=== PATIENT | male | born 1970 | race African-American/Black ===

== ENCOUNTER 2016-05-23 16:50 | Inpatient (IN) | payer MEDICARE, OTHER ==
[~2016-05-23] VITALS: Ht 172.7 cm; Wt 84.0 kg
[~2016-05-23 16:50] MED LIST: BACT800T5 PO; CALC667C; CARV12.52 PO; CEPH-460 PO; DOXE100C4 PO; FINA5TAB2 PO; HYDR-3533 PO; HYDR50TA15 PO; LOSA100T PO; NEPHRO PO; NOVO7030P2 SQ
[2016-05-23 16:54] VITALS: BP 188/86; PULSE 99; RESP 18; TEMP 99; O2SAT 94
[2016-05-23] MEDS ORDERED: ONDANSETRON HCL 4 MG/2 ML VIAL IV PUSH ONE (17:30)
[2016-05-23] MEDS ORDERED: MORPHINE SULFATE 4 MG/ML INJ IV PUSH ONE (17:30)
--- NOTE | 2016-05-23 17:31 | PD ---
HPI Chief Complaint: Cold / Flu Symptoms Time Seen by Provider: 17:27 Travel History International Travel<30 days: No Contact w/Intl Traveler<30days: No Traveled to known affect area: No History of Present Illness HPI 45-year-old male that presents to the ED for evaluation of shortness of breath with cough and runny nose as well as body aches. Per patient he has a history of diabetes with dialysis every Tuesday, , Tuesday. Per patient he missed his dose yesterday secondary to being out of town. The patient since Tuesday his been having the symptoms including a cough and some shortness of breath. Per patient is hard for him to lay down because of the shortness of breath. Per patient his been having a lot of cough that is productive with green mucus. He denies any actual chest pain but states that he does have some right upper chest pain as well as abdominal pain secondary to the coughing. He states having some diarrhea as well. No urinary issues but able to urinate. Patient denies any fevers but states having some chills and sweats. Patient denies any sick contacts. Patient does have allergies to contrast media, Reglan , seafood. Denies any headache. No blurry vision. No ear pain or throat pain. PFSH Past Medical History Anemia: Yes Arthritis: No Asthma: No (DENIES ASTHMA) Autoimmune Disease: No Blood Disorders: No Anxiety: Yes Depression: No Heart Rhythm Problems: Yes (TACHYCARDIA) Cancer: No Cardiac Catheterization: No Cardiovascular Problems: Yes (HTN) High Cholesterol: No Chemotherapy: No Chest Pain: Yes Congestive Heart Failure: No COPD: No Cerebrovascular Accident: No Diabetes: Yes Dialysis: Yes (M ) Diminished Hearing: No Endocrine: Yes Gastrointestinal Disorders: Yes (GASTROPORESIS; LBM SAT 8/1) GERD: No Glaucoma: No Genitourinary: Yes (RENAL FAILURE) Headaches: Yes Hepatitis: No Hiatal Hernia: No Hypertension: Yes Immune Disorder: No (SICKLE CELL TRAIT) Implanted Vascular Access Dvce: Yes (PORT) Kidney Stones: No Musculoskeletal: Yes (vertrabrae fx lower back) Neurologic: Yes (NEUROPATHY IN LEGS) Psychiatric: Yes (anxiety and depression) Reproductive: No Respiratory: No Immunizations Current: Yes Myocardial Infarction: No Radiation Therapy: No Renal Failure: Yes Seizures: Yes Sleep Apnea: No Thyroid Disease: No Ulcer: No PNEUMOCCOCAL Vaccine (Year): 1 Past Surgical History Abdominal Surgery: Yes (multiple surgeries due to poor sweat glands) AICD: No Arteriovenous Shunt: No Body Medical Devices: left arm fistula; right chest port TENCHKOFF Cardiac Surgery: No Coronary Artery Bypass Graft: No Ear Surgery: No Endocrine Surgery: No Eye Surgery: No Genitourinary Surgery: Yes (TENKCHOFF TUBE FOR PD ) Gynecologic Surgery: No Insulin Pump: No Joint Replacement: No Oral Surgery: No Pacemaker: No Thoracic Surgery: No Other Surgery: Yes (FISTULA UPPER LEFT ARM, ABCESS ) Social History Alcohol Use: No Tobacco Use: No Substance Use: No Allergies-Medications (Allergen,Severity, Reaction): Coded Allergies: Contrast Media (Unverified Allergy, Severe, nausea/vomiting, 04/20/16) causes n/v HAD TEST TODAY 11/15/11 TOOK BENADRYL AND DID OK. Reglan (Verified Allergy, Severe, ANXIETY, 04/20/16) Seafood (Verified Allergy, Severe, SWELLING-CANT BREATH-HIVES, 04/20/16) Reported Meds & Prescriptions Reported Meds & Active Scripts Active Lortab (Hydrocodone-Acetaminophen) 5-325 Mg Tab 1-2 Tab PO Q6H PRN Keflex (Cephalexin) 500 Mg Cap 500 Mg PO Q6H Bactrim DS (Sulfamethoxazole-Trimethoprim) 800-160 Mg Tab 1 Tab PO BID Reported Nephro-Adan Rx (Vitamin B Cmplx/Vit C/Folic AC) 1 Tab 1 Tab PO Novolin 70-30 Inj (Insulin Human Isoph/Insulin Regular) 1,000 Unit/10 Ml Vial 1 Units SQ Losartan (Losartan Potassium) 100 Mg Tab 100 Mg PO HS Hydralazine (Hydralazine HCl) 50 Mg Tab 50 Mg PO TID Take with a meal Finasteride 5 Mg Tab 5 Mg PO DAILY Do not crush. Doxepin (Doxepin HCl) 100 Mg Cap 100 Mg PO HS Carvedilol 12.5 Mg Tab 12.5 Mg PO BID Calcium Acetate (Calcium Acetate (Phosphate Bin) 667 Mg Cap Review of Systems Except as stated in HPI: all other systems reviewed are Neg Physical Exam Narrative GENERAL: SKIN: Warm and dry. HEAD: Atraumatic. Normocephalic. EYES: Pupils equal and round. No scleral icterus. No injection or drainage. ENT: No nasal bleeding or discharge. Mucous membranes pink and moist. Tongue is midline. No uvula deviation. TMs are clear with a sign of infection or perforation. No lymphadenopathy. No meningeal signs noted. No sinus tenderness. No mastoid tenderness. NECK: Trachea midline. No JVD. CARDIOVASCULAR: Regular rate and rhythm. No obvious murmurs, S3, S4. RESPIRATORY: No accessory muscle use. Mild rales in the lower lung cha.. Breath sounds equal bilaterally. GASTROINTESTINAL: Abdomen soft, non-tender, nondistended. Hepatic and splenic margins not palpable. MUSCULOSKELETAL: Extremities without clubbing, cyanosis, or edema. No obvious deformities. Full range of motion of the upper and lower extremities bilaterally. 2+ pulses bilaterally. NEUROLOGICAL: Awake and alert. No obvious cranial nerve deficits. Motor grossly within normal limits. Five out of 5 muscle strength in the arms and legs. Normal speech. PSYCHIATRIC: Appropriate mood and affect; insight and judgment normal. Data Data Last Documented VS Vital Signs Date Time Temp Pulse Resp B/P Pulse Ox O2 Delivery O2 Flow Rate FiO2 05/23/16 19:07 97 Room Air 05/23/16 19:07 97 22 172/82 2 05/23/16 16:54 99.0 Orders Electrocardiogram (05/23/16 17:08) Complete Blood Count With Diff (05/23/16 17:08) Comprehensive Metabolic Panel (05/23/16 17:08) Troponin I (05/23/16 17:08) B-Type Natriuretic Peptide (05/23/16 17:08) Prothrombin Time / Inr (Pt) (05/23/16 17:08) Act Partial Throm Time (Ptt) (05/23/16 17:08) Lipase (05/23/16 17:08) Urinalysis - C+S If Indicated (05/23/16 17:08) Chest, Pa & Lat (05/23/16 17:08) Iv Access Insert/Monitor (05/23/16 17:08) Ecg Monitoring (05/23/16 17:08) Oximetry (05/23/16 17:08) Ondansetron Inj (Zofran Inj) (05/23/16 17:30) Morphine Inj (Morphine Inj) (05/23/16 17:30) Lactic Acid (05/23/16 17:29) Influenzae A/B Antigen (05/23/16 17:33) Oxygen Administration (05/23/16 19:00) Sodium Polysty Sulfate Liq (Kayexalate L (05/23/16 19:00) Admit Order (Ed Use Only) (05/23/16 19:26) Labs Laboratory Tests Test 05/23/16 05/23/16 05/23/16 17:25 17:35 18:05 White Blood Count 7.7 TH/MM3 Red Blood Count 3.05 MIL/MM3 Hemoglobin 8.2 GM/DL Hematocrit 25.6 % Mean Corpuscular Volume 84.0 FL Mean Corpuscular Hemoglobin 26.8 PG Mean Corpuscular Hemoglobin 31.9 % Concent Red Cell Distribution Width 20.4 % Platelet Count 278 TH/MM3 Mean Platelet Volume 7.0 FL Neutrophils (%) (Auto) 71.0 % Lymphocytes (%) (Auto) 10.5 % Monocytes (%) (Auto) 13.0 % Eosinophils (%) (Auto) 4.9 % Basophils (%) (Auto) 0.6 % Neutrophils # (Auto) 5.5 TH/MM3 Lymphocytes # (Auto) 0.8 TH/MM3 Monocytes # (Auto) 1.0 TH/MM3 Eosinophils # (Auto) 0.4 TH/MM3 Basophils # (Auto) 0.0 TH/MM3 CBC Comment DIFF FINAL Differential Comment Prothrombin Time 11.9 SEC Prothromb Time International 1.1 RATIO Ratio Activated Partial 36.2 SEC Thromboplast Time Sodium Level 133 MEQ/L Potassium Level 5.7 MEQ/L Chloride Level 100 MEQ/L Carbon Dioxide Level 20.9 MEQ/L Anion Gap 12 MEQ/L Blood Urea Nitrogen 58 MG/DL Creatinine 11.58 MG/DL Estimat Glomerular Filtration 6 ML/MIN Rate Random Glucose 63 MG/DL Calcium Level 8.8 MG/DL Total Bilirubin 0.3 MG/DL Aspartate Amino Transf 17 U/L (AST/SGOT) Alanine Aminotransferase 14 U/L (ALT/SGPT) Alkaline Phosphatase 109 U/L Troponin I 0.10 NG/ML B-Type Natriuretic Peptide 226 PG/ML Total Protein 8.4 GM/DL Albumin 3.0 GM/DL Lipase 125 U/L Lactic Acid Level 0.8 mmol/L Urine Color LIGHT-YELLOW Urine Turbidity CLEAR Urine pH 7.5 Urine Specific [place] 1.008 Urine Protein 100 mg/dL Urine Glucose (UA) NEG mg/dL Urine Ketones NEG mg/dL Urine Occult Blood SMALL Urine Nitrite NEG Urine Bilirubin NEG Urine Urobilinogen LESS THAN 2.0 MG/DL Urine Leukocyte Esterase NEG Urine RBC 8 /hpf Urine WBC LESS THAN 1 /hpf Urine Squamous Epithelial <1 /hpf Cells Urine Mucus FEW /lpf Microscopic Urinalysis Comment CULT NOT INDICATED MDM Medical Decision Making Medical Screen Exam Complete: Yes Emergency Medical Condition: Yes Medical Record Reviewed: Yes Interpretation(s) Last Impressions Chest X-Ray 05/23/16 1708 Signed Impressions: Service Date/Time: Monday, May 23, 2016 17:44 - CONCLUSION: Probable mild pulmonary edema. Morgan Cameron MD CBC & BMP Diagram 05/23/16 17:25 troponin in 0.10 EKG showed sinus rhythm with no sign of acute ischemia or arrhythmia read by me and attending. Differential Diagnosis Pneumonia versus viral illness versus sinusitis versus fluid overload versus CHF versus electrolyte abnormality secondary to missed dialysis Narrative Course 45-year-old male that presents to the ED for evaluation of cough and shortness of breath. Patient was properly examined and was found to have signs and symptoms of surgery at this time. Patient does have risk factors for severe illness including full overload secondary to not having his dialysis. Labs and imaging were ordered. Patient was given pain medication and Zofran as he was throwing up. Labs and imaging showed signs and symptoms consistent with appears to be fluid overload secondary from missing dialysis. Patient is hyperkalemic. Patient does have fluid on the lungs. Likely the cause of some of his symptoms. Recommendation is to admit him. Case was discussed with Dr. Carroll who agrees to do dialysis tomorrow. He wants me to do Kayexalate for now PO to fix hyperkalemia. Residents were paged and they agreed to admission Procedures EKG Prior to Arrival: No Diagnosis Primary Impression: Pulmonary edema Qualified Code: J81.0 - Acute pulmonary edema Additional Impressions: SOB (shortness of breath) ESRD (end stage renal disease) on dialysis Elevated troponin Admitting Information Admitting Physician Requests: Admit Heriberto Herron May 23, 2016 17:31
[2016-05-23 17:45] VITALS: RESP 21; O2SAT 96
[2016-05-23 18:09] LABS: AUTOMATED NEUTROPHIL # 5.5 TH/MM3 (1.8-7.7); BASOPHIL % 0.6 % (0.0-2.0); EOSINOPHIL # 0.4 TH/MM3 (0-0.4); EOSINOPHIL % 4.9 % (0.0-4.0); HEMATOCRIT 25.6 % (39.0-51.0); HEMO FLAGS DIFF FINAL; LYMPH % 10.5 % (9.0-44.0); LYMPHOCYTE # 0.8 TH/MM3 (1.0-4.8); MEAN CORPUSCULAR HEMOGLOBIN 26.8 PG (27.0-34.0); MEAN CORPUSCULAR HGB CONC 31.9 % (32.0-36.0); PLATELET COUNT 278 TH/MM3 (150-450); RED BLOOD COUNT 3.05 MIL/MM3 (4.50-5.90); RED CELL DISTRIBUTION WIDTH 20.4 % (11.6-17.2); WHITE BLOOD COUNT 7.7 TH/MM3 (4.0-11.0)
[2016-05-23 18:14] LABS: APTT (PATIENT) 36.2 SEC (24.3-30.1); INTERNATIONAL NORMALIZED RATIO 1.1 RATIO; PROTHROMBIN TIME - PATIENT 11.9 SEC (9.8-11.6)
[2016-05-23 18:19] LABS: ANION GAP 12 MEQ/L (5-15)
[2016-05-23 18:24] LABS: ALKALINE PHOSPHATASE 109 U/L (45-117); ALT (GPT) 14 U/L (12-78); AST (GOT) 17 U/L (15-37); BICARBONATE 20.9 MEQ/L (21.0-32.0); BLOOD UREA NITROGEN 58 MG/DL (7-18); CHLORIDE 100 MEQ/L (98-107); GLOMERULAR FILTRATION RATE 6 ML/MIN (>89); POTASSIUM 5.7 MEQ/L (3.5-5.1); SODIUM (NA) 133 MEQ/L (136-145); TOTAL BILIRUBIN ADULT 0.3 MG/DL (0.2-1.0)
--- NOTE | 2016-05-23 18:26 | RADRPT ---
EXAM DATE/TIME: 05/23/2016 17:44 [facility] COMPARISON: CHEST SINGLE AP, December 29, 2014, 15:44. INDICATIONS : Shortness of breath and congestion. MEDICAL HISTORY : Diabetes mellitus type II. Hypertension. SURGICAL HISTORY : Infusaport. ENCOUNTER: Initial ACUITY: 3 days PAIN SCORE: 3/10 LOCATION: Bilateral chest FINDINGS: Right subclavian [id number] is present with tip overlapping the expected region of the SVC. Slight interstitial process is seen in the lungs bilaterally may represent pulmonary edema. Focal consolida tion is not seen. CONCLUSION: Probable mild pulmonary edema. Morgan Cameron MD on May 23, 2016 at 18:23 Board Certified Radiologist. This report was verified electronically.
[2016-05-23 18:36] LABS: BLOOD, URINE SMALL (NEG); COMMENT (UR) CULT NOT INDICATED; CULTURE IF INDICATED CULT NOT INDICATED; GLUCOSE,URINE NEG (NEG); KETONE, URINE NEG (NEG); MUCUS URINE FEW /lpf (OCC); NITRITE,URINE NEG (NEG); PH, URINE 7.5 (5.0-8.5); SQUAMOUS EPITHELIAL CELL URINE <1 /hpf (0-5); URINE COLOR LIGHT-YELLOW (YELLW/STRAW)
[2016-05-23] MEDS ORDERED: SODIUM POLYSTYRENE SULFONATE SUSP 15 GM/60 ML CUP PO ONE (19:00)
[2016-05-23 19:07] VITALS: BP 172/82; PULSE 97; RESP 22; O2SAT 100
--- NOTE | 2016-05-23 19:12 | HHI.HP ---
[facility] Service Family Medicine Primary Care Physician Blair Richardson MD Admission Diagnosis Diagnoses: International Travel<30 Days: No Contact w/Intl Traveler<30days: No Known Affected Area: No History of Present Illness Tuesday started getting a nasty cough, sneezing, diarrhea, abdominal pain with cough, pain that shoots from his right shoulder to his back, decreased appetite , couldn't lie down because of shortness of breath that felt like drowning. Because he was in [place], helping with some family affairs, he missed HD on Tuesday. Hat Blocker and PCP Dr. Richardson. Coughing up clear thick sputum. Diarrhea all liquid. Vomiting not bloody or black. 15 episodes of vomiting since Tuesday. 10 episodes of diarrhea since Tuesday. He feels weak, tired. He reports that he almost passed out walking from car to registration desk. When going from sitting to standing, he feels very dizzy. He denies chills, but endorses fever to 101F this morning. He does not make much but still makes urine. He denied any dysuria. He reports having a headache off and on since Tuesday. His headache has been constant since this morning. His headache resolved with morphine. He denies any sick contacts. He endorses sore throat from vomiting. He denies any syncope, seizures, chest pain Hasn't slept since Tuesday. All this symptoms have become progressively worse since Tuesday. Rash for over a month. He endorses body aches. Per patient he has a history of diabetes and hypertension with dialysis every Tuesday, , Tuesday. Review of Systems Constitutional: COMPLAINS OF: Fatigue, Fever, Dizziness (with standing), Change in appetite (decrease), Night Sweats, DENIES: Chills Endocrine: DENIES: Polyuria Eyes: DENIES: Blurred vision, Vision loss Ears, nose, mouth, throat: COMPLAINS OF: Throat pain, Running Nose, DENIES: Sinus Pain Respiratory: COMPLAINS OF: Cough, Wheezing, Sputum production, Shortness of breath Cardiovascular: COMPLAINS OF: Dyspnea on Exertion, Lower Extremity Edema ( right foot swollen), DENIES: Chest pain, Palpitations, Syncope Gastrointestinal: COMPLAINS OF: Abdominal pain, Diarrhea, Nausea, Vomiting, Anorexia, DENIES: Black stools, Bloody stools, Constipation Genitourinary: DENIES: Dysuria Musculoskeletal: COMPLAINS OF: Muscle aches (right shoulder to back, whole body aches) Integumentary: COMPLAINS OF: Rash (diffuse rash, worst on left arm; clearing with abx) Hematologic/lymphatic: DENIES: Bruising Neurologic: COMPLAINS OF: Headache, Localized weakness, DENIES: Paresthesias, Seizures Psychiatric: DENIES: Anxiety, Confusion, Depression Past Family Social History Past Medical History hydradenitis TIA as teenager seizures from to 11-12 yo 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 left arm fistula; right chest port for IV blood draws because he is a tough stick. Tenckhoff tube in abdomen for PD is closed. His fistula occasionally needs ballooning. Reported Medications Reported Nephro-Adan Rx (Vitamin B Cmplx/Vit C/Folic AC) 1 Tab PO qd Patient reports that he has not had to use any insulin for over a year Losartan 100 Mg PO HS Hydralazine 50 Mg PO TID Finasteride 5 Mg PO DAILY Doxepin 100 Mg PO HS Carvedilol 12.5 Mg PO BID vs. 25mg Calcium Acetate 667 Mg Cap amlodipine calcitriol Cephalexin for rash and hydradenitis Clinda for same Metronidazole 500mg Renvela 800mg Rifampin 300mg spironolactone 50mg Allergies: Coded Allergies: Contrast Media (Unverified Allergy, Severe, nausea/vomiting, 04/20/16) causes n/v HAD TEST TODAY 11/15/11 TOOK BENADRYL AND DID OK. Reglan (Verified Allergy, Severe, ANXIETY, 04/20/16) Seafood (Verified Allergy, Severe, SWELLING-CANT BREATH-HIVES, 04/20/16) Social History Alcohol Use: No Tobacco Use: No Substance Use: No Physical Exam Vital Signs Vital Signs Date Time Temp Pulse Resp B/P Pulse Ox O2 Delivery O2 Flow Rate FiO2 05/23/16 19:07 97 Room Air 05/23/16 19:07 97 22 172/82 100 Nasal Cannula 2 05/23/16 17:45 21 96 Room Air 05/23/16 17:15 21 96 Room Air 05/23/16 16:54 99.0 99 18 188/86 94 Physical Exam GENERAL: sitting up in bed, appear uncomfortable but in NAD. SKIN: Warm and dry. Surgical scars at the back of the neck. Dry scaly confluent circular lesions form of diffuse rash all over the body but most notably on the left arm HEAD: Atraumatic. Normocephalic. EYES: Pupils equal and round. No scleral icterus. No injection or drainage. ENT: No nasal bleeding or discharge. Mucous membranes pink and moist. Tongue is midline. No uvula deviation. No lymphadenopathy. No meningeal signs noted. No sinus tenderness. NECK: Trachea midline. No JVD. CARDIOVASCULAR: Regular rate and rhythm with 2 to 3/6 systolic murmur RESPIRATORY: No accessory muscle use. Mild rales in the lower lung cha. Coarse Breath sounds equal bilaterally. GASTROINTESTINAL: Positive bowel sounds. Abdomen soft, non-tender, nondistended. MUSCULOSKELETAL: Extremities without clubbing, cyanosis, or edema. No obvious deformities. Full range of motion of the upper and lower extremities bilaterally. 2+ distal pulses bilaterally. NEUROLOGICAL: Awake and alert. No obvious cranial nerve deficits. Motor grossly within normal limits. Normal speech. PSYCHIATRIC: Appropriate mood and affect; insight and judgment normal. Laboratory Laboratory Tests Test 05/23/16 05/23/16 05/23/16 17:25 17:35 18:05 White Blood Count 7.7 Red Blood Count 3.05 Hemoglobin 8.2 Hematocrit 25.6 Mean Corpuscular Volume 84.0 Mean Corpuscular Hemoglobin 26.8 Mean Corpuscular Hemoglobin 31.9 Concent Red Cell Distribution Width 20.4 Platelet Count 278 Mean Platelet Volume 7.0 Neutrophils (%) (Auto) 71.0 Lymphocytes (%) (Auto) 10.5 Monocytes (%) (Auto) 13.0 Eosinophils (%) (Auto) 4.9 Basophils (%) (Auto) 0.6 Neutrophils # (Auto) 5.5 Lymphocytes # (Auto) 0.8 Monocytes # (Auto) 1.0 Eosinophils # (Auto) 0.4 Basophils # (Auto) 0.0 CBC Comment DIFF FINAL Differential Comment Prothrombin Time 11.9 Prothromb Time International 1.1 Ratio Activated Partial 36.2 Thromboplast Time Sodium Level 133 Potassium Level 5.7 Chloride Level 100 Carbon Dioxide Level 20.9 Anion Gap 12 Blood Urea Nitrogen 58 Creatinine 11.58 Estimat Glomerular Filtration 6 Rate Random Glucose 63 Calcium Level 8.8 Total Bilirubin 0.3 Aspartate Amino Transf 17 (AST/SGOT) Alanine Aminotransferase 14 (ALT/SGPT) Alkaline Phosphatase 109 Troponin I 0.10 Total Protein 8.4 Albumin 3.0 Lipase 125 Lactic Acid Level 0.8 Urine Color LIGHT-YELLOW Urine Turbidity CLEAR Urine pH 7.5 Urine Specific [place] 1.008 Urine Protein 100 Urine Glucose (UA) NEG Urine Ketones NEG Urine Occult Blood SMALL Urine Nitrite NEG Urine Bilirubin NEG Urine Urobilinogen LESS THAN 2.0 Urine Leukocyte Esterase NEG Urine RBC 8 Urine WBC LESS THAN 1 Urine Squamous Epithelial <1 Cells Urine Mucus FEW Microscopic Urinalysis Comment CULT NOT INDICATED Date/Time Procedure Status Source Growth 05/23/16 18:10 Influenza Types A,B Antigen (HAYDE) - Final Complete Nasal Washing NEGATIVE FOR FLU A AND B ANTIGEN.... Result Diagram: 05/23/16 1725 05/23/16 1725 Imaging Last Impressions Chest X-Ray 05/23/16 1708 Signed Impressions: Service Date/Time: Monday, May 23, 2016 17:44 - CONCLUSION: Probable mild pulmonary edema. Morgan Cameron MD Course In the emergency department, patient had EKG, chest x-ray, UA, lipase, a PTT, PT /INR, BNP, troponin, CMP, CBC, lactic acid, morphine 4 mg IV push 1, Zofran 4 mg IV push 1, influenza A and B antigen, oxygen as needed, sodium polystyrene sulfate, nephrology consult in which ED physician Dr. Ammon Herron spoke with heel brusher Dr. Carroll who recommended Kayexalate for his hyperkalemia. Assessment and Plan Assessment and Plan Patient is a 45-year-old man with a history of diabetes, hypertension, hidradenitis, ESRD on HD Tuesdays, , Saturdays who missed his last hemodialysis appointment on Tuesday and is now presenting to the emergency department with progressively worsening dyspnea, vomiting, diarrhea since Tuesday , and hyperkalemia and hypertensive urgency. Code Status Full code Discussed Condition With Discussed with Dr. Zac Mejía. Problem List: (1) SOB (shortness of breath) Status: Acute Plan: See assessment and plan below (2) ESRD (end stage renal disease) on dialysis Status: Acute Plan: Patient presents with shortness of breath after missing his HD appointment on Tuesday. Consult nephrology Likely HD tomorrow Continue home medications: * Calcitriol 0.25 g by mouth daily * Renvela 800 mg (3) Abdominal pain Status: Acute Plan: Patient presents with abdominal pain. Tylenol 650 mg by mouth every 4 hours when necessary for pain, fever, headache [place] 325-5 mg 1 tab by mouth every 6 hours when necessary for pain 78, 2 tab by mouth every 6 hours when necessary for pain 9-10 Morphine 4 mg IV push every 3 hours when necessary for breakthrough pain (4) Nausea Status: Acute Plan: Patient presents with nausea and vomiting. Zofran 4 mg IV push every 6 hours when necessary for nausea or vomiting (5) Hyperkalemia Status: Acute Plan: ED physician called heel brusher pss delivery professional Dr. Carroll whose recommendations are appreciated below: Kayexalate Furthermore, plan to: Monitor potassium Give more Kayexalate if needed EKG without peaked T waves or arrhythmia. Continue to monitor on telemetry (6) Hypertensive urgency Status: Acute Plan: Patient presented with blood pressure of 188/86, and had blood pressure as high as 190/97. Patient already had headache and renal damage, with creatinine of 11.58 and troponin of 0.10. Hydralazine 10 mg IV every 6 hours when necessary for blood pressure over 170/ 100 Clonidine 0.1 mg by mouth every 6 hours when necessary for blood pressure over 170/100 Labetalol 10 mg IV every 6 hours when necessary for blood pressure over 170/100 Vasotec 1.25 mg IV every 6 hours when necessary for blood pressure over 170/100 Home blood pressure medications as below (7) Pulmonary edema Status: Acute Plan: Patient presented with BNP of 226 and probable mild pulmonary edema on chest x-ray. Likely HD tomorrow Home diuretics as below (8) Hypertension Status: Chronic Plan: Patient reportedly stable on home medications. Continue home medications: Amlodipine Carvedilol Hydralazine Spironolactone Losartan (9) Diabetes Status: Chronic Plan: Patient reports not taking any insulin for over a year. Low-dose sliding scale insulin protocol. (10) Hydradenitis Status: Acute Plan: Patient reports taking antibiotics for hidradenitis and rash. Continue reported antibiotics. Metronidazole Cephalexin Clindamycin Rifampin Bactrim (11) BPH (benign prostatic hyperplasia) Status: Acute Plan: Continue home medication: Finasteride 5 mg by mouth daily (12) Insomnia Status: Acute Plan: Stable on home medication. Continue home medications: Doxepin 100 mg by mouth daily at bedtime (13) Nutrition, metabolism, and development symptoms Status: Acute Plan: Fluids: Fluid restrict given likely volume overload Electrolytes: Kayexalate per nephrology's recommendation. Continue to monitor and correct as necessary Nutrition: Renal diet GI prophylaxis: Not indicated at this time (14) No contraindication to deep vein thrombosis (DVT) prophylaxis Status: Acute Plan: Heparin 5000 units subcutaneous every 8 hours Physician Certification 2 Midnight Certification Type: Admission for Inpatient Services Order for Inpatient Services The services are ordered in accordance with Medicare regulations or non- Medicare payer requirements, as applicable. In the case of services not specified as inpatient-only, they are appropriately provided as inpatient services in accordance with the 2-midnight benchmark. Estimated LOS (days): 2 2 days is the estimated time the patient will need to remain in the hospital, assuming treatment plan goals are met and no additional complications. Post-Hospital Plan: Not yet determined Problem Qualifiers (1) Pulmonary edema: Qualified Code: J81.0 - Acute pulmonary edema Benja Rodriguez MD R1 May 23, 2016 19:12
[2016-05-23 20:45] VITALS: BP 190/97
[2016-05-23] MEDS ORDERED: NALOXONE HCL 0.4 MG/ML AMP IV PRN (20:45)
[2016-05-23] MEDS ORDERED: ACETAMINOPHEN 325 MG TAB PO PRN (20:45)
[2016-05-23] MEDS ORDERED: ACETAMINOPHEN/HYDROcodone 325 MG/5 MG TAB PO PRN (20:45)
[2016-05-23] MEDS: MORPHINE SULFATE 4 MG/ML INJ IV PUSH PRN (20:47)
[2016-05-23] MEDS ORDERED: hydrALAZINE HCL 20 MG/ML VIAL IV PRN (21:00)
[2016-05-23] MEDS ORDERED: ENALAPRILAT 1.25 MG/ML VIAL IV PRN (21:00)
[2016-05-23] MEDS ORDERED: LABETALOL HCL 100 MG/20 ML VIAL IV PRN (21:00)
[2016-05-23] MEDS ORDERED: cloNIDine HCL 0.1 MG TAB PO PRN (21:00)
[2016-05-23] MEDS ORDERED: DEXTROSE 50% IN WATER 50 ML VIAL(D50) IV PUSH PRN (21:15)
[2016-05-23] MEDS ORDERED: GLUCAGON 1 MG/ML VIAL OTHER PRN (21:15)
[2016-05-23] MEDS: CEPHALEXIN MONOHYDRATE 500 MG CAP PO SCH (21:21)
[2016-05-23] MEDS: RIFAMPIN 150 MG CAP PO SCH (21:22)
[2016-05-23] MEDS: FINASTERIDE 5 MG TAB PO SCH (21:22)
[2016-05-23] MEDS: SULFAMETHOXAZOLE-TRIMETHOPRIM DS 800-160 MG TAB PO SCH (21:22)
[2016-05-23] MEDS: metroNIDAZOLE 500 MG TAB PO SCH (21:22)
[2016-05-23] MEDS: SPIRONOLACTONE 50 MG TAB PO SCH (21:22)
[2016-05-23] MEDS: CARVEDILOL 12.5 MG TAB PO SCH (21:22)
[2016-05-23] MEDS: CLINDAMYCIN 150 MG CAP PO SCH (21:22)
[2016-05-23] MEDS: amLODIPine BESYLATE 5 MG TAB PO SCH (21:22)
[2016-05-23] MEDS: DOXEPIN HCL 50 MG CAP PO SCH (21:23)
[2016-05-23] MEDS: LOSARTAN 50 MG TAB PO SCH (21:23)
[2016-05-23] MEDS: SODIUM CHLORIDE 0.9% FLUSH 5 ML FLUSH FLUSH SCH (21:23)
[2016-05-23] MEDS: CALCITRIOL 0.25 MCG CAP PO SCH (21:23)
[2016-05-23 21:30] VITALS: BP 158/74; PULSE 81; RESP 20; O2SAT 99
[2016-05-23] MEDS: HEPARIN SODIUM - SQ 10,000 UNITS/ML VIAL SQ SCH (22:04)
[2016-05-23 22:20] VITALS: BP 186/88; PULSE 93; RESP 17; TEMP 98.4; O2SAT 96
[2016-05-24] VITALS (10 sets, daily range): BP systolic 136–173; BP diastolic 60–74; PULSE 72–95; RESP 14–20; TEMP 97.6–98.5; O2SAT 91–100
[2016-05-24] MEDS: CLINDAMYCIN 150 MG CAP PO SCH ×5 (00:10→23:34)
[2016-05-24] MEDS: ACETAMINOPHEN/HYDROcodone 325 MG/5 MG TAB PO PRN ×3 (00:11→17:19)
[2016-05-24] MEDS: CEPHALEXIN MONOHYDRATE 500 MG CAP PO SCH ×4 (03:51→20:19)
[2016-05-24] MEDS: MORPHINE SULFATE 4 MG/ML INJ IV PUSH PRN ×3 (03:51→20:19)
[2016-05-24] MEDS: SODIUM CHLORIDE 0.9% FLUSH 5 ML FLUSH FLUSH PRN (03:51)
[2016-05-24] MEDS: HEPARIN SODIUM - SQ 10,000 UNITS/ML VIAL SQ SCH ×3 (06:00→22:07)
[2016-05-24] MEDS: metroNIDAZOLE 500 MG TAB PO SCH ×3 (06:39→22:07)
[2016-05-24] MEDS: INSULIN ASPART SUPPLEMENTAL SCALE SQ SCH ×4 (07:00→20:22)
--- NOTE | 2016-05-24 07:56 | EKG ---
Date Performed: 05/23/2016 Time Performed: 17:56:54 PTAGE: 45 years EKG: Sinus rhythm NORMAL ECG PREVIOUS TRACING : 04/28/2015 00.27 No significant change from previous tracing noted. DOCTOR: Hebert Ricks Interpretating Date/Time 05/24/2016 07:54:49
[2016-05-24] MEDS: SEVELAMER CARBONATE 800 MG TAB PO SCH ×3 (08:00→17:18)
[2016-05-24] MEDS: SODIUM CHLORIDE 0.9% FLUSH 5 ML FLUSH FLUSH SCH ×2 (09:00→20:20)
[2016-05-24] MEDS: CARVEDILOL 12.5 MG TAB PO SCH ×2 (09:02→20:19)
[2016-05-24] MEDS: hydrALAZINE HCL 50 MG TAB PO SCH ×3 (09:02→17:18)
[2016-05-24] MEDS: amLODIPine BESYLATE 5 MG TAB PO SCH (09:02)
[2016-05-24] MEDS: FINASTERIDE 5 MG TAB PO SCH (09:03)
[2016-05-24] MEDS: SULFAMETHOXAZOLE-TRIMETHOPRIM DS 800-160 MG TAB PO SCH ×2 (09:03→20:19)
[2016-05-24] MEDS: SPIRONOLACTONE 50 MG TAB PO SCH (09:03)
[2016-05-24] MEDS: CALCITRIOL 0.25 MCG CAP PO SCH (09:03)
[2016-05-24] MEDS: RIFAMPIN 150 MG CAP PO SCH ×2 (09:28→20:19)
[2016-05-24] MEDS: ONDANSETRON HCL 4 MG/2 ML VIAL IVP PRN ×2 (11:15→17:05)
[2016-05-24] MEDS: diphenhydrAMINE HCL 25 MG CAP PO PRN ×2 (11:45→22:49)
[2016-05-24] MEDS ORDERED: SODIUM CHLOR 0.9% 1000 ML INJ 1,000 ML IV PRN ×2 (12:37)
--- NOTE | 2016-05-24 12:44 | HHI.FPPN ---
Subjective Remarks Patient seen, examined and discussed with the medicine team. History and physical examination from this admission was reviewed. This is a 45-year-old male with known end-stage renal disease on hemodialysis Tuesdays, and Saturdays. He also has hypertension and had retinitis suppurativa. He missed his dialysis on Tuesday due to a family emergency. He has been coughing, short of breath, had diarrhea, decreased appetite. He currently is on antibiotics for his hidradenitis and also for his skin condition. His shortness of breath has worsened to the point where prior to admission, he could hardly lay back. This morning, he is lying down and while still somewhat short of breath seems improved. He understands that he is scheduled for hemodialysis this afternoon. Objective Vitals Vital Signs Date Time Temp Pulse Resp B/P Pulse Ox O2 Delivery O2 Flow Rate FiO2 05/24/16 09:50 96 Nasal Cannula 2.00 05/24/16 08:28 82 05/24/16 08:04 98.0 83 20 159/72 100 05/24/16 04:00 97.6 86 14 153/69 95 05/24/16 00:20 88 05/24/16 00:00 98.4 95 19 173/74 96 05/23/16 22:20 98.4 93 17 186/88 96 05/23/16 21:30 81 20 158/74 99 Nasal Cannula 2 05/23/16 20:45 190/97 05/23/16 19:07 97 Room Air 05/23/16 19:07 97 22 172/82 100 Nasal Cannula 2 05/23/16 17:45 21 96 Room Air 05/23/16 17:15 21 96 Room Air 05/23/16 16:54 99.0 99 18 188/86 94 I/O 05/23/16 05/23/16 05/23/16 05/24/16 05/24/16 05/24/16 07:00 15:00 23:00 07:00 15:00 23:00 Intake Total 60 ml 120 ml Output Total 20 ml 100 ml Balance 40 ml 20 ml Intake Oral 60 ml 120 ml Output Urine Total 20 ml 100 ml # Voids 1 Result Diagram: 05/23/16 1725 05/24/16 0158 Other Results Laboratory Tests Test 05/23/16 05/23/16 05/23/1616 17:25 17:35 18:05 00:47 White Blood Count 7.7 TH/MM3 Red Blood Count 3.05 MIL/MM3 Hemoglobin 8.2 GM/DL Hematocrit 25.6 % Mean Corpuscular Volume 84.0 FL Mean Corpuscular Hemoglobin 26.8 PG Mean Corpuscular Hemoglobin 31.9 % Concent Red Cell Distribution Width 20.4 % Platelet Count 278 TH/MM3 Mean Platelet Volume 7.0 FL Neutrophils (%) (Auto) 71.0 % Lymphocytes (%) (Auto) 10.5 % Monocytes (%) (Auto) 13.0 % Eosinophils (%) (Auto) 4.9 % Basophils (%) (Auto) 0.6 % Neutrophils # (Auto) 5.5 TH/MM3 Lymphocytes # (Auto) 0.8 TH/MM3 Monocytes # (Auto) 1.0 TH/MM3 Eosinophils # (Auto) 0.4 TH/MM3 Basophils # (Auto) 0.0 TH/MM3 CBC Comment DIFF FINAL Differential Comment Prothrombin Time 11.9 SEC Prothromb Time International 1.1 RATIO Ratio Activated Partial 36.2 SEC Thromboplast Time Sodium Level 133 MEQ/L Potassium Level 5.7 MEQ/L 5.5 MEQ/L Chloride Level 100 MEQ/L Carbon Dioxide Level 20.9 MEQ/L Anion Gap 12 MEQ/L Blood Urea Nitrogen 58 MG/DL Creatinine 11.58 MG/DL Estimat Glomerular Filtration 6 ML/MIN Rate Random Glucose 63 MG/DL Calcium Level 8.8 MG/DL Total Bilirubin 0.3 MG/DL Aspartate Amino Transf 17 U/L (AST/SGOT) Alanine Aminotransferase 14 U/L (ALT/SGPT) Alkaline Phosphatase 109 U/L Troponin I 0.10 NG/ML B-Type Natriuretic Peptide 226 PG/ML Total Protein 8.4 GM/DL Albumin 3.0 GM/DL Lipase 125 U/L Lactic Acid Level 0.8 mmol/L Urine Color LIGHT-YELLOW Urine Turbidity CLEAR Urine pH 7.5 Urine Specific [place] 1.008 Urine Protein 100 mg/dL Urine Glucose (UA) NEG mg/dL Urine Ketones NEG mg/dL Urine Occult Blood SMALL Urine Nitrite NEG Urine Bilirubin NEG Urine Urobilinogen LESS THAN 2.0 MG/DL Urine Leukocyte Esterase NEG Urine RBC 8 /hpf Urine WBC LESS THAN 1 /hpf Urine Squamous Epithelial <1 /hpf Cells Urine Mucus FEW /lpf Microscopic Urinalysis Comment CULT NOT INDICATED Test 05/24/16 01:58 Random Glucose 49 MG/DL Imaging Last Impressions Chest X-Ray 05/23/16 1708 Signed Impressions: Service Date/Time: Monday, May 23, 2016 17:44 - CONCLUSION: Probable mild pulmonary edema. Morgan Cameron MD Objective Remarks O. CONSTITUTIONAL/GEN: normally nourished, in some respiratory distress with shortness of breath EYES: conjunctiva normal, PERRLA, EOMI. sclerae are muddy ENT: Mouth and pharynx normal. Moist mucous membranes NECK: thyroid midline, carotids symmetrical. Posterior neck reveals acne knee keloidalis nuchae. LUNGS: clear A-P, respiratory effort is normal. Moving adequate air, coarse sounds bilaterally without wheezes. CARDIOVASCULAR: RR without murmur or gallop. No significant edema. GI/ABD: soft without masses, without organomegaly. Bowel sounds present : no CVA tenderness NEURO: No focal deficits. SKIN: Chronic skin changes from his retinitis suppurativa and a lichen-like rash on all his extremities. Scarring in the axilla from surgeries on his history of hidradenitis suppurativa HEME/LYMPH: no bruising, petechia or significant adenopathy MUSC: back is normal in appearance. Extremities are normal in appearance. PSYCH/MENTAL STATUS: Alert and oriented x 3. A/P Assessment and Plan Patient is a 45-year-old man with a history of diabetes, hypertension, hidradenitis, ESRD on HD Tuesdays, , Saturdays who missed his last hemodialysis appointment on Tuesday and is now presenting to the emergency department with progressively worsening dyspnea, vomiting, diarrhea since Tuesday , and hyperkalemia and hypertensive urgency. Discharge Planning Anticipate discharge today after hemodialysis Attending Attestation Patient seen and examined. Case reviewed and discussed with the resident team. Agree with plan of care as discussed with me and documented in the orders. Problem List: (1) SOB (shortness of breath) Status: Acute Plan: See assessment and plan below; somewhat improved overnight. Anticipate much improvement with dialysis. (2) ESRD (end stage renal disease) on dialysis Status: Acute Plan: Patient presents with shortness of breath after missing his HD appointment on Tuesday. Consult nephrology Dialysis this afternoon, then likely resume his regular schedule Continue home medications: * Calcitriol 0.25 g by mouth daily * Renvela 800 mg (3) Abdominal pain Status: Acute Plan: Patient presents with abdominal pain; improved this morning. Tylenol 650 mg by mouth every 4 hours when necessary for pain, fever, headache Armstrong 325-5 mg 1 tab by mouth every 6 hours when necessary for pain 78, 2 tab by mouth every 6 hours when necessary for pain 9-10 Morphine 4 mg IV push every 3 hours when necessary for breakthrough pain (4) Nausea Status: Acute Plan: Patient presented with nausea and vomiting ; improved Zofran 4 mg IV push every 6 hours when necessary for nausea or vomiting (5) Hyperkalemia Status: Acute Plan: ED physician called naphthalene operator weatherization operations manager Dr. Carroll whose recommendations are appreciated below: Kayexalate Furthermore, plan to: Monitor potassium Give more Kayexalate if needed EKG without peaked T waves or arrhythmia. Continue to monitor on telemetry (6) Hypertensive urgency Status: Acute Plan: Patient presented with blood pressure of 188/86, and had blood pressure as high as 190/97. Patient already had headache and renal damage, with creatinine of 11.58 and troponin of 0.10. Hydralazine 10 mg IV every 6 hours when necessary for blood pressure over 170/ 100 Clonidine 0.1 mg by mouth every 6 hours when necessary for blood pressure over 170/100 Labetalol 10 mg IV every 6 hours when necessary for blood pressure over 170/100 Vasotec 1.25 mg IV every 6 hours when necessary for blood pressure over 170/100 Home blood pressure medications as below (7) Pulmonary edema Status: Acute Plan: Patient presented with BNP of 226 and probable mild pulmonary edema on chest x-ray. Hemodialysis this afternoon Home diuretics as below (8) Hypertension Status: Chronic Plan: Patient reportedly stable on home medications. Continue home medications: Amlodipine Carvedilol Hydralazine Spironolactone Losartan (9) Diabetes Status: Chronic Plan: Patient reports not taking any insulin for over a year. Low-dose sliding scale insulin protocol. (10) Hydradenitis Status: Chronic Plan: Patient reports taking antibiotics for hidradenitis and rash. Continue reported antibiotics. Metronidazole Cephalexin Clindamycin Rifampin Bactrim (11) BPH (benign prostatic hyperplasia) Status: Chronic Plan: Continue home medication: Finasteride 5 mg by mouth daily (12) Insomnia Status: Chronic Plan: Stable on home medication. Continue home medications: Doxepin 100 mg by mouth daily at bedtime (13) Nutrition, metabolism, and development symptoms Status: Chronic Plan: Fluids: Fluid restrict given likely volume overload Electrolytes: Kayexalate per nephrology's recommendation. Continue to monitor and correct as necessary Nutrition: Renal diet GI prophylaxis: Not indicated at this time (14) No contraindication to deep vein thrombosis (DVT) prophylaxis Status: Acute Plan: Heparin 5000 units subcutaneous every 8 hours Problem Qualifiers (1) Pulmonary edema: Qualified Code: J81.0 - Acute pulmonary edema Ciara Mejía MD May 24, 2016 12:44
[2016-05-24] MEDS ORDERED: GENTAMICIN SULFATE (DIALYSIS USE ONLY) 20 MG/2 ML VIAL IV PRN (12:45)
[2016-05-24] MEDS ORDERED: ACETAMINOPHEN 325 MG TAB PO PRN (12:45)
[2016-05-24] MEDS ORDERED: SODIUM CHLORIDE 0.9% FLUSH 5 ML FLUSH IVF PRN (12:45)
[2016-05-24] MEDS ORDERED: HEPARIN SODIUM - IV 10,000 UNITS/10 ML VIAL IVF PRN (12:45)
[2016-05-24] MEDS ORDERED: HEPARIN SODIUM - IV 10,000 UNITS/10 ML VIAL PRN (12:45)
[2016-05-24] MEDS ORDERED: ONDANSETRON HCL 4 MG/2 ML VIAL IV PRN (12:45)
[2016-05-24] MEDS ORDERED: ALBUMIN HUMAN 25% 25 GM/100 ML BAGP IV PRN (12:45)
[2016-05-24] MEDS ORDERED: NITROGLYCERIN 0.4 MG SL 25 TABS/BTL SL PRN (12:45)
[2016-05-24] MEDS ORDERED: diphenhydrAMINE HCL 25 MG CAP PO PRN (12:45)
[2016-05-24] MEDS ORDERED: MANNITOL 12.5 GM/50 ML VIAL IV PRN (12:45)
[2016-05-24] MEDS ORDERED: cloNIDine HCL 0.1 MG TAB PO PRN (12:45)
--- NOTE | 2016-05-24 13:14 | HHI.DCPOC ---
Discharge Care Plan Goals to Promote Your Health * To prevent worsening of your condition and complications take all medications as prescribed * To maintain your health at the optimal level follow up with your PCP in one week Directions to Meet Your Goals Take your medications as prescribed Follow your dietary instruction Follow activity as directed Keep your appointments as scheduled Take your immunizations and boosters as scheduled If your symptoms worsen call your PCP, if no PCP go to Urgent Care Center or Emergency Room Smoking is Dangerous to Your Health. Avoid second hand smoke Call the 24-hour hour crisis hotline for domestic abuse at Shayy Vital MD R3 May 24, 2016 13:14
[2016-05-24] MEDS: SODIUM CHLOR 0.9% 1000 ML INJ 1,000 ML IV PRN ×3 (15:00→17:04)
[2016-05-24] MEDS: EPOETIN ALFA 10,000 UNITS/ML VIAL IV PRN (15:00)
[2016-05-24] MEDS: GELATIN 12 MM/7 MM FOAM TOP PRN (15:01)
--- NOTE | 2016-05-24 15:33 | MB ---
cc: YAMILKA HUDSON MD DATE OF CONSULTATION: 05/24/2016 REASON FOR CONSULTATION End-stage renal disease on hemodialysis, for management. HISTORY OF PRESENT ILLNESS This is a 45-year-old male known to me from before with past medical history of hypertension, diabetes mellitus, end-stage renal disease on hemodialysis, history of hidradenitis, gastroparesis, came to the hospital with complaint of cough, abdominal pain, diarrhea and fever. I was called to see the patient because of management of dialysis. The patient has been on hemodialysis Tuesday, and Tuesday and he missed his dialysis on Tuesday. According to the patient he missed dialysis because he went for some family emergency to [place] and he was not feeling well after that as he started having nausea, vomiting, abdominal pain and loose bowel motion and he also has fever of 101 yesterday morning and he decided to come to the hospital. He has some nausea and he vomited off and on, he is not eating well. He has some loose bowel motion. The abdominal pain is mainly in the epigastric area. He also has shortness of breath with cough with whitish sputum. No chest pain, no palpitation. When he arrived here it was found that his temperature was 99 and his blood pressure was a little bit on the higher side and since then he still has been afebrile. His potassium was 5.7 on presentation which after Kayexalate has gone down to 5.5. The patient is with nasal cannula and his breathing is not very bad and he is still coughing and having nausea, not eating well. The abdominal pain is mainly in the epigastric area. There is no history of diarrhea now but he had loose bowel motion at home. PAST MEDICAL HISTORY 1. Hypertension. 2. Diabetes mellitus. 3. History of hidradenitis. 4. Gastroparesis. 5. Chronic anemia. 6. End-stage renal disease on hemodialysis. 7. History of seizure disorder. 8. Anxiety. PAST SURGICAL HISTORY 1. AV fistula surgery. 2. Multiple surgeries for hidradenitis in his groin area. SOCIAL HISTORY There is no history of smoking or alcoholism. FAMILY HISTORY Family history is noncontributory. REVIEW OF SYSTEMS The patient is alert, just feeling tired. He had a fever at home but has been afebrile here. He is not eating well, the appetite has decreased and he has nausea and vomiting off and on along with loose bowel motion. There is shortness of breath with cough and whitish sputum. No chest pain. No palpitation. ALLERGIES He has allergy to CONTRAST MEDIA, REGLAN AND SEAFOOD. MEDICATIONS Currently he is on: 1. Carvedilol 12.5 mg b.i.d. 2. Bactrim DS one tablet b.i.d. 3. Proscar 5 mg once a day. 4. Amlodipine 5 mg daily. 5. Calcitriol 0.25 mcg daily. 6. Spironolactone 50 mg daily. 7. Doxepin 100 mg q.h.s. 8. Losartan 100 mg q.h.s. 9. Rifampin 300 mg q. 12-hour. 10. Keflex 500 mg q. 6-hour. 11. Cleocin 450 mg q. 6-hour. 12. Metronidazole 500 mg q. 8-hour. 13. Insulin Aspart sliding scale. 14. Hydralazine 50 mg t.i.d. 15. Renvela 800 mg t.i.d. 16. Zofran as needed. PHYSICAL EXAMINATION GENERAL: On examination the patient is awake, alert. He is not in any distress. VITAL SIGNS: His last blood pressure is 159/70, temperature 98, oxygen saturation on 2 liters nasal cannula 96%. HEENT: Pupils equally reacting to light. Nonicteric sclerae. Conjunctivae pale. NECK: Supple. JVD is not elevated. LUNGS: The patient has bilateral good air entry with few basilar rales. HEART: S1, S2, regular rhythm. ABDOMEN: Soft, lax. There is epigastric tenderness. There is no rebound or rigidity. Bowel sounds are positive. EXTREMITIES: He has 1+ leg edema in both legs. INVESTIGATION WBC count is 7.7, hemoglobin 8.2, platelet count of 278, neutrophils 71%, eosinophil 4.9%, sodium 133, potassium 5.7, repeat potassium of 5.5, bicarb 20.9, BUN 58, creatinine 11.5, total protein 8.4, albumin of 3.0, lipase 125. INR is 1.1. Urinalysis showing protein of 100. IMAGING STUDIES The patient had a chest x-ray done and it shows that he has mild pulmonary edema. ASSESSMENT/PLAN 1. Shortness of breath and mild pulmonary edema. 2. End-stage renal disease on hemodialysis. 3. Hyperkalemia. 4. Hypertension, uncontrolled. 5. Diabetes mellitus. 6. History of hidradenitis. 7. Anemia. The patient has been admitted for observation and it seems like his breathing is not very bad but he is still requiring 2 liters of nasal cannula. His days for dialysis are Tuesday, and Tuesday but he missed the dialysis on just Tuesday, so we will dialyze him today and tomorrow again. He is getting antibiotic for his hidradenitis which will be continued and possibly has some kind of viral infection causing all of his GI symptoms, so will observe for it and hopefully will see some improvement. He has been afebrile so far. Thank you for the consultation and I will follow the patient while he is in the hospital. MD JOSE DE JESUS Wilson/TLSander /12:32 PM /3:04 PM
[2016-05-24 20:00] LABS: AUTOMATED NEUTROPHIL # 4.9 TH/MM3 (1.8-7.7); BASOPHIL % 0.4 % (0.0-2.0); EOSINOPHIL # 0.4 TH/MM3 (0-0.4); EOSINOPHIL % 6.1 % (0.0-4.0); HEMATOCRIT 24.5 % (39.0-51.0); HEMO FLAGS DIFF FINAL; LYMPH % 8.8 % (9.0-44.0); LYMPHOCYTE # 0.6 TH/MM3 (1.0-4.8); MEAN CELL VOLUME 82.9 FL (80.0-100.0); MEAN CORPUSCULAR HEMOGLOBIN 27.7 PG (27.0-34.0); MEAN CORPUSCULAR HGB CONC 33.4 % (32.0-36.0); NEUT % 72.7 % (16.0-70.0); PLATELET COUNT 260 TH/MM3 (150-450); RED BLOOD COUNT 2.95 MIL/MM3 (4.50-5.90); RED CELL DISTRIBUTION WIDTH 19.7 % (11.6-17.2); WHITE BLOOD COUNT 6.8 TH/MM3 (4.0-11.0)
[2016-05-24] MEDS: LOSARTAN 50 MG TAB PO SCH (20:19)
[2016-05-24] MEDS: DOXEPIN HCL 50 MG CAP PO SCH (20:19)
[2016-05-24 21:07] LABS: BICARBONATE 28.4 MEQ/L (21.0-32.0); POTASSIUM 4.2 MEQ/L (3.5-5.1)
[2016-05-25] VITALS (13 sets, daily range): BP systolic 117–154; BP diastolic 56–70; PULSE 78–92; RESP 17–20; TEMP 96.8–99.2; O2SAT 90–100
[2016-05-25] MEDS: ACETAMINOPHEN/HYDROcodone 325 MG/5 MG TAB PO PRN ×2 (01:11→16:46)
[2016-05-25] MEDS: CEPHALEXIN MONOHYDRATE 500 MG CAP PO SCH ×4 (02:57→20:26)
[2016-05-25] MEDS: MORPHINE SULFATE 4 MG/ML INJ IV PUSH PRN ×3 (02:58→20:12)
[2016-05-25 05:49] LABS: HEMATOCRIT 24.9 % (39.0-51.0); MEAN CELL VOLUME 84.1 FL (80.0-100.0); MEAN CORPUSCULAR HEMOGLOBIN 27.4 PG (27.0-34.0); MEAN CORPUSCULAR HGB CONC 32.6 % (32.0-36.0); PLATELET COUNT 241 TH/MM3 (150-450); RED BLOOD COUNT 2.96 MIL/MM3 (4.50-5.90); REVIEW FLAG FINAL; WHITE BLOOD COUNT 5.8 TH/MM3 (4.0-11.0)
[2016-05-25 06:08] LABS: POTASSIUM 4.5 MEQ/L (3.5-5.1)
[2016-05-25] MEDS: CLINDAMYCIN 150 MG CAP PO SCH ×3 (06:09→17:50)
[2016-05-25] MEDS: HEPARIN SODIUM - SQ 10,000 UNITS/ML VIAL SQ SCH ×4 (06:09→20:30)
[2016-05-25] MEDS: metroNIDAZOLE 500 MG TAB PO SCH ×3 (06:09→20:27)
[2016-05-25] MEDS: INSULIN ASPART SUPPLEMENTAL SCALE SQ SCH ×4 (07:00→20:29)
[2016-05-25] MEDS: SEVELAMER CARBONATE 800 MG TAB PO SCH ×3 (08:00→16:35)
[2016-05-25] MEDS: RIFAMPIN 150 MG CAP PO SCH ×2 (08:37→20:26)
[2016-05-25] MEDS: CARVEDILOL 12.5 MG TAB PO SCH ×2 (08:38→20:27)
[2016-05-25] MEDS: SULFAMETHOXAZOLE-TRIMETHOPRIM DS 800-160 MG TAB PO SCH ×2 (08:38→20:26)
[2016-05-25] MEDS: CALCITRIOL 0.25 MCG CAP PO SCH (08:38)
[2016-05-25] MEDS: FINASTERIDE 5 MG TAB PO SCH (08:38)
[2016-05-25] MEDS: hydrALAZINE HCL 50 MG TAB PO SCH ×3 (08:38→17:50)
[2016-05-25] MEDS: amLODIPine BESYLATE 5 MG TAB PO SCH (08:38)
[2016-05-25] MEDS: SPIRONOLACTONE 50 MG TAB PO SCH (08:38)
[2016-05-25] MEDS: SODIUM CHLORIDE 0.9% FLUSH 5 ML FLUSH FLUSH SCH ×2 (08:42→20:30)
[2016-05-25] MEDS: diphenhydrAMINE HCL 25 MG CAP PO PRN ×2 (08:55→20:11)
[2016-05-25] MEDS: SODIUM CHLORIDE 0.9% FLUSH 5 ML FLUSH FLUSH PRN (08:56)
--- NOTE | 2016-05-25 09:30 | HHI.FPPN ---
Subjective Remarks Patient doing relatively well this morning. He continues to have itching and states that Benadryl is not preventing it. He carries to have some difficulty breathing. He is aware he is going to hemodialysis later today. No chest pain. (Maurice Mejía MD R2) Objective Vitals Vital Signs Date Time Temp Pulse Resp B/P Pulse Ox O2 Delivery O2 Flow Rate FiO2 05/25/16 08:28 94 05/25/16 08:03 97.8 78 20 127/59 90 05/25/16 07:16 99 Nasal Cannula 2.00 05/25/16 07:10 Nasal Cannula 3.00 Humidified 05/25/16 04:00 97.5 82 20 129/60 100 05/25/16 00:31 96.8 87 20 144/67 96 05/24/16 21:01 87 05/24/16 20:00 Nasal Cannula 3.00 05/24/16 20:00 98.5 92 18 144/60 98 05/24/16 16:02 98.0 88 19 165/73 91 05/24/16 12:02 98.0 72 20 136/60 96 05/24/16 09:50 96 Nasal Cannula 2.00 I/O 05/24/16 05/24/16 05/24/16 05/25/16 05/25/16 05/25/16 07:00 15:00 23:00 07:00 15:00 23:00 Intake Total 120 ml 480 ml Output Total 100 ml 50 ml 4000 ml Balance 20 ml 430 ml -4000 ml Intake Oral 120 ml 480 ml Output Urine Total 100 ml 50 ml Hemodialysis 4000 ml # Voids 0 0 # Bowel Movements 0 0 0 (Maurice Mejía MD R2) Result Diagram: 05/25/1652605/25/16526 Objective Remarks O. CONSTITUTIONAL/GEN: normally nourished, appears chronically ill. EYES: conjunctiva normal, PERRLA, EOMI. sclerae are muddy ENT: Mouth and pharynx normal. Moist mucous membranes NECK: thyroid midline, carotids symmetrical. Posterior neck reveals acne knee keloidalis nuchae. LUNGS: clear A-P, respiratory effort is normal. Moving adequate air, coarse sounds bilaterally without wheezes. CARDIOVASCULAR: RR without murmur or gallop. No significant edema. GI/ABD: soft without masses, without organomegaly. Bowel sounds present : no CVA tenderness NEURO: No focal deficits. SKIN: Chronic skin changes from his retinitis suppurativa and a lichen-like rash on all his extremities. Scarring in the axilla from surgeries on his history of hidradenitis suppurativa HEME/LYMPH: no bruising, petechia or significant adenopathy MUSC: back is normal in appearance. Extremities are normal in appearance. PSYCH/MENTAL STATUS: Alert and oriented x 3. (Maurice Mejía MD R2) A/P Assessment and Plan Patient is a 45-year-old man with a history of diabetes, hypertension, hidradenitis, ESRD on HD Tuesdays, , Saturdays who missed his last hemodialysis appointment on Tuesday. Nephrology has been consult. He underwent hemodialysis on 05/24. Planning on hemodialysis 05/25. Discharge Planning Anticipate discharge today after hemodialysis (Maurice Mejía MD R2) Attending Attestation Patient seen and examined. Case reviewed and discussed with the resident team. Agree with plan of care as discussed with me and documented in the resident note. (Ciara Mejía MD) Problem List: (1) SOB (shortness of breath) Status: Acute Plan: See assessment and plan below; somewhat improved overnight. Anticipate much improvement with dialysis. (2) ESRD (end stage renal disease) on dialysis Status: Acute Plan: Patient presents with shortness of breath after missing his HD appointment on Tuesday. Consult nephrology -Patient underwent hemodialysis on 05/24; Dialysis this afternoon, then likely resume his regular schedule Continue home medications: * Calcitriol 0.25 g by mouth daily * Renvela 800 mg (3) Abdominal pain Status: Acute Plan: Patient presents with abdominal pain; improved this morning. Tylenol 650 mg by mouth every 4 hours when necessary for pain, fever, headache [place] 325-5 mg 1 tab by mouth every 6 hours when necessary for pain 78, 2 tab by mouth every 6 hours when necessary for pain 9-10 Morphine 4 mg IV push every 3 hours when necessary for breakthrough pain (4) Nausea Status: Acute Plan: Patient presented with nausea and vomiting ; improved Zofran 4 mg IV push every 6 hours when necessary for nausea or vomiting (5) Hyperkalemia Status: Resolved Plan: Now resolved. Anticipate continued improvement with HD schedule. (6) Hypertensive urgency Status: Resolved Plan: Resolved. Blood pressure normal overnight. Hydralazine 10 mg IV every 6 hours when necessary for blood pressure over 170/ 100 Clonidine 0.1 mg by mouth every 6 hours when necessary for blood pressure over 170/100 Labetalol 10 mg IV every 6 hours when necessary for blood pressure over 170/100 Vasotec 1.25 mg IV every 6 hours when necessary for blood pressure over 170/100 Home blood pressure medications as below (7) Pulmonary edema Status: Resolved Plan: Patient presented with BNP of 226 and probable mild pulmonary edema on chest x-ray. Hemodialysis this afternoon Home diuretics as below (8) Hypertension Status: Chronic Plan: Patient reportedly stable on home medications. Continue home medications: Amlodipine Carvedilol Hydralazine Spironolactone Losartan (9) Diabetes Status: Chronic Plan: Patient reports not taking any insulin for over a year. Low-dose sliding scale insulin protocol. (10) Hydradenitis Status: Chronic Plan: Patient reports taking antibiotics for hidradenitis and rash. Continue reported antibiotics. Metronidazole Cephalexin Clindamycin Rifampin Bactrim (11) BPH (benign prostatic hyperplasia) Status: Chronic Plan: Continue home medication: Finasteride 5 mg by mouth daily (12) Insomnia Status: Chronic Plan: Stable on home medication. Continue home medications: Doxepin 100 mg by mouth daily at bedtime (13) Nutrition, metabolism, and development symptoms Status: Chronic Plan: Fluids: Fluid restrict given likely volume overload Electrolytes: Monitor and correct when necessary Nutrition: Renal diet GI prophylaxis: Not indicated at this time (14) No contraindication to deep vein thrombosis (DVT) prophylaxis Status: Acute Plan: Heparin 5000 units subcutaneous every 8 hours (Maurice Mejía MD R2) Problem Qualifiers (1) Pulmonary edema: Qualified Code: J81.0 - Acute pulmonary edema (2) Diabetes: Qualified Code: E11.8 - Type 2 diabetes mellitus with complication, without long-term current use of insulin Maurice Mejía MD R2 May 25, 2016 09:30 Ciara Mejía MD May 25, 2016 15:19
--- NOTE | 2016-05-25 14:21 | HHI.NPPN ---
Subjective General Problems: Anemia, Edema, Heart Disease, Hypertension Renal Failure: End Stage Renal Disease History of Present Illness 45-year-old male known to me from before with past medical history of hypertension, diabetes mellitus, end-stage renal disease on hemodialysis, history of hidradenitis, gastroparesis, came to the hospital with complaint of cough, abdominal pain, diarrhea and fever. I was called to see the patient because of management of dialysis. The patient has been on hemodialysis Tuesday, and Tuesday. Additional Remarks Patient is alert, seen during HD, has moderate SOB, with nasal cannula. Review of Systems General Constitutional: Fatigue Respiratory Lungs: SOB, Cough, Sputum, Wheeze Cardiovascular Cardiac: Edema, PAZ Objective Data Data 05/24/16 05/25/16 19:00 07:00 Intake Total 480 ml Output Total 4050 ml Balance -3570 ml Intake Oral 480 ml Output Urine Total 50 ml Hemodialysis 4000 ml # Voids 0 # Bowel Movements 0 0 Vital Signs Date Time Temp Pulse Resp B/P Pulse Ox O2 Delivery O2 Flow Rate FiO2 05/25/16 12:08 98.0 78 20 117/56 93 05/25/16 08:28 94 05/25/16 08:03 97.8 78 20 127/59 90 05/25/16 07:16 99 Nasal Cannula 2.00 05/25/16 07:10 Nasal Cannula 3.00 Humidified 05/25/16 04:00 97.5 82 20 129/60 100 05/25/16 00:31 96.8 87 20 144/67 96 05/24/16 21:01 87 05/24/16 20:00 Nasal Cannula 3.00 05/24/16 20:00 98.5 92 18 144/60 98 05/24/16 16:02 98.0 88 19 165/73 91 -: 05/25/16 0527 05/25/16 0527 Physical Exam General Appearance: Well Nourished, No Acute Distress, Comfortable Eyes Eye Exam: Pupils Equal Throat Throat Exam: Oral Mucosa Alsen & Moist Neck Neck Exam: Neck Supple Pulmonary Resp Exam: Crackles, Rhonchi, Sputum, Decreased Bases, Diminished Breath Sounds Cardiology CV Exam: Regular, Normal Sinus Rhythm Gastrointestinal/Abdomen GI Exam: Soft, Non-Tender, Bowel Sounds Present, Distended Extremeties Extremities Exam: Moderate Edema, Pitting Edema, Dependent Edema Neurologic Neuro Exam: Alert, Awake, Oriented Psychiatric Psych Exam: Appropriate Responses Assessment/Plan Assessment Summary: Anemia of CKD, Fluid/Volume Overload, Hypertension, End Stage Renal Disease Problem List: (1) Anemia due to chronic kidney disease (2) Benign hypertension (3) SOB (shortness of breath) (4) Hypertension (5) Diabetes (6) Hydradenitis (7) ESRD (end stage renal disease) on dialysis Plan Patient is on HD again, as he missed treatment last Sat. Now removing 4 liters. BP is stable. Still has SOB. For possible D/C if gets better. Told to restrict fluid intake. Problem Qualifiers (1) Diabetes: Qualified Code: E11.8 - Type 2 diabetes mellitus with complication, without long-term current use of insulin Teresita Carroll MD May 25, 2016 14:21
[2016-05-25] MEDS: DOXEPIN HCL 50 MG CAP PO SCH (20:26)
[2016-05-25] MEDS: LOSARTAN 50 MG TAB PO SCH (20:26)
[2016-05-25] MEDS: ONDANSETRON HCL 4 MG/2 ML VIAL IVP PRN (21:42)
--- NOTE | 2016-05-25 22:18 | HHI.PR ---
Addendum to Inpatient Note Addendum Reason: Additional Documentation Additional Information HALICAT NOTE Subjective: Residents were called @2150 regarding Halicat. Per nursing report, patient went to bathroom and returned complaining of nausea, vomiting, feeling poorly. VS were collected; he was found to have O2 sat of 85%, BSG 183. Patient states he feels poorly and has SOB but denies chest pain. He is s/p dialysis today and yesterday (4-4.5L each episode). He also had episode of hypoglycemia to 40s this afternoon, resolved with food. Objective: VS: 97.9F, P 87, RR 20s, BP 142/70. Gen: Patient is lying in bed, diaphoretic, with O2 by NC at 2L rate. Diaphoretic. 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 On exam he is diaphoretic. EKG showing SR rate 96, normal axis, normal intervals, possible noncontiguous STD in 2, avf, and possible STD v4 v5, v6. Unchanged from EKG on admission. Differential includes ACS, response to rapid diuresis (8L in 2 days), glucose instability, PE. Hypoxia not sustained, low suspicion for PE. Notably, Wells score is 0; other diagnoses more likely causing sx Glucose 183 Plan: Stat CBC, CMP, ABG ACS rule out (TnI, CK-MB, EKG) with first enzymes/EKG stat Duonebs q4hr while awake NC titrate for O sat >92% Will follow up results, if abnl, further workup and mgmt will be initiated Patient SDW Dr. Shayy Vital (Ann Badillo MD R1) Addendum Reason: Additional Documentation Additional Information Pt. seen in his room on the a.m. of 05-26-16 and pt. was c/o nausea, vomiting, drainage from two wounds (left axilla and left upper lateral thigh). Pt seen and examined with Dr. cabello and discussed with Dr. Badillo who was present for the Halicat. thus far, two troponins have been trended and stable. (Ciara Mejía MD) Ann Badillo MD R1 May 25, 2016 22:18 Ciara Mejía MD May 26, 2016 11:28
[2016-05-25 22:37] LABS: BLOOD GAS BASE EXCESS 5.5 mmol/L (-2-2); BLOOD GAS HCO3 30 mmol/L (22-26); BLOOD GAS O2 HGB SATURATION 96 % (90-100); BLOOD GAS OXYGEN CONTENT 12.5 Vol % (12.0-20.0); BLOOD GAS PCO2 49 mmHg (38-42); BLOOD GAS PO2 116 mmHg (61-120); BLOOD GAS TOTAL HGB 9.1 G/DL (12.0-16.0); CRITICAL VALUE NO; DRAW SITE RT BRACHIAL; LITER FLOW 3 L/M; NUMBER OF ARTERIAL PUNCTURES 1; OXYGEN DEVICE NASAL CANNULA; TEMP CORR TO 98.6
[2016-05-25 22:38] LABS: STAT YES
[2016-05-25 22:50] LABS: AUTOMATED NEUTROPHIL # 3.7 TH/MM3 (1.8-7.7); BASOPHIL # 0.1 TH/MM3 (0-0.2); EOSINOPHIL # 0.2 TH/MM3 (0-0.4); EOSINOPHIL % 4.4 % (0.0-4.0); HEMO FLAGS DIFF FINAL; LYMPH % 14.7 % (9.0-44.0); LYMPHOCYTE # 0.8 TH/MM3 (1.0-4.8); MEAN CELL VOLUME 83.2 FL (80.0-100.0); MEAN CORPUSCULAR HEMOGLOBIN 27.2 PG (27.0-34.0); MEAN CORPUSCULAR HGB CONC 32.6 % (32.0-36.0); MONO % 12.9 % (0.0-8.0); PLATELET COUNT 274 TH/MM3 (150-450); RED BLOOD COUNT 3.24 MIL/MM3 (4.50-5.90); RED CELL DISTRIBUTION WIDTH 19.9 % (11.6-17.2); WHITE BLOOD COUNT 5.6 TH/MM3 (4.0-11.0)
--- NOTE | 2016-05-25 23:16 | RADRPT ---
EXAM DATE/TIME: 05/25/2016 22:20 [facility] COMPARISON: CHEST SINGLE AP, December 29, 2014, 15:44. INDICATIONS : Shortness of breath. MEDICAL HISTORY : Hypertension. Diabetes mellitus type II. SURGICAL HISTORY : Infusaport ENCOUNTER: Subsequent ACUITY: 4 - 6 days PAIN SCORE: 8/10 LOCATION: Bilateral chest FINDINGS: There is a right-sided Rafqwa-p-Otpa in place with tip overlying the SVC. The heart size is borderlin e enlarged. There some mild increased density medial right base. The left lung is grossly clear. CONCLUSION: Borderline cardiomegaly. Suspected mild atelectasis or consolidation at the medial right lung base. Casimiro Zapata MD on May 25, 2016 at 23:13 Board Certified Radiologist. This report was verified electronically.
[2016-05-25 23:21] LABS: ANION GAP 9 MEQ/L (5-15); AST (GOT) 16 U/L (15-37); BICARBONATE 31.6 MEQ/L (21.0-32.0); BLOOD UREA NITROGEN 28 MG/DL (7-18); CHLORIDE 96 MEQ/L (98-107); GLOMERULAR FILTRATION RATE 11 ML/MIN (>89); POTASSIUM 4.2 MEQ/L (3.5-5.1); SODIUM (NA) 137 MEQ/L (136-145)
[2016-05-25 23:29] LABS: ALKALINE PHOSPHATASE 111 U/L (45-117); ALT (GPT) 13 U/L (12-78); CREATINE KINASE 148 U/L (39-308); TOTAL BILIRUBIN ADULT 0.3 MG/DL (0.2-1.0)
[2016-05-25 23:42] LABS: CKMB 2.8 NG/ML (0.5-3.6)
[2016-05-26] VITALS (10 sets, daily range): BP systolic 140–167; BP diastolic 63–75; PULSE 79–88; RESP 16–20; TEMP 97.6–99.2; O2SAT 94–100
[2016-05-26] MEDS: CLINDAMYCIN 150 MG CAP PO SCH ×4 (00:10→17:43)
[2016-05-26] MEDS: RESP: ALBUTEROL 2.5 MG/IPRATROPIUM 0.5 MG NEB (SCH) NEB ×5 (00:33→19:00)
[2016-05-26] MEDS: ONDANSETRON HCL 4 MG/2 ML VIAL IVP PRN ×2 (03:26→09:08)
[2016-05-26] MEDS: CEPHALEXIN MONOHYDRATE 500 MG CAP PO SCH ×4 (03:26→21:33)
[2016-05-26] MEDS: ACETAMINOPHEN/HYDROcodone 325 MG/5 MG TAB PO PRN ×2 (03:30→14:07)
[2016-05-26] MEDS: MORPHINE SULFATE 4 MG/ML INJ IV PUSH PRN ×3 (05:19→17:44)
[2016-05-26] MEDS: SODIUM CHLORIDE 0.9% FLUSH 5 ML FLUSH FLUSH PRN (05:19)
[2016-05-26] MEDS: HEPARIN SODIUM - SQ 10,000 UNITS/ML VIAL SQ SCH ×3 (05:22→21:34)
[2016-05-26] MEDS: metroNIDAZOLE 500 MG TAB PO SCH ×3 (05:22→21:33)
[2016-05-26] MEDS: INSULIN ASPART SUPPLEMENTAL SCALE SQ SCH ×4 (05:40→21:00)
[2016-05-26 06:02] LABS: CREATINE KINASE 131 U/L (39-308)
[2016-05-26 06:14] LABS: CKMB 1.9 NG/ML (0.5-3.6)
--- NOTE | 2016-05-26 08:39 | HHI.FPPN ---
Subjective Remarks Darrius called on pt overnight for after going to bathroom pt feeling bad, with nausea and vomiting, SOB with O2 sat to 85% with BSG 183; held discharge yesterday to keep pt in hospital for hypoglycemia to 40's to 60's. ACS r/o negative at 11pm and 5am. Also, some nose bleeds last night, which resolved with O2 to bubbler. Left axilla, left lateral thigh bleeding hidradenitis. Pt sleeping w/o O2 (NC fell off). Patient currently denies any nausea or abdominal pain. Patient feels like his blood sugar is low. Nurse Accu-Chek showed blood sugar of 85. (Benja Rodriguez MD R1) Objective Vitals Vital Signs Date Time Temp Pulse Resp B/P Pulse Ox O2 Delivery O2 Flow Rate FiO2 05/26/16 04:00 Nasal Cannula 3.00 05/26/16 04:00 98.4 83 18 162/75 100 05/26/16 03:00 99.2 87 20 142/67 98 05/26/16 00:36 97 Nasal Cannula 3.00 05/26/16 00:00 98.4 83 18 144/63 96 05/26/16 00:00 Nasal Cannula 3.00 Humidified 05/25/16 23:08 82 20 143/68 97 05/25/16 22:45 99.1 83 20 154/70 100 05/25/16 22:25 99 3.00 05/25/16 22:09 98.3 87 125/65 100 05/25/16 22:00 Nasal Cannula 4.00 05/25/16 22:00 98.0 90 142/70 98 05/25/16 21:45 86 Room Air 05/25/16 20:19 90 05/25/16 20:00 Humidified 3.00 05/25/16 20:00 99.0 92 17 132/60 92 05/25/16 18:37 Nasal Cannula 3.00 Humidified 05/25/16 16:46 Nasal Cannula 3.00 Humidified 05/25/16 16:13 99.2 88 18 131/59 95 05/25/16 12:08 98.0 78 20 117/56 93 I/O 05/25/16 05/25/16 05/25/16 05/26/16 05/26/16 05/26/16 07:00 15:00 23:00 07:00 15:00 23:00 Intake Total 0 ml 240 ml 0 ml Output Total 4000 ml Balance 0 ml -3760 ml 0 ml Intake Oral 0 ml 240 ml 0 ml Hemodialysis 4000 ml # Voids 0 1 1 0 # Bowel Movements 0 0 0 (eBnja Rodriguez MD R1) Result Diagram: 05/25/16224405/25/162244 Objective Remarks O. CONSTITUTIONAL/GEN: normally nourished, appears chronically ill. EYES: conjunctiva normal, PERRLA, EOMI. sclerae are muddy ENT: Mouth and pharynx normal. Moist mucous membranes. NECK: thyroid midline, carotids symmetrical. CHEST: Right chest port LUNGS: clear A-P, respiratory effort is normal. Moving adequate air, coarse sounds bilaterally without wheezes. CARDIOVASCULAR: RRR with 2/6 EVERARDO. No significant edema. GI/ABD: soft without masses, without organomegaly. Bowel sounds present : no CVA tenderness NEURO: No focal deficits. SKIN: Chronic skin changes from his retinitis suppurativa and a lichen-like rash on all his extremities. Scarring in the axilla from surgeries on his history of hidradenitis suppurativa HEME/LYMPH: no bruising, petechia or significant adenopathy MSK: back is normal in appearance. Left arm fistula with palpable thrill. Left upper lateral thigh ulcer 1cm x 0.5 cm. bleeding left axilla. PSYCH/MENTAL STATUS: Alert and oriented x 3. (Benja Rodriguez MD R1) A/P Assessment and Plan Patient is a 45-year-old man with a history of diabetes, hypertension, hidradenitis, ESRD on HD Tuesdays, , Saturdays who missed his last hemodialysis appointment on Tuesday. Nephrology has been consult. He underwent hemodialysis on 05/24 and 05/25, getting 4 to 4-1/2 L off each time. Discharge Planning Anticipate discharge today after ACS rule out depending on patient's symptoms. ( Benja Rodriguez MD R1) Attending Attestation Patient seen and examined. Case reviewed and discussed with the resident team. Agree with plan of care as discussed with me and documented in the resident note. (Ciara Mejía MD) Problem List: (1) SOB (shortness of breath) Status: Acute Plan: See assessment and plan below; somewhat improved overnight. Anticipate much improvement with dialysis. (2) ESRD (end stage renal disease) on dialysis Status: Acute Plan: Patient presents with shortness of breath after missing his HD appointment on Tuesday. Consult nephrology Patient underwent hemodialysis on 05/24 and 05/25 Pt to likely resume his regular schedule Continue home medications: * Calcitriol 0.25 g by mouth daily * Renvela 800 mg (3) Abdominal pain Status: Acute Plan: Patient presents with abdominal pain; improved this morning. Tylenol 650 mg by mouth every 4 hours when necessary for pain, fever, headache [place] 325-5 mg 1 tab by mouth every 6 hours when necessary for pain 7-8, 2 tab by mouth every 6 hours when necessary for pain 9-10 Morphine 4 mg IV push every 3 hours when necessary for breakthrough pain (4) Nausea Status: Acute Plan: Patient presented with nausea and vomiting ; improved Zofran 4 mg IV push every 6 hours when necessary for nausea or vomiting (5) Hyperkalemia Status: Resolved Plan: Now resolved. Anticipate continued improvement with HD schedule. (6) Hypertensive urgency Status: Resolved Plan: Resolved. Blood pressure normal overnight. Hydralazine 10 mg IV every 6 hours when necessary for blood pressure over 170/ 100 Clonidine 0.1 mg by mouth every 6 hours when necessary for blood pressure over 170/100 Labetalol 10 mg IV every 6 hours when necessary for blood pressure over 170/100 Vasotec 1.25 mg IV every 6 hours when necessary for blood pressure over 170/100 Home blood pressure medications as below (7) Pulmonary edema Status: Resolved Plan: Patient presented with BNP of 226 and probable mild pulmonary edema on chest x-ray. Hemodialysis as above Home diuretics as below (8) Hypertension Status: Chronic Plan: Patient reportedly stable on home medications. Continue home medications: Amlodipine Carvedilol Hydralazine Spironolactone Losartan (9) Diabetes Status: Chronic Plan: Patient reports not taking any insulin for over a year. Low-dose sliding scale insulin protocol. (10) Hydradenitis Status: Chronic Plan: Patient reports taking antibiotics for hidradenitis and rash. Continue reported antibiotics. Metronidazole Cephalexin Clindamycin Rifampin Bactrim (11) BPH (benign prostatic hyperplasia) Status: Chronic Plan: Continue home medication: Finasteride 5 mg by mouth daily (12) Insomnia Status: Chronic Plan: Stable on home medication. Continue home medications: Doxepin 100 mg by mouth daily at bedtime (13) Nutrition, metabolism, and development symptoms Status: Chronic Plan: Fluids: Fluid restrict given likely volume overload Electrolytes: Monitor and correct when necessary Nutrition: Renal diet GI prophylaxis: Not indicated at this time (14) No contraindication to deep vein thrombosis (DVT) prophylaxis Status: Acute Plan: Heparin 5000 units subcutaneous every 8 hours (Benja Rodriguez MD R1) Problem Qualifiers (1) Pulmonary edema: Qualified Code: J81.0 - Acute pulmonary edema (2) Diabetes: Qualified Code: E11.8 - Type 2 diabetes mellitus with complication, without long-term current use of insulin Benja Rodriguez MD R1 May 26, 2016 08:39 Ciara Mejía MD May 26, 2016 12:55
[2016-05-26] MEDS: RIFAMPIN 150 MG CAP PO SCH ×2 (09:09→21:33)
[2016-05-26] MEDS: FINASTERIDE 5 MG TAB PO SCH (09:09)
[2016-05-26] MEDS: SPIRONOLACTONE 50 MG TAB PO SCH (09:09)
[2016-05-26] MEDS: SULFAMETHOXAZOLE-TRIMETHOPRIM DS 800-160 MG TAB PO SCH ×2 (09:09→21:32)
[2016-05-26] MEDS: amLODIPine BESYLATE 5 MG TAB PO SCH (09:09)
[2016-05-26] MEDS: CALCITRIOL 0.25 MCG CAP PO SCH (09:09)
[2016-05-26] MEDS: SEVELAMER CARBONATE 800 MG TAB PO SCH ×3 (09:09→17:43)
[2016-05-26] MEDS: hydrALAZINE HCL 50 MG TAB PO SCH ×3 (09:09→17:43)
[2016-05-26] MEDS: CARVEDILOL 12.5 MG TAB PO SCH ×2 (09:09→21:32)
[2016-05-26] MEDS: SODIUM CHLORIDE 0.9% FLUSH 5 ML FLUSH FLUSH SCH ×2 (09:10→21:32)
[2016-05-26] MEDS: diphenhydrAMINE HCL 25 MG CAP PO PRN (11:41)
[2016-05-26 12:27] LABS: CREATINE KINASE 121 U/L (39-308)
[2016-05-26 12:39] LABS: CKMB 2.1 NG/ML (0.5-3.6)
--- NOTE | 2016-05-26 16:00 | HHI.NPPN ---
Subjective General Problems: Anemia, Edema, Heart Disease, Hypertension Renal Failure: End Stage Renal Disease History of Present Illness 45-year-old male known to me from before with past medical history of hypertension, diabetes mellitus, end-stage renal disease on hemodialysis, history of hidradenitis, gastroparesis, came to the hospital with complaint of cough, abdominal pain, diarrhea and fever. I was called to see the patient because of management of dialysis. The patient has been on hemodialysis Tuesday, and Tuesday. Additional Remarks Patient is alert, has SOB, and now getting nebulizer treatment. Review of Systems General Constitutional: Fatigue Respiratory Lungs: SOB, Cough, Sputum, Wheeze Cardiovascular Cardiac: Edema, PAZ Objective Data Data 05/25/16 05/26/16 19:00 07:00 Intake Total 0 ml 240 ml Output Total 4000 ml Balance -4000 ml 240 ml Intake Oral 0 ml 240 ml Hemodialysis 4000 ml # Voids 1 1 # Bowel Movements 0 0 Vital Signs Date Time Temp Pulse Resp B/P Pulse Ox O2 Delivery O2 Flow Rate FiO2 05/26/16 15:16 100 Nasal Cannula 2.00 05/26/16 12:00 98.0 80 16 140/65 98 05/26/16 09:41 98 Nasal Cannula 2.00 05/26/16 08:00 97.6 79 16 147/74 98 05/26/16 08:00 Simple Mask 3.00 05/26/16 08:00 80 05/26/16 04:00 Nasal Cannula 3.00 05/26/16 04:00 98.4 83 18 162/75 100 05/26/16 03:00 99.2 87 20 142/67 98 05/26/16 00:36 97 Nasal Cannula 3.00 05/26/16 00:00 98.4 83 18 144/63 96 05/26/16 00:00 Nasal Cannula 3.00 Humidified 05/25/16 23:08 82 20 143/68 97 05/25/16 22:45 99.1 83 20 154/70 100 05/25/16 22:25 99 3.00 05/25/16 22:09 98.3 87 125/65 100 05/25/16 22:00 Nasal Cannula 4.00 05/25/16 22:00 98.0 90 142/70 98 05/25/16 21:45 86 Room Air 05/25/16 20:19 90 12/27/16 20:00 Humidified 3.00 05/25/16 20:00 99.0 92 17 132/60 92 05/25/16 18:37 Nasal Cannula 3.00 Humidified 05/25/16 16:46 Nasal Cannula 3.00 Humidified 05/25/16 16:13 99.2 88 18 131/59 95 -: 05/25/16 2245 05/25/16 2245 Physical Exam General Appearance: Well Nourished, No Acute Distress, Comfortable Eyes Eye Exam: Pupils Equal Throat Throat Exam: Oral Mucosa [place] & Moist Neck Neck Exam: Neck Supple Pulmonary Resp Exam: Crackles, Rhonchi, Sputum, Decreased Bases, Diminished Breath Sounds Cardiology CV Exam: Regular, Normal Sinus Rhythm Gastrointestinal/Abdomen GI Exam: Soft, Non-Tender, Bowel Sounds Present, Distended Extremeties Extremities Exam: Moderate Edema, Pitting Edema, Dependent Edema Neurologic Neuro Exam: Alert, Awake, Oriented Psychiatric Psych Exam: Appropriate Responses Assessment/Plan Assessment Summary: Anemia of CKD, Fluid/Volume Overload, Hypertension, End Stage Renal Disease Problem List: (1) Anemia due to chronic kidney disease (2) Benign hypertension (3) SOB (shortness of breath) (4) Hypertension (5) Diabetes (6) Hydradenitis (7) ESRD (end stage renal disease) on dialysis Plan HD done yesterday and 4 liters removed. Tolerated well, and the BP is stable. Still has SOB. CXR noted. HD in AM and remove fluid as tolerated. Problem Qualifiers (1) Diabetes: Qualified Code: E11.8 - Type 2 diabetes mellitus with complication, without long-term current use of insulin Teresita Carroll MD May 26, 2016 16:00
[2016-05-26] MEDS: PROCHLORPERAZINE INJ 10 MG/2 ML VIAL IVS PRN (17:44)
[2016-05-26] MEDS: DOXEPIN HCL 50 MG CAP PO SCH (21:33)
[2016-05-26] MEDS: LOSARTAN 50 MG TAB PO SCH (21:33)
--- NOTE | 2016-05-26 23:02 | EKG ---
Date Performed: 05/26/2016 Time Performed: 10:15:34 PTAGE: 45 years EKG: Sinus rhythm NORMAL ECG PREVIOUS TRACING : 05/26/2016 05.07 DOCTOR: Gordon Astudillo Interpretating Date/Time 05/26/2016 23:00:16
--- NOTE | 2016-05-26 23:09 | EKG ---
Date Performed: 05/26/2016 Time Performed: 05:07:08 PTAGE: 45 years EKG: Sinus rhythm Normal ECG PREVIOUS TRACING : 05/25/2016 22.21 DOCTOR: Gordon Astudillo Interpretating Date/Time 05/26/2016 23:05:29
--- NOTE | 2016-05-26 23:14 | EKG ---
Date Performed: 05/25/2016 Time Performed: 22:21:44 PTAGE: 45 years EKG: Sinus rhythm with PAC(s) Borderline ECG PREVIOUS TRACING : 05/23/2016 17.56 DOCTOR: Gordon Astudillo Interpretating Date/Time 05/26/2016 23:09:21
[2016-05-27] VITALS (8 sets, daily range): BP systolic 121–163; BP diastolic 56–75; PULSE 82–94; RESP 18–20; TEMP 98.1–99; O2SAT 93–99
[2016-05-27] MEDS: CLINDAMYCIN 150 MG CAP PO SCH ×5 (00:19→22:33)
[2016-05-27] MEDS: ACETAMINOPHEN/HYDROcodone 325 MG/5 MG TAB PO PRN ×2 (00:20→12:54)
[2016-05-27] MEDS: MORPHINE SULFATE 4 MG/ML INJ IV PUSH PRN ×3 (03:42→16:10)
[2016-05-27] MEDS: diphenhydrAMINE HCL 25 MG CAP PO PRN ×2 (03:43→12:53)
[2016-05-27] MEDS: CEPHALEXIN MONOHYDRATE 500 MG CAP PO SCH ×4 (03:43→20:32)
[2016-05-27] MEDS: metroNIDAZOLE 500 MG TAB PO SCH ×3 (05:55→20:32)
[2016-05-27] MEDS: HEPARIN SODIUM - SQ 10,000 UNITS/ML VIAL SQ SCH ×3 (05:55→20:33)
[2016-05-27] MEDS: INSULIN ASPART SUPPLEMENTAL SCALE SQ SCH ×4 (05:57→21:00)
[2016-05-27] MEDS: RESP: ALBUTEROL 2.5 MG/IPRATROPIUM 0.5 MG NEB (SCH) NEB ×4 (07:22→19:40)
[2016-05-27 07:40] LABS: HEMATOCRIT 29.8 % (39.0-51.0); MEAN CELL VOLUME 84.6 FL (80.0-100.0); MEAN CORPUSCULAR HEMOGLOBIN 27.8 PG (27.0-34.0); MEAN CORPUSCULAR HGB CONC 32.9 % (32.0-36.0); PLATELET COUNT 297 TH/MM3 (150-450); RED BLOOD COUNT 3.52 MIL/MM3 (4.50-5.90); RED CELL DISTRIBUTION WIDTH 19.9 % (11.6-17.2); REVIEW FLAG FINAL; WHITE BLOOD COUNT 6.6 TH/MM3 (4.0-11.0)
[2016-05-27] MEDS: SEVELAMER CARBONATE 800 MG TAB PO SCH ×3 (08:00→16:09)
[2016-05-27 08:06] LABS: BICARBONATE 27.2 MEQ/L (21.0-32.0); POTASSIUM 4.4 MEQ/L (3.5-5.1)
[2016-05-27] MEDS: PROCHLORPERAZINE INJ 10 MG/2 ML VIAL IVS PRN ×2 (08:21→16:10)
--- NOTE | 2016-05-27 08:21 | HHI.FPPN ---
Subjective Remarks Afebrile vital signs stable, and no acute events overnight, but patient continued to have dry heaving, abdominal pain, diarrhea. He said he didn't want to bother his nurse with these complaints. Patient reported 4-5 episodes of dry heaving with associated abdominal pain. He also reported 2 episodes of diarrhea. She reported that the Compazine started yesterday did not seem to help much. He also requested an increased frequency of his IV morphine. He also reports putting topical clindamycin on his hidradenitis ulcers. Per nurse report , he was satting in the high 80s with oxygen. (Benja Rodriguez MD R1) Objective Vitals Vital Signs Date Time Temp Pulse Resp B/P Pulse Ox O2 Delivery O2 Flow Rate FiO2 05/27/16 08:00 98.1 82 20 163/75 98 05/27/16 08:00 Nasal Cannula 2.00 05/27/16 07:22 98 Nasal Cannula 2.00 05/27/16 04:00 Nasal Cannula 2.00 05/27/16 00:00 98.1 86 18 124/58 95 05/27/16 00:00 Nasal Cannula 2.00 05/26/16 20:31 Nasal Cannula 2.00 05/26/16 20:00 98.0 88 18 167/75 97 05/26/16 20:00 86 05/26/16 16:00 98.2 83 16 152/67 94 05/26/16 15:16 100 Nasal Cannula 2.00 05/26/16 12:00 98.0 80 16 140/65 98 05/26/16 09:41 98 Nasal Cannula 2.00 I/O 05/26/16 05/26/16 05/26/16 05/27/16 05/27/16 05/27/16 07:00 15:00 23:00 07:00 15:00 23:00 Intake Total 0 ml 240 ml 240 ml Output Total 0 ml Balance 0 ml 240 ml 240 ml Intake Oral 0 ml 240 ml 240 ml Output Urine Total 0 ml # Voids 0 0 # Bowel Movements 0 0 (Benja Rodriguez MD R1) Result Diagram: 05/27/16 0723 05/27/16 0723 Objective Remarks O. CONSTITUTIONAL/GEN: normally nourished, appears chronically ill. EYES: conjunctiva normal, PERRLA, EOMI. sclerae are muddy ENT: Mouth and pharynx normal. Moist mucous membranes. NECK: thyroid midline, carotids symmetrical. CHEST: Right chest port LUNGS: clear A-P, respiratory effort is normal. Moving adequate air, coarse sounds bilaterally without wheezes. CARDIOVASCULAR: RRR with 2/6 EVERARDO. No significant edema. GI/ABD: soft without masses, without organomegaly. Bowel sounds present : no CVA tenderness NEURO: No focal deficits. SKIN: Chronic skin changes from his retinitis suppurativa and a lichen-like rash on all his extremities. Scarring in the axilla from surgeries on his history of hidradenitis suppurativa HEME/LYMPH: no bruising, petechia or significant adenopathy MSK: back is normal in appearance. Left arm fistula with palpable thrill. Left upper lateral thigh ulcer 1cm x 0.5 cm. left axilla with half centimeter by quarter centimeter ulcer. PSYCH/MENTAL STATUS: Alert and oriented x 3. (Benja Rodriguez MD R1) A/P Assessment and Plan Patient is a 45-year-old man with a history of diabetes, hypertension, hidradenitis, ESRD on HD Tuesdays, , Saturdays who missed his last hemodialysis appointment on Tuesday. Nephrology has been consult. He underwent hemodialysis on 05/24 and 05/25, getting 4 to 4-1/2 L off each time. Scheduled for hemodialysis today. Discharge Planning Anticipate discharge today or tomorrow after home oxygen walk test. Possibly tomorrow if he cannot participate in home O2 walk test today due to intractable nausea and vomiting. (Benja Rodriguez MD R1) Attending Attestation Patient seen and examined. Case reviewed and discussed with the resident team. Agree with plan of care as discussed with me and documented in the resident note. (Ciara Mejía MD) Problem List: (1) SOB (shortness of breath) Status: Acute Plan: See assessment and plan below; somewhat improved overnight. Anticipate much improvement with dialysis. Home oxygen walk test for nurse report of oxygen saturation in the high 80s with oxygen on via nasal cannula (2) ESRD (end stage renal disease) on dialysis Status: Acute Plan: Patient presents with shortness of breath after missing his HD appointment on Tuesday. Consult nephrology Patient underwent hemodialysis on 05/24 and 05/25 Pt to likely resume his regular schedule Continue home medications: * Calcitriol 0.25 g by mouth daily * Renvela 800 mg (3) Abdominal pain Status: Acute Plan: Patient presents with abdominal pain; improved this morning. Tylenol 650 mg by mouth every 4 hours when necessary for pain, fever, headache [place] 325-5 mg 1 tab by mouth every 6 hours when necessary for pain 7-8, 2 tab by mouth every 6 hours when necessary for pain 9-10 Morphine 2 mg IV push every 2 hours when necessary for breakthrough pain (4) Nausea Status: Acute Plan: Patient presented with nausea and vomiting ; improved Zofran 4 mg IV push every 6 hours when necessary for nausea or vomiting Compazine 5 mg IVS every 3 hours when necessary for nausea or vomiting Phenergan 12.5 mg by mouth every 8 hours when necessary for nausea or vomiting (5) Hypertensive urgency Status: Resolved Plan: Resolved. Blood pressure normal overnight. Hydralazine 10 mg IV every 6 hours when necessary for blood pressure over 170/ 100 Clonidine 0.1 mg by mouth every 6 hours when necessary for blood pressure over 170/100 Labetalol 10 mg IV every 6 hours when necessary for blood pressure over 170/100 Vasotec 1.25 mg IV every 6 hours when necessary for blood pressure over 170/100 Home blood pressure medications as below (6) Pulmonary edema Status: Resolved Plan: Patient presented with BNP of 226 and probable mild pulmonary edema on chest x-ray. Hemodialysis as above Home diuretics as below (7) Hypertension Status: Chronic Plan: Patient reportedly stable on home medications. Continue home medications: Amlodipine Carvedilol Hydralazine Spironolactone Losartan (8) Diabetes Status: Chronic Plan: Patient reports not taking any insulin for over a year. Low-dose sliding scale insulin protocol. (9) Hydradenitis Status: Chronic Plan: Patient reports taking antibiotics for hidradenitis and rash. Continue reported antibiotics. Metronidazole Cephalexin Clindamycin Rifampin Bactrim (10) BPH (benign prostatic hyperplasia) Status: Chronic Plan: Continue home medication: Finasteride 5 mg by mouth daily (11) Insomnia Status: Chronic Plan: Stable on home medication. Continue home medications: Doxepin 100 mg by mouth daily at bedtime (12) Nutrition, metabolism, and development symptoms Status: Chronic Plan: Fluids: Fluid restrict given likely volume overload Electrolytes: Monitor and correct when necessary Nutrition: Renal diet GI prophylaxis: Not indicated at this time (13) No contraindication to deep vein thrombosis (DVT) prophylaxis Status: Acute Plan: Heparin 5000 units subcutaneous every 8 hours (Benja Rodriguez MD R1) Problem Qualifiers (1) Pulmonary edema: Qualified Code: J81.0 - Acute pulmonary edema (2) Hypertension: Qualified Code: I10 - Essential hypertension (3) Diabetes: Qualified Code: E11.8 - Type 2 diabetes mellitus with complication, without long-term current use of insulin Benja Rodriguez MD R1 May 27, 2016 08:21 Ciara Mejía MD May 27, 2016 16:28
[2016-05-27] MEDS ORDERED: PROMETHAZINE HCL 25 MG TAB PO PRN (08:30)
[2016-05-27] MEDS ORDERED: PETROLATUM 30 GM TUBE TOPICAL PRN (08:30)
[2016-05-27] MEDS: hydrALAZINE HCL 50 MG TAB PO SCH ×3 (09:00→17:26)
[2016-05-27] MEDS: EPOETIN ALFA 10,000 UNITS/ML VIAL IV PRN (09:12)
[2016-05-27] MEDS: GELATIN 12 MM/7 MM FOAM TOP PRN (09:13)
--- NOTE | 2016-05-27 10:13 | HHI.NPPN ---
Subjective General Problems: Anemia, Edema, Heart Disease, Hypertension Renal Failure: End Stage Renal Disease History of Present Illness 45-year-old male known to me from before with past medical history of hypertension, diabetes mellitus, end-stage renal disease on hemodialysis, history of hidradenitis, gastroparesis, came to the hospital with complaint of cough, abdominal pain, diarrhea and fever. I was called to see the patient because of management of dialysis. The patient has been on hemodialysis Tuesday, and Tuesday. Additional Remarks Patient is alert, now on HD, alert, has mild SOB. Review of Systems General Constitutional: Fatigue Respiratory Lungs: SOB, Cough, Sputum, Wheeze Cardiovascular Cardiac: Edema, PAZ Objective Data Data 05/26/16 05/27/16 19:00 07:00 Intake Total 240 ml 240 ml Output Total 0 ml Balance 240 ml 240 ml Intake Oral 240 ml 240 ml Output Urine Total 0 ml # Voids 0 # Bowel Movements 0 Vital Signs Date Time Temp Pulse Resp B/P Pulse Ox O2 Delivery O2 Flow Rate FiO2 05/27/16 08:00 98.1 82 20 163/75 98 05/27/16 08:00 Nasal Cannula 2.00 05/27/16 07:22 98 Nasal Cannula 2.00 05/27/16 04:00 Nasal Cannula 2.00 05/27/16 00:00 98.1 86 18 124/58 95 05/27/16 00:00 Nasal Cannula 2.00 05/26/16 20:31 Nasal Cannula 2.00 05/26/16 20:00 98.0 88 18 167/75 97 05/26/16 20:00 86 05/26/16 16:00 98.2 83 16 152/67 94 05/26/16 15:16 100 Nasal Cannula 2.00 05/26/16 12:00 98.0 80 16 140/65 98 -: 05/27/16 0723 05/27/16 0723 Physical Exam General Appearance: Well Nourished, No Acute Distress, Comfortable Eyes Eye Exam: Pupils Equal Throat Throat Exam: Oral Mucosa [place] & Moist Neck Neck Exam: Neck Supple Pulmonary Resp Exam: Crackles, Rhonchi, Sputum, Decreased Bases, Diminished Breath Sounds Cardiology CV Exam: Regular, Normal Sinus Rhythm Gastrointestinal/Abdomen GI Exam: Soft, Non-Tender, Bowel Sounds Present, Distended Extremeties Extremities Exam: Moderate Edema, Pitting Edema, Dependent Edema Neurologic Neuro Exam: Alert, Awake, Oriented Psychiatric Psych Exam: Appropriate Responses Assessment/Plan Assessment Summary: Anemia of CKD, Fluid/Volume Overload, Hypertension, End Stage Renal Disease Problem List: (1) Anemia due to chronic kidney disease (2) Benign hypertension (3) SOB (shortness of breath) (4) Hypertension (5) Diabetes (6) Hydradenitis (7) ESRD (end stage renal disease) on dialysis Plan Still have SOB and off and on vomiting. Has mild epi. pain also. Add Protonix, on Zofran and Promethazine. Removing now more fluid with HD. On antibiotics for Hydradenitis. Problem Qualifiers (1) Hypertension: Qualified Code: I10 - Essential hypertension (2) Diabetes: Qualified Code: E11.8 - Type 2 diabetes mellitus with complication, without long-term current use of insulin Teresita Carroll MD May 27, 2016 10:13
[2016-05-27] MEDS: SPIRONOLACTONE 50 MG TAB PO SCH (12:53)
[2016-05-27] MEDS: FINASTERIDE 5 MG TAB PO SCH (12:53)
[2016-05-27] MEDS: CALCITRIOL 0.25 MCG CAP PO SCH (12:53)
[2016-05-27] MEDS: PANTOPRAZOLE SOD 40 MG DELAYED RELEASE TAB PO SCH (12:53)
[2016-05-27] MEDS: SULFAMETHOXAZOLE-TRIMETHOPRIM DS 800-160 MG TAB PO SCH ×2 (12:53→20:32)
[2016-05-27] MEDS: RIFAMPIN 150 MG CAP PO SCH ×2 (12:53→20:32)
[2016-05-27] MEDS: amLODIPine BESYLATE 5 MG TAB PO SCH (12:54)
[2016-05-27] MEDS: CARVEDILOL 12.5 MG TAB PO SCH ×2 (12:54→20:32)
[2016-05-27] MEDS: SODIUM CHLORIDE 0.9% FLUSH 5 ML FLUSH FLUSH SCH ×2 (12:55→20:33)
[2016-05-27] MEDS: ONDANSETRON HCL 4 MG/2 ML VIAL IVP PRN (18:46)
[2016-05-27] MEDS: LOSARTAN 50 MG TAB PO SCH (20:32)
[2016-05-27] MEDS: DOXEPIN HCL 50 MG CAP PO SCH (20:32)
[2016-05-28] VITALS (10 sets, daily range): BP systolic 126–169; BP diastolic 60–79; PULSE 79–104; RESP 16–18; TEMP 97.6–98.5; O2SAT 94–99
[2016-05-28] MEDS: CEPHALEXIN MONOHYDRATE 500 MG CAP PO SCH ×2 (03:11→07:57)
[2016-05-28] MEDS: ACETAMINOPHEN/HYDROcodone 325 MG/5 MG TAB PO PRN (03:59)
[2016-05-28] MEDS: HEPARIN SODIUM - SQ 10,000 UNITS/ML VIAL SQ SCH ×3 (05:10→22:33)
[2016-05-28] MEDS: CLINDAMYCIN 150 MG CAP PO SCH (05:10)
[2016-05-28] MEDS: metroNIDAZOLE 500 MG TAB PO SCH (05:10)
[2016-05-28] MEDS: SODIUM CHLORIDE 0.9% FLUSH 5 ML FLUSH FLUSH PRN (05:11)
[2016-05-28] MEDS: INSULIN ASPART SUPPLEMENTAL SCALE SQ SCH ×4 (05:29→21:00)
[2016-05-28 05:38] LABS: AUTOMATED NEUTROPHIL # 4.8 TH/MM3 (1.8-7.7); BASOPHIL % 0.5 % (0.0-2.0); EOSINOPHIL # 0.4 TH/MM3 (0-0.4); EOSINOPHIL % 5.9 % (0.0-4.0); HEMATOCRIT 30.4 % (39.0-51.0); HEMO FLAGS DIFF FINAL; LYMPH % 12.7 % (9.0-44.0); LYMPHOCYTE # 0.9 TH/MM3 (1.0-4.8); MEAN CELL VOLUME 83.3 FL (80.0-100.0); MEAN CORPUSCULAR HEMOGLOBIN 26.9 PG (27.0-34.0); MEAN CORPUSCULAR HGB CONC 32.3 % (32.0-36.0); NEUT % 65.9 % (16.0-70.0); PLATELET COUNT 377 TH/MM3 (150-450); RED BLOOD COUNT 3.65 MIL/MM3 (4.50-5.90); RED CELL DISTRIBUTION WIDTH 19.9 % (11.6-17.2); WHITE BLOOD COUNT 7.3 TH/MM3 (4.0-11.0)
[2016-05-28 06:02] LABS: BICARBONATE 30.6 MEQ/L (21.0-32.0); POTASSIUM 4.5 MEQ/L (3.5-5.1)
[2016-05-28] MEDS: MORPHINE SULFATE 4 MG/ML INJ IV PUSH PRN (06:25)
[2016-05-28] MEDS: diphenhydrAMINE HCL 25 MG CAP PO PRN (06:26)
[2016-05-28] MEDS: RESP: ALBUTEROL 2.5 MG/IPRATROPIUM 0.5 MG NEB (SCH) NEB ×4 (07:49→20:48)
[2016-05-28] MEDS: SODIUM CHLORIDE 0.9% FLUSH 5 ML FLUSH FLUSH SCH ×2 (07:56→21:00)
[2016-05-28] MEDS: amLODIPine BESYLATE 5 MG TAB PO SCH (07:57)
[2016-05-28] MEDS: FINASTERIDE 5 MG TAB PO SCH (07:57)
[2016-05-28] MEDS: CARVEDILOL 12.5 MG TAB PO SCH ×2 (07:57→22:34)
[2016-05-28] MEDS: SPIRONOLACTONE 50 MG TAB PO SCH (07:57)
[2016-05-28] MEDS: SULFAMETHOXAZOLE-TRIMETHOPRIM DS 800-160 MG TAB PO SCH (07:57)
[2016-05-28] MEDS: CALCITRIOL 0.25 MCG CAP PO SCH (07:57)
[2016-05-28] MEDS: hydrALAZINE HCL 50 MG TAB PO SCH ×3 (07:57→16:53)
[2016-05-28] MEDS: PANTOPRAZOLE SOD 40 MG DELAYED RELEASE TAB PO SCH (07:57)
[2016-05-28] MEDS: SEVELAMER CARBONATE 800 MG TAB PO SCH ×3 (07:57→16:52)
[2016-05-28] MEDS: RIFAMPIN 150 MG CAP PO SCH (07:58)
--- NOTE | 2016-05-28 11:30 | HHI.FPPN ---
Subjective Remarks No acute events overnight. Afebrile. Hypertensive to 169/75. Patient continues to complain of nausea and dry heaves/emesis. He states that he threw up his lunch and dinner yesterday. He is actively heaving during his exam today. (Shayy Vital MD R3) Objective Vitals Vital Signs Date Time Temp Pulse Resp B/P Pulse Ox O2 Delivery O2 Flow Rate FiO2 05/28/16 08:26 Nasal Cannula 3.00 05/28/16 08:00 98.4 97 16 169/75 96 05/28/16 07:50 97 Nasal Cannula 3.00 05/28/16 04:00 98.3 84 18 156/71 98 05/28/16 00:00 98.5 85 16 126/60 97 05/27/16 20:00 Nasal Cannula 3.00 Humidified 05/27/16 20:00 98.8 84 18 134/63 99 05/27/16 20:00 83 05/27/16 19:41 93 Nasal Cannula 3.00 05/27/16 16:00 99.0 89 18 121/56 97 05/27/16 12:49 98 Nasal Cannula 2.00 05/27/16 12:00 98.1 94 18 135/60 98 I/O 05/27/16 05/27/16 05/27/16 05/28/16 05/28/16 05/28/16 07:00 15:00 23:00 07:00 15:00 23:00 Intake Total 480 ml 240 ml 480 ml Output Total 3100 ml Balance -2620 ml 240 ml 480 ml Intake Oral 480 ml 240 ml 480 ml Output Urine Total 100 ml Hemodialysis 3000 ml # Voids 0 2 # Bowel Movements 1 0 2 (Shayy Vital MD R3) Result Diagram: 05/28/16 0512 05/28/16 0512 Objective Remarks O. CONSTITUTIONAL/GEN: normally nourished, appears chronically ill. EYES: conjunctiva normal, PERRLA, EOMI. sclerae are muddy ENT: Mouth and pharynx normal. Moist mucous membranes. NECK: thyroid midline, carotids symmetrical. CHEST: Right chest port LUNGS: clear A-P, respiratory effort is normal. Moving adequate air, coarse sounds bilaterally without wheezes. CARDIOVASCULAR: RRR with 2/6 EVERARDO. No significant edema. GI/ABD: soft without masses, without organomegaly. Bowel sounds present : no CVA tenderness NEURO: No focal deficits. SKIN: Chronic skin changes from his retinitis suppurativa and a lichen-like rash on all his extremities. Scarring in the axilla from surgeries on his history of hidradenitis suppurativa HEME/LYMPH: no bruising, petechia or significant adenopathy MSK: back is normal in appearance. Left arm fistula with palpable thrill. Left upper lateral thigh ulcer 1cm x 0.5 cm. left axilla with half centimeter by quarter centimeter ulcer. PSYCH/MENTAL STATUS: Alert and oriented x 3. (Shayy Vital MD R3) A/P Assessment and Plan Patient is a 45-year-old man with a history of diabetes, hypertension, hidradenitis, ESRD on HD Tuesdays, , Saturdays who missed his last hemodialysis appointment on Tuesday. Discharge Planning Discharge once gastric symptoms resolved. (Shayy Vital MD R3) Attending Attestation Patient seen and examined. Case reviewed and discussed with the resident team. Agree with plan of care as discussed with me and documented in the resident note. (Ciara Mejía MD) Problem List: (1) SOB (shortness of breath) Status: Acute Plan: Home oxygen walk test for nurse report of oxygen saturation in the high 80s with oxygen on via nasal cannula (2) ESRD (end stage renal disease) on dialysis Status: Chronic Plan: Patient presents with shortness of breath after missing his HD appointment on Tuesday. Consult nephrology Continue dialysis Tuesday, , Tuesday Continue home medications: * Calcitriol 0.25 g by mouth daily * Renvela 800 mg (3) Abdominal pain Status: Acute Plan: Patient continues to have nausea, dry heaves/emesis Discontinue all opiate medications as this may be contributing to his abdominal pain Discontinue Keflex, clindamycin, Flagyl, rifampin, Bactrim as these may be contributing to patient's gastric symptoms and he does not currently have an infection. (4) Nausea Status: Acute Plan: Patient presented with nausea and vomiting ; improved Zofran 4 mg IV push every 6 hours when necessary for nausea or vomiting Compazine 5 mg IVS every 3 hours when necessary for nausea or vomiting Phenergan 12.5 mg by mouth every 8 hours when necessary for nausea or vomiting (5) Hypertensive urgency Status: Resolved Plan: Resolved. Blood pressure normal overnight. Hydralazine 10 mg IV every 6 hours when necessary for blood pressure over 170/ 100 Clonidine 0.1 mg by mouth every 6 hours when necessary for blood pressure over 170/100 Labetalol 10 mg IV every 6 hours when necessary for blood pressure over 170/100 Vasotec 1.25 mg IV every 6 hours when necessary for blood pressure over 170/100 Home blood pressure medications as below (6) Pulmonary edema Status: Resolved Plan: Patient presented with BNP of 226 and probable mild pulmonary edema on chest x-ray. Hemodialysis as above Home diuretics as below (7) Hypertension Status: Chronic Plan: Patient reportedly stable on home medications. Continue home medications: Amlodipine Carvedilol Hydralazine Spironolactone Losartan (8) Diabetes Status: Chronic Plan: Patient reports not taking any insulin for over a year. Low-dose sliding scale insulin protocol. (9) Hydradenitis Status: Chronic Plan: Patient reports taking antibiotics for hidradenitis and rash. Antibiotics discontinued as documented above. (10) BPH (benign prostatic hyperplasia) Status: Chronic Plan: Continue home medication: Finasteride 5 mg by mouth daily (11) Insomnia Status: Chronic Plan: Stable on home medication. Continue home medications: Doxepin 100 mg by mouth daily at bedtime (12) Nutrition, metabolism, and development symptoms Status: Chronic Plan: Fluids: Fluid restrict given likely volume overload Electrolytes: Monitor and correct when necessary Nutrition: Renal diet GI prophylaxis: Protonix (13) No contraindication to deep vein thrombosis (DVT) prophylaxis Status: Acute Plan: Heparin 5000 units subcutaneous every 8 hours (Shayy Vital MD R3) Problem Qualifiers (1) Pulmonary edema: Qualified Code: J81.0 - Acute pulmonary edema (2) Hypertension: Qualified Code: I10 - Essential hypertension (3) Diabetes: Qualified Code: E11.8 - Type 2 diabetes mellitus with complication, without long-term current use of insulin Shayy Vital MD R3 May 28, 2016 11:29 Ciara Mejía MD May 28, 2016 12:14
[2016-05-28] MEDS: LACTOBACILLUS ACIDOPHILUS 1 GM PACKET PO SCH ×3 (12:18→22:34)
[2016-05-28] MEDS: ONDANSETRON HCL 4 MG/2 ML VIAL IVP PRN (16:52)
--- NOTE | 2016-05-28 17:03 | HHI.NPPN ---
Subjective General Problems: Anemia, Edema, Heart Disease, Hypertension Renal Failure: End Stage Renal Disease History of Present Illness 45-year-old male known to me from before with past medical history of hypertension, diabetes mellitus, end-stage renal disease on hemodialysis, history of hidradenitis, gastroparesis, came to the hospital with complaint of cough, abdominal pain, diarrhea and fever. I was called to see the patient because of management of dialysis. The patient has been on hemodialysis Tuesday, and Tuesday. Additional Remarks Patient is alert, still having vomiting off and on. Review of Systems General Constitutional: Fatigue Respiratory Lungs: SOB, Cough, Sputum, Wheeze Cardiovascular Cardiac: Edema, PAZ Objective Data Data 05/27/16 05/28/16 19:00 07:00 Intake Total 480 ml 720 ml Output Total 3100 ml Balance -2620 ml 720 ml Intake Oral 480 ml 720 ml Output Urine Total 100 ml Hemodialysis 3000 ml # Voids 2 # Bowel Movements 1 2 Vital Signs Date Time Temp Pulse Resp B/P Pulse Ox O2 Delivery O2 Flow Rate FiO2 05/28/16 16:00 98.5 96 16 169/79 94 05/28/16 12:00 97.6 79 16 157/72 99 05/28/16 08:26 Nasal Cannula 3.00 05/28/16 08:00 98.4 97 16 169/75 96 05/28/16 07:50 97 Nasal Cannula 3.00 05/28/16 04:00 98.3 84 18 156/71 98 05/28/16 00:00 98.5 85 16 126/60 97 05/27/16 20:00 Nasal Cannula 3.00 Humidified 05/27/16 20:00 98.8 84 18 134/63 99 05/27/16 20:00 83 05/27/16 19:41 93 Nasal Cannula 3.00 -: 05/28/16 0512 05/28/16 0512 Physical Exam General Appearance: Well Nourished, No Acute Distress, Comfortable Eyes Eye Exam: Pupils Equal Throat Throat Exam: Oral Mucosa [place] & Moist Neck Neck Exam: Neck Supple Pulmonary Resp Exam: Crackles, Rhonchi, Sputum, Decreased Bases, Diminished Breath Sounds Cardiology CV Exam: Regular, Normal Sinus Rhythm Gastrointestinal/Abdomen GI Exam: Soft, Non-Tender, Bowel Sounds Present, Distended Extremeties Extremities Exam: Moderate Edema, Pitting Edema, Dependent Edema Neurologic Neuro Exam: Alert, Awake, Oriented Psychiatric Psych Exam: Appropriate Responses Assessment/Plan Assessment Summary: Anemia of CKD, Fluid/Volume Overload, Hypertension, End Stage Renal Disease Problem List: (1) Anemia due to chronic kidney disease (2) Benign hypertension (3) SOB (shortness of breath) (4) Hypertension (5) Diabetes (6) Hydradenitis (7) ESRD (end stage renal disease) on dialysis Plan Still have SOB and off and on vomiting. Has mild epi. pain also. On Protonix, on Zofran and Promethazine. On antibiotics for Hydradenitis. Consult GI for continues vomiting and loose BM. Problem Qualifiers (1) Hypertension: Qualified Code: I10 - Essential hypertension (2) Diabetes: Qualified Code: E11.8 - Type 2 diabetes mellitus with complication, without long-term current use of insulin Teresita Carroll MD May 28, 2016 17:03
[2016-05-28] MEDS: LOSARTAN 50 MG TAB PO SCH (22:34)
[2016-05-28] MEDS: DOXEPIN HCL 50 MG CAP PO SCH (22:34)
[2016-05-29] VITALS (10 sets, daily range): BP systolic 130–167; BP diastolic 60–77; PULSE 91–107; RESP 16–18; TEMP 97.9–99.3; O2SAT 95–100
[2016-05-29] MEDS: HEPARIN SODIUM - SQ 10,000 UNITS/ML VIAL SQ SCH ×3 (06:16→21:55)
[2016-05-29] MEDS: INSULIN ASPART SUPPLEMENTAL SCALE SQ SCH ×4 (06:19→21:00)
[2016-05-29 06:42] LABS: AUTOMATED NEUTROPHIL # 3.8 TH/MM3 (1.8-7.7); BASOPHIL # 0.1 TH/MM3 (0-0.2); EOSINOPHIL # 0.6 TH/MM3 (0-0.4); EOSINOPHIL % 8.5 % (0.0-4.0); HEMATOCRIT 29.5 % (39.0-51.0); HEMO FLAGS DIFF FINAL; LYMPH % 15.4 % (9.0-44.0); MEAN CELL VOLUME 83.7 FL (80.0-100.0); MEAN CORPUSCULAR HEMOGLOBIN 27.2 PG (27.0-34.0); MEAN CORPUSCULAR HGB CONC 32.5 % (32.0-36.0); NEUT % 59.1 % (16.0-70.0); PLATELET COUNT 381 TH/MM3 (150-450); RED BLOOD COUNT 3.52 MIL/MM3 (4.50-5.90); RED CELL DISTRIBUTION WIDTH 19.9 % (11.6-17.2); WHITE BLOOD COUNT 6.5 TH/MM3 (4.0-11.0)
[2016-05-29 07:27] LABS: BICARBONATE 30.8 MEQ/L (21.0-32.0); POTASSIUM 4.4 MEQ/L (3.5-5.1)
[2016-05-29] MEDS: SEVELAMER CARBONATE 800 MG TAB PO SCH ×3 (08:00→17:00)
--- NOTE | 2016-05-29 08:10 | HHI.FPPN ---
Subjective Remarks Patient states he feels about the same as yesterday. His abdominal pain is about the same. He does note he is having a little less vomiting. He feels a little less short of breath. No chest pain, lower extremity edema, headache. He is going for hemodialysis today. (Maurice Mejía MD R2) Objective Vitals Vital Signs Date Time Temp Pulse Resp B/P Pulse Ox O2 Delivery O2 Flow Rate FiO2 05/29/16 04:00 98.0 92 16 145/72 97 05/29/16 00:00 98.4 96 18 167/77 98 05/28/16 20:49 97 Nasal Cannula 3.00 05/28/16 20:40 Nasal Cannula 2.00 05/28/16 20:08 104 05/28/16 20:00 98.3 104 18 157/75 99 05/28/16 16:00 98.5 96 16 169/79 94 05/28/16 12:00 97.6 79 16 157/72 99 05/28/16 08:26 Nasal Cannula 3.00 05/28/16 08:08 93 I/O 05/28/16 05/28/16 05/28/16 05/29/16 05/29/16 05/29/16 07:00 15:00 23:00 07:00 15:00 23:00 Intake Total 480 ml 480 ml 240 ml 240 ml Output Total 0 ml Balance 480 ml 480 ml 240 ml 240 ml Intake Oral 480 ml 480 ml 240 ml 240 ml Output Urine Total 0 ml # Voids 2 2 1 # Bowel Movements 2 2 1 0 (Maurice Mejía MD R2) Result Diagram: 05/29/1661805/29/1619 Objective Remarks O. CONSTITUTIONAL/GEN: normally nourished, appears chronically ill. EYES: conjunctiva normal, PERRLA, EOMI. sclerae are muddy ENT: Mouth and pharynx normal. Moist mucous membranes. NECK: thyroid midline, carotids symmetrical. CHEST: Right chest port LUNGS: clear A-P, respiratory effort is normal. Moving adequate air, coarse sounds bilaterally without wheezes. CARDIOVASCULAR: RRR with 2/6 EVERARDO. No significant edema. GI/ABD: soft without masses, without organomegaly. Bowel sounds present : no CVA tenderness NEURO: No focal deficits. SKIN: Chronic skin changes from his retinitis suppurativa and a lichen-like rash on all his extremities. Scarring in the axilla from surgeries on his history of hidradenitis suppurativa HEME/LYMPH: no bruising, petechia or significant adenopathy MSK: back is normal in appearance. Left arm fistula with palpable thrill. Left upper lateral thigh ulcer 1cm x 0.5 cm. left axilla with half centimeter by quarter centimeter ulcer. PSYCH/MENTAL STATUS: Alert and oriented x 3. (Maurice Mejía MD R2) A/P Assessment and Plan Patient is a 45-year-old man with a history of diabetes, hypertension, hidradenitis, ESRD on HD Tuesdays, , Saturdays who missed his last hemodialysis appointment on Tuesday. Discharge Planning Discharge once gastric symptoms resolved. (Maurice Mejía MD R2) Assessment and Plan Anticipate that patient will feel improved after dialysis today, since we stopped 5 antibiotics yesterday. Attending Attestation Patient seen and examined. Case reviewed and discussed with the resident team. Agree with plan of care as discussed with me and documented in the resident note. (Ciara Mejía MD) Problem List: (1) SOB (shortness of breath) Status: Acute Plan: Home oxygen walk test for nurse report of oxygen saturation in the high 80s with oxygen on via nasal cannula (2) ESRD (end stage renal disease) on dialysis Status: Chronic Plan: Patient presents with shortness of breath after missing his HD appointment on Tuesday. Consult nephrology Continue dialysis Tuesday, , Tuesday Continue home medications: * Calcitriol 0.25 g by mouth daily * Renvela 800 mg (3) Abdominal pain Status: Acute Plan: Patient continues to have nausea, dry heaves/emesis Discontinue all opiate medications as this may be contributing to his abdominal pain Discontinue Keflex, clindamycin, Flagyl, rifampin, Bactrim as these may be contributing to patient's gastric symptoms and he does not currently have an infection. (4) Nausea Status: Acute Plan: Patient presented with nausea and vomiting ; improving Zofran 4 mg IV push every 6 hours when necessary for nausea or vomiting Compazine 5 mg IVS every 3 hours when necessary for nausea or vomiting Phenergan 12.5 mg by mouth every 8 hours when necessary for nausea or vomiting (5) Hypertensive urgency Status: Resolved Plan: Resolved. Hydralazine 10 mg IV every 6 hours when necessary for blood pressure over 170/ 100 Clonidine 0.1 mg by mouth every 6 hours when necessary for blood pressure over 170/100 Labetalol 10 mg IV every 6 hours when necessary for blood pressure over 170/100 Vasotec 1.25 mg IV every 6 hours when necessary for blood pressure over 170/100 Home blood pressure medications as below (6) Pulmonary edema Status: Resolved Plan: Patient presented with BNP of 226 and probable mild pulmonary edema on chest x-ray. Hemodialysis as above Home diuretics as below (7) Hypertension Status: Chronic Plan: Patient reportedly stable on home medications. Continue home medications: Amlodipine Carvedilol Hydralazine Spironolactone Losartan (8) Diabetes Status: Chronic Plan: Patient reports not taking any insulin for over a year. Low-dose sliding scale insulin protocol. (9) Hydradenitis Status: Chronic Plan: Patient reports taking antibiotics for hidradenitis and rash. Antibiotics discontinued as documented above. (10) BPH (benign prostatic hyperplasia) Status: Chronic Plan: Continue home medication: Finasteride 5 mg by mouth daily (11) Insomnia Status: Chronic Plan: Stable on home medication. Continue home medications: Doxepin 100 mg by mouth daily at bedtime (12) Nutrition, metabolism, and development symptoms Status: Chronic Plan: Fluids: Fluid restrict given likely volume overload Electrolytes: Monitor and correct when necessary Nutrition: Renal diet GI prophylaxis: Protonix (13) No contraindication to deep vein thrombosis (DVT) prophylaxis Status: Acute Plan: Heparin 5000 units subcutaneous every 8 hours (Maurice Mejía MD R2) Problem Qualifiers (1) Pulmonary edema: Qualified Code: J81.0 - Acute pulmonary edema (2) Hypertension: Qualified Code: I10 - Essential hypertension (3) Diabetes: Qualified Code: E11.8 - Type 2 diabetes mellitus with complication, without long-term current use of insulin Maurice Mejía MD R2 May 29, 2016 08:10 Ciara Mejía MD May 29, 2016 11:40
[2016-05-29] MEDS: RESP: ALBUTEROL 2.5 MG/IPRATROPIUM 0.5 MG NEB (SCH) NEB ×4 (08:14→19:05)
[2016-05-29] MEDS: LACTOBACILLUS ACIDOPHILUS 1 GM PACKET PO SCH ×4 (08:25→21:00)
[2016-05-29] MEDS: amLODIPine BESYLATE 5 MG TAB PO SCH (08:25)
[2016-05-29] MEDS: PANTOPRAZOLE SOD 40 MG DELAYED RELEASE TAB PO SCH (08:25)
[2016-05-29] MEDS: CALCITRIOL 0.25 MCG CAP PO SCH (08:25)
[2016-05-29] MEDS: SPIRONOLACTONE 50 MG TAB PO SCH (08:25)
[2016-05-29] MEDS: hydrALAZINE HCL 50 MG TAB PO SCH ×3 (08:25→18:29)
[2016-05-29] MEDS: CARVEDILOL 12.5 MG TAB PO SCH ×2 (08:25→21:00)
[2016-05-29] MEDS: FINASTERIDE 5 MG TAB PO SCH (08:25)
[2016-05-29] MEDS: ONDANSETRON HCL 4 MG/2 ML VIAL IVP PRN ×3 (08:33→21:50)
[2016-05-29] MEDS: SODIUM CHLOR 0.9% 1000 ML INJ 1,000 ML IV PRN (10:07)
[2016-05-29] MEDS: EPOETIN ALFA 10,000 UNITS/ML VIAL IV PRN (10:08)
--- NOTE | 2016-05-29 11:40 | HHI.NPPN ---
Subjective General Problems: Anemia, Edema, Heart Disease, Hypertension Renal Failure: End Stage Renal Disease History of Present Illness 45-year-old male known to me from before with past medical history of hypertension, diabetes mellitus, end-stage renal disease on hemodialysis, history of hidradenitis, gastroparesis, came to the hospital with complaint of cough, abdominal pain, diarrhea and fever. I was called to see the patient because of management of dialysis. The patient has been on hemodialysis Tuesday, and Tuesday. Additional Remarks Patient is alert, now on HD, alert, has nausea Review of Systems General Constitutional: Fatigue Respiratory Lungs: SOB, Cough, Sputum, Wheeze Cardiovascular Cardiac: Edema, PAZ Objective Data Data 05/28/16 05/29/16 19:00 07:00 Intake Total 480 ml 480 ml Output Total 0 ml Balance 480 ml 480 ml Intake Oral 480 ml 480 ml Output Urine Total 0 ml # Voids 2 1 # Bowel Movements 2 1 Vital Signs Date Time Temp Pulse Resp B/P Pulse Ox O2 Delivery O2 Flow Rate FiO2 05/29/16 08:17 98 Nasal Cannula 3.00 05/29/16 08:00 Nasal Cannula 2.00 05/29/16 08:00 97.9 93 18 148/66 95 05/29/16 07:38 91 05/29/16 04:00 98.0 92 16 145/72 97 05/29/16 00:00 98.4 96 18 167/77 98 05/28/16 20:49 97 Nasal Cannula 3.00 05/28/16 20:40 Nasal Cannula 2.00 05/28/16 20:08 104 05/28/16 20:00 98.3 104 18 157/75 99 05/28/16 16:00 98.5 96 16 169/79 94 05/28/16 12:00 97.6 79 16 157/72 99 -: 05/29/16 0619 05/29/16 0619 Physical Exam General Appearance: Well Nourished, No Acute Distress, Comfortable Eyes Eye Exam: Pupils Equal Throat Throat Exam: Oral Mucosa [place] & Moist Neck Neck Exam: Neck Supple Pulmonary Resp Exam: Crackles, Rhonchi, Sputum, Decreased Bases, Diminished Breath Sounds Cardiology CV Exam: Regular, Normal Sinus Rhythm Gastrointestinal/Abdomen GI Exam: Soft, Non-Tender, Bowel Sounds Present, Distended Extremeties Extremities Exam: Moderate Edema, Pitting Edema, Dependent Edema Neurologic Neuro Exam: Alert, Awake, Oriented Psychiatric Psych Exam: Appropriate Responses Assessment/Plan Assessment Summary: Anemia of CKD, Fluid/Volume Overload, Hypertension, End Stage Renal Disease Problem List: (1) Anemia due to chronic kidney disease (2) Benign hypertension (3) SOB (shortness of breath) (4) Hypertension (5) Diabetes (6) Hydradenitis (7) ESRD (end stage renal disease) on dialysis Plan had nausea, vomiting seen during hemodialysis 2 L off [address] [place] getting treated for nausea with Protonix, on Zofran and Promethazine. On antibiotics for Hydradenitis. Problem Qualifiers (1) Hypertension: Qualified Code: I10 - Essential hypertension (2) Diabetes: Qualified Code: E11.8 - Type 2 diabetes mellitus with complication, without long-term current use of insulin Andi Roth MD May 29, 2016 11:39
--- NOTE | 2016-05-29 13:27 | PD.CONS ---
HPI History of Present Illness This is a 45 year old male who has a known Hx of diabetes, gastroparesis, anemia secondary to ESRD, he is on dialysis. Presented to the ED with C/O shortness of breath, cough that was productive, abdominal pain and diarrhea, N/ V that started one week ago.He is on antibiotics of Clindamycin and Keflex for his Hydradenitis. He sates he was have about 10 liquid stools daily. Diarrhea has improved some and he is having dry heaves now. He has had a colonoscopy in the past but does not remember the results or how long ago the procedure was. ( Virgen Russell) PFSH Past Medical History hydradenitis TIA as teenager seizures from to 11-13 yo 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 left arm fistula; right chest port for IV blood draws because he is a tough stick. Tenckhoff tube in abdomen for PD is closed. His fistula occasionally needs ballooning Past Surgical History Past Surgical History For his hydradenitis, he has had too many surgeries to count, he estimates >100. left arm fistula; right chest port for IV blood draws because he is a tough stick. Tenckhoff tube in abdomen for PD is closed. His fistula occasionally needs ballooning (Virgen Russell) Coded Allergies: Contrast Media (Unverified Allergy, Severe, nausea/vomiting, 04/20/16) causes n/v HAD TEST TODAY 11/15/11 TOOK BENADRYL AND DID OK. Reglan (Verified Allergy, Severe, ANXIETY, 04/20/16) Seafood (Verified Allergy, Severe, SWELLING-CANT BREATH-HIVES, 04/20/16) Medications Reported Meds & Active Scripts Active Lortab (Hydrocodone-Acetaminophen) 5-325 Mg Tab 1-2 Tab PO Q6H PRN Keflex (Cephalexin) 500 Mg Cap 500 Mg PO Q6H Bactrim DS (Sulfamethoxazole-Trimethoprim) 800-160 Mg Tab 1 Tab PO BID Reported Nephro-Adan Rx (Vitamin B Cmplx/Vit C/Folic AC) 1 Tab 1 Tab PO Novolin 70-30 Inj (Insulin Human Isoph/Insulin Regular) 1,000 Unit/10 Ml Vial 1 Units SQ Losartan (Losartan Potassium) 100 Mg Tab 100 Mg PO HS Hydralazine (Hydralazine HCl) 50 Mg Tab 50 Mg PO TID Take with a meal Finasteride 5 Mg Tab 5 Mg PO DAILY Do not crush. Doxepin (Doxepin HCl) 100 Mg Cap 100 Mg PO HS Carvedilol 12.5 Mg Tab 12.5 Mg PO BID Calcium Acetate (Calcium Acetate (Phosphate Bin) 667 Mg Cap Social History , does not use alcohol or smoke tobacco (Virgen Russell) Review of Systems Respiratory: COMPLAINS OF: Cough, Sputum production, Shortness of breath Gastrointestinal: COMPLAINS OF: Abdominal pain (lower abdomen), Diarrhea ( multiple loose stools daily), Nausea, DENIES: Constipation, Vomiting, Odynophagia, Swelling of Abdomen, Heartburn, Hematemesis (Virgen Russell) GI Exam Vitals I&O Vital Signs Date Time Temp Pulse Resp B/P Pulse Ox O2 Delivery O2 Flow Rate FiO2 05/29/16 08:17 98 Nasal Cannula 3.00 05/29/16 08:00 Nasal Cannula 2.00 05/29/16 08:00 97.9 93 18 148/66 95 05/29/16 07:38 91 05/29/16 04:00 98.0 92 16 145/72 97 05/29/16 00:00 98.4 96 18 167/77 98 05/28/16 20:49 97 Nasal Cannula 3.00 05/28/16 20:40 Nasal Cannula 2.00 05/28/16 20:08 104 05/28/16 20:00 98.3 104 18 157/75 99 05/28/16 16:00 98.5 96 16 169/79 94 I/O 05/28/16 05/28/16 05/28/16 05/29/16 05/29/16 05/29/16 06:59 14:59 22:59 06:59 14:59 22:59 Intake Total 480 ml 480 ml 240 ml 240 ml Output Total 0 ml 2000 ml Balance 480 ml 480 ml 240 ml 240 ml -2000 ml Intake Oral 480 ml 480 ml 240 ml 240 ml Output Urine Total 0 ml Hemodialysis 2000 ml # Voids 2 2 1 # Bowel Movements 2 2 1 0 Laboratory Test 05/29/16 06:19 White Blood Count 6.5 TH/MM3 Red Blood Count 3.52 MIL/MM3 Hemoglobin 9.6 GM/DL Hematocrit 29.5 % Mean Corpuscular Volume 83.7 FL Mean Corpuscular Hemoglobin 27.2 PG Mean Corpuscular Hemoglobin 32.5 % Concent Red Cell Distribution Width 19.9 % Platelet Count 381 TH/MM3 Mean Platelet Volume 6.9 FL Neutrophils (%) (Auto) 59.1 % Lymphocytes (%) (Auto) 15.4 % Monocytes (%) (Auto) 16.0 % Eosinophils (%) (Auto) 8.5 % Basophils (%) (Auto) 1.0 % Neutrophils # (Auto) 3.8 TH/MM3 Lymphocytes # (Auto) 1.0 TH/MM3 Monocytes # (Auto) 1.0 TH/MM3 Eosinophils # (Auto) 0.6 TH/MM3 Basophils # (Auto) 0.1 TH/MM3 CBC Comment DIFF FINAL Differential Comment Sodium Level 137 MEQ/L Potassium Level 4.4 MEQ/L Chloride Level 97 MEQ/L Carbon Dioxide Level 30.8 MEQ/L Anion Gap 9 MEQ/L Blood Urea Nitrogen 33 MG/DL Creatinine 10.05 MG/DL Estimat Glomerular Filtration 7 ML/MIN Rate Random Glucose 73 MG/DL Calcium Level 9.3 MG/DL Physical Examination HEENT: Pupils round and reactive to light; normocephalic; atraumatic; no jaundice. Throat is clear. NECK: Neck is supple, no JVD, no lymphadenopathy. CHEST: Chest is clear to auscultation and percussion. CARDIAC: Regular rate and rhythm with no murmur gallop or rubs. ABDOMEN: Soft tender in lower abdomen and epigastric area, no hepatosplenomegaly; bowel sounds are present in all four quadrants. EXTREMITIES: No clubbing, cyanosis, or edema. SKIN: Normal; no rash; no jaundice. PRODUCT MARKETING DIRECTOR: No focal deficits; alert and oriented times three. (Virgen Russell) Assessment and Plan Assessment: (1) Abdominal pain (2) Diarrhea (3) Gastroenteritis Plan This is a 45 year old male with Diabetes, ESRD on dialysis, Gastroparesis admitted with C/O diarrhea, lower abdominal/epigastric pain,N/V, shortness of breath and productive cough. Sx likely secondary to gastroenteritis. Having multiple diarrhea stools daily. Plan -Check stool cultures -IBAN -Antiemetics -Stools cultures -Supportive care Thank you for this consultation Patient was seen and examined by Dr. kuhn and myself this consult is written on his behalf. (Virgen Russell) Physician Comments Seen and examined as above, will check cultures and follow up with you. (Nicolas Kuhn MD) Problem Qualifiers (1) Abdominal pain: Qualified Code: R10.30 - Lower abdominal pain (2) Diarrhea: Qualified Code: R19.7 - Diarrhea, unspecified type Virgen Russell May 29, 2016 13:27 Nicolas Kuhn MD May 29, 2016 14:13
[2016-05-29] MEDS: ERYTHROMYCIN EC 333 MG TABEC PO SCH ×2 (14:00→21:53)
[2016-05-29] MEDS: SODIUM CHLORIDE 0.9% FLUSH 5 ML FLUSH FLUSH SCH ×2 (14:33→21:00)
[2016-05-29] MEDS: DOXEPIN HCL 50 MG CAP PO SCH (21:00)
[2016-05-29] MEDS: LOSARTAN 50 MG TAB PO SCH (21:00)
[2016-05-30] VITALS (9 sets, daily range): BP systolic 131–162; BP diastolic 66–80; PULSE 86–102; RESP 16–20; TEMP 97.4–99.2; O2SAT 94–100
[2016-05-30] MEDS: PROCHLORPERAZINE INJ 10 MG/2 ML VIAL IVS PRN ×3 (00:32→23:59)
[2016-05-30] MEDS: SODIUM CHLORIDE 0.9% FLUSH 5 ML FLUSH FLUSH PRN (00:33)
[2016-05-30] MEDS: ERYTHROMYCIN EC 333 MG TABEC PO SCH ×3 (05:07→21:06)
[2016-05-30] MEDS: INSULIN ASPART SUPPLEMENTAL SCALE SQ SCH ×4 (05:07→21:00)
[2016-05-30] MEDS: HEPARIN SODIUM - SQ 10,000 UNITS/ML VIAL SQ SCH ×3 (05:08→21:07)
[2016-05-30 07:11] LABS: BICARBONATE 30.7 MEQ/L (21.0-32.0); POTASSIUM 4.4 MEQ/L (3.5-5.1)
[2016-05-30 07:12] LABS: AUTOMATED NEUTROPHIL # 6.2 TH/MM3 (1.8-7.7); BASOPHIL # 0.1 TH/MM3 (0-0.2); BASOPHIL % 0.7 % (0.0-2.0); EOSINOPHIL # 0.4 TH/MM3 (0-0.4); EOSINOPHIL % 4.8 % (0.0-4.0); HEMATOCRIT 29.8 % (39.0-51.0); HEMO FLAGS DIFF FINAL; LYMPH % 13.4 % (9.0-44.0); LYMPHOCYTE # 1.2 TH/MM3 (1.0-4.8); MEAN CELL VOLUME 83.8 FL (80.0-100.0); MEAN CORPUSCULAR HEMOGLOBIN 28.2 PG (27.0-34.0); MEAN CORPUSCULAR HGB CONC 33.6 % (32.0-36.0); MONO % 13.1 % (0.0-8.0); PLATELET COUNT 424 TH/MM3 (150-450); RED BLOOD COUNT 3.56 MIL/MM3 (4.50-5.90); RED CELL DISTRIBUTION WIDTH 19.7 % (11.6-17.2); WHITE BLOOD COUNT 9.1 TH/MM3 (4.0-11.0)
[2016-05-30] MEDS: LACTOBACILLUS ACIDOPHILUS 1 GM PACKET PO SCH ×4 (09:00→21:07)
--- NOTE | 2016-05-30 09:05 | HHI.FPPN ---
Subjective Remarks Acute events overnight. Except for some tachycardia to the 100s and hypertension in the 160s, afebrile and vital signs stable. Per overnight report , patient was unwilling or unable to take his nausea medications, and thus he could not take his morning oral medications because of nausea. Patient continues to complain of nausea and dry heaving. He reports that Ativan has helped in the past. He reports that his diarrhea continues to be watery but does seem to be improving. (Benja Rodriguez MD R1) Objective Vitals Vital Signs Date Time Temp Pulse Resp B/P Pulse Ox O2 Delivery O2 Flow Rate FiO2 05/30/16 08:19 98 21 05/30/16 04:00 98.4 98 16 150/70 94 05/30/16 01:56 98 21 05/30/16 00:00 99.2 100 20 161/70 100 05/29/16 21:50 Nasal Cannula 2.00 05/29/16 20:08 105 05/29/16 20:00 99.2 106 18 136/60 100 05/29/16 16:00 98.7 106 18 140/71 95 05/29/16 15:27 96 21 05/29/16 13:30 99.3 107 18 130/60 96 I/O 05/29/16 05/29/16 05/29/16 05/30/16 05/30/16 05/30/16 07:00 15:00 23:00 07:00 15:00 23:00 Intake Total 240 ml 2 ml 240 ml 200 ml Output Total 0 ml 2000 ml 325 ml Balance 240 ml -1998 ml 240 ml -125 ml Intake Oral 240 ml 240 ml 200 ml IV Total 2 ml Output Urine Total 0 ml 125 ml Emesis 200 ml Hemodialysis 2000 ml # Bowel Movements 0 (Benja Rodriguez MD R1) Result Diagram: 05/30/16 0617 05/30/16 0617 Objective Remarks O. CONSTITUTIONAL/GEN: normally nourished, appears chronically ill. EYES: conjunctiva normal, PERRLA, EOMI. sclerae are muddy ENT: Mouth and pharynx normal. Moist mucous membranes. NECK: thyroid midline, carotids symmetrical. CHEST: Right chest port LUNGS: clear A-P, respiratory effort is normal. Moving adequate air, coarse sounds bilaterally without wheezes. CARDIOVASCULAR: RRR with 2/6 EVERARDO. No significant edema. GI/ABD: soft without masses, without organomegaly. Bowel sounds present : no CVA tenderness NEURO: No focal deficits. SKIN: Chronic skin changes from his hidradenitis suppurativa and a lichen-like rash on all his extremities. Scarring in the axilla from surgeries on his hidradenitis suppurativa HEME/LYMPH: no bruising, petechia or significant adenopathy MSK: back is normal in appearance. Left arm fistula with palpable thrill. Left upper lateral thigh ulcer 1cm x 0.5 cm. left axilla with half centimeter by quarter centimeter ulcer. PSYCH/MENTAL STATUS: Alert and oriented x 3. (Benja Rodriguez MD R1) A/P Assessment and Plan Anticipate that patient will feel improved after dialysis. Stopped 5 antibiotics recently and replaced them with probiotic lactobacillus and erythromycin as a promotility agent for his apparent gastroparesis. Discharge Planning Discharge once gastric symptoms resolve enough for patient to be able to go home. (Benja Rodriguez MD R1) Attending Attestation Patient seen and examined. Case reviewed and discussed with the resident team. Agree with plan of care as discussed with me and documented in the resident note. (Ciara Mejía MD) Problem List: (1) Nausea Status: Acute Plan: Patient presented with nausea and vomiting ; improving but persistent Zofran 4 mg IV push every 6 hours when necessary for nausea or vomiting Compazine 5 mg IVS every 3 hours when necessary for nausea or vomiting Phenergan 12.5 mg by mouth every 8 hours when necessary for nausea or vomiting Ativan 0.5 mg IV every 4 hours when necessary for anxiety associated with nausea and dry heaving (2) Diarrhea Status: Acute Plan: GI consulted Stool culture (3) SOB (shortness of breath) Status: Acute Plan: Home oxygen walk test for nurse report of oxygen saturation in the high 80s with oxygen on via nasal cannula (4) ESRD (end stage renal disease) on dialysis Status: Chronic Plan: Patient presents with shortness of breath after missing his HD appointment on Tuesday. Consult nephrology Continue dialysis Tuesday, , Tuesday Continue home medications: * Calcitriol 0.25 g by mouth daily * Renvela 800 mg (5) Abdominal pain Status: Acute Plan: Patient continues to have nausea, dry heaves/emesis Discontinue all opiate medications as this may be contributing to his abdominal pain Discontinue Keflex, clindamycin, Flagyl, rifampin, Bactrim as these may be contributing to patient's gastric symptoms and he does not currently have an infection. Probiotic lactobacillus to help repopulate the librado Erythromycin to increase GI motility (6) Hypertensive urgency Status: Resolved Plan: Resolved. Hydralazine 10 mg IV every 6 hours when necessary for blood pressure over 170/ 100 Clonidine 0.1 mg by mouth every 6 hours when necessary for blood pressure over 170/100 Labetalol 10 mg IV every 6 hours when necessary for blood pressure over 170/100 Vasotec 1.25 mg IV every 6 hours when necessary for blood pressure over 170/100 Home blood pressure medications as below (7) Pulmonary edema Status: Resolved Plan: Patient presented with BNP of 226 and probable mild pulmonary edema on chest x-ray. Hemodialysis as above Home diuretics as below (8) Hypertension Status: Chronic Plan: Patient reportedly stable on home medications. Continue home medications: Amlodipine Carvedilol Hydralazine Spironolactone Losartan (9) Diabetes Status: Chronic Plan: Patient reports not taking any insulin for over a year. Low-dose sliding scale insulin protocol. (10) Hydradenitis Status: Chronic Plan: Patient reports taking antibiotics for hidradenitis and rash. Antibiotics discontinued as documented above. (11) BPH (benign prostatic hyperplasia) Status: Chronic Plan: Continue home medication: Finasteride 5 mg by mouth daily (12) Insomnia Status: Chronic Plan: Stable on home medication. Continue home medications: Doxepin 100 mg by mouth daily at bedtime (13) Nutrition, metabolism, and development symptoms Status: Chronic Plan: Fluids: Fluid restrict given likely volume overload Electrolytes: Monitor and correct when necessary Nutrition: Renal diet GI prophylaxis: Protonix (14) No contraindication to deep vein thrombosis (DVT) prophylaxis Status: Acute Plan: Heparin 5000 units subcutaneous every 8 hours (Benja Rodriguez MD R1) Problem Qualifiers (1) Diarrhea: Qualified Code: R19.7 - Diarrhea, unspecified type (2) Abdominal pain: Qualified Code: R10.30 - Lower abdominal pain (3) Pulmonary edema: Qualified Code: J81.0 - Acute pulmonary edema (4) Hypertension: Qualified Code: I10 - Essential hypertension (5) Diabetes: Qualified Code: E11.8 - Type 2 diabetes mellitus with complication, without long-term current use of insulin Benja Rodriguez MD R1 May 30, 2016 09:05 Ciara Mejía MD May 30, 2016 13:02
[2016-05-30] MEDS: SEVELAMER CARBONATE 800 MG TAB PO SCH ×3 (09:16→16:55)
[2016-05-30] MEDS: PANTOPRAZOLE SOD 40 MG DELAYED RELEASE TAB PO SCH (09:16)
[2016-05-30] MEDS: amLODIPine BESYLATE 5 MG TAB PO SCH (09:17)
[2016-05-30] MEDS: hydrALAZINE HCL 50 MG TAB PO SCH ×3 (09:17→16:55)
[2016-05-30] MEDS: CALCITRIOL 0.25 MCG CAP PO SCH (09:17)
[2016-05-30] MEDS: SPIRONOLACTONE 50 MG TAB PO SCH (09:17)
[2016-05-30] MEDS: CARVEDILOL 12.5 MG TAB PO SCH ×2 (09:17→21:06)
[2016-05-30] MEDS: FINASTERIDE 5 MG TAB PO SCH (09:17)
[2016-05-30] MEDS: SODIUM CHLORIDE 0.9% FLUSH 5 ML FLUSH FLUSH SCH ×2 (09:23→21:14)
[2016-05-30] MEDS: LORazepam 2 MG/ML VIAL IV PUSH PRN ×3 (09:23→21:07)
[2016-05-30] MEDS: diphenhydrAMINE HCL 25 MG CAP PO PRN ×2 (11:57→23:58)
--- NOTE | 2016-05-30 14:55 | HHI.GIFU ---
Subjective Remarks Feeling better, less diarrhea today, still mild nausea with dry heaves at times (Virgen Russell) Objective Vitals I&O Vital Signs Date Time Temp Pulse Resp B/P Pulse Ox O2 Delivery O2 Flow Rate FiO2 05/30/16 12:00 97.4 86 18 131/66 100 05/30/16 09:30 97.4 96 18 144/67 98 05/30/16 08:19 98 21 05/30/16 08:00 Nasal Cannula 2.00 05/30/16 08:00 102 05/30/16 04:00 98.4 98 16 150/70 94 05/30/16 01:56 98 21 05/30/16 00:00 99.2 100 20 161/70 100 05/29/16 21:50 Nasal Cannula 2.00 05/29/16 20:08 105 05/29/16 20:00 99.2 106 18 136/60 100 05/29/16 16:00 98.7 106 18 140/71 95 05/29/16 15:27 96 21 I/O 05/29/16 05/29/16 05/29/16 05/30/16 05/30/16 05/30/16 07:00 15:00 23:00 07:00 15:00 23:00 Intake Total 240 ml 2 ml 240 ml 200 ml Output Total 0 ml 2000 ml 325 ml Balance 240 ml -1998 ml 240 ml -125 ml Intake Oral 240 ml 240 ml 200 ml IV Total 2 ml Output Urine Total 0 ml 125 ml Emesis 200 ml Hemodialysis 2000 ml # Bowel Movements 0 Laboratory Laboratory Tests Test 05/30/16 06:17 White Blood Count 9.1 Red Blood Count 3.56 Hemoglobin 10.0 Hematocrit 29.8 Mean Corpuscular Volume 83.8 Mean Corpuscular Hemoglobin 28.2 Mean Corpuscular Hemoglobin 33.6 Concent Red Cell Distribution Width 19.7 Platelet Count 424 Mean Platelet Volume 7.1 Neutrophils (%) (Auto) 68.0 Lymphocytes (%) (Auto) 13.4 Monocytes (%) (Auto) 13.1 Eosinophils (%) (Auto) 4.8 Basophils (%) (Auto) 0.7 Neutrophils # (Auto) 6.2 Lymphocytes # (Auto) 1.2 Monocytes # (Auto) 1.2 Eosinophils # (Auto) 0.4 Basophils # (Auto) 0.1 CBC Comment DIFF FINAL Differential Comment Sodium Level 136 Potassium Level 4.4 Chloride Level 95 Carbon Dioxide Level 30.7 Anion Gap 10 Blood Urea Nitrogen 22 Creatinine 8.32 Estimat Glomerular Filtration 9 Rate Random Glucose 79 Calcium Level 9.6 Physical Exam HEENT: Pupils round and reactive to light; normocephalic; atraumatic; no jaundice. Throat is clear. NECK: Neck is supple, no JVD, no lymphadenopathy. CHEST: Chest is clear decreased breath sounds CARDIAC: Regular rate and rhythm with no murmur gallop or rubs. ABDOMEN: Soft, nondistended,lower abdominal tenderness; no hepatosplenomegaly; bowel sounds are present in all four quadrants. EXTREMITIES: No clubbing, cyanosis, or edema. SKIN: Normal; no rash; no jaundice. REVIEW SPECIALIST: No focal deficits; alert and oriented times three. (Virgen Russell) Assessment and Plan Assessment: (1) Abdominal pain (2) Diarrhea (3) Gastroenteritis Plan This is a 45 year old male with Diabetes, ESRD on dialysis, Gastroparesis admitted with C/O diarrhea, lower abdominal/epigastric pain,N/V, shortness of breath and productive cough. Sx likely secondary to gastroenteritis. Was having multiple diarrhea stools daily, less diarrhea today. Was started on EES for gastroparesis. Plan -Check results of stool cultures -IBAN -Antiemetics -EES for Gastroparesis -Supportive care -If continues to improve ok for discharge from GI standpoint tomorrow Thank you for this consultation Patient was seen and examined by Dr. kuhn and myself this consult is written on his behalf. (Virgen Russell) Physician Comments Seen and examined, plan as above, currently stable with significant improvement. (Nicolas Kuhn MD) Problem Qualifiers (1) Abdominal pain: Qualified Code: R10.30 - Lower abdominal pain (2) Diarrhea: Qualified Code: R19.7 - Diarrhea, unspecified type Virgen Russell May 30, 2016 14:55 Nicolas Kuhn MD May 30, 2016 14:59
--- NOTE | 2016-05-30 16:20 | HHI.NPPN ---
Subjective General Problems: Anemia, Edema, Heart Disease, Hypertension Renal Failure: End Stage Renal Disease History of Present Illness 45-year-old male known to me from before with past medical history of hypertension, diabetes mellitus, end-stage renal disease on hemodialysis, history of hidradenitis, gastroparesis, came to the hospital with complaint of cough, abdominal pain, diarrhea and fever. I was called to see the patient because of management of dialysis. The patient has been on hemodialysis Tuesday, and Tuesday. Additional Remarks Patient is alert, alert, has nausea Review of Systems General Constitutional: Fatigue Respiratory Lungs: SOB, Cough, Sputum, Wheeze Cardiovascular Cardiac: Edema, PAZ Objective Data Data 05/29/16 05/30/16 18:59 06:59 Intake Total 2 ml 440 ml Output Total 2000 ml 325 ml Balance -1998 ml 115 ml Intake Oral 440 ml IV Total 2 ml Output Urine Total 125 ml Emesis 200 ml Hemodialysis 2000 ml Vital Signs Date Time Temp Pulse Resp B/P Pulse Ox O2 Delivery O2 Flow Rate FiO2 05/30/16 12:00 97.4 86 18 131/66 100 05/30/16 09:30 97.4 96 18 144/67 98 05/30/16 08:19 98 21 05/30/16 08:00 Nasal Cannula 2.00 05/30/16 08:00 102 05/30/16 04:00 98.4 98 16 150/70 94 05/30/16 01:56 98 21 05/30/16 00:00 99.2 100 20 161/70 100 05/29/16 21:50 Nasal Cannula 2.00 05/29/16 20:08 105 05/29/16 20:00 99.2 106 18 136/60 100 -: 05/30/16 0617 05/30/16 0617 Microbiology 05/30/16 Cryptosporidium Exam, Received Pending 05/30/16 Giardia Antigen (HAYDE), Received Pending Physical Exam General Appearance: Well Nourished, No Acute Distress, Comfortable Eyes Eye Exam: Pupils Equal Throat Throat Exam: Oral Mucosa [place] & Moist Neck Neck Exam: Neck Supple Pulmonary Resp Exam: Crackles, Rhonchi, Sputum, Decreased Bases, Diminished Breath Sounds Cardiology CV Exam: Regular, Normal Sinus Rhythm Gastrointestinal/Abdomen GI Exam: Soft, Non-Tender, Bowel Sounds Present, Distended Extremeties Extremities Exam: Moderate Edema, Pitting Edema, Dependent Edema Neurologic Neuro Exam: Alert, Awake, Oriented Psychiatric Psych Exam: Appropriate Responses Assessment/Plan Assessment Summary: Anemia of CKD, Fluid/Volume Overload, Hypertension, End Stage Renal Disease Problem List: (1) Anemia due to chronic kidney disease (2) Benign hypertension (3) SOB (shortness of breath) (4) Hypertension (5) Diabetes (6) Hydradenitis (7) ESRD (end stage renal disease) on dialysis Plan had nausea, vomiting HD yesterday getting treated for nausea with Protonix, on Zofran and Promethazine. On E mycin Dr. Carroll to follow Problem Qualifiers (1) Hypertension: Qualified Code: I10 - Essential hypertension (2) Diabetes: Qualified Code: E11.8 - Type 2 diabetes mellitus with complication, without long-term current use of insulin Andi Roth MD May 30, 2016 16:20
[2016-05-30 17:39] LABS: C. DIFF EPI 027 PRESUMPTIVE NEGATIVE (NEGATIVE); C. DIFF TOXIN PCR NEGATIVE (NEGATIVE)
[2016-05-30] MEDS: LOSARTAN 50 MG TAB PO SCH (21:06)
[2016-05-30] MEDS: DOXEPIN HCL 50 MG CAP PO SCH (21:06)
[2016-05-31] VITALS: BP 112/55; PULSE 103; RESP 20; TEMP 98.4; O2SAT 95
[2016-05-31 04:00] VITALS: BP 113/56; PULSE 93; RESP 18; TEMP 98.4; O2SAT 95
[2016-05-31 04:47] VITALS: PULSE 104
[2016-05-31] MEDS: ERYTHROMYCIN EC 333 MG TABEC PO SCH ×2 (05:48→12:29)
[2016-05-31] MEDS: HEPARIN SODIUM - SQ 10,000 UNITS/ML VIAL SQ SCH ×2 (05:50→12:29)
[2016-05-31] MEDS: INSULIN ASPART SUPPLEMENTAL SCALE SQ SCH ×3 (05:51→16:00)
[2016-05-31] MEDS: SEVELAMER CARBONATE 800 MG TAB PO SCH ×3 (07:29→17:00)
[2016-05-31] MEDS: LORazepam 2 MG/ML VIAL IV PUSH PRN (07:32)
[2016-05-31 08:00] VITALS: BP 155/72; PULSE 102; RESP 20; TEMP 98.6; O2SAT 97
--- NOTE | 2016-05-31 08:56 | HHI.FPPN ---
Subjective Remarks No acute events overnight. Except for some hypertension to 162/80 and tachycardia with pulse in the 100s, afebrile vital signs stable. Patient reports feeling much better today. Patient reports decreasing nausea, vomiting, diarrhea. He reports only 3 episodes of dry heaving since yesterday. Pt reports an increase in his appetite. He was able to eat some pork and rice, and actually keep it down. Patient reports that he feels well enough to go home. Patient feels that the anti-emetic medication in combination with the Ativan really helped him. (Benja Rodriguez MD R1) Objective Vitals Vital Signs Date Time Temp Pulse Resp B/P Pulse Ox O2 Delivery O2 Flow Rate FiO2 05/31/16 04:47 104 05/31/16 04:00 98.4 93 18 113/56 95 05/31/16 00:00 98.4 103 20 112/55 95 05/30/16 21:05 Nasal Cannula 2.00 05/30/16 20:00 98.1 100 20 162/80 98 05/30/16 16:00 98.6 92 18 158/71 96 05/30/16 12:00 97.4 86 18 131/66 100 05/30/16 09:30 97.4 96 18 144/67 98 I/O 05/30/16 05/30/16 05/30/16 05/31/16 05/31/16 05/31/16 07:00 15:00 23:00 07:00 15:00 23:00 Intake Total 200 ml 1000 ml 362 ml 0 ml Output Total 325 ml 1 ml 360 ml Balance -125 ml 999 ml 2 ml 0 ml Intake Oral 200 ml 1000 ml 360 ml IV Total 2 ml 0 ml Output Urine Total 125 ml 1 ml 360 ml Emesis 200 ml # Voids 3 # Bowel Movements 1 3 (Benja Rodriguez MD R1) Result Diagram: 05/30/1661605/30/16616 Objective Remarks O. CONSTITUTIONAL/GEN: normally nourished, appears chronically ill, but not uncomfortable today EYES: conjunctiva normal, PERRLA, EOMI. sclerae are muddy ENT: Mouth and pharynx normal. Moist mucous membranes. NECK: thyroid midline, carotids symmetrical. CHEST: Right chest port LUNGS: Clear to auscultation bilaterally, respiratory effort is normal. Moving adequate air, coarse sounds bilaterally without wheezes. CARDIOVASCULAR: RRR with 2/6 EVERARDO. No significant edema. GI/ABD: soft without masses, without organomegaly. Bowel sounds present : no CVA tenderness NEURO: No focal deficits. SKIN: Chronic skin changes from his hidradenitis suppurativa and a lichen-like rash on all his extremities. Scarring in the axilla from surgeries on his hidradenitis suppurativa HEME/LYMPH: no bruising, petechia or significant adenopathy MSK: back is normal in appearance. Left arm fistula with palpable thrill. Left upper lateral thigh ulcer 1cm x 0.5 cm. left axilla with half centimeter by quarter centimeter ulcer. PSYCH/MENTAL STATUS: Alert and oriented x 3. (Benja Rodriguez MD R1) A/P Assessment and Plan Stopped opiate/narcotic pain medications and 5 antibiotics recently and replaced them with probiotic lactobacillus and erythromycin as a promotility agent for his apparent gastroparesis. Discharge Planning Discharge once gastric symptoms resolve enough for patient to be able to go home. (Benja Rodriguez MD R1) Attending Attestation Patient seen and examined. Case reviewed and discussed with the resident team. Agree with plan of care as discussed with me and documented in the resident note. (Ciara Mejía MD) Problem List: (1) Gastroparesis Status: Acute Plan: Patient started on erythromycin for gastroparesis. Continue erythromycin; discharge on erythromycin (2) Nausea Status: Acute Plan: Patient presented with nausea and vomiting ; improving but persistent Zofran 4 mg IV push every 6 hours when necessary for nausea or vomiting Compazine 5 mg IVS every 3 hours when necessary for nausea or vomiting Phenergan 12.5 mg by mouth every 8 hours when necessary for nausea or vomiting Ativan 0.5 mg IV every 4 hours when necessary for anxiety associated with nausea and dry heaving Plan to discharge patient on PO Ativan, Phenergan, Zofran (3) Diarrhea Status: Acute Plan: GI consulted OK to discharge from GI standpoint if patient continues to improve. (4) SOB (shortness of breath) Status: Acute Plan: Home oxygen walk test for nurse report of oxygen saturation in the high 80s with oxygen on via nasal cannula. Likely an acute problem that does not require home oxygen. (5) Abdominal pain Status: Acute Plan: Patient continues to have nausea, dry heaves/emesis Discontinue all opiate medications as this may be contributing to his abdominal pain Discontinue Keflex, clindamycin, Flagyl, rifampin, Bactrim as these may be contributing to patient's gastric symptoms and he does not currently have an infection. Probiotic lactobacillus to help repopulate the librado Erythromycin to increase GI motility (6) ESRD (end stage renal disease) on dialysis Status: Chronic Plan: Patient presents with shortness of breath after missing his HD appointment on Tuesday. Consult nephrology Continue dialysis Tuesday, , Tuesday Continue home medications: * Calcitriol 0.25 g by mouth daily * Renvela 800 mg (7) Hypertensive urgency Status: Resolved Plan: Resolved. Hydralazine 10 mg IV every 6 hours when necessary for blood pressure over 170/ 100 Clonidine 0.1 mg by mouth every 6 hours when necessary for blood pressure over 170/100 Labetalol 10 mg IV every 6 hours when necessary for blood pressure over 170/100 Vasotec 1.25 mg IV every 6 hours when necessary for blood pressure over 170/100 Home blood pressure medications as below (8) Pulmonary edema Status: Resolved Plan: Patient presented with BNP of 226 and probable mild pulmonary edema on chest x-ray. Hemodialysis as above Home diuretics as below (9) Hypertension Status: Chronic Plan: Patient reportedly stable on home medications. Continue home medications: Amlodipine Carvedilol Hydralazine Spironolactone Losartan (10) Diabetes Status: Chronic Plan: Patient reports not taking any insulin for over a year. Low-dose sliding scale insulin protocol. (11) Hydradenitis Status: Chronic Plan: Patient reports taking antibiotics for hidradenitis and rash. Antibiotics discontinued as documented above. (12) BPH (benign prostatic hyperplasia) Status: Chronic Plan: Continue home medication: Finasteride 5 mg by mouth daily (13) Insomnia Status: Chronic Plan: Stable on home medication. Continue home medications: Doxepin 100 mg by mouth daily at bedtime (14) Nutrition, metabolism, and development symptoms Status: Chronic Plan: Fluids: Fluid restrict given likely volume overload Electrolytes: Monitor and correct when necessary Nutrition: Renal diet GI prophylaxis: Protonix (15) No contraindication to deep vein thrombosis (DVT) prophylaxis Status: Acute Plan: Heparin 5000 units subcutaneous every 8 hours (Benja Rodriguez MD R1) Problem Qualifiers (1) Diarrhea: Qualified Code: R19.7 - Diarrhea, unspecified type (2) Abdominal pain: Qualified Code: R10.30 - Lower abdominal pain (3) Pulmonary edema: Qualified Code: J81.0 - Acute pulmonary edema (4) Hypertension: Qualified Code: I10 - Essential hypertension (5) Diabetes: Qualified Code: E11.8 - Type 2 diabetes mellitus with complication, without long-term current use of insulin Benja Rodriguez MD R1 May 31, 2016 08:56 Ciara Mejía MD Jun 01, 2016 14:14
[2016-05-31] MEDS: LACTOBACILLUS ACIDOPHILUS 1 GM PACKET PO SCH ×3 (09:00→17:37)
[2016-05-31] MEDS: FINASTERIDE 5 MG TAB PO SCH (09:26)
[2016-05-31] MEDS: PANTOPRAZOLE SOD 40 MG DELAYED RELEASE TAB PO SCH (09:26)
[2016-05-31] MEDS: CALCITRIOL 0.25 MCG CAP PO SCH (09:26)
[2016-05-31] MEDS: SPIRONOLACTONE 50 MG TAB PO SCH (09:28)
[2016-05-31] MEDS: hydrALAZINE HCL 50 MG TAB PO SCH ×3 (09:28→17:36)
[2016-05-31] MEDS: CARVEDILOL 12.5 MG TAB PO SCH (09:28)
[2016-05-31] MEDS: amLODIPine BESYLATE 5 MG TAB PO SCH (09:28)
[2016-05-31] MEDS: SODIUM CHLORIDE 0.9% FLUSH 5 ML FLUSH FLUSH SCH (09:28)
--- NOTE | 2016-05-31 10:16 | HHI.NPPN ---
Subjective General Problems: Anemia, Edema, Heart Disease, Hypertension Renal Failure: End Stage Renal Disease History of Present Illness 45-year-old male known to me from before with past medical history of hypertension, diabetes mellitus, end-stage renal disease on hemodialysis, history of hidradenitis, gastroparesis, came to the hospital with complaint of cough, abdominal pain, diarrhea and fever. I was called to see the patient because of management of dialysis. The patient has been on hemodialysis Tuesday, and Tuesday. Additional Remarks Patient is alert, feeling much better, no vomiting since yesterday and started eating. Review of Systems General Constitutional: Fatigue Respiratory Lungs: SOB, Cough, Sputum, Wheeze Cardiovascular Cardiac: Edema, PAZ Objective Data Data 05/30/16 05/31/16 18:59 06:59 Intake Total 1000 ml 362 ml Output Total 1 ml 360 ml Balance 999 ml 2 ml Intake Oral 1000 ml 360 ml IV Total 2 ml Output Urine Total 1 ml 360 ml # Voids 3 # Bowel Movements 1 3 Vital Signs Date Time Temp Pulse Resp B/P Pulse Ox O2 Delivery O2 Flow Rate FiO2 05/31/16 08:00 98.6 102 20 155/72 97 05/31/16 04:47 104 05/31/16 04:00 98.4 93 18 113/56 95 05/31/16 00:00 98.4 103 20 112/55 95 05/30/16 21:05 Nasal Cannula 2.00 05/30/16 20:00 98.1 100 20 162/80 98 05/30/16 16:00 98.6 92 18 158/71 96 05/30/16 12:00 97.4 86 18 131/66 100 -: 05/30/16 0617 05/30/16 0617 Microbiology Physical Exam General Appearance: Well Nourished, No Acute Distress, Comfortable Eyes Eye Exam: Pupils Equal Throat Throat Exam: Oral Mucosa [place] & Moist Neck Neck Exam: Neck Supple Pulmonary Resp Exam: Crackles, Rhonchi, Sputum, Decreased Bases, Diminished Breath Sounds Cardiology CV Exam: Regular, Normal Sinus Rhythm Gastrointestinal/Abdomen GI Exam: Soft, Non-Tender, Bowel Sounds Present, Distended Extremeties Extremities Exam: Moderate Edema, Pitting Edema, Dependent Edema Neurologic Neuro Exam: Alert, Awake, Oriented Psychiatric Psych Exam: Appropriate Responses Assessment/Plan Assessment Summary: Anemia of CKD, Fluid/Volume Overload, Hypertension, End Stage Renal Disease Problem List: (1) Anemia due to chronic kidney disease (2) Benign hypertension (3) SOB (shortness of breath) (4) Hypertension (5) Diabetes (6) Hydradenitis (7) ESRD (end stage renal disease) on dialysis Plan Breathing is better, with nasal cannula and vomiting stopped. On Protonix, on Zofran and Promethazine. On antibiotics for Hydradenitis. GI consult noted. If stable, possible D/C home. HD is due in AM. Problem Qualifiers (1) Hypertension: Qualified Code: I10 - Essential hypertension (2) Diabetes: Qualified Code: E11.8 - Type 2 diabetes mellitus with complication, without long-term current use of insulin Teresita Carroll MD May 31, 2016 10:16
[2016-05-31 12:00] VITALS: BP 103/54; PULSE 86; RESP 20; TEMP 98.6; O2SAT 95
--- NOTE | 2016-05-31 12:29 | HHI.GIFU ---
Subjective Remarks Feeling better and tolerating regular diet well. Objective Vitals I&O Vital Signs Date Time Temp Pulse Resp B/P Pulse Ox O2 Delivery O2 Flow Rate FiO2 05/31/16 08:00 98.6 102 20 155/72 97 05/31/16 04:47 104 05/31/16 04:00 98.4 93 18 113/56 95 05/31/16 00:00 98.4 103 20 112/55 95 05/30/16 21:05 Nasal Cannula 2.00 05/30/16 20:00 98.1 100 20 162/80 98 05/30/16 16:00 98.6 92 18 158/71 96 I/O 05/30/16 05/30/16 05/30/16 05/31/16 05/31/16 05/31/16 07:00 15:00 23:00 07:00 15:00 23:00 Intake Total 200 ml 1000 ml 362 ml 0 ml Output Total 325 ml 1 ml 360 ml Balance -125 ml 999 ml 2 ml 0 ml Intake Oral 200 ml 1000 ml 360 ml IV Total 2 ml 0 ml Output Urine Total 125 ml 1 ml 360 ml Emesis 200 ml # Voids 3 # Bowel Movements 1 3 Laboratory Laboratory Tests Test 05/30/16 15:54 Stool C. difficile Toxin (PCR) NEGATIVE Stl C. difficile Toxin PRESUMPTIVE Epiderm 027 NEGATIVE Date/Time Procedure Status Source Growth 05/30/16 15:54 Cancelled Stool Stool Physical Exam HEENT: Pupils round and reactive to light; normocephalic; atraumatic; no jaundice. Throat is clear. NECK: Neck is supple, no JVD, no lymphadenopathy. CHEST: Chest is clear decreased breath sounds CARDIAC: Regular rate and rhythm with no murmur gallop or rubs. ABDOMEN: Soft, nondistended,lower abdominal tenderness; no hepatosplenomegaly; bowel sounds are present in all four quadrants. EXTREMITIES: No clubbing, cyanosis, or edema. SKIN: Normal; no rash; no jaundice. WIRE MESH FILTER FABRICATOR: No focal deficits; alert and oriented times three. Assessment and Plan Assessment: (1) Abdominal pain (2) Diarrhea (3) Gastroenteritis Plan This is a 45 year old male with Diabetes, ESRD on dialysis, Gastroparesis admitted with C/O diarrhea, lower abdominal/epigastric pain,N/V, shortness of breath and productive cough. Sx likely secondary to gastroenteritis. Was having multiple diarrhea stools daily, less diarrhea today. Was started on EES for gastroparesis. Plan -Check results of stool cultures -IBAN -Antiemetics PRN and PPI -Supportive care -Stable from GI standpoint tomorrow for discharge Problem Qualifiers (1) Abdominal pain: Qualified Code: R10.30 - Lower abdominal pain (2) Diarrhea: Qualified Code: R19.7 - Diarrhea, unspecified type Nicolas Morgan MD May 31, 2016 12:29
[2016-05-31] MEDS ORDERED: ZOFR4TAB3 SL (13:33)
[2016-05-31] MEDS ORDERED: LORA-474 PO (13:33)
[2016-05-31] MEDS ORDERED: PROM25TA5 PO (13:33)
[2016-05-31] MEDS ORDERED: ERYT250T13 PO (13:36)
[2016-05-31] MEDS ORDERED: Infusaport/Implanted VAD PRN NS Lock Flush IVF (17:45)
--- NOTE | 2016-06-15 16:16 | HHI.DS ---
Discharge Summary Admission Date May 26, 2016 at 08:34 Admitting Diagnosis intractable nausea, vomiting, abdominal pain (1) Gastroparesis Diagnosis: Principal Plan: Patient started on erythromycin for gastroparesis. Continue erythromycin; discharge on erythromycin (2) Nausea Diagnosis: Principal Plan: Patient presented with nausea and vomiting ; improving but persistent Zofran 4 mg IV push every 6 hours when necessary for nausea or vomiting Compazine 5 mg IVS every 3 hours when necessary for nausea or vomiting Phenergan 12.5 mg by mouth every 8 hours when necessary for nausea or vomiting Ativan 0.5 mg IV every 4 hours when necessary for anxiety associated with nausea and dry heaving Plan to discharge patient on PO Ativan, Phenergan, Zofran (3) Diarrhea Diagnosis: Principal Plan: GI consulted OK to discharge from GI standpoint if patient continues to improve. (4) SOB (shortness of breath) Diagnosis: Principal Plan: Home oxygen walk test for nurse report of oxygen saturation in the high 80s with oxygen on via nasal cannula. Likely an acute problem that does not require home oxygen. (5) Abdominal pain Diagnosis: Principal Plan: Patient continues to have nausea, dry heaves/emesis Discontinue all opiate medications as this may be contributing to his abdominal pain Discontinue Keflex, clindamycin, Flagyl, rifampin, Bactrim as these may be contributing to patient's gastric symptoms and he does not currently have an infection. Probiotic lactobacillus to help repopulate the librado Erythromycin to increase GI motility (6) ESRD (end stage renal disease) on dialysis Diagnosis: Principal Plan: Patient presents with shortness of breath after missing his HD appointment on Tuesday. Consult nephrology Continue dialysis Tuesday, , Tuesday Continue home medications: * Calcitriol 0.25 g by mouth daily * Renvela 800 mg (7) Hypertensive urgency Diagnosis: Secondary Plan: Resolved. Hydralazine 10 mg IV every 6 hours when necessary for blood pressure over 170/ 100 Clonidine 0.1 mg by mouth every 6 hours when necessary for blood pressure over 170/100 Labetalol 10 mg IV every 6 hours when necessary for blood pressure over 170/100 Vasotec 1.25 mg IV every 6 hours when necessary for blood pressure over 170/100 Home blood pressure medications as below (8) Pulmonary edema Diagnosis: Secondary Plan: Patient presented with BNP of 226 and probable mild pulmonary edema on chest x-ray. Hemodialysis as above Home diuretics as below (9) Hypertension Diagnosis: Secondary Plan: Patient reportedly stable on home medications. Continue home medications: Amlodipine Carvedilol Hydralazine Spironolactone Losartan (10) Diabetes Plan: Patient reports not taking any insulin for over a year. Low-dose sliding scale insulin protocol. (11) Hydradenitis Plan: Patient reports taking antibiotics for hidradenitis and rash. Antibiotics discontinued as documented above. (12) BPH (benign prostatic hyperplasia) Plan: Continue home medication: Finasteride 5 mg by mouth daily (13) Insomnia Diagnosis: Secondary Plan: Stable on home medication. Continue home medications: Doxepin 100 mg by mouth daily at bedtime (14) Nutrition, metabolism, and development symptoms Diagnosis: Secondary Plan: Fluids: Fluid restrict given likely volume overload Electrolytes: Monitor and correct when necessary Nutrition: Renal diet GI prophylaxis: Protonix (15) No contraindication to deep vein thrombosis (DVT) prophylaxis Diagnosis: Secondary Plan: Heparin 5000 units subcutaneous every 8 hours Consultants nephrology Brief History Tuesday started getting a nasty cough, sneezing, diarrhea, abdominal pain with cough, pain that shoots from his right shoulder to his back, decreased appetite , couldn't lie down because of shortness of breath that felt like drowning. Because he was in [place], helping with some family affairs, he missed HD on Tuesday. It Sales Representative and PCP Dr. Richardson. Coughing up clear thick sputum. Diarrhea all liquid. Vomiting not bloody or black. 15 episodes of vomiting since Tuesday. 10 episodes of diarrhea since Tuesday. He feels weak, tired. He reports that he almost passed out walking from car to registration desk. When going from sitting to standing, he feels very dizzy. He denies chills, but endorses fever to 101F this morning. He does not make much but still makes urine. He denied any dysuria. He reports having a headache off and on since Tuesday. His headache has been constant since this morning. His headache resolved with morphine. He denies any sick contacts. He endorses sore throat from vomiting. He denies any syncope, seizures, chest pain Hasn't slept since Tuesday. All this symptoms have become progressively worse since Tuesday. Rash for over a month. He endorses body aches. Per patient he has a history of diabetes and hypertension with dialysis every Tuesday, , Tuesday. Imaging Last Impressions Chest X-Ray 05/25/162206 Signed Impressions: Service Date/Time: Wednesday, May 25, 2016 22:20 - CONCLUSION: Borderline cardiomegaly. Suspected mild atelectasis or consolidation at the medial right lung base. Casimiro Zapata MD PE at Discharge O. CONSTITUTIONAL/GEN: normally nourished, appears chronically ill, but not uncomfortable today EYES: conjunctiva normal, PERRLA, EOMI. sclerae are muddy ENT: Mouth and pharynx normal. Moist mucous membranes. NECK: thyroid midline, carotids symmetrical. CHEST: Right chest port LUNGS: Clear to auscultation bilaterally, respiratory effort is normal. Moving adequate air, coarse sounds bilaterally without wheezes. CARDIOVASCULAR: RRR with 2/6 EVERARDO. No significant edema. GI/ABD: soft without masses, without organomegaly. Bowel sounds present : no CVA tenderness NEURO: No focal deficits. SKIN: Chronic skin changes from his hidradenitis suppurativa and a lichen-like rash on all his extremities. Scarring in the axilla from surgeries on his hidradenitis suppurativa HEME/LYMPH: no bruising, petechia or significant adenopathy MSK: back is normal in appearance. Left arm fistula with palpable thrill. Left upper lateral thigh ulcer 1cm x 0.5 cm. left axilla with half centimeter by quarter centimeter ulcer. PSYCH/MENTAL STATUS: Alert and oriented x 3. Hospital Course Pt was admitted for shortness of breath in the context of missing HD and for intractable nausea, vomiting, and abdominal pain, which persisted despite many anti-emetic medications. Pt's shortness of breath improved after HD. Pt initially presented on many antibiotics for his hydradenitis and skin rash. These medications were discontinued and pt was started on a probiotic and erythromycin to increase GI motility and treat a possible gastroparesis. Pt was discharged home when clinically stable without intractable nausea, vomiting, and abdominal pain. Pt Condition on Discharge: Stable Discharge Disposition: Discharge Home Discharge Instructions DIET: Follow Instructions for: Renal Failure Diet Activities you can perform: Regular-No Restrictions Follow up Referrals: PCP Follow-up - 1 Week New Medications: Erythromycin Base (Erythromycin Base) 250 Mg Tab 250 MG PO TIDAC Infection #60 Ref 0 TAB Lorazepam (Ativan) 1 Mg Tab 1 MG PO Q6H PRN ANXIETY AND/OR AGITATION #60 Ref 0 TAB Ondansetron Odt (Zofran Odt) 4 Mg Tab 4 MG SL Q6HR PRN Nausea/Vomiting #60 Ref 0 TAB Promethazine (Phenergan) 25 Mg Tab 25 MG PO Q6H PRN Nausea/Vomiting #60 Ref 0 TAB Continued Medications: Calcium Acetate (Phosphate Bin (Calcium Acetate) 667 Mg Cap Carvedilol (Carvedilol) 12.5 Mg Tab 12.5 MG PO BID #60 Ref 0 TAB Doxepin (Doxepin) 100 Mg Cap 100 MG PO HS #30 Ref 0 CAP Finasteride (Finasteride) 5 Mg Tab 5 MG PO DAILY Do not crush. Manage Prostate Problems #30 Ref 0 TAB Hydralazine (Hydralazine) 50 Mg Tab 50 MG PO TID Take with a meal Blood Pressure Management Ref 0 TAB Hydrocodone-Acetaminophen (Lortab) 5-325 Mg Tab 1-2 TAB PO Q6H PRN PAIN #20 TAB Insulin Human Isophane-Regular 70-30 Inj (Novolin 70-30 Inj) 1,000 Unit/10 Ml Vial 1 UNITS SQ Blood Sugar Management Ref 0 ML Losartan (Losartan) 100 Mg Tab 100 MG PO HS Blood Pressure Management #30 Ref 0 TAB Sulfamethoxazole-Trimethoprim (Bactrim DS) 800-160 Mg Tab 1 TAB PO BID Infection #20 TAB Vitamin B Cmplx/Vit C/Folic AC (Nephro-Adan Rx) 1 Tab 1 TAB PO TAB Discontinued Medications: Cephalexin (Keflex) 500 Mg Cap 500 MG PO Q6H Infection #40 Benja Cohen MD R1 Jun 15, 2016 16:16
== END 2016-05-31 17:45 | disposition home or self-care (01) | DRG 189 ==
LOC: NEPE 16:50 → NEDA 19:28 → N04A 22:44 → OBSVTOIN 05-26 08:34
PROVIDERS: ADMIT Family Medicine; ATTEND Family Medicine
PROC: 5A1D60Z (ICD-10-PCS; principal; 2016-05-24)
DX: J81.1 Chronic pulmonary edema (principal); E11.22 Type 2 diabetes mellitus with diabetic chronic kidney disease; I12.0 Hypertensive chronic kidney disease with stage 5 chronic kidney disease or end stage renal disease; N18.6 End stage renal disease; E87.70 Fluid overload, unspecified; K31.84 Gastroparesis; E11.649 Type 2 diabetes mellitus with hypoglycemia without coma; K52.9 Noninfective gastroenteritis and colitis, unspecified; Z99.2 Dependence on renal dialysis; L73.2 Hidradenitis suppurativa; I16.0 Hypertensive urgency; E87.5 Hyperkalemia; N40.0 Benign prostatic hyperplasia without lower urinary tract symptoms; G47.00 Insomnia, unspecified; D63.1 Anemia in chronic kidney disease
CPT/HCPCS: 36600; 71010; 71020; 80048; 80053; 81001; 82550; 82552; 82805; 82947; 82948; 83605; 83690; 83880; 84132; 84484; 85025; 85027; 85610; 85730; 87493; 87804; 90935; 93005; 94150; 94640; 94664; 96374; 96375; G0257; J0780; J1642; J1644; J1815; J2060; J2270; J2405; J7030; Q0169; Q4081

== ENCOUNTER 2016-08-08 18:48 | Inpatient (IN) | payer MEDICARE, OTHER ==
[2016-08-08] VITALS (11 sets, daily range): BP systolic 162–230; BP diastolic 66–108; PULSE 80–92; RESP 16–20; O2SAT 98–100
[~2016-08-08] VITALS: Ht 172.7 cm; Wt 91.9 kg
[~2016-08-08 18:48] MED LIST changes: -CEPH-460 PO; +ERYT250T13 PO; +LORA-474 PO; +PROM25TA5 PO; +ZOFR4TAB3 SL
[2016-08-08] MEDS ORDERED: LABETALOL HCL 100 MG/20 ML VIAL IV PUSH ONE ×2 (19:00→19:15)
[2016-08-08] MEDS ORDERED: SODIUM CHLORIDE 0.9% FLUSH 5 ML FLUSH IVF PRN (19:00)
--- NOTE | 2016-08-08 19:09 | PD ---
HPI Chief Complaint: Stroke Alert Time Seen by Provider: 18:57 Travel History International Travel<30 days: No Contact w/Intl Traveler<30days: No Traveled to known affect area: No History of Present Illness HPI Patient is a 45 year old male who presents to ER for evaluation of acute cva. As per EMS, patient arrived at their station with complaints of confusion and alerted mental status. Reports that all they the information they could obtain from him was that he was a dialysis patient. Reports that upon arrival to ER at 6:48 PM, patient began to have left sided facial droop with left sided arm weakness. Patient is not able to provide history of present illness this time. patient does have a left sided av fistula. After patient returns to the ER, reports that his left arm began to hurt him after EMS lifted him onto the stretcher. Reports that he has been having increased pain to his left arm possibly from being moved. Reports that he was driving his car today - unsure where he was going but reports that he felt sick so he pulled his car over. Reports that he felt nauseous and sick to his stomach , reports that he did ask a bystander for help and was told to try to the nearest police station around the corner. Patient reports that when he arrived there, he was confused and was having generalized weakness as well as abdominal pain. PFSH Past Medical History Anemia: Yes Arthritis: No Autoimmune Disease: No Blood Disorders: No Anxiety: Yes Depression: Yes Heart Rhythm Problems: Yes (TACHYCARDIA) Cancer: No Cardiac Catheterization: No Cardiovascular Problems: Yes High Cholesterol: No Chemotherapy: No Chest Pain: Yes Congestive Heart Failure: No COPD: No Cerebrovascular Accident: No Diabetes: Yes Dialysis: Yes () Diminished Hearing: No Endocrine: Yes Gastrointestinal Disorders: Yes (GASTROPARESIS) GERD: No Glaucoma: No Genitourinary: Yes Headaches: Yes Hepatitis: No Hiatal Hernia: No Hypertension: Yes Immune Disorder: No Implanted Vascular Access Dvce: Yes (PORT) Kidney Stones: No Musculoskeletal: Yes Neurologic: Yes (NEUROPATHY IN LEGS) Psychiatric: Yes Reproductive: No Respiratory: No Immunizations Current: Yes Myocardial Infarction: No Radiation Therapy: No Renal Failure: Yes Seizures: Yes Sickle Cell Disease: Yes (PT STATES HE HAS THE "TRAIT") Sleep Apnea: No Thyroid Disease: No Ulcer: No PNEUMOCCOCAL Vaccine (Year): 1 Past Surgical History Abdominal Surgery: Yes (multiple surgeries due to poor sweat glands) AICD: No Arteriovenous Shunt: No (LEFT UPPER ARM FISTULA) Body Medical Devices: left arm fistula; right chest port TENCHKOFF Cardiac Surgery: No Coronary Artery Bypass Graft: No Ear Surgery: No Endocrine Surgery: No Eye Surgery: No Genitourinary Surgery: Yes (TENKCHOFF TUBE FOR PD ) Gynecologic Surgery: No Insulin Pump: No Joint Replacement: No Oral Surgery: No Pacemaker: No Thoracic Surgery: No Other Surgery: Yes (FISTULA UPPER LEFT ARM) Social History Alcohol Use: No Tobacco Use: No Substance Use: No Allergies-Medications (Allergen,Severity, Reaction): Coded Allergies: Contrast Media (Unverified Allergy, Severe, nausea/vomiting, 08/08/16) causes n/v HAD TEST TODAY 11/15/11 TOOK BENADRYL AND DID OK. Reglan (Verified Allergy, Severe, ANXIETY, 08/08/16) Seafood (Verified Allergy, Severe, SWELLING-CANT BREATH-HIVES, 08/08/16) Reported Meds & Prescriptions Reported Meds & Active Scripts Active Erythromycin Base 250 Mg Tab 250 Mg PO TIDAC Phenergan (Promethazine HCl) 25 Mg Tab 25 Mg PO Q6H PRN Zofran Odt (Ondansetron Odt) 4 Mg Tab 4 Mg SL Q6HR PRN Ativan (Lorazepam) 1 Mg Tab 1 Mg PO Q6H PRN Lortab (Hydrocodone-Acetaminophen) 5-325 Mg Tab 1-2 Tab PO Q6H PRN Bactrim DS (Sulfamethoxazole-Trimethoprim) 800-160 Mg Tab 1 Tab PO BID Reported Nephro-Adan Rx (Vitamin B Cmplx/Vit C/Folic AC) 1 Tab 1 Tab PO Novolin 70-30 Inj (Insulin Human Isoph/Insulin Regular) 1,000 Unit/10 Ml Vial 1 Units SQ Losartan (Losartan Potassium) 100 Mg Tab 100 Mg PO HS Hydralazine (Hydralazine HCl) 50 Mg Tab 50 Mg PO TID Take with a meal Finasteride 5 Mg Tab 5 Mg PO DAILY Do not crush. Doxepin (Doxepin HCl) 100 Mg Cap 100 Mg PO HS Carvedilol 12.5 Mg Tab 12.5 Mg PO BID Calcium Acetate (Calcium Acetate (Phosphate Bin) 667 Mg Cap Review of Systems General / Constitutional: No: Fever Eyes: No: Visual changes HENT: No: Headaches Cardiovascular: No: Chest Pain or Discomfort Respiratory: No: Shortness of Breath Gastrointestinal: No: Abdominal Pain Genitourinary: No: Dysuria Musculoskeletal: No: Pain Skin: No Rash Neurologic: Positive: Weakness, Dizziness, Coordination Problem Psychiatric: No: Depression Endocrine: No: Polydipsia Hematologic/Lymphatic: No: Easy Bruising Physical Exam Narrative GENERAL: Patient confused,alert to person and place SKIN: Warm and dry. HEAD: Atraumatic. Normocephalic. EYES: Pupils equal and round. No scleral icterus. No injection or drainage. ENT: No nasal bleeding or discharge. Mucous membranes pink and moist. NECK: Trachea midline. No JVD. CARDIOVASCULAR: Regular rate and rhythm. No murmur appreciated. RESPIRATORY: No accessory muscle use. Clear to auscultation. Breath sounds equal bilaterally. GASTROINTESTINAL: Abdomen soft, non-tender, nondistended. Hepatic and splenic margins not palpable. MUSCULOSKELETAL: No obvious deformities. No clubbing. No cyanosis. No edema. NEUROLOGICAL: Awake and alert. Normal speech, NIH Scale 5 - pt with left sided facial droops, left arm weakness, left leg weakness and left arm ataxia, pt confused - unsure of time and events that occured today PSYCHIATRIC: Appropriate mood and affect; insight and judgment normal. Data Data Last Documented VS Vital Signs Date Time Temp Pulse Resp B/P Pulse Ox O2 Delivery O2 Flow Rate FiO2 08/08/16 19:38 82 16 220/98 100 08/08/16 19:24 Nasal Cannula 2 Orders Electrocardiogram (08/08/16 18:50) Prothrombin Time / Inr (Pt) (08/08/16 18:50) Act Partial Throm Time (Ptt) (08/08/16 18:50) Complete Blood Count With Diff (08/08/16 18:50) Comprehensive Metabolic Panel (08/08/16 18:50) Creatine Kinase (Cpk) (08/08/16 18:50) Troponin I (08/08/16 18:50) Urinalysis - C+S If Indicated (08/08/16 18:50) Chest, Single Ap (08/08/16 18:50) Ecg Monitoring (08/08/16 18:50) Iv Access Insert/Monitor (08/08/16 18:50) Oximetry (08/08/16 18:50) Blood Glucose (08/08/16 18:50) Sodium Chloride 0.9% Flush (Ns Flush) (08/08/16 19:00) Ct Brain W/O Iv Contrast(Rout) (08/08/16 18:53) Labetalol Inj (Trandate Inj) (08/08/16 19:15) I-Stat Creatinine (08/08/16 18:50) I-Stat Profile (08/08/16 18:50) Nicardipine Inj (Cardene Inj) (08/08/16 19:45) Ct Abd/Pel W/O Iv Contrast (08/08/16 19:33) Consult Neurology (08/08/16 ) Electrocardiogram (08/08/16 ) Aspirin Supp (Aspirin Supp) (08/08/16 20:00) Ct Thorax/ Chest Wo Iv Contras (08/08/16 ) Mri Brain W/O Contrast (08/08/16 ) Admit Order (Ed Use Only) (08/08/16 20:21) Labs Laboratory Tests Test 08/08/16 19:10 White Blood Count 8.7 TH/MM3 Red Blood Count 3.13 MIL/MM3 Hemoglobin 8.8 GM/DL Bedside Hemoglobin 9.2 G/DL Hematocrit 27.2 % Bedside Hematocrit 27.0 % Mean Corpuscular Volume 86.8 FL Mean Corpuscular Hemoglobin 28.1 PG Mean Corpuscular Hemoglobin 32.4 % Concent Red Cell Distribution Width 20.2 % Platelet Count 372 TH/MM3 Mean Platelet Volume 7.0 FL Neutrophils (%) (Auto) 72.7 % Lymphocytes (%) (Auto) 11.6 % Monocytes (%) (Auto) 10.4 % Eosinophils (%) (Auto) 4.8 % Basophils (%) (Auto) 0.5 % Neutrophils # (Auto) 6.3 TH/MM3 Lymphocytes # (Auto) 1.0 TH/MM3 Monocytes # (Auto) 0.9 TH/MM3 Eosinophils # (Auto) 0.4 TH/MM3 Basophils # (Auto) 0.0 TH/MM3 CBC Comment DIFF FINAL Differential Comment Prothrombin Time 12.1 SEC Prothromb Time International 1.1 RATIO Ratio Activated Partial 31.7 SEC Thromboplast Time Bedside Sodium 139 MMOL/L Sodium Level 139 MEQ/L Bedside Potassium 5.6 MMOL/L Potassium Level 5.6 MEQ/L Bedside Chloride 104 MMOL/L Chloride Level 101 MEQ/L Carbon Dioxide Level 25.6 MEQ/L Anion Gap 12 MEQ/L Bedside Blood Urea Nitrogen 66 MG/DL Blood Urea Nitrogen 57 MG/DL Creatinine 9.43 MG/DL Bedside Creatinine 9.3 MG/DL Estimat Glomerular Filtration 7 ML/MIN Rate Bedside Glucose 101 MG/DL Random Glucose 100 MG/DL Calcium Level 9.7 MG/DL Total Bilirubin 0.4 MG/DL Aspartate Amino Transf 28 U/L (AST/SGOT) Alanine Aminotransferase 33 U/L (ALT/SGPT) Alkaline Phosphatase 91 U/L Total Creatine Kinase 255 U/L Troponin I 0.16 NG/ML Total Protein 7.6 GM/DL Albumin 2.9 GM/DL MDM Medical Screen Exam Complete: Yes Emergency Medical Condition: Yes EKG Prior to Arrival: No Differential Diagnosis CVA, TIA, hypertensive emergency, metabolic encephalopathy, ACS Narrative Course Patient is a 45-year-old male with history of end-stage renal disease, hypertension, hemodialysis, presents to emergency room for evaluation of possible CVA. As per patient, he didn't know where he was driving today and reports that he felt sick and had to pull his car over and ask for help. Patient did drive to the closed police station requesting help. As per EMS, when he arrived on scene , patient was confused. Reports that upon arrival to ER, he was having left sided facial droop with left arm and left leg weakness. When patient arrived to ER, he was confused and unable to provide hpi. BS obtained = 118 and stroke alert called overhead. NIH scale 5 When patient arrived back to ER from [place], pt became less confused and became more conversive and was able to provide hpi. Patient reports that his left arm is hurting him but reports that it began to hurt him when he was moved by EMS. Patient does have mild left sided weakness which is improving during ER visit. case was reviewed with Dr Velazquez, does not want lytics at this time because patient has rapidly resolving symptoms. as per his nih scale, his left sided weakness is mild and patient is not complaining of pains to his arm from being moved. request MRI and carotid US in the AM patients bp was 220/98 upon arrival to ER, pt was given labetolol 10mg iv and repeat bp 194/95. will start patient on cardene gtt and give patient a rectal aspirin patient is complaining of abdominal pain at this time, ct of the abdomen and pelvis ordered EKG at 92bpm, qt/qtc: 349/399, 0.5mm st seg elevation II, III, avf with no reciprocal changes - patient with no chest pain at this time - bp was initial ekg performed with blood pressure of 219/98 - differential does include hypertensive encephalopathy - will re-evaluate once on cardene gtt case reviewed with Dr Handley, Truck Driver Teamster who accepts pt to service, request MRI be ordered tonight repeat ekg at 1842: nsr at 81bpm, qt/qtc: 370/408 , st seg improved Critical Care Narrative Aggregate critical care time was 60 minutes. Time to perform other separately billable procedures was not included in the critical care time. My time did not include minutes spent treating any other patients simultaneously or on activities that did not directly contribute to the patient's treatment. The services I provided to this patient were to treat and/or prevent clinically significant deterioration that could result in: , decompensation, deterioration I provided critical care services requiring my management, as noted below: Chart data review, documentation time, medication orders and management, vital sign assessments/reviewing monitor data, ordering and reviewing lab tests, ordering and interpreting/reviewing x-rays and diagnostic studies, care of the patient and discussion of the patient with the admitting physicians. Stroke Alert NIHSS NIH Stroke Scale Result: 5 NIHSS Time Completed: 18:49 Thrombolytic Contraindications Contraindications Comment: rapidly resolving symptoms Diagnosis Diagnosis: Primary Impression: CVA (cerebral vascular accident) Qualified Code: I63.9 - Cerebrovascular accident (CVA), unspecified mechanism Additional Impression: Hypertensive emergency Admitting Physician Requests: Admit Shayy Caldwell DO Aug 08, 2016 19:09
--- NOTE | 2016-08-08 19:11 | RADRPT ---
EXAM DATE/TIME: 08/08/2016 19:00 [facility] COMPARISON: No previous studies available for comparison. INDICATIONS : Stroke alert; confusion, left sided weakness and RADIATION DOSE: 42.44 CTDIvol (mGy) This report was called by Dr. Singer to Dr. Velazquez at 7: 09 PM MEDICAL HISTORY : Seizures. Cardiovascular disease Hypertension. SURGICAL HISTORY : None. ENCOUNTER: Initial ACUITY: 1 day PAIN SCALE: 5/10 LOCATION: cranial TECHNIQUE: Multiple contiguous axial images were obtained of the head. Using automated exposure control and adj ustment of the mA and/or kV according to patient size, radiation dose was kept as low as reasonably a chievable to obtain optimal diagnostic quality images. FINDINGS: CEREBRUM: The ventricles are normal for age. No evidence of midline shift, mass lesion, hemorrhage or acute in farction. No extra-axial fluid collections are seen. POSTERIOR FOSSA: The cerebellum and brainstem are intact. The 4th ventricle is midline. The cerebellopontine angle i s unremarkable. EXTRACRANIAL: The visualized portion of the orbits is intact. SKULL: The calvaria is intact. No evidence of skull fracture. CONCLUSION: Normal examination for a patient of this age. No significant change has occurred. Vladimir Singer MD on August 08, 2016 at 19:05 Board Certified Radiologist. This report was verified electronically.
--- NOTE | 2016-08-08 19:25 | RADRPT ---
EXAM DATE/TIME: 08/08/2016 19:06 [facility] COMPARISON: No previous studies available for comparison. INDICATIONS : Chest pain, left sided numnbess. MEDICAL HISTORY : None. SURGICAL HISTORY : Port placement. ENCOUNTER: Initial ACUITY: 1 day PAIN SCORE: 4/10 LOCATION: Bilateral chest FINDINGS: Lung volumes are small and there are mild, diffuse airspace opacities. No large effusion. No pneumoth orax. Mild cardiomegaly similar to before. A right subclavian [id number] catheter is again seen wi th tip at the atriocaval junction. CONCLUSION: Mild bilateral diffuse airspace opacities. Casimiro Hair MD on August 08, 2016 at 19:21 Board Certified Radiologist. This report was verified electronically.
[2016-08-08 19:32] LABS: AUTOMATED NEUTROPHIL # 6.3 TH/MM3 (1.8-7.7); BASOPHIL % 0.5 % (0.0-2.0); EOSINOPHIL # 0.4 TH/MM3 (0-0.4); EOSINOPHIL % 4.8 % (0.0-4.0); HEMATOCRIT 27.2 % (39.0-51.0); HEMO FLAGS DIFF FINAL; LYMPH % 11.6 % (9.0-44.0); MEAN CELL VOLUME 86.8 FL (80.0-100.0); MEAN CORPUSCULAR HEMOGLOBIN 28.1 PG (27.0-34.0); MEAN CORPUSCULAR HGB CONC 32.4 % (32.0-36.0); MONO % 10.4 % (0.0-8.0); NEUT % 72.7 % (16.0-70.0); PLATELET COUNT 372 TH/MM3 (150-450); RED BLOOD COUNT 3.13 MIL/MM3 (4.50-5.90); RED CELL DISTRIBUTION WIDTH 20.2 % (11.6-17.2); WHITE BLOOD COUNT 8.7 TH/MM3 (4.0-11.0)
[2016-08-08 19:40] LABS: I-STAT POTASSIUM 5.6 MMOL/L (3.5-4.9); I-STAT SODIUM 139 MMOL/L (138-146)
[2016-08-08 19:43] LABS: APTT (PATIENT) 31.7 SEC (24.3-30.1); INTERNATIONAL NORMALIZED RATIO 1.1 RATIO; PROTHROMBIN TIME - PATIENT 12.1 SEC (9.8-11.6)
[2016-08-08] MEDS ORDERED: ASPIRIN 300 MG SUPP RECTAL ONE (20:00)
[2016-08-08 20:07] LABS: ALKALINE PHOSPHATASE 91 U/L (45-117); ALT (GPT) 33 U/L (12-78); ANION GAP 12 MEQ/L (5-15); AST (GOT) 28 U/L (15-37); BICARBONATE 25.6 MEQ/L (21.0-32.0); BLOOD UREA NITROGEN 57 MG/DL (7-18); CHLORIDE 101 MEQ/L (98-107); CREATINE KINASE 255 U/L (39-308); GLOMERULAR FILTRATION RATE 7 ML/MIN (>89); SODIUM (NA) 139 MEQ/L (136-145); TOTAL BILIRUBIN ADULT 0.4 MG/DL (0.2-1.0)
[2016-08-08 20:08] LABS: POTASSIUM 5.6 MEQ/L (3.5-5.1)
[2016-08-08] MEDS: niCARdipine INJ 25 MG in SODIUM CHLOR 0.9% 250 ML INJ 250 ML IV SCH (20:30)
--- NOTE | 2016-08-08 20:41 | RADRPT ---
EXAM DATE/TIME: 08/08/2016 19:58 [facility] COMPARISON: No previous studies available for comparison. INDICATIONS : Evaluate for congestive heart failure. RADIATION DOSE: 19.47 CTDIvol (mGy) ; Combined studies MEDICAL HISTORY : cardiovascular disease, seizures, renal failure, diabetes SURGICAL HISTORY : None. ENCOUNTER: Initial ACUITY: 1 day PAIN SCALE: 0/10 LOCATION: Bilateral chest TECHNIQUE: Volumetric scanning of the chest was performed. Using automated exposure control and adjustment of t he mA and/or kV according to patient size, radiation dose was kept as low as reasonably achievable to obtain optimal diagnostic quality images. FINDINGS: Minimal groundglass opacities and thickening of the interlobular septa seen at both bases. Mild panch joe enlargement of the heart. There is a small pericardial effusion. Coronary artery and mitral beto ve calcification noted. No pleural effusion. No pneumothorax. There is bilateral gynecomastia. Upper limits of normal axillary lymph nodes seen, measuring up to 17 mm in greatest short axis dimension. I don't see any mediastinal or hilar lymphadenopathy. CONCLUSION: 1. Trace failure in the proper clinical setting. 2. Small pericardial effusion, nonspecific. 3. Coronary artery calcification. 4. Upper limits of normal axillary lymph nodes. 5. Bilateral gynecomastia. Casimiro Hair MD on August 08, 2016 at 20:37 Board Certified Radiologist. This report was verified electronically.
--- NOTE | 2016-08-08 20:58 | RADRPT ---
EXAM DATE/TIME: 08/08/2016 19:58 [facility] COMPARISON: No previous studies available for comparison. INDICATIONS : Right lower abdominal pain. ORAL CONTRAST: No oral contrast ingested. RADIATION DOSE: 19.47 CTDIvol (mGy) ; Combined studies - Thorax/Abdomen/Pelvis MEDICAL HISTORY : Seizures. Cardiovascular disease Hypertension.Dialysis. Renal failure. SURGICAL HISTORY : AV shunt. ENCOUNTER: Initial ACUITY: 1 day PAIN SCALE: 7/10 LOCATION: Right lower quadrant abdomen TECHNIQUE: Volumetric scanning of the abdomen and pelvis was performed. Using automated exposure control and ad justment of the mA and/or kV according to patient size, radiation dose was kept as low as reasonably achievable to obtain optimal diagnostic quality images. FINDINGS: There is a 3.2 x 5.1 cm mass of the right kidney with features most typical of a rim calcified, mildl y lobulated/septated cyst. I don't see any hydronephrosis or hydroureter. No stones are demonstrated. Noncontrast appearance of other solid organs within normal limits. No obstruction or acute inflammatory changes are seen of the gastrointestinal tract. The appendix is well-visualized, normal. Small stones are seen in a contracted gallbladder. No ductal stone or ductal dilatation. Diffuse vascular calcification noted. There are mildly enlarged bilateral inguinal lymph nodes that measure up to 14 mm in greatest short a xis dimension. At the superior margin of the gluteal fold is a 2.5 cm indurated mass, could be a pilonidal cyst. The re is broad area of subcutaneous and skin induration of the buttock, right more so than left. Similar skin and subcutaneous findings are seen of the visualized left inguinal region and upper thigh. Plea se correlate clinically. Bones are diffusely sclerotic, presumably related to chronic renal disease. There is a well-circumscr ibed lytic lesion of the right iliac bone measuring 8 x 16 mm in size. A smaller one measuring 5 mm i s seen nearby. There is an approximately 2 cm peritoneal defect at the umbilicus containing fat only. The adjacent s ubcutaneous fat of the anterior abdominal wall is focally indurated, nonspecific. CONCLUSION: 1. No obstruction or acute inflammatory changes are seen in the abdomen or pelvis. Normal appendix. 2. Complex cyst of the right kidney as described above. Further characterization with a contrast enha nced study is suggested when clinically feasible. 3. Small stones in a contracted gallbladder. No inflammatory changes. No ductal stone or ductal dilat ation. 4. Areas of skin and subcutaneous induration, especially the right buttock and left inguinal regions. These are nonspecific. Also a potential pilonidal cyst. 5. Diffuse sclerosis of the visualized osseous structures typical of chronic renal disease. Possible small brown tumors of the right iliac bone. 6. There is a small fat containing hernia at the umbilicus. Casimiro Hair MD on August 08, 2016 at 20:49 Board Certified Radiologist. This report was verified electronically.
[2016-08-08] MEDS ORDERED: LORazepam 2 MG/ML VIAL ONE (21:20)
--- NOTE | 2016-08-08 21:26 | HHI.HP ---
HPI Service Critical Care Medicine Primary Care Physician Blair Richardson MD Admission Diagnosis CVA Diagnosis: Travel History International Travel<30 Days: No Contact w/Intl Traveler <30 Da: No Traveled to Known Affected Are: No History of Present Illness History of Present Illness HPI Patient is a 45 year old male who presents to ER for evaluation of acute cva. As per EMS, patient arrived at their station with complaints of confusion and alerted mental status. Reports that all the information they could obtain from him was that he was a dialysis patient. Reports that upon arrival to ER at 6: 48 PM, patient began to have left sided facial droop with left sided arm weakness. Patient is not able to provide history of present illness this time. patient does have a left sided av fistula. After patient returns to the ER, reports that his left arm began to hurt him after EMS lifted him onto the stretcher. Reports that he has been having increased pain to his left arm possibly from being moved. Reports that he was driving his car today - unsure where he was going but reports that he felt sick so he pulled his car over. Reports that he felt nauseous and sick to his stomach , reports that he did ask a bystander for help and was told to drive to the nearest police station around the corner. Patient reports that when he arrived there, he was confused and was having generalized weakness as well as abdominal pain. Patient was evaluated in the ER, stroke alert was called and Dr. Caldwell from ER discussed the case with neurology Dr. Velazquez. Head CT was negative for bleed. Patient was noted to have systolic blood pressure to 20s. He had barely discernible left upper extremity weakness which was also felt to be secondary to pain on that side. Decision was made not to administer TPA as the diagnosis of stroke was not certain. Patient was confused with elevated blood pressure and was initiated on a nicardipine drip. He underwent a CT of the chest abdomen pelvis as he was also complaining of abdominal pain and left-sided chest wall pain with question of infiltrates on his chest x-ray. He did not have any fever or leukocytosis. Patient was accepted for admission by critical care medicine service. When I evaluated the patient he was laying in the ER stretcher. He knew his name however did not remember any further details regarding him being on dialysis or where he lived or what his medical problems were. PFSH Past Medical History Anemia: Yes Arthritis: No Autoimmune Disease: No Blood Disorders: No Anxiety: Yes Depression: Yes Heart Rhythm Problems: Yes (TACHYCARDIA) Cancer: No Cardiac Catheterization: No Cardiovascular Problems: Yes High Cholesterol: No Chemotherapy: No Chest Pain: Yes Congestive Heart Failure: No COPD: No Cerebrovascular Accident: No Diabetes: Yes Dialysis: Yes (M W F) Diminished Hearing: No Endocrine: Yes Gastrointestinal Disorders: Yes (GASTROPARESIS) GERD: No Glaucoma: No Genitourinary: Yes Headaches: Yes Hepatitis: No Hiatal Hernia: No Hypertension: Yes Immune Disorder: No Implanted Vascular Access Dvce: Yes (PORT) Kidney Stones: No Musculoskeletal: Yes Neurologic: Yes (NEUROPATHY IN LEGS) Psychiatric: Yes Reproductive: No Respiratory: No Immunizations Current: Yes Myocardial Infarction: No Radiation Therapy: No Renal Failure: Yes Seizures: Yes Sickle Cell Disease: Yes (PT HAS STATED HE HAS THE "TRAIT") Sleep Apnea: No Thyroid Disease: No Ulcer: No PNEUMOCCOCAL Vaccine (Year): 1 Past Surgical History Abdominal Surgery: Yes (multiple surgeries due to poor sweat glands) AICD: No Arteriovenous Shunt: No (LEFT UPPER ARM FISTULA) Body Medical Devices: left arm fistula; right chest port Cardiac Surgery: No Coronary Artery Bypass Graft: No Ear Surgery: No Endocrine Surgery: No Eye Surgery: No Genitourinary Surgery: Yes (TENKCHOFF TUBE FOR PD ) Gynecologic Surgery: No Insulin Pump: No Joint Replacement: No Oral Surgery: No Pacemaker: No Thoracic Surgery: No Other Surgery: Yes (FISTULA UPPER LEFT ARM) HYDRADENITIS Social History Alcohol Use: No Tobacco Use: No Substance Use: No Allergies-Medications (Allergen,Severity, Reaction): Coded Allergies: Contrast Media (Unverified Allergy, Severe, nausea/vomiting, 08/08/16) causes n/v HAD TEST TODAY 11/15/11 TOOK BENADRYL AND DID OK. Reglan (Verified Allergy, Severe, ANXIETY, 08/08/16) Seafood (Verified Allergy, Severe, SWELLING-CANT BREATH-HIVES, 08/08/16) Reported Meds & Prescriptions Reported Meds & Active Scripts Active Erythromycin Base 250 Mg Tab 250 Mg PO TIDAC Phenergan (Promethazine HCl) 25 Mg Tab 25 Mg PO Q6H PRN Zofran Odt (Ondansetron Odt) 4 Mg Tab 4 Mg SL Q6HR PRN Ativan (Lorazepam) 1 Mg Tab 1 Mg PO Q6H PRN Lortab (Hydrocodone-Acetaminophen) 5-325 Mg Tab 1-2 Tab PO Q6H PRN Bactrim DS (Sulfamethoxazole-Trimethoprim) 800-160 Mg Tab 1 Tab PO BID Reported Nephro-Adan Rx (Vitamin B Cmplx/Vit C/Folic AC) 1 Tab 1 Tab PO Novolin 70-30 Inj (Insulin Human Isoph/Insulin Regular) 1,000 Unit/10 Ml Vial 1 Units SQ Losartan (Losartan Potassium) 100 Mg Tab 100 Mg PO HS Hydralazine (Hydralazine HCl) 50 Mg Tab 50 Mg PO TID Take with a meal Finasteride 5 Mg Tab 5 Mg PO DAILY Do not crush. Doxepin (Doxepin HCl) 100 Mg Cap 100 Mg PO HS Carvedilol 12.5 Mg Tab 12.5 Mg PO BID Calcium Acetate (Calcium Acetate (Phosphate Bin) 667 Mg Cap Review of Systems General / Constitutional: No: Fever Eyes: No: Visual changes HENT: No: Headaches Cardiovascular: No: Chest Pain or Discomfort Respiratory: No: Shortness of Breath Gastrointestinal: No: Abdominal Pain Genitourinary: No: Dysuria Musculoskeletal: No: Pain Skin: No Rash Neurologic: Positive: Weakness, Dizziness, Coordination Problem Psychiatric: No: Depression Endocrine: No: Polydipsia Hematologic/Lymphatic: No: Easy Bruising Past Family Social History Allergies: Coded Allergies: Contrast Media (Unverified Allergy, Severe, nausea/vomiting, 08/08/16) causes n/v HAD TEST TODAY 11/15/11 TOOK BENADRYL AND DID OK. Reglan (Verified Allergy, Severe, ANXIETY, 08/08/16) Seafood (Verified Allergy, Severe, SWELLING-CANT BREATH-HIVES, 08/08/16) Physical Exam Vital Signs Vital Signs Date Time Temp Pulse Resp B/P Pulse Ox O2 Delivery O2 Flow Rate FiO2 08/08/16 19:38 82 16 220/98 100 08/08/16 19:24 80 18 196/86 100 Nasal Cannula 2 08/08/16 19:10 80 16 194/95 100 08/08/16 19:05 84 16 219/98 100 08/08/16 19:00 90 18 219/98 100 08/08/16 18:57 98 Room Air 08/08/16 18:55 92 18 230/108 98 08/08/16 18:50 92 20 100 Physical Exam Physical Exam Narrative GENERAL: Patient confused,alert to person and place SKIN: Warm and dry. HEAD: Atraumatic. Normocephalic. EYES: Pupils equal and round. No scleral icterus. No injection or drainage. ENT: No nasal bleeding or discharge. Mucous membranes pink and moist. NECK: Trachea midline. No JVD. CARDIOVASCULAR: Regular rate and rhythm. No murmur appreciated. RESPIRATORY: No accessory muscle use. Clear to auscultation. Breath sounds equal bilaterally. GASTROINTESTINAL: Abdomen soft, vague tenderness on right side, nondistended. Hepatic and splenic margins not palpable. Bowel sounds sluggish MUSCULOSKELETAL: No obvious deformities. No clubbing. No cyanosis. No edema. NEUROLOGICAL: Awake and alert. Normal speech, NIH Scale 5 - pt with left sided facial droop, left arm weakness grade 4, left leg weakness grade 4, pt confused Extremities: Warm bilaterally, no edema. Left arm AV fistula noted with positive thrill. Skin: Left-sided chest wall and mid axillary line just inferior to axilla patient appears to have hydradenitis. Right chest wall port in place Laboratory Laboratory Tests Test 08/08/16 19:10 White Blood Count 8.7 Red Blood Count 3.13 Hemoglobin 8.8 Bedside Hemoglobin 9.2 Hematocrit 27.2 Bedside Hematocrit 27.0 Mean Corpuscular Volume 86.8 Mean Corpuscular Hemoglobin 28.1 Mean Corpuscular Hemoglobin 32.4 Concent Red Cell Distribution Width 20.2 Platelet Count 372 Mean Platelet Volume 7.0 Neutrophils (%) (Auto) 72.7 Lymphocytes (%) (Auto) 11.6 Monocytes (%) (Auto) 10.4 Eosinophils (%) (Auto) 4.8 Basophils (%) (Auto) 0.5 Neutrophils # (Auto) 6.3 Lymphocytes # (Auto) 1.0 Monocytes # (Auto) 0.9 Eosinophils # (Auto) 0.4 Basophils # (Auto) 0.0 CBC Comment DIFF FINAL Differential Comment Prothrombin Time 12.1 Prothromb Time International 1.1 Ratio Activated Partial 31.7 Thromboplast Time Bedside Sodium 139 Sodium Level 139 Bedside Potassium 5.6 Potassium Level 5.6 Bedside Chloride 104 Chloride Level 101 Carbon Dioxide Level 25.6 Anion Gap 12 Bedside Blood Urea Nitrogen 66 Blood Urea Nitrogen 57 Creatinine 9.43 Bedside Creatinine 9.3 Estimat Glomerular Filtration 7 Rate Bedside Glucose 101 Random Glucose 100 Calcium Level 9.7 Total Bilirubin 0.4 Aspartate Amino Transf 28 (AST/SGOT) Alanine Aminotransferase 33 (ALT/SGPT) Alkaline Phosphatase 91 Total Creatine Kinase 255 Troponin I 0.16 Total Protein 7.6 Albumin 2.9 Result Diagram: 08/08/16190908/08/161909 Imaging CT head without contrast: No evidence of intracranial hemorrhage CT chest 08/08: Coronary calcification, small pericardial effusion, groundglass opacities with possible pulmonary edema, gynecomastia CT abdomen pelvis 08/08: Complex cyst right kidney, small stones within the gallbladder, small umbilical hernia containing fat, induration involving right buttock and left inguinal area with possible pilonidal cyst Chest x-ray 08/08: Interstitial infiltrates possibly pulmonary edema Assessment and Plan Assessment and Plan 45-year-old male with: Encephalopathy possibly secondary to hypertensive encephalopathy versus ischemic stroke Left arm weakness/pain Questionable left hemiparesis Hypertensive emergency Diabetes mellitus Suspected pulmonary edema Sickle cell trait End-stage renal disease on hemodialysis Hyperkalemia Elevated troponin H/O Hydradenitis Plan: Neuro: Awaiting MRI brain. Nicardipine drip to control hypertension. Encephalopathy possibly related to hypertension/PRES. started on aspirin. Neurology consult - Dr. Velazquez. Follow neuro status. Cardiovascular: Nicardipine drip to control hypertension. Will add labetalol 20 mg IV every 2 hourly when necessary for systolic blood pressure greater than 160 mmHg. cycle cardiac enzymes. Consult cardiology for elevated troponin and left upper extremity/chest pain. Obtain 2-D echo. EKG with nonspecific ST-T changes. Continue aspirin. Pulmonary: Supplemental O2 as needed. Bronchodilators when necessary for wheezing. GI/liver: Await MRI brain prior to deciding by mouth diet. ID: Hold off on antibiotics at this time. Patient has a history of hydradenitis and has a dressing in the left axilla with no purulent drainage noted currently. May require wound care evaluation. Renal/: Consult nephrology Dr. Carroll for end-stage renal disease requiring hemodialysis. We will initiate Kayexalate 30 g by mouth every 2 hourly 3 doses , calcium gluconate IV piggyback 2 g, 1 amp D50 and 10 units regular insulin IV , 1 amp sodium bicarbonate IV for hyperkalemia. Hemodialysis to be decided by Dr. Carroll following repeat potassium level. Heme: Follow CBC Endocrine: SSI for glycemic control Prophylaxis: PPI/SCDs/subcutaneous heparin. Condition critical. Critical Care Excluding Procedures 50 Minutes Blane Handley MD Aug 08, 2016 21:26
[2016-08-08] MEDS ORDERED: LABETALOL HCL 100 MG/20 ML VIAL IV PUSH STA (21:28)
[2016-08-08] MEDS ORDERED: MISCELLANEOUS NURSING INFORMATION XX SCH (21:30)
[2016-08-08] MEDS ORDERED: CHLORHEXIDINE GLUCONATE 2 % 1 PACK (2 CLOTHS) TOP PRN (21:30)
[2016-08-08] MEDS ORDERED: CALCIUM GLUCONATE INJ 2 GM in DEXTROSE 5% IN WATER 100ML INJ 100 ML IV ONE ×2 (21:30)
[2016-08-08] MEDS ORDERED: LORazepam 2 MG/ML VIAL IV PUSH ONE (21:30)
[2016-08-08] MEDS ORDERED: DEXTROSE 50% IN WATER 50 ML VIAL(D50) IV ONE (21:30)
[2016-08-08] MEDS ORDERED: BISACODYL EC 5 MG TABEC PO PRN (21:30)
[2016-08-08] MEDS ORDERED: SODIUM BICARBONATE 8.4% INJ 50 MEQ/50 ML SYR IV PUSH ONE (21:30)
[2016-08-08] MEDS ORDERED: SENNOSIDES 8.6 MG TAB PO PRN (21:30)
[2016-08-08] MEDS ORDERED: RESP: ALBUTEROL 2.5 MG/IPRATROPIUM 0.5 MG NEB (PRN) INH (21:30)
[2016-08-08] MEDS ORDERED: INSULIN HUMAN REGULAR 1,000 UNITS/10 ML VIAL IV PUSH ONE (21:30)
[2016-08-08] MEDS ORDERED: DEXTROSE 50% IN WATER 50 ML VIAL(D50) IV PRN (22:00)
[2016-08-08] MEDS ORDERED: HEPARIN SODIUM - SQ 10,000 UNITS/ML VIAL SQ SCH (22:00)
[2016-08-08] MEDS ORDERED: GLUCAGON 1 MG/ML VIAL IM/SQ PRN (22:00)
--- NOTE | 2016-08-08 22:02 | RADRPT ---
EXAM DATE/TIME: 08/08/2016 21:28 [facility] COMPARISON: No previous studies available for comparison. INDICATIONS : Altered mental status. MEDICAL HISTORY : Diabetes mellitus type 2. Hypertension. Renal disease, end stage. SURGICAL HISTORY : Port, AV fistula, retina repair. ENCOUNTER: Initial ACUITY: 1 day PAIN SCORE: 0/10 LOCATION: cranial TECHNIQUE: Multiplanar, multisequence MRI of the brain was performed without contrast. FINDINGS: There are mild changes of ischemic demyelination in the periventricular white matter that have progre ssed slightly since the 2012. No recent infarct is identified. There is no mass, hemorrhage or midlin e shift. No hydrocephalus. No abnormal extra-axial fluid collections are present. CONCLUSION: 1. No acute infarct. Mild chronic white matter ischemic changes with slight progression since 2012. Vladimir Singer MD on August 08, 2016 at 21:55 Board Certified Radiologist. This report was verified electronically.
[2016-08-09] VITALS (14 sets, daily range): BP systolic 146–168; BP diastolic 57–87; PULSE 83–97; RESP 17–26; TEMP 98.2–99; O2SAT 93–99
[2016-08-09] MEDS: SODIUM POLYSTYRENE SULFONATE SUSP 15 GM/60 ML CUP PO/NG SCH ×3 (00:06→04:52)
[2016-08-09] MEDS: ACETAMINOPHEN 325 MG TAB PO PRN (02:03)
[2016-08-09] MEDS ORDERED: ALPRAZolam 0.25 MG TAB PO STA (03:45)
[2016-08-09] MEDS: CHLORHEXIDINE GLUCONATE 2 % 1 PACK (2 CLOTHS) TOP SCH ×2 (04:00→23:49)
[2016-08-09 04:40] LABS: AUTOMATED NEUTROPHIL # 8.1 TH/MM3 (1.8-7.7); BASOPHIL # 0.1 TH/MM3 (0-0.2); BASOPHIL % 0.7 % (0.0-2.0); EOSINOPHIL # 0.3 TH/MM3 (0-0.4); EOSINOPHIL % 3.3 % (0.0-4.0); HEMATOCRIT 28.1 % (39.0-51.0); HEMO FLAGS DIFF FINAL; LYMPH % 9.2 % (9.0-44.0); MEAN CELL VOLUME 86.1 FL (80.0-100.0); MEAN CORPUSCULAR HEMOGLOBIN 28.4 PG (27.0-34.0); MONO % 8.4 % (0.0-8.0); NEUT % 78.4 % (16.0-70.0); PLATELET COUNT 396 TH/MM3 (150-450); RED BLOOD COUNT 3.27 MIL/MM3 (4.50-5.90); RED CELL DISTRIBUTION WIDTH 20.2 % (11.6-17.2); WHITE BLOOD COUNT 10.4 TH/MM3 (4.0-11.0)
[2016-08-09 05:10] LABS: ALT (GPT) 33 U/L (12-78); ANION GAP 16 MEQ/L (5-15); BICARBONATE 21.6 MEQ/L (21.0-32.0); BLOOD UREA NITROGEN 58 MG/DL (7-18); CHLORIDE 103 MEQ/L (98-107); GLOMERULAR FILTRATION RATE 7 ML/MIN (>89); MAGNESIUM 2.5 MG/DL (1.5-2.5); POTASSIUM 4.9 MEQ/L (3.5-5.1); SODIUM (NA) 141 MEQ/L (136-145)
[2016-08-09 05:15] LABS: ALKALINE PHOSPHATASE 93 U/L (45-117); AST (GOT) 21 U/L (15-37); TOTAL BILIRUBIN ADULT 0.3 MG/DL (0.2-1.0)
[2016-08-09] MEDS: INSULIN ASPART SUPPLEMENTAL SCALE SQ SCH ×5 (06:00→23:49)
[2016-08-09] MEDS: niCARdipine INJ 25 MG in SODIUM CHLOR 0.9% 250 ML INJ 250 ML IV SCH ×4 (08:13→22:48)
[2016-08-09] MEDS: SODIUM CHLORIDE 0.9% FLUSH 5 ML FLUSH IV FLUSH SCH ×2 (08:14→21:00)
[2016-08-09] MEDS: ONDANSETRON HCL 4 MG/2 ML VIAL IV PRN ×2 (08:14→21:10)
[2016-08-09] MEDS ORDERED: SODIUM CHLOR 0.9% 1000 ML INJ 1,000 ML IV SCH (09:00)
[2016-08-09] MEDS ORDERED: PANTOPRAZOLE SODIUM 40 MG VIAL IV SCH (09:00)
--- NOTE | 2016-08-09 09:30 | MB ---
cc: MARYAN SAUER DATE OF CONSULTATION: 08/09/2016 HISTORY OF PRESENT ILLNESS A 45-year-old right-handed man with a history of insulin dependent diabetes, evidently some renal insufficiency. He has no memory about where he lives or any other of his past history. He did however, ask for Ativan by name. Most of his answers to questions were, he doesn't know. He complains of headache bifrontally, a bit of tenderness in the scalp. He was brought in with confusion, possible stroke alert but was not given TPA as it was not clear if he was actually having a stroke. MRI of the brain shows some white matter changes on the right hemisphere, no acute infarct is seen. No hemorrhage is noted. This was done without contrast. He has been in here in the past for hidradenitis, syncope, dizziness, generalized weakness in the past, shortness of breath, fluid overload. He came in with confusion, change in mental status. They felt maybe he had a little bit of a left facial droop, left-sided arm weakness. He complained of left arm pain. He felt sick driving his car so he pulled over. He had some nausea. CT was negative for bleed. REVIEW OF SYSTEMS He denies any history of hypertension. He did know that he was an insulin dependent diabetic. He denied any hypercholesterolemia, [place], CABG, stent, angioplasty, atrial fibrillation, Coumadin, hepatic or pulmonary disease, thyroid disease, lupus, ulcer, cancer, seizure, stroke. SOCIAL HISTORY He does not know if he smokes or drinks or who he lives with. FAMILY HISTORY He does not know about that either. He was seen by Dr. Moreau, however, in 2012 for end-stage renal disease, change in mental status, syncope, positive blood cultures, he thought he had a metabolic encephalopathy. PAST MEDICAL HISTORY 1. Sickle cell trait. 2. Neuropathy in the legs. 3. Evidently yes for psychiatric, although he says he does not know if he has ever seen a psychiatrist before. 4. He is on dialysis 3 days a week. 5. History of tachycardia. MEDICATION He is on: 1. Calcium. 2. Carvedilol. 3. Doxepin. 4. Finasteride. 5. Hydralazine. 6. Losartan. 7. Novolin. 8. Bactrim. 9. Lortab. 10. Ativan 1 mg p.o. q.6 hours. 11. Zofran. 12. Phenergan. 13. Erythromycin. ALLERGIES REGLAN, SEAFOOD, CONTRAST MEDIA. PHYSICAL EXAMINATION VITAL SIGNS: Afebrile, 97, 24, 146/87. NECK: There were no carotid bruits. HEART: Regular rhythm. I do not detect a murmur. NEURO: Pupils are equal, visual cha are full. Extraocular movements intact without nystagmus. Face is symmetric with normal sensation. Tongue was midline. There is no drift. He had normal strength in right upper and bilateral lower extremities. His left upper extremity has some pain and this was difficult to test. DTRs are absent throughout. Toes are downgoing bilaterally. Pinprick was intact throughout. Speech is fluent. He is not aphasic. He knew the year, did not know the month. He knows he is in the [employer], could not tell me what state he was in. He follows commands well. LABORATORY DATA CBC, his hematocrit is 28, otherwise was essentially normal. He had some slightly elevated paCO2 in April of this past year. Basic metabolic profile was creatinine is 9.5 which is not unusual for him, BUN is 58. LFTs are normal. LDL cholesterol was normal in 2011. B12 was normal at that time. Urine drug screen was negative in 2001. MRI of the brain as noted. He has white matter change on the right, no acute infarct is noted. He did have an MRI in 2012. He did not have that MRI change on the right side at that time. He had a carotid ultrasound in 2012 that was negative. He had echocardiogram done in 2014 that was normal. IMPRESSION Unusual that he does not remember anything. I wonder if it is not psychiatric. We should have psychiatry see him. I do think however, we should also do at this point a LP with the white matter change on the right side, make sure he does not have sort of a [employer] infection. Will check an EEG. I will be following him with you in the hospital. MD LUIGI Reddy/MARINO 7:17 AM 7:46 AM
--- NOTE | 2016-08-09 09:58 | MB ---
cc: MARSHALL LOMELI DO DATE OF CONSULTATION: August 09, 2016 REASON FOR CONSULTATION Elevation of troponins. HISTORY OF PRESENT ILLNESS Maurice Jimenez is a 45-year-old male who presents to [facility] Emergency Room on August 08, 2016 for possible stroke alert. The patient is a poor historian and so history is taken from the chart. Per EMS the patient arrived at their station with the complaints of confusion and altered mental status. It appears that the patient was just driving around and was not sure where he was going. He also felt sick. Supposedly he asked a bystander for help and was told to drive to the nearest police station around the corner. On arrival there, he was confused and had generalized weakness. On arrival to the emergency room he was found to have left-sided facial droop with a left-sided arm weakness. A stroke alert was called and the emergency room discussed with neurology about consideration of TPA but decided against it. In speaking to him this morning he is still very confused. He notes that his first name is Maurice but does not know his last name. He does not know the state that he is in. He does know that he is in the hospital. He did not know that he was on dialysis but he knew he had a left arm fistula but he states this is because the hospital staff had told him. Per the patient he has aches all over is body including his back, arms and legs but denies chest pain. PAST MEDICAL HISTORY 1. Diabetes mellitus. 2. Gastroparesis. 3. Neuropathy in the legs. 4. Hypertension. 5. Anxiety. 6. Anemia secondary to end-stage renal disease, on hemodialysis. 7. End-stage renal disease on hemodialysis. 8. Seizures from until he was around 13 years old. 9. TIA as a teenager. PAST SURGICAL HISTORY 1. Hidradenitis for which he has an extensive amount of surgery. 2. Left arm fistula. 3. Previous peritoneal dialysis tube which is now closed. ALLERGIES 1. CONTRAST MEDIA. 2. REGLAN. 3. SEAFOOD. MEDICATIONS 1. Finasteride 5 mg daily. 2. Zofran as needed. 3. Losartan 100 mg every night. 4. Doxepin 100 mg every night. 5. Ativan 1 mg every 6 hours as needed. 6. Coreg 12.5 mg b.i.d. 7. Hydralazine 50 mg t.i.d. 8. Novolin sliding scale. 9. Lortab 1-2 tablets every 6 hours as needed. 10. Phenergan 25 mg every 6 hours as needed. 11. Bactrim DS 1 tablet b.i.d. SOCIAL HISTORY Denies alcohol, tobacco or drug abuse. FAMILY HISTORY Denies premature coronary artery disease or sudden cardiac within the family. REVIEW OF SYSTEMS 14-systems were reviewed including osteopathic, pertinent positives and negatives above, otherwise negative. PHYSICAL EXAMINATION VITAL SIGNS: Temperature 98.5, heart rate 97, blood pressure 146/87, respirations 24, pulse ox 96% on 2 liters. GENERAL: In general the patient is in no acute distress, alert and awake but not oriented. HEENT: Extraocular muscles intact. Mucous membranes are moist. NECK: Supple. No JVD at 45 degrees. No carotid bruits heard bilaterally. Carotid upstroke is brisk in nature. HEART: Heart is regular rate and rhythm. Positive first and second heart sounds with no murmurs, gallops or rubs. PMI is nondisplaced. LUNGS: Lungs have decreased breath sounds at bilateral bases with no overt wheezes, rales or rhonchi. ABDOMEN: Soft, nontender, nondistended. No organomegaly noted. EXTREMITIES: Show no clubbing, cyanosis or edema. Left arm fistula with positive thrill. NEUROLOGIC: No focal deficits, although the patient is confused. SKIN: Warm, dry and intact. LABORATORY FINDINGS Hemoglobin 9.3, hematocrit 28.1, platelets 396. The potassium is 4.9, BUN of 58, creatinine 9.45, troponin 0.16. Electrocardiogram (August 08, 2016 at 1853) normal sinus rhythm with rare PVC, possible left atrial enlargement, nonspecific ST-T wave changes. IMPRESSION 1. Mild elevation of troponins most likely type 2 in nature secondary to hypertensive emergency. 2. Hypertensive emergency with a blood pressure of 230/108 on arrival. 3. Encephalopathy, possibly secondary to hypertensive emergency versus ischemic stroke, although still confused after blood pressure is somewhat controlled. 4. Questionable left hemiparesis on arrival with left facial droop, left arm and leg weakness. 5. Diabetes mellitus. 6. End-stage renal disease on hemodialysis through a left arm fistula. RECOMMENDATIONS 1. Continue with Cardene drip for blood pressure management. Will attempt to place on oral medications to replace the drip as possible. 2. Mild elevation of troponin, most likely secondary to hypertensive emergency. 3. With a concern for neurological ischemic issues possibly, would not consider further coronary ischemic evaluation at this time. 4. Will check a 2-D echo to look at his overall left ventricular function, cardiac structure and possible valvulopathies. 5. Further recommendations will be made based on hospital course. Thank you for allowing me to see Maurice Jimenez, if there are any questions please do not hesitate to call. Marshall Lomeli DO VGP/TLL /7:41 AM /8:29 AM
[2016-08-09] MEDS: PANTOPRAZOLE SOD 40 MG DELAYED RELEASE TAB PO SCH (10:00)
[2016-08-09 10:57] LABS: FREE T4 0.89 NG/DL (0.76-1.46)
--- NOTE | 2016-08-09 12:08 | MG ---
cc: MARYAN SAUER Lab No: [id number] Date: 08/09/2016 Age: Sex: M INDICATION Change in mental status. DESCRIPTION The recording shows diffuse delta slowing bifrontally predominant almost FIRDA-like at the beginning of the recording at 2.5 Hz with an 8 Hz diffuse background other times. He had a left arm jerk but that just showed some muscle artifact. No focal abnormality was noted. No seizure activity was seen, just some diffuse at times theta slowing to 7 Hz, and really not much more of that bifrontal delta activity was noted. Photic stimulation was performed without significant posterior driving. Hyperventilation was performed without significant change in the background. Some more bifrontal delta slowing was noted at epoch 124 at the end of the recording. IMPRESSION Some delta slowing consistent with a moderate diffuse encephalopathy but no focal abnormalities were noted, no seizure activity was seen. MD LUIGI Reddy/MARISELA /10:43 AM /11:00 AM
[2016-08-09 13:56] LABS: RAPID PLASMA REAGIN SCREEN NON-REACTIVE (NON-REACTVE)
[2016-08-09 14:33] LABS: AMPHETAMINE, URINE NEG (NEG); BARBITURATES, URINE NEG (NEG); COCAINE, URINE NEG (NEG)
--- NOTE | 2016-08-09 14:50 | PD.RAD ---
Post Procedure Progress Note Pre Procedure Diagnosis: (1) Altered mental status Post Procedure Diagnosis: (1) Altered mental status Procedure Date: Aug 09, 2016 Supervising Radiologist: Nemesio Badillo JR Proceduralist/Assist: RT Efren(R), RT Luther(R)(CV) Anesthesia: Local Plan of Activity Patient to Unit: Nursing Unit Patient Condition: Good See PACS Report for procedural detail/treatment Spinal Procedure Lumbar Puncture L3-L4 Fluid Removal (CCs): 12 Fluid Description: Clear Puncture Time: 14:38 Findings: Opening pressure: 16 cm H20 Jr. Justino,Nemesio Sparrow MD Aug 09, 2016 14:50
--- NOTE | 2016-08-09 15:04 | EKG ---
Date Performed: 08/08/2016 Time Performed: 18:24:42 PTAGE: 45 years EKG: Sinus rhythm POSSIBLE LEFT ATRIAL ENLARGEMENT BORDERLINE ECG Compared to prior tracing no significant change PREVIOUS TRACING : 05/26/2016 10.15 DOCTOR: Zara Otoole Interpretating Date/Time 08/09/2016 14:56:27
--- NOTE | 2016-08-09 15:26 | EKG ---
Date Performed: 08/08/2016 Time Performed: 18:53:55 PTAGE: 45 years EKG: Sinus rhythm WITH OCCASIONAL VENTRICULAR PREMATURE COMPLEXES POSSIBLE LEFT ATRIAL ENLARGEMENT BORDERLINE ECG Comp ared to the PREVIOUS TRACING there has been a rightward shift in the axis and the patient now has no nspecific inferior T wave changes. The development of myocardial ischemia since the last EKG cannot b e excluded and clinical correlation will be important. PREVIOUS TRACIN08/08/16 DOCTOR: Zara Otoole Interpretating Date/Time 08/09/2016 15:25:52
--- NOTE | 2016-08-09 16:04 | HHI.CCPN ---
Subjective Remarks/Hospital Course Hospital Course: Patient is a 45 year old male who presents to ER for evaluation of acute cva. As per EMS, patient arrived at their station with complaints of confusion and alerted mental status. Reports that all the information they could obtain from him was that he was a dialysis patient. Reports that upon arrival to ER at 6: 48 PM, patient began to have left sided facial droop with left sided arm weakness. Patient is not able to provide history of present illness this time. patient does have a left sided av fistula. After patient returns to the ER, reports that his left arm began to hurt him after EMS lifted him onto the stretcher. Reports that he has been having increased pain to his left arm possibly from being moved. Reports that he was driving his car today - unsure where he was going but reports that he felt sick so he pulled his car over. Reports that he felt nauseous and sick to his stomach , reports that he did ask a bystander for help and was told to drive to the nearest police station around the corner. Patient reports that when he arrived there, he was confused and was having generalized weakness as well as abdominal pain. Patient was evaluated in the ER, stroke alert was called and Dr. Caldwell from ER discussed the case with neurology Dr. Velazquez. Head CT was negative for bleed. Patient was noted to have systolic blood pressure to 20s. He had barely discernible left upper extremity weakness which was also felt to be secondary to pain on that side. Decision was made not to administer TPA as the diagnosis of stroke was not certain. Patient was confused with elevated blood pressure and was initiated on a nicardipine drip. He underwent a CT of the chest abdomen pelvis as he was also complaining of abdominal pain and left-sided chest wall pain with question of infiltrates on his chest x-ray. He did not have any fever or leukocytosis. Patient was accepted for admission by critical care medicine service. When I evaluated the patient he was laying in the ER stretcher. He knew his name however did not remember any further details regarding him being on dialysis or where he lived or what his medical problems were. Subjective: 08/09: continues to be mildly confused. oriented x 3, but states it takes him longer to answer questions, and he doesn't remember anything about how he got to the hospital yesterday. Objective Vital Signs Date Time Temp Pulse Resp B/P Pulse Ox O2 Delivery O2 Flow Rate FiO2 08/09/16 12:00 88 08/09/16 12:00 98.6 18 153/66 97 08/08/16 22:21 Nasal Cannula 2 Result Diagram: 08/09/1642108/09/16421 Objective Remarks GENERAL: Patient confused,alert, oriented x 3. SKIN: Warm and dry. HEAD: Atraumatic. Normocephalic. EYES: Pupils equal and round. No scleral icterus. No injection or drainage. ENT: No nasal bleeding or discharge. Mucous membranes pink and moist. NECK: Trachea midline. No JVD. CARDIOVASCULAR: Regular rate and rhythm. No murmur appreciated. RESPIRATORY: No accessory muscle use. Clear to auscultation. Breath sounds equal bilaterally. GASTROINTESTINAL: Abdomen soft, nondistended. no guarding. MUSCULOSKELETAL: No obvious deformities. No clubbing. No cyanosis. No edema. left AVF with palpable thrill. NEUROLOGICAL: Awake and alert. Normal speech, very mild left facial droop, LUE 4 +/5, LLE 4+/5. all other extremities CRUZITO 5/5. sensation grossly intact. A/P Assessment and Plan Assessment: 45-year-old male with ESRD now with acute encephalopathy and hypertensive emergency. will work towards controlling BP and frequent neuro checks. appreciate neurology and nephrology input. Plan: Neuro: Encephalopathy possibly secondary to hypertensive encephalopathy Left arm weakness/pain - MRI with slight right-sided cortical enhancement. - Neuro consulted: Dr. Chacon - LP pending - EEG generalized slowing - frequent neuro checks - possibly hypertensive encephalopathy. Cardiovascular: Hypertensive emergency Elevated troponin - Nicardipine drip to control hypertension. goal SBP < 160 - add back home meds: Losartan 100mg daily Carvedilol 12.5mg BID Hydralazine 50mg po TID - trend troponins - cardiac consult: Dr. Bruner - ASA - hydralazine and labetalol prn. Pulmonary: Suspected pulmonary edema - Supplemental O2 as needed for goal spo2 > 90%. - Bronchodilators when necessary for wheezing. - possible HD today or tomorrow. GI/liver: Hyperkalemia - nursing bedside swallow assessment, if he passes, advance to clear liquid diet , then nephro as tolerated. ID: - Hold off on antibiotics at this time. - without nuchal rigidity, low concern for bacterial meningitis. will await LP results. Renal/: End-stage renal disease on hemodialysis -Consult nephrology Dr. Carroll for end-stage renal disease requiring hemodialysis. Heme: Sickle cell trait - Follow CBC Endocrine: Diabetes mellitus - SSI for glycemic control Prophylaxis: PPI/SCDs/subcutaneous heparin. Dispo: remain in the ICU. Luan Gardner MD Aug 09, 2016 16:04 Endocrine: Diabetes mellitus - SSI for glycemic control Prophylaxis: PPI/SCDs/subcutaneous heparin. Dispo: remain in the ICU. Luan Gardner MD Aug 09, 2016 16:04
[2016-08-09] MEDS: FINASTERIDE 5 MG TAB PO SCH (16:07)
[2016-08-09] MEDS: CARVEDILOL 12.5 MG TAB PO SCH ×2 (16:07→21:05)
[2016-08-09] MEDS: LOSARTAN 50 MG TAB PO SCH ×2 (16:07→21:05)
--- NOTE | 2016-08-09 16:08 | RADRPT ---
EXAM DATE/TIME: 08/09/2016 15:34 [facility] COMPARISON: US CAROTID ARTERIES, November 27, 2012, 9:01. INDICATIONS : Cerebrovascular accident. MEDICAL HISTORY : Hypertension. Gastroparesis. Neuropathy, legs. Seizures. Tachycardia. Asthma. Dyspena. Renal disease and failure. Vertebrae fracture. Diabetes. Sickle cell trait. Anemia. Depress ion. Anxiety. SURGICAL HISTORY : Right eye retina repair. AV shunt. Multiple abdominal surgeries due to po or sweat glands. Dialysis. Teckchoff tube. Blood transfusions. ENCOUNTER: Initial ACUITY: 1 day PAIN SCORE: 0/10 LOCATION: Bilateral neck PEAK SYSTOLIC VELOCITIES (cm/sec): ICA/CCA RATIO: Right: 0.7 Left: 1.1 ICA: Right: 98 Left: 127 CCA: Right: 146 Left: 112 ECA: Right: 100 Left: 145 VERTEBRAL: Right: 79 antegrade Left: 53 antegrade Elevated flow velocities and ICA/CCA ratios have been found to correlate with increased degrees of vessel stenosis, calculated as percentage of diameter relative to a normal segment of distal ICA/CCA FINDINGS: RIGHT CAROTID: There is no evidence for a hemodynamically significant carotid stenosis. Minimal int imal hyperplasia is present with scattered calcific plaque. LEFT CAROTID: There is no evidence for a hemodynamically significant carotid stenosis. Minimal inti mal hyperplasia is present with scattered calcific plaque. VERTEBRAL ARTERIES: Flow is antegrade in both vertebral arteries. MISCELLANEOUS: There are no ancillary masses or adenopathy. CONCLUSION: Negative examination for a hemodynamically significant carotid stenosis. Bill Gotti MD FACR Board Certified Radiologist. This report was verified electronically.
--- NOTE | 2016-08-09 16:13 | EC ---
Study Study Date:08/09/2016 STUDY CONCLUSIONS SUMMARY - Left ventricle: The cavity size was mildly dilated. Wall thickness was increased in a pattern of mild LVH. There was concentric hypertrophy. Systolic function was vigorous. The estimated ejection fraction was in the range of 75% to 85%. Wall motion was normal; there were no regional wall motion abnormalities. The study is not technically sufficient to allow evaluation of LV diastolic function. - Mitral valve: Severely calcified annulus. Moderately thickened leaflets, posterior greater than anterior. The findings are consistent with mild to moderate stenosis. Valve area by continuity equation (using LVOT flow): 2.42cm^2. - Left atrium: The atrium was mildly dilated. - Tricuspid valve: Mild regurgitation. - Pulmonary arteries: PA peak pressure: 51mm Hg (S). If LV function is below 40, please consider prescribing an ACEI or ARB or document rationale for non-use. PROCEDURE DATA STUDY STATUS: Elective. Procedure: Transthoracic echocardiography. Image quality was good. Scanning was performed from the parasternal, apical, and subcostal acoustic windows. Study completion: The patient tolerated the procedure well. Transthoracic echocardiography. M-mode, complete 2D, complete spectral Doppler, and color Doppler. Height: Height: 70in. Weight: Weight: 205.6lb. Body mass index: BMI: 29.6kg/m^2. Body surface area: BSA: 2.11m^2. Patient status: Inpatient. CARDIAC ANATOMY LEFT VENTRICLE: The cavity size was mildly dilated. Wall thickness was increased in a pattern of mild LVH. There was concentric hypertrophy. Systolic function was vigorous. The estimated ejection fraction was in the range of 75% to 85%. Wall motion was normal; there were no regional wall motion abnormalities. The study is not technically sufficient to allow evaluation of LV diastolic function. AORTIC VALVE: Trileaflet. Doppler: There was no stenosis. No significant regurgitation. Valve area: 2.88cm^2(VTI). Indexed valve area: 1.36cm^2/m^2 (VTI). Valve area: 2.35cm^2 (Vmax). Indexed valve area: 1.11cm^2/m^2 (Vmax). Mean gradient: 8mm Hg (S). Peak gradient: 16mm Hg (S). MITRAL VALVE: Severely calcified annulus. Moderately thickened leaflets, posterior greater than anterior. Doppler: The findings are consistent with mild to moderate stenosis (MVA by pressure half-time is around 2.5, but with an elevated mean mitral gradient of 9). Trace to mild regurgitation. Valve area by pressure half-time: 3.01cm^2. Indexed valve area by pressure half-time: 1.43cm^2/m^2. Valve area by continuity equation (using LVOT flow): 2.42cm^2. Indexed valve area by continuity equation (using LVOT flow): 1.15cm^2/m^2. Mean gradient: 9mm Hg (D). Peak gradient: 17mm Hg (D). LEFT ATRIUM: The atrium was mildly dilated. PULMONIC VALVE: Not well visualized. TRICUSPID VALVE: The valve appears to be grossly normal. Doppler: There was no evidence for stenosis. Mild regurgitation. PERICARDIUM: There was no pericardial effusion. Patient weight: 205.6lb _Ejection fraction:_ 65-75% _Fractional shortening:_ 32% up to 5Kg 5-11.5Kg 11.6-22.9Kg 23-45Kg 45-57Kg Aortic Root 7-13 <17 13-22 17-27 17-27 LA diam 6-13 <23 24-38 33-47 37-40 RVID 10-17 7-15 7-15 7-18 8-17 LVIDd 12-22 <32 24-38 33-47 37-40 LVPW 2-4 3-6 5-7 6-8 7-8 IVS 2-4 3-6 5-7 6-8 7-8 BASIC MEASUREMENTS ADULT NORMAL Left ventricle LV internal dimension, ED, chordal *59.4 mm 43-52 level, PLAX LV internal dimension, ES, chordal 34.6 mm 23-38 level, PLAX Fractional shortening, chordal level, 42 % >29 PLAX LV posterior wall thickness, ED 11.3 mm IVS/LVPW ratio, ED 0.99 <1.3 Ventricular septum Septal thickness, ED 11.2 mm Aortic valve Leaflet separation 24 mm 15-26 Aorta Root diameter, ED 33 mm Left atrium Anterior-posterior dimension 43 mm Anterior-posterior dimension index 2.04 cm/m^2 <2.2 BASIC MEASUREMENTS ADULT NORMAL Aortic valve Leaflet separation 24 mm 15-26 DOPPLER MEASUREMENTS ADULT NORMAL Main pulmonary artery Pressure, S *51 mm Hg =30 Aortic valve Peak velocity, S 200 cm/s Mean velocity, S 130 cm/s VTI, S 40 cm Mean gradient, S 8 mm Hg Peak gradient, S 16 mm Hg Valve area, VTI 2.88 cm^2 Valve area index, VTI 1.36 cm^2/m^2 Valve area, Vmax 2.35 cm^2 Valve area index, Vmax 1.11 cm^2/m^2 Mitral valve Peak E-wave velocity 185 cm/s Peak A-wave velocity 143 cm/s Mean velocity, D 139 cm/s Deceleration time *257 ms 150-230 Pressure half-time 73 ms Mean gradient, D 9 mm Hg Peak gradient, D 17 mm Hg Peak E/A ratio 1.3 Valve area, pressure half-time 3.01 cm^2 Valve area index, pressure half-time 1.43 cm^2/m^2 Valve area, LVOT continuity 2.42 cm^2 Valve area index, LVOT continuity 1.15 cm^2/m^2 Tricuspid valve Regurgitant peak velocity 339 cm/s Peak RV-RA gradient, S 46 mm Hg Maximal regurgitant velocity 339 cm/s Systemic veins Estimated CVP 10 mm Hg Right ventricle RV pressure, S *56 mm Hg <30 Pulmonic valve Peak velocity, S 108 cm/s LEGEND: Mean values are shown as u=mean value. Asterisk (*) hernandez values outside specified normal range. Prepared and signed by Marshall Bruner [id number]
--- NOTE | 2016-08-09 16:14 | RADRPT ---
EXAM DATE/TIME: 08/09/2016 12:45 [facility] COMPARISON: No previous studies available for comparison. INDICATIONS : Patient presents with altered mental status in need of lumbar puncture to rule out encephalitis. MEDICAL HISTORY : Sickle cell trait Hx tachy Dialysis 3 days a week Bilat leg neuropathy Gastroparesis HTN Renal failure SURGICAL HISTORY : Abdominal surgery Left arm fistula Tenkchoff tube for PD ENCOUNTER: Initial ACUITY: 1 day PAIN SCORE: 0/10 LOCATION: N/A LUMBAR PUNCTURE TIME: 14:33 hours FLUORO TIME: 2.1 minutes IMAGE SERIES: 0 ACCESS LEVEL: L3-4 OPENING PRESSURE: 26 cm of water CLOSING PRESSURE: Not requested. FLUID: 12.5 cc of clear CSF was collected and sent to the laboratory for analysis. PROCEDURE : 1. Fluoroscopic guided lumbar puncture. 2. Recording of opening pressure. The risks, benefits and alternatives to the procedure were explained and verbal and written consent w as obtained. The site was prepped in sterile fashion. Full sterile technique was used, including ca p, mask, sterile gloves and gown and a large sterile sheet. Hand hygiene and 2% chlorhexidine and/or betadine/alcohol prep was utilized per protocol for cutaneous antisepsis. The skin and subcutaneous tissues were infiltrated with local anesthetic solution. With fluoroscopic guidance the lumbar thecal sac was punctured at the above level described above and the opening pressure was recorded. The above described fluid was removed without difficulty. The patient tolerated the procedure well and there were no complications. CONCLUSION: Uncomplicated fluoroscopically guided lumbar puncture. Opening pressure 26 cm H2O. Nemesio Badillo Jr., MD on August 09, 2016 at 16:09 Board Certified Radiologist. This report was verified electronically.
[2016-08-09 16:26] LABS: CSF NEUTROPHILS 32 %; GROSS BLOOD TUBE #1 TRACE (0); GROSS BLOOD TUBE #2 TRACE (0); GROSS BLOOD TUBE #3 0 (0); GROSS BLOOD TUBE #4 TRACE (0); SUPERNATE COLOR TUBE #1 CLEAR (CLEAR); SUPERNATE COLOR TUBE #2 CLEAR (CLEAR); SUPERNATE COLOR TUBE #3 CLEAR (CLEAR); SUPERNATE COLOR TUBE #4 CLEAR (CLEAR); VOLUME TUBE # 1 2.5 ML; VOLUME TUBE # 2 2.5 ML; VOLUME TUBE # 3 2.5 ML; WBC TUBE #1 5 /MM3 (0-10)
[2016-08-09 16:27] LABS: CSF EOSINOPHILS 2 %; CSF LYMPHOCYTES 30 %; CSF MONOCYTES 36 %
[2016-08-09] MEDS: hydrALAZINE HCL 50 MG TAB PO SCH (17:51)
[2016-08-09] MEDS: HYDROmorphone HCL PF 1 MG/ML VIAL IV PUSH PRN ×2 (18:30→22:49)
[2016-08-09] MEDS ORDERED: LOSARTAN 50 MG TAB PO SCH (21:00)
[2016-08-09] MEDS ORDERED: CARVEDILOL 12.5 MG TAB PO SCH (21:00)
[2016-08-09] MEDS ORDERED: SODIUM CHLOR 0.9% 1000 ML INJ 1,000 ML IV PRN ×2 (22:56)
[2016-08-09] MEDS ORDERED: SODIUM CHLORIDE 0.9% FLUSH 5 ML FLUSH IVF PRN (23:00)
[2016-08-09] MEDS ORDERED: ALBUMIN HUMAN 25% 25 GM/100 ML BAGP IV PRN (23:00)
[2016-08-09] MEDS ORDERED: HEPARIN SODIUM - IV 10,000 UNITS/10 ML VIAL IVF PRN (23:00)
[2016-08-09] MEDS ORDERED: NITROGLYCERIN 0.4 MG SL 25 TABS/BTL SL PRN (23:00)
[2016-08-09] MEDS ORDERED: MANNITOL 12.5 GM/50 ML VIAL IV PRN (23:00)
[2016-08-09] MEDS ORDERED: ONDANSETRON HCL 4 MG/2 ML VIAL IV PRN (23:00)
[2016-08-09] MEDS ORDERED: cloNIDine HCL 0.1 MG TAB PO PRN (23:00)
[2016-08-09] MEDS ORDERED: ACETAMINOPHEN 325 MG TAB PO PRN (23:00)
[2016-08-09] MEDS ORDERED: GENTAMICIN SULFATE (DIALYSIS USE ONLY) 20 MG/2 ML VIAL IV PRN (23:00)
[2016-08-09] MEDS ORDERED: HEPARIN SODIUM - IV 10,000 UNITS/10 ML VIAL PRN (23:00)
[2016-08-09] MEDS ORDERED: diphenhydrAMINE HCL 25 MG CAP PO PRN (23:00)
[2016-08-09 23:12] LABS: LACTIC ACID,CSF 1.4 MMOL/L (0.0-3.0)
[2016-08-09] MEDS: LORazepam 0.5 MG TAB PO PRN (23:48)
[2016-08-10] VITALS (14 sets, daily range): BP systolic 143–175; BP diastolic 67–79; PULSE 80–103; RESP 20–30; TEMP 98.6–101.7; O2SAT 90–97
[2016-08-10] MEDS: niCARdipine INJ 25 MG in SODIUM CHLOR 0.9% 250 ML INJ 250 ML IV SCH ×4 (01:15→16:46)
[2016-08-10] MEDS: HYDROmorphone HCL PF 1 MG/ML VIAL IV PUSH PRN ×4 (03:53→21:19)
[2016-08-10] MEDS: ONDANSETRON HCL 4 MG/2 ML VIAL IV PRN (03:53)
[2016-08-10] MEDS: SODIUM CHLORIDE 0.9% FLUSH 5 ML FLUSH IV FLUSH PRN ×2 (03:54→11:40)
[2016-08-10] MEDS: INSULIN ASPART SUPPLEMENTAL SCALE SQ SCH ×3 (04:55→17:49)
[2016-08-10 05:56] LABS: HEMATOCRIT 27.2 % (39.0-51.0); MEAN CORPUSCULAR HGB CONC 31.8 % (32.0-36.0); PLATELET COUNT 398 TH/MM3 (150-450); RED BLOOD COUNT 3.09 MIL/MM3 (4.50-5.90); RED CELL DISTRIBUTION WIDTH 20.4 % (11.6-17.2); REVIEW FLAG FINAL; WHITE BLOOD COUNT 12.9 TH/MM3 (4.0-11.0)
[2016-08-10 06:25] LABS: BICARBONATE 23.2 MEQ/L (21.0-32.0); POTASSIUM 5.8 MEQ/L (3.5-5.1)
[2016-08-10] MEDS: FINASTERIDE 5 MG TAB PO SCH (07:39)
[2016-08-10] MEDS: PANTOPRAZOLE SOD 40 MG DELAYED RELEASE TAB PO SCH (07:39)
[2016-08-10] MEDS: CARVEDILOL 12.5 MG TAB PO SCH ×2 (07:39→20:20)
[2016-08-10] MEDS: VITAMIN B CMPLX/VITC/FOLIC AC CAP PO SCH (07:39)
[2016-08-10] MEDS: hydrALAZINE HCL 50 MG TAB PO SCH ×3 (07:39→17:22)
[2016-08-10] MEDS: SODIUM CHLORIDE 0.9% FLUSH 5 ML FLUSH IV FLUSH SCH ×2 (07:40→20:21)
[2016-08-10] MEDS: SEVELAMER CARBONATE 800 MG TAB PO SCH ×3 (07:40→17:22)
[2016-08-10] MEDS ORDERED: PROCHLORPERAZINE INJ 10 MG/2 ML VIAL IVS ONE (08:00)
--- NOTE | 2016-08-10 08:23 | HHI.PR ---
Subjective Remarks mills n/v this am sob also Objective Vital Signs Date Time Temp Pulse Resp B/P Pulse Ox O2 Delivery O2 Flow Rate FiO2 08/10/16 06:00 98 08/10/16 04:32 20 08/10/16 04:00 98.9 89 24 160/71 91 08/10/16 04:00 89 08/10/16 02:00 85 08/10/16 00:00 98.6 88 25 175/79 94 08/10/16 00:00 88 08/09/16 22:00 83 08/09/16 20:00 98.9 84 17 148/57 93 08/09/16 20:00 84 08/09/16 19:52 95 21 08/09/16 18:00 91 08/09/16 16:00 99.0 88 21 168/77 97 08/09/16 16:00 88 08/09/16 14:00 92 08/09/16 12:00 88 08/09/16 12:00 98.6 88 18 153/66 97 08/09/16 10:00 87 08/09/16 08:45 97 I/O 08/09/16 08/09/16 08/09/16 08/10/16 08/10/16 08/10/16 07:00 15:00 23:00 07:00 15:00 23:00 Intake Total 732 ml 1223 ml 486 ml 563 ml Output Total 250 ml 350 ml Balance 732 ml 1223 ml 236 ml 213 ml Intake Oral 480 ml 350 ml IV Total 252 ml 873 ml 486 ml 563 ml Output Urine Total 250 ml 350 ml # Voids 4 3 # Bowel Movements 4 2 Result Diagram: 08/10/16 0445 08/10/16 0445 Objective Remarks ox3 now memory back 5/5 bue and ble Assessment and Plan Assessment and Plan imp lp neg x prot inc 102 lives with he states sob now and inc rr labs neg eeg slow only mri wm change right us neg unclear why so high prot csf neuro feliciano much better i think dewayne a post lp mills now and plan is too lay flat if not in chf and check abg and cxr hd today probably will be fine neurowise Jaspreet Chacon MD Aug 10, 2016 08:23
[2016-08-10] MEDS: LORazepam 0.5 MG TAB PO PRN (08:25)
[2016-08-10 08:37] LABS: BLOOD, URINE TRACE (NEG); GLUCOSE,URINE TRACE mg/dL (NEG); KETONE, URINE NEG (NEG); NITRITE,URINE NEG (NEG); PH, URINE 8.5 (5.0-8.5); SQUAMOUS EPITHELIAL CELL URINE 2 /hpf (0-5); URINE COLOR LIGHT-YELLOW (YELLW/STRAW)
[2016-08-10 08:38] LABS: COMMENT (UR) CATH-CULT NOT IND; CULTURE IF INDICATED CATH CULTURE NOT IND
--- NOTE | 2016-08-10 08:50 | PD.ID.CON ---
History of Present Illness Service ID Consult Requested By Dr.Greene SWETHA ARMAS Reason for Consult Evaluation and Mment of possible meningitis vs metabolic encephalopathy, abnormal LP. Primary Care Physician Blair Richardson MD Diagnoses: History of Present Illness is a 45 y.o AAM with PMHx of ESRD on HD Tues, Thurs, Sat, Hidradenitis suppuritiva who has recd IV antibiotics in past, PORT in place for IV access issues, prior h/o TIA, prior h/o seizures. Patient was reportedly behaving differently over last 24 hours prior to admission. says he called his sister in law instead of her and that he drove himself to a police station and lay on their floor. Patient was admitted to the ED for evaluation of acute CVA. As per records apparently EMS, patient arrived at police station with complaints of confusion and alerted mental status. Only information patient was able to provide was that he was a dialysis patient. Reportedly, upon arrival to ER at 6:48 PM, patient began to have left sided facial droop with left sided arm weakness. Reportedly, patient has been complaining of left arm pain since admission. Patient reported earlier on admission to others that he was driving his car today - unsure where he was going but reports that he felt sick so he pulled his car over. Also h/o nausea ? vomiting. Patient was evaluated in the ER, stroke alert was called and Dr. Caldwell from ER discussed the case with neurology Dr. Velazquez. Head CT was negative for bleed. Patient was noted to have systolic blood pressure 220s. He had barely discernible left upper extremity weakness which was also felt to be secondary to pain on that side but of note patient has left side hidradenitis with adhesions. Decision was made not to administer TPA as the diagnosis of stroke was not certain. Patient was confused with elevated blood pressure and was initiated on a nicardipine drip. He underwent a CT of the chest abdomen pelvis as he was also complaining of abdominal pain and left-sided chest wall pain with question of infiltrates on his chest x-ray. He did not have any fever or leukocytosis. Patient was accepted for admission by critical care medicine service. Reportedly on initial evaluation patient was not oriented and confused. Patient underwent an LP yday which shows elevation of total protein but other parameters normal range with normal WBC and glucose. Patient did not fever, neck stiffness and over the course of the day was more clearer mentally. He was thought to be low probability for LP and likely AMS from metabolic encephalopathy. It was decided not to administer any antibiotics and observe him clinically. He is scheduled for Hemodialysis today and await reeval of neuro status after HD session. Nephrology has also been consulted. ID is consulted for evaluation of possible meningoencephalitis. Review of Systems ROS Limitations: Altered Mental Status Past Family Social History Allergies: Coded Allergies: Contrast Media (Unverified Allergy, Severe, nausea/vomiting, 08/08/16) causes n/v HAD TEST TODAY 11/15/11 TOOK BENADRYL AND DID OK. Reglan (Verified Allergy, Severe, ANXIETY, 08/08/16) Seafood (Verified Allergy, Severe, SWELLING-CANT BREATH-HIVES, 08/08/16) Past Medical History Anemia Anxiety Depression Tachycardia Cardiovascular problems History of chest pain Hidradenitis suppurativa Prior history of left axillary abscess status post IV antibiotics used to see Dr. Herr in [facility] End-stage renal disease on hemodialysis Tuesday Gastroparesis Diabetes mellitus History of headaches History of behavioral issues per . Port placement for IV access issues. HTN Diabetic neuropathy History of seizure disorder per Sickle cell trait PNEUMOCCOCAL Vaccine (Year): 1 Multiple skin surgeries due to hidradenitis suppurativa Left upper arm AV fistula placement Past Surgical History Port placement for IV access issues Left upper extremity AV fistula Multiple dermatological procedures for hidradenitis suppuritiva. Incision and drainage of abscess left arm. ?PD catheter. Reported Medications Reported Meds & Active Scripts Active Erythromycin Base 250 Mg Tab 250 Mg PO TIDAC Phenergan (Promethazine HCl) 25 Mg Tab 25 Mg PO Q6H PRN Zofran Odt (Ondansetron Odt) 4 Mg Tab 4 Mg SL Q6HR PRN Ativan (Lorazepam) 1 Mg Tab 1 Mg PO Q6H PRN Lortab (Hydrocodone-Acetaminophen) 5-325 Mg Tab 1-2 Tab PO Q6H PRN Bactrim DS (Sulfamethoxazole-Trimethoprim) 800-160 Mg Tab 1 Tab PO BID Reported Nephro-Adan Rx (Vitamin B Cmplx/Vit C/Folic AC) 1 Tab 1 Tab PO Novolin 70-30 Inj (Insulin Human Isoph/Insulin Regular) 1,000 Unit/10 Ml Vial 1 Units SQ Losartan (Losartan Potassium) 100 Mg Tab 100 Mg PO HS Hydralazine (Hydralazine HCl) 50 Mg Tab 50 Mg PO TID Take with a meal Finasteride 5 Mg Tab 5 Mg PO DAILY Do not crush. Doxepin (Doxepin HCl) 100 Mg Cap 100 Mg PO HS Carvedilol 12.5 Mg Tab 12.5 Mg PO BID Calcium Acetate (Calcium Acetate (Phosphate Bin) 667 Mg Cap Active Ordered Medications Current Medications Medications (Trade) Dose Ordered Sig/Bulmaro Route Start Time Stop Time Status Last Admin (Cardene Inj/NS 250 ml Inj) 260 ml @ 0 mls/hr TITRATE IV 08/08/16 19:45 08/10/16 08:41 (NS Flush) 2 ml UNSCH PRN IV FLUSH 08/08/16 21:30 08/10/16 11:40 (NS Flush) 2 ml BID IV FLUSH 08/09/16 09:00 08/10/16 07:40 (Tylenol) 650 mg Q6H PRN PO 08/08/16 21:30 08/09/16 02:03 (Zofran Inj) 4 mg Q6H PRN IV 08/08/16 21:30 08/10/16 03:53 (Dulcolax Ec) 10 mg DAILY PRN PO 08/08/16 21:30 (Senokot) 17.2 mg Q12H PRN PO 08/08/16 21:30 Miscellaneous Information 1 Q361D XX 08/08/16 21:30 (Chlorhexidine 2% Cloth) 3 pack Taper DAILY@04 TOP 08/09/16 04:00 08/05/17 03:59 08/09/16 23:49 (Chlorhexidine 2% Cloth) 3 pack UNSCH PRN TOP 08/08/16 21:30 (Trandate Inj) 20 mg Q2HR PRN IV PUSH 08/08/16 21:30 (NovoLOG SUPPLEMENTAL SCALE) 1 Q6HR SQ 08/09/16 00:00 (D50w (Vial) Inj) 25 ml UNSCH PRN IV 08/08/16 22:00 08/09/16 00:23 (Glucagon Inj) 1 mg UNSCH PRN IM/SQ 08/08/16 22:00 (Protonix) 40 mg DAILY PO 08/09/16 10:00 08/10/16 07:39 (Proscar) 5 mg DAILY PO 08/09/16 16:00 08/10/16 07:39 (Apresoline) 50 mg TID PO 08/09/16 18:00 08/10/16 07:39 (Coreg) 12.5 mg BID PO 08/09/16 16:00 08/10/16 07:39 (Cozaar) 100 mg HS PO 08/09/16 16:00 08/09/16 21:05 (Apresoline Inj) 10 mg Q30M PRN IV PUSH 08/09/16 16:00 08/10/16 11:40 (Dilaudid Pf Inj) 0.5 mg Q4H PRN IV PUSH 08/09/16 18:15 08/10/16 08:25 (Ativan) 0.5 mg Q6H PRN PO 08/09/16 23:00 08/10/16 08:25 (Renvela) 1,600 mg TIDAC PO 08/10/16 08:00 08/10/16 07:40 Vitamin B Complex/ Vit C/Folic Acid 1 cap 1 cap DAILY PO 08/10/16 09:00 08/10/16 07:39 (NS 1000 ml Inj) 1,000 ml @ 0 mls/hr Q0M PRN IV 08/09/16 22:56 Heparin Sodium (Porcine) 8000 units 8,000 units UNSCH PRN IVF 08/09/16 23:00 Sodium Chloride 1,000 ml @ 200 mls/hr Q5H PRN IV 08/09/16 22:56 (NS 1000 ml Inj) 1,000 ml @ 0 mls/hr Q0M PRN IV 08/09/16 22:56 (Mannitol Inj) 12.5 gm UNSCH PRN IV 08/09/16 23:00 (Albumin 25% Inj) 25 gm UNSCH PRN IV 08/09/16 23:00 (NS Flush) 5 ml UNSCH PRN IVF 08/09/16 23:00 (Heparin Inj) UNSCH PRN .XX 08/09/16 23:00 (Gentamicin (Dialysis) Inj) 20 mg UNSCH PRN IV 08/09/16 23:00 (Zofran Inj) 4 mg UNSCH PRN IV 08/09/16 23:00 (Tylenol) 650 mg UNSCH PRN PO 08/09/16 23:00 (Benadryl) 25 mg UNSCH PRN PO 08/09/16 23:00 (Nitrostat Sl) 0.4 mg UNSCH PRN SL 08/09/16 23:00 (Catapres) 0.1 mg UNSCH PRN PO 08/09/16 23:00 (Epogen Inj) 10,000 units UNSCH PRN IV 08/09/16 23:00 (Gelfoam 12 Mm/7 Mm Top) 1 foam UNSCH PRN TOP 08/09/16 23:00 Family History Could not be obtained Social History Discussed with patient's she denies any history of alcohol, smoking or drug abuse. Physical Exam Vital Signs Vital Signs Date Time Temp Pulse Resp B/P Pulse Ox O2 Delivery O2 Flow Rate FiO2 08/10/16 06:00 98 08/10/16 04:32 20 08/10/16 04:00 98.9 89 24 160/71 91 08/10/16 04:00 89 08/10/16 02:00 85 08/10/16 00:00 98.6 88 25 175/79 94 08/10/16 00:00 88 08/09/16 22:00 83 08/09/16 20:00 98.9 84 17 148/57 93 08/09/16 20:00 84 08/09/16 19:52 95 21 08/09/16 18:00 91 08/09/16 16:00 99.0 88 21 168/77 97 08/09/16 16:00 88 08/09/16 14:00 92 08/09/16 12:00 88 08/09/16 12:00 98.6 88 18 153/66 97 08/09/16 10:00 87 Physical Exam GENERAL: This is a well-nourished, well-developed patient, in no apparent distress. SKIN: No rashes, ecchymoses or lesions. Cool and dry. HEAD: Atraumatic. Normocephalic. No temporal or scalp tenderness. EYES: Pupils equal round and reactive. Extraocular motions intact. No scleral icterus. No injection or drainage. ENT: Nose without bleeding, purulent drainage or septal hematoma. Throat without erythema, tonsillar hypertrophy or exudate. Uvula midline. Airway patent. NECK: Trachea midline. Supple, nontender, no meningeal signs. CARDIOVASCULAR: HS audible. No murmur appreciated. RESPIRATORY: Clear to auscultation. Breath sounds equal bilaterally. GASTROINTESTINAL: Abdomen soft, non-tender, nondistended. MUSCULOSKELETAL: Extremities without clubbing, cyanosis, or edema. LUE AV fistula site with slight warmth, dark skinned no erythema appreciated. Some minimal tenderness. Bruit and thrill +. Left axillary fold with significant erythema, tenderness, and serosanguinous discharge. Unable to completely open his armpit, adhesions noted. Rt armpit with scarring noted and adhesions but no e.o acute infection. NEUROLOGICAL: Awake and alert. Psych: cooperative. IV line sites with no e/o infection. PORT site with no e.o infection. Laboratory Laboratory Tests Test 08/09/16 08/09/16 08/09/16 08/09/16 09:36 10:39 13:30 14:38 C-Reactive Protein 8.30 Vitamin B12 Level 750 Free Thyroxine 0.89 Thyroid Stimulating Hormone 1.720 3rd Gen Rapid Plasma Reagin NON-REACTIVE Troponin I 0.17 Urine Opiates Screen NEG Urine Barbiturates Screen NEG Urine Amphetamines Screen NEG Urine Benzodiazepines Screen NEG Urine Cocaine Screen NEG Urine Cannabinoids Screen NEG Urine Color LIGHT-YELLOW Urine Turbidity CLEAR Urine pH 8.5 Urine Specific [place] 1.008 Urine Protein 30 Urine Glucose (UA) TRACE Urine Ketones NEG Urine Occult Blood TRACE Urine Nitrite NEG Urine Bilirubin NEG Urine Urobilinogen LESS THAN 2.0 Urine Leukocyte Esterase NEG Urine RBC 1 Urine WBC 2 Urine Squamous Epithelial 2 Cells Microscopic Urinalysis Comment CATH-CULT NOT IND CSF Volume (Tube 1) 2.5 CSF Supernatant Color (tube 1) CLEAR CSF Gross Blood (Tube 1) TRACE CSF WBC (Tube 1) 5 CSF RBC (Tube 1) 90 CSF Volume (Tube 2) 2.5 CSF Supernatant Color (tube 2) CLEAR CSF Gross Blood (Tube 2) TRACE CSF Volume (Tube 3) 2.5 CSF Supernatant Color (tube 3) CLEAR CSF Gross Blood (Tube 3) 0 CSF Volume (Tube 4) 3.0 CSF Supernatant Color (tube 4) CLEAR CSF Gross Blood (Tube 4) TRACE CSF Neutrophils 32 CSF Lymphocytes 30 CSF Monocytes 36 CSF Eosinophils 2 CSF Glucose 53 CSF Lactic Acid 1.4 CSF Total Protein 105.6 Test 08/10/16 04:45 White Blood Count 12.9 Red Blood Count 3.09 Hemoglobin 8.7 Hematocrit 27.2 Mean Corpuscular Volume 88.0 Mean Corpuscular Hemoglobin 28.0 Mean Corpuscular Hemoglobin 31.8 Concent Red Cell Distribution Width 20.4 Platelet Count 398 Mean Platelet Volume 7.3 Sodium Level 139 Potassium Level 5.8 Chloride Level 105 Carbon Dioxide Level 23.2 Anion Gap 11 Blood Urea Nitrogen 66 Creatinine 11.29 Estimat Glomerular Filtration 6 Rate Random Glucose 107 Calcium Level 9.1 Date/Time Procedure Status Source Growth 08/09/16 20:05 Aerobic Blood Culture Received Blood Peripheral Pending 08/09/16 20:05 Anaerobic Blood Culture Received Blood Peripheral Pending 08/09/16 14:38 Gram Stain - Final Resulted Cerebral Spinal Fluid Lumbar Puncture 08/09/16 14:38 CSF Culture Resulted Cerebral Spinal Fluid Lumbar Puncture Pending 08/09/16 14:38 Fungal Smear Received Cerebral Spinal Fluid Lumbar Puncture Pending 08/09/16 14:38 Fungal Culture Received Cerebral Spinal Fluid Lumbar Puncture Pending 08/09/16 14:38 Acid Fast Stain Received Cerebral Spinal Fluid Lumbar Puncture Pending 08/09/16 14:38 Mycobacterial Culture Received Cerebral Spinal Fluid Lumbar Puncture Pending Result Diagram: 08/10/16 0445 08/10/16 0445 Imaging Last Impressions Abdomen/Pelvis CT 08/08/16 193 Signed Impressions: Service Date/Time: Monday, August 08, 2016 19:58 - CONCLUSION: 1. No obstruction or acute inflammatory changes are seen in the abdomen or pelvis. Normal appendix. 2. Complex cyst of the right kidney as described above. Further characterization with a contrast enhanced study is suggested when clinically feasible. 3. Small stones in a contracted gallbladder. No inflammatory changes. No ductal stone or ductal dilatation. 4. Areas of skin and subcutaneous induration, especially the right buttock and left inguinal regions. These are nonspecific. Also a potential pilonidal cyst. 5. Diffuse sclerosis of the visualized osseous structures typical of chronic renal disease. Possible small brown tumors of the right iliac bone. 6. There is a small fat containing hernia at the umbilicus. Casimiro Hair MD Head CT 08/08/16 9096 Signed Impressions: Service Date/Time: Monday, August 08, 2016 19:00 - CONCLUSION: Normal examination for a patient of this age. No significant change has occurred. Vladimir Singer MD Chest X-Ray 08/08/16 1850 Signed Impressions: Service Date/Time: Monday, August 08, 2016 19:06 - CONCLUSION: Mild bilateral diffuse airspace opacities. Casimiro Hair MD Chest CT 08/08/16 0000 Signed Impressions: Service Date/Time: Monday, August 08, 2016 19:58 - CONCLUSION: 1. Trace failure in the proper clinical setting. 2. Small pericardial effusion, nonspecific. 3. Coronary artery calcification. 4. Upper limits of normal axillary lymph nodes. 5. Bilateral gynecomastia. Casimiro Hair MD Brain MRI 08/08/16 0000 Signed Impressions: Service Date/Time: Monday, August 08, 2016 21:28 - CONCLUSION: 1. No acute infarct. Mild chronic white matter ischemic changes with slight progression since 2012. Vladimir Singer MD Assessment and Plan Assessment and Plan Acute metabolic encephalopathy on admission (prior h.o odd behaviors per , ? missed HD session, infection low probability of Meningitis clinically) Abnormal LP: given behavior issues would like to r/o neurosyphilis, CSF LEEANNE virus for PML and HIV screen Hiddradenitis suppuritiva with left axillary cellulitis/abscess.\ ? AV fistula site cellulitis. s/p port placement for IV access ESRD on HD , , Sat per . ? missed HD session Mild to moderate mitral stenosis on ECHO. Recs: Start Doxy (helps reduce inflammation of the axillary hiddradenitis and also common skin commensal related cellulitis. Follow cultures CSF LEEANNE virus CSF VDRL Follow CSF HSV PCR. HIV antibody screen Hepatitis profile. CT left humerus to look for abscess in arm pit as well as fistula site. Also Doppler LUE to r/o AV fistula site infection. CRP and ESR could be high from this chronic process of hidradenitis. Clinically very low probability of bacterial meningitis. d.w patients d.w and RN for patient. Nickie Handley MD Aug 10, 2016 08:50
--- NOTE | 2016-08-10 09:00 | MB ---
cc: YAMILKA HUDSON MD DATE OF CONSULTATION 08/09/2016 REASON FOR CONSULTATION End-stage renal disease on hemodialysis for management. HISTORY OF PRESENT ILLNESS This is a 45-year-old male with past medical history of hypertension, cerebrovascular accident, history of chronic anemia who came to the hospital with altered mental status and confusion. I have seen the patient before in the past. He has now been following with Dr. Richardson and getting hemodialysis at [facility] in [facility] on Tuesday, and Tuesday. The patient is still confused. He is able to tell his name and he knows he is in the hospital but he does not know the name of the hospital. The notes I got from the EMR is showing that the patient was brought to the hospital because of confusion and altered mental status. On arrival he had left-sided facial droop with left-sided weakness and the case was discussed with on-call Neurology and CT scan of the brain was negative and the patient had elevated blood pressure on presentation. He had an EEG and echocardiogram done. The patient had his last hemodialysis done on Tuesday. 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 PAST MEDICAL HISTORY 1. Hypertension. 2. Gastroparesis. 3. Anxiety depression. 4. Diabetes mellitus. 5. End-stage renal disease on hemodialysis three times per week. 6. History of sickle cell trait. PAST SURGICAL HISTORY Multiple surgeries in the groin and lower abdominal area for hyperadenitis. Left arm A-V fistula surgery. Tenckhoff catheter placement and removal. REVIEW OF SYSTEMS Limited since he is still quite confused and not able to answer all the questions. He has mild nausea. There is no vomiting. He had some anxiety attack an hour ago as per the nurse. Now he is feeling better. There is no shortness of breath. No chest pain. No palpitation. No abdominal pain. No history of diarrhea. SOCIAL HISTORY There is no history of smoking or alcoholism. FAMILY HISTORY Noncontributory ALLERGIES CONTRAST MEDIA. REGLAN. SEAFOOD. MEDICATIONS Currently he is on following medications - 1. Coreg 12.5 mg b.i.d. 2. Protonix 40 mg once a day. 3. Proscar 5 mg daily. . 4. Cozaar 100 mg q.h.s. 5. NovoLog insulin q.6 hours p.r.n. 6. Hydralazine 50 mg t.i.d. 7. Nicardipine. 8. Zofran as needed. 9. Labetalol as needed. PHYSICAL EXAMINATION GENERAL: The patient is awake. He is alert and oriented to place only. Not in acute distress. VITAL SIGNS: His last blood pressure is 148/57, temperature is 98.9, oxygen saturation is 93-97%. HEENT: Pupils equally reacting to light. Nonicteric sclerae. Conjunctivae pale. NECK: Supple. JVD is not elevated. LUNGS: The patient has bilateral decreased air entry with occasional wheezing. HEART: S1, S2. Regular rhythm. ABDOMEN: Slightly distended, soft, lax. There is no tenderness. Bowel sounds positive. EXTREMITIES: There is mild edema in the leg. Left arm with A-V fistula with good bruit. INVESTIGATIONS WBC count is 10.4, hemoglobin 9.3, platelet count of 396, neutrophils 78.4%. Sodium 141, potassium 4.9, chloride 103, bicarb 21.6, BUN 58, creatinine 9.4, calcium 9.7, phosphorus of 7.1, AST and ALT normal. Troponin I 0.1. CRP is 8.3. Total protein is 7.8 with albumin of 3.1. INR 1.1. Toxicology screen was negative. MING is pending. IMAGING STUDIES The patient had carotid ultrasound done which shows negative for significant carotid stenosis. Lumbar puncture was also done. CT scan of the abdomen and pelvis was done without IV contrast and it shows no obstruction or acute inflammatory changes seen in the abdomen and pelvis. Area of skin and subcutaneous induration. Diffuse sclerosis of visualized osseous structure. Possible round tumor of right bone. CT scan of the brain was done which was normal. MRI of the brain was done which shows no acute infarct, also had echocardiogram done which shows ejection fraction was 75-85%. ASSESSMENT AND PLAN 1. Encephalopathy and confusion. 2. End-stage renal disease on hemodialysis. 3. Anemia. 4. TIA. 5. Hypertension uncontrolled. 6. Diabetes mellitus 7. Sickle-cell trait The patient has been on hemodialysis Tuesday, and Tuesday. He had his dialysis done Tuesday. His potassium was high on admission but it has improved and normalized. We will dialyze him in the morning and remove fluid as tolerated. His phosphorus is elevated and calcium is normal. I will put the patient on Renvela and put him on Ativan which he takes at home for anxiety. Thank you for the consultation and I will follow the patient while he is in the hospital. MD JOSE DE JESUS Wilson/NELLY /9:52 PM /7:36 AM
--- NOTE | 2016-08-10 10:06 | RADRPT ---
EXAM DATE/TIME: 08/10/2016 08:47 [facility] COMPARISON: CHEST SINGLE AP, August 08, 2016, 19:06. INDICATIONS: Short of breath. MEDICAL HISTORY: None. SURGICAL HISTORY: Port placement. ENCOUNTER: Initial ACUITY: 1 day PAIN SCORE: 3/10 LOCATION: Bilateral chest FINDINGS: There is a [id number] in place from the right subclavian approach with the tip overlying the SVC. The heart size is enlarged. The lungs demonstrate diffuse increased interstitial markings. There i s some further increased density seen in the left perihilar region and the right base. The costophre mindy angles are grossly clear. CONCLUSION: 1. Mild cardiomegaly and diffuse increased interstitial markings likely representing edema. Casimiro Zapata MD on August 10, 2016 at 9:59 Board Certified Radiologist. This report was verified electronically.
--- NOTE | 2016-08-10 11:26 | PD.CARD.PN ---
Subjective Subjective Remarks No chest pain Still somewhat confused, knows that he's in [place] but states that he was told that and so that's how he knows Objective Medications Current Medications Medications (Trade) Dose Ordered Sig/Bulmaro Route Start Time Stop Time Status Last Admin (Cardene Inj/NS 250 ml Inj) 260 ml @ 0 mls/hr TITRATE IV 08/08/16 19:45 08/10/16 08:41 (NS Flush) 2 ml UNSCH PRN IV FLUSH 08/08/16 21:30 08/10/16 03:54 (NS Flush) 2 ml BID IV FLUSH 08/09/16 09:00 08/10/16 07:40 (Tylenol) 650 mg Q6H PRN PO 08/08/16 21:30 08/09/16 02:03 (Zofran Inj) 4 mg Q6H PRN IV 08/08/16 21:30 08/10/16 03:53 (Dulcolax Ec) 10 mg DAILY PRN PO 08/08/16 21:30 (Senokot) 17.2 mg Q12H PRN PO 08/08/16 21:30 Miscellaneous Information 1 Q361D XX 08/08/16 21:30 (Chlorhexidine 2% Cloth) 3 pack Taper DAILY@04 TOP 08/09/16 04:00 08/05/17 03:59 08/09/16 23:49 (Chlorhexidine 2% Cloth) 3 pack UNSCH PRN TOP 08/08/16 21:30 (Trandate Inj) 20 mg Q2HR PRN IV PUSH 08/08/16 21:30 (NovoLOG SUPPLEMENTAL SCALE) 1 Q6HR SQ 08/09/16 00:00 (D50w (Vial) Inj) 25 ml UNSCH PRN IV 08/08/16 22:00 08/09/16 00:23 (Glucagon Inj) 1 mg UNSCH PRN IM/SQ 08/08/16 22:00 (Protonix) 40 mg DAILY PO 08/09/16 10:00 08/10/16 07:39 (Proscar) 5 mg DAILY PO 08/09/16 16:00 08/10/16 07:39 (Apresoline) 50 mg TID PO 08/09/16 18:00 08/10/16 07:39 (Coreg) 12.5 mg BID PO 08/09/16 16:00 08/10/16 07:39 (Cozaar) 100 mg HS PO 08/09/16 16:00 08/09/16 21:05 (Apresoline Inj) 10 mg Q30M PRN IV PUSH 08/09/16 16:00 (Dilaudid Pf Inj) 0.5 mg Q4H PRN IV PUSH 08/09/16 18:15 08/10/16 08:25 (Ativan) 0.5 mg Q6H PRN PO 08/09/16 23:00 08/10/16 08:25 (Renvela) 1,600 mg TIDAC PO 08/10/16 08:00 08/10/16 07:40 Vitamin B Complex/ Vit C/Folic Acid 1 cap 1 cap DAILY PO 08/10/16 09:00 08/10/16 07:39 (NS 1000 ml Inj) 1,000 ml @ 0 mls/hr Q0M PRN IV 08/09/16 22:56 Heparin Sodium (Porcine) 8000 units 8,000 units UNSCH PRN IVF 08/09/16 23:00 Sodium Chloride 1,000 ml @ 200 mls/hr Q5H PRN IV 08/09/16 22:56 (NS 1000 ml Inj) 1,000 ml @ 0 mls/hr Q0M PRN IV 08/09/16 22:56 (Mannitol Inj) 12.5 gm UNSCH PRN IV 08/09/16 23:00 (Albumin 25% Inj) 25 gm UNSCH PRN IV 08/09/16 23:00 (NS Flush) 5 ml UNSCH PRN IVF 08/09/16 23:00 (Heparin Inj) UNSCH PRN .XX 08/09/16 23:00 (Gentamicin (Dialysis) Inj) 20 mg UNSCH PRN IV 08/09/16 23:00 (Zofran Inj) 4 mg UNSCH PRN IV 08/09/16 23:00 (Tylenol) 650 mg UNSCH PRN PO 08/09/16 23:00 (Benadryl) 25 mg UNSCH PRN PO 08/09/16 23:00 (Nitrostat Sl) 0.4 mg UNSCH PRN SL 08/09/16 23:00 (Catapres) 0.1 mg UNSCH PRN PO 08/09/16 23:00 (Epogen Inj) 10,000 units UNSCH PRN IV 08/09/16 23:00 (Gelfoam 12 Mm/7 Mm Top) 1 foam UNSCH PRN TOP 08/09/16 23:00 Vital Signs / I&O Vital Signs Date Time Temp Pulse Resp B/P Pulse Ox O2 Delivery O2 Flow Rate FiO2 08/10/16 10:00 80 08/10/16 08:00 99.2 94 26 143/67 90 08/10/16 08:00 94 08/10/16 06:00 98 08/10/16 04:32 20 08/10/16 04:00 98.9 89 24 160/71 91 08/10/16 04:00 89 08/10/16 02:00 85 08/10/16 00:00 98.6 88 25 175/79 94 08/10/16 00:00 88 08/09/16 22:00 83 08/09/16 20:00 98.9 84 17 148/57 93 08/09/16 20:00 84 08/09/16 19:52 95 21 08/09/16 18:00 91 08/09/16 16:00 99.0 88 21 168/77 97 08/09/16 16:00 88 08/09/16 14:00 92 08/09/16 12:00 88 08/09/16 12:00 98.6 88 18 153/66 97 I/O 08/09/16 08/09/16 08/09/16 08/10/16 08/10/16 08/10/16 07:00 15:00 23:00 07:00 15:00 23:00 Intake Total 732 ml 1223 ml 486 ml 563 ml Output Total 250 ml 350 ml Balance 732 ml 1223 ml 236 ml 213 ml Intake Oral 480 ml 350 ml IV Total 252 ml 873 ml 486 ml 563 ml Output Urine Total 250 ml 350 ml # Voids 4 3 # Bowel Movements 4 2 Physical Exam GENERAL: NAD, Alert and awake SKIN: Warm and dry. HEAD: Atraumatic. Normocephalic. EYES: Pupils equal and round. No scleral icterus. No injection or drainage. ENT: No nasal bleeding or discharge. Mucous membranes pink and moist. NECK: Trachea midline. No JVD. CARDIOVASCULAR: Regular rate and rhythm. RESPIRATORY: No accessory muscle use. Clear to auscultation. Breath sounds equal bilaterally. GASTROINTESTINAL: Abdomen soft, non-tender, nondistended. Hepatic and splenic margins not palpable. MUSCULOSKELETAL: Extremities without clubbing, cyanosis, or edema. No obvious deformities. NEUROLOGICAL: Awake and alert. No obvious cranial nerve deficits. Motor grossly within normal limits. Five out of 5 muscle strength in the arms and legs. Normal speech. PSYCHIATRIC: Appropriate mood and affect; insight and judgment normal. Laboratory Laboratory Tests Test 08/09/16 08/09/16 08/10/16 13:30 14:38 04:45 Urine Opiates Screen NEG Urine Barbiturates Screen NEG Urine Amphetamines Screen NEG Urine Benzodiazepines Screen NEG Urine Cocaine Screen NEG Urine Cannabinoids Screen NEG Urine Color LIGHT-YELLOW Urine Turbidity CLEAR Urine pH 8.5 Urine Specific [place] 1.008 Urine Protein 30 mg/dL Urine Glucose (UA) TRACE mg/dL Urine Ketones NEG mg/dL Urine Occult Blood TRACE Urine Nitrite NEG Urine Bilirubin NEG Urine Urobilinogen LESS THAN 2.0 MG/DL Urine Leukocyte Esterase NEG Urine RBC 1 /hpf Urine WBC 2 /hpf Urine Squamous Epithelial 2 /hpf Cells Microscopic Urinalysis Comment CATH-CULT NOT IND CSF Volume (Tube 1) 2.5 ML CSF Supernatant Color (tube 1) CLEAR CSF Gross Blood (Tube 1) TRACE CSF WBC (Tube 1) 5 /MM3 CSF RBC (Tube 1) 90 /MM3 CSF Volume (Tube 2) 2.5 ML CSF Supernatant Color (tube 2) CLEAR CSF Gross Blood (Tube 2) TRACE CSF Volume (Tube 3) 2.5 ML CSF Supernatant Color (tube 3) CLEAR CSF Gross Blood (Tube 3) 0 CSF Volume (Tube 4) 3.0 ML CSF Supernatant Color (tube 4) CLEAR CSF Gross Blood (Tube 4) TRACE CSF Neutrophils 32 % CSF Lymphocytes 30 % CSF Monocytes 36 % CSF Eosinophils 2 % CSF Glucose 53 MG/DL CSF Lactic Acid 1.4 MMOL/L CSF Total Protein 105.6 MG/DL White Blood Count 12.9 TH/MM3 Red Blood Count 3.09 MIL/MM3 Hemoglobin 8.7 GM/DL Hematocrit 27.2 % Mean Corpuscular Volume 88.0 FL Mean Corpuscular Hemoglobin 28.0 PG Mean Corpuscular Hemoglobin 31.8 % Concent Red Cell Distribution Width 20.4 % Platelet Count 398 TH/MM3 Mean Platelet Volume 7.3 FL Sodium Level 139 MEQ/L Potassium Level 5.8 MEQ/L Chloride Level 105 MEQ/L Carbon Dioxide Level 23.2 MEQ/L Anion Gap 11 MEQ/L Blood Urea Nitrogen 66 MG/DL Creatinine 11.29 MG/DL Estimat Glomerular Filtration 6 ML/MIN Rate Random Glucose 107 MG/DL Calcium Level 9.1 MG/DL Assessment and Plan Problem List: (1) Altered mental status (2) Hypertensive emergency (3) Accelerated hypertension (4) CVA (cerebral vascular accident) (5) Elevated troponin Assessment and Plan 1) Continue with neurology work up 2) Mild elevation of troponin in ESRD patient, most likely due to hypertensive emergency, no further ischemic evaluation with current neurologic complications , medical management 3) Still on Cardene drip, will await HD... if still elevated, will consider starting Procardia Problem Qualifiers (1) CVA (cerebral vascular accident): Qualified Code: I63.9 - Cerebrovascular accident (CVA), unspecified mechanism Marshall Bruner DO Aug 10, 2016 11:26
[2016-08-10] MEDS: hydrALAZINE HCL 20 MG/ML VIAL IV PUSH PRN ×2 (11:40→18:37)
[2016-08-10] MEDS ORDERED: LORazepam 2 MG/ML VIAL ONE (12:14)
[2016-08-10 12:30] LABS: BLOOD GAS VENOUS BASE EXCESS -5.7 mmol/L (-2-2); BLOOD GAS VENOUS HCO3 19 mmol/L (22-26); BLOOD GAS VENOUS O2 CONTENT 8.6 Vol % (9.0-17.0); BLOOD GAS VENOUS O2 HGB SAT 67 % (70-76); BLOOD GAS VENOUS PCO2 40 mmHg (44-48); BLOOD GAS VENOUS PO2 41 mmHg (35-40); BLOOD GAS VENOUS pH 7.31 (7.360-7.400); TEMP CORR TO 98.6
[2016-08-10] MEDS ORDERED: LORazepam 2 MG/ML VIAL IVP ONE (12:30)
[2016-08-10 12:31] LABS: CRITICAL VALUE YES; DRAW SITE CENTRAL LINE; LITER FLOW 5 L/M; OXYGEN DEVICE NASAL CANNULA; STAT YES
[2016-08-10] MEDS ORDERED: LORazepam 2 MG/ML VIAL IVP SCH (13:00)
--- NOTE | 2016-08-10 13:52 | RADRPT ---
EXAM DATE/TIME: 08/10/2016 09:54 [facility] COMPARISON: No previous studies available for comparison. INDICATIONS: Left arm swelling. MEDICAL HISTORY: Hypertension. Gastroparesis. Sickle Cell disease. Seizures. Chest pain. Tachycardia. Dyspnea. Renal d isease and failure. Diabetes. Vertebrae fracture. Anemia. Depression. Anxiety. SURGICAL HISTORY: Right eye retina surgery. AV shunt. Multiple abdominal surgeries due to poor sweat glands. Dialysis. Tenckhoff tube. Blood transfusions. ENCOUNTER: Initial ACUITY: 4 - 6 days PAIN SCORE: 5/10 LOCATION: Left arm. FINDINGS: The patient has an AV fistula present. There does appear to be some aneurysmal diltation of the prox imal aspect of the AV fistula measuring up to 1.6 cm. There is normal flow seen. There does appear to be some peripheral mild thrombus in the left axillary vein. The left axillary vein is distended m easuring 1.5 cm. The subclavian, brachial and left internal jugular vein are patent. CONCLUSION: 1. AV fistula present. This is patent. There is some dilatation of the proximal aspect of the fist chiara. 2. Dilatation of the axillary vein with some very mild peripheral mural thrombus seen. Casimiro Zapata MD on August 10, 2016 at 13:42 Board Certified Radiologist. This report was verified electronically.
[2016-08-10] MEDS: DOXYCYCLINE HYCLATE 100 MG TAB PO SCH ×2 (15:24→20:20)
--- NOTE | 2016-08-10 16:11 | HHI.NPPN ---
Subjective History of Present Illness 45-year-old male with past medical history of hypertension, cerebrovascular accident, history of chronic anemia who came to the hospital with altered mental status and confusion. I have seen the patient before in the past. He has now been following with Dr. Richardson and getting hemodialysis at [facility] in [facility] on Tuesday, and Tuesday. Additional Remarks Patient is more alert, oriented times 1, has mild SOB. Review of Systems General Constitutional: Fatigue Respiratory Lungs: SOB, Cough Cardiovascular Cardiac: PAZ Objective Data Data 08/09/16 08/10/16 19:00 07:00 Intake Total 1223 ml 1049 ml Output Total 600 ml Balance 1223 ml 449 ml Intake Oral 350 ml IV Total 873 ml 1049 ml Output Urine Total 600 ml # Voids 3 # Bowel Movements 2 Vital Signs Date Time Temp Pulse Resp B/P Pulse Ox O2 Delivery O2 Flow Rate FiO2 08/10/16 14:00 93 08/10/16 12:15 97 Nasal Cannula 5.00 08/10/16 12:00 85 08/10/16 12:00 99.1 85 22 164/78 96 08/10/16 10:00 80 08/10/16 08:00 99.2 94 26 143/67 90 08/10/16 08:00 94 08/10/16 06:00 98 08/10/16 04:32 20 08/10/16 04:00 98.9 89 24 160/71 91 08/10/16 04:00 89 08/10/16 02:00 85 08/10/16 00:00 98.6 88 25 175/79 94 08/10/16 00:00 88 08/09/16 22:00 83 08/09/16 20:00 98.9 84 17 148/57 93 08/09/16 20:00 84 08/09/16 19:52 95 21 08/09/16 18:00 91 -: 08/10/16 0445 08/10/16 0445 Microbiology 08/09/16 Aerobic Blood Culture - Preliminary, Resulted NO GROWTH IN 1 DAY 08/09/16 Anaerobic Blood Culture - Preliminary, Resulted NO GROWTH IN 1 DAY 08/09/16 Aerobic Blood Culture - Preliminary, Resulted NO GROWTH IN 1 DAY 08/09/16 Anaerobic Blood Culture - Preliminary, Resulted NO GROWTH IN 1 DAY 08/10/16 Aerobic Blood Culture, Received Pending 08/10/16 Anaerobic Blood Culture, Received Pending Physical Exam General Appearance: Well Nourished, Anxious Throat Throat Exam: Oral Mucosa [place] & Moist Neck Neck Exam: Neck Supple Pulmonary Resp Exam: Crackles, Rhonchi, Decreased Bases, Diminished Breath Sounds Cardiology CV Exam: Regular, Normal Sinus Rhythm Gastrointestinal/Abdomen GI Exam: Soft, Non-Tender, Bowel Sounds Present Extremeties Extremities Exam: Trace Edema Neurologic Neuro Exam: Alert, Awake Psychiatric Psych Exam: Appropriate Responses Assessment/Plan Assessment Summary: Fluid/Volume Overload, Hypertension, End Stage Renal Disease Problem List: (1) Hypertension, accelerated (2) Hyperkalemia (3) Diabetes (4) SOB (shortness of breath) (5) Altered mental status (6) ESRD (end stage renal disease) on dialysis Plan Patient has SOB, and some fluid overload. K is 5.8, will have HD soon, will try to remove more fluid and use low K Bath. Confusion is better. BP still elevated, on Nicardipine infusion. Titrate as tolerated. Problem Qualifiers (1) Diabetes: (2) Altered mental status: Qualified Code: R41.0 - Disorientation Teresita Carroll MD Aug 10, 2016 16:10
[2016-08-10] MEDS: EPOETIN ALFA 10,000 UNITS/ML VIAL IV PRN (16:50)
[2016-08-10] MEDS: GELATIN 12 MM/7 MM FOAM TOP PRN (16:51)
[2016-08-10] MEDS: SODIUM CHLOR 0.9% 1000 ML INJ 1,000 ML IV PRN (16:51)
--- NOTE | 2016-08-10 16:52 | HHI.CCPN ---
Subjective Remarks/Hospital Course Hospital Course: Patient is a 45 year old male who presents to ER for evaluation of acute cva. As per EMS, patient arrived at their station with complaints of confusion and alerted mental status. Reports that all the information they could obtain from him was that he was a dialysis patient. Reports that upon arrival to ER at 6: 48 PM, patient began to have left sided facial droop with left sided arm weakness. Patient is not able to provide history of present illness this time. patient does have a left sided av fistula. After patient returns to the ER, reports that his left arm began to hurt him after EMS lifted him onto the stretcher. Reports that he has been having increased pain to his left arm possibly from being moved. Reports that he was driving his car today - unsure where he was going but reports that he felt sick so he pulled his car over. Reports that he felt nauseous and sick to his stomach , reports that he did ask a bystander for help and was told to drive to the nearest police station around the corner. Patient reports that when he arrived there, he was confused and was having generalized weakness as well as abdominal pain. Patient was evaluated in the ER, stroke alert was called and Dr. Caldwell from ER discussed the case with neurology Dr. Velazquez. Head CT was negative for bleed. Patient was noted to have systolic blood pressure to 20s. He had barely discernible left upper extremity weakness which was also felt to be secondary to pain on that side. Decision was made not to administer TPA as the diagnosis of stroke was not certain. Patient was confused with elevated blood pressure and was initiated on a nicardipine drip. He underwent a CT of the chest abdomen pelvis as he was also complaining of abdominal pain and left-sided chest wall pain with question of infiltrates on his chest x-ray. He did not have any fever or leukocytosis. Patient was accepted for admission by critical care medicine service. When I evaluated the patient he was laying in the ER stretcher. He knew his name however did not remember any further details regarding him being on dialysis or where he lived or what his medical problems were. Subjective: 08/09: continues to be mildly confused. oriented x 3, but states it takes him longer to answer questions, and he doesn't remember anything about how he got to the hospital yesterday. 08/10: clinically slightly improved from a mental status standpoint. had 2 episodes today of distress associated with tachypnea and agitation, both of which resolved with 0.5mg ativan iv. I personally witnessed 1 episode. during that time, the patient had oxygen saturations of 96% and an vbg which was unchanged from baseline respiratory status. plan for IHD today. Dr. Handley from [place] has seen the patient, as well as Dr. Chacon and Dr. Bruner. Objective Vital Signs Date Time Temp Pulse Resp B/P Pulse Ox O2 Delivery O2 Flow Rate FiO2 08/10/16 14:00 93 08/10/16 12:15 97 Nasal Cannula 5.00 08/10/16 12:00 99.1 22 164/78 08/09/16 19:52 21 Intake and Output 08/09/16 08/09/16 08/10/16 08:00 16:00 00:00 Intake Total 732 ml 1223 ml 486 ml Output Total 250 ml Balance 732 ml 1223 ml 236 ml Result Diagram: 08/10/16 0445 08/10/16 0445 Other Results Laboratory Tests Test 08/10/16 12:24 Blood Gas Puncture Site CENTRAL LINE Blood Gas Patient Temperature 98.6 Venous Blood pH 7.31 (7.360-7.400) Venous Blood Partial Pressure 40 mmHg (44-48) CO2 Venous Blood Partial Pressure 41 mmHg (35-40) O2 Venous Blood HCO3 19 mmol/L (22-26) Venous Blood Oxygen Saturation 67 % (70-76) Venous Blood Oxygen Content 8.6 Vol % (9.0-17.0) Venous Blood Base Excess -5.7 mmol/L (-2-2) Oxygen Delivery Device NASAL CANNULA Blood Gas Liter Flow 5 L/M Objective Remarks GENERAL: Patient mildly confused, alert, oriented x 3. SKIN: Warm and dry. HEAD: Atraumatic. Normocephalic. EYES: Pupils equal and round. No scleral icterus. No injection or drainage. ENT: No nasal bleeding or discharge. Mucous membranes pink and moist. NECK: Trachea midline. No JVD. CARDIOVASCULAR: Regular rate and rhythm. No murmur appreciated. still on cardene. RESPIRATORY: No accessory muscle use. Clear to auscultation. Breath sounds equal bilaterally. GASTROINTESTINAL: Abdomen soft, nondistended. no guarding. MUSCULOSKELETAL: No obvious deformities. No clubbing. No cyanosis. No edema. left AVF with palpable thrill. NEUROLOGICAL: Awake and alert. Normal speech, very mild left facial droop, LUE 4 +/5, LLE 4+/5. all other extremities CRUZITO 5/5. sensation grossly intact. A/P Assessment and Plan Assessment: 45-year-old male with ESRD now with acute encephalopathy and hypertensive emergency. will add procardia to try and get off cardene infusion. per ID discussions, adding doxy and await culture and laboratory data before further abx exposure. I continue to agree with ID that bacterial meningitis is very low in the differential diagnosis of this patient. continue neuro checks. I think he is safe to transfer to the floor with hospitalist services following. I additionally think psychiatry would be very useful in elucidating what component of his clinical symptomatology is psychiatric vs. organic. Plan: Neuro: Encephalopathy possibly secondary to hypertensive encephalopathy Left arm weakness/pain Severe Anxiety - MRI with slight right-sided cortical enhancement. - Neuro consulted: Dr. Chacon - LP with slightly elevated protein. other studies pending. - EEG generalized slowing - frequent neuro checks - possibly hypertensive encephalopathy. - consult psych. -ativan 0.5mg iv prn for anxiety. Cardiovascular: Hypertensive emergency Elevated troponin - Nicardipine drip to control hypertension. goal SBP < 160 - add back home meds: Losartan 100mg daily Carvedilol 12.5mg BID Hydralazine 50mg po TID - add procardia 20mg po q8hr - trend troponins - cardiac consult: Dr. Bruenr - ASA - hydralazine and labetalol prn. - will attempt to wean off cardene today. Pulmonary: Suspected pulmonary edema - Supplemental O2 as needed for goal spo2 > 90%. - Bronchodilators when necessary for wheezing. - HD today. GI/liver: Hyperkalemia - nursing bedside swallow assessment, if he passes, advance to clear liquid diet , then nephro as tolerated. ID: - ID consult: Dr. Handley following. - doxycycline per ID. - without nuchal rigidity, low concern for bacterial meningitis. will await further LP results. Renal/: End-stage renal disease on hemodialysis -Consult nephrology Dr. Carroll for end-stage renal disease requiring hemodialysis. - IHD today. Heme: Sickle cell trait - Follow CBC Endocrine: Diabetes mellitus - SSI for glycemic control Prophylaxis: PPI/SCDs/subcutaneous heparin. Dispo: safe to transition to floor with hospitalist following once off Cardene infusion. Luan Gardner MD Aug 10, 2016 16:52
[2016-08-10] MEDS: LABETALOL HCL 100 MG/20 ML VIAL IV PUSH PRN (17:22)
[2016-08-10] MEDS: NIFEdipine 20 MG CAP PO SCH (17:55)
[2016-08-10] MEDS: LOSARTAN 50 MG TAB PO SCH (20:20)
[2016-08-10] MEDS: ACETAMINOPHEN 325 MG TAB PO PRN (20:20)
[2016-08-11] VITALS (11 sets, daily range): BP systolic 136–155; BP diastolic 61–74; PULSE 77–94; RESP 16–22; TEMP 98.1–99.3; O2SAT 94–99
[2016-08-11] MEDS: NIFEdipine 20 MG CAP PO SCH ×4 (01:04→20:07)
[2016-08-11] MEDS: CHLORHEXIDINE GLUCONATE 2 % 1 PACK (2 CLOTHS) TOP SCH (04:00)
[2016-08-11] MEDS: HYDROmorphone HCL PF 1 MG/ML VIAL IV PUSH PRN ×4 (04:49→20:20)
[2016-08-11] MEDS: INSULIN ASPART SUPPLEMENTAL SCALE SQ SCH ×5 (04:57→22:13)
[2016-08-11] MEDS: VITAMIN B CMPLX/VITC/FOLIC AC CAP PO SCH (08:31)
[2016-08-11] MEDS: ACETAMINOPHEN 325 MG TAB PO PRN (08:31)
[2016-08-11] MEDS: SEVELAMER CARBONATE 800 MG TAB PO SCH ×3 (08:31→18:03)
[2016-08-11] MEDS: LORazepam 0.5 MG TAB PO PRN ×2 (08:32→20:07)
[2016-08-11] MEDS: PANTOPRAZOLE SOD 40 MG DELAYED RELEASE TAB PO SCH (08:32)
[2016-08-11] MEDS: CARVEDILOL 12.5 MG TAB PO SCH ×2 (08:32→20:07)
[2016-08-11] MEDS: FINASTERIDE 5 MG TAB PO SCH (08:32)
[2016-08-11] MEDS: SODIUM CHLORIDE 0.9% FLUSH 5 ML FLUSH IV FLUSH SCH ×2 (08:32→20:07)
[2016-08-11] MEDS: DOXYCYCLINE HYCLATE 100 MG TAB PO SCH (08:32)
[2016-08-11] MEDS: hydrALAZINE HCL 50 MG TAB PO SCH ×3 (08:32→18:03)
--- NOTE | 2016-08-11 09:52 | RADRPT ---
EXAM DATE/TIME: 08/11/2016 08:54 [facility] COMPARISON: US ARM LEFT VENOUS DOPPLER, August 10, 2016, 9:54. INDICATIONS: Possible abscess RADIATION DOSE: 18.34 CTDIvol (mGy) MEDICAL HISTORY: Cerebrovascular disease. Cardiovascular disease Renal failure, chronic. Diabetes SURGICAL HISTORY: Lt arm fistula ENCOUNTER: Initial ACUITY: 1 day PAIN SCALE: 3/10 LOCATION: Left upper arm TECHNIQUE: Volumetric scanning of the humerus was performed. Using automated exposure control and adjustment of the mA and/or kV according to patient size, radiation dose was kept as low as reasonably achievable to obtain optimal diagnostic quality images. FINDINGS: Clips are seen in the medial upper arm at the elbow level likely from an AV fistula. There does appe ar to be distention of the veins in the medial upper arm extending into the axillary region. There does appear to be induration of fat around the venous structures but a separate well-formed fluid collection is not alma ntified. Normal size lymph nodes are seen in the axillary regions. The bony structures appear intact. CONCLUSION: Induration around an AV fistula without a focal abscess seen. Casimiro Zapata MD on August 11, 2016 at 9:17 Board Certified Radiologist. This report was verified electronically.
--- NOTE | 2016-08-11 10:20 | HHI.PR ---
Subjective Remarks mills n/v better but stil 09/06 mills sob also better Objective Vital Signs Date Time Temp Pulse Resp B/P Pulse Ox O2 Delivery O2 Flow Rate FiO2 08/11/16 07:30 98 Nasal Cannula 4.00 08/11/16 06:00 90 08/11/16 04:00 91 08/11/16 04:00 99.1 91 17 149/61 98 08/11/16 02:00 89 08/11/16 00:00 88 08/11/16 00:00 98.8 88 22 155/73 96 08/10/16 22:00 95 08/10/16 21:49 26 08/10/16 20:08 94 Nasal Cannula 5.00 08/10/16 20:00 101.7 103 20 163/72 92 08/10/16 20:00 103 08/10/16 18:00 93 08/10/16 16:00 91 08/10/16 16:00 100.1 91 30 156/71 97 08/10/16 14:00 93 08/10/16 12:15 97 Nasal Cannula 5.00 08/10/16 12:00 85 08/10/16 12:00 99.1 85 22 164/78 96 I/O 08/10/16 08/10/16 08/10/16 08/11/16 08/11/16 08/11/16 07:00 15:00 23:00 07:00 15:00 23:00 Intake Total 563 ml 1061 ml 501 ml 240 ml Output Total 350 ml 50 ml 4800 ml 100 ml Balance 213 ml 1011 ml -4299 ml 140 ml Intake Oral 360 ml 240 ml 240 ml IV Total 563 ml 701 ml 261 ml Output Urine Total 350 ml 50 ml 100 ml 100 ml Hemodialysis 4700 ml Result Diagram: 08/10/16 0445 08/11/16 0459 Objective Remarks ox3 now memory back 5/5 bue and ble vff face sym Assessment and Plan Assessment and Plan imp lp neg x prot inc 102 lives with resp better chf abg venous pH 7.3 labs neg eeg slow only mri wm change right us neg unclear why so high prot csf ? post LP mills have lay flat for 6 hours and if mills goes away then we know post LP if not then is not some chf will defer to med team and abg ? venous to med team with low pH probably will be fine neurowise i have ordered MRA COW AND MRV BRAIN IF THESE ARE ABN CALL NEURO ORE TESTER i will be out of town UNTIL TUESDAY Jaspreet Chacon MD Aug 11, 2016 10:20
[2016-08-11 10:51] LABS: HSV 1,PCR Negative (Negative)
--- NOTE | 2016-08-11 11:08 | HHI.NPPN ---
Subjective History of Present Illness 45-year-old male with past medical history of hypertension, cerebrovascular accident, history of chronic anemia who came to the hospital with altered mental status and confusion. I have seen the patient before in the past. He has now been following with Dr. Richardson and getting hemodialysis at [facility] in [facility] on Tuesday, and Tuesday. Additional Remarks Patient is more alert and oriented , breathing is better. Review of Systems General Constitutional: Fatigue Respiratory Lungs: SOB, Cough Cardiovascular Cardiac: PAZ Objective Data Data 08/10/16 08/11/16 19:00 07:00 Intake Total 1322 ml 480 ml Output Total 4850 ml 100 ml Balance -3528 ml 380 ml Intake Oral 360 ml 480 ml IV Total 962 ml Output Urine Total 150 ml 100 ml Hemodialysis 4700 ml Vital Signs Date Time Temp Pulse Resp B/P Pulse Ox O2 Delivery O2 Flow Rate FiO2 08/11/16 07:30 98 Nasal Cannula 4.00 08/11/16 06:00 90 08/11/16 04:00 91 08/11/16 04:00 99.1 91 17 149/61 98 08/11/16 02:00 89 08/11/16 00:00 88 08/11/16 00:00 98.8 88 22 155/73 96 08/10/16 22:00 95 08/10/16 21:49 26 08/10/16 20:08 94 Nasal Cannula 5.00 08/10/16 20:00 101.7 103 20 163/72 92 08/10/16 20:00 103 08/10/16 18:00 93 08/10/16 16:00 91 08/10/16 16:00 100.1 91 30 156/71 97 08/10/16 14:00 93 08/10/16 12:15 97 Nasal Cannula 5.00 08/10/16 12:00 85 08/10/16 12:00 99.1 85 22 164/78 96 -: 08/10/16 0445 08/11/16 0459 Microbiology 08/10/16 Aerobic Blood Culture, Received Pending 08/10/16 Anaerobic Blood Culture, Received Pending Physical Exam General Appearance: Well Nourished, Anxious Throat Throat Exam: Oral Mucosa [place] & Moist Neck Neck Exam: Neck Supple Pulmonary Resp Exam: Crackles, Rhonchi, Decreased Bases, Diminished Breath Sounds Cardiology CV Exam: Regular, Normal Sinus Rhythm Gastrointestinal/Abdomen GI Exam: Soft, Non-Tender, Bowel Sounds Present Extremeties Extremities Exam: Trace Edema Neurologic Neuro Exam: Alert, Awake Psychiatric Psych Exam: Appropriate Responses Assessment/Plan Assessment Summary: Fluid/Volume Overload, Hypertension, End Stage Renal Disease Problem List: (1) Hypertension, accelerated (2) Hyperkalemia (3) Diabetes (4) SOB (shortness of breath) (5) Altered mental status (6) ESRD (end stage renal disease) on dialysis Plan Patient has HD done yesterday. K is again 6.0, will give Kayexalate and repeat K level. Confusion is better. BP still better, on Nicardipine infusion and titrating. HD again in AM, or today if K increase further. Problem Qualifiers (1) Diabetes: (2) Altered mental status: Qualified Code: R41.0 - Disorientation Teresita Carroll MD Aug 11, 2016 11:08 Teresita Carroll MD Aug 11, 2016 11:08
[2016-08-11] MEDS ORDERED: SODIUM POLYSTYRENE SULFONATE SUSP 15 GM/60 ML CUP PO ONE (12:00)
[2016-08-11] MEDS ORDERED: LORazepam 2 MG/ML VIAL IV PUSH ONE (12:00)
[2016-08-11] MEDS ORDERED: SODIUM BICARBONATE 8.4% INJ 50 MEQ/50 ML SYR IV PUSH ONE (12:00)
[2016-08-11 12:03] LABS: HEMATOCRIT 27.3 % (39.0-51.0); MEAN CELL VOLUME 85.6 FL (80.0-100.0); MEAN CORPUSCULAR HEMOGLOBIN 27.7 PG (27.0-34.0); MEAN CORPUSCULAR HGB CONC 32.4 % (32.0-36.0); PLATELET COUNT 394 TH/MM3 (150-450); RED BLOOD COUNT 3.18 MIL/MM3 (4.50-5.90); REVIEW FLAG FINAL; WHITE BLOOD COUNT 11.4 TH/MM3 (4.0-11.0)
--- NOTE | 2016-08-11 13:01 | HHI.IDPN ---
Subjective Subjective Remarks is a 45 y.o AAM with PMHx of ESRD on HD Tues, Thurs, Sat, Hidradenitis suppuritiva who has recd IV antibiotics in past, PORT in place for IV access issues, prior h/o TIA, prior h/o seizures. Now being followed for Left AV fistula cellulitis as well as left axillary cellulitis secondary to Hidradenitis suppuritiva. Abnormal LP work up in progress. Gram stain negative, CX neg for bacterial, HSV 1/2 negative. Overnight events reviewed Fevers 101 F overnight Much more alert without meningitis treatment, No rash No diarrhea CSF LEEANNE and VDRL pending given abnormal total protein in CSF. MRI/MRA.MRV planned for today. Antibiotics Doxy Lines Line sites no e/o infection Past Medical History reviewed Allergies: Coded Allergies: Contrast Media (Unverified Allergy, Severe, nausea/vomiting, 08/08/16) causes n/v HAD TEST TODAY 11/15/11 TOOK BENADRYL AND DID OK. Reglan (Verified Allergy, Severe, ANXIETY, 08/08/16) Seafood (Verified Allergy, Severe, SWELLING-CANT BREATH-HIVES, 08/08/16) Objective . Vital Signs Date Time Temp Pulse Resp B/P Pulse Ox O2 Delivery O2 Flow Rate FiO2 08/11/16 07:30 98 Nasal Cannula 4.00 08/11/16 06:00 90 08/11/16 04:00 91 08/11/16 04:00 99.1 91 17 149/61 98 08/11/16 02:00 89 08/11/16 00:00 88 08/11/16 00:00 98.8 88 22 155/73 96 08/10/16 22:00 95 08/10/16 21:49 26 08/10/16 20:08 94 Nasal Cannula 5.00 08/10/16 20:00 101.7 103 20 163/72 92 08/10/16 20:00 103 08/10/16 18:00 93 08/10/16 16:00 91 08/10/16 16:00 100.1 91 30 156/71 97 08/10/16 14:00 93 08/10/16 08/10/16 08/11/16 15:00 23:00 07:00 Intake Total 1061 ml 501 ml 240 ml Output Total 50 ml 4800 ml 100 ml Balance 1011 ml -4299 ml 140 ml Intake Oral 360 ml 240 ml 240 ml IV Total 701 ml 261 ml Output Urine Total 50 ml 100 ml 100 ml Hemodialysis 4700 ml . Laboratory Tests Test 08/10/16 08/11/16 04:45 10:49 White Blood Count 12.9 TH/MM3 11.4 TH/MM3 Red Blood Count 3.09 MIL/MM3 3.18 MIL/MM3 Hemoglobin 8.7 GM/DL 8.8 GM/DL Hematocrit 27.2 % 27.3 % Mean Corpuscular Volume 88.0 FL 85.6 FL Mean Corpuscular Hemoglobin 28.0 PG 27.7 PG Mean Corpuscular Hemoglobin 31.8 % 32.4 % Concent Red Cell Distribution Width 20.4 % 20.0 % Platelet Count 398 TH/MM3 394 TH/MM3 Mean Platelet Volume 7.3 FL 7.0 FL Laboratory Tests Test 08/10/16 08/11/16 04:45 04:59 Sodium Level 139 MEQ/L 142 MEQ/L Potassium Level 5.8 MEQ/L 6.0 MEQ/L Chloride Level 105 MEQ/L 103 MEQ/L Carbon Dioxide Level 23.2 MEQ/L 23.0 MEQ/L Anion Gap 11 MEQ/L 16 MEQ/L Blood Urea Nitrogen 66 MG/DL 50 MG/DL Creatinine 11.29 MG/DL 8.95 MG/DL Estimat Glomerular Filtration 6 ML/MIN 8 ML/MIN Rate Random Glucose 107 MG/DL 88 MG/DL Calcium Level 9.1 MG/DL 10.2 MG/DL Microbiology Date/Time Procedure Status Source Growth 08/09/16 14:38 Gram Stain - Final Resulted Cerebral Spinal Fluid Lumbar Puncture 08/09/16 14:38 CSF Culture - Preliminary Resulted Cerebral Spinal Fluid Lumbar Puncture NO GROWTH IN 48 HOURS. 08/09/16 14:38 Acid Fast Stain - Final Resulted Cerebral Spinal Fluid Lumbar Puncture NO ACID FAST BACILLI SEEN 08/09/16 14:38 Mycobacterial Culture Resulted Cerebral Spinal Fluid Lumbar Puncture Pending 08/09/16 14:38 Fungal Smear - Final Resulted Cerebral Spinal Fluid Lumbar Puncture NO FUNGAL ELEMENTS SEEN. 08/09/16 14:38 Fungal Culture Resulted Cerebral Spinal Fluid Lumbar Puncture Pending 08/09/16 20:00 Aerobic Blood Culture - Preliminary Resulted Blood Peripheral NO GROWTH IN 2 DAYS 08/09/16 20:00 Anaerobic Blood Culture - Preliminary Resulted Blood Peripheral NO GROWTH IN 2 DAYS 08/09/16 20:05 Aerobic Blood Culture - Preliminary Resulted Blood Peripheral NO GROWTH IN 2 DAYS 08/09/16 20:05 Anaerobic Blood Culture - Preliminary Resulted Blood Peripheral NO GROWTH IN 2 DAYS 08/10/16 13:33 Aerobic Blood Culture - Preliminary Resulted Blood Other NO GROWTH IN 1 DAY 08/10/16 13:33 Anaerobic Blood Culture - Preliminary Resulted Blood Other NO GROWTH IN 1 DAY Imaging Last Impressions Upper Extremity CT 08/11/16 0000 Signed Impressions: Service Date/Time: Thursday, August 11, 2016 08:54 - CONCLUSION: Induration around an AV fistula without a focal abscess seen. Casimiro Zapata MD Chest X-Ray 08/10/16 0925 Signed Impressions: Service Date/Time: Wednesday, August 10, 2016 08:47 - CONCLUSION: 1. Mild cardiomegaly and diffuse increased interstitial markings likely representing edema. Casimiro Zapata MD Upper Extremity Ultrasound 08/10/16 0000 Signed Impressions: Service Date/Time: Wednesday, August 10, 2016 09:54 - CONCLUSION: 1. AV fistula present. This is patent. There is some dilatation of the proximal aspect of the fistula. 2. Dilatation of the axillary vein with some very mild peripheral mural thrombus seen. Casimiro Zapata MD Lumbar Puncture Fluoroscopy 08/09/16 0000 Signed Impressions: Service Date/Time: Tuesday, August 09, 2016 12:45 - CONCLUSION: Uncomplicated fluoroscopically guided lumbar puncture. Opening pressure 26 cm H2O. Nemesio Badillo Jr., MD Abdomen/Pelvis CT 08/08/16 1933 Signed Impressions: Service Date/Time: Monday, August 08, 2016 19:58 - CONCLUSION: 1. No obstruction or acute inflammatory changes are seen in the abdomen or pelvis. Normal appendix. 2. Complex cyst of the right kidney as described above. Further characterization with a contrast enhanced study is suggested when clinically feasible. 3. Small stones in a contracted gallbladder. No inflammatory changes. No ductal stone or ductal dilatation. 4. Areas of skin and subcutaneous induration, especially the right buttock and left inguinal regions. These are nonspecific. Also a potential pilonidal cyst. 5. Diffuse sclerosis of the visualized osseous structures typical of chronic renal disease. Possible small brown tumors of the right iliac bone. 6. There is a small fat containing hernia at the umbilicus. Casimiro Hair MD Head CT 08/08/16 1853 Signed Impressions: Service Date/Time: Monday, August 08, 2016 19:00 - CONCLUSION: Normal examination for a patient of this age. No significant change has occurred. Vladimir Singer MD Chest CT 08/08/16 0000 Signed Impressions: Service Date/Time: Monday, August 08, 2016 19:58 - CONCLUSION: 1. Trace failure in the proper clinical setting. 2. Small pericardial effusion, nonspecific. 3. Coronary artery calcification. 4. Upper limits of normal axillary lymph nodes. 5. Bilateral gynecomastia. Casimiro Hair MD Brain MRI 08/08/16 0000 Signed Impressions: Service Date/Time: Monday, August 08, 2016 21:28 - CONCLUSION: 1. No acute infarct. Mild chronic white matter ischemic changes with slight progression since 2012. Vladimir Singer MD Physical Exam GENERAL: This is a well-nourished, well-developed patient, in no apparent distress. SKIN: No rashes, ecchymoses or lesions. Cool and dry. HEAD: Atraumatic. Normocephalic. No temporal or scalp tenderness. EYES: Pupils equal round and reactive. Extraocular motions intact. No scleral icterus. No injection or drainage. ENT: Nose without bleeding, purulent drainage or septal hematoma. Throat without erythema, tonsillar hypertrophy or exudate. Uvula midline. Airway patent. NECK: Trachea midline. Supple, nontender, no meningeal signs. CARDIOVASCULAR: HS audible. No murmur appreciated. RESPIRATORY: Clear to auscultation. Breath sounds equal bilaterally. GASTROINTESTINAL: Abdomen soft, non-tender, nondistended. MUSCULOSKELETAL: Extremities without clubbing, cyanosis, or edema. LUE AV fistula site with slight warmth, dark skinned no erythema appreciated. Some minimal tenderness. Bruit and thrill +. Left axillary fold with significant erythema, tenderness, and serosanguinous discharge. Unable to completely open his armpit, adhesions noted. Rt armpit with scarring noted and adhesions but no e.o acute infection. NEUROLOGICAL: Awake and alert. Psych: cooperative. IV line sites with no e/o infection. PORT site with no e.o infection. Assessment & Plan Remarks Acute metabolic encephalopathy on admission (prior h.o odd behaviors per , ? missed HD session, infection low probability of Meningitis clinically) Abnormal LP: given behavior issues would like to r/o neurosyphilis, CSF LEEANNE virus for PML and HIV screen Hiddradenitis suppuritiva with left axillary cellulitis/abscess.\ Left axillary and AV fistula site cellulitis. s/p port placement for IV access ESRD on HD Tues, Thurs, Sat per . ? missed HD session Mild to moderate mitral stenosis on ECHO. Recs: Start Vanco IV in HD. 1st dose. Dosed by me. Start Levaquin oral Start flagyl oral. Will follow Vanco level after 2 doses in HD. Reassess clinically HD site and left axillary region. Follow cultures CSF LEEANNE virus CSF VDRL Follow CSF HSV PCR. HIV antibody screen pending. Hepatitis profile negative. CT left humerus: left AV fistula site induration. CRP and ESR could be high from this chronic process of hidradenitis. Clinically very low probability of bacterial meningitis. d.w patients d.w and RN for patient. Nickie Handley MD Aug 11, 2016 13:01
[2016-08-11] MEDS: metroNIDAZOLE 500 MG TAB PO SCH ×2 (13:36→20:07)
[2016-08-11 13:43] LABS: ANA SCREEN NEG (NEG)
--- NOTE | 2016-08-11 14:01 | RADRPT ---
EXAM DATE/TIME: 08/11/2016 12:59 [facility] COMPARISON: No previous studies available for comparison. INDICATIONS : Altered mental status. MEDICAL HISTORY : Diabetes mellitus type 2. Hypertension. Seizures. SURGICAL HISTORY : rt retina repair, Lt upper arm, Tenkchoff tube, lumbar puncture ENCOUNTER: Subsequent ACUITY: 3 day PAIN SCORE: 0/10 LOCATION: cranial Please note a normal MRA of the brain does not entirely exclude the possibility of a small aneurysm, nor the possibility of distal intracranial vessel disease. TECHNIQUE: 3D time of flight MRA was performed. Source images, multiplanar STS MIP, and 3D volume MIP reconstru ctions were reviewed. FINDINGS: There is excellent visualization of the major intracranial arteries out to the second-order branch ve ssels. There is no evidence for aneurysm, vessel truncation or stenosis, and no evidence for vascula r malformation. CONCLUSION: Normal examination. No evidence of vasculopathy. Kiran Campbell MD on August 11, 2016 at 13:56 Board Certified Radiologist. This report was verified electronically.
[2016-08-11] MEDS: ONDANSETRON HCL 4 MG/2 ML VIAL IV PRN (14:09)
--- NOTE | 2016-08-11 14:11 | RADRPT ---
EXAM DATE/TIME: 08/11/2016 12:59 [facility] COMPARISON: No previous studies available for comparison. INDICATIONS : Altered mental status. MEDICAL HISTORY : Diabetes mellitus type 2. Seizures. Hypertension. gastroparesis SURGICAL HISTORY : rt retina repair, Lt upper arm, Tenkchoff tube, lumbar puncture ENCOUNTER: Subsequent ACUITY: 3 day PAIN SCORE: 0/10 LOCATION: cranial Please note a normal MRA of the brain does not entirely exclude the possibility of a small aneurysm, nor the possibility of distal intracranial vessel disease. TECHNIQUE: MR venography of the brain was performed without contrast with multiplanar and 3D reconstructions. FINDINGS: The transverse sinuses are asymmetric in size. The left transverse sinus, sigmoid sinus and jugular v ein are small compared to the right side. There is no evidence of acute thrombus. Severe sagittal sinus and cortical veins are patent. CONCLUSION: Dural sinus asymmetry which is likely developmental. No definite evidence of dural venous sinus thrombosis. Kiran Campbell MD on August 11, 2016 at 13:59 Board Certified Radiologist. This report was verified electronically.
[2016-08-11] MEDS ORDERED: VANCOMYCIN INJ 1,500 MG in SODIUM CHLORID 0.9% 500 ML INJ 500 ML IV ONE (15:00)
--- NOTE | 2016-08-11 15:56 | HHI.PR ---
Subjective Remarks The patient was resting in bed comfortably. He said he is less confused today. He says his headache is better today. He says his left side is weaker than his right side. Nursing was at the bedside. Objective Vitals Vital Signs Date Time Temp Pulse Resp B/P Pulse Ox O2 Delivery O2 Flow Rate FiO2 08/11/16 12:00 98.1 77 16 136/67 96 08/11/16 08:00 99.3 89 21 155/74 97 08/11/16 07:30 98 Nasal Cannula 4.00 08/11/16 06:00 90 08/11/16 04:00 91 08/11/16 04:00 99.1 91 17 149/61 98 08/11/16 02:00 89 08/11/16 00:00 88 08/11/16 00:00 98.8 88 22 155/73 96 08/10/16 22:00 95 08/10/16 21:49 26 08/10/16 20:08 94 Nasal Cannula 5.00 08/10/16 20:00 101.7 103 20 163/72 92 08/10/16 20:00 103 08/10/16 18:00 93 08/10/16 16:00 91 08/10/16 16:00 100.1 91 30 156/71 97 I/O 08/10/16 08/10/16 08/10/16 08/11/16 08/11/16 08/11/16 07:00 15:00 23:00 07:00 15:00 23:00 Intake Total 563 ml 1061 ml 501 ml 240 ml 310 ml Output Total 350 ml 50 ml 4800 ml 100 ml 0 ml Balance 213 ml 1011 ml -4299 ml 140 ml 310 ml Intake Oral 360 ml 240 ml 240 ml 240 ml IV Total 563 ml 701 ml 261 ml 70 ml Output Urine Total 350 ml 50 ml 100 ml 100 ml 0 ml Hemodialysis 4700 ml Result Diagram: 08/11/16 1049 08/11/16 0459 Imaging Last Impressions Upper Extremity CT 08/11/16 0000 Signed Impressions: Service Date/Time: Thursday, August 11, 2016 08:54 - CONCLUSION: Induration around an AV fistula without a focal abscess seen. Casimiro Zapata MD Head/Brain Mag Res Venography 08/11/16 0000 Signed Impressions: Service Date/Time: Thursday, August 11, 2016 12:59 - CONCLUSION: Dural sinus asymmetry which is likely developmental. No definite evidence of dural venous sinus thrombosis. Kiran Campbell MD Head Magnetic Resonance Angiography 08/11/16 0000 Signed Impressions: Service Date/Time: Thursday, August 11, 2016 12:59 - CONCLUSION: Normal examination. No evidence of vasculopathy. Kiran Campbell MD Chest X-Ray 08/10/16 0925 Signed Impressions: Service Date/Time: Wednesday, August 10, 2016 08:47 - CONCLUSION: 1. Mild cardiomegaly and diffuse increased interstitial markings likely representing edema. Casimiro Zapata MD Upper Extremity Ultrasound 08/10/16 0000 Signed Impressions: Service Date/Time: Wednesday, August 10, 2016 09:54 - CONCLUSION: 1. AV fistula present. This is patent. There is some dilatation of the proximal aspect of the fistula. 2. Dilatation of the axillary vein with some very mild peripheral mural thrombus seen. Casimiro Zapata MD Lumbar Puncture Fluoroscopy 08/09/16 0000 Signed Impressions: Service Date/Time: Tuesday, August 09, 2016 12:45 - CONCLUSION: Uncomplicated fluoroscopically guided lumbar puncture. Opening pressure 26 cm H2O. Nemesio Badillo Jr., MD Abdomen/Pelvis CT 08/08/16 193 Signed Impressions: Service Date/Time: Monday, August 08, 2016 19:58 - CONCLUSION: 1. No obstruction or acute inflammatory changes are seen in the abdomen or pelvis. Normal appendix. 2. Complex cyst of the right kidney as described above. Further characterization with a contrast enhanced study is suggested when clinically feasible. 3. Small stones in a contracted gallbladder. No inflammatory changes. No ductal stone or ductal dilatation. 4. Areas of skin and subcutaneous induration, especially the right buttock and left inguinal regions. These are nonspecific. Also a potential pilonidal cyst. 5. Diffuse sclerosis of the visualized osseous structures typical of chronic renal disease. Possible small brown tumors of the right iliac bone. 6. There is a small fat containing hernia at the umbilicus. Casimiro Hair MD Head CT 08/08/16 9221 Signed Impressions: Service Date/Time: Monday, August 08, 2016 19:00 - CONCLUSION: Normal examination for a patient of this age. No significant change has occurred. Vladimir Singer MD Chest CT 08/08/16 0000 Signed Impressions: Service Date/Time: Monday, August 08, 2016 19:58 - CONCLUSION: 1. Trace failure in the proper clinical setting. 2. Small pericardial effusion, nonspecific. 3. Coronary artery calcification. 4. Upper limits of normal axillary lymph nodes. 5. Bilateral gynecomastia. Casimiro Hair MD Brain MRI 08/08/16 0000 Signed Impressions: Service Date/Time: Monday, August 08, 2016 21:28 - CONCLUSION: 1. No acute infarct. Mild chronic white matter ischemic changes with slight progression since 2012. Vladimir Singer MD Objective Remarks GENERAL: Resting comfortably. SKIN: Warm and dry. HEAD: Atraumatic. Normocephalic. EYES: Pupils equal and round. No scleral icterus. No injection or drainage. ENT: No nasal bleeding or discharge. Mucous membranes pink and moist. NECK: Trachea midline. No JVD. CARDIOVASCULAR: Regular rate and rhythm. No murmur appreciated. still on cardene. RESPIRATORY: No accessory muscle use. Clear to auscultation. Breath sounds equal bilaterally. GASTROINTESTINAL: Abdomen soft, nondistended. no guarding. MUSCULOSKELETAL: No obvious deformities. No clubbing. No cyanosis. No edema. left AVF with palpable thrill. NEUROLOGICAL: Awake and alert. Normal speech, very mild left facial droop, LUE 4 +/5, LLE 4+/5. all other extremities CRUZITO 5/5. sensation grossly intact. PSYCH: Flattened affect. A/P Assessment and Plan Encephalopathy With left sided weakness. Appreciate ID and neurology input. MRI with slight right-sided cortical enhancement. LP with slightly elevated protein. EEG with generalized slowing. Improving. - frequent neuro checks. - possibly hypertensive encephalopathy. - consult psych. - Ativan for anxiety. - antibiotics per ID. On vanco, Levaquin and Flagyl. Respiratory failure Likely s/t pulmonary edema. - volume management with dialysis. - oxygen and nebs as needed. Hypertensive emergency With elevated troponin. Appreciate cardiology consult. Nicardipine drip to control hypertension. - continue losartan, carvedilol, hydralazine and Procardia. - ASA. - hydralazine and labetalol prn. Hyperkalemia K 6 08/11. - Kayexalate per nephrology. - follow BMP. End-stage renal disease On hemodialysis - dialysis per nephrology. Diabetes mellitus Glucose well controlled 08/11. - check an A1c. - SSI for glycemic control. Prophylaxis: PPI/SCDs/subcutaneous heparin. Benja Lux DO Aug 11, 2016 15:55
--- NOTE | 2016-08-11 17:13 | PD.CONS ---
Provisional Diagnosis Admission Date Aug 08, 2016 at 20:22 [place] I. Adjustment disorder with depressed mood and anxiety Villanova II. Deferred Villanova III. DM, HTN, ESRD, hyperkalemia, encephalopathy Villanova IV. 56 History of Present Illness Service Psychiatry Consult Requested By Primary Care Physician Blair Richardson MD HPI The patient is a 45-year-old man, domicile with his in [place], unemployed, disabled, with psychiatric history of aggression, anxiety, no previous psychiatric hospitalizations, 1 previous suicidal attempt by overdosing, no outpatient psychiatric care, not taking any psychotropic at this moment, medical history of diabetes mellitus, hypertension, ESRD, hospitalized due to respiratory failure, hyperkalemia and encephalopathy. Consulted to psychiatry due to symptomatology of anxiety and depression. On psychiatric evaluation today patient was found in the ICU laying in his bed hooked to cardiac monitors, his Charley Jimenez, was at bedside. At the beginning of the evaluation the patient was reluctant to speak with psychiatry, upset stating that he is not crazy and he does not need a psychiatrist. However , he was able to be reassured and redirected and he became a little more cooperative. Patient stated that he is very medically and he understands that he has very chronic and "mortal" medical conditions that are very difficult to treat "and living with the situation is not fun". He says that he feels frustrated at this moment because he is tired to be in hospital and there is not a lot of explanation given to him at this moment about what is going on during this hospitalization. Patient reports overwhelming frustration, hopelessness, helplessness, sadness, but denies sleep problems, denies problems with concentration, he denies suicidal or homicidal ideation. He also denies visual and auditory hallucinations. Patient is fully oriented 3, no confusion , no delirium is observed at this moment. Patient denies the use of drugs and alcohol. His use as collateral information states that the patient at baseline is an irritable and angry person. He is very sensitive by being in the hospital and seen for many doctors and not being explained about what is going on. She confirms that the patient has a suicidal attempt by OD in the context of frustration with his medical history in the past, but they decided not to look for psychiatric help at that moment. She says that one time he went for some psychotherapy, but he did like a he stopped going. Review of Systems Constitutional: DENIES: Diaphoretic episodes, Fatigue, Fever, Weight gain, Weight loss, Chills, Dizziness, Change in appetite, Night Sweats Endocrine: DENIES: Heat/cold intolerance, Polydipsia, Polyuria, Polyphagia Eyes: DENIES: Blurred vision, Diplopia, Eye inflammation, Eye pain, Vision loss , Photosensitivity, Double Vision Ears, nose, mouth, throat: DENIES: Tinnitus, Hearing loss, Vertigo, Nasal discharge, Oral lesions, Throat pain, Hoarseness, Ear Pain, Running Nose, Epistaxis, Sinus Pain, Toothache, Odynophagia Respiratory: DENIES: Apneas, Cough, Snoring, Wheezing, Hemoptysis, Sputum production, Shortness of breath Cardiovascular: DENIES: Chest pain, Palpitations, Syncope, Dyspnea on Exertion , PND, Lower Extremity Edema, Orthopnea, Claudication Musculoskeletal: DENIES: Joint pain, Muscle aches, Stiffness, Joint Swelling, Back pain, Neck pain Integumentary: DENIES: Abnormal pigmentation, Nail changes, Pruritus, Rash Hematologic/lymphatic: DENIES: Bruising, Lymphadenopathy Immunologic/allergic: DENIES: Eczema, Urticaria Neurologic: DENIES: Abnormal gait, Headache, Localized weakness, Paresthesias, Seizures, Speech Problems, Tremor, Poor Balance Psychiatric: COMPLAINS OF: Depression, DENIES: Anxiety, Confusion, Mood changes, Hallucinations, Agitation, Suicidal Ideation, Homicidal Ideation, Delusions Past Family Social History Coded Allergies: Contrast Media (Unverified Allergy, Severe, nausea/vomiting, 08/08/16) causes n/v HAD TEST TODAY 11/15/11 TOOK BENADRYL AND DID OK. Reglan (Verified Allergy, Severe, ANXIETY, 08/08/16) Seafood (Verified Allergy, Severe, SWELLING-CANT BREATH-HIVES, 08/08/16) Active Scripts Erythromycin Base 250 Mg [id number] Mg PO TIDAC #60 TAB Ref 0 Prov:Benja Rodriguez MD R1 05/31/16 Promethazine (Phenergan)25 Mg Tab25 Mg PO Q6H PRN (Nausea/Vomiting) #60 TAB Ref 0 Prov:Benja Rodriguez MD R1 05/31/16 Ondansetron Odt (Zofran Odt)4 Mg Tab4 Mg SL Q6HR PRN (Nausea/Vomiting) #60 TAB Ref 0 Prov:Benja Rodriguez MD R1 05/31/16 Lorazepam (Ativan)1 Mg Tab1 Mg PO Q6H PRN (ANXIETY AND/OR AGITATION) #60 TAB Ref 0 Prov:Benja Rodriguez MD R1 05/31/16 Hydrocodone-Acetaminophen (Lortab)5-325 Mg Tab1-2 Tab PO Q6H PRN (PAIN) #20 TAB Prov:Mati Gonsales MD 04/20/16 Sulfamethoxazole-Trimethoprim (Bactrim DS)800-160 Mg Tab1 Tab PO BID #20 TAB Prov:Mati Gonsales MD 04/20/16 Reported Medications Vitamin B Cmplx/Vit C/Folic AC (Nephro-Adan Rx)1 Tab1 Tab PO 04/20/16 Insulin Human Isophane-Regular 70-30 Inj (Novolin 70-30 Inj)1,000 Unit/10 Ml Vial1 Units SQ Ref 0 04/20/16 Losartan 100 Mg Cbi024 Mg PO HS #30 TAB Ref 0 04/20/16 Hydralazine 50 Mg Tab50 Mg PO TID Ref 0 Take with a meal 04/20/16 Finasteride 5 Mg Tab5 Mg PO DAILY #30 TAB Ref 0 Do not crush. 04/20/16 Doxepin 100 Mg Qjj380 Mg PO HS #30 CAP Ref 0 04/20/16 Carvedilol 12.5 Mg Tab12.5 Mg PO BID #60 TAB Ref 0 04/20/16 Calcium Acetate (Phosphate Bin (Calcium Acetate)667 Mg Cap 04/20/16 Current Medications Medications (Trade) Dose Ordered Sig/Bulmaro Route Start Time Stop Time Status Last Admin (Cardene Inj/NS 250 ml Inj) 260 ml @ 0 mls/hr TITRATE IV 08/08/16 19:45 08/10/16 16:46 (NS Flush) 2 ml BID IV FLUSH 08/09/16 09:00 08/11/16 08:32 (Tylenol) 650 mg Q6H PRN PO 08/08/16 21:30 08/11/16 08:31 (Zofran Inj) 4 mg Q6H PRN IV 08/08/16 21:30 08/11/16 14:09 (Dulcolax Ec) 10 mg DAILY PRN PO 08/08/16 21:30 (Senokot) 17.2 mg Q12H PRN PO 08/08/16 21:30 Miscellaneous Information 1 Q361D XX 08/08/16 21:30 (Chlorhexidine 2% Cloth) 3 pack Taper DAILY@04 TOP 08/09/16 04:00 08/05/17 03:59 08/11/16 04:00 (Chlorhexidine 2% Cloth) 3 pack UNSCH PRN TOP 08/08/16 21:30 (Trandate Inj) 20 mg Q2HR PRN IV PUSH 08/08/16 21:30 08/10/16 17:22 (NovoLOG SUPPLEMENTAL SCALE) 1 Q6HR SQ 08/09/16 00:00 (D50w (Vial) Inj) 25 ml UNSCH PRN IV 08/08/16 22:00 08/09/16 00:23 (Glucagon Inj) 1 mg UNSCH PRN IM/SQ 08/08/16 22:00 (Protonix) 40 mg DAILY PO 08/09/16 10:00 08/11/16 08:32 (Proscar) 5 mg DAILY PO 08/09/16 16:00 08/11/16 08:32 (Apresoline) 50 mg TID PO 08/09/16 18:00 08/11/16 12:07 (Coreg) 12.5 mg BID PO 08/09/16 16:00 08/11/16 08:32 (Cozaar) 100 mg HS PO 08/09/16 16:00 08/10/16 20:20 (Apresoline Inj) 10 mg Q30M PRN IV PUSH 08/09/16 16:00 08/10/16 18:37 (Dilaudid Pf Inj) 0.5 mg Q4H PRN IV PUSH 08/09/16 18:15 08/11/16 13:36 (Ativan) 0.5 mg Q6H PRN PO 08/09/16 23:00 08/11/16 08:32 (Renvela) 1,600 mg TIDAC PO 08/10/16 08:00 08/11/16 12:07 Vitamin B Complex/ Vit C/Folic Acid 1 cap 1 cap DAILY PO 08/10/16 09:00 08/11/16 08:31 (NS 1000 ml Inj) 1,000 ml @ 0 mls/hr Q0M PRN IV 08/09/16 22:56 08/10/16 16:51 Heparin Sodium (Porcine) 8000 units 8,000 units UNSCH PRN IVF 08/09/16 23:00 Sodium Chloride 1,000 ml @ 200 mls/hr Q5H PRN IV 08/09/16 22:56 (NS 1000 ml Inj) 1,000 ml @ 0 mls/hr Q0M PRN IV 08/09/16 22:56 (Mannitol Inj) 12.5 gm UNSCH PRN IV 08/09/16 23:00 (Albumin 25% Inj) 25 gm UNSCH PRN IV 08/09/16 23:00 (NS Flush) 5 ml UNSCH PRN IVF 08/09/16 23:00 08/10/16 18:38 (Heparin Inj) UNSCH PRN .XX 08/09/16 23:00 (Gentamicin (Dialysis) Inj) 20 mg UNSCH PRN IV 08/09/16 23:00 (Zofran Inj) 4 mg UNSCH PRN IV 08/09/16 23:00 (Tylenol) 650 mg UNSCH PRN PO 08/09/16 23:00 (Benadryl) 25 mg UNSCH PRN PO 08/09/16 23:00 (Nitrostat Sl) 0.4 mg UNSCH PRN SL 08/09/16 23:00 (Catapres) 0.1 mg UNSCH PRN PO 08/09/16 23:00 (Epogen Inj) 10,000 units UNSCH PRN IV 08/09/16 23:00 08/10/16 16:50 (Gelfoam 12 Mm/7 Mm Top) 1 foam UNSCH PRN TOP 08/09/16 23:00 08/10/16 16:51 Nifedipine 20 mg 20 mg Q8HR PO 08/10/16 16:42 08/11/16 13:36 (Vancomycin Inj/ NS 500 ml Inj) 500 ml @ 250 mls/hr ONCE ONCE IV 08/11/16 15:00 08/11/16 16:59 08/11/16 14:39 (Levaquin) 500 mg Q48H PO 08/12/16 14:00 (Flagyl) 500 mg Q8HR PO 08/11/16 14:00 08/11/16 13:36 Family History Denies Physical Exam Vital Signs Vital Signs Date Time Temp Pulse Resp B/P Pulse Ox O2 Delivery O2 Flow Rate FiO2 08/11/16 16:00 98.4 87 19 136/66 94 08/11/16 07:30 Nasal Cannula 4.00 08/09/16 19:52 21 I/O 08/10/16 08/10/16 08/11/16 08:00 16:00 00:00 Intake Total 563 ml 1061 ml 501 ml Output Total 350 ml 150 ml 4700 ml Balance 213 ml 911 ml -4199 ml Mental Status Examination Appearance man, who appears older than his stated age, good hygiene, hospital [facility], irritable and oppositional Speech: Hesitant, Slow Orientation: x3 Memory: Impaired (describe) Thought Process: Goal Directed Thought Content: Unremarkable Attention and Concentration: Good Suicidal Ideation: No Previous Suicide Attempts: No Homicidal Ideation: No Insight: Fair Affect: Irritable Mood: Angry Motor Activity: Normal gait Assessment & Plan Problem List: (1) Adjustment disorder with mixed anxiety and depressed mood Assessment & Plan: The patient is a 45-year-old man, domicile with his in [place], unemployed, disabled, with psychiatric history of aggression, anxiety, no previous psychiatric hospitalizations, 1 previous suicidal attempt by overdosing, no outpatient psychiatric care, not taking any psychotropic at this moment, medical history of diabetes mellitus, hypertension , ESRD, hospitalized due to respiratory failure, hyperkalemia and encephalopathy. Consulted to psychiatry due to symptomatology of anxiety and depression. On psychiatric evaluation today patient presented moderate symptoms of depression and anxiety secondary to current medical conditions and the distress of hospitalization. Patient denies suicidal or homicidal ideation , he denies visual and auditory hallucinations. Patient is fully oriented 3, no confusion, no delirium, observed at this moment. Patient does not meet criteria for psychiatric admission at this moment. Would recommend Remeron 15 mg at bedtime to help with depression and insomnia. Ativan 1 mg by mouth every 8 hours when necessary for anxiety. Extensive psychoeducation, supportive motivation provided. Consult appreciated. ICD Code: F43.23 Assessment & Plan Estimated LOS: Russell Johnson MD Aug 11, 2016 17:13
--- NOTE | 2016-08-11 17:46 | PD.CARD.PN ---
Subjective Subjective Remarks Patient seen earlier No chest pain, no shortness of breath Objective Medications Current Medications Medications (Trade) Dose Ordered Sig/Bulmaro Route Start Time Stop Time Status Last Admin (Cardene Inj/NS 250 ml Inj) 260 ml @ 0 mls/hr TITRATE IV 08/08/16 19:45 08/10/16 16:46 (NS Flush) 2 ml BID IV FLUSH 08/09/16 09:00 08/11/16 08:32 (Tylenol) 650 mg Q6H PRN PO 08/08/16 21:30 08/11/16 08:31 (Zofran Inj) 4 mg Q6H PRN IV 08/08/16 21:30 08/11/16 14:09 (Dulcolax Ec) 10 mg DAILY PRN PO 08/08/16 21:30 (Senokot) 17.2 mg Q12H PRN PO 08/08/16 21:30 Miscellaneous Information 1 Q361D XX 08/08/16 21:30 (Chlorhexidine 2% Cloth) 3 pack Taper DAILY@04 TOP 08/09/16 04:00 08/05/17 03:59 08/11/16 04:00 (Chlorhexidine 2% Cloth) 3 pack UNSCH PRN TOP 08/08/16 21:30 (Trandate Inj) 20 mg Q2HR PRN IV PUSH 08/08/16 21:30 08/10/16 17:22 (NovoLOG SUPPLEMENTAL SCALE) 1 Q6HR SQ 08/09/16 00:00 (D50w (Vial) Inj) 25 ml UNSCH PRN IV 08/08/16 22:00 08/09/16 00:23 (Glucagon Inj) 1 mg UNSCH PRN IM/SQ 08/08/16 22:00 (Protonix) 40 mg DAILY PO 08/09/16 10:00 08/11/16 08:32 (Proscar) 5 mg DAILY PO 08/09/16 16:00 08/11/16 08:32 (Apresoline) 50 mg TID PO 08/09/16 18:00 08/11/16 12:07 (Coreg) 12.5 mg BID PO 08/09/16 16:00 08/11/16 08:32 (Cozaar) 100 mg HS PO 08/09/16 16:00 08/10/16 20:20 (Apresoline Inj) 10 mg Q30M PRN IV PUSH 08/09/16 16:00 08/10/16 18:37 (Dilaudid Pf Inj) 0.5 mg Q4H PRN IV PUSH 08/09/16 18:15 08/11/16 13:36 (Ativan) 0.5 mg Q6H PRN PO 08/09/16 23:00 08/11/16 08:32 (Renvela) 1,600 mg TIDAC PO 08/10/16 08:00 08/11/16 12:07 Vitamin B Complex/ Vit C/Folic Acid 1 cap 1 cap DAILY PO 08/10/16 09:00 08/11/16 08:31 (NS 1000 ml Inj) 1,000 ml @ 0 mls/hr Q0M PRN IV 08/09/16 22:56 08/10/16 16:51 Heparin Sodium (Porcine) 8000 units 8,000 units UNSCH PRN IVF 08/09/16 23:00 Sodium Chloride 1,000 ml @ 200 mls/hr Q5H PRN IV 08/09/16 22:56 (NS 1000 ml Inj) 1,000 ml @ 0 mls/hr Q0M PRN IV 08/09/16 22:56 (Mannitol Inj) 12.5 gm UNSCH PRN IV 08/09/16 23:00 (Albumin 25% Inj) 25 gm UNSCH PRN IV 08/09/16 23:00 (NS Flush) 5 ml UNSCH PRN IVF 08/09/16 23:00 08/10/16 18:38 (Heparin Inj) UNSCH PRN .XX 08/09/16 23:00 (Gentamicin (Dialysis) Inj) 20 mg UNSCH PRN IV 08/09/16 23:00 (Zofran Inj) 4 mg UNSCH PRN IV 08/09/16 23:00 (Tylenol) 650 mg UNSCH PRN PO 08/09/16 23:00 (Benadryl) 25 mg UNSCH PRN PO 08/09/16 23:00 (Nitrostat Sl) 0.4 mg UNSCH PRN SL 08/09/16 23:00 (Catapres) 0.1 mg UNSCH PRN PO 08/09/16 23:00 (Epogen Inj) 10,000 units UNSCH PRN IV 08/09/16 23:00 08/10/16 16:50 (Gelfoam 12 Mm/7 Mm Top) 1 foam UNSCH PRN TOP 08/09/16 23:00 08/10/16 16:51 (Procardia) 20 mg Q8HR PO 08/10/16 16:42 08/11/16 13:36 (Levaquin) 500 mg Q48H PO 08/12/16 14:00 (Flagyl) 500 mg Q8HR PO 08/11/16 14:00 08/11/16 13:36 (Remeron) 15 mg HS PO 08/11/16 21:00 Vital Signs / I&O Vital Signs Date Time Temp Pulse Resp B/P Pulse Ox O2 Delivery O2 Flow Rate FiO2 08/11/16 16:00 98.4 87 19 136/66 94 08/11/16 12:00 98.1 77 16 136/67 96 08/11/16 08:00 99.3 89 21 155/74 97 08/11/16 07:30 98 Nasal Cannula 4.00 08/11/16 06:00 90 08/11/16 04:00 91 08/11/16 04:00 99.1 91 17 149/61 98 08/11/16 02:00 89 08/11/16 00:00 88 08/11/16 00:00 98.8 88 22 155/73 96 08/10/16 22:00 95 08/10/16 21:49 26 08/10/16 20:08 94 Nasal Cannula 5.00 08/10/16 20:00 101.7 103 20 163/72 92 08/10/16 20:00 103 08/10/16 18:00 93 I/O 08/10/16 08/10/16 08/10/16 08/11/16 08/11/16 08/11/16 07:00 15:00 23:00 07:00 15:00 23:00 Intake Total 563 ml 1061 ml 501 ml 240 ml 310 ml Output Total 350 ml 50 ml 4800 ml 100 ml 0 ml Balance 213 ml 1011 ml -4299 ml 140 ml 310 ml Intake Oral 360 ml 240 ml 240 ml 240 ml IV Total 563 ml 701 ml 261 ml 70 ml Output Urine Total 350 ml 50 ml 100 ml 100 ml 0 ml Hemodialysis 4700 ml Physical Exam GENERAL: NAD, Alert and awake SKIN: Warm and dry. HEAD: Atraumatic. Normocephalic. EYES: Pupils equal and round. No scleral icterus. No injection or drainage. ENT: No nasal bleeding or discharge. Mucous membranes pink and moist. NECK: Trachea midline. No JVD. CARDIOVASCULAR: Regular rate and rhythm. RESPIRATORY: No accessory muscle use. Clear to auscultation. Breath sounds equal bilaterally. GASTROINTESTINAL: Abdomen soft, non-tender, nondistended. Hepatic and splenic margins not palpable. MUSCULOSKELETAL: Extremities without clubbing, cyanosis, or edema. No obvious deformities. NEUROLOGICAL: Awake and alert. No obvious cranial nerve deficits. Motor grossly within normal limits. Five out of 5 muscle strength in the arms and legs. Normal speech. PSYCHIATRIC: Appropriate mood and affect; insight and judgment normal. Laboratory Laboratory Tests Test 08/11/16 08/11/16 08/11/16 04:59 10:49 16:45 Sodium Level 142 MEQ/L Potassium Level 6.0 MEQ/L 4.6 MEQ/L Chloride Level 103 MEQ/L Carbon Dioxide Level 23.0 MEQ/L Anion Gap 16 MEQ/L Blood Urea Nitrogen 50 MG/DL Creatinine 8.95 MG/DL Estimat Glomerular Filtration 8 ML/MIN Rate Random Glucose 88 MG/DL Calcium Level 10.2 MG/DL White Blood Count 11.4 TH/MM3 Red Blood Count 3.18 MIL/MM3 Hemoglobin 8.8 GM/DL Hematocrit 27.3 % Mean Corpuscular Volume 85.6 FL Mean Corpuscular Hemoglobin 27.7 PG Mean Corpuscular Hemoglobin 32.4 % Concent Red Cell Distribution Width 20.0 % Platelet Count 394 TH/MM3 Mean Platelet Volume 7.0 FL Assessment and Plan Problem List: (1) Altered mental status (2) Hypertensive emergency (3) Accelerated hypertension (4) CVA (cerebral vascular accident) (5) Elevated troponin Assessment and Plan 1) Continue with neurology work up 2) Mild elevation of troponin in ESRD patient, most likely due to hypertensive emergency, no further ischemic evaluation with current neurologic complications , medical management 3) Blood pressure better controlled 4) Fluid overload state this am, HD per nephrology Problem Qualifiers (1) Altered mental status: Qualified Code: R41.0 - Disorientation (2) CVA (cerebral vascular accident): Qualified Code: I63.9 - Cerebrovascular accident (CVA), unspecified mechanism Marshall Bruner DO Aug 11, 2016 17:46
[2016-08-11] MEDS: MIRTAZAPINE 15 MG TAB PO SCH (20:07)
[2016-08-11] MEDS: LOSARTAN 50 MG TAB PO SCH (20:07)
[2016-08-12] VITALS (14 sets, daily range): BP systolic 138–165; BP diastolic 64–78; PULSE 87–153; RESP 17–28; TEMP 98.7–99.3; O2SAT 90–100
[2016-08-12] MEDS: HYDROmorphone HCL PF 1 MG/ML VIAL IV PUSH PRN ×3 (01:20→20:23)
[2016-08-12 03:11] LABS: HEMATOCRIT 26.4 % (39.0-51.0); MEAN CORPUSCULAR HEMOGLOBIN 27.9 PG (27.0-34.0); MEAN CORPUSCULAR HGB CONC 32.4 % (32.0-36.0); PLATELET COUNT 384 TH/MM3 (150-450); RED BLOOD COUNT 3.07 MIL/MM3 (4.50-5.90); RED CELL DISTRIBUTION WIDTH 20.2 % (11.6-17.2); REVIEW FLAG FINAL; WHITE BLOOD COUNT 13.7 TH/MM3 (4.0-11.0)
[2016-08-12 03:37] LABS: BICARBONATE 27.9 MEQ/L (21.0-32.0); POTASSIUM 4.8 MEQ/L (3.5-5.1)
[2016-08-12] MEDS: CHLORHEXIDINE GLUCONATE 2 % 1 PACK (2 CLOTHS) TOP SCH (04:00)
[2016-08-12] MEDS: metroNIDAZOLE 500 MG TAB PO SCH ×3 (05:16→20:22)
[2016-08-12] MEDS: NIFEdipine 20 MG CAP PO SCH ×3 (05:16→20:22)
[2016-08-12] MEDS: INSULIN ASPART SUPPLEMENTAL SCALE SQ SCH ×4 (05:16→23:41)
[2016-08-12] MEDS: ONDANSETRON HCL 4 MG/2 ML VIAL IV PRN ×2 (05:24→17:28)
[2016-08-12] MEDS ORDERED: DIATRIZOATE MEGLUM/DIATRIZOATE SOD 9 ML CUP PO ONE (07:38)
[2016-08-12] MEDS: SEVELAMER CARBONATE 800 MG TAB PO SCH ×3 (08:00→17:18)
[2016-08-12] MEDS: SODIUM CHLORIDE 0.9% FLUSH 5 ML FLUSH IV FLUSH SCH ×2 (09:00→20:24)
[2016-08-12] MEDS: PANTOPRAZOLE SOD 40 MG DELAYED RELEASE TAB PO SCH (09:00)
[2016-08-12] MEDS: hydrALAZINE HCL 50 MG TAB PO SCH ×3 (09:00→17:18)
[2016-08-12] MEDS: FINASTERIDE 5 MG TAB PO SCH (09:00)
[2016-08-12] MEDS: CARVEDILOL 12.5 MG TAB PO SCH ×2 (09:00→20:22)
[2016-08-12] MEDS: VITAMIN B CMPLX/VITC/FOLIC AC CAP PO SCH (09:00)
[2016-08-12] MEDS: GELATIN 12 MM/7 MM FOAM TOP PRN (09:16)
[2016-08-12] MEDS: SODIUM CHLOR 0.9% 1000 ML INJ 1,000 ML IV PRN (09:16)
[2016-08-12] MEDS: EPOETIN ALFA 10,000 UNITS/ML VIAL IV PRN (09:16)
[2016-08-12] MEDS: VANCOMYCIN INJ 1,500 MG in SODIUM CHLORID 0.9% 500 ML INJ 500 ML IV SCH (09:22)
--- NOTE | 2016-08-12 13:16 | HHI.IDPN ---
Subjective Subjective Remarks is a 45 y.o AAM with PMHx of ESRD on HD Tues, Thurs, Sat, Hidradenitis suppuritiva who has recd IV antibiotics in past, PORT in place for IV access issues, prior h/o TIA, prior h/o seizures. Now being followed for Left AV fistula cellulitis as well as left axillary cellulitis secondary to Hidradenitis suppuritiva. Abnormal LP work up in progress. Gram stain negative, CX neg for bacterial, HSV 1/2 negative. Overnight events reviewed Fevers 101 F overnight Much more alert without meningitis treatment, No rash No diarrhea CSF LEEANNE and VDRL pending given abnormal total protein in CSF. MRI/MRA.MRV planned for today. Antibiotics Vanco IV Levaquin oral Flagyl oral Lines Line sites no e/o infection Past Medical History reviewed Allergies: Coded Allergies: Contrast Media (Unverified Allergy, Severe, nausea/vomiting, 08/08/16) causes n/v HAD TEST TODAY 11/15/11 TOOK BENADRYL AND DID OK. Reglan (Verified Allergy, Severe, ANXIETY, 08/08/16) Seafood (Verified Allergy, Severe, SWELLING-CANT BREATH-HIVES, 08/08/16) Objective . Vital Signs Date Time Temp Pulse Resp B/P Pulse Ox O2 Delivery O2 Flow Rate FiO2 08/12/16 12:00 100 08/12/16 12:00 98.9 100 17 165/76 99 08/12/16 10:00 96 08/12/16 09:18 97 Nasal Cannula 3.00 08/12/16 08:00 99.1 87 21 165/77 99 08/12/16 08:00 87 08/12/16 06:00 90 08/12/16 04:00 89 28 162/78 98 08/12/16 04:00 89 08/12/16 02:00 92 08/12/16 00:00 99.3 97 21 164/74 99 08/12/16 00:00 97 08/11/16 22:00 90 08/11/16 20:34 97 Nasal Cannula 4.00 08/11/16 20:00 94 08/11/16 20:00 98.6 94 20 155/72 99 08/11/16 16:00 98.4 87 19 136/66 94 08/11/16 08/11/1608/12/17 15:00 23:00 07:00 Intake Total 310 ml 240 ml Output Total 0 ml 50 ml 150 ml Balance 310 ml -50 ml 90 ml Intake Oral 240 ml 240 ml IV Total 70 ml Output Urine Total 0 ml 50 ml 150 ml . Laboratory Tests Test 08/11/16 08/12/16 10:49 02:56 White Blood Count 11.4 TH/MM3 13.7 TH/MM3 Red Blood Count 3.18 MIL/MM3 3.07 MIL/MM3 Hemoglobin 8.8 GM/DL 8.6 GM/DL Hematocrit 27.3 % 26.4 % Mean Corpuscular Volume 85.6 FL 86.0 FL Mean Corpuscular Hemoglobin 27.7 PG 27.9 PG Mean Corpuscular Hemoglobin 32.4 % 32.4 % Concent Red Cell Distribution Width 20.0 % 20.2 % Platelet Count 394 TH/MM3 384 TH/MM3 Mean Platelet Volume 7.0 FL 7.2 FL Laboratory Tests Test 08/11/16 08/11/16 08/12/16 04:59 16:45 02:56 Sodium Level 142 MEQ/L 141 MEQ/L Potassium Level 6.0 MEQ/L 4.6 MEQ/L 4.8 MEQ/L Chloride Level 103 MEQ/L 101 MEQ/L Carbon Dioxide Level 23.0 MEQ/L 27.9 MEQ/L Anion Gap 16 MEQ/L 12 MEQ/L Blood Urea Nitrogen 50 MG/DL 56 MG/DL Creatinine 8.95 MG/DL 10.14 MG/DL Estimat Glomerular Filtration 8 ML/MIN 7 ML/MIN Rate Random Glucose 88 MG/DL 147 MG/DL Calcium Level 10.2 MG/DL 9.5 MG/DL Lipase 103 U/L Microbiology Date/Time Procedure Status Source Growth 08/09/16 14:38 Gram Stain - Final Complete Cerebral Spinal Fluid Lumbar Puncture 08/09/16 14:38 CSF Culture - Final Complete Cerebral Spinal Fluid Lumbar Puncture NO GROWTH IN 72 HOURS 08/09/16 14:38 Acid Fast Stain - Final Resulted Cerebral Spinal Fluid Lumbar Puncture NO ACID FAST BACILLI SEEN 08/09/16 14:38 Mycobacterial Culture Resulted Cerebral Spinal Fluid Lumbar Puncture Pending 08/09/16 14:38 Fungal Smear - Final Resulted Cerebral Spinal Fluid Lumbar Puncture NO FUNGAL ELEMENTS SEEN. 08/09/16 14:38 Fungal Culture Resulted Cerebral Spinal Fluid Lumbar Puncture Pending 08/09/16 20:00 Aerobic Blood Culture - Preliminary Resulted Blood Peripheral NO GROWTH IN 3 DAYS 08/09/16 20:00 Anaerobic Blood Culture - Preliminary Resulted Blood Peripheral NO GROWTH IN 3 DAYS 08/09/16 20:05 Aerobic Blood Culture - Preliminary Resulted Blood Peripheral NO GROWTH IN 3 DAYS 08/09/16 20:05 Anaerobic Blood Culture - Preliminary Resulted Blood Peripheral NO GROWTH IN 3 DAYS 08/10/16 13:33 Aerobic Blood Culture - Preliminary Resulted Blood Other NO GROWTH IN 2 DAYS 08/10/16 13:33 Anaerobic Blood Culture - Preliminary Resulted Blood Other NO GROWTH IN 2 DAYS Imaging Last Impressions Upper Extremity CT 08/11/16 0000 Signed Impressions: Service Date/Time: Thursday, August 11, 2016 08:54 - CONCLUSION: Induration around an AV fistula without a focal abscess seen. Casimiro Zapata MD Chest X-Ray 08/10/16 0925 Signed Impressions: Service Date/Time: Wednesday, August 10, 2016 08:47 - CONCLUSION: 1. Mild cardiomegaly and diffuse increased interstitial markings likely representing edema. Casimiro Zapata MD Upper Extremity Ultrasound 08/10/16 0000 Signed Impressions: Service Date/Time: Wednesday, August 10, 2016 09:54 - CONCLUSION: 1. AV fistula present. This is patent. There is some dilatation of the proximal aspect of the fistula. 2. Dilatation of the axillary vein with some very mild peripheral mural thrombus seen. Casimiro Zapata MD Lumbar Puncture Fluoroscopy 08/09/16 0000 Signed Impressions: Service Date/Time: Tuesday, August 09, 2016 12:45 - CONCLUSION: Uncomplicated fluoroscopically guided lumbar puncture. Opening pressure 26 cm H2O. Nemesio Badillo Jr., MD Abdomen/Pelvis CT 08/08/161932 Signed Impressions: Service Date/Time: Monday, August 08, 2016 19:58 - CONCLUSION: 1. No obstruction or acute inflammatory changes are seen in the abdomen or pelvis. Normal appendix. 2. Complex cyst of the right kidney as described above. Further characterization with a contrast enhanced study is suggested when clinically feasible. 3. Small stones in a contracted gallbladder. No inflammatory changes. No ductal stone or ductal dilatation. 4. Areas of skin and subcutaneous induration, especially the right buttock and left inguinal regions. These are nonspecific. Also a potential pilonidal cyst. 5. Diffuse sclerosis of the visualized osseous structures typical of chronic renal disease. Possible small brown tumors of the right iliac bone. 6. There is a small fat containing hernia at the umbilicus. Casimiro Hair MD Head CT 08/08/16 1853 Signed Impressions: Service Date/Time: Monday, August 08, 2016 19:00 - CONCLUSION: Normal examination for a patient of this age. No significant change has occurred. Vladimir Singer MD Chest CT 08/08/16 0000 Signed Impressions: Service Date/Time: Monday, August 08, 2016 19:58 - CONCLUSION: 1. Trace failure in the proper clinical setting. 2. Small pericardial effusion, nonspecific. 3. Coronary artery calcification. 4. Upper limits of normal axillary lymph nodes. 5. Bilateral gynecomastia. Casimiro Hair MD Brain MRI 08/08/16 0000 Signed Impressions: Service Date/Time: Monday, August 08, 2016 21:28 - CONCLUSION: 1. No acute infarct. Mild chronic white matter ischemic changes with slight progression since 2012. Vladimir Singer MD Physical Exam GENERAL: This is a well-nourished, well-developed patient, in no apparent distress. SKIN: No rashes, ecchymoses or lesions. Cool and dry. HEAD: Atraumatic. Normocephalic. No temporal or scalp tenderness. EYES: Pupils equal round and reactive. Extraocular motions intact. No scleral icterus. No injection or drainage. ENT: Nose without bleeding, purulent drainage or septal hematoma. Throat without erythema, tonsillar hypertrophy or exudate. Uvula midline. Airway patent. NECK: Trachea midline. Supple, nontender, no meningeal signs. CARDIOVASCULAR: HS audible. No murmur appreciated. RESPIRATORY: Clear to auscultation. Breath sounds equal bilaterally. GASTROINTESTINAL: Abdomen soft, non-tender, nondistended. MUSCULOSKELETAL: Extremities without clubbing, cyanosis, or edema. LUE AV fistula site with slight warmth, dark skinned no erythema appreciated. Some minimal tenderness. Bruit and thrill +. Left axillary fold with significant erythema, tenderness, and serosanguinous discharge. Unable to completely open his armpit, adhesions noted. Rt armpit with scarring noted and adhesions but no e.o acute infection. NEUROLOGICAL: Awake and alert. Psych: cooperative. IV line sites with no e/o infection. PORT site with no e.o infection. Assessment & Plan Remarks Acute metabolic encephalopathy on admission Abnormal LP: given behavior issues would like to r/o neurosyphilis, CSF LEEANNE virus for PML and HIV screen Hiddradenitis suppuritiva with left axillary cellulitis/abscess.\ Left axillary and AV fistula site cellulitis. ? Pilonidal cyst and induration in buttock region ? cellulitis. Complex cyst on kidney in CT non contrast. s/p port placement for IV access ESRD on HD Tues, Thurs, Sat per . ? missed HD session Mild to moderate mitral stenosis on ECHO. Recs: Continue Vanco IV in HD. Continue Levaquin oral Continue flagyl oral. Reassess clinically HD site and left axillary region. 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 Follow cultures Follow CSF LEEANNE virus, CSF VDRL HIV negative. Hepatitis profile negative. CT left humerus: left AV fistula site induration. CRP and ESR could be high from this chronic process of hidradenitis. Clinically very low probability of bacterial meningitis. 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 I will be OOT from 08/13/16 to 08/20/16 Other ID MDs to cover for me. Nickie Handley MD Aug 12, 2016 13:16
[2016-08-12] MEDS: hydrALAZINE HCL 20 MG/ML VIAL IV PUSH PRN (13:21)
[2016-08-12] MEDS: LEVOFLOXACIN 500 MG TAB PO SCH (13:21)
--- NOTE | 2016-08-12 13:42 | PD.CARD.PN ---
Subjective Subjective Remarks No events over night, mental feels better No chest pain, no shortness of breath Objective Medications Current Medications Medications (Trade) Dose Ordered Sig/Bulmaro Route Start Time Stop Time Status Last Admin (Cardene Inj/NS 250 ml Inj) 260 ml @ 0 mls/hr TITRATE IV 08/08/16 19:45 08/10/16 16:46 (NS Flush) 2 ml BID IV FLUSH 08/09/16 09:00 08/11/16 20:07 (Tylenol) 650 mg Q6H PRN PO 08/08/16 21:30 08/11/16 08:31 (Zofran Inj) 4 mg Q6H PRN IV 08/08/16 21:30 08/12/16 05:24 (Dulcolax Ec) 10 mg DAILY PRN PO 08/08/16 21:30 (Senokot) 17.2 mg Q12H PRN PO 08/08/16 21:30 Miscellaneous Information 1 Q361D XX 08/08/16 21:30 (Chlorhexidine 2% Cloth) 3 pack Taper DAILY@04 TOP 08/09/16 04:00 08/05/17 03:59 08/12/16 04:00 (Chlorhexidine 2% Cloth) 3 pack UNSCH PRN TOP 08/08/16 21:30 (Trandate Inj) 20 mg Q2HR PRN IV PUSH 08/08/16 21:30 08/10/16 17:22 (NovoLOG SUPPLEMENTAL SCALE) 1 Q6HR SQ 08/09/16 00:00 (D50w (Vial) Inj) 25 ml UNSCH PRN IV 08/08/16 22:00 08/09/16 00:23 (Glucagon Inj) 1 mg UNSCH PRN IM/SQ 08/08/16 22:00 (Protonix) 40 mg DAILY PO 08/09/16 10:00 08/11/16 08:32 (Proscar) 5 mg DAILY PO 08/09/16 16:00 08/11/16 08:32 (Apresoline) 50 mg TID PO 08/09/16 18:00 08/12/16 12:26 (Coreg) 12.5 mg BID PO 08/09/16 16:00 08/11/16 20:07 (Cozaar) 100 mg HS PO 08/09/16 16:00 08/11/16 20:07 (Apresoline Inj) 10 mg Q30M PRN IV PUSH 08/09/16 16:00 08/12/16 13:21 (Dilaudid Pf Inj) 0.5 mg Q4H PRN IV PUSH 08/09/16 18:15 08/12/16 06:43 (Ativan) 0.5 mg Q6H PRN PO 08/09/16 23:00 08/11/16 20:07 (Renvela) 1,600 mg TIDAC PO 08/10/16 08:00 08/12/16 12:26 Vitamin B Complex/ Vit C/Folic Acid 1 cap 1 cap DAILY PO 08/10/16 09:00 08/11/16 08:31 (NS 1000 ml Inj) 1,000 ml @ 0 mls/hr Q0M PRN IV 08/09/16 22:56 08/12/16 09:16 Heparin Sodium (Porcine) 8000 units 8,000 units UNSCH PRN IVF 08/09/16 23:00 Sodium Chloride 1,000 ml @ 200 mls/hr Q5H PRN IV 08/09/16 22:56 (NS 1000 ml Inj) 1,000 ml @ 0 mls/hr Q0M PRN IV 08/09/16 22:56 (Mannitol Inj) 12.5 gm UNSCH PRN IV 08/09/16 23:00 (Albumin 25% Inj) 25 gm UNSCH PRN IV 08/09/16 23:00 (NS Flush) 5 ml UNSCH PRN IVF 08/09/16 23:00 08/10/16 18:38 (Heparin Inj) UNSCH PRN .XX 08/09/16 23:00 (Gentamicin (Dialysis) Inj) 20 mg UNSCH PRN IV 08/09/16 23:00 (Zofran Inj) 4 mg UNSCH PRN IV 08/09/16 23:00 (Tylenol) 650 mg UNSCH PRN PO 08/09/16 23:00 (Benadryl) 25 mg UNSCH PRN PO 08/09/16 23:00 (Nitrostat Sl) 0.4 mg UNSCH PRN SL 08/09/16 23:00 (Catapres) 0.1 mg UNSCH PRN PO 08/09/16 23:00 (Epogen Inj) 10,000 units UNSCH PRN IV 08/09/16 23:00 08/12/16 09:16 (Gelfoam 12 Mm/7 Mm Top) 1 foam UNSCH PRN TOP 08/09/16 23:00 08/12/16 09:16 (Procardia) 20 mg Q8HR PO 08/10/16 16:42 08/12/16 13:21 (Levaquin) 500 mg Q48H PO 08/12/16 14:00 08/12/16 13:21 (Flagyl) 500 mg Q8HR PO 08/11/16 14:00 08/12/16 13:21 (Remeron) 15 mg HS PO 08/11/16 21:00 08/11/16 20:07 Vital Signs / I&O Vital Signs Date Time Temp Pulse Resp B/P Pulse Ox O2 Delivery O2 Flow Rate FiO2 08/12/16 12:00 100 08/12/16 12:00 98.9 100 17 165/76 99 08/12/16 10:00 96 08/12/16 09:18 97 Nasal Cannula 3.00 08/12/16 08:00 99.1 87 21 165/77 99 08/12/16 08:00 87 08/12/16 06:00 90 08/12/16 04:00 89 28 162/78 98 08/12/16 04:00 89 08/12/16 02:00 92 08/12/16 00:00 99.3 97 21 164/74 99 08/12/16 00:00 97 08/11/16 22:00 90 08/11/16 20:34 97 Nasal Cannula 4.00 08/11/16 20:00 94 08/11/16 20:00 98.6 94 20 155/72 99 08/11/16 16:00 98.4 87 19 136/66 94 I/O 08/11/16 08/11/16 08/11/16 08/12/16 08/12/16 08/12/16 07:00 15:00 23:00 07:00 15:00 23:00 Intake Total 240 ml 310 ml 240 ml Output Total 100 ml 0 ml 50 ml 150 ml 3500 ml Balance 140 ml 310 ml -50 ml 90 ml -3500 ml Intake Oral 240 ml 240 ml 240 ml IV Total 70 ml Output Urine Total 100 ml 0 ml 50 ml 150 ml Hemodialysis 3500 ml Physical Exam GENERAL: NAD, Alert and awake SKIN: Warm and dry. HEAD: Atraumatic. Normocephalic. EYES: Pupils equal and round. No scleral icterus. No injection or drainage. ENT: No nasal bleeding or discharge. Mucous membranes pink and moist. NECK: Trachea midline. No JVD. CARDIOVASCULAR: Regular rate and rhythm. RESPIRATORY: No accessory muscle use. Clear to auscultation. Breath sounds equal bilaterally. GASTROINTESTINAL: Abdomen soft, non-tender, nondistended. Hepatic and splenic margins not palpable. MUSCULOSKELETAL: Extremities without clubbing, cyanosis, or edema. No obvious deformities. NEUROLOGICAL: Awake and alert. No obvious cranial nerve deficits. Motor grossly within normal limits. Five out of 5 muscle strength in the arms and legs. Normal speech. PSYCHIATRIC: Appropriate mood and affect; insight and judgment normal. Laboratory Laboratory Tests Test 08/11/16 08/12/16 16:45 02:56 Potassium Level 4.6 MEQ/L 4.8 MEQ/L Lipase 103 U/L White Blood Count 13.7 TH/MM3 Red Blood Count 3.07 MIL/MM3 Hemoglobin 8.6 GM/DL Hematocrit 26.4 % Mean Corpuscular Volume 86.0 FL Mean Corpuscular Hemoglobin 27.9 PG Mean Corpuscular Hemoglobin 32.4 % Concent Red Cell Distribution Width 20.2 % Platelet Count 384 TH/MM3 Mean Platelet Volume 7.2 FL Sodium Level 141 MEQ/L Chloride Level 101 MEQ/L Carbon Dioxide Level 27.9 MEQ/L Anion Gap 12 MEQ/L Blood Urea Nitrogen 56 MG/DL Creatinine 10.14 MG/DL Estimat Glomerular Filtration 7 ML/MIN Rate Random Glucose 147 MG/DL Calcium Level 9.5 MG/DL Assessment and Plan Problem List: (1) Altered mental status (2) Hypertensive emergency (3) Accelerated hypertension (4) CVA (cerebral vascular accident) (5) Elevated troponin Assessment and Plan 1) Continue with neurology work up 2) Mild elevation of troponin in ESRD patient, most likely due to hypertensive emergency, no further ischemic evaluation with current neurologic complications , medical management 3) Blood pressure better controlled, continue Procardia, will attempt to titrate up 4) Fluid overload state this am, HD per nephrology Problem Qualifiers (1) Altered mental status: Qualified Code: R41.0 - Disorientation (2) CVA (cerebral vascular accident): Qualified Code: I63.9 - Cerebrovascular accident (CVA), unspecified mechanism Marshall Bruner DO Aug 12, 2016 13:42
[2016-08-12 13:45] LABS: HEMOGLOBIN A1b 0.6 %; HEMOGLOBIN Ao 55.2 %; HEMOGLOBIN F 1.1 %; HEMOGLOBIN LA1C 1.9 %; HEMOGLOBIN P3 4.8 %
--- NOTE | 2016-08-12 14:13 | HHI.PR ---
Subjective Remarks The pt was resting comfortably. He said his headache was still there but tolerable. He says his abdominal pain was better. He had dialysis recently. He wanted to know why his blood pressure was always so high. Discussed with nursing. Objective Vitals Vital Signs Date Time Temp Pulse Resp B/P Pulse Ox O2 Delivery O2 Flow Rate FiO2 08/12/16 12:00 100 08/12/16 12:00 98.9 100 17 165/76 99 08/12/16 10:00 96 08/12/16 09:18 97 Nasal Cannula 3.00 08/12/16 08:00 99.1 87 21 165/77 99 08/12/16 08:00 87 08/12/16 06:00 90 08/12/16 04:00 89 28 162/78 98 08/12/16 04:00 89 08/12/16 02:00 92 08/12/16 00:00 99.3 97 21 164/74 99 08/12/16 00:00 97 08/11/16 22:00 90 08/11/16 20:34 97 Nasal Cannula 4.00 08/11/16 20:00 94 08/11/16 20:00 98.6 94 20 155/72 99 08/11/16 16:00 98.4 87 19 136/66 94 I/O 08/11/16 08/11/16 08/11/16 08/12/16 08/12/16 08/12/16 07:00 15:00 23:00 07:00 15:00 23:00 Intake Total 240 ml 310 ml 240 ml Output Total 100 ml 0 ml 50 ml 150 ml 3500 ml Balance 140 ml 310 ml -50 ml 90 ml -3500 ml Intake Oral 240 ml 240 ml 240 ml IV Total 70 ml Output Urine Total 100 ml 0 ml 50 ml 150 ml Hemodialysis 3500 ml Result Diagram: 08/12/16 0256 08/12/16 0256 Imaging Last Impressions Upper Extremity CT 08/11/16 0000 Signed Impressions: Service Date/Time: Thursday, August 11, 2016 08:54 - CONCLUSION: Induration around an AV fistula without a focal abscess seen. Casimiro Zapata MD Head/Brain Mag Res Venography 08/11/16 0000 Signed Impressions: Service Date/Time: Thursday, August 11, 2016 12:59 - CONCLUSION: Dural sinus asymmetry which is likely developmental. No definite evidence of dural venous sinus thrombosis. Kiran Campbell MD Head Magnetic Resonance Angiography 08/11/16 0000 Signed Impressions: Service Date/Time: Thursday, August 11, 2016 12:59 - CONCLUSION: Normal examination. No evidence of vasculopathy. Kiran Campbell MD Chest X-Ray 08/10/16 0925 Signed Impressions: Service Date/Time: Wednesday, August 10, 2016 08:47 - CONCLUSION: 1. Mild cardiomegaly and diffuse increased interstitial markings likely representing edema. Casimiro Zapata MD Upper Extremity Ultrasound 08/10/16 0000 Signed Impressions: Service Date/Time: Wednesday, August 10, 2016 09:54 - CONCLUSION: 1. AV fistula present. This is patent. There is some dilatation of the proximal aspect of the fistula. 2. Dilatation of the axillary vein with some very mild peripheral mural thrombus seen. Casimiro Zapata MD Lumbar Puncture Fluoroscopy 08/09/16 0000 Signed Impressions: Service Date/Time: Tuesday, August 09, 2016 12:45 - CONCLUSION: Uncomplicated fluoroscopically guided lumbar puncture. Opening pressure 26 cm H2O. Nemesio Badillo Jr., MD Abdomen/Pelvis CT 08/08/16 193 Signed Impressions: Service Date/Time: Monday, August 08, 2016 19:58 - CONCLUSION: 1. No obstruction or acute inflammatory changes are seen in the abdomen or pelvis. Normal appendix. 2. Complex cyst of the right kidney as described above. Further characterization with a contrast enhanced study is suggested when clinically feasible. 3. Small stones in a contracted gallbladder. No inflammatory changes. No ductal stone or ductal dilatation. 4. Areas of skin and subcutaneous induration, especially the right buttock and left inguinal regions. These are nonspecific. Also a potential pilonidal cyst. 5. Diffuse sclerosis of the visualized osseous structures typical of chronic renal disease. Possible small brown tumors of the right iliac bone. 6. There is a small fat containing hernia at the umbilicus. Casimiro Hair MD Head CT [id number]/08/[id number] Signed Impressions: Service Date/Time: Monday, August 08, 2016 19:00 - CONCLUSION: Normal examination for a patient of this age. No significant change has occurred. Vladimir Singer MD Chest CT 08/08/16 0000 Signed Impressions: Service Date/Time: Monday, August 08, 2016 19:58 - CONCLUSION: 1. Trace failure in the proper clinical setting. 2. Small pericardial effusion, nonspecific. 3. Coronary artery calcification. 4. Upper limits of normal axillary lymph nodes. 5. Bilateral gynecomastia. Casimiro Hair MD Brain MRI 08/08/16 0000 Signed Impressions: Service Date/Time: Monday, August 08, 2016 21:28 - CONCLUSION: 1. No acute infarct. Mild chronic white matter ischemic changes with slight progression since 2012. Vladimir Singer MD Objective Remarks GENERAL: Resting comfortably. SKIN: Warm and dry. HEAD: Atraumatic. Normocephalic. EYES: Pupils equal and round. No scleral icterus. No injection or drainage. ENT: No nasal bleeding or discharge. Mucous membranes pink and moist. NECK: Trachea midline. No JVD. CARDIOVASCULAR: Regular rate and rhythm. No murmur appreciated. RESPIRATORY: No accessory muscle use. Clear to auscultation. Breath sounds equal bilaterally. GASTROINTESTINAL: Abdomen soft, nondistended. no guarding. Minimal tenderness to palpation. MUSCULOSKELETAL: No obvious deformities. No clubbing. No cyanosis. No edema. left AVF with palpable thrill. NEUROLOGICAL: Awake and alert. Normal speech, very mild left facial droop, LUE 4 +/5, LLE 4+/5. all other extremities CRUZITO 5/5. sensation grossly intact. PSYCH: Slightly flattened affect. Procedures LP Medications and IVs Current Medications Medications (Trade) Dose Ordered Sig/Bulmaro Route Start Time Stop Time Status Last Admin (Cardene Inj/NS 250 ml Inj) 260 ml @ 0 mls/hr TITRATE IV 08/08/16 19:45 08/10/16 16:46 (NS Flush) 2 ml BID IV FLUSH 08/09/16 09:00 08/11/16 20:07 (Tylenol) 650 mg Q6H PRN PO 08/08/16 21:30 08/11/16 08:31 (Zofran Inj) 4 mg Q6H PRN IV 08/08/16 21:30 08/12/16 05:24 (Dulcolax Ec) 10 mg DAILY PRN PO 08/08/16 21:30 (Senokot) 17.2 mg Q12H PRN PO 08/08/16 21:30 Miscellaneous Information 1 Q361D XX 08/08/16 21:30 (Chlorhexidine 2% Cloth) 3 pack Taper DAILY@04 TOP 08/09/16 04:00 08/05/17 03:59 08/12/16 04:00 (Chlorhexidine 2% Cloth) 3 pack UNSCH PRN TOP 08/08/16 21:30 (Trandate Inj) 20 mg Q2HR PRN IV PUSH 08/08/16 21:30 08/10/16 17:22 (NovoLOG SUPPLEMENTAL SCALE) 1 Q6HR SQ 08/09/16 00:00 (D50w (Vial) Inj) 25 ml UNSCH PRN IV 08/08/16 22:00 08/09/16 00:23 (Glucagon Inj) 1 mg UNSCH PRN IM/SQ 08/08/16 22:00 (Protonix) 40 mg DAILY PO 08/09/16 10:00 08/11/16 08:32 (Proscar) 5 mg DAILY PO 08/09/16 16:00 08/11/16 08:32 (Apresoline) 50 mg TID PO 08/09/16 18:00 08/12/16 12:26 (Coreg) 12.5 mg BID PO 08/09/16 16:00 08/11/16 20:07 (Cozaar) 100 mg HS PO 08/09/16 16:00 08/11/16 20:07 (Apresoline Inj) 10 mg Q30M PRN IV PUSH 08/09/16 16:00 08/12/16 13:21 (Dilaudid Pf Inj) 0.5 mg Q4H PRN IV PUSH 08/09/16 18:15 08/12/16 06:43 (Ativan) 0.5 mg Q6H PRN PO 08/09/16 23:00 08/11/16 20:07 (Renvela) 1,600 mg TIDAC PO 08/10/16 08:00 08/12/16 12:26 Vitamin B Complex/ Vit C/Folic Acid 1 cap 1 cap DAILY PO 08/10/16 09:00 08/11/16 08:31 (NS 1000 ml Inj) 1,000 ml @ 0 mls/hr Q0M PRN IV 08/09/16 22:56 3/16/17 09:16 Heparin Sodium (Porcine) 8000 units 8,000 units UNSCH PRN IVF 08/09/16 23:00 Sodium Chloride 1,000 ml @ 200 mls/hr Q5H PRN IV 08/09/16 22:56 (NS 1000 ml Inj) 1,000 ml @ 0 mls/hr Q0M PRN IV 08/09/16 22:56 (Mannitol Inj) 12.5 gm UNSCH PRN IV 08/09/16 23:00 (Albumin 25% Inj) 25 gm UNSCH PRN IV 08/09/16 23:00 (NS Flush) 5 ml UNSCH PRN IVF 08/09/16 23:00 08/10/16 18:38 (Heparin Inj) UNSCH PRN .XX 08/09/16 23:00 (Gentamicin (Dialysis) Inj) 20 mg UNSCH PRN IV 08/09/16 23:00 (Zofran Inj) 4 mg UNSCH PRN IV 08/09/16 23:00 (Tylenol) 650 mg UNSCH PRN PO 08/09/16 23:00 (Benadryl) 25 mg UNSCH PRN PO 08/09/16 23:00 (Nitrostat Sl) 0.4 mg UNSCH PRN SL 08/09/16 23:00 (Catapres) 0.1 mg UNSCH PRN PO 08/09/16 23:00 (Epogen Inj) 10,000 units UNSCH PRN IV 08/09/16 23:00 08/12/16 09:16 (Gelfoam 12 Mm/7 Mm Top) 1 foam UNSCH PRN TOP 08/09/16 23:00 08/12/16 09:16 (Procardia) 20 mg Q8HR PO 08/10/16 16:42 08/12/16 13:21 (Levaquin) 500 mg Q48H PO 08/12/16 14:00 08/12/16 13:21 (Flagyl) 500 mg Q8HR PO 08/11/16 14:00 08/12/16 13:21 (Remeron) 15 mg HS PO 08/11/16 21:00 08/11/16 20:07 A/P Assessment and Plan Encephalopathy With left sided weakness. The pt was a stroke alert. Appreciate ID and neurology input. MRI with slight right-sided cortical enhancement. LP with slightly elevated protein. EEG with generalized slowing. Improving. Psych consult appreciated. - frequent neuro checks. - possibly hypertensive encephalopathy. Continue blood pressure control. - continue Remeron per psych. - Ativan for anxiety. - antibiotics per ID. On vanco, Levaquin and Flagyl. - PT/ OT. Respiratory failure Likely s/t pulmonary edema. - volume management with dialysis. - oxygen and nebs as needed. Hypertensive emergency With elevated troponin. Appreciate cardiology consult. Off of nicardipine drip. - continue losartan, carvedilol, hydralazine and Procardia. - ASA. - hydralazine and labetalol prn. Abdominal pain Located in the right upper quadrant. Recent CT abdomen w/o contrast showed complex right renal cyst among other findings. LFTs unremarkable. Pain improved. - pain control as needed. - consider GI consult. Hyperkalemia K 6 08/11. Improved. - Kayexalate per nephrology. - follow BMP. End-stage renal disease On hemodialysis - dialysis per nephrology. Diabetes mellitus A1c 6.2%. Glucose well controlled 08/12. - SSI for glycemic control. Prophylaxis: PPI/SCDs/subcutaneous heparin. Discharge Planning Transfer to floor if blood pressure remains controlled. Benja Lux DO Aug 12, 2016 14:13
[2016-08-12 15:04] LABS: CSF CRYPTOCOCCUS AG CONF ND (NOT DETECTD)
[2016-08-12] MEDS: LABETALOL HCL 100 MG/20 ML VIAL IV PUSH PRN (15:10)
[2016-08-12 17:52] LABS: CALIFORNIA ENCEPH AB IGG <1:4 (()); CALIFORNIA ENCEPH AB IGM <1:4 (()); EAST EQUINE ENCEPH AB IGG <1:4 (()); EAST EQUINE ENCEPH AB IGM <1:4 (()); ST LOUIS ENCEPH AB IGG <1:4 (()); ST LOUIS ENCEPH AB IGM <1:4 (())
[2016-08-12] MEDS: LOSARTAN 50 MG TAB PO SCH (20:21)
[2016-08-12] MEDS: MIRTAZAPINE 15 MG TAB PO SCH (20:21)
--- NOTE | 2016-08-12 21:44 | HHI.NPPN ---
Subjective History of Present Illness 45-year-old male with past medical history of hypertension, cerebrovascular accident, history of chronic anemia who came to the hospital with altered mental status and confusion. I have seen the patient before in the past. He has now been following with Dr. Richardson and getting hemodialysis at [facility] in [facility] on Tuesday, and Tuesday. Additional Remarks Patient seen during HD, alert, and now fully oriented, not in distress. Review of Systems General Constitutional: Fatigue Respiratory Lungs: SOB, Cough Cardiovascular Cardiac: PAZ Objective Data Data 08/11/16 08/12/16 19:00 07:00 Intake Total 310 ml 240 ml Output Total 0 ml 200 ml Balance 310 ml 40 ml Intake Oral 240 ml 240 ml IV Total 70 ml Output Urine Total 0 ml 200 ml Vital Signs Date Time Temp Pulse Resp B/P Pulse Ox O2 Delivery O2 Flow Rate FiO2 08/12/16 20:05 99 Nasal Cannula 3.00 08/12/16 18:00 89 08/12/16 16:00 88 08/12/16 16:00 98.7 87 20 138/64 90 08/12/16 14:00 153 08/12/16 12:00 100 08/12/16 12:00 98.9 100 17 165/76 99 08/12/16 10:00 96 08/12/16 09:18 97 Nasal Cannula 3.00 08/12/16 08:00 99.1 87 21 165/77 99 08/12/16 08:00 87 08/12/16 06:00 90 08/12/16 04:00 89 28 162/78 98 08/12/16 04:00 89 08/12/16 02:00 92 08/12/16 00:00 99.3 97 21 164/74 99 08/12/16 00:00 97 08/11/16 22:00 90 -: 08/12/16 0256 08/12/16 0256 Physical Exam General Appearance: Well Nourished, Anxious Throat Throat Exam: Oral Mucosa Emet & Moist Neck Neck Exam: Neck Supple Pulmonary Resp Exam: Crackles, Rhonchi, Decreased Bases, Diminished Breath Sounds Cardiology CV Exam: Regular, Normal Sinus Rhythm Gastrointestinal/Abdomen GI Exam: Soft, Non-Tender, Bowel Sounds Present Extremeties Extremities Exam: Trace Edema Neurologic Neuro Exam: Alert, Awake Psychiatric Psych Exam: Appropriate Responses Assessment/Plan Assessment Summary: Fluid/Volume Overload, Hypertension, End Stage Renal Disease Problem List: (1) Hypertension, accelerated (2) Hyperkalemia (3) Diabetes (4) SOB (shortness of breath) (5) Altered mental status (6) ESRD (end stage renal disease) on dialysis Plan Patient has K repeat last night was normal. HD now and remove fluid as tolerated. BP is better, off Nicardipine. Continue HD TTS. Follow BMP and BP. Problem Qualifiers (1) Diabetes: (2) Altered mental status: Qualified Code: R41.0 - Disorientation Teresita Carroll MD Aug 12, 2016 21:44 Teresita Carroll MD Aug 12, 2016 21:44
[2016-08-12] MEDS: LORazepam 0.5 MG TAB PO PRN (23:35)
[2016-08-13] VITALS (14 sets, daily range): BP systolic 113–172; BP diastolic 59–82; PULSE 77–101; RESP 15–25; TEMP 98.2–100.1; O2SAT 94–100
[2016-08-13] MEDS: ONDANSETRON HCL 4 MG/2 ML VIAL IV PRN ×3 (01:43→08:39)
[2016-08-13] MEDS: HYDROmorphone HCL PF 1 MG/ML VIAL IV PUSH PRN ×5 (01:44→20:03)
[2016-08-13] MEDS: LABETALOL HCL 100 MG/20 ML VIAL IV PUSH PRN ×2 (02:36→21:33)
[2016-08-13 04:39] LABS: HEMATOCRIT 26.5 % (39.0-51.0); MEAN CELL VOLUME 87.3 FL (80.0-100.0); MEAN CORPUSCULAR HEMOGLOBIN 27.8 PG (27.0-34.0); MEAN CORPUSCULAR HGB CONC 31.8 % (32.0-36.0); PLATELET COUNT 399 TH/MM3 (150-450); RED BLOOD COUNT 3.04 MIL/MM3 (4.50-5.90); RED CELL DISTRIBUTION WIDTH 20.2 % (11.6-17.2); REVIEW FLAG FINAL; WHITE BLOOD COUNT 13.4 TH/MM3 (4.0-11.0)
[2016-08-13 05:07] LABS: BICARBONATE 32.7 MEQ/L (21.0-32.0); POTASSIUM 4.1 MEQ/L (3.5-5.1)
[2016-08-13] MEDS: NIFEdipine 20 MG CAP PO SCH ×3 (05:10→21:08)
[2016-08-13] MEDS: metroNIDAZOLE 500 MG TAB PO SCH ×3 (05:10→21:08)
[2016-08-13] MEDS: CHLORHEXIDINE GLUCONATE 2 % 1 PACK (2 CLOTHS) TOP SCH (05:10)
[2016-08-13] MEDS: INSULIN ASPART SUPPLEMENTAL SCALE SQ SCH ×3 (06:00→17:23)
[2016-08-13] MEDS: CARVEDILOL 12.5 MG TAB PO SCH ×2 (08:36→21:08)
[2016-08-13] MEDS: SEVELAMER CARBONATE 800 MG TAB PO SCH ×3 (08:36→17:23)
[2016-08-13] MEDS: hydrALAZINE HCL 50 MG TAB PO SCH ×3 (08:37→17:22)
[2016-08-13] MEDS: FINASTERIDE 5 MG TAB PO SCH (08:37)
[2016-08-13] MEDS: VITAMIN B CMPLX/VITC/FOLIC AC CAP PO SCH (08:37)
[2016-08-13] MEDS: PANTOPRAZOLE SOD 40 MG DELAYED RELEASE TAB PO SCH (08:37)
[2016-08-13] MEDS: SODIUM CHLORIDE 0.9% FLUSH 5 ML FLUSH IV FLUSH SCH ×2 (08:39→21:08)
--- NOTE | 2016-08-13 08:56 | PD.CARD.PN ---
Subjective Subjective Remarks No chest pain, no shortness of breath Nauseated this morning Nurse notes a few episodes of apnea overnight with a drop in his pulse ox Objective Medications Current Medications Medications (Trade) Dose Ordered Sig/Bulmaro Route Start Time Stop Time Status Last Admin (Cardene Inj/NS 250 ml Inj) 260 ml @ 0 mls/hr TITRATE IV 08/08/16 19:45 08/10/16 16:46 (NS Flush) 2 ml BID IV FLUSH 08/09/16 09:00 08/13/16 08:39 (Tylenol) 650 mg Q6H PRN PO 08/08/16 21:30 08/11/16 08:31 (Zofran Inj) 4 mg Q6H PRN IV 08/08/16 21:30 08/13/16 08:39 (Dulcolax Ec) 10 mg DAILY PRN PO 08/08/16 21:30 (Senokot) 17.2 mg Q12H PRN PO 08/08/16 21:30 Miscellaneous Information 1 Q361D XX 08/08/16 21:30 (Chlorhexidine 2% Cloth) 3 pack Taper DAILY@04 TOP 08/09/16 04:00 08/05/17 03:59 08/13/16 05:10 (Chlorhexidine 2% Cloth) 3 pack UNSCH PRN TOP 08/08/16 21:30 (Trandate Inj) 20 mg Q2HR PRN IV PUSH 08/08/16 21:30 08/13/16 02:36 (NovoLOG SUPPLEMENTAL SCALE) 1 Q6HR SQ 08/09/16 00:00 (D50w (Vial) Inj) 25 ml UNSCH PRN IV 08/08/16 22:00 08/09/16 00:23 (Glucagon Inj) 1 mg UNSCH PRN IM/SQ 08/08/16 22:00 (Protonix) 40 mg DAILY PO 08/09/16 10:00 08/13/16 08:37 (Proscar) 5 mg DAILY PO 08/09/16 16:00 08/13/16 08:37 (Apresoline) 50 mg TID PO 08/09/16 18:00 08/13/16 08:37 (Coreg) 12.5 mg BID PO 08/09/16 16:00 08/13/16 08:36 (Cozaar) 100 mg HS PO 08/09/16 16:00 08/12/16 20:21 (Apresoline Inj) 10 mg Q30M PRN IV PUSH 08/09/16 16:00 08/12/16 13:21 (Dilaudid Pf Inj) 0.5 mg Q4H PRN IV PUSH 08/09/16 18:15 08/13/16 08:40 (Ativan) 0.5 mg Q6H PRN PO 08/09/16 23:00 08/12/16 23:35 (Renvela) 1,600 mg TIDAC PO 08/10/16 08:00 08/13/16 08:36 Vitamin B Complex/ Vit C/Folic Acid 1 cap 1 cap DAILY PO 08/10/16 09:00 08/13/16 08:37 (NS 1000 ml Inj) 1,000 ml @ 0 mls/hr Q0M PRN IV 08/09/16 22:56 08/12/16 09:16 Heparin Sodium (Porcine) 8000 units 8,000 units UNSCH PRN IVF 08/09/16 23:00 Sodium Chloride 1,000 ml @ 200 mls/hr Q5H PRN IV 08/09/16 22:56 (NS 1000 ml Inj) 1,000 ml @ 0 mls/hr Q0M PRN IV 08/09/16 22:56 (Mannitol Inj) 12.5 gm UNSCH PRN IV 08/09/16 23:00 (Albumin 25% Inj) 25 gm UNSCH PRN IV 08/09/16 23:00 (NS Flush) 5 ml UNSCH PRN IVF 08/09/16 23:00 08/10/16 18:38 (Heparin Inj) UNSCH PRN .XX 08/09/16 23:00 (Gentamicin (Dialysis) Inj) 20 mg UNSCH PRN IV 08/09/16 23:00 (Zofran Inj) 4 mg UNSCH PRN IV 08/09/16 23:00 (Tylenol) 650 mg UNSCH PRN PO 08/09/16 23:00 08/13/16 05:11 (Benadryl) 25 mg UNSCH PRN PO 08/09/16 23:00 (Nitrostat Sl) 0.4 mg UNSCH PRN SL 08/09/16 23:00 (Catapres) 0.1 mg UNSCH PRN PO 08/09/16 23:00 (Epogen Inj) 10,000 units UNSCH PRN IV 08/09/16 23:00 08/12/16 09:16 (Gelfoam 12 Mm/7 Mm Top) 1 foam UNSCH PRN TOP 08/09/16 23:00 08/12/16 09:16 (Procardia) 20 mg Q8HR PO 08/10/16 16:42 08/13/16 05:10 (Levaquin) 500 mg Q48H PO 08/12/16 14:00 08/12/16 13:21 (Flagyl) 500 mg Q8HR PO 08/11/16 14:00 08/13/16 05:10 (Remeron) 15 mg HS PO 08/11/16 21:00 08/12/16 20:21 Vital Signs / I&O Vital Signs Date Time Temp Pulse Resp B/P Pulse Ox O2 Delivery O2 Flow Rate FiO2 08/13/16 06:50 15 08/13/16 06:11 17 08/13/16 06:00 87 08/13/16 04:00 86 08/13/16 04:00 99.3 86 17 158/71 100 08/13/16 02:00 90 08/13/16 00:00 93 08/13/16 00:00 100.1 93 18 153/69 99 08/12/16 22:00 94 08/12/16 20:05 99 Nasal Cannula 3.00 08/12/16 20:00 93 08/12/16 20:00 99.0 93 17 152/66 100 08/12/16 18:00 89 08/12/16 16:00 88 08/12/16 16:00 98.7 87 20 138/64 90 08/12/16 14:00 153 08/12/16 12:00 100 08/12/16 12:00 98.9 100 17 165/76 99 08/12/16 10:00 96 08/12/16 09:18 97 Nasal Cannula 3.00 I/O 08/12/16 08/12/16 08/12/16 08/13/16 08/13/16 08/13/16 07:00 15:00 23:00 07:00 15:00 23:00 Intake Total 240 ml 250 ml 589 ml 535 ml Output Total 150 ml 3550 ml 300 ml 100 ml Balance 90 ml -3300 ml 289 ml 435 ml Intake Oral 240 ml 180 ml 480 ml 480 ml IV Total 70 ml 109 ml 55 ml Output Urine Total 150 ml 50 ml 300 ml 100 ml Hemodialysis 3500 ml # Bowel Movements 0 Physical Exam GENERAL: NAD, Alert and awake SKIN: Warm and dry. HEAD: Atraumatic. Normocephalic. EYES: Pupils equal and round. No scleral icterus. No injection or drainage. ENT: No nasal bleeding or discharge. Mucous membranes pink and moist. NECK: Trachea midline. No JVD. CARDIOVASCULAR: Regular rate and rhythm. RESPIRATORY: No accessory muscle use. Clear to auscultation. Breath sounds equal bilaterally. GASTROINTESTINAL: Abdomen soft, non-tender, nondistended. Hepatic and splenic margins not palpable. MUSCULOSKELETAL: Extremities without clubbing, cyanosis, or edema. No obvious deformities. NEUROLOGICAL: Awake and alert. No obvious cranial nerve deficits. Motor grossly within normal limits. Five out of 5 muscle strength in the arms and legs. Normal speech. PSYCHIATRIC: Appropriate mood and affect; insight and judgment normal. Laboratory Laboratory Tests Test 08/13/16 02:40 White Blood Count 13.4 TH/MM3 Red Blood Count 3.04 MIL/MM3 Hemoglobin 8.4 GM/DL Hematocrit 26.5 % Mean Corpuscular Volume 87.3 FL Mean Corpuscular Hemoglobin 27.8 PG Mean Corpuscular Hemoglobin 31.8 % Concent Red Cell Distribution Width 20.2 % Platelet Count 399 TH/MM3 Mean Platelet Volume 7.1 FL Sodium Level 140 MEQ/L Potassium Level 4.1 MEQ/L Chloride Level 97 MEQ/L Carbon Dioxide Level 32.7 MEQ/L Anion Gap 10 MEQ/L Blood Urea Nitrogen 42 MG/DL Creatinine 8.82 MG/DL Estimat Glomerular Filtration 8 ML/MIN Rate Random Glucose 103 MG/DL Calcium Level 9.2 MG/DL Assessment and Plan Problem List: (1) Altered mental status (2) Hypertensive emergency (3) Accelerated hypertension (4) CVA (cerebral vascular accident) (5) Elevated troponin Assessment and Plan 1) Mild elevation of troponin in ESRD patient, most likely due to hypertensive emergency, no further ischemic evaluation with current neurologic complications , medical management 2) Blood pressure better controlled, requiring a few PRNs, continue with current medications... if needed, would increase Coreg 3) Probable sleep apnea, should be treated as this can lead to resistant hypertension, outpt sleep study on discharge 4) Will see PRN, call with questions Problem Qualifiers (1) Altered mental status: Qualified Code: R41.0 - Disorientation (2) CVA (cerebral vascular accident): Qualified Code: I63.9 - Cerebrovascular accident (CVA), unspecified mechanism Marshall Bruner DO Aug 13, 2016 08:56
--- NOTE | 2016-08-13 10:38 | HHI.IDPN ---
Subjective Subjective Remarks ID COVERAGE is a 45 y.o AAM with PMHx of ESRD on HD Tues, Thurs, Sat, Hidradenitis suppurativa who has recd IV antibiotics in past, PORT in place for IV access issues, prior h/o TIA, prior h/o seizures. Notes reviewed Temps ok, low grade last 24 hours On Rx for Left AV fistula cellulitis as well as left axillary cellulitis secondary to Hidradenitis suppurativa. LP with only 5 WBC, but elevated protein HSV negative, crypto negative CSF VDRL and JV pending RPR negative Had some vomiting last night, none today Has some frontal CASTANEDA No photophobia MRA/MRV negative HIV negative. Hepatitis profile negative. CT LUE - some induration around AVF, no abscess Antibiotics Vanco IV Levaquin oral Flagyl oral Lines Line sites no e/o infection Past Medical History reviewed Allergies: Coded Allergies: Contrast Media (Unverified Allergy, Severe, nausea/vomiting, 08/08/16) causes n/v HAD TEST TODAY 11/15/11 TOOK BENADRYL AND DID OK. Reglan (Verified Allergy, Severe, ANXIETY, 08/08/16) Seafood (Verified Allergy, Severe, SWELLING-CANT BREATH-HIVES, 08/08/16) Objective . Vital Signs Date Time Temp Pulse Resp B/P Pulse Ox O2 Delivery O2 Flow Rate FiO2 08/13/16 10:29 97 Nasal Cannula 3.00 08/13/16 08:00 99.1 82 25 141/65 99 08/13/16 06:50 15 08/13/16 06:11 17 08/13/16 06:00 87 08/13/16 04:00 86 08/13/16 04:00 99.3 86 17 158/71 100 08/13/16 02:00 90 08/13/16 00:00 93 08/13/16 00:00 100.1 93 18 153/69 99 08/12/16 22:00 94 08/12/16 20:05 99 Nasal Cannula 3.00 08/12/16 20:00 93 08/12/16 20:00 99.0 93 17 152/66 100 08/12/16 18:00 89 08/12/16 16:00 88 08/12/16 16:00 98.7 87 20 138/64 90 08/12/16 14:00 153 08/12/16 12:00 100 08/12/16 12:00 98.9 100 17 165/76 99 08/12/16 08/12/16 08/13/16 15:00 23:00 07:00 Intake Total 250 ml 589 ml 535 ml Output Total 3550 ml 300 ml 100 ml Balance -3300 ml 289 ml 435 ml Intake Oral 180 ml 480 ml 480 ml IV Total 70 ml 109 ml 55 ml Output Urine Total 50 ml 300 ml 100 ml Hemodialysis 3500 ml # Bowel Movements 0 . Laboratory Tests Test 08/11/16 08/12/16 08/13/16 10:49 02:56 02:40 White Blood Count 11.4 TH/MM3 13.7 TH/MM3 13.4 TH/MM3 Red Blood Count 3.18 MIL/MM3 3.07 MIL/MM3 3.04 MIL/MM3 Hemoglobin 8.8 GM/DL 8.6 GM/DL 8.4 GM/DL Hematocrit 27.3 % 26.4 % 26.5 % Mean Corpuscular Volume 85.6 FL 86.0 FL 87.3 FL Mean Corpuscular Hemoglobin 27.7 PG 27.9 PG 27.8 PG Mean Corpuscular Hemoglobin 32.4 % 32.4 % 31.8 % Concent Red Cell Distribution Width 20.0 % 20.2 % 20.2 % Platelet Count 394 TH/MM3 384 TH/MM3 399 TH/MM3 Mean Platelet Volume 7.0 FL 7.2 FL 7.1 FL Laboratory Tests Test 08/11/16 08/11/16 08/12/16 08/13/16 10:49 16:45 02:56 02:40 Hemoglobin A1c 6.2 % Potassium Level 4.6 MEQ/L 4.8 MEQ/L 4.1 MEQ/L Lipase 103 U/L Sodium Level 141 MEQ/L 140 MEQ/L Chloride Level 101 MEQ/L 97 MEQ/L Carbon Dioxide Level 27.9 MEQ/L 32.7 MEQ/L Anion Gap 12 MEQ/L 10 MEQ/L Blood Urea Nitrogen 56 MG/DL 42 MG/DL Creatinine 10.14 MG/DL 8.82 MG/DL Estimat Glomerular Filtration 7 ML/MIN 8 ML/MIN Rate Random Glucose 147 MG/DL 103 MG/DL Calcium Level 9.5 MG/DL 9.2 MG/DL Microbiology Date/Time Procedure Status Source Growth 08/10/16 13:33 Aerobic Blood Culture - Preliminary Resulted Blood Other NO GROWTH IN 2 DAYS 08/10/16 13:33 Anaerobic Blood Culture - Preliminary Resulted Blood Other NO GROWTH IN 2 DAYS Imaging Last Impressions Upper Extremity CT 08/11/16 0000 Signed Impressions: Service Date/Time: Thursday, August 11, 2016 08:54 - CONCLUSION: Induration around an AV fistula without a focal abscess seen. Casimiro Zapata MD Chest X-Ray 08/10/16 0925 Signed Impressions: Service Date/Time: Wednesday, August 10, 2016 08:47 - CONCLUSION: 1. Mild cardiomegaly and diffuse increased interstitial markings likely representing edema. Casimiro Zapata MD Upper Extremity Ultrasound 08/10/16 0000 Signed Impressions: Service Date/Time: Wednesday, August 10, 2016 09:54 - CONCLUSION: 1. AV fistula present. This is patent. There is some dilatation of the proximal aspect of the fistula. 2. Dilatation of the axillary vein with some very mild peripheral mural thrombus seen. Casimiro Zapata MD Lumbar Puncture Fluoroscopy 08/09/16 0000 Signed Impressions: Service Date/Time: Tuesday, August 09, 2016 12:45 - CONCLUSION: Uncomplicated fluoroscopically guided lumbar puncture. Opening pressure 26 cm H2O. Nemesio Badillo Jr., MD Abdomen/Pelvis CT 08/08/16 193 Signed Impressions: Service Date/Time: Monday, August 08, 2016 19:58 - CONCLUSION: 1. No obstruction or acute inflammatory changes are seen in the abdomen or pelvis. Normal appendix. 2. Complex cyst of the right kidney as described above. Further characterization with a contrast enhanced study is suggested when clinically feasible. 3. Small stones in a contracted gallbladder. No inflammatory changes. No ductal stone or ductal dilatation. 4. Areas of skin and subcutaneous induration, especially the right buttock and left inguinal regions. These are nonspecific. Also a potential pilonidal cyst. 5. Diffuse sclerosis of the visualized osseous structures typical of chronic renal disease. Possible small brown tumors of the right iliac bone. 6. There is a small fat containing hernia at the umbilicus. Casimiro Hair MD Head CT 08/08/16 7070 Signed Impressions: Service Date/Time: Monday, August 08, 2016 19:00 - CONCLUSION: Normal examination for a patient of this age. No significant change has occurred. Vladimir Singer MD Chest CT 08/08/16 0000 Signed Impressions: Service Date/Time: Monday, August 08, 2016 19:58 - CONCLUSION: 1. Trace failure in the proper clinical setting. 2. Small pericardial effusion, nonspecific. 3. Coronary artery calcification. 4. Upper limits of normal axillary lymph nodes. 5. Bilateral gynecomastia. Casimiro Hair MD Brain MRI 08/08/16 0000 Signed Impressions: Service Date/Time: Monday, August 08, 2016 21:28 - CONCLUSION: 1. No acute infarct. Mild chronic white matter ischemic changes with slight progression since 2012. Vladimir Singer MD Physical Exam GENERAL: Awake and alert, NAD. SKIN: No rashes, ecchymoses or lesions. Cool and dry. HEAD: Atraumatic. Normocephalic. No temporal or scalp tenderness. EYES: [place] conjunctiva. Pupils equal round and reactive. Extraocular motions intact. No scleral icterus. No injection or drainage. ENT: Nose without bleeding, purulent drainage or septal hematoma. Moist mucosa NECK: Trachea midline. Supple, nontender, no meningeal signs. CARDIOVASCULAR: HS audible. No murmur appreciated. RESPIRATORY: Clear to auscultation. Breath sounds equal bilaterally. GASTROINTESTINAL: Abdomen soft, non-tender, nondistended. MUSCULOSKELETAL: Extremities without clubbing, cyanosis, or edema. LUE AV fistula site , better, no redness or induration. Not tender. Bruit and thrill +. Left axillary fold better, with min erythema, no tenderness, and mini discharge. Rt armpit with scarring noted and adhesions but no e.o acute infection. NEUROLOGICAL: Awake and alert. Psych: cooperative. IV line sites with no e/o infection. PORT site with no e.o infection. Assessment & Plan Remarks Acute metabolic encephalopathy on admission Abnormal LP: given behavior issues would like to r/o neurosyphilis, CSF LEEANNE virus for PML and HIV screen Hidradenitis suppurativa with left axillary cellulitis/abscess. - better Left axillary and AV fistula site cellulitis. - better Complex cyst on kidney in CT non contrast. s/p port placement for IV access ESRD on HD Tues, Thurs, Sat per . ? missed HD session Mild to moderate mitral stenosis on ECHO. Recs: Continue Vanco IV in HD. Continue Levaquin oral Continue flagyl oral. Follow cultures Follow CSF LEEANNE virus, CSF VDRL Follow temps Monitor progress Tracy Small MD Aug 13, 2016 10:38
--- NOTE | 2016-08-13 11:12 | HHI.NPPN ---
Subjective History of Present Illness 45-year-old male with past medical history of hypertension, cerebrovascular accident, history of chronic anemia who came to the hospital with altered mental status and confusion. I have seen the patient before in the past. He has now been following with Dr. Richardson and getting hemodialysis at [facility] in [facility] on Tuesday, and Tuesday. Additional Remarks Patient is alert, feeling better, no SOB. Review of Systems General Constitutional: Fatigue Respiratory Lungs: SOB, Cough Cardiovascular Cardiac: PAZ Objective Data Data 08/12/16 08/13/16 19:00 07:00 Intake Total 250 ml 1124 ml Output Total 3550 ml 400 ml Balance -3300 ml 724 ml Intake Oral 180 ml 960 ml IV Total 70 ml 164 ml Output Urine Total 50 ml 400 ml Hemodialysis 3500 ml # Bowel Movements 0 Vital Signs Date Time Temp Pulse Resp B/P Pulse Ox O2 Delivery O2 Flow Rate FiO2 08/13/16 10:29 97 Nasal Cannula 3.00 08/13/16 08:00 99.1 82 25 141/65 99 08/13/16 06:50 15 08/13/16 06:11 17 08/13/16 06:00 87 08/13/16 04:00 86 08/13/16 04:00 99.3 86 17 158/71 100 08/13/16 02:00 90 08/13/16 00:00 93 08/13/16 00:00 100.1 93 18 153/69 99 08/12/16 22:00 94 08/12/16 20:05 99 Nasal Cannula 3.00 08/12/16 20:00 93 08/12/16 20:00 99.0 93 17 152/66 100 08/12/16 18:00 89 08/12/16 16:00 88 08/12/16 16:00 98.7 87 20 138/64 90 08/12/16 14:00 153 08/12/16 12:00 100 08/12/16 12:00 98.9 100 17 165/76 99 -: 08/13/16 0240 08/13/16 0240 Physical Exam General Appearance: Well Nourished, Anxious Throat Throat Exam: Oral Mucosa Spangle & Moist Neck Neck Exam: Neck Supple Pulmonary Resp Exam: Crackles, Rhonchi, Decreased Bases, Diminished Breath Sounds Cardiology CV Exam: Regular, Normal Sinus Rhythm Gastrointestinal/Abdomen GI Exam: Soft, Non-Tender, Bowel Sounds Present Extremeties Extremities Exam: Trace Edema Neurologic Neuro Exam: Alert, Awake Psychiatric Psych Exam: Appropriate Responses Assessment/Plan Assessment Summary: Fluid/Volume Overload, Hypertension, End Stage Renal Disease Problem List: (1) Hypertension, accelerated (2) Hyperkalemia (3) Diabetes (4) SOB (shortness of breath) (5) Altered mental status (6) ESRD (end stage renal disease) on dialysis Plan Patient has HD done yesterday and 3.5 liters removed. BP is better , off Nicardipine. He has apnea attacks during night. Hgb. is stable. Continue HD TTS for now. Problem Qualifiers (1) Diabetes: (2) Altered mental status: Qualified Code: R41.0 - Disorientation Teresita Carroll MD Aug 13, 2016 11:12
--- NOTE | 2016-08-13 13:13 | HHI.PR ---
Subjective Remarks The patient had nausea and vomiting. He continues to have abdominal pain. He also complained of a headache. Discussed with nursing. Has had apneic episodes overnight. Objective Vitals Vital Signs Date Time Temp Pulse Resp B/P Pulse Ox O2 Delivery O2 Flow Rate FiO2 08/13/16 12:00 99.0 77 15 113/59 94 08/13/16 12:00 77 08/13/16 10:29 97 Nasal Cannula 3.00 08/13/16 10:00 82 08/13/16 08:00 99.1 82 25 141/65 99 08/13/16 08:00 82 08/13/16 06:50 15 08/13/16 06:11 17 08/13/16 06:00 87 08/13/16 04:00 86 08/13/16 04:00 99.3 86 17 158/71 100 08/13/16 02:00 90 08/13/16 00:00 93 08/13/16 00:00 100.1 93 18 153/69 99 08/12/16 22:00 94 08/12/16 20:05 99 Nasal Cannula 3.00 08/12/16 20:00 93 08/12/16 20:00 99.0 93 17 152/66 100 08/12/16 18:00 89 08/12/16 16:00 88 08/12/16 16:00 98.7 87 20 138/64 90 08/12/16 14:00 153 I/O 08/12/16 08/12/16 08/12/16 08/13/16 08/13/16 08/13/16 07:00 15:00 23:00 07:00 15:00 23:00 Intake Total 240 ml 250 ml 589 ml 535 ml Output Total 150 ml 3550 ml 300 ml 100 ml Balance 90 ml -3300 ml 289 ml 435 ml Intake Oral 240 ml 180 ml 480 ml 480 ml IV Total 70 ml 109 ml 55 ml Output Urine Total 150 ml 50 ml 300 ml 100 ml Hemodialysis 3500 ml # Bowel Movements 0 Result Diagram: 08/13/16 0240 08/13/16 0240 Imaging Last Impressions Upper Extremity CT 08/11/16 0000 Signed Impressions: Service Date/Time: Thursday, August 11, 2016 08:54 - CONCLUSION: Induration around an AV fistula without a focal abscess seen. Casimiro Zapata MD Head/Brain Mag Res Venography 08/11/16 0000 Signed Impressions: Service Date/Time: Thursday, August 11, 2016 12:59 - CONCLUSION: Dural sinus asymmetry which is likely developmental. No definite evidence of dural venous sinus thrombosis. Kiran Campbell MD Head Magnetic Resonance Angiography 08/11/16 0000 Signed Impressions: Service Date/Time: Thursday, August 11, 2016 12:59 - CONCLUSION: Normal examination. No evidence of vasculopathy. Kiran Campbell MD Chest X-Ray 08/10/16 0925 Signed Impressions: Service Date/Time: Wednesday, August 10, 2016 08:47 - CONCLUSION: 1. Mild cardiomegaly and diffuse increased interstitial markings likely representing edema. Casimiro Zapata MD Upper Extremity Ultrasound 08/10/16 0000 Signed Impressions: Service Date/Time: Wednesday, August 10, 2016 09:54 - CONCLUSION: 1. AV fistula present. This is patent. There is some dilatation of the proximal aspect of the fistula. 2. Dilatation of the axillary vein with some very mild peripheral mural thrombus seen. Casimiro Zapata MD Lumbar Puncture Fluoroscopy 08/09/16 0000 Signed Impressions: Service Date/Time: Tuesday, August 09, 2016 12:45 - CONCLUSION: Uncomplicated fluoroscopically guided lumbar puncture. Opening pressure 26 cm H2O. Nemesio Badillo Jr., MD Abdomen/Pelvis CT 08/08/161932 Signed Impressions: Service Date/Time: Monday, August 08, 2016 19:58 - CONCLUSION: 1. No obstruction or acute inflammatory changes are seen in the abdomen or pelvis. Normal appendix. 2. Complex cyst of the right kidney as described above. Further characterization with a contrast enhanced study is suggested when clinically feasible. 3. Small stones in a contracted gallbladder. No inflammatory changes. No ductal stone or ductal dilatation. 4. Areas of skin and subcutaneous induration, especially the right buttock and left inguinal regions. These are nonspecific. Also a potential pilonidal cyst. 5. Diffuse sclerosis of the visualized osseous structures typical of chronic renal disease. Possible small brown tumors of the right iliac bone. 6. There is a small fat containing hernia at the umbilicus. Casimiro Hair MD Head CT 08/08/16 232 Signed Impressions: Service Date/Time: Monday, August 08, 2016 19:00 - CONCLUSION: Normal examination for a patient of this age. No significant change has occurred. Vladimir Singer MD Chest CT 08/08/16 0000 Signed Impressions: Service Date/Time: Monday, August 08, 2016 19:58 - CONCLUSION: 1. Trace failure in the proper clinical setting. 2. Small pericardial effusion, nonspecific. 3. Coronary artery calcification. 4. Upper limits of normal axillary lymph nodes. 5. Bilateral gynecomastia. Casimiro Hair MD Brain MRI 08/08/16 0000 Signed Impressions: Service Date/Time: Monday, August 08, 2016 21:28 - CONCLUSION: 1. No acute infarct. Mild chronic white matter ischemic changes with slight progression since 2012. Vladimir Singer MD Objective Remarks GENERAL: Uncomfortable, vomiting. SKIN: Warm and dry. HEAD: Atraumatic. Normocephalic. EYES: Pupils equal and round. No scleral icterus. No injection or drainage. ENT: No nasal bleeding or discharge. Mucous membranes pink and moist. NECK: Trachea midline. No JVD. CARDIOVASCULAR: Regular rate and rhythm. No murmur appreciated. RESPIRATORY: No accessory muscle use. Clear to auscultation. Breath sounds equal bilaterally. GASTROINTESTINAL: Abdomen soft, nondistended, no guarding. Tenderness to palpation. MUSCULOSKELETAL: No obvious deformities. No clubbing. No cyanosis. No edema. Left AVF with palpable thrill. NEUROLOGICAL: Awake and alert. Normal speech, very mild left facial droop, LUE 4 +/5, LLE 4+/5. All other extremities CRUZITO 5/5. Sensation grossly intact. PSYCH: Slightly flattened affect. Procedures LP Medications and IVs Current Medications Medications (Trade) Dose Ordered Sig/Bulmaro Route Start Time Stop Time Status Last Admin (Cardene Inj/NS 250 ml Inj) 260 ml @ 0 mls/hr TITRATE IV 08/08/16 19:45 08/10/16 16:46 (NS Flush) 2 ml BID IV FLUSH 08/09/16 09:00 08/13/16 08:39 (Tylenol) 650 mg Q6H PRN PO 08/08/16 21:30 08/11/16 08:31 (Zofran Inj) 4 mg Q6H PRN IV 08/08/16 21:30 08/13/16 08:39 (Dulcolax Ec) 10 mg DAILY PRN PO 08/08/16 21:30 (Senokot) 17.2 mg Q12H PRN PO 08/08/16 21:30 Miscellaneous Information 1 Q361D XX 08/08/16 21:30 (Chlorhexidine 2% Cloth) 3 pack Taper DAILY@04 TOP 08/09/16 04:00 08/05/17 03:59 08/13/16 05:10 (Chlorhexidine 2% Cloth) 3 pack UNSCH PRN TOP 08/08/16 21:30 (Trandate Inj) 20 mg Q2HR PRN IV PUSH 08/08/16 21:30 08/13/16 02:36 (NovoLOG SUPPLEMENTAL SCALE) 1 Q6HR SQ 08/09/16 00:00 (D50w (Vial) Inj) 25 ml UNSCH PRN IV 08/08/16 22:00 08/09/16 00:23 (Glucagon Inj) 1 mg UNSCH PRN IM/SQ 08/08/16 22:00 (Protonix) 40 mg DAILY PO 08/09/16 10:00 08/13/16 08:37 (Proscar) 5 mg DAILY PO 08/09/16 16:00 08/13/16 08:37 (Apresoline) 50 mg TID PO 08/09/16 18:00 08/13/16 12:55 (Coreg) 12.5 mg BID PO 08/09/16 16:00 08/13/16 08:36 (Cozaar) 100 mg HS PO 08/09/16 16:00 08/12/16 20:21 (Apresoline Inj) 10 mg Q30M PRN IV PUSH 08/09/16 16:00 08/12/16 13:21 (Dilaudid Pf Inj) 0.5 mg Q4H PRN IV PUSH 08/09/16 18:15 08/13/16 08:40 (Ativan) 0.5 mg Q6H PRN PO 08/09/16 23:00 08/12/16 23:35 (Renvela) 1,600 mg TIDAC PO 08/10/16 08:00 08/13/16 12:56 Vitamin B Complex/ Vit C/Folic Acid 1 cap 1 cap DAILY PO 08/10/16 09:00 08/13/16 08:37 (NS 1000 ml Inj) 1,000 ml @ 0 mls/hr Q0M PRN IV 08/09/16 22:56 08/12/16 09:16 Heparin Sodium (Porcine) 8000 units 8,000 units UNSCH PRN IVF 08/09/16 23:00 Sodium Chloride 1,000 ml @ 200 mls/hr Q5H PRN IV 08/09/16 22:56 (NS 1000 ml Inj) 1,000 ml @ 0 mls/hr Q0M PRN IV 08/09/16 22:56 (Mannitol Inj) 12.5 gm UNSCH PRN IV 08/09/16 23:00 (Albumin 25% Inj) 25 gm UNSCH PRN IV 08/09/16 23:00 (NS Flush) 5 ml UNSCH PRN IVF 08/09/16 23:00 08/10/16 18:38 (Heparin Inj) UNSCH PRN .XX 08/09/16 23:00 (Gentamicin (Dialysis) Inj) 20 mg UNSCH PRN IV 08/09/16 23:00 (Zofran Inj) 4 mg UNSCH PRN IV 08/09/16 23:00 (Tylenol) 650 mg UNSCH PRN PO 08/09/16 23:00 08/13/16 05:11 (Benadryl) 25 mg UNSCH PRN PO 08/09/16 23:00 (Nitrostat Sl) 0.4 mg UNSCH PRN SL 08/09/16 23:00 (Catapres) 0.1 mg UNSCH PRN PO 08/09/16 23:00 (Epogen Inj) 10,000 units UNSCH PRN IV 08/09/16 23:00 08/12/16 09:16 (Gelfoam 12 Mm/7 Mm Top) 1 foam UNSCH PRN TOP 08/09/16 23:00 08/12/16 09:16 (Procardia) 20 mg Q8HR PO 08/10/16 16:42 08/13/16 12:55 (Levaquin) 500 mg Q48H PO 08/12/16 14:00 08/12/16 13:21 (Flagyl) 500 mg Q8HR PO 08/11/16 14:00 08/13/16 12:56 (Remeron) 15 mg HS PO 08/11/16 21:00 08/12/16 20:21 A/P Assessment and Plan Encephalopathy/ Headache With left sided weakness. The pt was a stroke alert. Appreciate ID and neurology input. MRI with slight right-sided cortical enhancement. LP with slightly elevated protein. EEG with generalized slowing. Improving. Psych consult appreciated. Still with a severe headache. - frequent neuro checks. - possibly hypertensive encephalopathy. Continue blood pressure control. Improved. - continue Remeron per psych. - Ativan for anxiety. - antibiotics per ID. On vanco, Levaquin and Flagyl. - PT/ OT. - repeat head CT 08/13. - Fioricet as needed. Respiratory failure The pt had apnea events. Also some evidence of pulmonary edema. - volume management with dialysis. - oxygen and nebs as needed. - BiPAP at night for likely DEANNA. Hypertensive emergency With elevated troponin. Appreciate cardiology consult. Off of nicardipine drip. Blood pressure improved. - continue losartan, carvedilol, hydralazine and Procardia. - ASA. - hydralazine and labetalol prn. Abdominal pain Located in the right upper quadrant. Recent CT abdomen w/o contrast showed complex right renal cyst among other findings. LFTs unremarkable. Now with nausea and vomiting. - pain control and antiemetics as needed. - GI consult requested. - RUQ US pending. End-stage renal disease On hemodialysis. - dialysis per nephrology. Diabetes mellitus A1c 6.2%. Glucose well controlled 08/13. - SSI for glycemic control. Prophylaxis: PPI/SCDs/subcutaneous heparin. Discharge Planning Awaiting clinical improvement. Benja Lux DO Aug 13, 2016 13:13
--- NOTE | 2016-08-13 13:51 | RADRPT ---
EXAM DATE/TIME: 08/13/2016 13:42 [facility] COMPARISON: CT BRAIN W/O CONTRAST, August 08, 2016, 19:00. INDICATIONS : Headache, dizziness RADIATION DOSE: 48.92 CTDIvol (mGy) MEDICAL HISTORY : Hypertension. Diabetes mellitus type 2. Renal failure, chronic.sickle cell nasir t, hemodialysis SURGICAL HISTORY : None. ENCOUNTER: Subsequent ACUITY: 4 - 6 days PAIN SCALE: 3/10 LOCATION: cranial TECHNIQUE: Multiple contiguous axial images were obtained of the head. Using automated exposure control and adjustment of the mA and/or kV according to patient size, radiation dose was kept as low as reasonably achievable to obtain optimal diagnostic quality images. FINDINGS: CEREBRUM: The ventricles are normal for age. No evidence of midline shift, mass lesion, hemorrha ge or acute infarction. No extra-axial fluid collections are seen. POSTERIOR FOSSA: The cerebellum and brainstem are intact. The 4th ventricle is midline. The cer ebellopontine angle is unremarkable. EXTRACRANIAL: The visualized portion of the orbits is intact. SKULL: The calvaria is intact. No evidence of skull fracture. CONCLUSION: Negative for acute process. Bill Gotti MD FACR on August 13, 2016 at 13:48 Board Certified Radiologist. This report was verified electronically.
[2016-08-13 14:16] LABS: INDIRECT BILIRUBIN 0.2 MG/DL (0.0-0.8); TOTAL BILIRUBIN ADULT 0.3 MG/DL (0.2-1.0)
--- NOTE | 2016-08-13 15:05 | RADRPT ---
EXAM DATE/TIME: 08/13/2016 14:09 [facility] COMPARISON: CT ABDOMEN & PELVIS W/O CONTRAST, August 08, 2016, 19:58. INDICATIONS : Nausea and vomiting, abdominal pain. MEDICAL HISTORY : Hypertension. Gastroparesis. Sickle cell disease. Seizures. Chest pain. Depression. Anxiety.Tachyca rdia. Dyspnea. Renal disease and failure. Diabetes. Vertebrae fracture. Anemia. Multiple abdominal s urgeries due to poor sweat glands. Dialysis. Tenckhoff tube. Blood transfusions. SURGICAL HISTORY : Right eye surgery. AV shunt. ENCOUNTER: Subsequent ACUITY: 1 day PAIN SCORE: 0/10 LOCATION: Right upper quadrant MEASUREMENTS: LIVER: 15.0 cm length COMMON DUCT: 3 mm RIGHT KIDNEY: 12.0 x 7.0 x 6.5 cm FINDINGS: LIVER: Small nonspecific echogenic focus is seen in the left lobe of the liver. COMMON DUCT: No intraluminal mass or stone visualized. GALLBLADDER: The gallbladder is contracted with gallbladder wall thickening and multiple small stones. PANCREAS: The visualized portions are within normal limits. RIGHT KIDNEY: Is the lobulated complex areas seen in the right kidney measuring 4 cm. This should be further evalu ated by computed tomography without and with contrast. This was imaged with noncontrast study 7. CONCLUSION: Abnormal gallbladder. The patient is not tender over the gallbladder.. Bill Gotti MD FACR on August 13, 2016 at 15:01 Board Certified Radiologist. This report was verified electronically.
--- NOTE | 2016-08-13 15:28 | PD.CONS ---
HPI History of Present Illness This is a 45 year old with a hx of gastritis, gastroparesis, and chronic nausea/ vomiting for several years who is currently hospitalized for encephalopathy with left sided weakness. He was originally a stroke alert and is being followed by neurology and ID. His workup has revealed a mild right sided cortical enhancement, LP with mildly elevated protein, and his EEG had generalized slowing. GI has been consulted for persistent nausea/vomiting. Abdomen/Pelvis CT (08/08/16)----> 1. No obstruction or acute inflammatory changes are seen in the abdomen or pelvis. Normal appendix. 2. Complex cyst of the right kidney as described above. Further characterization with a contrast enhanced study is suggested when clinically feasible. 3. Small stones in a contracted gallbladder. No inflammatory changes. No ductal stone or ductal dilatation. 4. Areas of skin and subcutaneous hernia at the umbilicus. GB US ( 08/13/16)------> Abnormal gallbladder. The patient is not tender over the gallbladder. He has previously been evaluated with EGD/Colonoscopy (12/24/13)--- -> gastritis, pathology with reactive gastropathy with edema, immunohistochemistry for H. pylori is negative. The patient tells me that he has had intermittent nausea/vomiting for a few years. He reports that this seems to be worse at night and when he first wakes up in the morning. He cannot identify any aggravating foods or factors. He was given a trial of reglan in the past, but had a reaction of anxiety with this and therefore this was changed to erythromycin. He does not believe that he has had any improvement with this. The nurse reports that he vomited 3x yesterday and another 2 times today- consisting of bilious materia. He denies any abdominal pain, other than being "sore from vomiting." However, on exam he does have RUQ tenderness on exam. He denies any heartburn/reflux. He does believe that he has lost weight over the years, but cannot state how much. He denies any constipation, diarrhea, melena, or hematochezia. Of note, he did recently start taking Advil within the past month. (Tawnya Low) PFSH Past Medical History ESRD on HD Chronic pain DM HTN Gastroparesis Sickle cell trait Neuropathy Gastritis Past Surgical History AV fistula Abdominal surgery done when he was 2 weeks old EGD/Colonoscopy (Tawnya Low) Coded Allergies: Contrast Media (Unverified Allergy, Severe, nausea/vomiting, 08/08/16) causes n/v HAD TEST TODAY 11/15/11 TOOK BENADRYL AND DID OK. Reglan (Verified Allergy, Severe, ANXIETY, 08/08/16) Seafood (Verified Allergy, Severe, SWELLING-CANT BREATH-HIVES, 08/08/16) Medications Allergies Coded Allergies Type Severity Reaction Last Updated Verified Contrast Media Allergy Severe nausea/vomiting 08/08/16 No Reglan Allergy Severe ANXIETY 08/08/16 Yes Seafood Allergy Severe SWELLING-CANT BREATH-HIVES 08/08/16 Yes Active Scripts Medications Dose Route/Sig Days Date Category Dose Instructions Erythromycin Base 250 Mg Tab 250 Mg PO TIDAC 05/31/16 Rx Phenergan (Promethazine HCl) 25 Mg Tab 25 Mg PO Q6H PRN 05/31/16 Rx Zofran Odt (Ondansetron Odt) 4 Mg Tab 4 Mg SL Q6HR PRN 05/31/16 Rx Ativan (Lorazepam) 1 Mg Tab 1 Mg PO Q6H PRN 05/31/16 Rx Lortab (Hydrocodone-Acetaminophen) 5-325 Mg Tab 1-2 Tab PO Q6H PRN 04/20/16 Rx Bactrim DS (Sulfamethoxazole-Trimethoprim) 800-160 Mg Tab 1 Tab PO BID 04/20/16 Rx Nephro-Adan Rx (Vitamin B Cmplx/Vit C/Folic AC) 1 Tab 1 Tab PO 04/20/16 Reported Novolin 70-30 Inj (Insulin Human Isoph/Insulin Regular) 1,000 Unit/10 Ml Vial 1 Units SQ 04/20/16 Reported Losartan (Losartan Potassium) 100 Mg Tab 100 Mg PO HS 04/20/16 Reported Hydralazine (Hydralazine HCl) 50 Mg Tab 50 Mg PO TID 04/20/16 Reported Take with a meal Finasteride 5 Mg Tab 5 Mg PO DAILY 04/20/16 Reported Do not crush. Doxepin (Doxepin HCl) 100 Mg Cap 100 Mg PO HS 04/20/16 Reported Carvedilol 12.5 Mg Tab 12.5 Mg PO BID 04/20/16 Reported Calcium Acetate (Calcium Acetate (Phosphate Bin) 667 Mg Cap 04/20/16 Reported Family History No family hx of colon cancer or any other GI pathology. Social History Denies the use of tobacco, etoh, illicit drug use. (Tawnya Low) Review of Systems Constitutional: COMPLAINS OF: Fatigue, Weight loss, Change in appetite Respiratory: DENIES: Cough Cardiovascular: DENIES: Chest pain Gastrointestinal: COMPLAINS OF: Abdominal pain, Nausea, Vomiting, DENIES: Black stools, Bloody stools, Constipation, Diarrhea, Anorexia, Heartburn Musculoskeletal: COMPLAINS OF: Back pain, DENIES: Joint pain Integumentary: DENIES: Abnormal pigmentation Neurologic: COMPLAINS OF: Headache (Tawnya Low) GI Exam Vitals I&O Vital Signs Date Time Temp Pulse Resp B/P Pulse Ox O2 Delivery O2 Flow Rate FiO2 08/13/16 14:00 84 08/13/16 12:00 99.0 77 15 113/59 94 08/13/16 12:00 77 08/13/16 10:29 97 Nasal Cannula 3.00 08/13/16 10:00 82 08/13/16 08:00 99.1 82 25 141/65 99 08/13/16 08:00 82 08/13/16 06:50 15 08/13/16 06:11 17 08/13/16 06:00 87 08/13/16 04:00 86 08/13/16 04:00 99.3 86 17 158/71 100 08/13/16 02:00 90 08/13/16 00:00 93 08/13/16 00:00 100.1 93 18 153/69 99 08/12/16 22:00 94 08/12/16 20:05 99 Nasal Cannula 3.00 08/12/16 20:00 93 08/12/16 20:00 99.0 93 17 152/66 100 08/12/16 18:00 89 08/12/16 16:00 88 08/12/16 16:00 98.7 87 20 138/64 90 I/O 08/12/16 08/12/16 08/12/16 08/13/16 08/13/16 08/13/16 07:00 15:00 23:00 07:00 15:00 23:00 Intake Total 240 ml 250 ml 589 ml 535 ml 430 ml Output Total 150 ml 3550 ml 300 ml 100 ml 50 ml Balance 90 ml -3300 ml 289 ml 435 ml 380 ml Intake Oral 240 ml 180 ml 480 ml 480 ml 360 ml IV Total 70 ml 109 ml 55 ml 70 ml Output Urine Total 150 ml 50 ml 300 ml 100 ml 50 ml Hemodialysis 3500 ml # Bowel Movements 0 0 Imaging Last Impressions Head CT 08/13/16 Signed Impressions: Service Date/Time: Saturday, August 13, 2016 13:42 - CONCLUSION: Negative for acute process. Bill Gotti MD FACR Gall Bladder Ultrasound 08/13/16 Signed Impressions: Service Date/Time: Saturday, August 13, 2016 14:09 - CONCLUSION: Abnormal gallbladder. The patient is not tender over the gallbladder.. Bill Gotti MD FACR Upper Extremity CT 08/11/16 Signed Impressions: Service Date/Time: Thursday, August 11, 2016 08:54 - CONCLUSION: Induration around an AV fistula without a focal abscess seen. Casimiro Zapata MD Head/Brain Mag Res Venography 08/11/16 Signed Impressions: Service Date/Time: Thursday, August 11, 2016 12:59 - CONCLUSION: Dural sinus asymmetry which is likely developmental. No definite evidence of dural venous sinus thrombosis. Kiran Campbell MD Head Magnetic Resonance Angiography 08/11/16 Signed Impressions: Service Date/Time: Thursday, August 11, 2016 12:59 - CONCLUSION: Normal examination. No evidence of vasculopathy. Kiran Campbell MD Chest X-Ray 08/10/1625 Signed Impressions: Service Date/Time: Wednesday, August 10, 2016 08:47 - CONCLUSION: 1. Mild cardiomegaly and diffuse increased interstitial markings likely representing edema. Casimiro Zapata MD Upper Extremity Ultrasound 08/10/16 Signed Impressions: Service Date/Time: Wednesday, August 10, 2016 09:54 - CONCLUSION: 1. AV fistula present. This is patent. There is some dilatation of the proximal aspect of the fistula. 2. Dilatation of the axillary vein with some very mild peripheral mural thrombus seen. Casimiro Zapata MD Lumbar Puncture Fluoroscopy 08/09/16 Signed Impressions: Service Date/Time: Tuesday, August 09, 2016 12:45 - CONCLUSION: Uncomplicated fluoroscopically guided lumbar puncture. Opening pressure 26 cm H2O. Nemesio Badillo Jr., MD Abdomen/Pelvis CT 08/08/16 1933 Signed Impressions: Service Date/Time: Monday, August 08, 2016 19:58 - CONCLUSION: 1. No obstruction or acute inflammatory changes are seen in the abdomen or pelvis. Normal appendix. 2. Complex cyst of the right kidney as described above. Further characterization with a contrast enhanced study is suggested when clinically feasible. 3. Small stones in a contracted gallbladder. No inflammatory changes. No ductal stone or ductal dilatation. 4. Areas of skin and subcutaneous induration, especially the right buttock and left inguinal regions. These are nonspecific. Also a potential pilonidal cyst. 5. Diffuse sclerosis of the visualized osseous structures typical of chronic renal disease. Possible small brown tumors of the right iliac bone. 6. There is a small fat containing hernia at the umbilicus. Casimiro Hair MD Chest CT 08/08/16 0000 Signed Impressions: Service Date/Time: Monday, August 08, 2016 19:58 - CONCLUSION: 1. Trace failure in the proper clinical setting. 2. Small pericardial effusion, nonspecific. 3. Coronary artery calcification. 4. Upper limits of normal axillary lymph nodes. 5. Bilateral gynecomastia. Casimiro Hair MD Brain MRI 08/08/16 0000 Signed Impressions: Service Date/Time: Monday, August 08, 2016 21:28 - CONCLUSION: 1. No acute infarct. Mild chronic white matter ischemic changes with slight progression since 2012. Vladimir Singer MD Laboratory Test 08/13/16 02:40 White Blood Count 13.4 TH/MM3 Red Blood Count 3.04 MIL/MM3 Hemoglobin 8.4 GM/DL Hematocrit 26.5 % Mean Corpuscular Volume 87.3 FL Mean Corpuscular Hemoglobin 27.8 PG Mean Corpuscular Hemoglobin 31.8 % Concent Red Cell Distribution Width 20.2 % Platelet Count 399 TH/MM3 Mean Platelet Volume 7.1 FL Sodium Level 140 MEQ/L Potassium Level 4.1 MEQ/L Chloride Level 97 MEQ/L Carbon Dioxide Level 32.7 MEQ/L Anion Gap 10 MEQ/L Blood Urea Nitrogen 42 MG/DL Creatinine 8.82 MG/DL Estimat Glomerular Filtration 8 ML/MIN Rate Random Glucose 103 MG/DL Calcium Level 9.2 MG/DL Total Bilirubin 0.3 MG/DL Direct Bilirubin 0.1 MG/DL Indirect Bilirubin 0.2 MG/DL Aspartate Amino Transf 8 U/L (AST/SGOT) Alanine Aminotransferase 14 U/L (ALT/SGPT) Alkaline Phosphatase 79 U/L Total Protein 7.4 GM/DL Albumin 2.6 GM/DL Lipase 124 U/L Date/Time Procedure Status Source Growth 08/10/16 13:33 Aerobic Blood Culture - Preliminary Resulted Blood Other NO GROWTH IN 3 DAYS 08/10/16 13:33 Anaerobic Blood Culture - Preliminary Resulted Blood Other NO GROWTH IN 3 DAYS 08/09/16 14:38 Gram Stain - Final Complete Cerebral Spinal Fluid Lumbar Puncture 08/09/16 14:38 CSF Culture - Final Complete Cerebral Spinal Fluid Lumbar Puncture NO GROWTH IN 72 HOURS 08/09/16 14:38 Fungal Smear - Final Resulted Cerebral Spinal Fluid Lumbar Puncture NO FUNGAL ELEMENTS SEEN. 08/09/16 14:38 Fungal Culture Resulted Cerebral Spinal Fluid Lumbar Puncture Pending 08/09/16 14:38 Acid Fast Stain - Final Resulted Cerebral Spinal Fluid Lumbar Puncture NO ACID FAST BACILLI SEEN 08/09/16 14:38 Mycobacterial Culture Resulted Cerebral Spinal Fluid Lumbar Puncture Pending Physical Examination HEENT: Normocephalic; atraumatic; no jaundice. CHEST: CTA CARDIAC: RRR ABDOMEN: Soft, nondistended, RUQ tenderness; no hepatosplenomegaly; bowel sounds are present in all four quadrants. EXTREMITIES: No clubbing, cyanosis, or edema. SKIN: Normal; no rash; no jaundice. BEVELER: No focal deficits; Lethargic and oriented times three. (Tawnya Low) Assessment and Plan Plan ASSESSMENT: - Intractable nausea/vomiting, RUQ tenderness on exam. Abdomen/Pelvis CT (08/08)----> 1. No obstruction or acute inflammatory changes are seen in the abdomen or pelvis. Normal appendix. 2. Complex cyst of the right kidney as described above. Further characterization with a contrast enhanced study is suggested when clinically feasible. 3. Small stones in a contracted gallbladder. No inflammatory changes. No ductal stone or ductal dilatation. 4. Areas of skin and subcutaneous hernia at the umbilicus. GB US (08/13/16)------> Abnormal gallbladder. The patient is not tender over the gallbladder. EGD/Colonoscopy (12/24/13)----> gastritis, pathology with reactive gastropathy with edema, immunohistochemistry for H. pylori is negative. The patient tells me that he has had intermittent nausea/vomiting for a few years. Allergic to reglan. On EES, no significant improvement with this. He has been having persistent nausea/ vomiting with bilious material. He actually denies any abdominal pain other than "soreness from vomiting," but does have RUQ tenderness on exam. Mild leukocytosis. LFT unremarkable. Will get HIDA scan to rule out acute cholecystitis as the etiology of his symptoms. If this is negative, consider EGD. PPI. Trial bethanechol. ? Cholecystitis vs. gastroparesis vs. gastritis vs. other. - Leukocytosis. Mild. WBC 13.4. - Anemia, likely chronic secondary to renal disease. H/H 8.4/26.5. - Encephalopathy with headache/left sided weakness. Neuro workup with MRI mild right sided cortical enhancement, LP with mildly elevated protein, and his EEG had generalized slowing. ID/Neurology following. - ESRD, HD Tuesdays, , Saturdays - DM, HTN, Neuropathy per primary PLAN: - Clear liquids - HIDA Scan - Cont. PPI - Trial of Bethanechol - Monitor labs - If no improvement, consider EGD - Supportive care - Further recommendations to follow based on results of above - Pt seen and examined by Dr. Armendariz and myself and this note is written on his behalf (Tawnya Low) Physician Comments Seen and examined with COURT CRIER< HIDA scan ordered. Possible EGD if no improvement in symptoms on tuesday. Dr. Salazar will follow, thank you (Armen Armendariz MD) Tawnya Low Aug 13, 2016 15:28 Armen Armendariz MD Aug 13, 2016 18:30
[2016-08-13] MEDS: LORazepam 0.5 MG TAB PO PRN (17:22)
[2016-08-13] MEDS: PROCHLORPERAZINE INJ 10 MG/2 ML VIAL IVS PRN (20:02)
[2016-08-13] MEDS: MIRTAZAPINE 15 MG TAB PO SCH (21:07)
[2016-08-13] MEDS: LOSARTAN 50 MG TAB PO SCH (21:07)
[2016-08-13] MEDS: BETHANECHOL CHL 25 MG TAB PO SCH (21:08)
[2016-08-13] MEDS: ACETAMIN 325 MG/BUTALBITAL 50 MG/CAFFEINE 40 MG TAB PO PRN (21:08)
[2016-08-13 23:53] LABS: CF WEST NILE IGG LESS THAN 1.30 (()); CF WEST NILE IGM LESS THAN 0.90 (())
[2016-08-13 23:53] LABS: VITAMIN B6 LESS THAN 2.0 ng/mL (2.1-21.7)
[2016-08-14] VITALS (12 sets, daily range): BP systolic 134–159; BP diastolic 2–78; PULSE 83–96; RESP 16–24; TEMP 97.5–98.9; O2SAT 92–100
[2016-08-14] MEDS: HYDROmorphone HCL PF 1 MG/ML VIAL IV PUSH PRN ×5 (00:28→22:51)
[2016-08-14 03:38] LABS: HEMATOCRIT 26.4 % (39.0-51.0); MEAN CELL VOLUME 87.3 FL (80.0-100.0); MEAN CORPUSCULAR HEMOGLOBIN 27.5 PG (27.0-34.0); MEAN CORPUSCULAR HGB CONC 31.5 % (32.0-36.0); PLATELET COUNT 410 TH/MM3 (150-450); RED BLOOD COUNT 3.02 MIL/MM3 (4.50-5.90); RED CELL DISTRIBUTION WIDTH 20.2 % (11.6-17.2); REVIEW FLAG FINAL; WHITE BLOOD COUNT 11.6 TH/MM3 (4.0-11.0)
[2016-08-14 04:06] LABS: MAGNESIUM 2.3 MG/DL (1.5-2.5); POTASSIUM 4.6 MEQ/L (3.5-5.1)
[2016-08-14] MEDS: NIFEdipine 20 MG CAP PO SCH ×3 (05:20→22:51)
[2016-08-14] MEDS: CHLORHEXIDINE GLUCONATE 2 % 1 PACK (2 CLOTHS) TOP SCH (05:20)
[2016-08-14] MEDS: metroNIDAZOLE 500 MG TAB PO SCH ×3 (05:20→22:51)
[2016-08-14] MEDS: BETHANECHOL CHL 25 MG TAB PO SCH ×2 (05:21→15:10)
[2016-08-14] MEDS: LORazepam 0.5 MG TAB PO PRN (05:21)
[2016-08-14] MEDS: ACETAMIN 325 MG/BUTALBITAL 50 MG/CAFFEINE 40 MG TAB PO PRN (05:21)
[2016-08-14] MEDS: PROCHLORPERAZINE INJ 10 MG/2 ML VIAL IVS PRN (05:23)
[2016-08-14] MEDS: INSULIN ASPART SUPPLEMENTAL SCALE SQ SCH ×4 (05:47→16:42)
[2016-08-14] MEDS: EPOETIN ALFA 10,000 UNITS/ML VIAL IV PRN (08:51)
[2016-08-14] MEDS: SODIUM CHLOR 0.9% 1000 ML INJ 1,000 ML IV PRN (08:51)
[2016-08-14] MEDS: GELATIN 12 MM/7 MM FOAM TOP PRN (08:51)
[2016-08-14] MEDS: CARVEDILOL 12.5 MG TAB PO SCH ×2 (09:00→22:50)
[2016-08-14] MEDS: SODIUM CHLORIDE 0.9% FLUSH 5 ML FLUSH IV FLUSH SCH ×2 (09:00→22:53)
[2016-08-14] MEDS: VANCOMYCIN INJ 1,500 MG in SODIUM CHLORID 0.9% 500 ML INJ 500 ML IV SCH (09:24)
[2016-08-14] MEDS: VITAMIN B CMPLX/VITC/FOLIC AC CAP PO SCH (09:39)
[2016-08-14] MEDS: hydrALAZINE HCL 50 MG TAB PO SCH ×3 (09:40→17:33)
[2016-08-14] MEDS: FINASTERIDE 5 MG TAB PO SCH (09:40)
[2016-08-14] MEDS: SEVELAMER CARBONATE 800 MG TAB PO SCH ×3 (09:40→16:41)
[2016-08-14] MEDS: PANTOPRAZOLE SOD 40 MG DELAYED RELEASE TAB PO SCH (09:40)
--- NOTE | 2016-08-14 10:49 | HHI.NPPN ---
Subjective History of Present Illness 45-year-old male with past medical history of hypertension, cerebrovascular accident, history of chronic anemia who came to the hospital with altered mental status and confusion. I have seen the patient before in the past. He has now been following with Dr. Richardson and getting hemodialysis at [facility] in [facility] on Tuesday, and Tuesday. Additional Remarks Patient is alert, now on HD, not in distress. Review of Systems General Constitutional: Fatigue Respiratory Lungs: SOB, Cough Cardiovascular Cardiac: PAZ Objective Data Data 08/13/16 08/14/16 19:00 07:00 Intake Total 430 ml 668 ml Output Total 50 ml 80 ml Balance 380 ml 588 ml Intake Oral 360 ml 500 ml IV Total 70 ml 168 ml Output Urine Total 50 ml 80 ml # Bowel Movements 0 0 Vital Signs Date Time Temp Pulse Resp B/P Pulse Ox O2 Delivery O2 Flow Rate FiO2 08/14/16 09:13 100 Nasal Cannula 3.00 08/14/16 08:00 88 08/14/16 08:00 98.4 84 24 139/2 97 08/14/16 06:18 14 08/14/16 06:18 14 08/14/16 06:00 89 08/14/16 04:00 89 08/14/16 04:00 98.9 89 24 152/71 97 08/14/16 02:00 83 08/14/16 00:00 85 08/14/16 00:00 98.4 85 16 159/70 96 08/13/16 22:00 83 08/13/16 20:20 96 Nasal Cannula 3.00 08/13/16 20:00 98.9 101 24 172/82 96 08/13/16 20:00 101 08/13/16 18:00 93 08/13/16 16:00 99.5 86 16 133/59 99 08/13/16 16:00 86 08/13/16 14:00 84 08/13/16 12:00 99.0 77 15 113/59 94 08/13/16 12:00 77 -: 08/14/16 0318 08/14/16 0318 Physical Exam General Appearance: Well Nourished, Anxious Throat Throat Exam: Oral Mucosa [place] & Moist Neck Neck Exam: Neck Supple Pulmonary Resp Exam: Crackles, Rhonchi, Decreased Bases, Diminished Breath Sounds Cardiology CV Exam: Regular, Normal Sinus Rhythm Gastrointestinal/Abdomen GI Exam: Soft, Non-Tender, Bowel Sounds Present Extremeties Extremities Exam: Trace Edema Neurologic Neuro Exam: Alert, Awake Psychiatric Psych Exam: Appropriate Responses Assessment/Plan Assessment Summary: Fluid/Volume Overload, Hypertension, End Stage Renal Disease Problem List: (1) Hypertension, accelerated (2) Hyperkalemia (3) Diabetes (4) SOB (shortness of breath) (5) Altered mental status (6) ESRD (end stage renal disease) on dialysis Plan BP is better , off Nicardipine. Hgb. is stable. Continue HD TTS for now. HD now and removing 3 liters. BP is stable. U/S Gall Bladder noted, seen by GI. Going for HIDA scan. Problem Qualifiers (1) Diabetes: (2) Altered mental status: Qualified Code: R41.0 - Disorientation Teresita Carroll MD Aug 14, 2016 10:49
--- NOTE | 2016-08-14 13:47 | HHI.IDPN ---
Subjective Subjective Remarks ID COVERAGE is a 45 y.o AAM with PMHx of ESRD on HD Tues, Thurs, Sat, Hidradenitis suppurativa who has recd IV antibiotics in past, PORT in place for IV access issues, prior h/o TIA, prior h/o seizures. Notes reviewed Temps better Getting HD On Rx for Left AV fistula cellulitis as well as left axillary cellulitis secondary to Hidradenitis suppurativa. LP with only 5 WBC, but elevated protein HSV negative, crypto negative CSF VDRL and JV pending RPR negative Had some vomiting last night, none today Has some frontal CASTANEDA No photophobia MRA/MRV negative HIV negative. Hepatitis profile negative. CT LUE - some induration around AVF, no abscess Antibiotics Vanco IV Levaquin oral Flagyl oral Lines Line sites no e/o infection Past Medical History reviewed Allergies: Coded Allergies: Contrast Media (Unverified Allergy, Severe, nausea/vomiting, 08/08/16) causes n/v HAD TEST TODAY 11/15/11 TOOK BENADRYL AND DID OK. Reglan (Verified Allergy, Severe, ANXIETY, 08/08/16) Seafood (Verified Allergy, Severe, SWELLING-CANT BREATH-HIVES, 08/08/16) Objective . Vital Signs Date Time Temp Pulse Resp B/P Pulse Ox O2 Delivery O2 Flow Rate FiO2 08/14/16 12:00 98.4 96 24 144/72 97 08/14/16 12:00 88 08/14/16 10:00 88 08/14/16 09:13 100 Nasal Cannula 3.00 08/14/16 08:00 88 08/14/16 08:00 98.4 84 24 139/2 97 08/14/16 06:18 14 08/14/16 06:18 14 08/14/16 06:00 89 08/14/16 04:00 89 08/14/16 04:00 98.9 89 24 152/71 97 08/14/16 02:00 83 08/14/16 00:00 85 08/14/16 00:00 98.4 85 16 159/70 96 08/13/16 22:00 83 08/13/16 20:20 96 Nasal Cannula 3.00 08/13/16 20:00 98.9 101 24 172/82 96 08/13/16 20:00 101 08/13/16 18:00 93 08/13/16 16:00 99.5 86 16 133/59 99 08/13/16 16:00 86 08/13/16 14:00 84 08/13/16 08/13/16 08/14/16 15:00 23:00 07:00 Intake Total 430 ml 558 ml 110 ml Output Total 50 ml 30 ml 50 ml Balance 380 ml 528 ml 60 ml Intake Oral 360 ml 400 ml 100 ml IV Total 70 ml 158 ml 10 ml Output Urine Total 50 ml 30 ml 50 ml # Bowel Movements 0 0 0 . Laboratory Tests Test 08/13/16 08/14/16 02:40 03:18 White Blood Count 13.4 TH/MM3 11.6 TH/MM3 Red Blood Count 3.04 MIL/MM3 3.02 MIL/MM3 Hemoglobin 8.4 GM/DL 8.3 GM/DL Hematocrit 26.5 % 26.4 % Mean Corpuscular Volume 87.3 FL 87.3 FL Mean Corpuscular Hemoglobin 27.8 PG 27.5 PG Mean Corpuscular Hemoglobin 31.8 % 31.5 % Concent Red Cell Distribution Width 20.2 % 20.2 % Platelet Count 399 TH/MM3 410 TH/MM3 Mean Platelet Volume 7.1 FL 7.4 FL Laboratory Tests Test 08/13/16 08/14/16 02:40 03:18 Sodium Level 140 MEQ/L 139 MEQ/L Potassium Level 4.1 MEQ/L 4.6 MEQ/L Chloride Level 97 MEQ/L 97 MEQ/L Carbon Dioxide Level 32.7 MEQ/L 30.0 MEQ/L Anion Gap 10 MEQ/L 12 MEQ/L Blood Urea Nitrogen 42 MG/DL 49 MG/DL Creatinine 8.82 MG/DL 10.19 MG/DL Estimat Glomerular Filtration 8 ML/MIN 7 ML/MIN Rate Random Glucose 103 MG/DL 126 MG/DL Calcium Level 9.2 MG/DL 9.3 MG/DL Total Bilirubin 0.3 MG/DL Direct Bilirubin 0.1 MG/DL Indirect Bilirubin 0.2 MG/DL Aspartate Amino Transf 8 U/L (AST/SGOT) Alanine Aminotransferase 14 U/L (ALT/SGPT) Alkaline Phosphatase 79 U/L Total Protein 7.4 GM/DL Albumin 2.6 GM/DL Lipase 124 U/L Magnesium Level 2.3 MG/DL Imaging Last Impressions Upper Extremity CT 08/11/16 0000 Signed Impressions: Service Date/Time: Thursday, August 11, 2016 08:54 - CONCLUSION: Induration around an AV fistula without a focal abscess seen. Casimiro Zapata MD Chest X-Ray 08/10/16 0925 Signed Impressions: Service Date/Time: Wednesday, August 10, 2016 08:47 - CONCLUSION: 1. Mild cardiomegaly and diffuse increased interstitial markings likely representing edema. Casimiro Zapata MD Upper Extremity Ultrasound 08/10/16 0000 Signed Impressions: Service Date/Time: Wednesday, August 10, 2016 09:54 - CONCLUSION: 1. AV fistula present. This is patent. There is some dilatation of the proximal aspect of the fistula. 2. Dilatation of the axillary vein with some very mild peripheral mural thrombus seen. Casimiro Zapata MD Lumbar Puncture Fluoroscopy 08/09/16 0000 Signed Impressions: Service Date/Time: Tuesday, August 09, 2016 12:45 - CONCLUSION: Uncomplicated fluoroscopically guided lumbar puncture. Opening pressure 26 cm H2O. Nemesio Badillo Jr., MD Abdomen/Pelvis CT 08/08/16 193 Signed Impressions: Service Date/Time: Monday, August 08, 2016 19:58 - CONCLUSION: 1. No obstruction or acute inflammatory changes are seen in the abdomen or pelvis. Normal appendix. 2. Complex cyst of the right kidney as described above. Further characterization with a contrast enhanced study is suggested when clinically feasible. 3. Small stones in a contracted gallbladder. No inflammatory changes. No ductal stone or ductal dilatation. 4. Areas of skin and subcutaneous induration, especially the right buttock and left inguinal regions. These are nonspecific. Also a potential pilonidal cyst. 5. Diffuse sclerosis of the visualized osseous structures typical of chronic renal disease. Possible small brown tumors of the right iliac bone. 6. There is a small fat containing hernia at the umbilicus. Casimiro Hair MD Head CT 08/08/161852 Signed Impressions: Service Date/Time: Monday, August 08, 2016 19:00 - CONCLUSION: Normal examination for a patient of this age. No significant change has occurred. Vladimir Singer MD Chest CT 08/08/16 0000 Signed Impressions: Service Date/Time: Monday, August 08, 2016 19:58 - CONCLUSION: 1. Trace failure in the proper clinical setting. 2. Small pericardial effusion, nonspecific. 3. Coronary artery calcification. 4. Upper limits of normal axillary lymph nodes. 5. Bilateral gynecomastia. Casimiro Hair MD Brain MRI 08/08/16 0000 Signed Impressions: Service Date/Time: Monday, August 08, 2016 21:28 - CONCLUSION: 1. No acute infarct. Mild chronic white matter ischemic changes with slight progression since 2012. Vladimir Singer MD Physical Exam GENERAL: Awake and alert, NAD. SKIN: Cool and dry. No generalized rash HEAD: Atraumatic. Normocephalic. No temporal or scalp tenderness. EYES: [place] conjunctiva. Pupils equal round and reactive. Extraocular motions intact. No scleral icterus. No injection or drainage. ENT: Nose without bleeding, purulent drainage or septal hematoma. Moist mucosa NECK: Trachea midline. Supple, nontender, no meningeal signs. CARDIOVASCULAR: HS audible. No murmur appreciated. RESPIRATORY: Clear to auscultation. Breath sounds equal bilaterally. GASTROINTESTINAL: Abdomen soft, non-tender, nondistended. MUSCULOSKELETAL: Extremities without clubbing, cyanosis, or edema. LUE AV fistula site , better, no redness or induration. Not tender. Bruit and thrill +. Left axilla area with min erythema, no tenderness, and minimal discharge. NEUROLOGICAL: Awake and alert. Psych: cooperative. IV line sites with no e/o infection. PORT site with no e.o infection. Assessment & Plan Remarks Acute metabolic encephalopathy on admission Abnormal LP: given behavior issues would like to r/o neurosyphilis, CSF LEEANNE virus for PML and HIV screen Hidradenitis suppurativa with left axillary cellulitis/abscess. - better Left axillary and AV fistula site cellulitis. - better Complex cyst on kidney in CT non contrast. s/p port placement for IV access ESRD on HD Tues, Thurs, Sat per . ? missed HD session Mild to moderate mitral stenosis on ECHO. Recs: Continue Vanco IV in HD. Continue Levaquin oral Continue flagyl oral. Follow cultures Follow CSF LEEANNE virus, CSF VDRL Follow temps Monitor progress Tracy Small MD Aug 14, 2016 13:47
--- NOTE | 2016-08-14 14:32 | RADRPT ---
EXAM DATE/TIME: 08/14/2016 12:53 [place] COMPARISON: No previous studies available for comparison. INDICATIONS : Abdominal pain with chronic nausea and vomiting. DOSE: 4.1 mCi Tc99m Mebrofenin IV MEDICAL HISTORY : Hypertension. Diverticulitis. Gastroparesis. SURGICAL HISTORY : Colonoscopy. ENCOUNTER: Initial ACUITY: 3 weeks PAIN SCALE: 5/10 LOCATION: Right upper quadrant TECHNIQUE: Following the intravenous administration of radiotracer, dynamic sequential images were performed wit h continuous acquisition. FINDINGS: HEPATIC KINETICS: There is prompt uptake of radiotracer in the liver. No focal defects are seen. There is normal rate of washout from the hepatic parenchyma. BILIARY CLEARANCE: Activity is first seen in the extrahepatic biliary system at 5 minutes. There is normal excretion in to the small bowel. GALLBLADDER: Activity is first seen in the gallbladder at 10 minutes. Common bile duct kinetics are normal and th ere is no evidence of biliary obstruction. BILIARY ENTRIC REFLUX: None observed. CONCLUSION: No evidence of acute cholecystitis. No biliary tract obstruction. Lawrence Medel MD on August 14, 2016 at 14:30 Board Certified Radiologist. This report was verified electronically.
[2016-08-14] MEDS: LEVOFLOXACIN 500 MG TAB PO SCH (15:10)
--- NOTE | 2016-08-14 15:14 | HHI.PR ---
Subjective Remarks The patient was trying to eat lunch. He said he threw up earlier this morning but now was not nauseous. He said he still has a headache but it is improved. He denies any vision changes. He went for the HIDA scan earlier today. Discussed with nursing. He tolerated dialysis well today. Objective Vitals Vital Signs Date Time Temp Pulse Resp B/P Pulse Ox O2 Delivery O2 Flow Rate FiO2 08/14/16 12:00 98.4 96 24 144/72 97 08/14/16 12:00 88 08/14/16 10:00 88 08/14/16 09:13 100 Nasal Cannula 3.00 08/14/16 08:00 88 08/14/16 08:00 98.4 84 24 139/2 97 08/14/16 06:18 14 08/14/16 06:18 14 08/14/16 06:00 89 08/14/16 04:00 89 08/14/16 04:00 98.9 89 24 152/71 97 08/14/16 02:00 83 08/14/16 00:00 85 08/14/16 00:00 98.4 85 16 159/70 96 08/13/16 22:00 83 08/13/16 20:20 96 Nasal Cannula 3.00 08/13/16 20:00 98.9 101 24 172/82 96 08/13/16 20:00 101 08/13/16 18:00 93 08/13/16 16:00 99.5 86 16 133/59 99 08/13/16 16:00 86 I/O 08/13/16 08/13/16 08/13/16 08/14/16 08/14/16 08/14/16 07:00 15:00 23:00 07:00 15:00 23:00 Intake Total 535 ml 430 ml 558 ml 110 ml Output Total 100 ml 50 ml 30 ml 50 ml 3000 ml Balance 435 ml 380 ml 528 ml 60 ml -3000 ml Intake Oral 480 ml 360 ml 400 ml 100 ml IV Total 55 ml 70 ml 158 ml 10 ml Output Urine Total 100 ml 50 ml 30 ml 50 ml Hemodialysis 3000 ml # Bowel Movements 0 0 0 0 Result Diagram: 08/14/1631708/14/16317 Imaging Last Impressions Hepatobiliary Scan Nuclear Medicine 08/14/16 0000 Signed Impressions: Service Date/Time: Sunday, August 14, 2016 12:53 - CONCLUSION: No evidence of acute cholecystitis. No biliary tract obstruction. Lawrence Medel MD Head CT 08/13/16 0000 Signed Impressions: Service Date/Time: Saturday, August 13, 2016 13:42 - CONCLUSION: Negative for acute process. Bill Gotti MD FACR Gall Bladder Ultrasound 08/13/16 0000 Signed Impressions: Service Date/Time: Saturday, August 13, 2016 14:09 - CONCLUSION: Abnormal gallbladder. The patient is not tender over the gallbladder.. Bill Gotti MD FACR Upper Extremity CT 08/11/16 0000 Signed Impressions: Service Date/Time: Thursday, August 11, 2016 08:54 - CONCLUSION: Induration around an AV fistula without a focal abscess seen. Casimiro Zapata MD Head/Brain Mag Res Venography 08/11/16 0000 Signed Impressions: Service Date/Time: Thursday, August 11, 2016 12:59 - CONCLUSION: Dural sinus asymmetry which is likely developmental. No definite evidence of dural venous sinus thrombosis. Kiran Campbell MD Head Magnetic Resonance Angiography 08/11/16 Signed Impressions: Service Date/Time: Thursday, August 11, 2016 12:59 - CONCLUSION: Normal examination. No evidence of vasculopathy. Kiran Campbell MD Chest X-Ray 08/10/16 0925 Signed Impressions: Service Date/Time: Wednesday, August 10, 2016 08:47 - CONCLUSION: 1. Mild cardiomegaly and diffuse increased interstitial markings likely representing edema. Casimiro Zapata MD Upper Extremity Ultrasound 08/10/16 0000 Signed Impressions: Service Date/Time: Wednesday, August 10, 2016 09:54 - CONCLUSION: 1. AV fistula present. This is patent. There is some dilatation of the proximal aspect of the fistula. 2. Dilatation of the axillary vein with some very mild peripheral mural thrombus seen. Casimiro Zapata MD Lumbar Puncture Fluoroscopy 08/09/16 0000 Signed Impressions: Service Date/Time: Tuesday, August 09, 2016 12:45 - CONCLUSION: Uncomplicated fluoroscopically guided lumbar puncture. Opening pressure 26 cm H2O. Nemesio Badillo Jr., MD Abdomen/Pelvis CT 08/08/161932 Signed Impressions: Service Date/Time: Monday, August 08, 2016 19:58 - CONCLUSION: 1. No obstruction or acute inflammatory changes are seen in the abdomen or pelvis. Normal appendix. 2. Complex cyst of the right kidney as described above. Further characterization with a contrast enhanced study is suggested when clinically feasible. 3. Small stones in a contracted gallbladder. No inflammatory changes. No ductal stone or ductal dilatation. 4. Areas of skin and subcutaneous induration, especially the right buttock and left inguinal regions. These are nonspecific. Also a potential pilonidal cyst. 5. Diffuse sclerosis of the visualized osseous structures typical of chronic renal disease. Possible small brown tumors of the right iliac bone. 6. There is a small fat containing hernia at the umbilicus. Casimiro Hair MD Chest CT 08/08/16 0000 Signed Impressions: Service Date/Time: Monday, August 08, 2016 19:58 - CONCLUSION: 1. Trace failure in the proper clinical setting. 2. Small pericardial effusion, nonspecific. 3. Coronary artery calcification. 4. Upper limits of normal axillary lymph nodes. 5. Bilateral gynecomastia. Casimiro Hair MD Brain MRI 08/08/16 0000 Signed Impressions: Service Date/Time: Monday, August 08, 2016 21:28 - CONCLUSION: 1. No acute infarct. Mild chronic white matter ischemic changes with slight progression since 2012. Vladimir Singer MD Objective Remarks GENERAL: Sitting up, comfortable.. SKIN: Warm and dry. HEAD: Atraumatic. Normocephalic. EYES: Pupils equal and round. No scleral icterus. No injection or drainage. ENT: No nasal bleeding or discharge. Mucous membranes pink and moist. NECK: Trachea midline. No JVD. CARDIOVASCULAR: Regular rate and rhythm. No murmur appreciated. RESPIRATORY: No accessory muscle use. Clear to auscultation. Breath sounds equal bilaterally. GASTROINTESTINAL: Abdomen soft, nondistended, no guarding. No to palpation. No CVA tenderness. MUSCULOSKELETAL: No obvious deformities. No clubbing. No cyanosis. No edema. Left AVF with palpable thrill. NEUROLOGICAL: Awake and alert. Normal speech, very mild left facial droop, LUE 4 +/5, LLE 4+/5. All other extremities CRUZITO 5/5. Sensation grossly intact. PSYCH: Mood and affect appropriate. Procedures LP Medications and IVs Current Medications Medications (Trade) Dose Ordered Sig/Bulmaro Route Start Time Stop Time Status Last Admin (Cardene Inj/NS 250 ml Inj) 260 ml @ 0 mls/hr TITRATE IV 08/08/16 19:45 08/10/16 16:46 (NS Flush) 2 ml BID IV FLUSH 08/09/16 09:00 08/14/16 09:00 (Tylenol) 650 mg Q6H PRN PO 08/08/16 21:30 08/11/16 08:31 (Zofran Inj) 4 mg Q6H PRN IV 08/08/16 21:30 08/13/16 08:39 (Dulcolax Ec) 10 mg DAILY PRN PO 08/08/16 21:30 (Senokot) 17.2 mg Q12H PRN PO 08/08/16 21:30 Miscellaneous Information 1 Q361D XX 08/08/16 21:30 (Chlorhexidine 2% Cloth) Taper DAILY@04 TOP 08/09/16 04:00 08/05/17 03:59 08/14/16 05:20 (Chlorhexidine 2% Cloth) 3 pack UNSCH PRN TOP 08/08/16 21:30 (Trandate Inj) 20 mg Q2HR PRN IV PUSH 08/08/16 21:30 08/13/16 21:33 (NovoLOG SUPPLEMENTAL SCALE) 1 Q6HR SQ 08/09/16 00:00 (D50w (Vial) Inj) 25 ml UNSCH PRN IV 08/08/16 22:00 08/09/16 00:23 (Glucagon Inj) 1 mg UNSCH PRN IM/SQ 08/08/16 22:00 (Protonix) 40 mg DAILY PO 08/09/16 10:00 08/14/16 09:40 (Proscar) 5 mg DAILY PO 08/09/16 16:00 08/14/16 09:40 (Apresoline) 50 mg TID PO 08/09/16 18:00 08/14/16 09:40 (Coreg) 12.5 mg BID PO 08/09/16 16:00 08/14/16 09:00 (Cozaar) 100 mg HS PO 08/09/16 16:00 08/13/16 21:07 (Apresoline Inj) 10 mg Q30M PRN IV PUSH 08/09/16 16:00 08/12/16 13:21 (Dilaudid Pf Inj) 0.5 mg Q4H PRN IV PUSH 08/09/16 18:15 08/14/16 05:48 (Ativan) 0.5 mg Q6H PRN PO 08/09/16 23:00 08/14/16 05:21 (Renvela) 1,600 mg TIDAC PO 08/10/16 08:00 08/14/16 09:40 Vitamin B Complex/ Vit C/Folic Acid 1 cap 1 cap DAILY PO 08/10/16 09:00 08/14/16 09:39 (NS 1000 ml Inj) 1,000 ml @ 0 mls/hr Q0M PRN IV 08/09/16 22:56 08/14/16 08:51 Heparin Sodium (Porcine) 8000 units 8,000 units UNSCH PRN IVF 08/09/16 23:00 Sodium Chloride 1,000 ml @ 200 mls/hr Q5H PRN IV 08/09/16 22:56 (NS 1000 ml Inj) 1,000 ml @ 0 mls/hr Q0M PRN IV 08/09/16 22:56 (Mannitol Inj) 12.5 gm UNSCH PRN IV 08/09/16 23:00 (Albumin 25% Inj) 25 gm UNSCH PRN IV 08/09/16 23:00 (NS Flush) 5 ml UNSCH PRN IVF 08/09/16 23:00 08/10/16 18:38 (Heparin Inj) UNSCH PRN .XX 08/09/16 23:00 (Gentamicin (Dialysis) Inj) 20 mg UNSCH PRN IV 08/09/16 23:00 (Zofran Inj) 4 mg UNSCH PRN IV 08/09/16 23:00 (Tylenol) 650 mg UNSCH PRN PO 08/09/16 23:00 08/13/16 05:11 (Benadryl) 25 mg UNSCH PRN PO 08/09/16 23:00 (Nitrostat Sl) 0.4 mg UNSCH PRN SL 08/09/16 23:00 (Catapres) 0.1 mg UNSCH PRN PO 08/09/16 23:00 (Epogen Inj) 10,000 units UNSCH PRN IV 08/09/16 23:00 08/14/16 08:51 (Gelfoam 12 Mm/7 Mm Top) 1 foam UNSCH PRN TOP 08/09/16 23:00 08/14/16 08:51 (Procardia) 20 mg Q8HR PO 08/10/16 16:42 08/14/16 05:20 (Levaquin) 500 mg Q48H PO 08/12/16 14:00 08/12/16 13:21 (Flagyl) 500 mg Q8HR PO 08/11/16 14:00 08/14/16 05:20 (Remeron) 15 mg HS PO 08/11/16 21:00 08/13/16 21:07 (Compazine Inj) 5 mg Q8H PRN IVS 08/13/16 13:00 08/14/16 05:23 (Fioricet 325-50-40) 1 tab Q6H PRN PO 08/13/16 13:15 08/14/16 05:21 (Urecholine) 25 mg Q8HR PO 08/13/16 22:00 08/14/16 05:21 A/P Assessment and Plan Encephalopathy/ Headache With left sided weakness. The pt was a stroke alert. Appreciate ID and neurology input. MRI with slight right-sided cortical enhancement. LP with slightly elevated protein. EEG with generalized slowing. Improving. Psych consult appreciated. Repeat head CT 08/13 without acute process. Headache has improved. - neuro checks. - possibly hypertensive encephalopathy. Continue blood pressure control. Improved. - continue Remeron per psych. - Ativan for anxiety. - antibiotics per ID. On vanco, Levaquin and Flagyl. - PT/ OT. - Fioricet as needed. Respiratory failure The pt had apnea events. Also some evidence of pulmonary edema. On 3L NC 08/14. - volume management with dialysis. - oxygen and nebs as needed. - BiPAP at night for likely DEANNA. Hypertensive emergency With elevated troponin. Appreciate cardiology consult. Off of nicardipine drip. Blood pressure improved. - continue losartan, carvedilol, hydralazine and Procardia. - ASA. - hydralazine and labetalol prn. Abdominal pain Located in the right upper quadrant. Recent CT abdomen w/o contrast showed complex right renal cyst among other findings. LFTs unremarkable. Now with nausea and vomiting. RUQ US with abnormal gallbladder. GI consult appreciated. HIDA scan unremarkable. Improved 08/14. - pain control and antiemetics as needed. - follow-up with GI. Continue bethanechol. End-stage renal disease On hemodialysis. - dialysis per nephrology. Diabetes mellitus A1c 6.2%. Glucose well controlled 08/14. - SSI for glycemic control. Prophylaxis: PPI/SCDs/subcutaneous heparin. Discharge Planning Transfer to the floor. Benja Lux DO Aug 14, 2016 15:14
--- NOTE | 2016-08-14 16:09 | HHI.GIFU ---
Subjective Remarks Resting in bed. Eating lunch. He seems to be tolerating this well. Does report that he had some nausea and some dry heaving earlier. No abdominal pain. (Tawnya Low) Objective Vitals I&O Vital Signs Date Time Temp Pulse Resp B/P Pulse Ox O2 Delivery O2 Flow Rate FiO2 08/14/16 12:00 98.4 96 24 144/72 97 08/14/16 12:00 88 08/14/16 10:00 88 08/14/16 09:13 100 Nasal Cannula 3.00 08/14/16 08:00 88 08/14/16 08:00 98.4 84 24 139/2 97 08/14/16 06:18 14 08/14/16 06:18 14 08/14/16 06:00 89 08/14/16 04:00 89 08/14/16 04:00 98.9 89 24 152/71 97 08/14/16 02:00 83 08/14/16 00:00 85 08/14/16 00:00 98.4 85 16 159/70 96 08/13/16 22:00 83 08/13/16 20:20 96 Nasal Cannula 3.00 08/13/16 20:00 98.9 101 24 172/82 96 08/13/16 20:00 101 08/13/16 18:00 93 I/O 08/13/16 08/13/16 08/13/16 08/14/16 08/14/16 08/14/16 07:00 15:00 23:00 07:00 15:00 23:00 Intake Total 535 ml 430 ml 558 ml 110 ml Output Total 100 ml 50 ml 30 ml 50 ml 3000 ml Balance 435 ml 380 ml 528 ml 60 ml -3000 ml Intake Oral 480 ml 360 ml 400 ml 100 ml IV Total 55 ml 70 ml 158 ml 10 ml Output Urine Total 100 ml 50 ml 30 ml 50 ml Hemodialysis 3000 ml # Bowel Movements 0 0 0 0 Laboratory Laboratory Tests Test 08/14/16 03:18 White Blood Count 11.6 Red Blood Count 3.02 Hemoglobin 8.3 Hematocrit 26.4 Mean Corpuscular Volume 87.3 Mean Corpuscular Hemoglobin 27.5 Mean Corpuscular Hemoglobin 31.5 Concent Red Cell Distribution Width 20.2 Platelet Count 410 Mean Platelet Volume 7.4 Sodium Level 139 Potassium Level 4.6 Chloride Level 97 Carbon Dioxide Level 30.0 Anion Gap 12 Blood Urea Nitrogen 49 Creatinine 10.19 Estimat Glomerular Filtration 7 Rate Random Glucose 126 Calcium Level 9.3 Magnesium Level 2.3 Date/Time Procedure Status Source Growth 08/10/16 13:33 Aerobic Blood Culture - Preliminary Resulted Blood Other NO GROWTH IN 4 DAYS 08/10/16 13:33 Anaerobic Blood Culture - Preliminary Resulted Blood Other NO GROWTH IN 4 DAYS 08/09/16 20:05 Aerobic Blood Culture - Final Complete Blood Peripheral NO GROWTH IN 5 DAYS 08/09/16 20:05 Anaerobic Blood Culture - Final Complete Blood Peripheral NO GROWTH IN 5 DAYS Imaging Last Impressions Hepatobiliary Scan Nuclear Medicine 08/14/16 0000 Signed Impressions: Service Date/Time: Sunday, August 14, 2016 12:53 - CONCLUSION: No evidence of acute cholecystitis. No biliary tract obstruction. Lawrence Medel MD Head CT 08/13/16 0000 Signed Impressions: Service Date/Time: Saturday, August 13, 2016 13:42 - CONCLUSION: Negative for acute process. Bill Gotti MD FACR Gall Bladder Ultrasound 08/13/16 0000 Signed Impressions: Service Date/Time: Saturday, August 13, 2016 14:09 - CONCLUSION: Abnormal gallbladder. The patient is not tender over the gallbladder.. Bill Gotti MD FACR Upper Extremity CT 08/11/16 0000 Signed Impressions: Service Date/Time: Thursday, August 11, 2016 08:54 - CONCLUSION: Induration around an AV fistula without a focal abscess seen. Casimiro Zapata MD Head/Brain Mag Res Venography 08/11/16 0000 Signed Impressions: Service Date/Time: Thursday, August 11, 2016 12:59 - CONCLUSION: Dural sinus asymmetry which is likely developmental. No definite evidence of dural venous sinus thrombosis. Kiran Campbell MD Head Magnetic Resonance Angiography 08/11/16 0000 Signed Impressions: Service Date/Time: Thursday, August 11, 2016 12:59 - CONCLUSION: Normal examination. No evidence of vasculopathy. Kiran Campbell MD Chest X-Ray 08/10/16 0925 Signed Impressions: Service Date/Time: Wednesday, August 10, 2016 08:47 - CONCLUSION: 1. Mild cardiomegaly and diffuse increased interstitial markings likely representing edema. Casimiro Zapata MD Upper Extremity Ultrasound 08/10/16 0000 Signed Impressions: Service Date/Time: Wednesday, August 10, 2016 09:54 - CONCLUSION: 1. AV fistula present. This is patent. There is some dilatation of the proximal aspect of the fistula. 2. Dilatation of the axillary vein with some very mild peripheral mural thrombus seen. Casimiro Zapata MD Lumbar Puncture Fluoroscopy 08/09/16 0000 Signed Impressions: Service Date/Time: Tuesday, August 09, 2016 12:45 - CONCLUSION: Uncomplicated fluoroscopically guided lumbar puncture. Opening pressure 26 cm H2O. Nemesio Badillo Jr., MD Abdomen/Pelvis CT 08/08/161932 Signed Impressions: Service Date/Time: Monday, August 08, 2016 19:58 - CONCLUSION: 1. No obstruction or acute inflammatory changes are seen in the abdomen or pelvis. Normal appendix. 2. Complex cyst of the right kidney as described above. Further characterization with a contrast enhanced study is suggested when clinically feasible. 3. Small stones in a contracted gallbladder. No inflammatory changes. No ductal stone or ductal dilatation. 4. Areas of skin and subcutaneous induration, especially the right buttock and left inguinal regions. These are nonspecific. Also a potential pilonidal cyst. 5. Diffuse sclerosis of the visualized osseous structures typical of chronic renal disease. Possible small brown tumors of the right iliac bone. 6. There is a small fat containing hernia at the umbilicus. Casimiro Hair MD Chest CT 08/08/16 0000 Signed Impressions: Service Date/Time: Monday, August 08, 2016 19:58 - CONCLUSION: 1. Trace failure in the proper clinical setting. 2. Small pericardial effusion, nonspecific. 3. Coronary artery calcification. 4. Upper limits of normal axillary lymph nodes. 5. Bilateral gynecomastia. Casimiro Hair MD Brain MRI 08/08/16 0000 Signed Impressions: Service Date/Time: Monday, August 08, 2016 21:28 - CONCLUSION: 1. No acute infarct. Mild chronic white matter ischemic changes with slight progression since 2012. Vladimir Singer MD Physical Exam HEENT: Normocephalic; atraumatic; no jaundice. CHEST: CTA CARDIAC: RRR ABDOMEN: Soft, nondistended, nontender; no hepatosplenomegaly; bowel sounds are present in all four quadrants. EXTREMITIES: No clubbing, cyanosis, or edema. SKIN: Normal; no rash; no jaundice. DRUG SAFETY DATA MANAGEMENT SPECIALIST: No focal deficits; alert and oriented times three. (Tawnya Low) Assessment and Plan Plan ASSESSMENT: - Intractable nausea/vomiting, RUQ tenderness on exam. Last EGD (12/24/13)---- > gastritis, pathology with reactive gastropathy with edema, immunohistochemistry for H. pylori is negative. Abdomen/Pelvis CT (08/08/16)----> 1. No obstruction or acute inflammatory changes are seen in the abdomen or pelvis. Normal appendix. 2. Complex cyst of the right kidney as described above. Further characterization with a contrast enhanced study is suggested when clinically feasible. 3. Small stones in a contracted gallbladder. No inflammatory changes. No ductal stone or ductal dilatation. 4. Areas of skin and subcutaneous hernia at the umbilicus. GB US (08/13/16)------> Abnormal gallbladder. The patient is not tender over the gallbladder. The patient tells me that he has had intermittent nausea/vomiting for a few years. Allergic to reglan. On EES, no significant improvement with this. HIDA Scan (08/14/16) negative exam. Mild leukocytosis. LFT unremarkable. He seems to be doing better today and is tolerating his lunch so far. He does continue to have some nausea, but states that overall, he is much improved today. Trial of phenergan prn. - Leukocytosis. Mild. WBC 11.6. - Anemia, likely chronic secondary to renal disease. H/H 8.3/26.4. - Encephalopathy with headache/left sided weakness. Neuro workup with MRI mild right sided cortical enhancement, LP with mildly elevated protein, and his EEG had generalized slowing. ID/Neurology following. - ESRD, HD Tuesdays, , Saturdays - DM, HTN, Neuropathy per primary PLAN: - IBAN- soft foods, chew food well, small bites, small frequent meals - Cont. PPI - Trial of phenergan prn - Monitor labs - Supportive care - Further recommendations to follow based on results of above - Pt seen and examined by Dr. Salazar and myself and this note is written on his behalf (Tawnya Low) Physician Comments Patient seen and examined Agree with above Continue with current supportive care Monitor labs (David Salazar MD) Tawnya Low Aug 14, 2016 16:08 David Salazar MD Aug 14, 2016 17:23
[2016-08-14] MEDS ORDERED: PROMETHAZINE HCL 25 MG TAB PO PRN (16:15)
[2016-08-14] MEDS: LOSARTAN 50 MG TAB PO SCH (22:50)
[2016-08-14] MEDS: MIRTAZAPINE 15 MG TAB PO SCH (22:51)
[2016-08-15] VITALS (7 sets, daily range): BP systolic 105–184; BP diastolic 51–85; PULSE 86–105; RESP 16–20; TEMP 98.6–99.9; O2SAT 92–97
[2016-08-15] MEDS: LORazepam 0.5 MG TAB PO PRN (03:06)
[2016-08-15] MEDS: HYDROmorphone HCL PF 1 MG/ML VIAL IV PUSH PRN ×5 (03:07→21:59)
[2016-08-15] MEDS: CHLORHEXIDINE GLUCONATE 2 % 1 PACK (2 CLOTHS) TOP SCH (03:12)
[2016-08-15] MEDS: metroNIDAZOLE 500 MG TAB PO SCH ×3 (05:54→21:59)
[2016-08-15] MEDS: NIFEdipine 20 MG CAP PO SCH ×3 (05:54→21:58)
[2016-08-15] MEDS: INSULIN ASPART SUPPLEMENTAL SCALE SQ SCH ×4 (06:00→17:28)
[2016-08-15 06:19] LABS: BASOPHIL # 0.2 TH/MM3 (0-0.2); BASOPHIL % 1.2 % (0.0-2.0); EOSINOPHIL # 0.3 TH/MM3 (0-0.4); EOSINOPHIL % 2.4 % (0.0-4.0); HEMATOCRIT 26.3 % (39.0-51.0); HEMO FLAGS DIFF FINAL; LYMPH % 5.7 % (9.0-44.0); LYMPHOCYTE # 0.8 TH/MM3 (1.0-4.8); MEAN CELL VOLUME 87.3 FL (80.0-100.0); MEAN CORPUSCULAR HEMOGLOBIN 27.5 PG (27.0-34.0); MEAN CORPUSCULAR HGB CONC 31.5 % (32.0-36.0); MONO % 11.3 % (0.0-8.0); NEUT % 79.4 % (16.0-70.0); PLATELET COUNT 431 TH/MM3 (150-450); RED BLOOD COUNT 3.01 MIL/MM3 (4.50-5.90); RED CELL DISTRIBUTION WIDTH 20.1 % (11.6-17.2); WHITE BLOOD COUNT 13.9 TH/MM3 (4.0-11.0)
[2016-08-15 07:05] LABS: BICARBONATE 28.9 MEQ/L (21.0-32.0)
[2016-08-15] MEDS: CARVEDILOL 12.5 MG TAB PO SCH ×2 (07:59→21:58)
[2016-08-15] MEDS: SEVELAMER CARBONATE 800 MG TAB PO SCH ×3 (07:59→16:44)
[2016-08-15] MEDS: PANTOPRAZOLE SOD 40 MG DELAYED RELEASE TAB PO SCH (08:00)
[2016-08-15] MEDS: ONDANSETRON HCL 4 MG/2 ML VIAL IV PRN (08:03)
[2016-08-15] MEDS: hydrALAZINE HCL 50 MG TAB PO SCH ×3 (08:04→16:44)
[2016-08-15] MEDS: SODIUM CHLORIDE 0.9% FLUSH 5 ML FLUSH IV FLUSH SCH ×2 (08:04→21:59)
[2016-08-15] MEDS: FINASTERIDE 5 MG TAB PO SCH (08:04)
[2016-08-15] MEDS: VITAMIN B CMPLX/VITC/FOLIC AC CAP PO SCH (08:04)
--- NOTE | 2016-08-15 12:01 | HHI.NPPN ---
Subjective History of Present Illness 45-year-old male with past medical history of hypertension, cerebrovascular accident, history of chronic anemia who came to the hospital with altered mental status and confusion. I have seen the patient before in the past. He has now been following with Dr. Richardson and getting hemodialysis at [facility] in [facility] on Tuesday, and Tuesday. Additional Remarks Patient is alert, has some headache, now better, also nausea. Review of Systems General Constitutional: Fatigue Respiratory Lungs: SOB, Cough Cardiovascular Cardiac: PAZ Objective Data Data 08/14/16 08/15/16 19:00 07:00 Intake Total 255 ml 840 ml Output Total 3050 ml 100 ml Balance -2795 ml 740 ml Intake Oral 240 ml 840 ml IV Total 15 ml Output Urine Total 50 ml 100 ml Hemodialysis 3000 ml # Voids 1 1 # Bowel Movements 1 0 Vital Signs Date Time Temp Pulse Resp B/P Pulse Ox O2 Delivery O2 Flow Rate FiO2 08/15/16 08:23 18 08/15/16 08:00 99.2 93 18 105/51 93 08/15/16 04:00 98.7 86 18 132/60 92 08/15/16 00:00 98.8 95 20 181/85 97 08/14/16 20:00 98.3 96 24 150/71 92 08/14/16 17:39 97.5 89 17 134/78 100 08/14/16 16:00 98.3 91 24 140/63 97 08/14/16 16:00 88 08/14/16 16:00 88 08/14/16 14:00 88 08/14/16 12:00 98.4 96 24 144/72 97 08/14/16 12:00 88 -: 08/15/16 0555 08/15/16 0555 Physical Exam General Appearance: Well Nourished, Anxious Throat Throat Exam: Oral Mucosa [place] & Moist Neck Neck Exam: Neck Supple Pulmonary Resp Exam: Crackles, Rhonchi, Decreased Bases, Diminished Breath Sounds Cardiology CV Exam: Regular, Normal Sinus Rhythm Gastrointestinal/Abdomen GI Exam: Soft, Non-Tender, Bowel Sounds Present Extremeties Extremities Exam: Trace Edema Neurologic Neuro Exam: Alert, Awake Psychiatric Psych Exam: Appropriate Responses Assessment/Plan Assessment Summary: Fluid/Volume Overload, Hypertension, End Stage Renal Disease Problem List: (1) Hypertension, accelerated (2) Hyperkalemia (3) Diabetes (4) SOB (shortness of breath) (5) Altered mental status (6) ESRD (end stage renal disease) on dialysis Plan BP is better , off Nicardipine. Hgb. is stable. Continue HD TTS for now. BP is stable. U/S Gall Bladder noted, seen by GI. HIDA scan negative. HD done yesterday and 3 liters removed. BOP is now better controlled. Problem Qualifiers (1) Diabetes: (2) Altered mental status: Qualified Code: R41.0 - Disorientation Teresita Carroll MD Aug 15, 2016 12:01
--- NOTE | 2016-08-15 12:45 | HHI.IDPN ---
Subjective Subjective Remarks ID COVERAGE is a 45 y.o AAM with PMHx of ESRD on HD Tues, Thurs, Sat, Hidradenitis suppurativa who has recd IV antibiotics in past, PORT in place for IV access issues, prior h/o TIA, prior h/o seizures. Notes reviewed Temps better Has some CASTANEDA No vomiting, some nausea earlier CSF VDRL and LEEANNE still pending On Rx for Left AV fistula cellulitis as well as left axillary cellulitis secondary to Hidradenitis suppurativa. LP with only 5 WBC, but elevated protein HSV negative, crypto negative RPR negative MRA/MRV negative HIV negative. Hepatitis profile negative. CT LUE - some induration around AVF, no abscess Antibiotics Vanco IV Levaquin oral Flagyl oral Lines Line sites no e/o infection Past Medical History reviewed Allergies: Coded Allergies: Contrast Media (Unverified Allergy, Severe, nausea/vomiting, 08/08/16) causes n/v HAD TEST TODAY 11/15/11 TOOK BENADRYL AND DID OK. Reglan (Verified Allergy, Severe, ANXIETY, 08/08/16) Seafood (Verified Allergy, Severe, SWELLING-CANT BREATH-HIVES, 08/08/16) Objective . Vital Signs Date Time Temp Pulse Resp B/P Pulse Ox O2 Delivery O2 Flow Rate FiO2 08/15/16 12:27 99.5 87 18 139/62 92 08/15/16 08:23 18 08/15/16 08:00 99.2 93 18 105/51 93 08/15/16 04:00 98.7 86 18 132/60 92 08/15/16 00:00 98.8 95 20 181/85 97 08/14/16 20:00 98.3 96 24 150/71 92 08/14/16 17:39 97.5 89 17 134/78 100 08/14/16 16:00 98.3 91 24 140/63 97 08/14/16 16:00 88 08/14/16 16:00 88 08/14/16 14:00 88 08/14/16 08/14/16 08/15/16 15:00 23:00 07:00 Intake Total 255 ml 240 ml 600 ml Output Total 3050 ml 100 ml Balance -2795 ml 240 ml 500 ml Intake Oral 240 ml 240 ml 600 ml IV Total 15 ml Output Urine Total 50 ml 100 ml Hemodialysis 3000 ml # Voids 1 1 # Bowel Movements 1 0 . Laboratory Tests Test 08/14/16 08/15/16 03:18 05:55 White Blood Count 11.6 TH/MM3 13.9 TH/MM3 Red Blood Count 3.02 MIL/MM3 3.01 MIL/MM3 Hemoglobin 8.3 GM/DL 8.3 GM/DL Hematocrit 26.4 % 26.3 % Mean Corpuscular Volume 87.3 FL 87.3 FL Mean Corpuscular Hemoglobin 27.5 PG 27.5 PG Mean Corpuscular Hemoglobin 31.5 % 31.5 % Concent Red Cell Distribution Width 20.2 % 20.1 % Platelet Count 410 TH/MM3 431 TH/MM3 Mean Platelet Volume 7.4 FL 6.7 FL Neutrophils (%) (Auto) 79.4 % Lymphocytes (%) (Auto) 5.7 % Monocytes (%) (Auto) 11.3 % Eosinophils (%) (Auto) 2.4 % Basophils (%) (Auto) 1.2 % Neutrophils # (Auto) 11.0 TH/MM3 Lymphocytes # (Auto) 0.8 TH/MM3 Monocytes # (Auto) 1.6 TH/MM3 Eosinophils # (Auto) 0.3 TH/MM3 Basophils # (Auto) 0.2 TH/MM3 CBC Comment DIFF FINAL Differential Comment Laboratory Tests Test 08/14/16 08/15/16 03:18 05:55 Sodium Level 139 MEQ/L 140 MEQ/L Potassium Level 4.6 MEQ/L 5.0 MEQ/L Chloride Level 97 MEQ/L 99 MEQ/L Carbon Dioxide Level 30.0 MEQ/L 28.9 MEQ/L Anion Gap 12 MEQ/L 12 MEQ/L Blood Urea Nitrogen 49 MG/DL 37 MG/DL Creatinine 10.19 MG/DL 8.68 MG/DL Estimat Glomerular Filtration 7 ML/MIN 8 ML/MIN Rate Random Glucose 126 MG/DL 93 MG/DL Calcium Level 9.3 MG/DL 9.7 MG/DL Magnesium Level 2.3 MG/DL Imaging Last Impressions Upper Extremity CT 08/11/16 0000 Signed Impressions: Service Date/Time: Thursday, August 11, 2016 08:54 - CONCLUSION: Induration around an AV fistula without a focal abscess seen. Casimiro Zapata MD Chest X-Ray 08/10/16 0925 Signed Impressions: Service Date/Time: Wednesday, August 10, 2016 08:47 - CONCLUSION: 1. Mild cardiomegaly and diffuse increased interstitial markings likely representing edema. Casimiro Zapata MD Upper Extremity Ultrasound 08/10/16 Signed Impressions: Service Date/Time: Wednesday, August 10, 2016 09:54 - CONCLUSION: 1. AV fistula present. This is patent. There is some dilatation of the proximal aspect of the fistula. 2. Dilatation of the axillary vein with some very mild peripheral mural thrombus seen. Casimiro Zapata MD Lumbar Puncture Fluoroscopy 08/09/16 Signed Impressions: Service Date/Time: Tuesday, August 09, 2016 12:45 - CONCLUSION: Uncomplicated fluoroscopically guided lumbar puncture. Opening pressure 26 cm H2O. Nemesio Badillo Jr., MD Abdomen/Pelvis CT 08/08/161932 Signed Impressions: Service Date/Time: Monday, August 08, 2016 19:58 - CONCLUSION: 1. No obstruction or acute inflammatory changes are seen in the abdomen or pelvis. Normal appendix. 2. Complex cyst of the right kidney as described above. Further characterization with a contrast enhanced study is suggested when clinically feasible. 3. Small stones in a contracted gallbladder. No inflammatory changes. No ductal stone or ductal dilatation. 4. Areas of skin and subcutaneous induration, especially the right buttock and left inguinal regions. These are nonspecific. Also a potential pilonidal cyst. 5. Diffuse sclerosis of the visualized osseous structures typical of chronic renal disease. Possible small brown tumors of the right iliac bone. 6. There is a small fat containing hernia at the umbilicus. Casimiro Hair MD Head CT [id number]/08/[id number] Signed Impressions: Service Date/Time: Monday, August 08, 2016 19:00 - CONCLUSION: Normal examination for a patient of this age. No significant change has occurred. Vladimir Singer MD Chest CT 08/08/16 Signed Impressions: Service Date/Time: Monday, August 08, 2016 19:58 - CONCLUSION: 1. Trace failure in the proper clinical setting. 2. Small pericardial effusion, nonspecific. 3. Coronary artery calcification. 4. Upper limits of normal axillary lymph nodes. 5. Bilateral gynecomastia. Casimiro Hair MD Brain MRI 08/08/16 Signed Impressions: Service Date/Time: Monday, August 08, 2016 21:28 - CONCLUSION: 1. No acute infarct. Mild chronic white matter ischemic changes with slight progression since 2012. Vladimir Singer MD Physical Exam GENERAL: Awake and alert, NAD. SKIN: Cool and dry. No generalized rash HEENT: [place] conjunctiva. No scleral icterus. No injection or drainage. Nose without bleeding, purulent drainage or septal hematoma. Moist mucosa NECK: Trachea midline. Supple, nontender, no meningeal signs. CARDIOVASCULAR: HS audible. No murmur appreciated. RESPIRATORY: Clear to auscultation. Breath sounds equal bilaterally. GASTROINTESTINAL: Abdomen soft, non-tender, nondistended. MUSCULOSKELETAL: Extremities without clubbing, cyanosis, or edema. LUE AV fistula site , better, no redness or induration. Not tender. Bruit and thrill +. Left axilla area with min erythema, no tenderness, and minimal discharge. NEUROLOGICAL: Awake and alert. Psych: cooperative. IV line sites with no e/o infection. PORT site with no evidence of infection. Assessment & Plan Remarks Acute metabolic encephalopathy on admission , better Abnormal LP: given behavior issues would like to r/o neurosyphilis, CSF LEEANNE virus for PML and HIV screen Hidradenitis suppurativa with left axillary cellulitis/abscess. - better Left axillary and AV fistula site cellulitis. - better Complex cyst on kidney in CT non contrast. S/P port placement for IV access ESRD on HD Tues, Thurs, Sat per . ? missed HD session Mild to moderate mitral stenosis on ECHO. Recs: Continue Vanco IV in HD. Continue Levaquin oral Continue flagyl oral. Follow cultures Follow CSF LEEANNE virus, CSF VDRL Monitor progress Tracy Small MD Aug 15, 2016 12:44
--- NOTE | 2016-08-15 14:50 | HHI.GIFU ---
Subjective Remarks Pt reports that he had some nausea and dry heaves this morning after breakfast but no vomiting. He is currently eating his lunch and denies any nausea. Pt had a mushy BM today and a normal formed BM yesterday. (Shayy Soliman ) Objective Vitals I&O Vital Signs Date Time Temp Pulse Resp B/P Pulse Ox O2 Delivery O2 Flow Rate FiO2 08/15/16 12:27 99.5 87 18 139/62 92 08/15/16 08:23 18 08/15/16 08:00 99.2 93 18 105/51 93 08/15/16 04:00 98.7 86 18 132/60 92 08/15/16 00:00 98.8 95 20 181/85 97 08/14/16 20:00 98.3 96 24 150/71 92 08/14/16 17:39 97.5 89 17 134/78 100 08/14/16 16:00 98.3 91 24 140/63 97 08/14/16 16:00 88 08/14/16 16:00 88 I/O 08/14/16 08/14/16 08/14/16 08/15/16 08/15/16 08/15/16 07:00 15:00 23:00 07:00 15:00 23:00 Intake Total 110 ml 255 ml 240 ml 600 ml Output Total 50 ml 3050 ml 100 ml Balance 60 ml -2795 ml 240 ml 500 ml Intake Oral 100 ml 240 ml 240 ml 600 ml IV Total 10 ml 15 ml Output Urine Total 50 ml 50 ml 100 ml Hemodialysis 3000 ml # Voids 1 1 # Bowel Movements 0 1 0 Laboratory Laboratory Tests Test 08/15/16 05:55 White Blood Count 13.9 Red Blood Count 3.01 Hemoglobin 8.3 Hematocrit 26.3 Mean Corpuscular Volume 87.3 Mean Corpuscular Hemoglobin 27.5 Mean Corpuscular Hemoglobin 31.5 Concent Red Cell Distribution Width 20.1 Platelet Count 431 Mean Platelet Volume 6.7 Neutrophils (%) (Auto) 79.4 Lymphocytes (%) (Auto) 5.7 Monocytes (%) (Auto) 11.3 Eosinophils (%) (Auto) 2.4 Basophils (%) (Auto) 1.2 Neutrophils # (Auto) 11.0 Lymphocytes # (Auto) 0.8 Monocytes # (Auto) 1.6 Eosinophils # (Auto) 0.3 Basophils # (Auto) 0.2 CBC Comment DIFF FINAL Differential Comment Sodium Level 140 Potassium Level 5.0 Chloride Level 99 Carbon Dioxide Level 28.9 Anion Gap 12 Blood Urea Nitrogen 37 Creatinine 8.68 Estimat Glomerular Filtration 8 Rate Random Glucose 93 Calcium Level 9.7 Imaging Last Impressions Hepatobiliary Scan Nuclear Medicine 08/14/16 0000 Signed Impressions: Service Date/Time: Sunday, August 14, 2016 12:53 - CONCLUSION: No evidence of acute cholecystitis. No biliary tract obstruction. Lawrence Medel MD Head CT 08/13/16 0000 Signed Impressions: Service Date/Time: Saturday, August 13, 2016 13:42 - CONCLUSION: Negative for acute process. Bill Gotti MD FACR Gall Bladder Ultrasound 08/13/16 0000 Signed Impressions: Service Date/Time: Saturday, August 13, 2016 14:09 - CONCLUSION: Abnormal gallbladder. The patient is not tender over the gallbladder.. Bill Gotti MD FACR Upper Extremity CT 08/11/16 0000 Signed Impressions: Service Date/Time: Thursday, August 11, 2016 08:54 - CONCLUSION: Induration around an AV fistula without a focal abscess seen. Casimiro Zapata MD Head/Brain Mag Res Venography 08/11/16 0000 Signed Impressions: Service Date/Time: Thursday, August 11, 2016 12:59 - CONCLUSION: Dural sinus asymmetry which is likely developmental. No definite evidence of dural venous sinus thrombosis. Kiran Campbell MD Head Magnetic Resonance Angiography 08/11/16 0000 Signed Impressions: Service Date/Time: Thursday, August 11, 2016 12:59 - CONCLUSION: Normal examination. No evidence of vasculopathy. Kiran Campbell MD Chest X-Ray 08/10/16 0925 Signed Impressions: Service Date/Time: Wednesday, August 10, 2016 08:47 - CONCLUSION: 1. Mild cardiomegaly and diffuse increased interstitial markings likely representing edema. Casimiro Zapata MD Upper Extremity Ultrasound 08/10/16 0000 Signed Impressions: Service Date/Time: Wednesday, August 10, 2016 09:54 - CONCLUSION: 1. AV fistula present. This is patent. There is some dilatation of the proximal aspect of the fistula. 2. Dilatation of the axillary vein with some very mild peripheral mural thrombus seen. Casimiro Zapata MD Lumbar Puncture Fluoroscopy 08/09/16 0000 Signed Impressions: Service Date/Time: Tuesday, August 09, 2016 12:45 - CONCLUSION: Uncomplicated fluoroscopically guided lumbar puncture. Opening pressure 26 cm H2O. Nemesio Badillo Jr., MD Abdomen/Pelvis CT 08/08/16 1933 Signed Impressions: Service Date/Time: Monday, August 08, 2016 19:58 - CONCLUSION: 1. No obstruction or acute inflammatory changes are seen in the abdomen or pelvis. Normal appendix. 2. Complex cyst of the right kidney as described above. Further characterization with a contrast enhanced study is suggested when clinically feasible. 3. Small stones in a contracted gallbladder. No inflammatory changes. No ductal stone or ductal dilatation. 4. Areas of skin and subcutaneous induration, especially the right buttock and left inguinal regions. These are nonspecific. Also a potential pilonidal cyst. 5. Diffuse sclerosis of the visualized osseous structures typical of chronic renal disease. Possible small brown tumors of the right iliac bone. 6. There is a small fat containing hernia at the umbilicus. Casimiro Hair MD Chest CT 08/08/16 0000 Signed Impressions: Service Date/Time: Monday, August 08, 2016 19:58 - CONCLUSION: 1. Trace failure in the proper clinical setting. 2. Small pericardial effusion, nonspecific. 3. Coronary artery calcification. 4. Upper limits of normal axillary lymph nodes. 5. Bilateral gynecomastia. Casimiro Hair MD Brain MRI 08/08/16 0000 Signed Impressions: Service Date/Time: Monday, August 08, 2016 21:28 - CONCLUSION: 1. No acute infarct. Mild chronic white matter ischemic changes with slight progression since 2012. Vladimir Singer MD Physical Exam HEENT: Normocephalic; atraumatic; no jaundice. CHEST: CTA CARDIAC: RRR ABDOMEN: +BS, soft, nondistended, nontender EXTREMITIES: No clubbing, cyanosis, or edema. SKIN: Normal; no rash; no jaundice. RESIDENTIAL SUPPORT SPECIALIST: No focal deficits; alert and oriented times three. (Shayy Soliman) Assessment and Plan Plan ASSESSMENT: - Intractable nausea/vomiting, RUQ tenderness on exam. Last EGD (12/24/13)----> gastritis, pathology with reactive gastropathy with edema, immunohistochemistry for H. pylori is negative. Abdomen/Pelvis CT (08/08/16)----> 1. No obstruction or acute inflammatory changes are seen in the abdomen or pelvis. Normal appendix. 2. Complex cyst of the right kidney as described above. Further characterization with a contrast enhanced study is suggested when clinically feasible. 3. Small stones in a contracted gallbladder. No inflammatory changes. No ductal stone or ductal dilatation. 4. Areas of skin and subcutaneous hernia at the umbilicus. GB US (08/13/16)------> Abnormal gallbladder. The patient is not tender over the gallbladder. The patient tells me that he has had intermittent nausea/vomiting for a few years. Allergic to Reglan. On EES, no significant improvement with this. HIDA Scan (08/14/16) negative exam. Mild leukocytosis. LFT unremarkable. He seems to be doing better clinically and is tolerating his diet. He does continue to have some nausea/dry heaves occasionally, but states that overall, he is much improved. Phenergan prn. - Leukocytosis. Mild. WBC 13.9. ID following. - Anemia, likely chronic secondary to renal disease. H/H 8.3/26.3. - Encephalopathy with headache/left sided weakness. Neuro workup with MRI mild right sided cortical enhancement, LP with mildly elevated protein, and his EEG had generalized slowing. ID/Neurology following. - ESRD, HD Tuesdays, , Saturdays - DM, HTN, Neuropathy per primary PLAN: - IBAN- soft foods, chew food well, small bites, small frequent meals - Cont. PPI - Trial of Phenergan prn - Monitor labs - Supportive care - Pt seen and examined by Dr. Salazar and myself and this note is written on his behalf (Shayy Soliman) Physician Comments Patient seen and examined Agree with above Continue with current supportive care Monitor labs (David Salazar MD) Shayy Soliman Aug 15, 2016 14:50 David Salazar MD Aug 15, 2016 16:34
[2016-08-15] MEDS ORDERED: PROCHLORPERAZINE INJ 10 MG/2 ML VIAL IVS ONE (15:30)
--- NOTE | 2016-08-15 16:28 | HHI.PR ---
Subjective Remarks The patient said that his nausea was better and he was tolerating a diet. He did complain of a left-sided headache which has been bothering him for a while now. He says it comes and goes and is not sure what makes it comes and go. He also complains of a rash on his left arm. Objective Vitals Vital Signs Date Time Temp Pulse Resp B/P Pulse Ox O2 Delivery O2 Flow Rate FiO2 08/15/16 16:00 98.6 93 16 129/64 93 08/15/16 12:27 99.5 87 18 139/62 92 08/15/16 08:23 18 08/15/16 08:00 99.2 93 18 105/51 93 08/15/16 04:00 98.7 86 18 132/60 92 08/15/16 00:00 98.8 95 20 181/85 97 08/14/16 20:00 98.3 96 24 150/71 92 08/14/16 17:39 97.5 89 17 134/78 100 I/O 08/14/16 08/14/16 08/14/16 08/15/16 08/15/16 08/15/16 07:00 15:00 23:00 07:00 15:00 23:00 Intake Total 110 ml 255 ml 240 ml 600 ml Output Total 50 ml 3050 ml 100 ml Balance 60 ml -2795 ml 240 ml 500 ml Intake Oral 100 ml 240 ml 240 ml 600 ml IV Total 10 ml 15 ml Output Urine Total 50 ml 50 ml 100 ml Hemodialysis 3000 ml # Voids 1 1 # Bowel Movements 0 1 0 Result Diagram: 08/15/16 0555 08/15/16 0555 Imaging Last Impressions Hepatobiliary Scan Nuclear Medicine 08/14/16 0000 Signed Impressions: Service Date/Time: Sunday, August 14, 2016 12:53 - CONCLUSION: No evidence of acute cholecystitis. No biliary tract obstruction. Lawrence Medel MD Head CT 08/13/16 0000 Signed Impressions: Service Date/Time: Saturday, August 13, 2016 13:42 - CONCLUSION: Negative for acute process. Bill Gotti MD FACR Gall Bladder Ultrasound 08/13/16 0000 Signed Impressions: Service Date/Time: Saturday, August 13, 2016 14:09 - CONCLUSION: Abnormal gallbladder. The patient is not tender over the gallbladder.. Bill Gotti MD FACR Upper Extremity CT 08/11/16 0000 Signed Impressions: Service Date/Time: Thursday, August 11, 2016 08:54 - CONCLUSION: Induration around an AV fistula without a focal abscess seen. Casimiro Zapata MD Head/Brain Mag Res Venography 08/11/16 0000 Signed Impressions: Service Date/Time: Thursday, August 11, 2016 12:59 - CONCLUSION: Dural sinus asymmetry which is likely developmental. No definite evidence of dural venous sinus thrombosis. Kiran Campbell MD Head Magnetic Resonance Angiography 08/11/16 0000 Signed Impressions: Service Date/Time: Thursday, August 11, 2016 12:59 - CONCLUSION: Normal examination. No evidence of vasculopathy. Kiran Campbell MD Chest X-Ray 08/10/16 0925 Signed Impressions: Service Date/Time: Wednesday, August 10, 2016 08:47 - CONCLUSION: 1. Mild cardiomegaly and diffuse increased interstitial markings likely representing edema. Casimiro Zapata MD Upper Extremity Ultrasound 08/10/16 0000 Signed Impressions: Service Date/Time: Wednesday, August 10, 2016 09:54 - CONCLUSION: 1. AV fistula present. This is patent. There is some dilatation of the proximal aspect of the fistula. 2. Dilatation of the axillary vein with some very mild peripheral mural thrombus seen. Casimiro Zapata MD Lumbar Puncture Fluoroscopy 08/09/16 0000 Signed Impressions: Service Date/Time: Tuesday, August 09, 2016 12:45 - CONCLUSION: Uncomplicated fluoroscopically guided lumbar puncture. Opening pressure 26 cm H2O. Nemesio Badillo Jr., MD Abdomen/Pelvis CT 08/08/161932 Signed Impressions: Service Date/Time: Monday, August 08, 2016 19:58 - CONCLUSION: 1. No obstruction or acute inflammatory changes are seen in the abdomen or pelvis. Normal appendix. 2. Complex cyst of the right kidney as described above. Further characterization with a contrast enhanced study is suggested when clinically feasible. 3. Small stones in a contracted gallbladder. No inflammatory changes. No ductal stone or ductal dilatation. 4. Areas of skin and subcutaneous induration, especially the right buttock and left inguinal regions. These are nonspecific. Also a potential pilonidal cyst. 5. Diffuse sclerosis of the visualized osseous structures typical of chronic renal disease. Possible small brown tumors of the right iliac bone. 6. There is a small fat containing hernia at the umbilicus. Casimiro Hair MD Chest CT 08/08/16 0000 Signed Impressions: Service Date/Time: Monday, August 08, 2016 19:58 - CONCLUSION: 1. Trace failure in the proper clinical setting. 2. Small pericardial effusion, nonspecific. 3. Coronary artery calcification. 4. Upper limits of normal axillary lymph nodes. 5. Bilateral gynecomastia. Casimiro Hair MD Brain MRI 08/08/16 0000 Signed Impressions: Service Date/Time: Monday, August 08, 2016 21:28 - CONCLUSION: 1. No acute infarct. Mild chronic white matter ischemic changes with slight progression since 2012. Vladimir Singer MD Objective Remarks GENERAL: Sitting up, comfortable.. SKIN: Warm and dry. HEAD: Atraumatic. Normocephalic. EYES: Pupils equal and round. No scleral icterus. No injection or drainage. ENT: No nasal bleeding or discharge. Mucous membranes pink and moist. NECK: Trachea midline. No JVD. CARDIOVASCULAR: Regular rate and rhythm. No murmur appreciated. RESPIRATORY: No accessory muscle use. Clear to auscultation. Breath sounds equal bilaterally. GASTROINTESTINAL: Abdomen soft, nondistended, no guarding. No to palpation. No CVA tenderness. MUSCULOSKELETAL: No obvious deformities. No clubbing. No cyanosis. No edema. Left AVF with palpable thrill. NEUROLOGICAL: Awake and alert. Normal speech, very mild left facial droop, LUE 4 +/5, LLE 4+/5. All other extremities CRUZITO 5/5. Sensation grossly intact. PSYCH: Mood and affect appropriate. Procedures LP Medications and IVs Current Medications Medications (Trade) Dose Ordered Sig/Bulmaro Route Start Time Stop Time Status Last Admin (Cardene Inj/NS 250 ml Inj) 260 ml @ 0 mls/hr TITRATE IV 08/08/16 19:45 08/10/16 16:46 (NS Flush) 2 ml BID IV FLUSH 08/09/16 09:00 08/15/16 08:04 (Tylenol) 650 mg Q6H PRN PO 08/08/16 21:30 08/11/16 08:31 (Zofran Inj) 4 mg Q6H PRN IV 08/08/16 21:30 08/15/16 08:03 (Dulcolax Ec) 10 mg DAILY PRN PO 08/08/16 21:30 (Senokot) 17.2 mg Q12H PRN PO 08/08/16 21:30 Miscellaneous Information 1 Q361D XX 08/08/16 21:30 (Chlorhexidine 2% Cloth) Taper DAILY@04 TOP 08/09/16 04:00 08/05/17 03:59 08/14/16 05:20 (Chlorhexidine 2% Cloth) 3 pack UNSCH PRN TOP 08/08/16 21:30 (Trandate Inj) 20 mg Q2HR PRN IV PUSH 08/08/16 21:30 08/13/16 21:33 (NovoLOG SUPPLEMENTAL SCALE) 1 Q6HR SQ 08/09/16 00:00 (D50w (Vial) Inj) 25 ml UNSCH PRN IV 08/08/16 22:00 08/09/16 00:23 (Glucagon Inj) 1 mg UNSCH PRN IM/SQ 08/08/16 22:00 (Protonix) 40 mg DAILY PO 08/09/16 10:00 08/15/16 08:00 (Proscar) 5 mg DAILY PO 08/09/16 16:00 08/15/16 08:04 (Apresoline) 50 mg TID PO 08/09/16 18:00 08/15/16 12:43 (Coreg) 12.5 mg BID PO 08/09/16 16:00 08/15/16 07:59 (Cozaar) 100 mg HS PO 08/09/16 16:00 08/14/16 22:50 (Apresoline Inj) 10 mg Q30M PRN IV PUSH 08/09/16 16:00 08/12/16 13:21 (Dilaudid Pf Inj) 0.5 mg Q4H PRN IV PUSH 08/09/16 18:15 08/15/16 12:43 (Ativan) 0.5 mg Q6H PRN PO 08/09/16 23:00 08/15/16 03:06 (Renvela) 1,600 mg TIDAC PO 08/10/16 08:00 08/15/16 12:42 Vitamin B Complex/ Vit C/Folic Acid 1 cap 1 cap DAILY PO 08/10/16 09:00 08/15/16 08:04 (NS 1000 ml Inj) 1,000 ml @ 0 mls/hr Q0M PRN IV 08/09/16 22:56 08/14/16 08:51 Heparin Sodium (Porcine) 8000 units 8,000 units UNSCH PRN IVF 08/09/16 23:00 Sodium Chloride 1,000 ml @ 200 mls/hr Q5H PRN IV 08/09/16 22:56 (NS 1000 ml Inj) 1,000 ml @ 0 mls/hr Q0M PRN IV 08/09/16 22:56 (Mannitol Inj) 12.5 gm UNSCH PRN IV 08/09/16 23:00 (Albumin 25% Inj) 25 gm UNSCH PRN IV 08/09/16 23:00 (NS Flush) 5 ml UNSCH PRN IVF 08/09/16 23:00 08/10/16 18:38 (Heparin Inj) UNSCH PRN .XX 08/09/16 23:00 (Gentamicin (Dialysis) Inj) 20 mg UNSCH PRN IV 08/09/16 23:00 (Zofran Inj) 4 mg UNSCH PRN IV 08/09/16 23:00 (Tylenol) 650 mg UNSCH PRN PO 08/09/16 23:00 08/13/16 05:11 (Benadryl) 25 mg UNSCH PRN PO 08/09/16 23:00 (Nitrostat Sl) 0.4 mg UNSCH PRN SL 08/09/16 23:00 (Catapres) 0.1 mg UNSCH PRN PO 08/09/16 23:00 08/15/16 01:24 (Epogen Inj) 10,000 units UNSCH PRN IV 08/09/16 23:00 08/14/16 08:51 (Gelfoam 12 Mm/7 Mm Top) 1 foam UNSCH PRN TOP 08/09/16 23:00 08/14/16 08:51 (Procardia) 20 mg Q8HR PO 08/10/16 16:42 08/15/16 12:43 (Levaquin) 500 mg Q48H PO 08/12/16 14:00 08/14/16 15:10 (Flagyl) 500 mg Q8HR PO 08/11/16 14:00 08/15/16 12:43 (Remeron) 15 mg HS PO 08/11/16 21:00 08/14/16 22:51 (Compazine Inj) 5 mg Q8H PRN IVS 08/13/16 13:00 08/14/16 05:23 (Fioricet 325-50-40) 1 tab Q6H PRN PO 08/13/16 13:15 08/14/16 05:21 (Phenergan) 12.5 mg Q6H PRN PO 08/14/16 16:15 (Lotrimin 1% Cream) 1 applic Q12HR TOPICAL 08/15/16 15:30 A/P Assessment and Plan Encephalopathy/ Headache With left sided weakness. The pt was a stroke alert. Appreciate ID and neurology input. MRI with slight right-sided cortical enhancement. LP with slightly elevated protein. EEG with generalized slowing. Improving. Psych consult appreciated. Repeat head CT 08/13 without acute process. Headache persists. Left sided, likely a migraine. - neuro checks. - Continue blood pressure control. Improved. - continue Remeron per psych. - Ativan for anxiety. - antibiotics per ID. On vanco, Levaquin and Flagyl. - PT/ OT. - Prochlorperazine and Fioricet as needed. Respiratory failure The pt had apnea events. Also some evidence of pulmonary edema. On room air . - volume management with dialysis. - oxygen and nebs as needed. Walk test requested. - BiPAP at night for likely DEANNA. Hypertensive emergency With elevated troponin. Appreciate cardiology consult. Off of nicardipine drip. Blood pressure improved. - continue losartan, carvedilol, hydralazine and Procardia. - ASA. - hydralazine and labetalol prn. Abdominal pain Located in the right upper quadrant. Recent CT abdomen w/o contrast showed complex right renal cyst among other findings. LFTs unremarkable. Now with nausea and vomiting. RUQ US with abnormal gallbladder. GI consult appreciated. HIDA scan unremarkable. Improved 08/14. - pain control and antiemetics as needed. - follow-up with GI. Continue bethanechol, promethazine as needed. End-stage renal disease On hemodialysis. - dialysis per nephrology. Diabetes mellitus A1c 6.2%. Glucose well controlled 08/15. - SSI for glycemic control. Prophylaxis: PPI/SCDs/subcutaneous heparin. Discharge Planning Possibly DC with home health care in the next few days. Benja Lux DO Aug 15, 2016 16:28
[2016-08-15] MEDS: CLOTRIMAZOLE 1% CREAM 15 GM TOPICAL SCH ×2 (16:44→21:00)
[2016-08-15] MEDS: MIRTAZAPINE 15 MG TAB PO SCH (21:58)
[2016-08-15] MEDS: LOSARTAN 50 MG TAB PO SCH (21:59)
[2016-08-16] MEDS: HYDROmorphone HCL PF 1 MG/ML VIAL IV PUSH PRN ×5 (02:21→21:46)
[2016-08-16] MEDS: CHLORHEXIDINE GLUCONATE 2 % 1 PACK (2 CLOTHS) TOP SCH (04:00)
[2016-08-16 04:49] VITALS: BP 135/63; PULSE 95; RESP 19; TEMP 100.2; O2SAT 91
[2016-08-16] MEDS: metroNIDAZOLE 500 MG TAB PO SCH ×3 (05:29→21:12)
[2016-08-16] MEDS: INSULIN ASPART SUPPLEMENTAL SCALE SQ SCH ×4 (05:30→18:00)
[2016-08-16] MEDS: NIFEdipine 20 MG CAP PO SCH ×3 (05:30→21:12)
[2016-08-16] MEDS: ONDANSETRON HCL 4 MG/2 ML VIAL IV PRN (05:34)
[2016-08-16] MEDS: LORazepam 0.5 MG TAB PO PRN (05:34)
[2016-08-16 07:20] LABS: MEAN CELL VOLUME 87.2 FL (80.0-100.0); MEAN CORPUSCULAR HEMOGLOBIN 27.2 PG (27.0-34.0); MEAN CORPUSCULAR HGB CONC 31.2 % (32.0-36.0); PLATELET COUNT 454 TH/MM3 (150-450); RED BLOOD COUNT 2.98 MIL/MM3 (4.50-5.90); RED CELL DISTRIBUTION WIDTH 19.9 % (11.6-17.2); REVIEW FLAG FINAL; WHITE BLOOD COUNT 12.1 TH/MM3 (4.0-11.0)
[2016-08-16 07:31] LABS: BICARBONATE 28.2 MEQ/L (21.0-32.0); POTASSIUM 4.9 MEQ/L (3.5-5.1)
[2016-08-16 08:48] VITALS: BP 143/66; PULSE 94; RESP 20; TEMP 99.3; O2SAT 99
[2016-08-16] MEDS: hydrALAZINE HCL 50 MG TAB PO SCH ×3 (08:48→17:45)
[2016-08-16] MEDS: PANTOPRAZOLE SOD 40 MG DELAYED RELEASE TAB PO SCH (08:48)
[2016-08-16] MEDS: VITAMIN B CMPLX/VITC/FOLIC AC CAP PO SCH (08:48)
[2016-08-16] MEDS: SEVELAMER CARBONATE 800 MG TAB PO SCH ×3 (08:48→17:44)
[2016-08-16] MEDS: CARVEDILOL 12.5 MG TAB PO SCH ×2 (08:48→21:11)
[2016-08-16] MEDS: FINASTERIDE 5 MG TAB PO SCH (08:49)
[2016-08-16] MEDS: SODIUM CHLORIDE 0.9% FLUSH 5 ML FLUSH IV FLUSH SCH ×2 (08:49→21:11)
[2016-08-16] MEDS: CLOTRIMAZOLE 1% CREAM 15 GM TOPICAL SCH ×2 (08:49→22:20)
--- NOTE | 2016-08-16 09:11 | RADRPT ---
EXAM DATE/TIME: 08/16/2016 08:46 [facility] COMPARISON: CHEST SINGLE AP, August 10, 2016, 8:47. INDICATIONS : Patient states shortness of breath. MEDICAL HISTORY : None. SURGICAL HISTORY : Port placement. ENCOUNTER: Subsequent ACUITY: 1 week PAIN SCORE: 4/10 LOCATION: Bilateral chest FINDINGS: A single view of the chest demonstrates the lungs to be symmetrically aerated without evidence of mas s, infiltrate or effusion. Prominent interstitial markings identified previously have essentially re solved. The cardiomediastinal contours are unremarkable. Osseous structures are intact with degenera tive spurring of the dorsal spine. Right subclavian Ykhjrg-g-Cdch catheter with the tip projecting ov er the central venous system. CONCLUSION: 1. Right subclavian Eeqgbe-b-Ywgx catheter with the tip projecting over the central venous system. 2. No acute cardiopulmonary process. Prominent interstitial markings identified previously have resol sandi. No acute infiltrate or effusion. Prieto Ramírez MD on August 16, 2016 at 9:07 Board Certified Radiologist. This report was verified electronically.
--- NOTE | 2016-08-16 11:33 | RADRPT ---
EXAM DATE/TIME: 08/16/2016 10:07 [facility] COMPARISON: LUNG VENTILATION & PERFUSION SCAN, July 05, 2011, 14:46. INDICATIONS : Shortness of breath for one day. DOSE: 8.7 mCi Tc99m MAA IV 0.80 mCi Tc99m DTPA aerosol MEDICAL HISTORY : Hypertension. Gastroparesis. Diabetes mellitus type 2. SURGICAL HISTORY : AV fistula. ENCOUNTER: Initial ACUITY: 1 day PAIN SCALE: 0/10 LOCATION: Bilateral chest TECHNIQUE: Following five minutes of tidal breathing of DTPA aerosol, planar images of the lungs were performed in eight projections. The patient was then injected with MAA, and eight-view perfusion scan was perf ormed. FINDINGS: There is a homogeneous pattern of aerosol delivery to the periphery of both lungs. No focal ventilat ory defects are seen. The perfusion lung scan demonstrates a homogenous pattern of uptake in both lungs. No segmental or s ubsegmental defects are seen. CONCLUSION: No acute disease. Chico Zapien MD on August 16, 2016 at 11:31 Board Certified Radiologist. This report was verified electronically.
[2016-08-16 11:41] VITALS: BP 128/57; PULSE 85; RESP 20; TEMP 98.4; O2SAT 96
--- NOTE | 2016-08-16 11:45 | HHI.PR ---
Subjective Remarks The patient was resting comfortably in bed. He said he had a busy morning. He said he was nauseous earlier but that has resolved. He said his headache is much improved. Discussed with nursing. Objective Vitals Vital Signs Date Time Temp Pulse Resp B/P Pulse Ox O2 Delivery O2 Flow Rate FiO2 08/16/16 08:48 99.3 94 20 143/66 99 08/16/16 04:49 100.2 95 19 135/63 91 08/15/16 23:55 99.4 105 20 147/70 93 08/15/16 20:37 99.9 104 18 184/84 96 08/15/16 16:00 98.6 93 16 129/64 93 08/15/16 12:27 99.5 87 18 139/62 92 I/O 08/15/16 08/15/16 08/15/16 08/16/16 08/16/16 08/16/16 07:00 15:00 23:00 07:00 15:00 23:00 Intake Total 600 ml 360 ml Output Total 100 ml 200 ml Balance 500 ml 360 ml -200 ml Intake Oral 600 ml 360 ml Output Urine Total 100 ml 200 ml # Voids 1 1 # Bowel Movements 0 0 Result Diagram: 08/16/16 0620 08/16/16 0620 Imaging Last Impressions Chest X-Ray 08/16/16 0000 Signed Impressions: Service Date/Time: Tuesday, August 16, 2016 08:46 - CONCLUSION: 1. Right subclavian Kkfwij-y-Qpmp catheter with the tip projecting over the central venous system. 2. No acute cardiopulmonary process. Prominent interstitial markings identified previously have resolved. No acute infiltrate or effusion. Prieto Ramírez MD Hepatobiliary Scan Nuclear Medicine 08/14/16 0000 Signed Impressions: Service Date/Time: Sunday, August 14, 2016 12:53 - CONCLUSION: No evidence of acute cholecystitis. No biliary tract obstruction. Lawrence Medel MD Head CT 08/13/16 0000 Signed Impressions: Service Date/Time: Saturday, August 13, 2016 13:42 - CONCLUSION: Negative for acute process. Bill Gotti MD FACR Gall Bladder Ultrasound 08/13/16 0000 Signed Impressions: Service Date/Time: Saturday, August 13, 2016 14:09 - CONCLUSION: Abnormal gallbladder. The patient is not tender over the gallbladder.. Bill Gotti MD FACR Upper Extremity CT 08/11/16 Signed Impressions: Service Date/Time: Thursday, August 11, 2016 08:54 - CONCLUSION: Induration around an AV fistula without a focal abscess seen. Casimiro Zapata MD Head/Brain Mag Res Venography 08/11/16 Signed Impressions: Service Date/Time: Thursday, August 11, 2016 12:59 - CONCLUSION: Dural sinus asymmetry which is likely developmental. No definite evidence of dural venous sinus thrombosis. Kiran Campbell MD Head Magnetic Resonance Angiography 08/11/16 Signed Impressions: Service Date/Time: Thursday, August 11, 2016 12:59 - CONCLUSION: Normal examination. No evidence of vasculopathy. Kiran Campbell MD Upper Extremity Ultrasound 08/10/16 Signed Impressions: Service Date/Time: Wednesday, August 10, 2016 09:54 - CONCLUSION: 1. AV fistula present. This is patent. There is some dilatation of the proximal aspect of the fistula. 2. Dilatation of the axillary vein with some very mild peripheral mural thrombus seen. Casimiro Zapata MD Lumbar Puncture Fluoroscopy 08/09/16 Signed Impressions: Service Date/Time: Tuesday, August 09, 2016 12:45 - CONCLUSION: Uncomplicated fluoroscopically guided lumbar puncture. Opening pressure 26 cm H2O. Nemesio Badillo Jr., MD Abdomen/Pelvis CT 08/08/161932 Signed Impressions: Service Date/Time: Monday, August 08, 2016 19:58 - CONCLUSION: 1. No obstruction or acute inflammatory changes are seen in the abdomen or pelvis. Normal appendix. 2. Complex cyst of the right kidney as described above. Further characterization with a contrast enhanced study is suggested when clinically feasible. 3. Small stones in a contracted gallbladder. No inflammatory changes. No ductal stone or ductal dilatation. 4. Areas of skin and subcutaneous induration, especially the right buttock and left inguinal regions. These are nonspecific. Also a potential pilonidal cyst. 5. Diffuse sclerosis of the visualized osseous structures typical of chronic renal disease. Possible small brown tumors of the right iliac bone. 6. There is a small fat containing hernia at the umbilicus. Casimiro Hair MD Chest CT 08/08/16 Signed Impressions: Service Date/Time: Monday, August 08, 2016 19:58 - CONCLUSION: 1. Trace failure in the proper clinical setting. 2. Small pericardial effusion, nonspecific. 3. Coronary artery calcification. 4. Upper limits of normal axillary lymph nodes. 5. Bilateral gynecomastia. Casimiro Hair MD Brain MRI 08/08/16 0000 Signed Impressions: Service Date/Time: Monday, August 08, 2016 21:28 - CONCLUSION: 1. No acute infarct. Mild chronic white matter ischemic changes with slight progression since 2012. Vladimir Singer MD Objective Remarks GENERAL: Sitting up, comfortable.. SKIN: Warm and dry. HEAD: Atraumatic. Normocephalic. EYES: Pupils equal and round. No scleral icterus. No injection or drainage. ENT: No nasal bleeding or discharge. Mucous membranes pink and moist. NECK: Trachea midline. No JVD. CARDIOVASCULAR: Regular rate and rhythm. No murmur appreciated. RESPIRATORY: No accessory muscle use. Clear to auscultation. Breath sounds equal bilaterally. GASTROINTESTINAL: Abdomen soft, nondistended, no guarding. No to palpation. No CVA tenderness. MUSCULOSKELETAL: No obvious deformities. No clubbing. No cyanosis. No edema. Left AVF with palpable thrill. NEUROLOGICAL: Awake and alert. Normal speech, very mild left facial droop, LUE 4 +/5, LLE 4+/5. All other extremities CRUZITO 5/5. Sensation grossly intact. PSYCH: Mood and affect appropriate. Procedures LP Medications and IVs Current Medications Medications (Trade) Dose Ordered Sig/Bulmaro Route Start Time Stop Time Status Last Admin (Cardene Inj/NS 250 ml Inj) 260 ml @ 0 mls/hr TITRATE IV 08/08/16 19:45 08/10/16 16:46 (NS Flush) 2 ml BID IV FLUSH 08/09/16 09:00 08/16/16 08:49 (Tylenol) 650 mg Q6H PRN PO 08/08/16 21:30 08/11/16 08:31 (Zofran Inj) 4 mg Q6H PRN IV 08/08/16 21:30 08/16/16 05:34 (Dulcolax Ec) 10 mg DAILY PRN PO 08/08/16 21:30 (Senokot) 17.2 mg Q12H PRN PO 08/08/16 21:30 Miscellaneous Information 1 Q361D XX 08/08/16 21:30 (Chlorhexidine 2% Cloth) Taper DAILY@04 TOP 08/09/16 04:00 08/05/17 03:59 08/14/16 05:20 (Chlorhexidine 2% Cloth) 3 pack UNSCH PRN TOP 08/08/16 21:30 (Trandate Inj) 20 mg Q2HR PRN IV PUSH 08/08/16 21:30 08/13/16 21:33 (NovoLOG SUPPLEMENTAL SCALE) 1 Q6HR SQ 08/09/16 00:00 (D50w (Vial) Inj) 25 ml UNSCH PRN IV 08/08/16 22:00 08/09/16 00:23 (Glucagon Inj) 1 mg UNSCH PRN IM/SQ 08/08/16 22:00 (Protonix) 40 mg DAILY PO 08/09/16 10:00 08/16/16 08:48 (Proscar) 5 mg DAILY PO 08/09/16 16:00 08/16/16 08:49 (Apresoline) 50 mg TID PO 08/09/16 18:00 08/16/16 08:48 (Coreg) 12.5 mg BID PO 08/09/16 16:00 08/16/16 08:48 (Cozaar) 100 mg HS PO 08/09/16 16:00 08/15/16 21:59 (Apresoline Inj) 10 mg Q30M PRN IV PUSH 08/09/16 16:00 08/12/16 13:21 (Dilaudid Pf Inj) 0.5 mg Q4H PRN IV PUSH 08/09/16 18:15 08/16/16 08:54 (Ativan) 0.5 mg Q6H PRN PO 08/09/16 23:00 08/16/16 05:34 (Renvela) 1,600 mg TIDAC PO 08/10/16 08:00 08/16/16 08:48 Vitamin B Complex/ Vit C/Folic Acid 1 cap 1 cap DAILY PO 08/10/16 09:00 08/16/16 08:48 (NS 1000 ml Inj) 1,000 ml @ 0 mls/hr Q0M PRN IV 08/09/16 22:56 08/14/16 08:51 Heparin Sodium (Porcine) 8000 units 8,000 units UNSCH PRN IVF 08/09/16 23:00 Sodium Chloride 1,000 ml @ 200 mls/hr Q5H PRN IV 08/09/16 22:56 (NS 1000 ml Inj) 1,000 ml @ 0 mls/hr Q0M PRN IV 08/09/16 22:56 (Mannitol Inj) 12.5 gm UNSCH PRN IV 08/09/16 23:00 (Albumin 25% Inj) 25 gm UNSCH PRN IV 08/09/16 23:00 (NS Flush) 5 ml UNSCH PRN IVF 08/09/16 23:00 08/10/16 18:38 (Heparin Inj) UNSCH PRN .XX 08/09/16 23:00 (Gentamicin (Dialysis) Inj) 20 mg UNSCH PRN IV 08/09/16 23:00 (Zofran Inj) 4 mg UNSCH PRN IV 08/09/16 23:00 (Tylenol) 650 mg UNSCH PRN PO 08/09/16 23:00 08/13/16 05:11 (Benadryl) 25 mg UNSCH PRN PO 08/09/16 23:00 (Nitrostat Sl) 0.4 mg UNSCH PRN SL 08/09/16 23:00 (Catapres) 0.1 mg UNSCH PRN PO 08/09/16 23:00 08/15/16 01:24 (Epogen Inj) 10,000 units UNSCH PRN IV 08/09/16 23:00 08/14/16 08:51 (Gelfoam 12 Mm/7 Mm Top) 1 foam UNSCH PRN TOP 08/09/16 23:00 08/14/16 08:51 (Procardia) 20 mg Q8HR PO 08/10/16 16:42 08/16/16 05:30 (Levaquin) 500 mg Q48H PO 08/12/16 14:00 08/14/16 15:10 (Flagyl) 500 mg Q8HR PO 08/11/16 14:00 08/16/16 05:29 (Remeron) 15 mg HS PO 08/11/16 21:00 08/15/16 21:58 (Compazine Inj) 5 mg Q8H PRN IVS 08/13/16 13:00 08/14/16 05:23 (Fioricet 325-50-40) 1 tab Q6H PRN PO 08/13/16 13:15 08/14/16 05:21 (Phenergan) 12.5 mg Q6H PRN PO 08/14/16 16:15 (Lotrimin 1% Cream) 1 applic Q12HR TOPICAL 08/15/16 15:30 08/16/16 08:49 A/P Assessment and Plan Encephalopathy/ Headache With left sided weakness. The pt was a stroke alert. Appreciate ID and neurology input. MRI with slight right-sided cortical enhancement. LP with slightly elevated protein. EEG with generalized slowing. Improving. Psych consult appreciated. Repeat head CT 08/13 without acute process. Headache persists. Left sided, likely a migraine. Improved with prochlorperazine. - neuro checks. - Continue blood pressure control. Improved. - continue Remeron per psych. - Ativan for anxiety. - antibiotics per ID. On vanco, Levaquin and Flagyl. - PT/ OT. - Prochlorperazine and Fioricet as needed. Respiratory failure The pt had apnea events. Also some evidence of pulmonary edema. On room air but desaturated on walk test. V/Q scan negative for acute disease. CXR unremarkable. - volume management with dialysis. - oxygen as needed. - BiPAP at night for likely DEANNA. - standing nebs. - pulmonology consult requested. Hypertensive emergency With elevated troponin. Appreciate cardiology consult. Off of nicardipine drip. Blood pressure improved. - continue losartan, carvedilol, hydralazine and Procardia. - ASA. - hydralazine and labetalol prn. Abdominal pain Located in the right upper quadrant. Recent CT abdomen w/o contrast showed complex right renal cyst among other findings. LFTs unremarkable. Now with nausea and vomiting. RUQ US with abnormal gallbladder. GI consult appreciated. HIDA scan unremarkable. Improved 08/16. - pain control and antiemetics as needed. - follow-up with GI. Continue bethanechol, promethazine as needed. End-stage renal disease On hemodialysis. - dialysis per nephrology. Diabetes mellitus A1c 6.2%. Glucose well controlled 08/15. - SSI for glycemic control. Prophylaxis: PPI/SCDs/subcutaneous heparin. Discharge Planning Awaiting pulmonary eval. Benja Lux DO Aug 16, 2016 11:45
[2016-08-16] MEDS: LEVOFLOXACIN 500 MG TAB PO SCH (13:52)
[2016-08-16] MEDS: RESP: ALBUTEROL 2.5 MG/IPRATROPIUM 0.5 MG NEB (SCH) NEB ×2 (14:02→19:30)
[2016-08-16 14:05] VITALS: O2SAT 99
--- NOTE | 2016-08-16 14:45 | HHI.GIFU ---
Subjective Remarks Resting in bed. Had some nausea earlier today, but overall much improved. Tolerating diet. Abdominal pain improved. Objective Vitals I&O Vital Signs Date Time Temp Pulse Resp B/P Pulse Ox O2 Delivery O2 Flow Rate FiO2 08/16/16 14:05 99 Nasal Cannula 21 08/16/16 11:41 98.4 85 20 128/57 96 08/16/16 08:48 99.3 94 20 143/66 99 08/16/16 04:49 100.2 95 19 135/63 91 08/15/16 23:55 99.4 105 20 147/70 93 08/15/16 20:37 99.9 104 18 184/84 96 08/15/16 16:00 98.6 93 16 129/64 93 I/O 08/15/16 08/15/16 08/15/16 08/16/16 08/16/16 08/16/16 07:00 15:00 23:00 07:00 15:00 23:00 Intake Total 600 ml 360 ml Output Total 100 ml 200 ml Balance 500 ml 360 ml -200 ml Intake Oral 600 ml 360 ml Output Urine Total 100 ml 200 ml # Voids 1 1 2 # Bowel Movements 0 0 1 Laboratory Laboratory Tests Test 08/16/16 06:20 White Blood Count 12.1 Red Blood Count 2.98 Hemoglobin 8.1 Hematocrit 26.0 Mean Corpuscular Volume 87.2 Mean Corpuscular Hemoglobin 27.2 Mean Corpuscular Hemoglobin 31.2 Concent Red Cell Distribution Width 19.9 Platelet Count 454 Mean Platelet Volume 7.3 Sodium Level 142 Potassium Level 4.9 Chloride Level 102 Carbon Dioxide Level 28.2 Anion Gap 12 Blood Urea Nitrogen 48 Creatinine 10.33 Estimat Glomerular Filtration 7 Rate Random Glucose 116 Calcium Level 9.6 Imaging Last Impressions Lung Scan-VQ Nuclear Medicine 08/16/16 0000 Signed Impressions: Service Date/Time: Tuesday, August 16, 2016 10:07 - CONCLUSION: No acute disease. Chico Zapien MD Chest X-Ray 08/16/16 0000 Signed Impressions: Service Date/Time: Tuesday, August 16, 2016 08:46 - CONCLUSION: 1. Right subclavian [id number] catheter with the tip projecting over the central venous system. 2. No acute cardiopulmonary process. Prominent interstitial markings identified previously have resolved. No acute infiltrate or effusion. Prieto Ramírez MD Hepatobiliary Scan Nuclear Medicine 08/14/16 0000 Signed Impressions: Service Date/Time: Sunday, August 14, 2016 12:53 - CONCLUSION: No evidence of acute cholecystitis. No biliary tract obstruction. Lawrence Medel MD Head CT 08/13/16 0000 Signed Impressions: Service Date/Time: Saturday, August 13, 2016 13:42 - CONCLUSION: Negative for acute process. Bill Gotti MD FACR Gall Bladder Ultrasound 08/13/16 0000 Signed Impressions: Service Date/Time: Saturday, August 13, 2016 14:09 - CONCLUSION: Abnormal gallbladder. The patient is not tender over the gallbladder.. Bill Gotti MD FACR Upper Extremity CT 08/11/16 0000 Signed Impressions: Service Date/Time: Thursday, August 11, 2016 08:54 - CONCLUSION: Induration around an AV fistula without a focal abscess seen. Casimiro Zapata MD Head/Brain Mag Res Venography 08/11/16 0000 Signed Impressions: Service Date/Time: Thursday, August 11, 2016 12:59 - CONCLUSION: Dural sinus asymmetry which is likely developmental. No definite evidence of dural venous sinus thrombosis. Kiran Campbell MD Head Magnetic Resonance Angiography 08/11/16 0000 Signed Impressions: Service Date/Time: Thursday, August 11, 2016 12:59 - CONCLUSION: Normal examination. No evidence of vasculopathy. Kiran Campbell MD Upper Extremity Ultrasound 08/10/16 0000 Signed Impressions: Service Date/Time: Wednesday, August 10, 2016 09:54 - CONCLUSION: 1. AV fistula present. This is patent. There is some dilatation of the proximal aspect of the fistula. 2. Dilatation of the axillary vein with some very mild peripheral mural thrombus seen. Casimiro Zapata MD Lumbar Puncture Fluoroscopy 08/09/16 0000 Signed Impressions: Service Date/Time: Tuesday, August 09, 2016 12:45 - CONCLUSION: Uncomplicated fluoroscopically guided lumbar puncture. Opening pressure 26 cm H2O. Nemesio Badillo Jr., MD Abdomen/Pelvis CT 08/08/161932 Signed Impressions: Service Date/Time: Monday, August 08, 2016 19:58 - CONCLUSION: 1. No obstruction or acute inflammatory changes are seen in the abdomen or pelvis. Normal appendix. 2. Complex cyst of the right kidney as described above. Further characterization with a contrast enhanced study is suggested when clinically feasible. 3. Small stones in a contracted gallbladder. No inflammatory changes. No ductal stone or ductal dilatation. 4. Areas of skin and subcutaneous induration, especially the right buttock and left inguinal regions. These are nonspecific. Also a potential pilonidal cyst. 5. Diffuse sclerosis of the visualized osseous structures typical of chronic renal disease. Possible small brown tumors of the right iliac bone. 6. There is a small fat containing hernia at the umbilicus. Casimiro Hair MD Chest CT 08/08/16 0000 Signed Impressions: Service Date/Time: Monday, August 08, 2016 19:58 - CONCLUSION: 1. Trace failure in the proper clinical setting. 2. Small pericardial effusion, nonspecific. 3. Coronary artery calcification. 4. Upper limits of normal axillary lymph nodes. 5. Bilateral gynecomastia. Casimiro Hair MD Brain MRI 08/08/16 0000 Signed Impressions: Service Date/Time: Monday, August 08, 2016 21:28 - CONCLUSION: 1. No acute infarct. Mild chronic white matter ischemic changes with slight progression since 2012. Vladimir Singer MD Physical Exam HEENT: Normocephalic; atraumatic; no jaundice. CHEST: CTA CARDIAC: RRR ABDOMEN: +BS, soft, nondistended, nontender EXTREMITIES: No clubbing, cyanosis, or edema. SKIN: Normal; no rash; no jaundice. 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 Assessment and Plan Plan ASSESSMENT: - Intractable nausea/vomiting, RUQ tenderness on exam. Last EGD (12/24/13)----> gastritis, pathology with reactive gastropathy with edema, immunohistochemistry for H. pylori is negative. Abdomen/Pelvis CT (08/08/16)----> 1. No obstruction or acute inflammatory changes are seen in the abdomen or pelvis. Normal appendix. 2. Complex cyst of the right kidney as described above. Further characterization with a contrast enhanced study is suggested when clinically feasible. 3. Small stones in a contracted gallbladder. No inflammatory changes. No ductal stone or ductal dilatation. 4. Areas of skin and subcutaneous hernia at the umbilicus. GB US (08/13/16)------> Abnormal gallbladder. The patient is not tender over the gallbladder. The patient tells me that he has had intermittent nausea/vomiting for a few years. Allergic to Reglan. HIDA Scan (08/14/16) negative exam. Mild leukocytosis. LFT unremarkable. IMPROVED. Phenergan prn. Tolerating diet. Symptoms controlled/improving. - Leukocytosis. Mild. WBC 12.1. 8.1/26.0. ID following. - Anemia, likely chronic secondary to renal disease. H/H 8.1/26.0. - Encephalopathy with headache/left sided weakness. Neuro workup with MRI mild right sided cortical enhancement, LP with mildly elevated protein, and his EEG had generalized slowing. ID/Neurology following. - ESRD, HD Tuesdays, , Saturdays - DM, HTN, Neuropathy per primary PLAN: - IBAN- soft foods, chew food well, small bites, small frequent meals - Cont. PPI - Cont. Phenergan prn - Monitor labs - Supportive care - Pt seen and examined by Dr. Santana and myself and this note is written on her behalf Tawnya Low Aug 16, 2016 14:45
[2016-08-16 16:28] VITALS: BP 149/69; PULSE 95; RESP 20; TEMP 98.8; O2SAT 96
--- NOTE | 2016-08-16 17:13 | HHI.NPPN ---
Subjective History of Present Illness 45-year-old male with past medical history of hypertension, cerebrovascular accident, history of chronic anemia who came to the hospital with altered mental status and confusion. I have seen the patient before in the past. He has now been following with Dr. Richardson and getting hemodialysis at [facility] in [facility] on Tuesday, and Tuesday. Additional Remarks Patient is alert, started eating better, now has no headache. Review of Systems General Constitutional: Fatigue Respiratory Lungs: SOB, Cough Cardiovascular Cardiac: PAZ Objective Data Data 08/15/16 08/16/16 19:00 07:00 Intake Total 360 ml Output Total 200 ml Balance 160 ml Intake Oral 360 ml Output Urine Total 200 ml # Voids 1 # Bowel Movements 0 Vital Signs Date Time Temp Pulse Resp B/P Pulse Ox O2 Delivery O2 Flow Rate FiO2 08/16/16 16:28 98.8 95 20 149/69 96 08/16/16 14:05 99 Nasal Cannula 21 08/16/16 11:41 98.4 85 20 128/57 96 08/16/16 08:48 99.3 94 20 143/66 99 08/16/16 04:49 100.2 95 19 135/63 91 08/15/16 23:55 99.4 105 20 147/70 93 08/15/16 20:37 99.9 104 18 184/84 96 -: 08/16/16 0620 08/16/16 0620 Physical Exam General Appearance: Well Nourished, Anxious Throat Throat Exam: Oral Mucosa [place] & Moist Neck Neck Exam: Neck Supple Pulmonary Resp Exam: Crackles, Rhonchi, Decreased Bases, Diminished Breath Sounds Cardiology CV Exam: Regular, Normal Sinus Rhythm Gastrointestinal/Abdomen GI Exam: Soft, Non-Tender, Bowel Sounds Present Extremeties Extremities Exam: Trace Edema Neurologic Neuro Exam: Alert, Awake Psychiatric Psych Exam: Appropriate Responses Assessment/Plan Assessment Summary: Fluid/Volume Overload, Hypertension, End Stage Renal Disease Problem List: (1) Hypertension, accelerated (2) Hyperkalemia (3) Diabetes (4) SOB (shortness of breath) (5) Altered mental status (6) ESRD (end stage renal disease) on dialysis Plan BP is better , off Nicardipine. Hgb. is stable. Continue HD TTS for now. BP is stable. U/S Gall Bladder noted, seen by GI. HIDA scan negative. CXR and V/Q scan noted. HD in AM. Problem Qualifiers (1) Diabetes: (2) Altered mental status: Qualified Code: R41.0 - Disorientation Teresita Carroll MD Aug 16, 2016 17:13
[2016-08-16 20:13] VITALS: BP 176/69; PULSE 98; RESP 18; TEMP 99.4; O2SAT 94
[2016-08-16] MEDS: MIRTAZAPINE 15 MG TAB PO SCH (21:12)
[2016-08-16] MEDS: LOSARTAN 50 MG TAB PO SCH (21:12)
[2016-08-17] VITALS (8 sets, daily range): BP systolic 136–174; BP diastolic 57–84; PULSE 89–98; RESP 16–20; TEMP 99–99.8; O2SAT 92–96
[2016-08-17] MEDS: HYDROmorphone HCL PF 1 MG/ML VIAL IV PUSH PRN ×5 (02:20→21:06)
[2016-08-17] MEDS: CHLORHEXIDINE GLUCONATE 2 % 1 PACK (2 CLOTHS) TOP SCH ×2 (04:00→21:07)
[2016-08-17] MEDS: metroNIDAZOLE 500 MG TAB PO SCH ×3 (06:42→21:00)
[2016-08-17] MEDS: NIFEdipine 20 MG CAP PO SCH ×3 (06:42→20:59)
[2016-08-17] MEDS: INSULIN ASPART SUPPLEMENTAL SCALE SQ SCH ×4 (06:43→17:22)
--- NOTE | 2016-08-17 06:53 | MB ---
cc: ADDY SAN DATE OF CONSULTATION 08/16/[address] Benja Quinn REASON FOR CONSULTATION Evaluation for hypoxia and possible sleep apnea. HISTORY OF PRESENT ILLNESS Mr. Jimenez is a pleasant 45-year-old -[place] male with longstanding history of hypertension, diabetes mellitus. He has end stage renal disease on dialysis for the last five years or so. The patient became confused and went to the EMS station that he was having some dizziness and weakness. He has blood pressure was very high. The patient was brought to the emergency room. At that time he was having pain in the left arm and possible weakness. His workup with CT scan was negative. A Stroke Alert was called; however, it was found he did not have any stroke. No t-PA was given The patient was noted that he gets short of breath now. He says usually have shortness of breath, is able to walk a good distance without any problems. He does have problems sleeping; he cannot go to sleep and does feel tired and he does snore. WORKUP DONE IN THE HOSPITAL His VQ scan is negative. HIDA scan shows no evidence of acute cholecystitis. CT scan of the brain is negative for acute process. Chest x-ray shows no acute cardiopulmonary process. His CBC showed WBC count of 12.1, hemoglobin 8.9, hematocrit 26, MCI 87, platelet count 454. INR is 1.1. Sodium 142, potassium 4.9, chloride 102, CO2 28, BUN 48, creatinine 10.33. Venous blood gas - pH 7.31, pCO2 40, pO2 41, bicarb 19, saturation 67%. PAST MEDICAL HISTORY 1. History of hypertension. 2. diabetes mellitus. 3. Gastroparesis. 4. End-stage renal disease. He is on dialysis. 5. Anxiety depression. 6. Suicidal attempt in the past. 7. History of recurrent hidradenitis. He had multiple drainages done. He says more than 75. MEDICATIONS He is currently taking - 1. Albuterol/Atrovent nebulizer treatment. 2. Lotrimin cream. 3. Phenergan p.r.n. 4. Fioricet for pain. 5. Levaquin 500 mg q. 48 hours. 6. Remeron 15 mg at nighttime. 7. Flagyl 500 mg q. 8 hours. 8. Nifedipine 20 mg q. 8 hours. 9. Renvela 60 mg three times a day. ALLERGIES CONTRAST MEDIA. REGLAN. SEAFOOD. SOCIAL HISTORY He is . He has three children of his own. No history of smoking or alcohol abuse. 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 The last time he worked was eight years ago. FAMILY HISTORY He has three children. He has one sister. Mother . Father is alive. REVIEW OF SYSTEMS Normally he is up and active, able to walk a good distance. He does snore. He does not have any excessive sleepiness during the daytime. No headache. No DVT or pulmonary embolism. PHYSICAL EXAMINATION GENERAL: A well-built, well-nourished male, not in any acute distress. VITAL SIGNS: Blood pressure 149/69, heart rate 95, respirations 20, temperature 98.8, saturation 99% on room air. HEENT EXAMINATION: Pupils are equal and reactive to light. He has bilateral cataracts. Oral mucosa and nasal mucosa normal. NECK: Supple. JVP not raised. CHEST: Equal bilaterally. No rhonchi. CV: S1 and S2 normal. ABDOMEN: Benign. EXTREMITIES: No edema. IMPRESSION 1. Hypoxia which has resolved. No evidence of pulmonary embolism on the VQ scan. 2. End-stage renal disease on dialysis. 3. Hypertension. 4. Diabetes mellitus. 5. History of recurrent hidradenitis. 6. Possible sleep apnea. PLAN 1. I have discussed with the patient we will reevaluate him for need for home oxygen therapy. He feels that he is doing well without any oxygen. 2. He will also need a sleep study as an outpatient. 3. Continue his other medications. Further treatment will depend on his course in the hospital. Thank you, Dr. Quinn, for this consult. MD JERALD Anton/NELLY /7:27 PM /6:35 AM
[2016-08-17 06:58] LABS: HEMATOCRIT 24.6 % (39.0-51.0); MEAN CELL VOLUME 86.4 FL (80.0-100.0); MEAN CORPUSCULAR HEMOGLOBIN 27.4 PG (27.0-34.0); MEAN CORPUSCULAR HGB CONC 31.7 % (32.0-36.0); PLATELET COUNT 451 TH/MM3 (150-450); RED BLOOD COUNT 2.85 MIL/MM3 (4.50-5.90); RED CELL DISTRIBUTION WIDTH 20.1 % (11.6-17.2); REVIEW FLAG FINAL; WHITE BLOOD COUNT 13.8 TH/MM3 (4.0-11.0)
[2016-08-17] MEDS: RESP: ALBUTEROL 2.5 MG/IPRATROPIUM 0.5 MG NEB (SCH) NEB ×3 (07:56→20:04)
[2016-08-17] MEDS: hydrALAZINE HCL 50 MG TAB PO SCH ×3 (08:07→17:21)
[2016-08-17] MEDS: PANTOPRAZOLE SOD 40 MG DELAYED RELEASE TAB PO SCH (08:07)
[2016-08-17] MEDS: CLOTRIMAZOLE 1% CREAM 15 GM TOPICAL SCH ×2 (08:07→21:00)
[2016-08-17] MEDS: VITAMIN B CMPLX/VITC/FOLIC AC CAP PO SCH (08:07)
[2016-08-17] MEDS: SODIUM CHLORIDE 0.9% FLUSH 5 ML FLUSH IV FLUSH SCH ×2 (08:07→21:03)
[2016-08-17] MEDS: CARVEDILOL 12.5 MG TAB PO SCH ×2 (08:07→20:59)
[2016-08-17] MEDS: SEVELAMER CARBONATE 800 MG TAB PO SCH ×3 (08:07→17:00)
[2016-08-17] MEDS: FINASTERIDE 5 MG TAB PO SCH (08:07)
[2016-08-17 08:26] LABS: BICARBONATE 25.9 MEQ/L (21.0-32.0); MAGNESIUM 2.5 MG/DL (1.5-2.5); POTASSIUM 5.9 MEQ/L (3.5-5.1)
--- NOTE | 2016-08-17 10:24 | HHI.NPPN ---
Subjective History of Present Illness 45-year-old male with past medical history of hypertension, cerebrovascular accident, history of chronic anemia who came to the hospital with altered mental status and confusion. I have seen the patient before in the past. He has now been following with Dr. Richardson and getting hemodialysis at [facility] in [facility] on Tuesday, and Tuesday. Additional Remarks Patient is alert, seen on HD, has mild nausea. Review of Systems General Constitutional: Fatigue Respiratory Lungs: SOB, Cough Cardiovascular Cardiac: PAZ Objective Data Data 08/16/16 08/17/16 19:00 07:00 Intake Total 240 ml Output Total 400 ml Balance -160 ml Intake Oral 240 ml Output Urine Total 400 ml # Voids 2 # Bowel Movements 1 0 Vital Signs Date Time Temp Pulse Resp B/P Pulse Ox O2 Delivery O2 Flow Rate FiO2 08/17/16 07:57 94 21 08/17/16 07:48 99.7 97 20 155/72 96 08/17/16 05:00 99.8 98 18 165/79 92 08/17/16 01:02 99.0 89 18 141/57 92 08/16/16 20:13 99.4 98 18 176/69 94 08/16/16 16:28 98.8 95 20 149/69 96 08/16/16 14:05 99 Nasal Cannula 21 08/16/16 11:41 98.4 85 20 128/57 96 -: 08/17/16 0630 08/17/16 0630 Physical Exam General Appearance: Well Nourished, Anxious Throat Throat Exam: Oral Mucosa [place] & Moist Neck Neck Exam: Neck Supple Pulmonary Resp Exam: Crackles, Rhonchi, Decreased Bases, Diminished Breath Sounds Cardiology CV Exam: Regular, Normal Sinus Rhythm Gastrointestinal/Abdomen GI Exam: Soft, Non-Tender, Bowel Sounds Present Extremeties Extremities Exam: Trace Edema Neurologic Neuro Exam: Alert, Awake Psychiatric Psych Exam: Appropriate Responses Assessment/Plan Assessment Summary: Fluid/Volume Overload, Hypertension, End Stage Renal Disease Problem List: (1) Hypertension, accelerated (2) Hyperkalemia (3) Diabetes (4) SOB (shortness of breath) (5) Altered mental status (6) ESRD (end stage renal disease) on dialysis Plan BP is better , off Nicardipine. Hgb. is 7.8, on Epogen. Continue HD TTS for now. BP is stable. U/S Gall Bladder noted, seen by GI. HIDA scan negative. CXR and V/Q scan noted. HD now, remove fluid as tolerated. Problem Qualifiers (1) Diabetes: (2) Altered mental status: Qualified Code: R41.0 - Disorientation Teresita Carroll MD Aug 17, 2016 10:24
[2016-08-17] MEDS: VANCOMYCIN INJ 1,500 MG in SODIUM CHLORID 0.9% 500 ML INJ 500 ML IV SCH (11:28)
[2016-08-17] MEDS: EPOETIN ALFA 10,000 UNITS/ML VIAL IV PRN (11:30)
--- NOTE | 2016-08-17 11:30 | HHI.IDPN ---
Subjective Subjective Remarks ID COVERAGE is a 45 y.o AAM with PMHx of ESRD on HD Tues, Thurs, Sat, Hidradenitis suppurativa who has recd IV antibiotics in past, PORT in place for IV access issues, prior h/o TIA, prior h/o seizures. Notes reviewed Temps 99+ HD today CSF VDRL and LEEANNE still pending HSV negative, crypto negative RPR negative MRA/MRV negative HIV negative. Hepatitis profile negative. CT LUE - some induration around AVF, no abscess Antibiotics Vanco IV Levaquin oral Flagyl oral Lines Line sites no e/o infection Past Medical History reviewed Allergies: Coded Allergies: Contrast Media (Unverified Allergy, Severe, nausea/vomiting, 08/08/16) causes n/v HAD TEST TODAY 11/15/11 TOOK BENADRYL AND DID OK. Reglan (Verified Allergy, Severe, ANXIETY, 08/08/16) Seafood (Verified Allergy, Severe, SWELLING-CANT BREATH-HIVES, 08/08/16) Objective . Vital Signs Date Time Temp Pulse Resp B/P Pulse Ox O2 Delivery O2 Flow Rate FiO2 08/17/16 07:57 94 21 08/17/16 07:48 99.7 97 20 155/72 96 08/17/16 05:00 99.8 98 18 165/79 92 08/17/16 01:02 99.0 89 18 141/57 92 08/16/16 20:13 99.4 98 18 176/69 94 08/16/16 16:28 98.8 95 20 149/69 96 08/16/16 14:05 99 Nasal Cannula 21 08/16/16 11:41 98.4 85 20 128/57 96 08/16/16 08/16/16 08/17/16 15:00 23:00 07:00 Intake Total 240 ml Output Total 200 ml 200 ml Balance -200 ml 40 ml Intake Oral 240 ml Output Urine Total 200 ml 200 ml # Voids 2 # Bowel Movements 1 0 0 . Laboratory Tests Test 08/16/16 08/17/16 06:20 06:30 White Blood Count 12.1 TH/MM3 13.8 TH/MM3 Red Blood Count 2.98 MIL/MM3 2.85 MIL/MM3 Hemoglobin 8.1 GM/DL 7.8 GM/DL Hematocrit 26.0 % 24.6 % Mean Corpuscular Volume 87.2 FL 86.4 FL Mean Corpuscular Hemoglobin 27.2 PG 27.4 PG Mean Corpuscular Hemoglobin 31.2 % 31.7 % Concent Red Cell Distribution Width 19.9 % 20.1 % Platelet Count 454 TH/MM3 451 TH/MM3 Mean Platelet Volume 7.3 FL 7.1 FL Laboratory Tests Test 08/16/16 08/17/16 06:20 06:30 Sodium Level 142 MEQ/L 140 MEQ/L Potassium Level 4.9 MEQ/L 5.9 MEQ/L Chloride Level 102 MEQ/L 103 MEQ/L Carbon Dioxide Level 28.2 MEQ/L 25.9 MEQ/L Anion Gap 12 MEQ/L 11 MEQ/L Blood Urea Nitrogen 48 MG/DL 53 MG/DL Creatinine 10.33 MG/DL 12.02 MG/DL Estimat Glomerular Filtration 7 ML/MIN 6 ML/MIN Rate Random Glucose 116 MG/DL 112 MG/DL Calcium Level 9.6 MG/DL 9.7 MG/DL Magnesium Level 2.5 MG/DL Imaging Last Impressions Upper Extremity CT 08/11/16 0000 Signed Impressions: Service Date/Time: Thursday, August 11, 2016 08:54 - CONCLUSION: Induration around an AV fistula without a focal abscess seen. Casimiro Zapata MD Chest X-Ray 08/10/1625 Signed Impressions: Service Date/Time: Wednesday, August 10, 2016 08:47 - CONCLUSION: 1. Mild cardiomegaly and diffuse increased interstitial markings likely representing edema. Casimiro Zapata MD Upper Extremity Ultrasound 08/10/16 0000 Signed Impressions: Service Date/Time: Wednesday, August 10, 2016 09:54 - CONCLUSION: 1. AV fistula present. This is patent. There is some dilatation of the proximal aspect of the fistula. 2. Dilatation of the axillary vein with some very mild peripheral mural thrombus seen. Casimiro Zapata MD Lumbar Puncture Fluoroscopy 08/09/16 0000 Signed Impressions: Service Date/Time: Tuesday, August 09, 2016 12:45 - CONCLUSION: Uncomplicated fluoroscopically guided lumbar puncture. Opening pressure 26 cm H2O. Nemesio Badillo Jr., MD Abdomen/Pelvis CT 08/08/16 193 Signed Impressions: Service Date/Time: Monday, August 08, 2016 19:58 - CONCLUSION: 1. No obstruction or acute inflammatory changes are seen in the abdomen or pelvis. Normal appendix. 2. Complex cyst of the right kidney as described above. Further characterization with a contrast enhanced study is suggested when clinically feasible. 3. Small stones in a contracted gallbladder. No inflammatory changes. No ductal stone or ductal dilatation. 4. Areas of skin and subcutaneous induration, especially the right buttock and left inguinal regions. These are nonspecific. Also a potential pilonidal cyst. 5. Diffuse sclerosis of the visualized osseous structures typical of chronic renal disease. Possible small brown tumors of the right iliac bone. 6. There is a small fat containing hernia at the umbilicus. Casimiro Hair MD Head CT 08/08/16 1853 Signed Impressions: Service Date/Time: Monday, August 08, 2016 19:00 - CONCLUSION: Normal examination for a patient of this age. No significant change has occurred. Vladimir Singer MD Chest CT 08/08/16 0000 Signed Impressions: Service Date/Time: Monday, August 08, 2016 19:58 - CONCLUSION: 1. Trace failure in the proper clinical setting. 2. Small pericardial effusion, nonspecific. 3. Coronary artery calcification. 4. Upper limits of normal axillary lymph nodes. 5. Bilateral gynecomastia. Casimiro Hair MD Brain MRI 08/08/16 0000 Signed Impressions: Service Date/Time: Monday, August 08, 2016 21:28 - CONCLUSION: 1. No acute infarct. Mild chronic white matter ischemic changes with slight progression since 2012. Vladimir Singer MD Physical Exam GENERAL: Awake and alert, NAD. SKIN: Cool and dry. No generalized rash HEENT: [place] conjunctiva. No scleral icterus. No injection or drainage. Moist mucosa NECK: Trachea midline. Supple, nontender, no meningeal signs. CARDIOVASCULAR: HS audible. No murmur appreciated. RESPIRATORY: Clear to auscultation. Breath sounds equal bilaterally. GASTROINTESTINAL: Abdomen soft, non-tender, nondistended. MUSCULOSKELETAL: Extremities without clubbing, cyanosis, or edema. LUE AV fistula site , better, no redness or induration. Not tender. Bruit and thrill +. Left axilla area with min erythema, no tenderness, and minimal discharge. NEUROLOGICAL: Awake and alert. Psych: cooperative. IV line sites with no e/o infection. PORT site with no evidence of infection. Assessment & Plan Remarks Acute metabolic encephalopathy on admission , better Abnormal LP: given behavior issues would like to r/o neurosyphilis, CSF LEEANNE virus for PML and HIV screen Hidradenitis suppurativa with left axillary cellulitis/abscess. - better Left axillary and AV fistula site cellulitis. - better Complex cyst on kidney in CT non contrast. S/P port placement for IV access ESRD on HD Tues, Thurs, Sat per . ? missed HD session Mild to moderate mitral stenosis on ECHO. Recs: Continue Vanco IV in HD. Continue Levaquin oral Continue flagyl oral. Follow cultures Follow CSF LEEANNE virus, CSF VDRL Monitor progress Tracy Small MD Aug 17, 2016 11:30
[2016-08-17] MEDS: SODIUM CHLOR 0.9% 1000 ML INJ 1,000 ML IV PRN (11:31)
[2016-08-17] MEDS: GELATIN 12 MM/7 MM FOAM TOP PRN (11:32)
--- NOTE | 2016-08-17 16:19 | HHI.PR ---
Subjective Remarks Patient states that he does not have any weakness. He denies not working with physical therapy yesterday and states that they are lying about him. Patient states that his grandfather is ill and it he would like to travel down to [place] with his father to go visit his grandfather. Patient states that he is feeling well. Patient states that "no one has told me anything." Objective Vitals Vital Signs Date Time Temp Pulse Resp B/P Pulse Ox O2 Delivery O2 Flow Rate FiO2 08/17/16 16:10 99.4 94 20 136/70 95 08/17/16 13:36 99.0 96 16 161/77 94 08/17/16 07:57 94 21 08/17/16 07:48 99.7 97 20 155/72 96 08/17/16 05:00 99.8 98 18 165/79 92 08/17/16 01:02 99.0 89 18 141/57 92 08/16/16 20:13 99.4 98 18 176/69 94 08/16/16 16:28 98.8 95 20 149/69 96 I/O 08/16/16 08/16/16 08/16/16 08/17/16 08/17/16 08/17/16 07:00 15:00 23:00 07:00 15:00 23:00 Intake Total 240 ml 120 ml Output Total 200 ml 200 ml 200 ml 2500 ml Balance -200 ml -200 ml 40 ml -2380 ml Intake Oral 240 ml 120 ml Output Urine Total 200 ml 200 ml 200 ml Hemodialysis 2500 ml # Voids 2 1 # Bowel Movements 0 1 0 0 1 Result Diagram: 08/17/1662908/17/1630 Objective Remarks GENERAL: Well-nourished, well-developed male patient. SKIN: Warm and dry. Right axilla dry with no active lesions. Left axilla dry however the posterior scapula with dressing, also dressing lue lateral arm. HEAD: Normocephalic. EYES: No scleral icterus. No injection or drainage. NECK: Supple, trachea midline. No JVD or lymphadenopathy. CARDIOVASCULAR: Regular rate and rhythm without murmurs, gallops, or rubs. RESPIRATORY: Breath sounds equal bilaterally. No accessory muscle use. GASTROINTESTINAL: Abdomen soft, non-tender, nondistended. EXTREMITIES: No cyanosis, or edema. NEUROLOGICAL: Awake, alert, and oriented x 3. Non-focal. Procedures LP A/P Assessment and Plan Encephalopathy/ Headache With left sided weakness. The pt presented as stroke alert. He presented with severely elevated BPs 230/208. Appreciate ID and neurology input. MRI brain with mild periventricular chronic white matter ischemic changes with slight progression since 2012, doppler carotid neg, mra brain neg. LP with slightly elevated protein. Follow CSF LEEANNE virus, CSF VDRL per ID. EEG with generalized slowing. Improving. Psych consult appreciated. Repeat head CT 08/13 without acute process. Headache persists. Left sided, likely a migraine. Improved with prochlorperazine. - neuro checks. - Continue blood pressure control. Improved. - continue Remeron per psych. - Ativan for anxiety. -Sleep study as OP - antibiotics per ID. On vanco, Levaquin and Flagyl. - PT/ OT. Encouraged patient to be compliant with PT. (no documented walk yet with PT). - Prochlorperazine and Fioricet as needed. Respiratory failure The pt had apnea events. Also some evidence of pulmonary edema. On room air but desaturated on walk test. V/Q scan negative for acute disease. CXR unremarkable. - volume management with dialysis. - oxygen as needed. - standing nebs. - pulmonology consult appreciated. -Repeat walk test (may have desat'ed due to pulm edema which has now improved). -Sleep study as outpatient (pt is claustrophobic however I d/w with him if he does have DEANNA he can discuss nasal pillow CPAP) Hidradenitis suppurative with Left axillary cellulitis and AV fistula site cellulitis.improved. on vanc IV per ID in HD. levaquin, flagyl. Mild to moderate mitral stenosis seen on 2d echo. Hypertensive emergency With elevated troponin. Appreciate cardiology consult. Off of nicardipine drip. Blood pressure improved. - continue losartan, carvedilol, hydralazine and Procardia. - ASA. - hydralazine and labetalol prn. Abdominal pain Located in the right upper quadrant. Recent CT abdomen w/o contrast showed complex right renal cyst among other findings. LFTs unremarkable. Now with nausea and vomiting. RUQ US with abnormal gallbladder. GI consult appreciated. HIDA scan unremarkable. Improved 08/16. - pain control and antiemetics as needed. - follow-up with GI. Continue bethanechol, promethazine as needed. End-stage renal disease On hemodialysis. - dialysis per nephrology. Diabetes mellitus A1c 6.2%. Glucose well controlled 08/15. - SSI for glycemic control. Prophylaxis: PPI/SCDs/subcutaneous heparin. Jazmine íDaz MD Aug 17, 2016 16:19
[2016-08-17 17:51] LABS: VDRL CSF NON-REACTIVE (())
--- NOTE | 2016-08-17 19:40 | HHI.PR ---
Subjective Remarks 45 YOAA male with HTN,DM,ESRD, on Hd Denies sob feels tired Nausea improved Objective Vital Signs Vital Signs Date Time Temp Pulse Resp B/P Pulse Ox O2 Delivery O2 Flow Rate FiO2 08/17/16 16:10 99.4 94 20 136/70 95 08/17/16 13:36 99.0 96 16 161/77 94 08/17/16 07:57 94 21 08/17/16 07:48 99.7 97 20 155/72 96 08/17/16 05:00 99.8 98 18 165/79 92 08/17/16 01:02 99.0 89 18 141/57 92 08/16/16 20:13 99.4 98 18 176/69 94 I/O 08/16/16 08/16/16 08/16/16 08/17/16 08/17/16 08/17/16 06:59 14:59 22:59 06:59 14:59 22:59 Intake Total 240 ml 120 ml Output Total 200 ml 200 ml 200 ml 2500 ml Balance -200 ml -200 ml 40 ml -2380 ml Intake Oral 240 ml 120 ml Output Urine Total 200 ml 200 ml 200 ml Hemodialysis 2500 ml # Voids 2 1 # Bowel Movements 0 1 0 0 1 Result Diagram: 08/17/16 0630 08/17/16 0630 Objective Remarks GENERAL: WBWN Male,NAD SKIN: Warm and dry. HEAD: Normocephalic. EYES: No scleral icterus. No injection or drainage. NECK: Supple, trachea midline. No JVD or lymphadenopathy. CARDIOVASCULAR: Regular rate and rhythm without murmurs, gallops, or rubs. RESPIRATORY: Breath sounds equal bilaterally. No accessory muscle use. GASTROINTESTINAL: Abdomen soft, non-tender, nondistended. MUSCULOSKELETAL: No cyanosis, or edema. BACK: Nontender without obvious deformity. No CVA tenderness. A/P Assessment and Plan Symtoms suggestive of DEANNA HTN ESRD hypoxia resolved PLAN: Stable on RA Sleep study as out pt HD PFT Jakub Hodgson MD Aug 17, 2016 19:40
[2016-08-17] MEDS: LOSARTAN 50 MG TAB PO SCH (20:59)
[2016-08-17] MEDS: MIRTAZAPINE 15 MG TAB PO SCH (21:00)
[2016-08-18] VITALS (8 sets, daily range): BP systolic 127–176; BP diastolic 52–73; PULSE 81–99; RESP 18–20; TEMP 97.4–98.8; O2SAT 93–98
[2016-08-18] MEDS: HYDROmorphone HCL PF 1 MG/ML VIAL IV PUSH PRN ×5 (02:43→23:43)
[2016-08-18] MEDS: INSULIN ASPART SUPPLEMENTAL SCALE SQ SCH ×4 (06:00→18:00)
[2016-08-18] MEDS: metroNIDAZOLE 500 MG TAB PO SCH ×3 (06:25→23:31)
[2016-08-18] MEDS: NIFEdipine 20 MG CAP PO SCH ×3 (06:25→23:31)
[2016-08-18] MEDS: ONDANSETRON HCL 4 MG/2 ML VIAL IV PRN ×3 (06:37→23:38)
[2016-08-18] MEDS: SEVELAMER CARBONATE 800 MG TAB PO SCH ×3 (08:00→18:07)
[2016-08-18] MEDS: RESP: ALBUTEROL 2.5 MG/IPRATROPIUM 0.5 MG NEB (SCH) NEB ×3 (08:19→19:04)
[2016-08-18] MEDS: FINASTERIDE 5 MG TAB PO SCH (08:23)
[2016-08-18] MEDS: VITAMIN B CMPLX/VITC/FOLIC AC CAP PO SCH (08:23)
[2016-08-18] MEDS: hydrALAZINE HCL 50 MG TAB PO SCH ×3 (08:23→18:08)
[2016-08-18] MEDS: PANTOPRAZOLE SOD 40 MG DELAYED RELEASE TAB PO SCH (08:23)
[2016-08-18] MEDS: CARVEDILOL 12.5 MG TAB PO SCH ×2 (08:23→23:31)
[2016-08-18] MEDS: SODIUM CHLORIDE 0.9% FLUSH 5 ML FLUSH IV FLUSH SCH ×2 (08:23→23:34)
[2016-08-18] MEDS: CLOTRIMAZOLE 1% CREAM 15 GM TOPICAL SCH ×2 (08:24→23:33)
[2016-08-18] MEDS ORDERED: ALTEPLASE RECOMBINANT 2 MG VIAL ONE (08:45)
[2016-08-18] MEDS ORDERED: ALTEPLASE RECOMBINANT 2 MG VIAL PRN (08:45)
[2016-08-18] MEDS: LEVOFLOXACIN 500 MG TAB PO SCH (13:19)
[2016-08-18 13:20] LABS: AUTOMATED NEUTROPHIL # 8.9 TH/MM3 (1.8-7.7); BASOPHIL # 0.1 TH/MM3 (0-0.2); BASOPHIL % 0.7 % (0.0-2.0); EOSINOPHIL # 0.3 TH/MM3 (0-0.4); EOSINOPHIL % 2.4 % (0.0-4.0); HEMATOCRIT 25.5 % (39.0-51.0); HEMO FLAGS DIFF FINAL; LYMPH % 8.9 % (9.0-44.0); MEAN CELL VOLUME 86.1 FL (80.0-100.0); MEAN CORPUSCULAR HEMOGLOBIN 27.2 PG (27.0-34.0); MEAN CORPUSCULAR HGB CONC 31.5 % (32.0-36.0); MONO % 8.7 % (0.0-8.0); NEUT % 79.3 % (16.0-70.0); PLATELET COUNT 502 TH/MM3 (150-450); RED BLOOD COUNT 2.96 MIL/MM3 (4.50-5.90); RED CELL DISTRIBUTION WIDTH 20.1 % (11.6-17.2); WHITE BLOOD COUNT 11.2 TH/MM3 (4.0-11.0)
[2016-08-18 13:44] LABS: BICARBONATE 28.9 MEQ/L (21.0-32.0)
--- NOTE | 2016-08-18 14:39 | HHI.FF ---
Infusion Therapy Location of Infusion Therapy: Dialysis Center Patient Information Patient Weight 92 kg Diagnosis: Diagnosis cellulitis around AVF LUE Hidradenitis suppurative L axilla Coded Allergies: Contrast Media (Unverified Allergy, Severe, nausea/vomiting, 08/08/16) causes n/v HAD TEST TODAY 11/15/11 TOOK BENADRYL AND DID OK. Reglan (Verified Allergy, Severe, ANXIETY, 08/08/16) Seafood (Verified Allergy, Severe, SWELLING-CANT BREATH-HIVES, 08/08/16) Administer Medication Vancomycin 1 gram IV q 48 hours w/Hemodialysis ,,Sat Stop Treatment: Sep 04, 2016 Additional Information Venous access: Other (LUE AVF) Additional Instructions [x] Peripheral flush and dressing changes per protocol [x] Implanted port and central carton liner: * Implanted port: 10 ml Normal Saline followed by 5 ml Heparin 100 units/ml Heparin flush after each use and monthly to maintain. [] May leave port accessed during therapy. [] May leave peripheral site accessed for duration of therapy. [x] If patient has SOB or respiratory distress, check oxygen saturation. If less than 90% or clinical signs of respiratory distress, administer oxygen at 2 L/min. via nasal cannula and notify physician. [x] Anaphylaxis/Reaction orders: * Stop infusion. * Keep IV line open with saline flush. * Notify physician. * Monitor vital signs every 15 minutes until symptoms resolve. * Check Oxygen saturation; Oxygen at 2 L/min. via nasal cannula if less than 90% or clinical signs of respiratory distress. * Administer diphenhydramine (Benadryl) 25 mg IV STAT, (unless patient has received as pre-med). May repeat once, if necessary. * Solu-Cortef 250 mg IVP over 30-60 seconds, use 100 mg vials for each dissolution. * Epinephrine (1mg/1 ml) 0.3 mg subcutaneously or IVP now with any signs of respiratory distress. * Check with physician for new additional pre-med orders if patient is re- challenged or re-treated. [x] May remove PICC line when treatment complete, after confirming with Physician. [x] If the patient is admitted to the hospital, the ED, or transferred via [facility] , complete transfer form including medication reconciliation order sheet. Tracy Small MD Aug 18, 2016 14:39
--- NOTE | 2016-08-18 14:41 | HHI.IDPN ---
Subjective Subjective Remarks ID COVERAGE is a 45 y.o AAM with PMHx of ESRD on HD Tues, Thurs, Sat, Hidradenitis suppurativa who has recd IV antibiotics in past, PORT in place for IV access issues, prior h/o TIA, prior h/o seizures. Notes reviewed Temps better Anxious to go home D/W Dr Ureña CSF VDRL negative CSF LEEANNE still pending HSV negative, crypto negative RPR negative MRA/MRV negative HIV negative. Hepatitis profile negative. CT LUE - some induration around AVF, no abscess Antibiotics Vanco IV Levaquin oral Flagyl oral Lines Line sites no e/o infection Past Medical History reviewed Allergies: Coded Allergies: Contrast Media (Unverified Allergy, Severe, nausea/vomiting, 08/08/16) causes n/v HAD TEST TODAY 11/15/11 TOOK BENADRYL AND DID OK. Reglan (Verified Allergy, Severe, ANXIETY, 08/08/16) Seafood (Verified Allergy, Severe, SWELLING-CANT BREATH-HIVES, 08/08/16) Objective . Vital Signs Date Time Temp Pulse Resp B/P Pulse Ox O2 Delivery O2 Flow Rate FiO2 08/18/16 12:41 97.4 84 18 149/69 97 08/18/16 11:40 2.00 08/18/16 08:20 95 21 08/18/16 08:14 98.5 92 18 128/52 98 08/18/16 07:08 15 08/18/16 04:00 98.4 93 20 134/62 94 08/18/16 00:00 98.8 81 18 127/59 93 08/17/16 20:07 93 21 08/17/16 20:00 99.4 98 18 174/84 92 08/17/16 16:10 99.4 94 20 136/70 95 08/17/16 08/17/16 08/18/16 15:00 23:00 07:00 Intake Total 120 ml 300 ml 300 ml Output Total 2500 ml Balance -2380 ml 300 ml 300 ml Intake Oral 120 ml 300 ml 300 ml Hemodialysis 2500 ml # Voids 1 1 1 # Bowel Movements 1 1 . Laboratory Tests Test 08/17/16 08/18/16 06:30 12:40 White Blood Count 13.8 TH/MM3 11.2 TH/MM3 Red Blood Count 2.85 MIL/MM3 2.96 MIL/MM3 Hemoglobin 7.8 GM/DL 8.1 GM/DL Hematocrit 24.6 % 25.5 % Mean Corpuscular Volume 86.4 FL 86.1 FL Mean Corpuscular Hemoglobin 27.4 PG 27.2 PG Mean Corpuscular Hemoglobin 31.7 % 31.5 % Concent Red Cell Distribution Width 20.1 % 20.1 % Platelet Count 451 TH/MM3 502 TH/MM3 Mean Platelet Volume 7.1 FL 7.5 FL Neutrophils (%) (Auto) 79.3 % Lymphocytes (%) (Auto) 8.9 % Monocytes (%) (Auto) 8.7 % Eosinophils (%) (Auto) 2.4 % Basophils (%) (Auto) 0.7 % Neutrophils # (Auto) 8.9 TH/MM3 Lymphocytes # (Auto) 1.0 TH/MM3 Monocytes # (Auto) 1.0 TH/MM3 Eosinophils # (Auto) 0.3 TH/MM3 Basophils # (Auto) 0.1 TH/MM3 CBC Comment DIFF FINAL Differential Comment Laboratory Tests Test 08/17/16 08/18/16 06:30 12:40 Sodium Level 140 MEQ/L 140 MEQ/L Potassium Level 5.9 MEQ/L 5.0 MEQ/L Chloride Level 103 MEQ/L 100 MEQ/L Carbon Dioxide Level 25.9 MEQ/L 28.9 MEQ/L Anion Gap 11 MEQ/L 11 MEQ/L Blood Urea Nitrogen 53 MG/DL 42 MG/DL Creatinine 12.02 MG/DL 10.18 MG/DL Estimat Glomerular Filtration 6 ML/MIN 7 ML/MIN Rate Random Glucose 112 MG/DL 124 MG/DL Calcium Level 9.7 MG/DL 9.2 MG/DL Magnesium Level 2.5 MG/DL Imaging Last Impressions Upper Extremity CT 08/11/16 0000 Signed Impressions: Service Date/Time: Thursday, August 11, 2016 08:54 - CONCLUSION: Induration around an AV fistula without a focal abscess seen. Casimiro Zapata MD Chest X-Ray 08/10/16 0925 Signed Impressions: Service Date/Time: Wednesday, August 10, 2016 08:47 - CONCLUSION: 1. Mild cardiomegaly and diffuse increased interstitial markings likely representing edema. Casimiro Zapata MD Upper Extremity Ultrasound 08/10/16 0000 Signed Impressions: Service Date/Time: Wednesday, August 10, 2016 09:54 - CONCLUSION: 1. AV fistula present. This is patent. There is some dilatation of the proximal aspect of the fistula. 2. Dilatation of the axillary vein with some very mild peripheral mural thrombus seen. Casimiro Zapata MD Lumbar Puncture Fluoroscopy 08/09/16 0000 Signed Impressions: Service Date/Time: Tuesday, August 09, 2016 12:45 - CONCLUSION: Uncomplicated fluoroscopically guided lumbar puncture. Opening pressure 26 cm H2O. Nemesio Badillo Jr., MD Abdomen/Pelvis CT 08/08/16 1933 Signed Impressions: Service Date/Time: Monday, August 08, 2016 19:58 - CONCLUSION: 1. No obstruction or acute inflammatory changes are seen in the abdomen or pelvis. Normal appendix. 2. Complex cyst of the right kidney as described above. Further characterization with a contrast enhanced study is suggested when clinically feasible. 3. Small stones in a contracted gallbladder. No inflammatory changes. No ductal stone or ductal dilatation. 4. Areas of skin and subcutaneous induration, especially the right buttock and left inguinal regions. These are nonspecific. Also a potential pilonidal cyst. 5. Diffuse sclerosis of the visualized osseous structures typical of chronic renal disease. Possible small brown tumors of the right iliac bone. 6. There is a small fat containing hernia at the umbilicus. Csaimiro Hair MD Head CT 08/08/16 185 Signed Impressions: Service Date/Time: Monday, August 08, 2016 19:00 - CONCLUSION: Normal examination for a patient of this age. No significant change has occurred. Vladimir Singer MD Chest CT 08/08/16 0000 Signed Impressions: Service Date/Time: Monday, August 08, 2016 19:58 - CONCLUSION: 1. Trace failure in the proper clinical setting. 2. Small pericardial effusion, nonspecific. 3. Coronary artery calcification. 4. Upper limits of normal axillary lymph nodes. 5. Bilateral gynecomastia. Casimiro Hair MD Brain MRI 08/08/16 0000 Signed Impressions: Service Date/Time: Monday, August 08, 2016 21:28 - CONCLUSION: 1. No acute infarct. Mild chronic white matter ischemic changes with slight progression since 2012. Vladimir Singer MD Physical Exam GENERAL: Awake and alert, NAD. SKIN: Cool and dry. No generalized rash HEENT: [place] conjunctiva. No scleral icterus. No injection or drainage. Moist mucosa NECK: Trachea midline. Supple, nontender, no meningeal signs. CARDIOVASCULAR: HS audible. No murmur appreciated. RESPIRATORY: Clear to auscultation. Breath sounds equal bilaterally. GASTROINTESTINAL: Abdomen soft, non-tender, nondistended. MUSCULOSKELETAL: Extremities without clubbing, cyanosis, or edema. LUE AV fistula site , better, no redness or induration. Not tender. . Left axilla area with min erythema, no tenderness, and no discharge. NEUROLOGICAL: Awake and alert. Psych: cooperative. IV line sites with no e/o infection. PORT site with no evidence of infection. Assessment & Plan Remarks Acute metabolic encephalopathy on admission , better Abnormal LP: given behavior issues would like to r/o neurosyphilis, CSF LEEANNE virus for PML and HIV screen Hidradenitis suppurativa with left axillary cellulitis/abscess. - better Left axillary and AV fistula site cellulitis. - better Complex cyst on kidney in CT non contrast. S/P port placement for IV access ESRD on HD Tues, Th, Sat per . ? missed HD session Mild to moderate mitral stenosis on ECHO. Recs: Continue Vanco IV in HD. - give longer since area involves his AVF Continue Levaquin oral Continue flagyl oral. End dates ordered for his oral Abx Will ask CM to arrange for his IV Vanco to be given with HD OK to D/C once arrangements made Explained plan to patient D/W Dr Bre Small,Tracy Lowe MD Aug 18, 2016 14:41
[2016-08-18] MEDS ORDERED: OXYGENTANK NAS.CANULA (15:05)
--- NOTE | 2016-08-18 18:42 | HHI.PR ---
Subjective Remarks Patient denies pain or headache. He ambulated well today during his oxygen walk test. He still desats to 83% on room air and will require ambulatory oxygen. Sats are normal at rest on room air. Objective Vitals Vital Signs Date Time Temp Pulse Resp B/P Pulse Ox O2 Delivery O2 Flow Rate FiO2 08/18/16 17:21 98.6 90 18 157/73 93 08/18/16 14:00 15 08/18/16 12:41 97.4 84 18 149/69 97 08/18/16 11:40 2.00 08/18/16 08:20 95 21 08/18/16 08:14 98.5 92 18 128/52 98 08/18/16 04:00 98.4 93 20 134/62 94 08/18/16 00:00 98.8 81 18 127/59 93 08/17/16 20:07 93 21 08/17/16 20:00 99.4 98 18 174/84 92 I/O 08/17/16 08/17/16 08/17/16 08/18/16 08/18/16 08/18/16 07:00 15:00 23:00 07:00 15:00 23:00 Intake Total 240 ml 120 ml 300 ml 300 ml Output Total 200 ml 2500 ml Balance 40 ml -2380 ml 300 ml 300 ml Intake Oral 240 ml 120 ml 300 ml 300 ml Output Urine Total 200 ml Hemodialysis 2500 ml # Voids 1 1 1 3 # Bowel Movements 0 1 1 Result Diagram: 08/18/16 1240 08/18/16 1240 Objective Remarks GENERAL: Well-nourished, well-developed male patient. SKIN: Warm and dry. Right axilla dry with no active lesions. Left axilla dry however the posterior scapula with dressing, also dressing lue lateral arm. HEAD: Normocephalic. EYES: No scleral icterus. No injection or drainage. NECK: Supple, trachea midline. No JVD or lymphadenopathy. CARDIOVASCULAR: Regular rate and rhythm without murmurs, gallops, or rubs. RESPIRATORY: Breath sounds equal bilaterally. No accessory muscle use. GASTROINTESTINAL: Abdomen soft, non-tender, nondistended. EXTREMITIES: No cyanosis, or edema. NEUROLOGICAL: Awake, alert, and oriented x 3. Non-focal. Procedures LP A/P Assessment and Plan Encephalopathy/ Headache - likely hypertensive encephloaphty With left sided weakness. The pt presented as stroke alert. He presented with severely elevated BPs 230/208. Appreciate ID and neurology input. MRI brain with mild periventricular chronic white matter ischemic changes with slight progression since 2012, doppler carotid neg, mra brain neg. LP with slightly elevated protein. Follow CSF LEEANNE virus, CSF VDRL per ID. EEG with generalized slowing. Improving. Psych consult appreciated. Repeat head CT 08/13 without acute process. Headache improved. Left sided, likely a migraine. Improved with prochlorperazine. - neuro checks. - Continue blood pressure control. Improved. Patient encouraged to check BP daily and keep record for Dr. Richardson (his neprhologist). - continue Remeron per psych. - Ativan for anxiety. -Sleep study as OP - antibiotics per ID. On vanco with dialysis to continue for several more weeks. I discussed with Dr. Small today. - PT/ OT. Encouraged patient to be compliant with PT. - Prochlorperazine and Fioricet as needed. Respiratory failure The pt had apnea events. Also some evidence of pulmonary edema. On room air but desaturated on walk test again today. V/Q scan negative for acute disease. CXR unremarkable. - volume management with dialysis. - oxygen as needed. - standing nebs. - pulmonology consult appreciated. Discussed with Dr. Hodgson - patient will follow-up with him for sleep study test and PFTs. -Arrange home oxygen. -Repeat walk test (may have desat'ed due to pulm edema which has now improved). -Sleep study as outpatient (pt is claustrophobic however I d/w with him if he does have DEANNA he can discuss nasal pillow CPAP) Hidradenitis suppurative with Left axillary cellulitis and AV fistula site cellulitis.improved. on vanc IV per ID in HD for 2 more weeks. d/w ID Mild to moderate mitral stenosis seen on 2d echo. Hypertensive emergency With elevated troponin. Appreciate cardiology consult. Off of nicardipine drip. Blood pressure improved. - continue losartan, carvedilol, hydralazine and Procardia. - ASA. - hydralazine and labetalol prn. Abdominal pain Located in the right upper quadrant. Recent CT abdomen w/o contrast showed complex right renal cyst among other findings. LFTs unremarkable. Now with nausea and vomiting. RUQ US with abnormal gallbladder. GI consult appreciated. HIDA scan unremarkable. Improved 08/16. - pain control and antiemetics as needed. - follow-up with GI. Continue bethanechol, promethazine as needed. End-stage renal disease On hemodialysis. - dialysis per nephrology. Diabetes mellitus A1c 6.2%. Glucose well controlled 08/15. - SSI for glycemic control. Prophylaxis: PPI/SCDs/subcutaneous heparin. Discharge Planning DC home tomorrow after dialysis and after home O2 is arranged. Jazmine Díza MD Aug 18, 2016 18:42
--- NOTE | 2016-08-18 19:03 | HHI.PR ---
Subjective Remarks 45 YOAA male with HTN,DM,ESRD, on Hd Denies sob feels tired Nausea improved Desaturates on Ambulation Objective Vital Signs Vital Signs Date Time Temp Pulse Resp B/P Pulse Ox O2 Delivery O2 Flow Rate FiO2 08/18/16 17:21 98.6 90 18 157/73 93 08/18/16 14:00 15 08/18/16 12:41 97.4 84 18 149/69 97 08/18/16 11:40 2.00 08/18/16 08:20 95 21 08/18/16 08:14 98.5 92 18 128/52 98 08/18/16 04:00 98.4 93 20 134/62 94 08/18/16 00:00 98.8 81 18 127/59 93 08/17/16 20:07 93 21 08/17/16 20:00 99.4 98 18 174/84 92 I/O 08/17/16 08/17/16 08/17/16 08/18/16 08/18/16 08/18/16 07:00 15:00 23:00 07:00 15:00 23:00 Intake Total 240 ml 120 ml 300 ml 300 ml Output Total 200 ml 2500 ml Balance 40 ml -2380 ml 300 ml 300 ml Intake Oral 240 ml 120 ml 300 ml 300 ml Output Urine Total 200 ml Hemodialysis 2500 ml # Voids 1 1 1 3 # Bowel Movements 0 1 1 Result Diagram: 08/18/16 1240 08/18/16 1240 Objective Remarks GENERAL: WBWN Male,NAD SKIN: Warm and dry. HEAD: Normocephalic. EYES: No scleral icterus. No injection or drainage. NECK: Supple, trachea midline. No JVD or lymphadenopathy. CARDIOVASCULAR: Regular rate and rhythm without murmurs, gallops, or rubs. RESPIRATORY: Breath sounds equal bilaterally. No accessory muscle use. GASTROINTESTINAL: Abdomen soft, non-tender, nondistended. MUSCULOSKELETAL: No cyanosis, or edema. BACK: Nontender without obvious deformity. No CVA tenderness. A/P Assessment and Plan Symtoms suggestive of DEANNA HTN ESRD hypoxia resolved PLAN: Stable on RA Sleep study as out pt HD PFT and Sleep study as out patient Jakub Hodgson MD Aug 18, 2016 19:03
[2016-08-18] MEDS: MIRTAZAPINE 15 MG TAB PO SCH (21:00)
--- NOTE | 2016-08-18 21:58 | HHI.NPPN ---
Subjective History of Present Illness 45-year-old male with past medical history of hypertension, cerebrovascular accident, history of chronic anemia who came to the hospital with altered mental status and confusion. I have seen the patient before in the past. He has now been following with Dr. Richardson and getting hemodialysis at [facility] in [facility] on Tuesday, and Tuesday. Additional Remarks Patient is alert, breathing is better, now on room air. Review of Systems General Constitutional: Fatigue Respiratory Lungs: SOB, Cough Cardiovascular Cardiac: PAZ Objective Data Data 08/17/16 08/18/16 19:00 07:00 Intake Total 120 ml 600 ml Output Total 2500 ml Balance -2380 ml 600 ml Intake Oral 120 ml 600 ml Hemodialysis 2500 ml # Voids 1 2 # Bowel Movements 1 1 Vital Signs Date Time Temp Pulse Resp B/P Pulse Ox O2 Delivery O2 Flow Rate FiO2 08/18/16 19:04 95 21 08/18/16 17:21 98.6 90 18 157/73 93 08/18/16 14:00 15 08/18/16 12:41 97.4 84 18 149/69 97 08/18/16 11:40 2.00 08/18/16 08:20 95 21 08/18/16 08:14 98.5 92 18 128/52 98 08/18/16 04:00 98.4 93 20 134/62 94 08/18/16 00:00 98.8 81 18 127/59 93 -: 08/18/16 1240 08/18/16 1240 Physical Exam General Appearance: Well Nourished, Anxious Throat Throat Exam: Oral Mucosa [place] & Moist Neck Neck Exam: Neck Supple Pulmonary Resp Exam: Crackles, Rhonchi, Decreased Bases, Diminished Breath Sounds Cardiology CV Exam: Regular, Normal Sinus Rhythm Gastrointestinal/Abdomen GI Exam: Soft, Non-Tender, Bowel Sounds Present Extremeties Extremities Exam: Trace Edema Neurologic Neuro Exam: Alert, Awake Psychiatric Psych Exam: Appropriate Responses Assessment/Plan Assessment Summary: Fluid/Volume Overload, Hypertension, End Stage Renal Disease Problem List: (1) Hypertension, accelerated (2) Hyperkalemia (3) Diabetes (4) SOB (shortness of breath) (5) Altered mental status (6) ESRD (end stage renal disease) on dialysis Plan BP is better , off Nicardipine. Hgb. is 8.1, on Epogen. Continue HD TTS for now. BP is stable. U/S Gall Bladder noted, seen by GI. HIDA scan negative. CXR and V/Q scan noted. Seen by pulmonary, possible DEANNA. Will need sleep study as out patient. HD in AM. Problem Qualifiers (1) Diabetes: (2) Altered mental status: Qualified Code: R41.0 - Disorientation Teresita Carroll MD Aug 18, 2016 21:58
[2016-08-18] MEDS: LOSARTAN 50 MG TAB PO SCH (23:31)
[2016-08-18] MEDS: CHLORHEXIDINE GLUCONATE 2 % 1 PACK (2 CLOTHS) TOP SCH (23:32)
[2016-08-19] VITALS (7 sets, daily range): BP systolic 116–166; BP diastolic 55–79; PULSE 82–98; RESP 18–20; TEMP 97.7–99.5; O2SAT 93–98
[2016-08-19] MEDS: LORazepam 0.5 MG TAB PO PRN (03:17)
[2016-08-19] MEDS: ONDANSETRON HCL 4 MG/2 ML VIAL IV PRN (04:24)
[2016-08-19] MEDS: HYDROmorphone HCL PF 1 MG/ML VIAL IV PUSH PRN ×3 (04:24→18:55)
[2016-08-19] MEDS: INSULIN ASPART SUPPLEMENTAL SCALE SQ SCH ×4 (04:27→18:47)
[2016-08-19] MEDS: NIFEdipine 20 MG CAP PO SCH ×3 (05:21→22:26)
[2016-08-19] MEDS: metroNIDAZOLE 500 MG TAB PO SCH ×3 (05:21→22:27)
[2016-08-19 06:54] LABS: AUTOMATED NEUTROPHIL # 8.1 TH/MM3 (1.8-7.7); BASOPHIL # 0.1 TH/MM3 (0-0.2); BASOPHIL % 0.9 % (0.0-2.0); EOSINOPHIL # 0.3 TH/MM3 (0-0.4); EOSINOPHIL % 3.1 % (0.0-4.0); HEMATOCRIT 23.3 % (39.0-51.0); HEMO FLAGS DIFF FINAL; LYMPH % 8.5 % (9.0-44.0); LYMPHOCYTE # 0.9 TH/MM3 (1.0-4.8); MEAN CELL VOLUME 85.4 FL (80.0-100.0); MEAN CORPUSCULAR HGB CONC 32.8 % (32.0-36.0); MONO % 9.1 % (0.0-8.0); NEUT % 78.4 % (16.0-70.0); PLATELET COUNT 454 TH/MM3 (150-450); RED BLOOD COUNT 2.73 MIL/MM3 (4.50-5.90); RED CELL DISTRIBUTION WIDTH 19.5 % (11.6-17.2); WHITE BLOOD COUNT 10.4 TH/MM3 (4.0-11.0)
[2016-08-19 07:32] LABS: BICARBONATE 27.7 MEQ/L (21.0-32.0); POTASSIUM 5.2 MEQ/L (3.5-5.1)
[2016-08-19] MEDS: RESP: ALBUTEROL 2.5 MG/IPRATROPIUM 0.5 MG NEB (SCH) NEB ×2 (08:42→13:19)
[2016-08-19] MEDS: VITAMIN B CMPLX/VITC/FOLIC AC CAP PO SCH (09:35)
[2016-08-19] MEDS: hydrALAZINE HCL 50 MG TAB PO SCH ×3 (09:35→18:46)
[2016-08-19] MEDS: FINASTERIDE 5 MG TAB PO SCH (09:37)
[2016-08-19] MEDS: PANTOPRAZOLE SOD 40 MG DELAYED RELEASE TAB PO SCH (09:37)
[2016-08-19] MEDS: CARVEDILOL 12.5 MG TAB PO SCH ×2 (09:37→22:27)
[2016-08-19] MEDS: SODIUM CHLORIDE 0.9% FLUSH 5 ML FLUSH IV FLUSH SCH ×2 (09:38→22:25)
[2016-08-19] MEDS: SEVELAMER CARBONATE 800 MG TAB PO SCH ×3 (09:41→18:46)
[2016-08-19] MEDS: CLOTRIMAZOLE 1% CREAM 15 GM TOPICAL SCH ×2 (09:41→22:27)
[2016-08-19] MEDS: EPOETIN ALFA 10,000 UNITS/ML VIAL IV PRN (16:26)
[2016-08-19] MEDS: SODIUM CHLOR 0.9% 1000 ML INJ 1,000 ML IV PRN (16:26)
[2016-08-19] MEDS: VANCOMYCIN INJ 1,500 MG in SODIUM CHLORID 0.9% 500 ML INJ 500 ML IV SCH (16:26)
[2016-08-19] MEDS: GELATIN 12 MM/7 MM FOAM TOP PRN (16:27)
--- NOTE | 2016-08-19 18:56 | HHI.PR ---
Subjective Remarks 45 YOAA male with HTN,DM,ESRD, on Hd Denies sob feels tired Nausea improved No new complaint Objective Vital Signs Vital Signs Date Time Temp Pulse Resp B/P Pulse Ox O2 Delivery O2 Flow Rate FiO2 08/19/16 12:18 99.0 82 20 166/79 93 08/19/16 08:44 93 21 08/19/16 08:39 99.1 90 20 144/68 97 08/19/16 04:00 97.7 83 18 116/55 96 08/19/16 00:13 18 08/19/16 00:00 97.7 96 18 166/71 95 08/18/16 20:00 97.8 99 18 176/70 93 08/18/16 19:04 95 21 I/O 08/18/16 08/18/16 08/18/16 08/19/16 08/19/16 08/19/16 07:00 15:00 23:00 07:00 15:00 23:00 Intake Total 300 ml 360 ml Output Total 3000 ml Balance 300 ml 360 ml -3000 ml Intake Oral 300 ml 360 ml Hemodialysis 3000 ml # Voids 1 5 # Bowel Movements 1 1 Result Diagram: 08/19/1618 08/19/16 0618 Objective Remarks GENERAL: WBWN Male,NAD SKIN: Warm and dry. HEAD: Normocephalic. EYES: No scleral icterus. No injection or drainage. NECK: Supple, trachea midline. No JVD or lymphadenopathy. CARDIOVASCULAR: Regular rate and rhythm without murmurs, gallops, or rubs. RESPIRATORY: Breath sounds equal bilaterally. No accessory muscle use. GASTROINTESTINAL: Abdomen soft, non-tender, nondistended. MUSCULOSKELETAL: No cyanosis, or edema. BACK: Nontender without obvious deformity. No CVA tenderness. A/P Assessment and Plan Symtoms suggestive of DEANNA HTN ESRD hypoxia resolved PLAN: Stable on RA Sleep study as out pt HD PFT and Sleep study as out patient Stable from pulm standpoint Jakub Hodgson MD Aug 19, 2016 18:56
--- NOTE | 2016-08-19 19:27 | HHI.PR ---
Subjective Remarks Pt c/o generalized headache. He wants to go home. Objective Vitals Vital Signs Date Time Temp Pulse Resp B/P Pulse Ox O2 Delivery O2 Flow Rate FiO2 08/19/16 12:18 99.0 82 20 166/79 93 08/19/16 08:44 93 21 08/19/16 08:39 99.1 90 20 144/68 97 08/19/16 04:00 97.7 83 18 116/55 96 08/19/16 00:13 18 08/19/16 00:00 97.7 96 18 166/71 95 08/18/16 20:00 97.8 99 18 176/70 93 I/O 08/18/16 08/18/16 08/18/16 08/19/16 08/19/16 08/19/16 07:00 15:00 23:00 07:00 15:00 23:00 Intake Total 300 ml 360 ml Output Total 3000 ml Balance 300 ml 360 ml -3000 ml Intake Oral 300 ml 360 ml Hemodialysis 3000 ml # Voids 1 5 # Bowel Movements 1 1 Result Diagram: 08/19/1618 08/19/16 0618 Objective Remarks GENERAL: Well-nourished, well-developed male patient. SKIN: Warm and dry. Right axilla dry with no active lesions. Left axilla dry however the posterior scapula with dressing, also dressing lue lateral arm. HEAD: Normocephalic. EYES: No scleral icterus. No injection or drainage. NECK: Supple, trachea midline. No JVD or lymphadenopathy. CARDIOVASCULAR: Regular rate and rhythm without murmurs, gallops, or rubs. RESPIRATORY: Breath sounds equal bilaterally. No accessory muscle use. GASTROINTESTINAL: Abdomen soft, non-tender, nondistended. EXTREMITIES: No cyanosis, or edema. NEUROLOGICAL: Awake, alert, and oriented x 3. Non-focal. Procedures LP A/P Assessment and Plan Encephalopathy/ Headache - likely hypertensive encephloaphty With left sided weakness. The pt presented as stroke alert. He presented with severely elevated BPs 230/208. Appreciate ID and neurology input. MRI brain with mild periventricular chronic white matter ischemic changes with slight progression since 2012, doppler carotid neg, mra brain neg. LP with slightly elevated protein. Follow CSF LEEANNE virus, CSF VDRL per ID. EEG with generalized slowing. Improving. Psych consult appreciated. Repeat head CT 08/13 without acute process. Headache improved. Left sided, likely a migraine. Improved with prochlorperazine. - neuro checks. - Continue blood pressure control. Improved. Patient encouraged to check BP daily and keep record for Dr. Richardson (his neprhologist). - continue Remeron per psych. - Ativan for anxiety. -Sleep study as OP - antibiotics per ID. On vanco with dialysis to continue for several more weeks. I discussed with Dr. Small previously - PT/ OT. Encouraged patient to be compliant with PT. - Prochlorperazine and Fioricet as needed. Respiratory failure The pt had apnea events. Also some evidence of pulmonary edema. On room air but desaturated on walk test again today. V/Q scan negative for acute disease. CXR unremarkable. - volume management with dialysis. - oxygen as needed. - standing nebs. - pulmonology consult appreciated. Discussed with Dr. Hodgson previously- patient will follow-up with him for sleep study test and PFTs. -Arrange home oxygen. -Sleep study as outpatient (pt is claustrophobic however I d/w with him if he does have DEANNA he can discuss nasal pillow CPAP) Hidradenitis suppurative with Left axillary cellulitis and AV fistula site cellulitis.improved. on vanc IV per ID in HD for 2 more weeks. d/w ID Mild to moderate mitral stenosis seen on 2d echo. F/u with cardiology. Hypertensive emergency With elevated troponin. Appreciate cardiology consult. Off of nicardipine drip. Blood pressure improved. - continue losartan, carvedilol, hydralazine and Procardia. - ASA. - hydralazine and labetalol prn. Abdominal pain Located in the right upper quadrant. Recent CT abdomen w/o contrast showed complex right renal cyst among other findings. LFTs unremarkable. Now with nausea and vomiting. RUQ US with abnormal gallbladder. GI consult appreciated. HIDA scan unremarkable. Improved 08/16. - pain control and antiemetics as needed. - follow-up with GI. Continue bethanechol, promethazine as needed. End-stage renal disease On hemodialysis. - dialysis per nephrology. Diabetes mellitus A1c 6.2%. Glucose well controlled 08/15. - SSI for glycemic control. Prophylaxis: PPI/SCDs/subcutaneous heparin. Discharge Planning DC home after abx and after home O2 is arranged. Jazmine Díaz MD Aug 19, 2016 19:27
--- NOTE | 2016-08-19 20:41 | HHI.NPPN ---
Subjective History of Present Illness 45-year-old male with past medical history of hypertension, cerebrovascular accident, history of chronic anemia who came to the hospital with altered mental status and confusion. I have seen the patient before in the past. He has now been following with Dr. Richardson and getting hemodialysis at [facility] in [facility] on Tuesday, and Tuesday. Additional Remarks Patient is alert, doing better, now on room air. Review of Systems General Constitutional: Fatigue Respiratory Lungs: SOB, Cough Cardiovascular Cardiac: PAZ Objective Data Data 08/18/16 08/19/16 19:00 07:00 Intake Total 360 ml Balance 360 ml Intake Oral 360 ml # Voids 3 2 Vital Signs Date Time Temp Pulse Resp B/P Pulse Ox O2 Delivery O2 Flow Rate FiO2 08/19/16 19:35 95 21 08/19/16 12:18 99.0 82 20 166/79 93 08/19/16 08:44 93 21 08/19/16 08:39 99.1 90 20 144/68 97 08/19/16 04:00 97.7 83 18 116/55 96 08/19/16 00:13 18 08/19/16 00:00 97.7 96 18 166/71 95 -: 08/19/16 0618 08/19/16 0618 Physical Exam General Appearance: Well Nourished, Anxious Throat Throat Exam: Oral Mucosa [place] & Moist Neck Neck Exam: Neck Supple Pulmonary Resp Exam: Crackles, Rhonchi, Decreased Bases, Diminished Breath Sounds Cardiology CV Exam: Regular, Normal Sinus Rhythm Gastrointestinal/Abdomen GI Exam: Soft, Non-Tender, Bowel Sounds Present Extremeties Extremities Exam: Trace Edema Neurologic Neuro Exam: Alert, Awake Psychiatric Psych Exam: Appropriate Responses Assessment/Plan Assessment Summary: Fluid/Volume Overload, Hypertension, End Stage Renal Disease Problem List: (1) Hypertension, accelerated (2) Hyperkalemia (3) Diabetes (4) SOB (shortness of breath) (5) Altered mental status (6) ESRD (end stage renal disease) on dialysis Plan BP is better , off Nicardipine. Hgb. is low but stable, on Epogen. Continue HD TTS for now. BP is stable. U/S Gall Bladder noted, seen by GI. HIDA scan negative. CXR and V/Q scan noted. Seen by pulmonary, possible DEANNA. Will need sleep study as out patient. HD done and 3 liters removed. Continue antibiotics, and will need out patient O2. Problem Qualifiers (1) Diabetes: (2) Altered mental status: Qualified Code: R41.0 - Disorientation Teresita Carroll MD Aug 19, 2016 20:41
[2016-08-19] MEDS: ACETAMIN 325 MG/BUTALBITAL 50 MG/CAFFEINE 40 MG TAB PO PRN (22:26)
[2016-08-19] MEDS: LOSARTAN 50 MG TAB PO SCH (22:26)
[2016-08-19] MEDS: MIRTAZAPINE 15 MG TAB PO SCH (22:27)
[2016-08-19 23:52] LABS: WEST NILE IGM <0.90 (())
[2016-08-20] VITALS: BP 129/59; PULSE 88; RESP 18; TEMP 99.3; O2SAT 96
[2016-08-20] MEDS: HYDROmorphone HCL PF 1 MG/ML VIAL IV PUSH PRN ×5 (00:34→22:33)
[2016-08-20 04:00] VITALS: BP 126/61; PULSE 88; RESP 18; TEMP 99; O2SAT 96
[2016-08-20] MEDS: CHLORHEXIDINE GLUCONATE 2 % 1 PACK (2 CLOTHS) TOP SCH (04:00)
[2016-08-20] MEDS: INSULIN ASPART SUPPLEMENTAL SCALE SQ SCH ×4 (06:00→18:00)
[2016-08-20] MEDS: metroNIDAZOLE 500 MG TAB PO SCH ×3 (06:12→22:24)
[2016-08-20] MEDS: NIFEdipine 20 MG CAP PO SCH ×3 (06:12→22:24)
[2016-08-20] MEDS: RESP: ALBUTEROL 2.5 MG/IPRATROPIUM 0.5 MG NEB (SCH) NEB ×2 (07:35→13:10)
[2016-08-20 07:37] VITALS: O2SAT 96
[2016-08-20 08:47] VITALS: BP 143/65; PULSE 92; RESP 20; TEMP 99.6; O2SAT 93
[2016-08-20] MEDS: FINASTERIDE 5 MG TAB PO SCH (09:33)
[2016-08-20] MEDS: SEVELAMER CARBONATE 800 MG TAB PO SCH ×3 (09:33→17:00)
[2016-08-20] MEDS: PANTOPRAZOLE SOD 40 MG DELAYED RELEASE TAB PO SCH (09:33)
[2016-08-20] MEDS: hydrALAZINE HCL 50 MG TAB PO SCH ×3 (09:33→18:37)
[2016-08-20] MEDS: CARVEDILOL 12.5 MG TAB PO SCH ×2 (09:33→22:24)
[2016-08-20] MEDS: VITAMIN B CMPLX/VITC/FOLIC AC CAP PO SCH (09:33)
[2016-08-20] MEDS: CLOTRIMAZOLE 1% CREAM 15 GM TOPICAL SCH ×2 (09:34→22:26)
[2016-08-20] MEDS: LEVOFLOXACIN 500 MG TAB PO SCH (12:15)
[2016-08-20] MEDS: SODIUM CHLORIDE 0.9% FLUSH 5 ML FLUSH IV FLUSH SCH ×2 (12:17→22:25)
[2016-08-20 12:41] VITALS: BP 137/65; PULSE 84; RESP 20; TEMP 99.6; O2SAT 95
--- NOTE | 2016-08-20 15:17 | HHI.PR ---
Subjective Remarks Patient states headache is improved. No other complaints. Objective Vitals Vital Signs Date Time Temp Pulse Resp B/P Pulse Ox O2 Delivery O2 Flow Rate FiO2 08/20/16 12:41 99.6 84 20 137/65 95 08/20/16 08:47 99.6 92 20 143/65 93 08/20/16 07:37 96 Nasal Cannula 21 08/20/16 04:00 99.0 88 18 126/61 96 08/20/16 01:04 18 08/20/16 00:00 99.3 88 18 129/59 96 08/19/16 23:47 18 08/19/16 20:00 99.5 98 18 148/72 98 08/19/16 19:35 95 21 I/O 08/19/16 08/19/16 08/19/16 08/20/16 08/20/16 08/20/16 07:00 15:00 23:00 07:00 15:00 23:00 Intake Total 480 ml 240 ml Output Total 3000 ml Balance -2520 ml 240 ml Intake Oral 480 ml 240 ml Hemodialysis 3000 ml # Voids 2 2 # Bowel Movements 1 Result Diagram: 08/19/1661708/19/1618 Objective Remarks GENERAL: Well-nourished, well-developed male patient. SKIN: Warm and dry. Right axilla dry with no active lesions. Left axilla dry however the posterior scapula with dressing, also dressing lue lateral arm. HEAD: Normocephalic. EYES: No scleral icterus. No injection or drainage. NECK: Supple, trachea midline. No JVD or lymphadenopathy. CARDIOVASCULAR: Regular rate and rhythm without murmurs, gallops, or rubs. RESPIRATORY: Breath sounds equal bilaterally. No accessory muscle use. GASTROINTESTINAL: Abdomen soft, non-tender, nondistended. EXTREMITIES: No cyanosis, or edema. NEUROLOGICAL: Awake, alert, and oriented x 3. Non-focal. Procedures LP A/P Assessment and Plan Encephalopathy/ Headache - likely hypertensive encephloaphty With left sided weakness. The pt presented as stroke alert. He presented with severely elevated BPs 230/208. Appreciate ID and neurology input. MRI brain with mild periventricular chronic white matter ischemic changes with slight progression since 2012, doppler carotid neg, mra brain neg. LP with slightly elevated protein. Follow CSF LEEANNE virus, CSF VDRL per ID. EEG with generalized slowing. Improving. Psych consult appreciated. Repeat head CT 08/13 without acute process. Headache improved. Left sided, likely a migraine. Improved with prochlorperazine. - neuro checks. - Continue blood pressure control. Improved. Patient encouraged to check BP daily and keep record for Dr. Richardson (his neprhologist). - continue Remeron per psych. - Ativan for anxiety. -Sleep study as OP - antibiotics per ID. On vanco with dialysis to continue for several more weeks. I discussed with Dr. Small previously - PT/ OT. Encouraged patient to be compliant with PT. - Prochlorperazine and Fioricet as needed. Respiratory failure The pt had apnea events. Also some evidence of pulmonary edema. On room air but desaturated on walk test again today. V/Q scan negative for acute disease. CXR unremarkable. - volume management with dialysis. - oxygen as needed. - standing nebs. - pulmonology consult appreciated. Discussed with Dr. Hodgson previously- patient will follow-up with him for sleep study test and PFTs. -Arrange home oxygen. -Sleep study as outpatient (pt is claustrophobic however I d/w with him if he does have DEANNA he can discuss nasal pillow CPAP) Hidradenitis suppurative with Left axillary cellulitis and AV fistula site cellulitis.improved. on vanc IV per ID in HD for 2 more weeks. d/w ID Mild to moderate mitral stenosis seen on 2d echo. F/u with cardiology. Hypertensive emergency With elevated troponin. Appreciate cardiology consult. Off of nicardipine drip. Blood pressure improved. - continue losartan, carvedilol, hydralazine and Procardia. - ASA. - hydralazine and labetalol prn. Abdominal pain Located in the right upper quadrant. Recent CT abdomen w/o contrast showed complex right renal cyst among other findings. LFTs unremarkable. Now with nausea and vomiting. RUQ US with abnormal gallbladder. GI consult appreciated. HIDA scan unremarkable. Improved 08/16. - pain control and antiemetics as needed. - follow-up with GI. Continue bethanechol, promethazine as needed. End-stage renal disease On hemodialysis. - dialysis per nephrology. Mild hyperkalemia - recheck BMP a.m. Anemia, chronic - receiving iron sucrose will repeat CBC in a.m. Diabetes mellitus A1c 6.2%. Glucose well controlled 08/15. - SSI for glycemic control. Prophylaxis: PPI/SCDs/subcutaneous heparin. Discharge Planning DC home after abx and after home O2 is arranged. Awaiting [facility] to approve. D/w RUPINDER, D/w Dr. agustin. Jazmine Díaz MD Aug 20, 2016 15:17
--- NOTE | 2016-08-20 16:18 | HHI.PR ---
Subjective Remarks 45 YOAA male with HTN,DM,ESRD, on Hd Denies sob feels tired Nausea improved No new complaint Ambulates Objective Vital Signs Vital Signs Date Time Temp Pulse Resp B/P Pulse Ox O2 Delivery O2 Flow Rate FiO2 08/20/16 12:41 99.6 84 20 137/65 95 08/20/16 08:47 99.6 92 20 143/65 93 08/20/16 07:37 96 Nasal Cannula 21 08/20/16 04:00 99.0 88 18 126/61 96 08/20/16 01:04 18 08/20/16 00:00 99.3 88 18 129/59 96 08/19/16 23:47 18 08/19/16 20:00 99.5 98 18 148/72 98 08/19/16 19:35 95 21 I/O 08/19/16 08/19/16 08/19/16 08/20/16 08/20/16 08/20/16 07:00 15:00 23:00 07:00 15:00 23:00 Intake Total 480 ml 240 ml Output Total 3000 ml Balance -2520 ml 240 ml Intake Oral 480 ml 240 ml Hemodialysis 3000 ml # Voids 2 2 # Bowel Movements 1 Result Diagram: 08/19/1661708/19/16617 Objective Remarks GENERAL: WBWN Male,NAD SKIN: Warm and dry. HEAD: Normocephalic. EYES: No scleral icterus. No injection or drainage. NECK: Supple, trachea midline. No JVD or lymphadenopathy. CARDIOVASCULAR: Regular rate and rhythm without murmurs, gallops, or rubs. RESPIRATORY: Breath sounds equal bilaterally. No accessory muscle use. GASTROINTESTINAL: Abdomen soft, non-tender, nondistended. MUSCULOSKELETAL: No cyanosis, or edema. BACK: Nontender without obvious deformity. No CVA tenderness. A/P Assessment and Plan Symtoms suggestive of DEANNA HTN ESRD hypoxia resolved PLAN: Stable on RA Sleep study as out pt HD PFT and Sleep study as out patient Stable from pulm standpoint Will FU in office Jakub Hodgson MD Aug 20, 2016 16:18
[2016-08-20 16:57] VITALS: BP 142/66; PULSE 101; RESP 20; TEMP 98.3; O2SAT 98
--- NOTE | 2016-08-20 18:06 | HHI.DS ---
Discharge Summary Admission Date Aug 08, 2016 at 20:22 Discharge Date: Aug 26, 2016 Admitting Diagnosis CVA (1) DEANNA (obstructive sleep apnea) ICD Code: G47.33 (2) Anemia due to chronic kidney disease ICD Code: D63.1 (3) Hydradenitis ICD Code: L73.2 (4) Cellulitis of arm, left ICD Code: L03.114 (5) Mitral valve stenosis ICD Code: I05.0 (6) Hypertensive encephalopathy ICD Code: I67.4 (7) Migraine ICD Code: G43.909 (8) Adjustment disorder with mixed anxiety and depressed mood ICD Code: F43.23 (9) ESRD (end stage renal disease) on dialysis ICD Code: N18.6 (10) Hypertension, accelerated ICD Code: I10 (11) SOB (shortness of breath) ICD Code: R06.02 (12) Pulmonary edema ICD Code: J81.1 Procedures LP Brief History - From Admission History of Present Illness HPI Patient is a 45 year old male who presents to ER for evaluation of acute cva. As per EMS, patient arrived at their station with complaints of confusion and alerted mental status. Reports that all the information they could obtain from him was that he was a dialysis patient. Reports that upon arrival to ER at 6: 48 PM, patient began to have left sided facial droop with left sided arm weakness. Patient is not able to provide history of present illness this time. patient does have a left sided av fistula. After patient returns to the ER, reports that his left arm began to hurt him after EMS lifted him onto the stretcher. Reports that he has been having increased pain to his left arm possibly from being moved. Reports that he was driving his car today - unsure where he was going but reports that he felt sick so he pulled his car over. Reports that he felt nauseous and sick to his stomach , reports that he did ask a bystander for help and was told to drive to the nearest police station around the corner. Patient reports that when he arrived there, he was confused and was having generalized weakness as well as abdominal pain. Patient was evaluated in the ER, stroke alert was called and Dr. Caldwell from ER discussed the case with neurology Dr. Velazquez. Head CT was negative for bleed. Patient was noted to have systolic blood pressure to 20s. He had barely discernible left upper extremity weakness which was also felt to be secondary to pain on that side. Decision was made not to administer TPA as the diagnosis of stroke was not certain. Patient was confused with elevated blood pressure and was initiated on a nicardipine drip. He underwent a CT of the chest abdomen pelvis as he was also complaining of abdominal pain and left-sided chest wall pain with question of infiltrates on his chest x-ray. He did not have any fever or leukocytosis. Patient was accepted for admission by critical care medicine service. When I evaluated the patient he was laying in the ER stretcher. He knew his name however did not remember any further details regarding him being on dialysis or where he lived or what his medical problems were. PFSH Past Medical History Anemia: Yes Arthritis: No Autoimmune Disease: No Blood Disorders: No Anxiety: Yes Depression: Yes Heart Rhythm Problems: Yes (TACHYCARDIA) Cancer: No Cardiac Catheterization: No Cardiovascular Problems: Yes High Cholesterol: No Chemotherapy: No Chest Pain: Yes Congestive Heart Failure: No COPD: No Cerebrovascular Accident: No Diabetes: Yes Dialysis: Yes (M W F) Diminished Hearing: No Endocrine: Yes Gastrointestinal Disorders: Yes (GASTROPARESIS) GERD: No Glaucoma: No Genitourinary: Yes Headaches: Yes Hepatitis: No Hiatal Hernia: No Hypertension: Yes Immune Disorder: No Implanted Vascular Access Dvce: Yes (PORT) Kidney Stones: No Musculoskeletal: Yes Neurologic: Yes (NEUROPATHY IN LEGS) Psychiatric: Yes Reproductive: No Respiratory: No Immunizations Current: Yes Myocardial Infarction: No Radiation Therapy: No Renal Failure: Yes Seizures: Yes Sickle Cell Disease: Yes (PT HAS STATED HE HAS THE "TRAIT") Sleep Apnea: No Thyroid Disease: No Ulcer: No PNEUMOCCOCAL Vaccine (Year): 1 Past Surgical History Abdominal Surgery: Yes (multiple surgeries due to poor sweat glands) AICD: No Arteriovenous Shunt: No (LEFT UPPER ARM FISTULA) Body Medical Devices: left arm fistula; right chest port Cardiac Surgery: No Coronary Artery Bypass Graft: No Ear Surgery: No Endocrine Surgery: No Eye Surgery: No Genitourinary Surgery: Yes (TENKCHOFF TUBE FOR PD ) Gynecologic Surgery: No Insulin Pump: No Joint Replacement: No Oral Surgery: No Pacemaker: No Thoracic Surgery: No Other Surgery: Yes (FISTULA UPPER LEFT ARM) HYDRADENITIS Social History Alcohol Use: No Tobacco Use: No Substance Use: No Allergies-Medications (Allergen,Severity, Reaction): Coded Allergies: Contrast Media (Unverified Allergy, Severe, nausea/vomiting, 08/08/16) causes n/v HAD TEST TODAY 11/15/11 TOOK BENADRYL AND DID OK. Reglan (Verified Allergy, Severe, ANXIETY, 08/08/16) Seafood (Verified Allergy, Severe, SWELLING-CANT BREATH-HIVES, 08/08/16) Reported Meds & Prescriptions Reported Meds & Active Scripts Active Erythromycin Base 250 Mg Tab 250 Mg PO TIDAC Phenergan (Promethazine HCl) 25 Mg Tab 25 Mg PO Q6H PRN Zofran Odt (Ondansetron Odt) 4 Mg Tab 4 Mg SL Q6HR PRN Ativan (Lorazepam) 1 Mg Tab 1 Mg PO Q6H PRN Lortab (Hydrocodone-Acetaminophen) 5-325 Mg Tab 1-2 Tab PO Q6H PRN Bactrim DS (Sulfamethoxazole-Trimethoprim) 800-160 Mg Tab 1 Tab PO BID Reported Nephro-Adan Rx (Vitamin B Cmplx/Vit C/Folic AC) 1 Tab 1 Tab PO Novolin 70-30 Inj (Insulin Human Isoph/Insulin Regular) 1,000 Unit/10 Ml Vial 1 Units SQ Losartan (Losartan Potassium) 100 Mg Tab 100 Mg PO HS Hydralazine (Hydralazine HCl) 50 Mg Tab 50 Mg PO TID Take with a meal Finasteride 5 Mg Tab 5 Mg PO DAILY Do not crush. Doxepin (Doxepin HCl) 100 Mg Cap 100 Mg PO HS Carvedilol 12.5 Mg Tab 12.5 Mg PO BID Calcium Acetate (Calcium Acetate (Phosphate Bin) 667 Mg Cap Review of Systems General / Constitutional: No: Fever Eyes: No: Visual changes HENT: No: Headaches Cardiovascular: No: Chest Pain or Discomfort Respiratory: No: Shortness of Breath Gastrointestinal: No: Abdominal Pain Genitourinary: No: Dysuria Musculoskeletal: No: Pain Skin: No Rash Neurologic: Positive: Weakness, Dizziness, Coordination Problem Psychiatric: No: Depression Endocrine: No: Polydipsia Hematologic/Lymphatic: No: Easy Bruising CBC/BMP: 08/19/16 0618 08/19/16 0618 Significant Findings Laboratory Tests Test 08/18/16 08/19/16 12:40 06:18 White Blood Count 11.2 TH/MM3 (4.0-11.0) Red Blood Count 2.96 MIL/MM3 2.73 MIL/MM3 (4.50-5.90) (4.50-5.90) Hemoglobin 8.1 GM/DL 7.7 GM/DL (13.0-17.0) (13.0-17.0) Hematocrit 25.5 % 23.3 % (39.0-51.0) (39.0-51.0) Mean Corpuscular Hemoglobin 31.5 % Concent (32.0-36.0) Red Cell Distribution Width 20.1 % 19.5 % (11.6-17.2) (11.6-17.2) Platelet Count 502 TH/MM3 454 TH/MM3 (150-450) (150-450) Neutrophils (%) (Auto) 79.3 % 78.4 % (16.0-70.0) (16.0-70.0) Lymphocytes (%) (Auto) 8.9 % 8.5 % (9.0-44.0) (9.0-44.0) Monocytes (%) (Auto) 8.7 % (0.0-8.0) 9.1 % (0.0-8.0) Neutrophils # (Auto) 8.9 TH/MM3 8.1 TH/MM3 (1.8-7.7) (1.8-7.7) Monocytes # (Auto) 1.0 TH/MM3 (0-0.9) Blood Urea Nitrogen 42 MG/DL (7-18) 45 MG/DL (7-18) Creatinine 10.18 MG/DL 11.27 MG/DL (0.60-1.30) (0.60-1.30) Estimat Glomerular Filtration 7 ML/MIN (>89) 6 ML/MIN (>89) Rate Random Glucose 124 MG/DL (74-106) Lymphocytes # (Auto) 0.9 TH/MM3 (1.0-4.8) Potassium Level 5.2 MEQ/L (3.5-5.1) Imaging Last Impressions Lung Scan-VQ Nuclear Medicine 08/16/16 0000 Signed Impressions: Service Date/Time: Tuesday, August 16, 2016 10:07 - CONCLUSION: No acute disease. Chico Zapien MD Chest X-Ray 08/16/16 0000 Signed Impressions: Service Date/Time: Tuesday, August 16, 2016 08:46 - CONCLUSION: 1. Right subclavian Tijatr-l-Pqpr catheter with the tip projecting over the central venous system. 2. No acute cardiopulmonary process. Prominent interstitial markings identified previously have resolved. No acute infiltrate or effusion. Prieto Ramírez MD Hepatobiliary Scan Nuclear Medicine 08/14/16 0000 Signed Impressions: Service Date/Time: Sunday, August 14, 2016 12:53 - CONCLUSION: No evidence of acute cholecystitis. No biliary tract obstruction. Lawrence Medel MD Head CT 08/13/16 0000 Signed Impressions: Service Date/Time: Saturday, August 13, 2016 13:42 - CONCLUSION: Negative for acute process. Bill Gotti MD FACR Gall Bladder Ultrasound 08/13/16 0000 Signed Impressions: Service Date/Time: Saturday, August 13, 2016 14:09 - CONCLUSION: Abnormal gallbladder. The patient is not tender over the gallbladder.. Bill Gotti MD FACR Upper Extremity CT 08/11/16 0000 Signed Impressions: Service Date/Time: Thursday, August 11, 2016 08:54 - CONCLUSION: Induration around an AV fistula without a focal abscess seen. Casimiro Zapata MD Head/Brain Mag Res Venography 08/11/16 0000 Signed Impressions: Service Date/Time: Thursday, August 11, 2016 12:59 - CONCLUSION: Dural sinus asymmetry which is likely developmental. No definite evidence of dural venous sinus thrombosis. Kiran Campbell MD Head Magnetic Resonance Angiography 08/11/16 0000 Signed Impressions: Service Date/Time: Thursday, August 11, 2016 12:59 - CONCLUSION: Normal examination. No evidence of vasculopathy. Kiran Campbell MD Upper Extremity Ultrasound 08/10/16 0000 Signed Impressions: Service Date/Time: Wednesday, August 10, 2016 09:54 - CONCLUSION: 1. AV fistula present. This is patent. There is some dilatation of the proximal aspect of the fistula. 2. Dilatation of the axillary vein with some very mild peripheral mural thrombus seen. Casimiro Zapata MD Lumbar Puncture Fluoroscopy 08/09/16 0000 Signed Impressions: Service Date/Time: Tuesday, August 09, 2016 12:45 - CONCLUSION: Uncomplicated fluoroscopically guided lumbar puncture. Opening pressure 26 cm H2O. Nemesio Badillo Jr., MD Abdomen/Pelvis CT 08/08/16 193 Signed Impressions: Service Date/Time: Monday, August 08, 2016 19:58 - CONCLUSION: 1. No obstruction or acute inflammatory changes are seen in the abdomen or pelvis. Normal appendix. 2. Complex cyst of the right kidney as described above. Further characterization with a contrast enhanced study is suggested when clinically feasible. 3. Small stones in a contracted gallbladder. No inflammatory changes. No ductal stone or ductal dilatation. 4. Areas of skin and subcutaneous induration, especially the right buttock and left inguinal regions. These are nonspecific. Also a potential pilonidal cyst. 5. Diffuse sclerosis of the visualized osseous structures typical of chronic renal disease. Possible small brown tumors of the right iliac bone. 6. There is a small fat containing hernia at the umbilicus. Casimiro Hair MD Chest CT 08/08/16 0000 Signed Impressions: Service Date/Time: Monday, August 08, 2016 19:58 - CONCLUSION: 1. Trace failure in the proper clinical setting. 2. Small pericardial effusion, nonspecific. 3. Coronary artery calcification. 4. Upper limits of normal axillary lymph nodes. 5. Bilateral gynecomastia. Casimiro Hair MD Brain MRI 08/08/16 0000 Signed Impressions: Service Date/Time: Monday, August 08, 2016 21:28 - CONCLUSION: 1. No acute infarct. Mild chronic white matter ischemic changes with slight progression since 2012. Vladimir Singer MD PE at Discharge GENERAL: Well-nourished, well-developed male patient. SKIN: Warm and dry. Right axilla dry with no active lesions. Left axilla dry however the posterior scapula with dressing, also dressing lue lateral arm. HEAD: Normocephalic. EYES: No scleral icterus. No injection or drainage. NECK: Supple, trachea midline. No JVD or lymphadenopathy. CARDIOVASCULAR: Regular rate and rhythm without murmurs, gallops, or rubs. RESPIRATORY: Breath sounds equal bilaterally. No accessory muscle use. GASTROINTESTINAL: Abdomen soft, non-tender, nondistended. EXTREMITIES: No cyanosis, or edema. NEUROLOGICAL: Awake, alert, and oriented x 3. Non-focal. Hospital Course Encephalopathy/ Headache - likely hypertensive encephloaphty With left sided weakness. The pt presented as stroke alert. He presented with severely elevated BPs 230/208. Appreciate ID and neurology input. MRI brain with mild periventricular chronic white matter ischemic changes with slight progression since 2012, doppler carotid neg, mra brain neg. LP with slightly elevated protein. Follow CSF LEEANNE virus, CSF VDRL per ID. EEG with generalized slowing. Improving. Psych consult appreciated. Repeat head CT 08/13 without acute process. Headache improved. Left sided, likely a migraine. Improved with prochlorperazine. - neuro checks. - Continue blood pressure control. Improved. Patient encouraged to check BP daily and keep record for Dr. Richardson (his neprhologist). - continue Remeron per psych. - Ativan for anxiety. -Sleep study as OP - antibiotics per ID. On vanco with dialysis to continue for several more weeks. I discussed with Dr. Small previously - PT/ OT. Encouraged patient to be compliant with PT. - Prochlorperazine and Fioricet as needed. Respiratory failure The pt had apnea events. Also some evidence of pulmonary edema. On room air but desaturated on walk test again today. V/Q scan negative for acute disease. CXR unremarkable. - volume management with dialysis. - oxygen as needed. - standing nebs. - pulmonology consult appreciated. Discussed with Dr. Hodgson previously- patient will follow-up with him for sleep study test and PFTs. -Arrange home oxygen. -Sleep study as outpatient (pt is claustrophobic however I d/w with him if he does have DEANNA he can discuss nasal pillow CPAP) Hidradenitis suppurative with Left axillary cellulitis and AV fistula site cellulitis.improved. on vanc IV per ID in HD for 2 more weeks. d/w ID Mild to moderate mitral stenosis seen on 2d echo. F/u with cardiology. Hypertensive emergency With elevated troponin. Appreciate cardiology consult. Off of nicardipine drip. Blood pressure improved. - continue losartan, carvedilol, hydralazine and Procardia. - ASA. - hydralazine and labetalol prn. Abdominal pain Located in the right upper quadrant. Recent CT abdomen w/o contrast showed complex right renal cyst among other findings. LFTs unremarkable. Now with nausea and vomiting. RUQ US with abnormal gallbladder. GI consult appreciated. HIDA scan unremarkable. Improved 08/16. - pain control and antiemetics as needed. - follow-up with GI. Continue bethanechol, promethazine as needed. End-stage renal disease On hemodialysis. - dialysis per nephrology. Mild hyperkalemia - resolved. Anemia, chronic - received iron sucrose. Diabetes mellitus A1c 6.2%. Glucose well controlled 08/15. - SSI for glycemic control. Patient discharged home today. Oxygen was delivered to dialysis center. Pt Condition on Discharge: Stable Discharge Disposition: Discharge Home Discharge Time: > 30 minutes Discharge Instructions DIET: Follow Instructions for: Diabetic Diet Activities you can perform: Regular-No Restrictions Follow up Referrals: Cardiology - 1 Month with Marshall Bruner DO Pulmonology - 1 Week with Jakub Hodgson MD New Medications: Clonidine (Clonidine) 0.1 Mg Tab 0.1 MG PO Q6HR PRN SYS BP GREATER THAN 160 MMHG #60 Ref 0 TAB Oxygen tank (Oxygen tank) 1 Ea Tank 2 LITER MICHAEL.CANZPower CONTINUOUS Oxygen Concentrator Portable Gaseous 2 L/min via Nasal Cannula Continuous For 99 months HYPOXEMIA PREVENTION #1 CYLINDER Vxuneoxgbw-Wfuexqpwcwbpt-Pxjxzzmx (Wihopktenm-Pldynkzlxownl-Ezvcqgdg) 50-325-40 Mg Tab 1 TAB PO Q6H PRN Headache #20 TAB Metronidazole (Flagyl) 500 Mg Tab 500 MG PO Q8HR Infection #2 TAB Mirtazapine (Mirtazapine) 15 Mg Tab 15 MG PO HS sleep #30 TAB Nifedipine (Nifedipine) 20 Mg Cap 20 MG PO Q8HR Blood Pressure Management #90 CAP Sevelamer Carbonate (Renvela) 800 Mg Tab 1600 MG PO TIDAC Electrolyte Replacement #90 TAB Continued Medications: Calcium Acetate (Phosphate Bin (Calcium Acetate) 667 Mg Cap Carvedilol (Carvedilol) 12.5 Mg Tab 12.5 MG PO BID #60 Ref 0 TAB Erythromycin Base (Erythromycin Base) 250 Mg Tab 250 MG PO TIDAC Infection #60 Ref 0 TAB Finasteride (Finasteride) 5 Mg Tab 5 MG PO DAILY Do not crush. Manage Prostate Problems #30 Ref 0 TAB Hydralazine (Hydralazine) 50 Mg Tab 50 MG PO TID Take with a meal Blood Pressure Management Ref 0 TAB Insulin Human Isophane-Regular 70-30 Inj (Novolin 70-30 Inj) 1,000 Unit/10 Ml Vial 1 UNITS SQ Blood Sugar Management Ref 0 ML Losartan (Losartan) 100 Mg Tab 100 MG PO HS Blood Pressure Management #30 Ref 0 TAB Ondansetron Odt (Zofran Odt) 4 Mg Tab 4 MG SL Q6HR PRN Nausea/Vomiting #60 Ref 0 TAB (This prescription has been renewed) Vitamin B Cmplx/Vit C/Folic AC (Nephro-Adan Rx) 1 Tab 1 TAB PO TAB Discontinued Medications: Doxepin (Doxepin) 100 Mg Cap 100 MG PO HS #30 Ref 0 CAP Lorazepam (Ativan) 1 Mg Tab 1 MG PO Q6H PRN ANXIETY AND/OR AGITATION #60 Ref 0 TAB Promethazine (Phenergan) 25 Mg Tab 25 MG PO Q6H PRN Nausea/Vomiting #60 Ref 0 TAB Sulfamethoxazole-Trimethoprim (Bactrim DS) 800-160 Mg Tab 1 TAB PO BID Infection #20 TAB Jazmine Díaz MD Aug 20, 2016 18:06
--- NOTE | 2016-08-20 20:08 | HHI.NPPN ---
Subjective History of Present Illness 45-year-old male with past medical history of hypertension, cerebrovascular accident, history of chronic anemia who came to the hospital with altered mental status and confusion. I have seen the patient before in the past. He has now been following with Dr. Richardson and getting hemodialysis at [facility] in [facility] on Tuesday, and Tuesday. Additional Remarks Patient is alert, doing better, now on room air, breathing is better. Review of Systems General Constitutional: Fatigue Respiratory Lungs: SOB, Cough Cardiovascular Cardiac: PAZ Objective Data Data 08/19/16 08/20/16 19:00 07:00 Intake Total 720 ml Output Total 3000 ml Balance -3000 ml 720 ml Intake Oral 720 ml Hemodialysis 3000 ml # Voids 4 # Bowel Movements 1 Vital Signs Date Time Temp Pulse Resp B/P Pulse Ox O2 Delivery O2 Flow Rate FiO2 08/20/16 16:57 98.3 101 20 142/66 98 08/20/16 12:41 99.6 84 20 137/65 95 08/20/16 08:47 99.6 92 20 143/65 93 08/20/16 07:37 96 Nasal Cannula 21 08/20/16 04:00 99.0 88 18 126/61 96 08/20/16 01:04 18 08/20/16 00:00 99.3 88 18 129/59 96 08/19/16 23:47 18 -: 08/19/16 0618 08/19/16 0618 Physical Exam General Appearance: Well Nourished, Anxious Throat Throat Exam: Oral Mucosa [place] & Moist Neck Neck Exam: Neck Supple Pulmonary Resp Exam: Crackles, Rhonchi, Decreased Bases, Diminished Breath Sounds Cardiology CV Exam: Regular, Normal Sinus Rhythm Gastrointestinal/Abdomen GI Exam: Soft, Non-Tender, Bowel Sounds Present Extremeties Extremities Exam: Trace Edema Neurologic Neuro Exam: Alert, Awake Psychiatric Psych Exam: Appropriate Responses Assessment/Plan Assessment Summary: Fluid/Volume Overload, Hypertension, End Stage Renal Disease Problem List: (1) Hypertension, accelerated (2) Hyperkalemia (3) Diabetes (4) SOB (shortness of breath) (5) Altered mental status (6) ESRD (end stage renal disease) on dialysis Plan BP is better , off Nicardipine. Hgb. is low but stable, on Epogen. Continue HD TTS for now. BP is stable. U/S Gall Bladder noted, seen by GI. HIDA scan negative. CXR and V/Q scan noted. Seen by pulmonary, possible DEANNA. Will need sleep study as out patient. Continue HD as schedule. Problem Qualifiers (1) Diabetes: (2) Altered mental status: Qualified Code: R41.0 - Disorientation Teresita Carroll MD Aug 20, 2016 20:08 Teresita Carroll MD Aug 20, 2016 20:08
[2016-08-20] MEDS: LOSARTAN 50 MG TAB PO SCH (22:24)
[2016-08-20] MEDS: MIRTAZAPINE 15 MG TAB PO SCH (22:24)
[2016-08-21 00:47] VITALS: BP 139/63; PULSE 98; RESP 17; TEMP 97.6; O2SAT 97
[2016-08-21] MEDS: CHLORHEXIDINE GLUCONATE 2 % 1 PACK (2 CLOTHS) TOP SCH (04:00)
[2016-08-21] MEDS: metroNIDAZOLE 500 MG TAB PO SCH (05:27)
[2016-08-21] MEDS: HYDROmorphone HCL PF 1 MG/ML VIAL IV PUSH PRN (05:27)
[2016-08-21] MEDS: INSULIN ASPART SUPPLEMENTAL SCALE SQ SCH ×2 (05:29)
[2016-08-21] MEDS: NIFEdipine 20 MG CAP PO SCH (05:30)
[2016-08-21 05:48] VITALS: BP 154/73; PULSE 86; RESP 17; TEMP 97.6; O2SAT 94
[2016-08-21 05:58] LABS: AUTOMATED NEUTROPHIL # 7.5 TH/MM3 (1.8-7.7); BASOPHIL # 0.1 TH/MM3 (0-0.2); EOSINOPHIL # 0.3 TH/MM3 (0-0.4); EOSINOPHIL % 3.1 % (0.0-4.0); HEMATOCRIT 23.9 % (39.0-51.0); HEMO FLAGS DIFF FINAL; LYMPHOCYTE # 1.2 TH/MM3 (1.0-4.8); MEAN CELL VOLUME 85.6 FL (80.0-100.0); MEAN CORPUSCULAR HEMOGLOBIN 28.1 PG (27.0-34.0); MEAN CORPUSCULAR HGB CONC 32.8 % (32.0-36.0); MONO % 11.6 % (0.0-8.0); NEUT % 72.3 % (16.0-70.0); PLATELET COUNT 503 TH/MM3 (150-450); RED CELL DISTRIBUTION WIDTH 20.3 % (11.6-17.2); WHITE BLOOD COUNT 10.3 TH/MM3 (4.0-11.0)
[2016-08-21 06:32] LABS: BICARBONATE 26.4 MEQ/L (21.0-32.0); POTASSIUM 5.1 MEQ/L (3.5-5.1)
[2016-08-21] MEDS: VITAMIN B CMPLX/VITC/FOLIC AC CAP PO SCH (08:32)
[2016-08-21] MEDS: SEVELAMER CARBONATE 800 MG TAB PO SCH (08:32)
[2016-08-21] MEDS: FINASTERIDE 5 MG TAB PO SCH (08:32)
[2016-08-21 08:33] VITALS: BP 140/66; PULSE 91; RESP 18; TEMP 99.8; O2SAT 96
[2016-08-21] MEDS: PANTOPRAZOLE SOD 40 MG DELAYED RELEASE TAB PO SCH (08:33)
[2016-08-21] MEDS: LORazepam 0.5 MG TAB PO PRN (08:33)
[2016-08-21] MEDS: hydrALAZINE HCL 50 MG TAB PO SCH (08:33)
[2016-08-21] MEDS: SODIUM CHLORIDE 0.9% FLUSH 5 ML FLUSH IV FLUSH SCH (08:33)
[2016-08-21] MEDS: CARVEDILOL 12.5 MG TAB PO SCH (08:33)
[2016-08-21] MEDS: CLOTRIMAZOLE 1% CREAM 15 GM TOPICAL SCH (08:34)
[2016-08-21] MEDS ORDERED: ZOFR4TAB3 SL (09:40)
[2016-08-21] MEDS ORDERED: BUTATAB6 PO (09:40)
[2016-08-21] MEDS ORDERED: MIRTA15 PO (09:40)
[2016-08-21] MEDS ORDERED: CLON0.1T PO (09:40)
[2016-08-21] MEDS ORDERED: METR-1 PO (09:40)
[2016-08-21] MEDS ORDERED: SEVEL800 PO (09:40)
[2016-08-21] MEDS ORDERED: LORA-392 PO (09:40)
[2016-08-21] MEDS ORDERED: NIFE20 PO (09:40)
--- NOTE | 2016-08-21 09:54 | HHI.DCPOC ---
Discharge Care Plan Diagnosis: (1) Mitral valve stenosis (2) DEANNA (obstructive sleep apnea) (3) Pulmonary edema (4) ESRD (end stage renal disease) on dialysis (5) Hypertensive emergency (6) Anemia due to chronic kidney disease (7) Hydradenitis (8) Hyperkalemia (9) Altered mental status Goals to Promote Your Health * To prevent worsening of your condition and complications * To maintain your health at the optimal level Directions to Meet Your Goals FOLLOWUP DIRECTIONS FROM DR. RICHARDSON 1. FOLLOWUP AT DIALYSIS CLINIC WITH DR. DE LOS SANTOS 2. TAKE YOUR BLOOD PRESSURE MEDICATIONS PRESCRIBED. CHECK YOUR BLOOD PRESSURE AT LEAST DAILY, KEEP A LIST OF THE READINGS TO BRING TO DR. DE LOS SANTOS. IT IS SUSPECTED THAT YOU BECAME CONFUSED DUE TO SEVERELY ELEVATED BLOOD PRESSURE (HYPERTENSIVE EMERGENCY). 3. YOUR DOCTORS SUSPECT YOU MAY HAVE SLEEP APNEA. UNTREATED SLEEP APNEA CAN LEAD TO UNCONTROLLED OR TREATMENT RESISTENT HIGH BLOOD PRESSURE. FOLLOW UP WITH PULMONOLOGY DR. SAN FOR A SLEEP STUDY TEST. CALL DR. SAN'S OFFICE ON TUESDAY TO MAKE AN APPOINTMENT. 4. YOUR OXYGEN LEVEL BECOMES LOW DURING EXERTION. USE YOUR PORTABLE OXYGEN TANK WHEN WALKING UNTIL FOLLOWUP WITH DR. SAN. 5. DO NOT DRIVE WHILE TAKING MEDICATIONS THAT CAN CAUSE SLEEPINESS (SUCH ATIVAN/LORAZEPAM, OR LORTAB (HYDROCODONE) 6. YOU HAVE A NARROW MITRAL HEART VALVE - THIS NEEDS TO BE FOLLOWED UP BY A AUGER SUPERVISOR. FOLLOWUP WITH DR. LOMELI WITHIN 1 MONTH FOR THIS. CALL TO MAKE YOUR APPOINTMENT. Take your medications as prescribed Follow your dietary instruction Follow activity as directed Keep your appointments as scheduled Take your immunizations and boosters as scheduled If your symptoms worsen call your PCP, if no PCP go to Urgent Care Center or Emergency Room Smoking is Dangerous to Your Health. Avoid second hand smoke Call the 24-hour hour crisis hotline for domestic abuse at Jazmine Richardson MD Aug 21, 2016 09:54
--- NOTE | 2016-08-21 10:00 | HHI.PR ---
Objective Vitals Vital Signs Date Time Temp Pulse Resp B/P Pulse Ox O2 Delivery O2 Flow Rate FiO2 08/21/16 08:33 99.8 91 18 140/66 96 08/21/16 05:57 19 08/21/16 05:48 97.6 86 17 154/73 94 08/21/16 00:47 97.6 98 17 139/63 97 08/20/16 16:57 98.3 101 20 142/66 98 08/20/16 12:41 99.6 84 20 137/65 95 I/O 08/20/16 08/20/16 08/20/16 08/21/16 08/21/16 08/21/16 07:00 15:00 23:00 07:00 15:00 23:00 Intake Total 240 ml 1200 ml 120 ml Balance 240 ml 1200 ml 120 ml Intake Oral 240 ml 1200 ml 120 ml # Voids 2 1 2 Result Diagram: 08/21/16 0544 08/21/16 0544 Objective Remarks GENERAL: Well-nourished, well-developed male patient. SKIN: Warm and dry. Right axilla dry with no active lesions. Left axilla dry however the posterior scapula with dressing, also dressing lue lateral arm. HEAD: Normocephalic. EYES: No scleral icterus. No injection or drainage. NECK: Supple, trachea midline. No JVD or lymphadenopathy. CARDIOVASCULAR: Regular rate and rhythm without murmurs, gallops, or rubs. RESPIRATORY: Breath sounds equal bilaterally. No accessory muscle use. GASTROINTESTINAL: Abdomen soft, non-tender, nondistended. EXTREMITIES: No cyanosis, or edema. NEUROLOGICAL: Awake, alert, and oriented x 3. Non-focal. Procedures LP A/P Problem List: (1) Anemia due to chronic kidney disease ICD Code: D63.1 Status: Acute (2) DEANNA (obstructive sleep apnea) ICD Code: G47.33 Status: Acute (3) Hydradenitis ICD Code: L73.2 Status: Chronic (4) Mitral valve stenosis ICD Code: I05.0 Status: Acute (5) Cellulitis of arm, left ICD Code: L03.114 Status: Acute (6) Pulmonary edema ICD Code: J81.1 Status: Acute (7) Migraine ICD Code: G43.909 Status: Acute (8) Hypertensive encephalopathy ICD Code: I67.4 Status: Acute (9) Adjustment disorder with mixed anxiety and depressed mood ICD Code: F43.23 Status: Acute (10) ESRD (end stage renal disease) on dialysis ICD Code: N18.6 Status: Chronic (11) Diabetes ICD Code: E11.9 Status: Chronic (12) Hyperkalemia ICD Code: E87.5 Status: Resolved (13) Altered mental status ICD Code: R41.82 Status: Acute Assessment and Plan Encephalopathy/ Headache - likely hypertensive encephloaphty With left sided weakness. The pt presented as stroke alert. He presented with severely elevated BPs 230/208. Appreciate ID and neurology input. MRI brain with mild periventricular chronic white matter ischemic changes with slight progression since 2012, doppler carotid neg, mra brain neg. LP with slightly elevated protein. Follow CSF LEEANNE virus, CSF VDRL per ID. EEG with generalized slowing. Improving. Psych consult appreciated. Repeat head CT 08/13 without acute process. Headache improved. Left sided, likely a migraine. Improved with prochlorperazine. - neuro checks. - Continue blood pressure control. Improved. Patient encouraged to check BP daily and keep record for Dr. Richardson (his neprhologist). - continue Remeron per psych. - Ativan for anxiety. -Sleep study as OP - antibiotics per ID. On vanco with dialysis to continue for several more weeks. I discussed with Dr. Small previously - PT/ OT. Encouraged patient to be compliant with PT. - Prochlorperazine and Fioricet as needed. Respiratory failure The pt had apnea events. Also some evidence of pulmonary edema. On room air but desaturated on walk test again today. V/Q scan negative for acute disease. CXR unremarkable. - volume management with dialysis. - oxygen as needed. - standing nebs. - pulmonology consult appreciated. Discussed with Dr. Hodgson previously- patient will follow-up with him for sleep study test and PFTs. -Arrange home oxygen. -Sleep study as outpatient (pt is claustrophobic however I d/w with him if he does have DEANNA he can discuss nasal pillow CPAP) Hidradenitis suppurative with Left axillary cellulitis and AV fistula site cellulitis.improved. on vanc IV per ID in HD for 2 more weeks. d/w ID Mild to moderate mitral stenosis seen on 2d echo. F/u with cardiology. Hypertensive emergency With elevated troponin. Appreciate cardiology consult. Off of nicardipine drip. Blood pressure improved. - continue losartan, carvedilol, hydralazine and Procardia. - ASA. - hydralazine and labetalol prn. Abdominal pain Located in the right upper quadrant. Recent CT abdomen w/o contrast showed complex right renal cyst among other findings. LFTs unremarkable. Now with nausea and vomiting. RUQ US with abnormal gallbladder. GI consult appreciated. HIDA scan unremarkable. Improved 08/16. - pain control and antiemetics as needed. - follow-up with GI. Continue bethanechol, promethazine as needed. End-stage renal disease On hemodialysis. - dialysis per nephrology. Mild hyperkalemia - recheck BMP a.m. Anemia, chronic - receiving iron sucrose will repeat CBC in a.m. Diabetes mellitus A1c 6.2%. Glucose well controlled 08/15. - SSI for glycemic control. Prophylaxis: PPI/SCDs/subcutaneous heparin. Discharge Planning DC home after abx and after home O2 is arranged. Awaiting [facility] to approve. D/w CM, D/w Dr. agustin. Problem Qualifiers (1) Diabetes: (2) Altered mental status: Qualified Code: R41.0 - Disorientation Jazmine Díaz MD Aug 21, 2016 09:59
== END 2016-08-21 11:08 | disposition home or self-care (01) | DRG 77 ==
LOC: NEPC 18:48 → NEDA 20:22 → HIMN 23:30 → N05A 08-14 17:01
PROVIDERS: ADMIT Family Medicine; ATTEND Family Medicine
PROC: 009U3ZX Drainage of Spinal Canal, Percutaneous Approach, Diagnostic (ICD-10-PCS; principal; 2016-08-09)
PROC: 5A1D60Z (ICD-10-PCS; 2016-08-10)
DX: I67.4 Hypertensive encephalopathy (principal); N18.6 End stage renal disease; J96.91 Respiratory failure, unspecified with hypoxia; K31.84 Gastroparesis; J81.1 Chronic pulmonary edema; I12.0 Hypertensive chronic kidney disease with stage 5 chronic kidney disease or end stage renal disease; E11.43 Type 2 diabetes mellitus with diabetic autonomic (poly)neuropathy; E87.70 Fluid overload, unspecified; T82.7XXA Infection and inflammatory reaction due to other cardiac and vascular devices, implants and grafts, initial encounter; I16.1 Hypertensive emergency; L03.112 Cellulitis of left axilla; E87.5 Hyperkalemia; E11.22 Type 2 diabetes mellitus with diabetic chronic kidney disease; L73.2 Hidradenitis suppurativa; F43.23 Adjustment disorder with mixed anxiety and depressed mood; D63.1 Anemia in chronic kidney disease; R51 Headache; I05.0 Rheumatic mitral stenosis; Z99.2 Dependence on renal dialysis; N28.1 Cyst of kidney, acquired; R10.11 Right upper quadrant pain; G47.33 Obstructive sleep apnea (adult) (pediatric); D57.3 Sickle-cell trait; Y83.2 Surgical operation with anastomosis, bypass or graft as the cause of abnormal reaction of the patient, or of later complication, without mention of misadventure at the time of the procedure; Z79.4 Long term (current) use of insulin; Z86.73 Personal history of transient ischemic attack (TIA), and cerebral infarction without residual deficits; Z91.041 Radiographic dye allergy status; Z91.013 Allergy to seafood; Z88.8 Allergy status to other drugs, medicaments and biological substances
CPT/HCPCS: 62270; 70450; 70544; 70551; 71010; 71250; 73200; 74176; 76705; 77003; 78226; 78582; 80048; 80053; 80074; 80076; 80307; 81001; 82435; 82550; 82565; 82607; 82805; 82945; 82947; 82948; 83036; 83605; 83690; 83735; 83921; 84100; 84132; 84157; 84207; 84295; 84425; 84439; 84443; 84484; 84520; 85025; 85027; 85610; 85652; 85730; 86038; 86140; 86403; 86592; 86651; 86652; 86653; 86654; 86703; 86788; 86789; 87015; 87040; 87070; 87102; 87116; 87205; 87206; 87529; 87641; 87799; 88112; 89051; 90935; 93005; 93306; 93880; 93971; 94620; 94640; 94664; 95819; 96365; 96374; 96375; A9537; A9540; A9567; C9113; J0360; J0610; J0780; J1170; J1644; J1815; J2060; J2405; J2997; J3370; J7030; J7040; J7050; Q0169; Q4081

== ENCOUNTER 2017-02-13 20:08 | Inpatient (IN) | payer MEDICARE, OTHER ==
[~2017-02-13] VITALS: Ht 175.3 cm; Wt 95.0 kg
[~2017-02-13 20:08] MED LIST changes: -BACT800T5 PO; +BUTATAB6 PO; +CLON0.1T PO; -DOXE100C4 PO; -HYDR-3533 PO; -LORA-474 PO; +METR-1 PO; +MIRTA15 PO; +NIFE20 PO; +OXYGENTANK NAS.CANULA; -PROM25TA5 PO; +SEVEL800 PO
[2017-02-13 20:53] VITALS: BP 170/79; PULSE 98; RESP 26; O2SAT 96
[2017-02-13] MEDS ORDERED: ASPIRIN 81 MG CHEW TAB PO ONE (21:15)
[2017-02-13] MEDS ORDERED: NITROGLYCERIN 2% OINT 1 GM PACKET TOP ONE (21:15)
[2017-02-13] MEDS ORDERED: MORPHINE SULFATE 4 MG/ML INJ IV PUSH ONE (21:15)
[2017-02-13] MEDS ORDERED: ONDANSETRON HCL 4 MG/2 ML VIAL IV ONE (21:15)
[2017-02-13] MEDS ORDERED: NITROGLYCERIN 0.4 MG SL 25 TABS/BTL SL ONE (21:15)
[2017-02-13] MEDS ORDERED: SODIUM CHLORIDE 0.9% FLUSH 10 ML FLUSH IVF PRN (21:15)
--- NOTE | 2017-02-13 21:16 | PD ---
HPI Chief Complaint: Pain: Acute or Chronic Time Seen by Provider: 20:46 Travel History International Travel<30 days: No Contact w/Intl Traveler<30days: No Traveled to known affect area: No History of Present Illness HPI The patient is 46 year old male who presents to the [facility] emergency department with a history of chest pain that he reports began 2 days ago and became constant yesterday morning upon awakening at 9 AM. He denies any prior history of myocardial infarction, congestive heart failure, DVT, or PE. He does report that he has had chest pain in the past. He reports that he is followed by Dr. Engel for his cardiac care. He reports that he last had a stress test done a year ago. The patient denies ever having angioplasty, stenting, or open heart surgery. The patient unfortunately does have a history of chronic renal failure on hemodialysis. The patient reports that his last dialysis session was Tuesday. He denies having any worsening edema. He reports that the chest pain is in the center of his chest and sharp in character. He reports that it is worse with taking a deep breath. He reports that he has had some shortness of breath associated with this. He reports having nausea but no vomiting or diarrhea. His last bowel movement was yesterday. He reports that he had a fever with a MAXIMUM TEMPERATURE of 100.1 last night. The patient additionally reports that he is on antibiotic, however he cannot recall the name of the antibiotic and did not bring it to the emergency department. He reports that he's been on antibiotics for the last week related to an abscess on his chest. The patient has recurrent problems with abscesses related to hidradenitis suppurativa. The patient additionally reports on review of systems that he's had a cough that is dry in character and been present for the last month. Otherwise on review of systems, the patient denies any recent worsening congestion, neck pain, abdominal pain, or neurologic symptoms. [facility] Past Medical History Narrative Medical The patient's past medical history is significant for having end-stage renal disease on hemodialysis on Tuesday, Tuesday, Tuesday, history of chronic pain, diabetes mellitus, hypertension, gastroparesis, sickle cell trait, neuropathy, history of gastritis. Anemia: Yes Arthritis: No Autoimmune Disease: No Blood Disorders: No Anxiety: Yes Depression: Yes Heart Rhythm Problems: Yes (TACHYCARDIA) Cancer: No Cardiac Catheterization: No Cardiovascular Problems: Yes High Cholesterol: No Chemotherapy: No Chest Pain: Yes Congestive Heart Failure: No COPD: No Cerebrovascular Accident: No Diabetes: Yes Dialysis: Yes (M W F) Diminished Hearing: No Endocrine: Yes Gastrointestinal Disorders: Yes (GASTROPARESIS) GERD: No Glaucoma: No Genitourinary: Yes Headaches: Yes Hepatitis: No Hiatal Hernia: No Hypertension: Yes Immune Disorder: No Implanted Vascular Access Dvce: Yes (PORT) Kidney Stones: No Musculoskeletal: Yes Neurologic: Yes (NEUROPATHY IN LEGS) Psychiatric: Yes Reproductive: No Respiratory: No Immunizations Current: Yes Myocardial Infarction: No Radiation Therapy: No Renal Failure: Yes Seizures: Yes Sickle Cell Disease: Yes (PT STATES HE HAS THE "TRAIT") Sleep Apnea: No Thyroid Disease: No Ulcer: No PNEUMOCCOCAL Vaccine (Year): 1 Past Surgical History Narrative Surgical The patient's past surgical history is significant for an AV fistula left upper extremity, abdominal surgery as an emptying, endoscopy and colonoscopy. Abdominal Surgery: Yes (multiple surgeries due to poor sweat glands) AICD: No Arteriovenous Shunt: Yes (LEFT UPPER ARM FISTULA) Body Medical Devices: left arm fistula; right chest port TENCHKOFF Cardiac Surgery: No Coronary Artery Bypass Graft: No Ear Surgery: No Endocrine Surgery: No Eye Surgery: No Genitourinary Surgery: Yes (TENKCHOFF TUBE FOR PD ) Gynecologic Surgery: No Insulin Pump: No Joint Replacement: No Oral Surgery: No Pacemaker: No Thoracic Surgery: No Other Surgery: Yes (FISTULA UPPER LEFT ARM) Social History Alcohol Use: No Tobacco Use: No Substance Use: No Allergies-Medications (Allergen,Severity, Reaction): Coded Allergies: Fish Containing Products (Unverified Allergy, Severe, SWELLING-CANT BREATH -HIVES, 02/13/17) diatrizoate meglumine (Unverified Allergy, Severe, nausea/vomiting, ) causes n/v HAD TEST TODAY 11/15/11 TOOK BENADRYL AND DID OK. gadobenic acid (Unverified Allergy, Severe, nausea/vomiting, 02/13/17) causes n/v HAD TEST TODAY 11/15/11 TOOK BENADRYL AND DID OK. gadodiamide (Unverified Allergy, Severe, nausea/vomiting, 02/13/17) causes n/v HAD TEST TODAY 11/15/11 TOOK BENADRYL AND DID OK. gadoteridol (Unverified Allergy, Severe, nausea/vomiting, 02/13/17) causes n/v HAD TEST TODAY 11/15/11 TOOK BENADRYL AND DID OK. iodixanol (Unverified Allergy, Severe, nausea/vomiting, 02/13/17) causes n/v HAD TEST TODAY 11/15/11 TOOK BENADRYL AND DID OK. iohexol (Unverified Allergy, Severe, nausea/vomiting, 02/13/17) causes n/v HAD TEST TODAY 11/15/11 TOOK BENADRYL AND DID OK. metoclopramide (Unverified Allergy, Severe, ANXIETY, 02/13/17) Reported Meds & Prescriptions Reported Meds & Active Scripts Active Mirtazapine 15 Mg Tab 15 Mg PO HS Renvela (Sevelamer Carbonate) 800 Mg Tab 1,600 Mg PO TIDAC Clonidine (Clonidine HCl) 0.1 Mg Tab 0.1 Mg PO Q6HR PRN Nifedipine 20 Mg Cap 20 Mg PO Q8HR Oxygen tank (Oxygen) 1 Ea Tank 2 Liter MICHAEL.CANULA CONTINUOUS Oxygen Concentrator Portable Gaseous 2 L/min via Nasal Cannula Continuous For 99 months Erythromycin Base 250 Mg Tab 250 Mg PO TIDAC Reported Sensipar (Cinacalcet) 30 Mg Tab 30 Mg PO DAILY Rifampin 300 Mg Cap 300 Mg PO DAILY Yvkxsigi-Feogcryhfs-Tulucrnpo Topical 1 Application Oint 1 Applic TOPICAL Q4H Clindamycin (Clindamycin HCl) 150 Mg Cap 150 Mg PO Q6H Amoxicillin 500 Mg Tab 500 Mg PO BID Amlodipine (Amlodipine Besylate) 5 Mg Tab 5 Mg PO DAILY Prednisone 20 Mg Tab 20 Mg PO DAILY Omeprazole 40 Mg Cap 40 Mg PO DAILY Isosorbide Mononitrate 20 Mg Tab 20 Mg PO BID Take 2 doses 7 hours apart. Lantus Inj (Insulin Glargine) 1,000 Unit/10 Ml Vial 1 Units SQ PRN Doxepin (Doxepin HCl) 150 Mg Cap 300 Mg PO DAILY Hydralazine (Hydralazine HCl) 100 Mg Tab 50 Mg PO TID Take with meals Nephro-Adan Rx (Vitamin B Cmplx/Vit C/Folic AC) 1 Tab 1 Tab PO Novolin 70-30 Inj (Insulin Human Isoph/Insulin Regular) 1,000 Unit/10 Ml Vial 1 Units SQ Losartan (Losartan Potassium) 100 Mg Tab 100 Mg PO HS Carvedilol 12.5 Mg Tab 12.5 Mg PO BID Calcium Acetate (Calcium Acetate (Phosphate Bin) 667 Mg Cap Review of Systems Except as stated in HPI: all other systems reviewed are Neg General / Constitutional: Positive: Fever Eyes: No: Visual changes HENT: Positive: Headaches, No: Neck Stiffness, Neck Pain Cardiovascular: Positive: Chest Pain or Discomfort Respiratory: Positive: Cough, Shortness of Breath Gastrointestinal: Positive: Nausea, No: Vomiting, Diarrhea, Abdominal Pain, Changes in Bowel Habits, Indigestion, Loss of Appetite Genitourinary: No: Dysuria Musculoskeletal: Positive: Myalgias, Pain Skin: Positive Rash, Positive Lumps Neurologic: No: Weakness, Focal Abnormalities, Change in Mentation, Slurred Speech, Sensory Disturbance Psychiatric: No: Depression Endocrine: No: Polydipsia Hematologic/Lymphatic: No: Easy Bruising Physical Exam Narrative General: The patient is a well-developed well-nourished male in no acute distress. Head and Neck exam: Head is normocephalic atraumatic. Eyes: EOMI, pupils are equal round and reactive to light. Nose: Midline septum with pink mucous membranes Mouth: Dentition unremarkable. Moist mucus membranes. Posterior oropharynx is not erythematous. No tonsillar hypertrophy. Uvula midline. Airway patent. Neck: No palpable lymphadenopathy. No nuchal rigidity. No thyromegaly. Cardiovascular: Regular rate and rhythm without murmurs, gallops, or rubs. The patient has a bandage in place along the anterior chest wall with an area of excoriation noted underlying the bandage. The patient has a purulent drainage from the wound that is also underneath the bandage underlying the sticky aspect of the bandage. A culture was done of this area. There is no fluctuance or crepitus. The patient reports having some discomfort on palpation of the area. Lungs: Clear to auscultation bilaterally. No wheezes, rhonchi, or rales. Abdomen: Soft, without tenderness to palpation in all 4 quadrants of the abdomen. No guarding, rebound, or rigidity. Normal bowel sounds are audible. No tenderness on palpation of McBurney's point. Extremities: No clubbing, cyanosis, or edema. 2+ pulses in all 4 extremities. No calf tenderness on palpation. The patient has a positive thrill on examination of the AV fistula left upper extremity. No over lying signs of erythema, edema, or warmth. The patient reports that since Tuesday he has had pain in the left fifth digit. He denies any specific injury. The patient has tenderness on palpation diffusely along the left fifth digit. There is no erythema the patient has full range of motion with pain. The patient has intact sensation over the fingertip. Less than 3 second capillary refill of his digits. Back: No spinous process tenderness to palpation. No costovertebral angle tenderness to palpation. Neurologic Exam: Grossly nonfocal. Skin Exam: The patient has scarring noted in bilateral axillary areas related to his history of hidradenitis suppurativa. Data Data Last Documented VS Vital Signs Date Time Temp Pulse Resp B/P (MAP) Pulse Ox O2 Delivery O2 Flow Rate FiO2 02/13/17 23:12 98.9 96 16 128/63 (84) 96 02/13/17 22:47 Room Air Orders Orders Electrocardiogram (02/13/17 21:03) B-Type Natriuretic Peptide (02/13/17 21:03) Ckmb (Isoenzyme) Profile (02/13/17 21:03) Complete Blood Count With Diff (02/13/17 21:) Comprehensive Metabolic Panel (02/13/17 21:) Magnesium (Mg) (02/13/17 21:03) Prothrombin Time / Inr (Pt) (02/13/17 21:03) Act Partial Throm Time (Ptt) (02/13/17 21:03) Troponin I (02/13/17 21:03) Lipase (02/13/17 21:03) Chest, Single Ap (02/13/17 21:03) Ecg Monitoring (02/13/17 21:03) Bilateral Bp Monitoring (02/13/17 21:03) Iv Access Insert/Monitor (02/13/17 21:03) Oximetry (02/13/17 21:03) Oxygen Administration (02/13/17 21:03) Aspirin Chew (Aspirin Chew) (02/13/17:15) Morphine Inj (Morphine Inj) (02/13/17 21:15) Nitroglycerin 2% Oint (Nitroglycerin 2% (02/13/17 21:15) Sodium Chloride 0.9% Flush (Ns Flush) (02/13/17 21:15) Nitroglycerin Sl (Nitrostat Sl) (02/13/17 21:15) Ondansetron Inj (Zofran Inj) (02/13/17 21:15) Lactic Acid Sepsis Protocol (02/13/17 21:03) Blood Culture (02/13/17 21:03) Wound Culture And Gram Stain (02/13/17 21:03) Prochlorperazine Inj (Compazine Inj) (02/13/17 21:30) Piperacil-Tazo 3.375 Gm Premix (Zosyn 3. (02/13/17 22:45) Vancomycin Inj (Vancomycin Inj) (02/13/17 22:45) CKMB (02/13/17 22:20) CKMB% (02/13/17 22:20) Admit Order (Ed Use Only) (02/13/17 23:28) Labs Laboratory Tests Test 02/13/17 22:20 White Blood Count 10.3 TH/MM3 Red Blood Count 3.55 MIL/MM3 Hemoglobin 10.1 GM/DL Hematocrit 31.2 % Mean Corpuscular Volume 87.8 FL Mean Corpuscular Hemoglobin 28.4 PG Mean Corpuscular Hemoglobin Concent 32.3 % Red Cell Distribution Width 21.8 % Platelet Count 349 TH/MM3 Mean Platelet Volume 7.3 FL Neutrophils (%) (Auto) 71.6 % Lymphocytes (%) (Auto) 12.3 % Monocytes (%) (Auto) 10.4 % Eosinophils (%) (Auto) 5.1 % Basophils (%) (Auto) 0.6 % Neutrophils # (Auto) 7.4 TH/MM3 Lymphocytes # (Auto) 1.3 TH/MM3 Monocytes # (Auto) 1.1 TH/MM3 Eosinophils # (Auto) 0.5 TH/MM3 Basophils # (Auto) 0.1 TH/MM3 CBC Comment DIFF FINAL Differential Comment Prothrombin Time 12.0 SEC Prothromb Time International Ratio 1.1 RATIO Activated Partial Thromboplast Time 88.2 SEC Blood Urea Nitrogen 66 MG/DL Creatinine 12.00 MG/DL Random Glucose 110 MG/DL Total Protein 8.0 GM/DL Albumin 2.9 GM/DL Calcium Level 7.9 MG/DL Magnesium Level 2.4 MG/DL Alkaline Phosphatase 107 U/L Aspartate Amino Transf (AST/SGOT) 11 U/L Alanine Aminotransferase (ALT/SGPT) 12 U/L Total Bilirubin 0.3 MG/DL Sodium Level 141 MEQ/L Potassium Level 5.2 MEQ/L Chloride Level 105 MEQ/L Carbon Dioxide Level 22.4 MEQ/L Anion Gap 14 MEQ/L Estimat Glomerular Filtration Rate 6 ML/MIN Lactic Acid Level 0.7 mmol/L Total Creatine Kinase 154 U/L Creatine Kinase MB 4.7 NG/ML Troponin I 0.09 NG/ML B-Type Natriuretic Peptide 113 PG/ML Lipase 226 U/L [facility] Medical Decision Making Medical Screen Exam Complete: Yes Emergency Medical Condition: Yes Medical Record Reviewed: Yes Interpretation(s) Last Impressions Chest X-Ray 02/13/172102 Signed Impressions: Service Date/Time: Monday, February 13, 2017 21:08 - CONCLUSION: No evidence of acute cardiopulmonary disease. Casimiro Hair MD Differential Diagnosis Acute coronary syndrome, versus pneumonia, versus endocarditis, versus chest pain related to chest wall abscess, versus pneumothorax, versus acid reflux Narrative Course During the course of the patients emergency department visit, the patients history, examination, and differential diagnosis were reviewed with the patient. The patient had IV access obtained and blood work sent for analysis. The patient was placed on a radiation monitor with oximetry and blood pressure monitoring. An ECG was done on arrival. The patient's ECG shows a sinus rhythm heart rate of 96, no acute ST segment elevation is noted. QRS duration is 93 ms, QTC 404 ms. A lactic acid was done. Blood cultures 2 were collected. A wound culture was collected from his chest. The patient is noted to be afebrile. The patient was initially provided aspirin 162 mg by mouth 1 as the patient reports that he did take 2 low-dose aspirin earlier today. The patient will be given sublingual nitroglycerin when necessary chest pain. The patient will be given nitroglycerin 1 inch the chest wall. The patient is given morphine 2 mg IV for pain, Compazine 5 mg IV for nausea. The patient was covered with broad- spectrum antibiotic as he reports that he has been on antibiotic for the last week and has been having worsening symptoms. The patients laboratory studies were reviewed and remarkable for a white count of 10.3, hemoglobin of 10.1, platelets 349 with 71.6 neutrophils, monocytes 10.4 , CMP is remarkable for potassium of 5.2, BUNs 56, creatinine 12, glucose 110, calcium 7.9, AST 11, CPK 154, CK-MB 4.7, troponin I 0.09, BNP is 113, lipase 226 , lactic acid 0.7, PT 12, PTT 88.2 Radiology studies were reviewed and remarkable for a chest x-ray that shows no evidence of acute cardiopulmonary disease. The patient will be admitted to the hospital for rule out serial cardiac enzyme protocol, further evaluation and treatment regarding worsening skin infection along the central chest, and dry cough for the last month. The patients results were discussed with the patient, including the plan of care. I explained that further testing and/ or monitoring is indicated based on the patients history, examination, and/ or laboratory findings. Therefore, I recommended admission for additional evaluation. The patient expressed understanding and was agreeable with this plan. The patient was admitted to the hospital in stable condition and [facility] Physician Communication Physician Communication The patient's case was discussed with Dr. Chong who did agree to admit the patient for further evaluation and treatment at this time. Diagnosis Primary Impression: Chest pain, rule out acute myocardial infarction Additional Impression: Skin infection, bacterial Admitting Information Admitting Physician Requests: Observation Cheyenne Esparza MD Feb 13, 2017 21:16
[2017-02-13] MEDS ORDERED: PROCHLORPERAZINE INJ 10 MG/2 ML VIAL IV PUSH ONE (21:30)
--- NOTE | 2017-02-13 21:41 | RADRPT ---
EXAM DATE/TIME: 02/13/2017 21:08 [place] COMPARISON: CHEST SINGLE AP, August 16, 2016, 8:46. INDICATIONS : Chest pain. MEDICAL HISTORY : Hypertension. Gastroparesis. Diabetes mellitus type II. SURGICAL HISTORY : A-V fistula ENCOUNTER: Initial ACUITY: 1 day PAIN SCORE: 10/10 LOCATION: Mid chest FINDINGS: No infiltrate, effusion or pneumothorax demonstrated. Heart size stable, upper limits of normal. Righ t subclavian [id number] catheter again seen with tip in the superior vena cava. CONCLUSION: No evidence of acute cardiopulmonary disease. Casimiro Hair MD on February 13, 2017 at 21:39 Board Certified Radiologist. This report was verified electronically.
[2017-02-13 22:29] VITALS: O2SAT 95
[2017-02-13 22:31] VITALS: BP 152/88; PULSE 95; RESP 16; O2SAT 100
[2017-02-13] MEDS ORDERED: DOXE150C7 PO (22:41)
[2017-02-13] MEDS ORDERED: HYDR-3801 PO (22:41)
[2017-02-13 22:45] LABS: AUTOMATED NEUTROPHIL # 7.4 TH/MM3 (1.8-7.7); BASOPHIL # 0.1 TH/MM3 (0-0.2); BASOPHIL % 0.6 % (0.0-2.0); EOSINOPHIL # 0.5 TH/MM3 (0-0.4); EOSINOPHIL % 5.1 % (0.0-4.0); HEMATOCRIT 31.2 % (39.0-51.0); HEMO FLAGS DIFF FINAL; LYMPH % 12.3 % (9.0-44.0); LYMPHOCYTE # 1.3 TH/MM3 (1.0-4.8); MEAN CELL VOLUME 87.8 FL (80.0-100.0); MEAN CORPUSCULAR HEMOGLOBIN 28.4 PG (27.0-34.0); MEAN CORPUSCULAR HGB CONC 32.3 % (32.0-36.0); MONO % 10.4 % (0.0-8.0); NEUT % 71.6 % (16.0-70.0); PLATELET COUNT 349 TH/MM3 (150-450); RED BLOOD COUNT 3.55 MIL/MM3 (4.50-5.90); RED CELL DISTRIBUTION WIDTH 21.8 % (11.6-17.2); WHITE BLOOD COUNT 10.3 TH/MM3 (4.0-11.0)
[2017-02-13] MEDS ORDERED: PIPERACIL-TAZO 3.375 GM PREMIX 50 ML IV ONE (22:45)
[2017-02-13] MEDS ORDERED: VANCOMYCIN INJ 1,000 MG in SODIUM CHLOR 0.9% 250 ML INJ 250 ML IV ONE (22:45)
[2017-02-13 22:46] VITALS: BP 152/88; PULSE 99; RESP 18; O2SAT 99
[2017-02-13] MEDS ORDERED: CINA30 PO (22:46)
[2017-02-13] MEDS ORDERED: RIFA300C2 PO (22:46)
[2017-02-13] MEDS ORDERED: AMLO5TAB2 PO (22:46)
[2017-02-13] MEDS ORDERED: LANTUS2P SQ (22:46)
[2017-02-13] MEDS ORDERED: OMEP40CA2 PO (22:46)
[2017-02-13] MEDS ORDERED: ISOS20TA PO (22:46)
[2017-02-13] MEDS ORDERED: CLIN1CAP5 PO (22:46)
[2017-02-13] MEDS ORDERED: PRED20 PO (22:46)
[2017-02-13] MEDS ORDERED: AMOX500T PO (22:46)
[2017-02-13] MEDS ORDERED: BACIOIN13 TOPICAL (22:46)
[2017-02-13 22:47] VITALS: BP 122/58; PULSE 98; RESP 16; O2SAT 96
[2017-02-13 22:53] LABS: APTT (PATIENT) 88.2 SEC (24.3-30.1); INTERNATIONAL NORMALIZED RATIO 1.1 RATIO
[2017-02-13 22:58] LABS: ANION GAP 14 MEQ/L (5-15); AST (GOT) 11 U/L (15-37); BICARBONATE 22.4 MEQ/L (21.0-32.0); BLOOD UREA NITROGEN 66 MG/DL (7-18); CHLORIDE 105 MEQ/L (98-107); GLOMERULAR FILTRATION RATE 6 ML/MIN (>89); MAGNESIUM 2.4 MG/DL (1.5-2.5); POTASSIUM 5.2 MEQ/L (3.5-5.1); SODIUM (NA) 141 MEQ/L (136-145)
[2017-02-13 23:03] LABS: ALKALINE PHOSPHATASE 107 U/L (45-117); ALT (GPT) 12 U/L (12-78); CREATINE KINASE 154 U/L (39-308); TOTAL BILIRUBIN ADULT 0.3 MG/DL (0.2-1.0)
[2017-02-13 23:12] VITALS: BP 128/63; PULSE 96; RESP 16; TEMP 98.9; O2SAT 96
[2017-02-13 23:27] LABS: CKMB 4.7 NG/ML (0.5-3.6)
[2017-02-13] MEDS ORDERED: MAGNESIUM HYDROXIDE SUSP 30 ML CUP PO PRN (23:30)
[2017-02-13] MEDS ORDERED: NITROGLYCERIN 2% OINT 1 GM PACKET TOPICAL PRN (23:30)
[2017-02-13] MEDS ORDERED: DEXTROSE 50% IN WATER 50 ML VIAL(D50) IV PRN (23:30)
[2017-02-13] MEDS ORDERED: LACTULOSE SYRUP 20 GM/30 ML CUP PO PRN (23:30)
[2017-02-13] MEDS ORDERED: BISACODYL 10 MG SUPP RECTAL PRN (23:30)
[2017-02-13] MEDS ORDERED: GLUCAGON 1 MG/ML VIAL OTHER PRN (23:30)
[2017-02-13] MEDS ORDERED: SENNOSIDES 8.6 MG TAB PO PRN (23:30)
[2017-02-13] MEDS ORDERED: ACETAMINOPHEN 325 MG TAB PO PRN (23:30)
--- NOTE | 2017-02-13 23:39 | HHI.HP ---
HPI Service [facility] Primary Care Physician Blair Richardson MD Admission Diagnosis cp r/o PA, skin infection Diagnoses: (1) Chest pain Diagnosis: Principal (2) Elevated troponin Diagnosis: Principal (3) Skin infection, bacterial Diagnosis: Principal (4) ESRD (end stage renal disease) on dialysis Diagnosis: Principal (5) DM (diabetes mellitus) Diagnosis: Principal Travel History International Travel<30 Days: No Contact w/Intl Traveler <30 Da: No Traveled to Known Affected Are: No History of Present Illness This is a 46-year-old male with a PMH of HTN, Hyperlipidemia, DM, Hidradenitis Suppurativa, ESRD on HD M/W/F, Anxiety, Depression and Gastritis and presented to the ER with complaints of chest pain x2 days. States symptoms have been on and off, but worse today. Follows ximena/ Dr. Engel as outpatient, reports recent eval and prior Stress Test normal. States he's been on antibiotic for chest wall hidradenitis x1 wk but cannot recall name of antibiotic. On arrival, BP 170/79, HR 98, O2 sat 96% on RA, Afebrile. WBC normal. Chemistry essentially at baseline. Creatinine 12.0, previously 9.68 on 08/21/16. Lactic Acid normal. Troponin 0.09, EKG with no acute ischemia. INR 1.1. CXR with no acute findings. Review of Systems Except as stated in HPI: all other systems reviewed are Neg ROS: 14 point review of systems otherwise negative. Past Family Social History Past Medical History PMH: HTN, Hyperlipidemia, DM, Hidradenitis Suppurativa, ESRD on HD M/W/F, Anxiety, Depression and Gastritis Past Surgical History PAST SURGICAL HISTORY: LUE AV Fistula Allergies: Coded Allergies: Fish Containing Products (Unverified Allergy, Severe, SWELLING-CANT BREATH -HIVES, 02/13/17) diatrizoate meglumine (Unverified Allergy, Severe, nausea/vomiting, ) causes n/v HAD TEST TODAY 11/15/11 TOOK BENADRYL AND DID OK. gadobenic acid (Unverified Allergy, Severe, nausea/vomiting, 02/13/17) causes n/v HAD TEST TODAY 11/15/11 TOOK BENADRYL AND DID OK. gadodiamide (Unverified Allergy, Severe, nausea/vomiting, 02/13/17) causes n/v HAD TEST TODAY 11/15/11 TOOK BENADRYL AND DID OK. gadoteridol (Unverified Allergy, Severe, nausea/vomiting, 02/13/17) causes n/v HAD TEST TODAY 11/15/11 TOOK BENADRYL AND DID OK. iodixanol (Unverified Allergy, Severe, nausea/vomiting, 02/13/17) causes n/v HAD TEST TODAY 11/15/11 TOOK BENADRYL AND DID OK. iohexol (Unverified Allergy, Severe, nausea/vomiting, 02/13/17) causes n/v HAD TEST TODAY 11/15/11 TOOK BENADRYL AND DID OK. metoclopramide (Unverified Allergy, Severe, ANXIETY, 02/13/17) Family History PAST FAMILY HISTORY: Reviewed, positive for DM. Social History PAST SOCIAL HISTORY: Negative for alcohol, tobacco or drugs. Physical Exam Vital Signs Vital Signs Date Time Temp Pulse Resp B/P (MAP) Pulse Ox O2 Delivery O2 Flow Rate FiO2 02/13/17 23:12 98.9 96 16 128/63 (84) 96 02/13/17 22:47 98 16 122/58 (79) 96 Room Air 02/13/17 22:46 99 18 152/88 (109) 99 Room Air 02/13/17 22:31 95 16 152/88 (109) 100 Room Air 02/13/17 22:29 95 Room Air 02/13/17 20:53 98 26 170/79 (109) 96 Physical Exam PE: GENERAL: Middle-aged male in no acute distress. HEENT: PERRLA, EOMI. No scleral icterus or conjunctival pallor. No lid lag or facial droop. CARDIOVASCULAR: Regular rate and rhythm. No obvious murmurs to auscultation. No chest tenderness to palpation. Chest wall bandage, mild purulent drainage RESPIRATORY: No obvious rhonchi or wheezing. Clear to auscultation. Breath sounds equal bilaterally. GASTROINTESTINAL: Abdomen soft, non-tender, nondistended. BS normal. MUSCULOSKELETAL: Extremities without clubbing, cyanosis, or edema. No obvious deformities. NEUROLOGICAL: Awake, alert and oriented x4. No focal neurologic deficits. Moving both upper and lower extremities spontaneously. Laboratory Laboratory Tests Test 02/13/17 22:20 White Blood Count 10.3 Red Blood Count 3.55 Hemoglobin 10.1 Hematocrit 31.2 Mean Corpuscular Volume 87.8 Mean Corpuscular Hemoglobin 28.4 Mean Corpuscular Hemoglobin Concent 32.3 Red Cell Distribution Width 21.8 Platelet Count 349 Mean Platelet Volume 7.3 Neutrophils (%) (Auto) 71.6 Lymphocytes (%) (Auto) 12.3 Monocytes (%) (Auto) 10.4 Eosinophils (%) (Auto) 5.1 Basophils (%) (Auto) 0.6 Neutrophils # (Auto) 7.4 Lymphocytes # (Auto) 1.3 Monocytes # (Auto) 1.1 Eosinophils # (Auto) 0.5 Basophils # (Auto) 0.1 CBC Comment DIFF FINAL Differential Comment Prothrombin Time 12.0 Prothromb Time International Ratio 1.1 Activated Partial Thromboplast Time 88.2 Blood Urea Nitrogen 66 Creatinine 12.00 Random Glucose 110 Total Protein 8.0 Albumin 2.9 Calcium Level 7.9 Magnesium Level 2.4 Alkaline Phosphatase 107 Aspartate Amino Transf (AST/SGOT) 11 Alanine Aminotransferase (ALT/SGPT) 12 Total Bilirubin 0.3 Sodium Level 141 Potassium Level 5.2 Chloride Level 105 Carbon Dioxide Level 22.4 Anion Gap 14 Estimat Glomerular Filtration Rate 6 Lactic Acid Level 0.7 Total Creatine Kinase 154 Creatine Kinase MB 4.7 Troponin I 0.09 B-Type Natriuretic Peptide 113 Lipase 226 Date/Time Source Procedure Growth Status 02/13/17 21:22 Wound Chest Gram Stain Pending Received 02/13/17 21:22 Wound Chest Wound Culture Pending Received Result Diagram: 02/13/17221902/13/172219 Caprini VTE Risk Assessment Caprini VTE Risk Assessment: No/Low Risk (score <= 1) Caprini Risk Assessment Model Point Value = 1 Point Value = 2 Point Value = 3 Point Value = 5 Age 41-60 Minor surgery BMI > 25 kg/m2 Swollen legs Varicose veins or History of unexplained or recurrent spontaneous Oral contraceptives or hormone replacement Sepsis (< 1 month) Serious lung disease, including pneumonia (< 1 month) Abnormal pulmonary function Acute myocardial infarction Congestive heart failure (< 1 month) History of inflammatory bowel disease Medical patient at bed rest Age 61-74 Arthroscopic surgery Major open surgery (> 45 min) Laparoscopic surgery (> 45 min) Malignancy Confined to bed (> 72 hours) Immobilizing plaster cast Central venous access Age >= 75 History of VTE Family history of VTE Factor V Leiden Prothrombin [id number] Lupus anticoagulant Anticardiolipin antibodies Elevated serum homocysteine Heparin-induced thrombocytopenia Other congenital or acquired thrombophilia Stroke (< 1 month) Elective arthroplasty Hip, pelvis, or leg fracture Acute spinal cord injury (< 1 month) Prophylaxis Regimen Total Risk Factor Score Risk Level Prophylaxis Regimen 0-1 Low Early ambulation 2 Moderate Order ONE of the following: *Sequential Compression Device (SCD) *Heparin 5000 units SQ BID 3-4 Higher Order ONE of the following medications: *Heparin 5000 units SQ TID *Enoxaparin/Lovenox 40 mg SQ daily (WT < 150 kg, CrCl > 30 mL/min) *Enoxaparin/Lovenox 30 mg SQ daily (WT < 150 kg, CrCl > 10-29 mL/min) *Enoxaparin/Lovenox 30 mg SQ BID (WT < 150 kg, CrCl > 30 mL/min) AND/OR *Sequential Compression Device (SCD) 5 or more Highest Order ONE of the following medications: *Heparin 5000 units SQ TID (Preferred with Epidurals) *Enoxaparin/Lovenox 40 mg SQ daily (WT < 150 kg, CrCl > 30 mL/min) *Enoxaparin/Lovenox 30 mg SQ daily (WT < 150 kg, CrCl > 10-29 mL/min) *Enoxaparin/Lovenox 30 mg SQ BID (WT < 150 kg, CrCl > 30 mL/min) AND *Sequential Compression Device (SCD) Assessment and Plan Problem List: (1) Chest pain ICD Code: R07.9 - Chest pain Status: Acute (2) Elevated troponin ICD Code: R79.89 - Other specified abnormal findings of blood chemistry Status: Acute (3) ESRD (end stage renal disease) on dialysis ICD Code: N18.6 - End stage renal failure on dialysis; Z99.2 - Dependence on renal dialysis Status: Chronic (4) Skin infection, bacterial ICD Code: L08.9 - Local infection of the skin and subcutaneous tissue, unspecified; B96.89 - Other specified bacterial agents as the cause of diseases classified elsewhere Status: Acute (5) DM (diabetes mellitus) ICD Code: E11.9 - Type 2 diabetes mellitus without complications Assessment and Plan A/P: 1. Chest Pain: Atypical, likely multifactorial however will eval for underlying cardiac etiology. Initial trop 0.09, EKG w/ no acute ischemia. Check serial enzymes, ASA, Statin, B-herman, NTG/Morphine prn. 2. Elevated Trop: Trop 0.09, EKG w/ no acute ischemia, possibly related to renal dysfunction. Check serial enzymes. Consult Cardiology if needed. Treatment as above. 3. Chest Wall Infection: h/o Hidradenitis, on antibiotics x1 wk for chest wall infection, +purulent drainage from bandage, s/p Wound Culture in ER, will follow. Clinda PO. 4. ESRD on HD: M/W/F. Last HD on Tuesday w/ no complications, consult Nephrology to resume HD. 5. DM: Sliding scale w/ Accu-Cheks. 6. DVT Prophylaxis: Heparin sq 7. Social work for d/c planning as needed. 8. Case discussed w/ ER physician at length. Elizabeth Chong MD Feb 13, 2017 23:39
[2017-02-14] VITALS (9 sets, daily range): BP systolic 147–197; BP diastolic 66–92; PULSE 78–102; RESP 16–18; TEMP 97.8–99.7; O2SAT 94–100
[2017-02-14] MEDS: CLINDAMYCIN 150 MG CAP PO SCH ×5 (00:02→22:56)
[2017-02-14] MEDS: MORPHINE SULFATE 4 MG/ML INJ IV PUSH PRN ×5 (01:55→22:56)
[2017-02-14] MEDS: SODIUM CHLORIDE 0.9% FLUSH 10 ML FLUSH IV FLUSH PRN ×2 (01:56→05:06)
[2017-02-14] MEDS: NIFEdipine 20 MG CAP PO SCH ×3 (06:00→22:56)
--- NOTE | 2017-02-14 06:50 | EKG ---
Date Performed: 02/13/2017 Time Performed: 21:10:03 PTAGE: 46 years EKG: Sinus rhythm LEFT ATRIAL ENLARGEMENT ABNORMAL ECG NO PREVIOUS TRACING DOCTOR: Hebert Ricks Interpretating Date/Time 02/14/2017 06:49:51
[2017-02-14] MEDS ORDERED: cloNIDine HCL 0.1 MG TAB PO PRN ×2 (07:45→11:30)
[2017-02-14] MEDS: INSULIN ASPART SUPPLEMENTAL SCALE SQ SCH ×4 (08:00→21:00)
[2017-02-14] MEDS: SEVELAMER CARBONATE 800 MG TAB PO SCH ×3 (08:00→19:19)
[2017-02-14] MEDS ORDERED: DOXEPIN HCL 50 MG CAP PO SCH (09:00)
[2017-02-14] MEDS: SODIUM CHLORIDE 0.9% FLUSH 10 ML FLUSH IV FLUSH SCH ×2 (09:00→21:01)
[2017-02-14] MEDS ORDERED: amLODIPine BESYLATE 5 MG TAB PO SCH (09:00)
[2017-02-14] MEDS ORDERED: METOPROLOL TARTRATE 25 MG TAB PO SCH (09:00)
--- NOTE | 2017-02-14 09:33 | HHI.PR ---
Subjective Remarks Follow-up for chest pain. The patient was having intermittent chest pain from to Tuesday, and states the pain has been constant since then. The pain radiates from his right anterior chest to his right shoulder. The pain is associated with mild shortness of breath and diaphoresis, no nausea. He states the pain is worse when he takes a deep breath or when he moves. The patient had subjective chills on Tuesday. He denies any heart disease, states he follows with Dr. Engel to monitor his heart. He believes he had a stress test earlier this year. He does have hidradenitis and is currently following with Dr. Ca for wounds on his anterior chest and buttocks. He has been taking some antibiotics for wound infection. He denies any history of clots. He does have a dialysis catheter in his right chest wall, denies any issues with dialysis on Tuesday. Objective Vitals Vital Signs Date Time Temp Pulse Resp B/P (MAP) Pulse Ox O2 Delivery O2 Flow Rate FiO2 02/14/17 07:10 86 02/14/17 05:51 98.7 90 18 197/92 (127) 100 02/14/17 05:11 16 02/14/17 00:00 98.4 78 18 167/84 (111) 97 02/13/17 23:12 98.9 96 16 128/63 (84) 96 02/13/17 22:47 98 16 122/58 (79) 96 Room Air 02/13/17 22:46 99 18 152/88 (109) 99 Room Air 02/13/17 22:31 95 16 152/88 (109) 100 Room Air 02/13/17 22:29 95 Room Air 02/13/17 20:53 98 26 170/79 (109) 96 I/O 02/13/17 02/13/17 02/13/17 02/14/17 02/14/17 02/14/17 07:00 15:00 23:00 07:00 15:00 23:00 Intake Total 250 ml Balance 250 ml Intake IV Total 250 ml Result Diagram: 02/13/17221902/13/172219 Imaging Last Impressions Chest X-Ray 02/13/172102 Signed Impressions: Service Date/Time: Monday, February 13, 2017 21:08 - CONCLUSION: No evidence of acute cardiopulmonary disease. Casimiro Hair MD Objective Remarks GENERAL: Well-developed well-nourished. Appears uncomfortable, but in no acute distress. SKIN: Right anterior chest wall shallow ulceration with scant serosanguineous drainage and no surrounding erythema. Port in place on right upper chest wall. Old hidradenitis scars in the axilla bilaterally. HEENT: Normocephalic. Pupils equal and round. Mucous membranes pink and moist. CARDIOVASCULAR: Regular rate and rhythm. No murmur appreciated. Chest wall nontender to palpation. RESPIRATORY: No accessory muscle use. Clear to auscultation. Breath sounds equal bilaterally. GASTROINTESTINAL: Abdomen soft, non-tender, nondistended. Bowel sounds x4. MUSCULOSKELETAL: No obvious deformities. No clubbing or cyanosis. No edema. NEUROLOGICAL: Awake and alert. No focal neurological deficits. Moves upper and lower extremities spontaneously. Normal speech. PSYCHIATRIC: Appropriate mood and affect; insight and judgment normal. A/P Problem List: (1) Chest pain ICD Code: R07.9 - Chest pain Status: Acute (2) Elevated troponin ICD Code: R79.89 - Other specified abnormal findings of blood chemistry Status: Chronic (3) ESRD (end stage renal disease) on dialysis ICD Code: N18.6 - End stage renal failure on dialysis; Z99.2 - Dependence on renal dialysis Status: Chronic (4) Skin infection, bacterial ICD Code: L08.9 - Local infection of the skin and subcutaneous tissue, unspecified; B96.89 - Other specified bacterial agents as the cause of diseases classified elsewhere Status: Acute (5) DM (diabetes mellitus) ICD Code: E11.9 - Type 2 diabetes mellitus without complications Status: Chronic Assessment and Plan 46-year-old male with a PMH of HTN, Hyperlipidemia, DM, Hidradenitis Suppurativa , ESRD on HD M/W/F, Anxiety, Depression and Gastritis and presented with complaints of chest pain Atypical Chest Pain: Unclear etiology; etiologies include possible ACS, PE, wound/abscess, dialysis catheter malfunction. Reviewed: Trop 0.09x2, previously 0.17 on 08/09/16. EKG w/ no ischemic changes. -Continue to trend cardiac enzymes -Continue ASA, Statin, B-herman, NTG/Morphine prn. -Check VQ scan -Consult cardiology Chest Wall Infection: h/o Hidradenitis, on antibiotics x1 wk for chest wall infection. Afebrile with no leukocytosis. Exam not really consistent with active infection. -Wound culture collected, results pending -Continue oral clindamycin pending wound culture -Check chest wall CT -Consult plastic surgery ESRD on HD: M/W/F. Last HD on Tuesday w/ no complications, -consulted Nephrology to resume HD. -Continue cinacalcet and sevelamer Hypertension: BP is labile. Currently elevated, likely compounded by pain and due for dialysis. -Continue losartan, nifedipine(DC amlodipine as duplicate), carvedilol, hydralazine, Imdur -Clonidine as needed DM: Sliding scale w/ Accu-Cheks. DVT Prophylaxis: Heparin sq Discharge Planning Disposition pending results of above workup and specialists recommendations Pipo Cleary Feb 14, 2017 09:33
[2017-02-14] MEDS: ASPIRIN EC 81 MG TABEC PO SCH (10:09)
[2017-02-14] MEDS: HEPARIN SODIUM - SQ 10,000 UNITS/ML VIAL SQ SCH ×2 (10:09→20:46)
[2017-02-14] MEDS: DOCUSATE SODIUM 50 MG/SENNA 8.6 MG TAB PO SCH ×2 (10:09→20:45)
[2017-02-14] MEDS: CARVEDILOL 12.5 MG TAB PO SCH ×2 (10:11→20:44)
--- NOTE | 2017-02-14 10:55 | RADRPT ---
EXAM DATE/TIME: 02/14/2017 10:17 [facility] COMPARISON: CT THORAX W/O CONTRAST, August 08, 2016, 19:58. INDICATIONS : Anterior chest wall wound. Chest pain. RADIATION DOSE: 5.86 CTDIvol (mGy) MEDICAL HISTORY : Hypertension. Seizures. SURGICAL HISTORY : AV shunt ENCOUNTER: Initial ACUITY: 3 days PAIN SCALE: 7/10 LOCATION: Bilateral chest TECHNIQUE: Volumetric scanning of the chest was performed. Using automated exposure control and adjustment of t he mA and/or kV according to patient size, radiation dose was kept as low as reasonably achievable to obtain optimal diagnostic quality images. DICOM format image data is available electronically for r eview and comparison. Follow-up recommendations for detected pulmonary nodules are based at a minimum on nodule size and pa tient risk factors according to Fleischner Society Guidelines. FINDINGS: LUNGS: There is no consolidation or pneumothorax. No concerning pulmonary nodule is visualized. Infuse-a-P ort implanted on the left. PLEURAE: There is no pleural thickening or pleural effusion. MEDIASTINUM: Minimal nonspecific adenopathy. Moderate aortic valve calcifications. AXILLAE: Moderate bilateral axillary adenopathy larger on the right than the left. This is stable in the inte rval. MUSCULOSKELETAL: Degenerative changes in the lower lumbar spine. MISCELLANEOUS: The visualized upper abdominal organs demonstrate no acute abnormality. CONCLUSION: Minimal induration in the abdominal wall on the right without bony abnormality No suspicious lung lesions identified Nonspecific mediastinal and axillary adenopathy. Bill Gotti MD FACR on February 14, 2017 at 10:50 Board Certified Radiologist. This report was verified electronically.
[2017-02-14] MEDS ORDERED: SODIUM CHLOR 0.9% 1000 ML INJ 1,000 ML OTHER PRN ×2 (11:18)
[2017-02-14] MEDS ORDERED: SODIUM CHLOR 0.9% 1000 ML INJ 1,000 ML IV PRN (11:18)
[2017-02-14] MEDS ORDERED: MANNITOL 12.5 GM/50 ML VIAL IV PRN (11:30)
[2017-02-14] MEDS ORDERED: ALBUMIN HUMAN 25% 25 GM/100 ML BAGP IV PRN (11:30)
[2017-02-14] MEDS ORDERED: ACETAMINOPHEN 325 MG TAB PO PRN (11:30)
[2017-02-14] MEDS ORDERED: HEPARIN SODIUM - IV 10,000 UNITS/10 ML VIAL IV FLUSH PRN (11:30)
[2017-02-14] MEDS ORDERED: NITROGLYCERIN 0.4 MG SL 25 TABS/BTL SL PRN (11:30)
[2017-02-14] MEDS ORDERED: SODIUM CHLORIDE 0.9% FLUSH 10 ML FLUSH IV FLUSH PRN (11:30)
[2017-02-14] MEDS: hydrALAZINE HCL 100 MG TAB PO SCH ×3 (13:00→21:01)
--- NOTE | 2017-02-14 13:05 | RADRPT ---
EXAM DATE/TIME: 02/14/2017 11:49 [facility] COMPARISON: CHEST SINGLE AP, February 13, 2017, 21:08. LUNG VENTILATION & PERFUSION SCAN, August 16, 2016, 10:07 . INDICATIONS : Chest pain and dyspnea. DOSE: 0.93 mCi Tc99m DTPA 8.6 mCi Tc99m DTPA aerosol MEDICAL HISTORY : Renal failure, chronic. Hypertension. Diabetes mellitus type 2. SURGICAL HISTORY : LUE AV Fistula. ENCOUNTER: Initial ACUITY: 2 days PAIN SCALE: 0/10 LOCATION: upper chest TECHNIQUE: Following five minutes of tidal breathing of DTPA aerosol, planar images of the lungs were performed in eight projections. The patient was then injected with MAA, and eight-view perfusion scan was perf ormed. FINDINGS: There is a homogeneous pattern of aerosol delivery to the periphery of both lungs. No focal ventilat ory defects are seen. Heart size is prominent resulting in diminished activity in the left base. The perfusion lung scan demonstrates a homogenous pattern of uptake in both lungs. No segmental or s ubsegmental defects are seen. Again, the cardiac shadow decreases activity laterally in the left base . CONCLUSION: Low probability scan for pulmonary embolus. Prieto Ramírez MD on February 14, 2017 at 13:01 Board Certified Radiologist. This report was verified electronically.
[2017-02-14] MEDS: CINACALCET HYDROCHLORIDE 30 MG TAB PO SCH (13:19)
[2017-02-14] MEDS: PRAVASTATIN SOD 40 MG TAB PO SCH (13:20)
[2017-02-14] MEDS: PANTOPRAZOLE SOD 40 MG DELAYED RELEASE TAB PO SCH (13:30)
[2017-02-14] MEDS: ISOSORBIDE MONONITRATE 20 MG TAB PO SCH ×2 (13:30→20:44)
--- NOTE | 2017-02-14 17:29 | PD.CONS ---
HPI Service Nephrology Consult Requested By Dr. Chong Reason for Consult End-stage renal disease Primary Care Physician Blair Richardson MD History of Present Illness Patient is a 46-year-old male with history of end-stage renal disease on hemodialysis who was having chest pain. Last 2 days accompanied with increasing shortness of breath he came to the emergency room with these complaints and was admitted, he goes on dialysis on Tuesday, Tuesday and Tuesday and follows with Dr. Richardson. Review of Systems Constitutional: COMPLAINS OF: Fatigue Respiratory: COMPLAINS OF: Shortness of breath Cardiovascular: COMPLAINS OF: Chest pain Psychiatric: COMPLAINS OF: Anxiety Past Family Social History Allergies: Coded Allergies: Fish Containing Products (Unverified Allergy, Severe, SWELLING-CANT BREATH -HIVES, 02/13/17) diatrizoate meglumine (Unverified Allergy, Severe, nausea/vomiting, ) causes n/v HAD TEST TODAY 11/15/11 TOOK BENADRYL AND DID OK. gadobenic acid (Unverified Allergy, Severe, nausea/vomiting, 02/13/17) causes n/v HAD TEST TODAY 11/15/11 TOOK BENADRYL AND DID OK. gadodiamide (Unverified Allergy, Severe, nausea/vomiting, 02/13/17) causes n/v HAD TEST TODAY 11/15/11 TOOK BENADRYL AND DID OK. gadoteridol (Unverified Allergy, Severe, nausea/vomiting, 02/13/17) causes n/v HAD TEST TODAY 11/15/11 TOOK BENADRYL AND DID OK. iodixanol (Unverified Allergy, Severe, nausea/vomiting, 02/13/17) causes n/v HAD TEST TODAY 11/15/11 TOOK BENADRYL AND DID OK. iohexol (Unverified Allergy, Severe, nausea/vomiting, 02/13/17) causes n/v HAD TEST TODAY 11/15/11 TOOK BENADRYL AND DID OK. metoclopramide (Unverified Allergy, Severe, ANXIETY, 02/13/17) Past Medical History HTN Hyperlipidemia DM Hidradenitis Suppurativa ESRD on HD M/W/F Anxiety, Depression Gastritis Past Surgical History AV fistula in the left arm Reported Medications Reported Meds & Active Scripts Active Mirtazapine 15 Mg Tab 15 Mg PO HS Renvela (Sevelamer Carbonate) 800 Mg Tab 1,600 Mg PO TIDAC Clonidine (Clonidine HCl) 0.1 Mg Tab 0.1 Mg PO Q6HR PRN Nifedipine 20 Mg Cap 20 Mg PO Q8HR Oxygen tank (Oxygen) 1 Ea Tank 2 Liter [employer] CONTINUOUS Oxygen Concentrator Portable Gaseous 2 L/min via Nasal Cannula Continuous For 99 months Erythromycin Base 250 Mg Tab 250 Mg PO TIDAC Reported Sensipar (Cinacalcet) 30 Mg Tab 30 Mg PO DAILY Rifampin 300 Mg Cap 300 Mg PO DAILY Cjcjenuk-Aywfrmqqkn-Zvfzycsan Topical 1 Application Oint 1 Applic TOPICAL Q4H Clindamycin (Clindamycin HCl) 150 Mg Cap 150 Mg PO Q6H Amoxicillin 500 Mg Tab 500 Mg PO BID Amlodipine (Amlodipine Besylate) 5 Mg Tab 5 Mg PO DAILY Prednisone 20 Mg Tab 20 Mg PO DAILY Omeprazole 40 Mg Cap 40 Mg PO DAILY Isosorbide Mononitrate 20 Mg Tab 20 Mg PO BID Take 2 doses 7 hours apart. Lantus Inj (Insulin Glargine) 1,000 Unit/10 Ml Vial 1 Units SQ PRN Doxepin (Doxepin HCl) 150 Mg Cap 300 Mg PO DAILY Hydralazine (Hydralazine HCl) 100 Mg Tab 50 Mg PO TID Take with meals Nephro-Adan Rx (Vitamin B Cmplx/Vit C/Folic AC) 1 Tab 1 Tab PO Novolin 70-30 Inj (Insulin Human Isoph/Insulin Regular) 1,000 Unit/10 Ml Vial 1 Units SQ Losartan (Losartan Potassium) 100 Mg Tab 100 Mg PO HS Carvedilol 12.5 Mg Tab 12.5 Mg PO BID Calcium Acetate (Calcium Acetate (Phosphate Bin) 667 Mg Cap Active Ordered Medications Current Medications Medications (Trade) Dose Ordered Sig/Bulmaro Route Start Time Stop Time Status Last Admin (NS Flush) 2 ml UNSCH PRN IVF 02/13/17 21:15 02/13/17 22:28 (D50w (Vial) Inj) 50 ml UNSCH PRN IV 02/13/17 23:30 (Glucagon Inj) 1 mg UNSCH PRN OTHER 02/13/17 23:30 (NovoLOG SUPPLEMENTAL SCALE) 1 ACHS SLIDING SCALE SQ 02/14/17 08:00 02/14/17 12:00 (NS Flush) 2 ml UNSCH PRN IV FLUSH 02/13/17 23:30 02/14/17 05:06 (NS Flush) 2 ml BID IV FLUSH 02/14/17 09:00 02/14/17 09:00 (Zofran Inj) 4 mg Q6H PRN IVP 02/13/17 23:30 (Heparin Inj) 5,000 units Q12H SQ 02/14/17 09:00 02/14/17 10:09 (Tylenol) 650 mg Q6H PRN PO 02/13/17 23:30 ([place] 5-325 Mg) 1 tab Q4H PRN PO 02/13/17 23:30 (Morphine Inj) 2 mg Q3H PRN IV PUSH 02/13/17 23:30 02/14/17 13:38 (Mena-Colace) 1 tab BID PO 02/14/17 09:00 02/14/17 10:09 (Milk Of Magnesia Liq) 30 ml Q12H PRN PO 02/13/17 23:30 (Senokot) 17.2 mg Q12H PRN PO 02/13/17 23:30 (Dulcolax Supp) 10 mg DAILY PRN RECTAL 02/13/17 23:30 (Lactulose Liq) 30 ml DAILY PRN PO 02/13/17 23:30 (Nitroglycerin 2% Oint) 0.5 inch Q6HR PRN TOPICAL 02/13/17 23:30 (Coreg) 12.5 mg BID PO 02/14/17 09:00 02/14/17 10:11 (Sensipar) 30 mg DAILY PO 02/14/17 09:00 02/14/17 13:19 (Cleocin) 150 mg Q6H PO 02/13/17 23:30 02/14/17 13:31 (Apresoline) 50 mg TID PO 02/14/17 09:00 02/14/17 13:19 (Ismo) 20 mg BID PO 02/14/17 09:00 02/14/17 13:30 (Cozaar) 100 mg HS PO 02/14/17 21:00 (Remeron) 15 mg HS PO 02/14/17 21:00 (Procardia) 20 mg Q8HR PO 02/14/17 06:00 02/14/17 06:00 (Renvela) 1,600 mg TIDAC PO 02/14/17 08:00 02/14/17 13:19 (Protonix) 40 mg DAILY PO 02/14/17 09:00 02/14/17 13:30 (Ecotrin Ec) 81 mg DAILY PO 02/14/17 09:00 02/14/17 10:09 (Pravachol) 40 mg DAILY PO 02/14/17 09:00 02/14/17 13:20 (Catapres) 0.1 mg Q6H PRN PO 02/14/17 07:45 Sodium Chloride 1,000 ml @ 0 mls/hr Q0M PRN OTHER 02/14/17 11:18 (Heparin Inj) 8,000 units UNSCH PRN IV FLUSH 02/14/17 11:30 Sodium Chloride 1,000 ml @ 200 mls/hr Q5H PRN IV 02/14/17 11:18 Sodium Chloride 1,000 ml @ 0 mls/hr Q0M PRN OTHER 02/14/17 11:18 (Mannitol Inj) 12.5 gm UNSCH PRN IV 02/14/17 11:30 (Albumin 25% Inj) 25 gm UNSCH PRN IV 02/14/17 11:30 (NS Flush) 5 ml UNSCH PRN IV FLUSH 02/14/17 11:30 (Zofran Inj) 4 mg UNSCH PRN IV PUSH 02/14/17 11:30 (Tylenol) 650 mg UNSCH PRN PO 02/14/17 11:30 (Benadryl) 25 mg UNSCH PRN PO 02/14/17 11:30 (Nitrostat Sl) 0.4 mg UNSCH PRN SL 02/14/17 11:30 (Catapres) 0.1 mg UNSCH PRN PO 02/14/17 11:30 (Epogen Inj) 13,000 units UNSCH PRN IV 02/14/17 11:30 (Gelfoam 12 Mm/7 Mm Top) 1 foam UNSCH PRN TOP 02/14/17 11:30 (SINEquan) 300 mg HS PO 02/14/17 21:00 Family History Noncontributory Social History Denies smoking or alcohol use Physical Exam Vital Signs Vital Signs Date Time Temp Pulse Resp B/P (MAP) Pulse Ox O2 Delivery O2 Flow Rate FiO2 02/14/17 13:43 20 02/14/17 13:25 97.8 82 16 167/82 (110) 100 02/14/17 10:40 98.0 89 16 177/84 (115) 98 02/14/17 08:00 88 02/14/17 07:10 86 02/14/17 05:51 98.7 90 18 197/92 (127) 100 02/14/17 00:00 98.4 78 18 167/84 (111) 97 02/13/17 23:12 98.9 96 16 128/63 (84) 96 02/13/17 22:47 98 16 122/58 (79) 96 Room Air 02/13/17 22:46 99 18 152/88 (109) 99 Room Air 02/13/17 22:31 95 16 152/88 (109) 100 Room Air 02/13/17 22:29 95 Room Air 02/13/17 20:53 98 26 170/79 (109) 96 Physical Exam GENERAL: Well-nourished, well-developed patient. SKIN: Warm and dry. HEAD: Normocephalic. EYES: No scleral icterus. No injection or drainage. NECK: Supple, trachea midline. No JVD or lymphadenopathy. CARDIOVASCULAR: Regular rate and rhythm without murmurs, gallops, or rubs. RESPIRATORY: Breath sounds equal bilaterally. No accessory muscle use. GASTROINTESTINAL: Abdomen soft, non-tender, nondistended. EXTREMITIES: No cyanosis, or edema. AV fistula left arm NEUROLOGICAL: Awake, alert, and oriented x 3. Non-focal. Laboratory Laboratory Tests Test 02/13/17 22:20 02/14/17 04:23 White Blood Count 10.3 Red Blood Count 3.55 Hemoglobin 10.1 Hematocrit 31.2 Mean Corpuscular Volume 87.8 Mean Corpuscular Hemoglobin 28.4 Mean Corpuscular Hemoglobin Concent 32.3 Red Cell Distribution Width 21.8 Platelet Count 349 Mean Platelet Volume 7.3 Neutrophils (%) (Auto) 71.6 Lymphocytes (%) (Auto) 12.3 Monocytes (%) (Auto) 10.4 Eosinophils (%) (Auto) 5.1 Basophils (%) (Auto) 0.6 Neutrophils # (Auto) 7.4 Lymphocytes # (Auto) 1.3 Monocytes # (Auto) 1.1 Eosinophils # (Auto) 0.5 Basophils # (Auto) 0.1 CBC Comment DIFF FINAL Differential Comment Prothrombin Time 12.0 Prothromb Time International Ratio 1.1 Activated Partial Thromboplast Time 88.2 Blood Urea Nitrogen 66 Creatinine 12.00 Random Glucose 110 Total Protein 8.0 Albumin 2.9 Calcium Level 7.9 Magnesium Level 2.4 Alkaline Phosphatase 107 Aspartate Amino Transf (AST/SGOT) 11 Alanine Aminotransferase (ALT/SGPT) 12 Total Bilirubin 0.3 Sodium Level 141 Potassium Level 5.2 Chloride Level 105 Carbon Dioxide Level 22.4 Anion Gap 14 Estimat Glomerular Filtration Rate 6 Lactic Acid Level 0.7 Total Creatine Kinase 154 Creatine Kinase MB 4.7 Troponin I 0.09 0.09 B-Type Natriuretic Peptide 113 Lipase 226 Date/Time Source Procedure Growth Status 02/13/17 21:22 Wound Chest Gram Stain - Final Resulted 02/13/17 21:22 Wound Chest Wound Culture - Preliminary Resulted Result Diagram: 02/13/17221902/13/17 2220 Imaging Last Impressions Lung Scan-VQ Nuclear Medicine 02/14/17 0000 Signed Impressions: Service Date/Time: Tuesday, February 14, 2017 11:49 - CONCLUSION: Low probability scan for pulmonary embolus. Prieto Ramírez MD Chest CT 02/14/17 0000 Signed Impressions: Service Date/Time: Tuesday, February 14, 2017 10:17 - CONCLUSION: Minimal induration in the abdominal wall on the right without bony abnormality No suspicious lung lesions identified Nonspecific mediastinal and axillary adenopathy. Bill Gotti MD FACR Chest X-Ray 02/13/172102 Signed Impressions: Service Date/Time: Monday, February 13, 2017 21:08 - CONCLUSION: No evidence of acute cardiopulmonary disease. Casimiro Hair MD Assessment and Plan Problem List: (1) ESRD (end stage renal disease) on dialysis ICD Codes: N18.6 - End stage renal failure on dialysis; Z99.2 - Dependence on renal dialysis Status: Chronic Plan: He is seen during hemodialysis and is tolerating it well 3 L will be removed continue supportive care Chest x-ray was clear VQ scan is low probability follows with Dr. Richardson (2) Hypertension, accelerated ICD Codes: I10 - Hypertension, accelerated Status: Chronic Plan: Blood pressure is labile followed blood pressure after dialysis (3) Diabetes ICD Codes: E11.9 - Diabetes mellitus Status: Chronic Plan: Continue to monitor Problem Qualifiers (1) Diabetes: Andi Roth MD Feb 14, 2017 17:29
[2017-02-14] MEDS: MIRTAZAPINE 15 MG TAB PO SCH (20:44)
[2017-02-14] MEDS: ACETAMINOPHEN/HYDROcodone 325 MG/5 MG TAB PO PRN (20:45)
[2017-02-14] MEDS: DOXEPIN HCL 50 MG CAP PO SCH (20:46)
[2017-02-14] MEDS: LOSARTAN 50 MG TAB PO SCH (20:46)
[2017-02-14 20:59] LABS: AUTOMATED NEUTROPHIL # 8.6 TH/MM3 (1.8-7.7); BASOPHIL # 0.1 TH/MM3 (0-0.2); BASOPHIL % 0.9 % (0.0-2.0); EOSINOPHIL # 0.6 TH/MM3 (0-0.4); EOSINOPHIL % 5.3 % (0.0-4.0); HEMATOCRIT 30.6 % (39.0-51.0); HEMO FLAGS DIFF FINAL; LYMPH % 6.9 % (9.0-44.0); LYMPHOCYTE # 0.8 TH/MM3 (1.0-4.8); MEAN CELL VOLUME 87.3 FL (80.0-100.0); MEAN CORPUSCULAR HGB CONC 32.1 % (32.0-36.0); MONO % 8.3 % (0.0-8.0); NEUT % 78.6 % (16.0-70.0); PLATELET COUNT 364 TH/MM3 (150-450); RED BLOOD COUNT 3.51 MIL/MM3 (4.50-5.90); WHITE BLOOD COUNT 10.9 TH/MM3 (4.0-11.0)
[2017-02-14 21:20] LABS: ALKALINE PHOSPHATASE 111 U/L (45-117); ALT (GPT) 12 U/L (12-78); ANION GAP 10 MEQ/L (5-15); AST (GOT) 9 U/L (15-37); BICARBONATE 27.7 MEQ/L (21.0-32.0); BLOOD UREA NITROGEN 45 MG/DL (7-18); CHLORIDE 98 MEQ/L (98-107); GLOMERULAR FILTRATION RATE 8 ML/MIN (>89); POTASSIUM 4.7 MEQ/L (3.5-5.1); SODIUM (NA) 136 MEQ/L (136-145); TOTAL BILIRUBIN ADULT 0.3 MG/DL (0.2-1.0)
--- NOTE | 2017-02-14 21:44 | MB ---
cc: JAMES ENGEL DATE OF CONSULTATION 02/14/2017 HISTORY Mr. Jimenez is a 46-year-old black male with a history of end-stage disease on hemodialysis. He presented with very atypical substernal chest discomfort which is sharp, radiating to the back, worse with motion of his upper chest. He also has mild shortness of breath. His blood pressure on arrival was elevated at 170/79. His EKG showed no evidence of acute ischemia. PAST MEDICAL HISTORY Positive for: 1. End-stage renal disease on hemodialysis. 2. Hypertension. 3. Diabetes mellitus. 4. Anemia. 5. Hydradenitis. 6. Gastroesophageal reflux disease. 7. Diabetic gastroparesis. 8. Recurrent infection, abscesses. 9. History of C diff infection. 10. AV fistula placement. 11. Chest port in 2012. 12. The patient had negative PET myocardial perfusion study in 01/2016. He was diagnosed in hospital with similar atypical chest in 11/2016. His V/Q scan in 12/2016 was normal. ALLERGIES METOCLOPRAMIDE. IOHEXOL, IODIXANOL, GADOTERIDOL, GADODIAMIDE, GADOBENIC ACID, DIATRIZOATE. FISH CONTAINING PRODUCTS. MEDICATIONS Include: 1. Losartan. 2. Remeron. 3. Doxepin. 5. Clindamycin. 6. Nifedipine. 7. Renvela. 8. Metoprolol. 9. Insulin sliding scale. 10. Aspirin. 11. Protonix. 12. Isosorbide. 13. Hydralazine. 14. Doxepin. 15. Sensipar. 16. Coreg. 17. Amlodipine. 18. Mena-Colace. 19. Subcutaneous heparin. SOCIAL HISTORY The patient does not smoke. He does not drink alcohol. FAMILY HISTORY Negative for heart disease. REVIEW OF SYSTEMS Otherwise negative. PHYSICAL EXAMINATION VITAL SIGNS: Blood pressure 162/82, pulse 82 and regular. HEENT: Negative. NECK: 2+ carotid upstrokes. No bruits. LUNGS: Clear. HEART: Regular with no murmur, gallop or rub. ABDOMEN: Soft. No bruits. EXTREMITIES: Without edema. 2+ distal pulses. NEUROLOGIC: Examination is grossly nonfocal. EKG was reviewed and showed normal sinus rhythm with normal axis and intervals, left atrial enlargement, no acute changes. LABORATORY DATA Hemoglobin 10.1. Potassium 5.2, creatinine 12. AST 11, ALT 12. CK 154, CK-MB 4.7. Troponin 0.09 and 0.09. BNP 115. DIAGNOSES 1. Atypical, noncardiac chest pain. 2. End-stage renal disease on hemodialysis. 3. Hypertension. 4. Diabetes mellitus. 5. Gastroesophageal reflux disease. DISPOSITION Mr. Jimenez has very atypical chest pain which is reproducible with chest palpation. His VQ scan was low probability for pulmonary embolism. His slight troponin abnormality is related to his end-stage renal disease. His PET myocardial perfusion study last year showed no evidence of ischemia. He can be discharged home from a cardiac standpoint. I will see him back for followup in our office after discharge. James Engel MD OQ/KK /3:46 PM /8:41 PM SHAYNE
[2017-02-14] MEDS: diphenhydrAMINE HCL 25 MG CAP PO PRN (22:56)
[2017-02-15] VITALS (9 sets, daily range): BP systolic 120–156; BP diastolic 57–73; PULSE 82–91; RESP 16–18; TEMP 98.1–99.2; O2SAT 91–98
[2017-02-15] MEDS: NIFEdipine 20 MG CAP PO SCH ×3 (05:00→23:23)
[2017-02-15] MEDS: ACETAMINOPHEN/HYDROcodone 325 MG/5 MG TAB PO PRN (05:00)
[2017-02-15] MEDS: CLINDAMYCIN 150 MG CAP PO SCH ×5 (05:00→23:23)
[2017-02-15] MEDS: MORPHINE SULFATE 4 MG/ML INJ IV PUSH PRN ×3 (06:52→22:19)
--- NOTE | 2017-02-15 07:26 | MB ---
cc: IRVIN RODRIGUEZ M.D. DATE OF CONSULTATION 02/14/2017 REASON FOR CONSULTATION Right side chest infected wound in proximity to a central line port. Consult made by the medical service being concerned about the possibility of trying to protect the central line port. HISTORY This is a 46-year-old black male who is actually known to me for almost the past 20 years. He has had numerous areas of hidradenitis operated by myself including starting from the back of his neck, both axilla, both groins, perineum, abdomen, scrotum and buttocks over several years. He is diabetic with renal failure, dialysis and also attendant medical problems. He has done fairly well overall being able to heal most of his wounds. He actually never had any skin graft done despite very large open areas that had resulted particularly on both groins. The patient also is complaining of painful hidradenitis area involving his buttocks more so on the right than the left. The wounds on his chest are also similar in nature at the junction of his chest to the abdomen while the central line port is actually approximately 2 inches below the clavicle level. There is also an active area of painful hidradenitis in his left axilla and that he wants addressed at the current time. PAST MEDICAL HISTORY The patient's past medical history also includes: 1. Hypertension 2. Hyperlipidemia 3. Diabetes 4. End-stage renal disease 5. Psychiatric issues 6. Gastritis 7. Multiple previous surgeries mostly for the hidradenitis excision. 8. The patient recently has been under treatment with Dr. Ca at the [facility]. CURRENT MEDICATIONS The current medications are listed in the chart including the antibiotic and supportive care. ALLERGIES The patient is not allergic to any known medications, however he is allergic to fish-containing products. There are several medications listed on the current chart which are being tested, but may or may not be actual allergies. The patient is not on any anticoagulation nice this time. SOCIAL HISTORY He does not smoke. No alcohol or drug abuse. REVIEW OF SYSTEMS He is also not hepatitis or HIV positive. PHYSICAL EXAM Examination shows a 46-year-old black male with stable vital signs. The patient is alert, cooperative, fully oriented. He is emotionally stable. GENERAL: The general examination is grossly within acceptable range and as per the emergency room records, the local examination of the area is under question. LEFT AXILLA: The left axilla has a small opening of purulent discharge. The underlying mass is approximately 1.5 cm in diameter. It is present on the anterior axillary fold. CHEST: There are two open areas on the right chest just below the inframammary fold line. The patient does have a fairly large breast volume mostly due to fatty excess. The ulcers are again typical of hidradenitis, but they are more superficial and more horizontal in nature. They are more close to the costal margin. The central line port is actually 1-1/2 to 2 inches below the collarbone. It is completely covered with a clean dressing. BUTTOCKS: The areas on the buttocks were pointed out by the patient. I did not examined it during this examination, however it will be attended to eventually in the operating room when the patient can be placed in a proper position. RECOMMENDATIONS The patient can have all the areas surgically excised and converted into clean wounds. They will be allowed to heal secondarily and in the meantime the patient can continue with his medical care. I will take him to the OR possibly tomorrow or Tuesday when time is available. The patient was also advised that after the surgery, he will need to continue with Dr. Ca on an outpatient basis or with the wound care center at [facility]. I will not be able to continue his care in my office since I have slowed down in my practice and I do not accept any more new patients or insurance cases in my private office. The patient understands and he is willing to accept the help that I can provide him while he is in the hospital. signed, not fully reviewed MD NELLY Guerin/ALIZA /7:54 PM /7:12 AM SHAYNE
[2017-02-15] MEDS: INSULIN ASPART SUPPLEMENTAL SCALE SQ SCH ×4 (08:00→21:00)
[2017-02-15] MEDS: SODIUM CHLORIDE 0.9% FLUSH 10 ML FLUSH IV FLUSH SCH ×2 (09:00→22:18)
--- NOTE | 2017-02-15 09:37 | HHI.PR ---
Subjective Remarks Follow-up for chest pain and shortness of breath. The patient continues to have right lower chest wall pain that radiates to his right shoulder and back. The pain is worse when his right chest is touched, when he moves, rather he tries to breathe deep. The patient also mentions that he's been having left upper extremity swelling for the past few weeks in the arm with his AV fistula. Fistula was placed about 5 years ago, follows with a surgeon at [facility]. Objective Vitals Vital Signs Date Time Temp Pulse Resp B/P (MAP) Pulse Ox O2 Delivery O2 Flow Rate FiO2 02/15/17 08:32 95 21 02/15/17 08:21 98.6 89 18 138/65 (89) 95 02/15/17 06:33 18 02/15/17 05:32 21 02/15/17 04:23 98.1 91 18 120/57 (78) 91 02/14/17 23:17 97.9 95 18 150/76 (100) 95 02/14/17 23:03 18 02/14/17 20:15 99.7 102 18 147/66 (93) 94 02/14/17 13:25 97.8 82 16 167/82 (110) 100 02/14/17 10:40 98.0 89 16 177/84 (115) 98 I/O 02/14/17 02/14/17 02/14/17 02/15/17 02/15/17 02/15/17 07:00 15:00 23:00 07:00 15:00 23:00 Intake Total 250 ml 250 ml 200 ml Balance 250 ml 250 ml 200 ml Intake Oral 200 ml 200 ml IV Total 250 ml 50 ml Result Diagram: 02/14/17204102/14/172041 Imaging Last Impressions Lung Scan-VQ Nuclear Medicine 02/14/17 0000 Signed Impressions: Service Date/Time: Tuesday, February 14, 2017 11:49 - CONCLUSION: Low probability scan for pulmonary embolus. Prieto Ramírez MD Chest CT 02/14/17 0000 Signed Impressions: Service Date/Time: Tuesday, February 14, 2017 10:17 - CONCLUSION: Minimal induration in the abdominal wall on the right without bony abnormality No suspicious lung lesions identified Nonspecific mediastinal and axillary adenopathy. Bill Gotti MD FACR Chest X-Ray 02/13/172102 Signed Impressions: Service Date/Time: Monday, February 13, 2017 21:08 - CONCLUSION: No evidence of acute cardiopulmonary disease. Casimiro Hair MD Objective Remarks GENERAL: Well-developed well-nourished. Appears uncomfortable, but in no acute distress. SKIN: Right anterior chest wall shallow ulceration with scant serosanguineous drainage and no surrounding erythema. Port in place on right upper chest wall. Old hidradenitis scars in the axilla bilaterally. HEENT: Normocephalic. Pupils equal and round. Mucous membranes pink and moist. CARDIOVASCULAR: Regular rate and rhythm. No murmur appreciated. Chest wall mildly tender to palpation. RESPIRATORY: No accessory muscle use. Clear to auscultation. Breath sounds equal bilaterally. GASTROINTESTINAL: Abdomen soft, non-tender, nondistended. Bowel sounds x4. MUSCULOSKELETAL: LUE AVF with good thrill, some mild to moderate edema distal to the fistula, no warmth or redness. No clubbing or cyanosis. No edema. NEUROLOGICAL: Awake and alert. No focal neurological deficits. Moves upper and lower extremities spontaneously. Normal speech. PSYCHIATRIC: Appropriate mood and affect; insight and judgment normal. A/P Problem List: (1) Chest pain ICD Code: R07.9 - Chest pain Status: Acute (2) Elevated troponin ICD Code: R79.89 - Other specified abnormal findings of blood chemistry Status: Chronic (3) ESRD (end stage renal disease) on dialysis ICD Code: N18.6 - End stage renal failure on dialysis; Z99.2 - Dependence on renal dialysis Status: Chronic (4) Skin infection, bacterial ICD Code: L08.9 - Local infection of the skin and subcutaneous tissue, unspecified; B96.89 - Other specified bacterial agents as the cause of diseases classified elsewhere Status: Acute (5) DM (diabetes mellitus) ICD Code: E11.9 - Type 2 diabetes mellitus without complications Status: Chronic Assessment and Plan 46-year-old male with a PMH of HTN, Hyperlipidemia, DM, Hidradenitis Suppurativa , ESRD on HD M/W/F, Anxiety, Depression and Gastritis and presented with complaints of chest pain Atypical Chest Pain and shortness of breath: Suspect secondary to infected chest wall wound as below. Unclear etiology; etiologies include possible ACS, PE, wound/abscess, dialysis catheter malfunction. Reviewed: Trop 0.09, 0.09, 0.06; previously 0.17 on 08/09/16; flat, nonischemic. EKG w/ no ischemic changes. VQ scan with low probability for PE. -Discussed with patient's bee rancher, Dr. Engel, doubt cardiac etiology, cleared from cardiology standpoint -Continue ASA, Statin, B-herman, NTG/Morphine prn. -02 and nebs as needed -Incentive spirometry Chest Wall Infection: h/o Hidradenitis, on antibiotics x1 wk for chest wall infection. Reviewed: Afebrile with no leukocytosis. Chest CT showed induration in the upper abdominal wall on the right with nonspecific mediastinal and axillary adenopathy. -Wound culture collected, results pending -Continue oral clindamycin pending wound culture -Consulted plastic surgery, planning on chest wound excision ESRD on HD: M/W/F. Last HD on Tuesday w/ no complications, -consulted Nephrology to resume HD. -Continue cinacalcet and sevelamer Hypertension: BP is labile. Currently elevated, likely compounded by pain and due for dialysis. -Continue losartan, nifedipine, carvedilol, hydralazine, Imdur -Clonidine as needed DM: Sliding scale w/ Accu-Cheks. DVT Prophylaxis: Heparin sq Discharge Planning Follow-up wound culture and plastic surgery recommendations Pipo Cleary Feb 15, 2017 09:37
[2017-02-15] MEDS ORDERED: RESP: ALBUTEROL 2.5 MG/IPRATROPIUM 0.5 MG NEB (PRN) NEB (09:45)
[2017-02-15] MEDS: SEVELAMER CARBONATE 800 MG TAB PO SCH ×4 (11:19→18:44)
[2017-02-15] MEDS: HEPARIN SODIUM - SQ 10,000 UNITS/ML VIAL SQ SCH ×2 (11:20→22:18)
[2017-02-15] MEDS: hydrALAZINE HCL 100 MG TAB PO SCH ×4 (11:20→18:45)
[2017-02-15] MEDS: CARVEDILOL 12.5 MG TAB PO SCH ×2 (11:21→22:17)
[2017-02-15] MEDS: DOCUSATE SODIUM 50 MG/SENNA 8.6 MG TAB PO SCH ×2 (11:21→21:00)
[2017-02-15] MEDS: ASPIRIN EC 81 MG TABEC PO SCH (11:21)
[2017-02-15] MEDS: CINACALCET HYDROCHLORIDE 30 MG TAB PO SCH (11:21)
[2017-02-15] MEDS: PRAVASTATIN SOD 40 MG TAB PO SCH (11:21)
[2017-02-15] MEDS: ISOSORBIDE MONONITRATE 20 MG TAB PO SCH ×2 (11:22→22:16)
[2017-02-15] MEDS: PANTOPRAZOLE SOD 40 MG DELAYED RELEASE TAB PO SCH (11:22)
--- NOTE | 2017-02-15 13:23 | HHI.NPPN ---
Subjective History of Present Illness 46 year old Black male with ESRD DM, HTN, CP Additional Remarks chest wound Review of Systems General Constitutional: Fatigue Musculoskeletal MS: Pain/Stiffness Objective Data Data 02/15/17 02/16/17 19:00 07:00 Intake Total 200 ml Balance 200 ml Intake Oral 200 ml Vital Signs Date Time Temp Pulse Resp B/P (MAP) Pulse Ox O2 Delivery O2 Flow Rate FiO2 02/15/17 12:53 98.8 85 16 129/60 (83) 93 02/15/17 08:32 95 21 02/15/17 08:21 98.6 89 18 138/65 (89) 95 02/15/17 06:33 18 02/15/17 05:32 21 02/15/17 04:23 98.1 91 18 120/57 (78) 91 02/14/17 23:17 97.9 95 18 150/76 (100) 95 02/14/17 23:03 18 02/14/17 20:15 99.7 102 18 147/66 (93) 94 02/14/17 13:25 97.8 82 16 167/82 (110) 100 -: 02/14/17204102/14/172041 Physical Exam General Appearance: Well Developed Neck Neck Exam: Neck Supple Pulmonary Resp Exam: Clear Bilaterally, Breath Sounds Equal Cardiology CV Exam: Regular, Normal Sinus Rhythm Gastrointestinal/Abdomen GI Exam: Soft, Non-Tender, Bowel Sounds Present Integumentary Skin Exam: Lesion(s) Extremeties Extremities Exam: No Edema Assessment/Plan Problem List: (1) ESRD (end stage renal disease) on dialysis ICD Codes: N18.6 - End stage renal failure on dialysis; Z99.2 - Dependence on renal dialysis Status: Chronic Plan: He is on hemodialysis MWF Chest x-ray was clear VQ scan is low probability follows with Dr. Richardson Staying for chest wound fu with Plastic surgery (2) Hypertension, accelerated ICD Codes: I10 - Hypertension, accelerated Status: Chronic Plan: Blood pressure is labile followed blood pressure after dialysis (3) Diabetes ICD Codes: E11.9 - Diabetes mellitus Status: Chronic Plan: Continue to monitor Problem Qualifiers (1) Diabetes: Andi Roth MD Feb 15, 2017 13:23
[2017-02-15] MEDS: ONDANSETRON HCL 4 MG/2 ML VIAL IVP PRN ×2 (13:38→22:31)
[2017-02-15] MEDS: ONDANSETRON HCL 4 MG/2 ML VIAL IV PUSH PRN (13:44)
--- NOTE | 2017-02-15 15:09 | PD.CARD.PN ---
Subjective Subjective Remarks Very atypical CP, SOB improved, eating lunch Objective Medications Active Medications Albuterol/ Ipratropium (Duoneb Neb) 1 ampule Q4HR NEB PRN NEB; Start 02/15/17 at 09:45 Doxepin HCl (SINEquan) 300 mg HS PO Last administered on 02/14/17 20:46; Admin Dose 300 MG; Start 02/14/17 at 21:00 Heparin Sodium (Porcine) (Heparin Central Flush) 200 units DAILY IV FLUSH; Start 02/16/17 at 09:00 Losartan Potassium (Cozaar) 100 mg HS PO Last administered on 02/14/17 20:46; Admin Dose 100 MG; Start 02/14/17 at 21:00 Mirtazapine (Remeron) 15 mg HS PO Last administered on 02/14/17 20:44; Admin Dose 15 MG; Start 02/14/17 at 21:00 Vital Signs / I&O Vital Signs Date Time Temp Pulse Resp B/P (MAP) Pulse Ox O2 Delivery O2 Flow Rate FiO2 02/15/17 12:53 98.8 85 16 129/60 (83) 93 02/15/17 11:19 20 02/15/17 08:32 95 21 02/15/17 08:21 98.6 89 18 138/65 (89) 95 02/15/17 06:33 18 02/15/17 05:32 21 02/15/17 04:23 98.1 91 18 120/57 (78) 91 02/14/17 23:17 97.9 95 18 150/76 (100) 95 02/14/17 20:15 99.7 102 18 147/66 (93) 94 I/O 02/14/17 02/14/17 02/14/17 02/15/17 02/15/17 02/15/17 07:00 15:00 23:00 07:00 15:00 23:00 Intake Total 250 ml 250 ml 200 ml Output Total 3000 ml Balance 250 ml -2750 ml 200 ml Intake Oral 200 ml 200 ml IV Total 250 ml 50 ml Output Hemodialysis 3000 ml Physical Exam GENERAL: In NAD SKIN: Warm and dry. HEAD: Normocephalic. EYES: No scleral icterus. No injection or drainage. NECK: Supple, trachea midline. No JVD or lymphadenopathy. CARDIOVASCULAR: Regular rate and rhythm without murmurs, gallops, or rubs. RESPIRATORY: Breath sounds equal bilaterally. No accessory muscle use. Few rhonchi. GASTROINTESTINAL: Abdomen soft, non-tender, nondistended. MUSCULOSKELETAL: No cyanosis, trace edema. Laboratory Laboratory Tests Test 02/14/17 20:42 White Blood Count 10.9 TH/MM3 Red Blood Count 3.51 MIL/MM3 Hemoglobin 9.8 GM/DL Hematocrit 30.6 % Mean Corpuscular Volume 87.3 FL Mean Corpuscular Hemoglobin 28.0 PG Mean Corpuscular Hemoglobin Concent 32.1 % Red Cell Distribution Width 22.0 % Platelet Count 364 TH/MM3 Mean Platelet Volume 7.0 FL Neutrophils (%) (Auto) 78.6 % Lymphocytes (%) (Auto) 6.9 % Monocytes (%) (Auto) 8.3 % Eosinophils (%) (Auto) 5.3 % Basophils (%) (Auto) 0.9 % Neutrophils # (Auto) 8.6 TH/MM3 Lymphocytes # (Auto) 0.8 TH/MM3 Monocytes # (Auto) 0.9 TH/MM3 Eosinophils # (Auto) 0.6 TH/MM3 Basophils # (Auto) 0.1 TH/MM3 CBC Comment DIFF FINAL Differential Comment Blood Urea Nitrogen 45 MG/DL Creatinine 8.98 MG/DL Random Glucose 148 MG/DL Total Protein 8.2 GM/DL Albumin 3.0 GM/DL Calcium Level 9.2 MG/DL Alkaline Phosphatase 111 U/L Aspartate Amino Transf (AST/SGOT) 9 U/L Alanine Aminotransferase (ALT/SGPT) 12 U/L Total Bilirubin 0.3 MG/DL Sodium Level 136 MEQ/L Potassium Level 4.7 MEQ/L Chloride Level 98 MEQ/L Carbon Dioxide Level 27.7 MEQ/L Anion Gap 10 MEQ/L Estimat Glomerular Filtration Rate 8 ML/MIN Troponin I 0.06 NG/ML Assessment and Plan Problem List: (1) Atypical chest pain ICD Codes: R07.89 - Other chest pain (2) Hypertension ICD Codes: I10 - Hypertension Status: Chronic (3) DM (diabetes mellitus) ICD Codes: E11.9 - Type 2 diabetes mellitus without complications Status: Chronic (4) ESRD (end stage renal disease) on dialysis ICD Codes: N18.6 - End stage renal failure on dialysis; Z99.2 - Dependence on renal dialysis Status: Chronic (5) DEANNA (obstructive sleep apnea) ICD Codes: G47.33 - Obstructive sleep apnea (adult) (pediatric) Status: Acute Assessment and Plan Atypical, noncardiac CP, likely of musculoskeletal origin. No evidence of ACS. Continue current program. No new cardiac issues. Tolerated dialysis well. Will schedule cardiology outpatient f/u. James Engel MD Feb 15, 2017 15:09
[2017-02-15] MEDS: DOXEPIN HCL 50 MG CAP PO SCH (22:16)
[2017-02-15] MEDS: LOSARTAN 50 MG TAB PO SCH (22:17)
[2017-02-15] MEDS: MIRTAZAPINE 15 MG TAB PO SCH (22:17)
[2017-02-16] VITALS (7 sets, daily range): BP systolic 104–148; BP diastolic 55–67; PULSE 79–88; RESP 18–20; TEMP 97.4–99; O2SAT 90–100
[2017-02-16] MEDS: NIFEdipine 20 MG CAP PO SCH ×3 (05:35→22:00)
[2017-02-16] MEDS: CLINDAMYCIN 150 MG CAP PO SCH ×3 (05:35→17:13)
[2017-02-16] MEDS: INSULIN ASPART SUPPLEMENTAL SCALE SQ SCH ×4 (08:00→21:00)
[2017-02-16] MEDS: SODIUM CHLORIDE 0.9% FLUSH 10 ML FLUSH IV FLUSH SCH ×2 (08:15→21:00)
[2017-02-16] MEDS: PANTOPRAZOLE SOD 40 MG DELAYED RELEASE TAB PO SCH (08:15)
[2017-02-16] MEDS: CINACALCET HYDROCHLORIDE 30 MG TAB PO SCH (08:16)
[2017-02-16] MEDS: DOCUSATE SODIUM 50 MG/SENNA 8.6 MG TAB PO SCH ×2 (08:16→21:00)
[2017-02-16] MEDS: hydrALAZINE HCL 100 MG TAB PO SCH ×3 (08:16→17:13)
[2017-02-16] MEDS: CARVEDILOL 12.5 MG TAB PO SCH ×2 (08:16→21:56)
[2017-02-16] MEDS: SEVELAMER CARBONATE 800 MG TAB PO SCH ×3 (08:17→17:13)
[2017-02-16] MEDS: ISOSORBIDE MONONITRATE 20 MG TAB PO SCH ×2 (08:17→21:56)
[2017-02-16] MEDS: PRAVASTATIN SOD 40 MG TAB PO SCH (08:17)
[2017-02-16] MEDS: HEPARIN SODIUM - SQ 10,000 UNITS/ML VIAL SQ SCH ×2 (08:18→21:00)
[2017-02-16] MEDS: ASPIRIN EC 81 MG TABEC PO SCH (08:18)
--- NOTE | 2017-02-16 08:23 | HHI.PR ---
Subjective Remarks Follow up for atypical chest pain, hydradenitis infection. The patient reports continued pain and drainage at right lower anterior chest and right buttocks. Denies fevers/chills. Denies any specific chest pains except where his wound is located. Denies any shortness of breath. He has no other medical complaints at this time. Objective Vitals Vital Signs Date Time Temp Pulse Resp B/P (MAP) Pulse Ox O2 Delivery O2 Flow Rate FiO2 02/16/17 07:46 98.2 82 18 115/55 (75) 94 02/16/17 04:20 79 02/16/17 03:43 98.7 79 18 104/57 (73) 90 02/16/17 00:00 88 02/15/17 23:23 18 02/15/17 23:02 99.2 88 18 127/68 (87) 93 02/15/17 20:40 97 21 02/15/17 20:15 98.5 84 18 156/73 (100) 92 02/15/17 20:14 84 02/15/17 17:44 98.8 82 16 133/64 (87) 98 02/15/17 12:53 98.8 85 16 129/60 (83) 93 02/15/17 08:32 95 21 02/15/17 08:21 98.6 89 18 138/65 (89) 95 I/O 02/15/17 02/15/17 02/15/17 02/16/17 02/16/17 02/16/17 07:00 15:00 23:00 07:00 15:00 23:00 Intake Total 200 ml 240 ml Balance 200 ml 240 ml Intake Oral 200 ml 240 ml Result Diagram: 02/14/17204102/14/172041 Imaging Last Impressions Lung Scan-VQ Nuclear Medicine 02/14/17 0000 Signed Impressions: Service Date/Time: Tuesday, February 14, 2017 11:49 - CONCLUSION: Low probability scan for pulmonary embolus. Prieto Ramírez MD Chest CT 02/14/17 0000 Signed Impressions: Service Date/Time: Tuesday, February 14, 2017 10:17 - CONCLUSION: Minimal induration in the abdominal wall on the right without bony abnormality No suspicious lung lesions identified Nonspecific mediastinal and axillary adenopathy. Bill Gotti MD FACR Chest X-Ray 02/13/172102 Signed Impressions: Service Date/Time: Monday, February 13, 2017 21:08 - CONCLUSION: No evidence of acute cardiopulmonary disease. Casimiro Hair MD Objective Remarks GENERAL: Well-nourished, well-developed middle aged male patient in [facility]. SKIN: Warm and dry. Right anterior chest wall with shallow ulceration with scant serosanguineous drainage, no surrounding erythema. Port at right upper chest wall. Old hidradenitis scars in the axilla bilaterally. Right posterior buttocks with hidradenitis wounds, covered with dressing, CDI. HEENT: Normocephalic. Atraumatic. Pupils equal and round. Mucous membranes pink and moist. CARDIOVASCULAR: Regular rate and rhythm. S1, S2 noted. No murmur appreciated. Right lower anterior chest wall TTP. RESPIRATORY: No accessory muscle use. Clear to auscultation. Breath sounds equal bilaterally. GASTROINTESTINAL: Abdomen soft, non-tender, nondistended. Normoactive bowel sounds x4. MUSCULOSKELETAL: No obvious deformities. Extremities without clubbing, cyanosis , or edema. LUE AV fistula, positive thrill. NEUROLOGICAL: Awake and alert. No obvious cranial nerve deficits. Motor grossly within normal limits. Normal speech. PSYCHIATRIC: Appropriate mood and affect; insight and judgment normal. Medications and IVs Current Medications Medications (Trade) Dose Ordered Sig/Bulmaro Route Start Time Stop Time Status Last Admin (NS Flush) 2 ml UNSCH PRN IVF 02/13/17 21:15 02/13/17 22:28 (D50w (Vial) Inj) 50 ml UNSCH PRN IV 02/13/17 23:30 (Glucagon Inj) 1 mg UNSCH PRN OTHER 02/13/17 23:30 (NovoLOG SUPPLEMENTAL SCALE) 1 ACHS SLIDING SCALE SQ 02/14/17 08:00 02/14/17 12:00 (NS Flush) 2 ml UNSCH PRN IV FLUSH 02/13/17 23:30 02/14/17 05:06 (NS Flush) 2 ml BID IV FLUSH 02/14/17 09:00 02/15/17 22:18 (Zofran Inj) 4 mg Q6H PRN IVP 02/13/17 23:30 02/15/17 22:31 (Heparin Inj) 5,000 units Q12H SQ 02/14/17 09:00 02/15/17 22:18 (Tylenol) 650 mg Q6H PRN PO 02/13/17 23:30 (Gordon 5-325 Mg) 1 tab Q4H PRN PO 02/13/17 23:30 02/15/17 05:00 (Morphine Inj) 2 mg Q3H PRN IV PUSH 02/13/17 23:30 02/15/17 22:19 (Mena-Colace) 1 tab BID PO 02/14/17 09:00 02/15/17 11:21 (Milk Of Magnesia Liq) 30 ml Q12H PRN PO 02/13/17 23:30 (Senokot) 17.2 mg Q12H PRN PO 02/13/17 23:30 (Dulcolax Supp) 10 mg DAILY PRN RECTAL 02/13/17 23:30 (Lactulose Liq) 30 ml DAILY PRN PO 02/13/17 23:30 (Nitroglycerin 2% Oint) 0.5 inch Q6HR PRN TOPICAL 02/13/17 23:30 (Coreg) 12.5 mg BID PO 02/14/17 09:00 02/15/17 22:17 (Sensipar) 30 mg DAILY PO 02/14/17 09:00 02/15/17 11:21 (Cleocin) 150 mg Q6H PO 02/13/17 23:30 02/16/17 05:35 (Apresoline) 50 mg TID PO 02/14/17 09:00 02/15/17 18:00 (Ismo) 20 mg BID PO 02/14/17 09:00 02/15/17 22:16 (Cozaar) 100 mg HS PO 02/14/17 21:00 02/15/17 22:17 (Remeron) 15 mg HS PO 02/14/17 21:00 02/15/17 22:17 (Procardia) 20 mg Q8HR PO 02/14/17 06:00 02/16/17 05:35 (Renvela) 1,600 mg TIDAC PO 02/14/17 08:00 02/15/17 17:00 (Protonix) 40 mg DAILY PO 02/14/17 09:00 02/15/17 11:22 (Ecotrin Ec) 81 mg DAILY PO 02/14/17 09:00 02/15/17 11:21 (Pravachol) 40 mg DAILY PO 02/14/17 09:00 02/15/17 11:21 (Catapres) 0.1 mg Q6H PRN PO 02/14/17 07:45 Sodium Chloride 1,000 ml @ 0 mls/hr Q0M PRN OTHER 02/14/17 11:18 (Heparin Inj) 8,000 units UNSCH PRN IV FLUSH 02/14/17 11:30 Sodium Chloride 1,000 ml @ 200 mls/hr Q5H PRN IV 02/14/17 11:18 Sodium Chloride 1,000 ml @ 0 mls/hr Q0M PRN OTHER 02/14/17 11:18 (Mannitol Inj) 12.5 gm UNSCH PRN IV 02/14/17 11:30 (Albumin 25% Inj) 25 gm UNSCH PRN IV 02/14/17 11:30 (NS Flush) 5 ml UNSCH PRN IV FLUSH 02/14/17 11:30 (Zofran Inj) 4 mg UNSCH PRN IV PUSH 02/14/17 11:30 02/15/17 13:44 (Tylenol) 650 mg UNSCH PRN PO 02/14/17 11:30 (Benadryl) 25 mg UNSCH PRN PO 02/14/17 11:30 02/14/17 22:56 (Nitrostat Sl) 0.4 mg UNSCH PRN SL 02/14/17 11:30 (Catapres) 0.1 mg UNSCH PRN PO 02/14/17 11:30 (Epogen Inj) 13,000 units UNSCH PRN IV 02/14/17 11:30 (Gelfoam 12 Mm/7 Mm Top) 1 foam UNSCH PRN TOP 02/14/17 11:30 (SINEquan) 300 mg HS PO 02/14/17 21:00 02/15/17 22:16 (Heparin Central Flush) 200 units DAILY IV FLUSH 02/16/17 09:00 (Duoneb Neb) 1 ampule Q4HR NEB PRN NEB 02/15/17 09:45 A/P Problem List: (1) Chest pain ICD Code: R07.9 - Chest pain Status: Acute (2) Elevated troponin ICD Code: R79.89 - Other specified abnormal findings of blood chemistry Status: Chronic (3) ESRD (end stage renal disease) on dialysis ICD Code: N18.6 - End stage renal failure on dialysis; Z99.2 - Dependence on renal dialysis Status: Chronic (4) Skin infection, bacterial ICD Code: L08.9 - Local infection of the skin and subcutaneous tissue, unspecified; B96.89 - Other specified bacterial agents as the cause of diseases classified elsewhere Status: Acute (5) DM (diabetes mellitus) ICD Code: E11.9 - Type 2 diabetes mellitus without complications Status: Chronic Assessment and Plan 46-year-old male with a PMH of HTN, Hyperlipidemia, DM, Hidradenitis Suppurativa , ESRD on HD M/W/F, Anxiety, Depression and Gastritis and presented with complaints of chest pain Atypical Chest Pain and Dyspnea: Suspect secondary to infected chest wall wound as below. Rule out possible ACS, PE, dialysis catheter malfunction. Reviewed: Trop 0.09, 0.09, 0.06; previously 0.17 on 08/09/16; flat, nonischemic. EKG w/ no ischemic changes. VQ scan with low probability for PE. -Discussed with patient's film color tester, Dr. Engel, doubt cardiac etiology, cleared from cardiology standpoint -Continue ASA, Statin, B-herman, NTG/Morphine prn. -O2 and nebs as needed -Incentive spirometry Chest Wall Infection, Failed Outpatient: secondary to Hidradenitis, on antibiotics x1 wk for chest wall infection. Reviewed: Afebrile with no leukocytosis. Chest CT showed induration in the upper abdominal wall on the right with nonspecific mediastinal and axillary adenopathy. -Wound culture collected, results pending -Continue oral clindamycin pending wound culture -Consulted plastic surgery, planning on chest and buttocks wound excision in OR today ESRD on HD: M/W/F. Last HD on Tuesday w/ no complications, -consulted Nephrology to resume HD. -Continue cinacalcet and sevelamer Hypertension: BP is labile. Currently elevated, likely compounded by pain and due for dialysis. -Continue losartan, nifedipine, carvedilol, hydralazine, Imdur -Clonidine as needed DM: Sliding scale w/ Accu-Cheks. DVT Prophylaxis: Heparin sq Jodee Shrestha PA-C Feb 16, 2017 8:23 am
[2017-02-16] MEDS: ACETAMINOPHEN/HYDROcodone 325 MG/5 MG TAB PO PRN ×2 (08:26→21:54)
[2017-02-16] MEDS ORDERED: ONDANSETRON HCL 4 MG/2 ML VIAL IV PUSH ONE (09:30)
[2017-02-16] MEDS ORDERED: NEOSTIGMINE 3 MG/3 ML SYR IV ONE (09:30)
[2017-02-16] MEDS ORDERED: GLYCOPYRROLATE 1 MG/5 ML SYRINGE IV PUSH ONE (09:30)
[2017-02-16] MEDS ORDERED: PROPOFOL 200 MG/20 ML AMP IV ONE (09:30)
--- NOTE | 2017-02-16 09:47 | HHI.NPPN ---
Subjective History of Present Illness 46 year old Black male with ESRD DM, HTN, CP Additional Remarks chest wound Review of Systems General Constitutional: Fatigue Musculoskeletal MS: Pain/Stiffness Objective Data Data Vital Signs Date Time Temp Pulse Resp B/P (MAP) Pulse Ox O2 Delivery O2 Flow Rate FiO2 02/16/17 07:46 98.2 82 18 115/55 (75) 94 02/16/17 04:20 79 02/16/17 03:43 98.7 79 18 104/57 (73) 90 02/16/17 00:00 88 02/15/17 23:23 18 02/15/17 23:02 99.2 88 18 127/68 (87) 93 02/15/17 20:40 97 21 02/15/17 20:15 98.5 84 18 156/73 (100) 92 02/15/17 20:14 84 02/15/17 17:44 98.8 82 16 133/64 (87) 98 02/15/17 12:53 98.8 85 16 129/60 (83) 93 -: 02/14/17204102/14/172041 Physical Exam General Appearance: Well Developed Neck Neck Exam: Neck Supple Pulmonary Resp Exam: Clear Bilaterally, Breath Sounds Equal Cardiology CV Exam: Regular, Normal Sinus Rhythm Gastrointestinal/Abdomen GI Exam: Soft, Non-Tender, Bowel Sounds Present Integumentary Skin Exam: Lesion(s) Extremeties Extremities Exam: No Edema Assessment/Plan Problem List: (1) ESRD (end stage renal disease) on dialysis ICD Codes: N18.6 - End stage renal failure on dialysis; Z99.2 - Dependence on renal dialysis Status: Chronic Plan: He is on hemodialysis MWF Chest x-ray was clear VQ scan is low probability follows with Dr. Richardson Staying for chest wound fu with Plastic surgery HD proceedings noted 3 L UF, 2K [place], venous pressure high (2) Hypertension, accelerated ICD Codes: I10 - Hypertension, accelerated Status: Chronic Plan: Blood pressure is labile followed blood pressure after dialysis (3) Diabetes ICD Codes: E11.9 - Diabetes mellitus Status: Chronic Plan: Continue to monitor Problem Qualifiers (1) Diabetes: Andi Roth MD Feb 16, 2017 09:47
[2017-02-16] MEDS: GELATIN 12 MM/7 MM FOAM TOP PRN (10:47)
[2017-02-16] MEDS: EPOETIN ALFA 10,000 UNITS/ML VIAL IV PRN (10:48)
--- NOTE | 2017-02-16 12:53 | PD.CARD.PN ---
Subjective Subjective Remarks No CP, mild SOB, in dialysis Objective Medications Active Medications Heparin Sodium (Porcine) (Heparin Central Flush) 200 units DAILY IV FLUSH; Start 02/16/17 at 09:00 Vital Signs / I&O Vital Signs Date Time Temp Pulse Resp B/P (MAP) Pulse Ox O2 Delivery O2 Flow Rate FiO2 02/16/17 12:42 97.4 86 18 123/58 (79) 92 02/16/17 09:54 21 02/16/17 07:46 98.2 82 18 115/55 (75) 94 02/16/17 04:20 79 02/16/17 03:43 98.7 79 18 104/57 (73) 90 02/16/17 00:00 88 02/15/17 23:23 18 02/15/17 23:02 99.2 88 18 127/68 (87) 93 02/15/17 20:40 97 21 02/15/17 20:15 98.5 84 18 156/73 (100) 92 02/15/17 20:14 84 02/15/17 17:44 98.8 82 16 133/64 (87) 98 02/15/17 12:53 98.8 85 16 129/60 (83) 93 I/O 02/15/17 02/15/17 02/15/17 02/16/17 02/16/17 02/16/17 07:00 15:00 23:00 07:00 15:00 23:00 Intake Total 200 ml 240 ml Output Total 3000 ml Balance 200 ml 240 ml -3000 ml Intake Oral 200 ml 240 ml Output Hemodialysis 3000 ml Physical Exam GENERAL: In NAD SKIN: Warm and dry. HEAD: Normocephalic. EYES: No scleral icterus. No injection or drainage. NECK: Supple, trachea midline. No JVD or lymphadenopathy. CARDIOVASCULAR: Regular rate and rhythm without murmurs, gallops, or rubs. RESPIRATORY: Breath sounds equal bilaterally. No accessory muscle use. Few rhonchi. GASTROINTESTINAL: Abdomen soft, non-tender, nondistended. MUSCULOSKELETAL: No cyanosis, trace edema. Laboratory Date/Time Source Procedure Growth Status 02/13/17 21:03 Blood Peripheral Aerobic Blood Culture - Preliminary NO GROWTH IN 2 DAYS Resulted 02/13/17 21:03 Blood Peripheral Anaerobic Blood Culture - Preliminary NO GROWTH IN 2 DAYS Resulted 02/13/17 21:22 Wound Chest Gram Stain - Final Complete 02/13/17 21:22 Wound Chest Wound Culture - Final Complete Assessment and Plan Problem List: (1) Atypical chest pain ICD Codes: R07.89 - Other chest pain (2) Hypertension ICD Codes: I10 - Hypertension Status: Chronic (3) DM (diabetes mellitus) ICD Codes: E11.9 - Type 2 diabetes mellitus without complications Status: Chronic (4) ESRD (end stage renal disease) on dialysis ICD Codes: N18.6 - End stage renal failure on dialysis; Z99.2 - Dependence on renal dialysis Status: Chronic (5) DEANNA (obstructive sleep apnea) ICD Codes: G47.33 - Obstructive sleep apnea (adult) (pediatric) Status: Acute Assessment and Plan No new cardiac issues. Atypical, noncardiac CP, likely of musculoskeletal origin , now improved. No evidence of ACS. Continue current program. No new cardiac issues. Tolerating dialysis well. Will schedule cardiology outpatient f/u. James Engel MD Feb 16, 2017 12:53
[2017-02-16] MEDS ORDERED: BUPIVACAINE/EPINEPHRINE 0.5% 50 ML VIAL ONE (13:09)
[2017-02-16] MEDS ORDERED: ceFAZolin INJ 1,000 MG VIAL ONE (13:11)
[2017-02-16] MEDS ORDERED: EPINEPHrine HCL (1:1000) 1 MG/ML VIAL ONE ×2 (13:23→14:22)
[2017-02-16] MEDS ORDERED: MIDAZOLAM HCL 2 MG/2 ML VIAL ONE ×2 (13:29→13:30)
[2017-02-16] MEDS ORDERED: DO NOT ADM ANY ANTICOAGULANT DRUGS PRN (14:50)
[2017-02-16] MEDS ORDERED: *ONDANSETRON 4 MG VIAL PERIprocedural Use ONLY ONE (15:29)
[2017-02-16] MEDS: MORPHINE SULFATE 4 MG/ML INJ IV PUSH PRN ×2 (17:12→21:06)
[2017-02-16] MEDS ORDERED: MICROFIBRILLAR COLLAGEN HEMOSTAT 1 GM PKT ONE (20:36)
[2017-02-16] MEDS ORDERED: MICROFIBRILLAR COLLAGEN HEMOSTAT 70 X 35 MM BANDAGE ONE (20:36)
[2017-02-16] MEDS: DOXEPIN HCL 50 MG CAP PO SCH (21:55)
[2017-02-16] MEDS: MIRTAZAPINE 15 MG TAB PO SCH (21:55)
[2017-02-16] MEDS: LOSARTAN 50 MG TAB PO SCH (21:55)
[2017-02-16] MEDS ORDERED: LIDOCAINE HCL 2% 50 ML VIAL PRN (23:00)
[2017-02-17] VITALS (14 sets, daily range): BP systolic 87–130; BP diastolic 46–67; PULSE 77–89; RESP 13–20; TEMP 96.8–100.3; O2SAT 91–99
[2017-02-17] MEDS: CLINDAMYCIN 150 MG CAP PO SCH ×4 (00:57→17:21)
[2017-02-17] MEDS: MORPHINE SULFATE 4 MG/ML INJ IV PUSH PRN ×3 (01:54→09:31)
[2017-02-17 03:36] LABS: AUTOMATED NEUTROPHIL # 7.7 TH/MM3 (1.8-7.7); BASOPHIL # 0.1 TH/MM3 (0-0.2); BASOPHIL % 0.7 % (0.0-2.0); EOSINOPHIL # 0.4 TH/MM3 (0-0.4); HEMO FLAGS DIFF FINAL; LYMPH % 10.6 % (9.0-44.0); LYMPHOCYTE # 1.1 TH/MM3 (1.0-4.8); MEAN CELL VOLUME 88.1 FL (80.0-100.0); MEAN CORPUSCULAR HEMOGLOBIN 28.2 PG (27.0-34.0); MONO % 9.8 % (0.0-8.0); NEUT % 74.9 % (16.0-70.0); PLATELET COUNT 388 TH/MM3 (150-450); RED BLOOD COUNT 2.95 MIL/MM3 (4.50-5.90); WHITE BLOOD COUNT 10.3 TH/MM3 (4.0-11.0)
[2017-02-17 03:48] LABS: APTT (PATIENT) 36.9 SEC (24.3-30.1); INTERNATIONAL NORMALIZED RATIO 1.1 RATIO; PROTHROMBIN TIME - PATIENT 12.1 SEC (9.8-11.6)
[2017-02-17 04:26] LABS: BICARBONATE 31.1 MEQ/L (21.0-32.0); POTASSIUM 5.8 MEQ/L (3.5-5.1)
[2017-02-17] MEDS: NIFEdipine 20 MG CAP PO SCH ×3 (06:00→21:08)
[2017-02-17] MEDS: ONDANSETRON HCL 4 MG/2 ML VIAL IV PUSH PRN (06:26)
--- NOTE | 2017-02-17 07:11 | MP ---
cc: IRVIN SIMPSON M.D. DATE OF SURGERY 02/16/2017 PREOPERATIVE DIAGNOSES 1. Right chest multiple hidradenitis areas. 2. Left axilla hidradenitis. 3. Right buttock hidradenitis. POSTOPERATIVE DIAGNOSIS 1. Right chest multiple hidradenitis areas. 2. Left axilla hidradenitis. 3. Right buttock hidradenitis. OPERATION 1. Excision above areas right #1 four areas on the chest mainly on the right side. 2. One area on the left axilla anterior axillary fold 4 x 3 cm excision. 3. One area on the right buttock gluteal cleft in the upper part 8 x [address] Simpson ANESTHESIA General INDICATIONS This is a 46-year-old black male with numerous areas of hidradenitis all over his body. He has undergone several operations in the past going back almost 22 years. Most of the operation being done by myself and in the past couple of years by Dr. Ca. The patient currently has been admitted for medical reasons in the hospital. He has a central line port on the right upper chest and there are areas of active hidradenitis below it. The medical team has requested to clean up these areas. The patient also wanted to address two additional areas while he was having anesthesia. The patient understands the overall surgical procedure, the possibility of bleeding, infection, and open wounds very well. He has done this multiple times. PROCEDURE The patient was brought to the operating room, was given supine position, anesthesia was started. Prep and drape was done. IV antibiotic had been given. A time-out was called and completed. The areas on the chest were marked and also on the left anterior axillary fold. There are very large areas on the right side of the midline and one additional area on the left side of the midline as well. All of these were tumesced with a mixture of Marcaine with epi and saline and they were excised directly with a cutting and coagulating Bovie current. Hemostasis was excellent. The one on the left axilla was a 4 x 2 cm excision as well. All these areas were left open. They were packed Betadine soaked 4x4s and dressed. The prep and drape was then removed and the patient was turned on his right side down positioned with adequate padding. A second prep and drape was done in the area on his right buttock approximately 8 cm vertical and 4 cm wide. Multiple areas of hidradenitis were actively purulent. A culture sample was taken. Again the area was tumesced and excised with Bovie current. A couple of larger vessels were suture ligated. The rest of the hemostasis was with Bovie. The area was again packed with Betadine and 4x4. Sterile dressing was applied. The patient remained stable. Intraoperative blood loss less than 20 cc. No complications. signed, not fully reviewed MD NELLY Guerin/ALIZA /4:11 PM /7:01 AM MTDD
[2017-02-17] MEDS: INSULIN ASPART SUPPLEMENTAL SCALE SQ SCH ×4 (08:00→21:00)
[2017-02-17] MEDS: ASPIRIN EC 81 MG TABEC PO SCH (08:06)
[2017-02-17] MEDS: CARVEDILOL 12.5 MG TAB PO SCH ×2 (09:00→21:00)
[2017-02-17] MEDS: SODIUM CHLORIDE 0.9% FLUSH 10 ML FLUSH IV FLUSH SCH ×2 (09:00→21:00)
[2017-02-17] MEDS: ISOSORBIDE MONONITRATE 20 MG TAB PO SCH ×2 (09:00→21:00)
[2017-02-17] MEDS: hydrALAZINE HCL 100 MG TAB PO SCH ×3 (09:00→18:00)
[2017-02-17] MEDS: HEPARIN SODIUM - SQ 10,000 UNITS/ML VIAL SQ SCH ×2 (09:00→21:00)
[2017-02-17] MEDS: CINACALCET HYDROCHLORIDE 30 MG TAB PO SCH (09:00)
--- NOTE | 2017-02-17 09:01 | PD.CARD.PN ---
Subjective Subjective Remarks Feels better, minimal atyp CP, mild SOB, wants to go home Objective Medications Active Medications Bupivacaine HCl/ Epinephrine Bitart (Sensorcaine-Epi 0.5% 50 ml Inj) 50 ml STK- MED ONCE .ROUTE Last administered on 02/16/17 13:09; Admin Dose 50 ML; Start at 13:09; Stop 02/16/17 at 13:10; Status DC Cefazolin Sodium (Ancef Inj) 1,000 mg STK-MED ONCE .ROUTE Last administered on 13:52; Admin Dose 1,000 MG; Start 02/16/17 at 13:11; Stop 02/16/17 at 13:12; Status DC Epinephrine HCl (Adrenalin (1:1000) Inj) 1 mg STK-MED ONCE .ROUTE Last administered on 02/16/17 13:23; Admin Dose 1 MG; Start 02/16/17 at 13:23; Stop 02/16/17 at 13:24; Status DC Epinephrine HCl (Adrenalin (1:1000) Inj) 1 mg STK-MED ONCE .ROUTE; Start at 14:22; Stop 02/16/17 at 14:23; Status DC Fentanyl Citrate (fentaNYL INJ) 300 mcg STK-MED ONCE .ROUTE; Start 02/16/17 at 13:29; Stop 02/16/17 at 13:30; Status DC Heparin Sodium (Porcine) (Heparin Central Flush) 200 units DAILY IV FLUSH; Start 02/16/17 at 09:00 Lidocaine HCl (Xylocaine 2% Inj) MD USE [ FOR SUTURE AT BEDSIDE] UNSCH X1 PRN .XX; Start 02/16/17 at 23:00; Stop 02/18/17 at 22:59 Microfibriller Collagen Hemostat (Avitene Bandage) 1 bandage STK-MED ONCE .ROUTE ; Start 02/16/17 at 20:36; Stop 02/16/17 at 20:37; Status DC Microfibriller Collagen Hemostat (Avitene Powder Pack) 1 gm STK-MED ONCE .ROUTE ; Start 02/16/17 at 20:36; Stop 02/16/17 at 20:37; Status DC Midazolam HCl (Versed Inj) 2 mg STK-MED ONCE .ROUTE; Start 02/16/17 at 13:29; Stop 02/16/17 at 13:30; Status DC Midazolam HCl (Versed Inj) 2 mg STK-MED ONCE .ROUTE; Start 02/16/17 at 13:30; Stop 02/16/17 at 13:31; Status DC Miscellaneous Information ALL NURSING DEPARTME... UNSCH PRN .XX; Start at 14:50; Stop 02/17/17 at 14:49 Ondansetron HCl (*ZOFRAN INJ PERIprocedural ONLY) 4 mg STK-MED ONCE .ROUTE Last administered on 02/16/17t 15:29; Admin Dose 4 MG; Start 02/16/17 at 15:29; Stop 02/16/17 at 15:30; Status DC Vital Signs / I&O Vital Signs Date Time Temp Pulse Resp B/P (MAP) Pulse Ox O2 Delivery O2 Flow Rate FiO2 02/17/17 08:17 96 Nasal Cannula 2.00 02/17/17 08:00 97.4 85 19 97/55 (69) 96 02/17/17 05:00 96.9 77 18 105/55 (72) 95 02/17/17 01:56 96.9 89 18 130/61 (84) 98 02/17/17 00:43 98.5 84 18 117/67 (84) 94 02/17/17 00:35 18 02/16/17 23:00 18 02/16/17 19:59 99.0 79 19 133/65 (87) 100 02/16/17 16:40 98.2 81 20 148/67 (94) 100 02/16/17 15:45 98.5 82 16 130/62 (84) 96 Nasal Cannula 2 02/16/17 15:30 80 16 131/60 (83) 96 Nasal Cannula 2 02/16/17 15:15 78 15 128/67 (87) 95 Nasal Cannula 2 02/16/17 15:00 79 15 127/69 (88) 99 Nasal Cannula 3 02/16/17 14:45 98.6 80 16 136/71 (92) 98 Nasal Cannula 3 02/16/17 13:23 70 105/70 02/16/17 12:42 97.4 86 18 123/58 (79) 92 02/16/17 09:54 21 I/O 9/02/16/17 02/16/17 02/17/17 02/17/17 02/17/17 07:00 15:00 23:00 07:00 15:00 23:00 Intake Total 300 ml 180 ml Output Total 3010 ml Balance -2710 ml 180 ml Intake Oral 180 ml Other 300 ml Output Hemodialysis 3000 ml Estimated Blood Loss 10 ml # Voids 0 0 # Bowel Movements 0 Physical Exam GENERAL: In NAD SKIN: Warm and dry. HEAD: Normocephalic. EYES: No scleral icterus. No injection or drainage. NECK: Supple, trachea midline. No JVD or lymphadenopathy. CARDIOVASCULAR: Regular rate and rhythm without murmurs, gallops, or rubs. RESPIRATORY: Breath sounds equal bilaterally. No accessory muscle use. Few rhonchi. GASTROINTESTINAL: Abdomen soft, non-tender, nondistended. MUSCULOSKELETAL: No cyanosis, trace edema. Laboratory Laboratory Tests Test 02/17/17 03:11 White Blood Count 10.3 TH/MM3 Red Blood Count 2.95 MIL/MM3 Hemoglobin 8.3 GM/DL Hematocrit 26.0 % Mean Corpuscular Volume 88.1 FL Mean Corpuscular Hemoglobin 28.2 PG Mean Corpuscular Hemoglobin Concent 32.0 % Red Cell Distribution Width 22.0 % Platelet Count 388 TH/MM3 Mean Platelet Volume 6.9 FL Neutrophils (%) (Auto) 74.9 % Lymphocytes (%) (Auto) 10.6 % Monocytes (%) (Auto) 9.8 % Eosinophils (%) (Auto) 4.0 % Basophils (%) (Auto) 0.7 % Neutrophils # (Auto) 7.7 TH/MM3 Lymphocytes # (Auto) 1.1 TH/MM3 Monocytes # (Auto) 1.0 TH/MM3 Eosinophils # (Auto) 0.4 TH/MM3 Basophils # (Auto) 0.1 TH/MM3 CBC Comment DIFF FINAL Differential Comment Prothrombin Time 12.1 SEC Prothromb Time International Ratio 1.1 RATIO Activated Partial Thromboplast Time 36.9 SEC Blood Urea Nitrogen 45 MG/DL Creatinine 9.65 MG/DL Random Glucose 144 MG/DL Calcium Level 8.4 MG/DL Sodium Level 135 MEQ/L Potassium Level 5.8 MEQ/L Chloride Level 97 MEQ/L Carbon Dioxide Level 31.1 MEQ/L Anion Gap 7 MEQ/L Estimat Glomerular Filtration Rate 7 ML/MIN Assessment and Plan Problem List: (1) Atypical chest pain ICD Codes: R07.89 - Other chest pain (2) Hypertension ICD Codes: I10 - Hypertension Status: Chronic (3) DM (diabetes mellitus) ICD Codes: E11.9 - Type 2 diabetes mellitus without complications Status: Chronic (4) ESRD (end stage renal disease) on dialysis ICD Codes: N18.6 - End stage renal failure on dialysis; Z99.2 - Dependence on renal dialysis Status: Chronic (5) DEANNA (obstructive sleep apnea) ICD Codes: G47.33 - Obstructive sleep apnea (adult) (pediatric) Status: Acute Assessment and Plan Remains stable, no new cardiac issues. Atypical, noncardiac CP, likely of musculoskeletal origin, now improved. No evidence of ACS. Continue current program. Tolerating dialysis well. Will schedule cardiology outpatient f/u. OK to discharge home from cardiac standpoint. James Engel MD Feb 17, 2017 09:01
[2017-02-17] MEDS: PRAVASTATIN SOD 40 MG TAB PO SCH (09:11)
[2017-02-17] MEDS: PANTOPRAZOLE SOD 40 MG DELAYED RELEASE TAB PO SCH (09:11)
[2017-02-17] MEDS: SEVELAMER CARBONATE 800 MG TAB PO SCH ×3 (09:14→17:00)
[2017-02-17] MEDS: DOCUSATE SODIUM 50 MG/SENNA 8.6 MG TAB PO SCH ×2 (09:14→21:00)
[2017-02-17] MEDS: ACETAMINOPHEN/HYDROcodone 325 MG/5 MG TAB PO PRN (11:36)
[2017-02-17] MEDS ORDERED: LIDOCAINE 1%/EPINEPHrine 1:100,000 SOLN 30 ML VIAL ONE (11:43)
[2017-02-17] MEDS ORDERED: SODIUM BICARBONATE 8.4% INJ 50 MEQ/50 ML SYR IV PUSH ONE (11:45)
--- NOTE | 2017-02-17 12:47 | PD.OP ---
Dx: Dx Acute post op bleeding from Left chest and left axilla Peocedure: Ligation bleeding vessels Left chest and left axilla operative sites Anesth Local Lidocaine 1% with Epi Description Sutures 2/0 Vicryl - 4 areas ligated and left axilla wound closed as well Approx blood loss noted 75 to 100 cc of clots,less than 5 cc fresh blood. All areas watched for 10 min - all dry now,. Dressed. Operative Report Procedure: as listed Surgeon: Elijah Simpson Rat Exterminator(s): Elijah Wright MD Feb 17, 2017 12:47
--- NOTE | 2017-02-17 13:30 | HHI.NPPN ---
Subjective History of Present Illness 46 year old Black male with ESRD DM, HTN, CP Additional Remarks chest wound Review of Systems General Constitutional: Fatigue Musculoskeletal MS: Pain/Stiffness Objective Data Data Vital Signs Date Time Temp Pulse Resp B/P (MAP) Pulse Ox O2 Delivery O2 Flow Rate FiO2 02/17/17 13:08 96.8 88 20 97/55 (69) 96 02/17/17 12:00 100.3 87 19 96/54 (68) 93 02/17/17 08:17 96 Nasal Cannula 2.00 02/17/17 08:00 97.4 85 19 97/55 (69) 96 02/17/17 05:00 96.9 77 18 105/55 (72) 95 02/17/17 01:56 96.9 89 18 130/61 (84) 98 02/17/17 00:43 98.5 84 18 117/67 (84) 94 02/17/17 00:35 18 02/16/17 23:00 18 02/16/17 19:59 99.0 79 19 133/65 (87) 100 02/16/17 16:40 98.2 81 20 148/67 (94) 100 02/16/17 15:45 98.5 82 16 130/62 (84) 96 Nasal Cannula 2 02/16/17 15:30 80 16 131/60 (83) 96 Nasal Cannula 2 02/16/17 15:15 78 15 128/67 (87) 95 Nasal Cannula 2 02/16/17 15:00 79 15 127/69 (88) 99 Nasal Cannula 3 02/16/17 14:45 98.6 80 16 136/71 (92) 98 Nasal Cannula 3 -: 02/17/17 0311 02/17/17 0311 Microbiology 02/17/17 Aerobic Blood Culture, Received Pending 02/17/17 Anaerobic Blood Culture, Received Pending 02/17/17 Aerobic Blood Culture, Received Pending 02/17/17 Anaerobic Blood Culture, Received Pending 02/16/17 Fungal Smear - Final, Resulted NO FUNGAL ELEMENTS SEEN. 02/16/17 Fungal Culture, Resulted Pending 02/16/17 Acid Fast Stain, Received Pending 02/16/17 Mycobacterial Culture, Received Pending 02/16/17 Gram Stain - Final, Resulted 02/16/17 Wound Culture, Resulted Pending Physical Exam General Appearance: Well Developed Neck Neck Exam: Neck Supple Pulmonary Resp Exam: Clear Bilaterally, Breath Sounds Equal Cardiology CV Exam: Regular, Normal Sinus Rhythm Gastrointestinal/Abdomen GI Exam: Soft, Non-Tender, Bowel Sounds Present Integumentary Skin Exam: Lesion(s) Extremeties Extremities Exam: No Edema Assessment/Plan Problem List: (1) ESRD (end stage renal disease) on dialysis ICD Codes: N18.6 - End stage renal failure on dialysis; Z99.2 - Dependence on renal dialysis Status: Chronic Plan: He is on hemodialysis MWF Chest x-ray was clear VQ scan is low probability follows with Dr. Richardson Staying for chest wound s/p debridement with Plastic surgery K 5.8 give Kayexalate 30 gm (2) Hypertension, accelerated ICD Codes: I10 - Hypertension, accelerated Status: Chronic Plan: Blood pressure is labile followed blood pressure after dialysis (3) Diabetes ICD Codes: E11.9 - Diabetes mellitus Status: Chronic Plan: Continue to monitor Problem Qualifiers (1) Diabetes: Andi Roth MD Feb 17, 2017 13:30
[2017-02-17] MEDS ORDERED: SODIUM POLYSTYRENE SULFONATE SUSP 15 GM/60 ML CUP PO ONE (14:00)
[2017-02-17] MEDS: LOSARTAN 50 MG TAB PO SCH (21:00)
[2017-02-17] MEDS: DOXEPIN HCL 50 MG CAP PO SCH (21:00)
[2017-02-17] MEDS: MIRTAZAPINE 15 MG TAB PO SCH (21:00)
--- NOTE | 2017-02-17 21:32 | PD.PLAS.PN ---
Subjective Remarks Patient seen approx 1110 am noted to have new acute bleeding from the LEFT chest wound and the LEFT axilla now. Dressing saturated and has trickle of fresh blood on the chest. Left axilla is not running but still needs to be checked. Will get all needed instruments, sutures and anesthetics etc, will be able to suture ligate any active bleeders at the bedside. Also to get two units of PRBC transfused as the patient is chronically anemic from the renal failure and dialysis/ See procedures / operative note for this encounter. Vital Signs Date Time Temp Pulse Resp B/P (MAP) Pulse Ox O2 Delivery O2 Flow Rate FiO2 02/17/17 20:52 98.3 82 14 92/57 99 02/17/17 20:00 97.2 87 13 96/46 (63) 98 02/17/17 18:18 99.0 86 16 96/59 96 02/17/17 16:00 99.2 88 18 93/51 (65) 91 02/17/17 14:15 99.0 88 16 90/54 98 02/17/17 13:58 99.5 85 17 87/48 02/17/17 13:36 99.5 85 17 87/48 (61) 98 02/17/17 13:08 96.8 88 20 97/55 (69) 96 02/17/17 12:00 100.3 87 19 96/54 (68) 93 02/17/17 08:17 96 Nasal Cannula 2.00 02/17/17 08:00 97.4 85 19 97/55 (69) 96 02/17/17 05:00 96.9 77 18 105/55 (72) 95 02/17/17 01:56 96.9 89 18 130/61 (84) 98 02/17/17 00:43 98.5 84 18 117/67 (84) 94 02/17/17 00:35 18 02/16/17 23:00 18 I/O 02/16/17 02/16/17 02/16/17 02/17/17 02/17/17 02/17/17 07:00 15:00 23:00 07:00 15:00 23:00 Intake Total 300 ml 180 ml 720 ml Output Total 3010 ml 0 ml Balance -2710 ml 180 ml 720 ml Intake Oral 180 ml 720 ml Other 300 ml Output Urine Total 0 ml Hemodialysis 3000 ml Estimated Blood Loss 10 ml # Voids 0 0 0 # Bowel Movements 0 0 Laboratory Tests Test 02/17/17 03:11 White Blood Count 10.3 Red Blood Count 2.95 Hemoglobin 8.3 Hematocrit 26.0 Mean Corpuscular Volume 88.1 Mean Corpuscular Hemoglobin 28.2 Mean Corpuscular Hemoglobin Concent 32.0 Red Cell Distribution Width 22.0 Platelet Count 388 Mean Platelet Volume 6.9 Neutrophils (%) (Auto) 74.9 Lymphocytes (%) (Auto) 10.6 Monocytes (%) (Auto) 9.8 Eosinophils (%) (Auto) 4.0 Basophils (%) (Auto) 0.7 Neutrophils # (Auto) 7.7 Lymphocytes # (Auto) 1.1 Monocytes # (Auto) 1.0 Eosinophils # (Auto) 0.4 Basophils # (Auto) 0.1 CBC Comment DIFF FINAL Differential Comment Prothrombin Time 12.1 Prothromb Time International Ratio 1.1 Activated Partial Thromboplast Time 36.9 Blood Urea Nitrogen 45 Creatinine 9.65 Random Glucose 144 Calcium Level 8.4 Sodium Level 135 Potassium Level 5.8 Chloride Level 97 Carbon Dioxide Level 31.1 Anion Gap 7 Estimat Glomerular Filtration Rate 7 Date/Time Source Procedure Growth Status 02/17/17 03:16 Blood Peripheral Aerobic Blood Culture Pending Received 02/17/17 03:16 Blood Peripheral Anaerobic Blood Culture Pending Received 02/16/17 14:30 Wound Buttock Fungal Smear - Final NO FUNGAL ELEMENTS SEEN. Resulted 02/16/17 14:30 Wound Buttock Fungal Culture Pending Resulted Result Diagram: 02/17/1731002/17/17310 Elijah Simpson MD Feb 17, 2017 21:32
--- NOTE | 2017-02-17 22:18 | HHI.PR ---
Subjective Remarks Patient seen today around 1 PM. Somnolent, wakes up for exam. Reports pain Assessment nurse. Patient bleeding. Discussed with nursing, who has notified surgery. Objective Vital Signs Date Time Temp Pulse Resp B/P (MAP) Pulse Ox O2 Delivery O2 Flow Rate FiO2 02/17/17 20:52 98.3 82 14 92/57 99 02/17/17 20:00 97.2 87 13 96/46 (63) 98 02/17/17 18:18 99.0 86 16 96/59 96 02/17/17 16:00 99.2 88 18 93/51 (65) 91 02/17/17 14:15 99.0 88 16 90/54 98 02/17/17 13:58 99.5 85 17 87/48 02/17/17 13:36 99.5 85 17 87/48 (61) 98 02/17/17 13:08 96.8 88 20 97/55 (69) 96 02/17/17 12:00 100.3 87 19 96/54 (68) 93 02/17/17 08:17 96 Nasal Cannula 2.00 02/17/17 08:00 97.4 85 19 97/55 (69) 96 02/17/17 05:00 96.9 77 18 105/55 (72) 95 02/17/17 01:56 96.9 89 18 130/61 (84) 98 02/17/17 00:43 98.5 84 18 117/67 (84) 94 02/17/17 00:35 18 02/16/17 23:00 18 I/O 02/16/17 02/16/17 02/16/17 02/17/17 02/17/17 02/17/17 06:59 14:59 22:59 06:59 14:59 22:59 Intake Total 300 ml 180 ml 720 ml Output Total 3010 ml 0 ml Balance -2710 ml 180 ml 720 ml Intake Oral 180 ml 720 ml Other 300 ml Output Urine Total 0 ml Hemodialysis 3000 ml Estimated Blood Loss 10 ml # Voids 0 0 0 # Bowel Movements 0 0 Result Diagram: 02/17/1731002/17/17310 Objective Remarks GENERAL: patient sleeping, wakes up for exam. Reporting pain. Obeys commands. SKIN: Warm and dry. HEAD: Normocephalic. EYES: No scleral icterus. No injection or drainage. NECK: Supple, trachea midline. No JVD. CARDIOVASCULAR: Regular rate and rhythm without murmurs, gallops, or rubs. RESPIRATORY: Breath sounds equal bilaterally. No accessory muscle use. GASTROINTESTINAL: Abdomen soft, non-tender, nondistended. MUSCULOSKELETAL: No cyanosis, or edema. patient with slow bleeding from left axillary surgical site. BACK: Nontender without obvious deformity. No CVA tenderness. A/P Assessment and Plan 46-year-old male with a PMH of HTN, Hyperlipidemia, DM, Hidradenitis Suppurativa , ESRD on HD M/W/F, Anxiety, Depression and Gastritis and presented with complaints of chest pain //Atypical Chest Pain and Dyspnea: Suspect secondary to infected chest wall wound as below. Rule out possible ACS, PE, dialysis catheter malfunction. Reviewed: Trop 0.09, 0.09, 0.06; previously 0.17 on 08/09/16; flat, nonischemic. EKG w/ no ischemic changes. VQ scan with low probability for PE. -Discussed with patient's photographic editor, Dr. Engel, doubt cardiac etiology, cleared from cardiology standpoint -Continue ASA, Statin, B-herman, NTG/Morphine prn. -O2 and nebs as needed -Incentive spirometry = Treatment for hidradenitis as below. //Chest Wall Infection, Failed Outpatient: secondary to Hidradenitis, on antibiotics x1 wk for chest wall infection. Reviewed: Afebrile with no leukocytosis. Chest CT showed induration in the upper abdominal wall on the right with nonspecific mediastinal and axillary adenopathy. -Wound culture collected, results pending -Continue oral clindamycin pending wound culture -Consulted plastic surgery, planning on chest and buttocks wound excision in OR = 02/17. Postop day 0 surgical excision. Discussed with nursing as above. Surgery notified about bleeding. Appreciate plastic surgery assistance. //Hypokalemia. Potassium 5.8. Kayexalate ordered by nephrology. Appreciate assistance. //Acute blood loss anemia. Secondary to surgery. 2 units of. She is ordered by surgery. Monitor for bleeding Follow-up tomorrow. //ESRD on HD: M/W/F. Last HD on Tuesday w/ no complications, -consulted Nephrology to resume HD. -Continue cinacalcet and sevelamer //Hypertension: BP is labile. Currently elevated, likely compounded by pain and due for dialysis. -Continue losartan, nifedipine, carvedilol, hydralazine, Imdur -Clonidine as needed DM: Sliding scale w/ Accu-Cheks. DVT Prophylaxis: Heparin sq Jaden Bates MD Feb 17, 2017 22:18
--- NOTE | 2017-02-17 23:37 | MP ---
cc: IRVIN SIMPSON DATE OF SURGERY 02/16/17 PREOPERATIVE DIAGNOSIS Acute postoperative bleeding from right side chest wounds. POSTOPERATIVE DIAGNOSIS Acute postoperative bleeding from right side chest wounds. OPERATION Control of hemorrhage and irrigation of hematoma from the right chest wall wounds. SURGEON Dr. Ana Simpson ANESTHESIA Local. INDICATIONS A 46-year-old black male who was operated on by myself earlier today in the afternoon for numerous adenitis areas involving the right chest, the left chest, left axilla and buttocks. The patient postoperatively in the past few hours has been saturating the chest wall dressing and blood coming out of the dressing. The hemostasis in the procedure was carried out at bedside under local anesthesia. PROCEDURE IN DETAIL The patient was kept supine on the hospital bed. The area around the dressing was cleaned and area around the dressing was cleaned and sterile towels were placed. The dressing was removed from one wound at a time. The two wounds were noted to be bleeding, one on the right chest in the inframammary fold area and 1+ to the right parasternum. The areas were injected with lidocaine 1% for anesthesia and, once the anesthetic had taken effect, hemostats were used to pop the active bleeders. The clots were removed and the blood vessels were suture ligated with 3-0 Vicryl [id number] sutures. It was noted that most of the bleeding was in the subdermal plane and the skin borders were also oversewn with a locking running sutures in short runs. Once all the active bleeding had been controlled, both wounds were observed for 7-10 minutes. The third wound on the left side chest did not have any active bleeding, however, it was part of the same dressing and all three wounds were sprinkled with the Juan hemostatic powder. A further few minutes were allowed to elapse and, once the hemostasis was satisfactory, The wounds were covered with Xeroform and dry 4x4 and small amount of tape. The two operative sites, the left axilla and the buttocks dressings are not showing any active saturation. The patient has been otherwise stable. The estimated blood loss in the lower dressing materials removed was approximately 100 mL. The patient is a chronic renal failure patient with low hemoglobin anemia on a chronic basis. We will go ahead and order a type and cross match in case of any need in the short-term future. signed, not fully reviewed MD KEVIN Guerin /5:20 PM /11:14 PM [facility]
[2017-02-18] VITALS (8 sets, daily range): BP systolic 88–128; BP diastolic 49–69; PULSE 81–111; RESP 16–20; TEMP 96.9–98.4; O2SAT 94–100
[2017-02-18] MEDS: CLINDAMYCIN 150 MG CAP PO SCH ×4 (01:07→17:42)
[2017-02-18] MEDS: MORPHINE SULFATE 4 MG/ML INJ IV PUSH PRN ×2 (01:09→17:42)
[2017-02-18] MEDS: NIFEdipine 20 MG CAP PO SCH ×3 (05:37→20:02)
[2017-02-18 07:20] LABS: AUTOMATED NEUTROPHIL # 10.7 TH/MM3 (1.8-7.7); BASOPHIL % 0.3 % (0.0-2.0); EOSINOPHIL # 0.3 TH/MM3 (0-0.4); EOSINOPHIL % 2.2 % (0.0-4.0); HEMATOCRIT 27.5 % (39.0-51.0); HEMO FLAGS DIFF FINAL; LYMPH % 8.9 % (9.0-44.0); LYMPHOCYTE # 1.2 TH/MM3 (1.0-4.8); MEAN CELL VOLUME 87.4 FL (80.0-100.0); MEAN CORPUSCULAR HEMOGLOBIN 27.7 PG (27.0-34.0); MEAN CORPUSCULAR HGB CONC 31.7 % (32.0-36.0); MONO % 10.7 % (0.0-8.0); NEUT % 77.9 % (16.0-70.0); PLATELET COUNT 356 TH/MM3 (150-450); RED BLOOD COUNT 3.14 MIL/MM3 (4.50-5.90); RED CELL DISTRIBUTION WIDTH 19.9 % (11.6-17.2); WHITE BLOOD COUNT 13.7 TH/MM3 (4.0-11.0)
[2017-02-18 07:45] LABS: BICARBONATE 28.3 MEQ/L (21.0-32.0); POTASSIUM 5.8 MEQ/L (3.5-5.1)
[2017-02-18] MEDS: INSULIN ASPART SUPPLEMENTAL SCALE SQ SCH ×4 (08:00→20:04)
[2017-02-18] MEDS: SEVELAMER CARBONATE 800 MG TAB PO SCH ×3 (08:00→17:00)
[2017-02-18] MEDS: HEPARIN SODIUM - SQ 10,000 UNITS/ML VIAL SQ SCH ×2 (09:00→20:03)
[2017-02-18] MEDS: hydrALAZINE HCL 100 MG TAB PO SCH ×3 (09:00→17:42)
[2017-02-18] MEDS: ISOSORBIDE MONONITRATE 20 MG TAB PO SCH ×2 (09:00→20:02)
[2017-02-18] MEDS: ASPIRIN EC 81 MG TABEC PO SCH (09:00)
[2017-02-18] MEDS: PANTOPRAZOLE SOD 40 MG DELAYED RELEASE TAB PO SCH (09:00)
[2017-02-18] MEDS: DOCUSATE SODIUM 50 MG/SENNA 8.6 MG TAB PO SCH ×2 (09:00→20:03)
[2017-02-18] MEDS: CINACALCET HYDROCHLORIDE 30 MG TAB PO SCH (09:00)
[2017-02-18] MEDS: CARVEDILOL 12.5 MG TAB PO SCH ×2 (09:00→20:02)
[2017-02-18] MEDS: PRAVASTATIN SOD 40 MG TAB PO SCH (09:00)
[2017-02-18] MEDS: SODIUM CHLORIDE 0.9% FLUSH 10 ML FLUSH IV FLUSH SCH ×2 (09:00→20:04)
[2017-02-18] MEDS: GELATIN 12 MM/7 MM FOAM TOP PRN (10:06)
[2017-02-18] MEDS: EPOETIN ALFA 10,000 UNITS/ML VIAL IV PRN (10:06)
--- NOTE | 2017-02-18 11:16 | PD.PLAS.PN ---
Subjective Remarks Patient in dialysis No new bleeding dressings to be changed by nursing staff There are few prolene sutures on the chest wound in middle that need to be removed in 1 week or so OK to discharge from my standpoint. FU with Dr. Ca at [facility] Vital Signs Date Time Temp Pulse Resp B/P (MAP) Pulse Ox O2 Delivery O2 Flow Rate FiO2 02/18/17 08:00 97.8 81 17 104/57 (73) 95 02/18/17 04:00 98.0 83 16 113/56 (75) 100 02/18/17 00:59 98.3 88 16 100/51 94 02/18/17 00:00 98.4 83 16 88/49 (62) 98 02/17/17 20:52 98.3 82 14 92/57 99 02/17/17 20:00 97.2 87 13 96/46 (63) 98 02/17/17 18:18 99.0 86 16 96/59 96 02/17/17 16:00 99.2 88 18 93/51 (65) 91 02/17/17 14:15 99.0 88 16 90/54 98 02/17/17 13:58 99.5 85 17 87/48 02/17/17 13:36 99.5 85 17 87/48 (61) 98 02/17/17 13:08 96.8 88 20 97/55 (69) 96 02/17/17 12:00 100.3 87 19 96/54 (68) 93 I/O 02/17/17 02/17/17 02/17/17 02/18/17 02/18/17 02/18/17 07:00 15:00 23:00 07:00 15:00 23:00 Intake Total 180 ml 960 ml 400 ml 120 ml Output Total 0 ml Balance 180 ml 960 ml 400 ml 120 ml Intake Oral 180 ml 960 ml 120 ml Packed Cells 400 ml Output Urine Total 0 ml # Voids 0 0 # Bowel Movements 0 0 Laboratory Tests Test 02/18/17 05:25 White Blood Count 13.7 Red Blood Count 3.14 Hemoglobin 8.7 Hematocrit 27.5 Mean Corpuscular Volume 87.4 Mean Corpuscular Hemoglobin 27.7 Mean Corpuscular Hemoglobin Concent 31.7 Red Cell Distribution Width 19.9 Platelet Count 356 Mean Platelet Volume 7.2 Neutrophils (%) (Auto) 77.9 Lymphocytes (%) (Auto) 8.9 Monocytes (%) (Auto) 10.7 Eosinophils (%) (Auto) 2.2 Basophils (%) (Auto) 0.3 Neutrophils # (Auto) 10.7 Lymphocytes # (Auto) 1.2 Monocytes # (Auto) 1.5 Eosinophils # (Auto) 0.3 Basophils # (Auto) 0.0 CBC Comment DIFF FINAL Differential Comment Blood Urea Nitrogen 53 Creatinine 12.26 Random Glucose 66 Calcium Level 8.7 Sodium Level 136 Potassium Level 5.8 Chloride Level 97 Carbon Dioxide Level 28.3 Anion Gap 11 Estimat Glomerular Filtration Rate 5 Date/Time Source Procedure Growth Status 02/17/17 03:16 Blood Peripheral Aerobic Blood Culture - Preliminary NO GROWTH IN 1 DAY Resulted 02/17/17 03:16 Blood Peripheral Anaerobic Blood Culture - Preliminary NO GROWTH IN 1 DAY Resulted 02/16/17 14:30 Wound Buttock Fungal Smear - Final NO FUNGAL ELEMENTS SEEN. Resulted 02/16/17 14:30 Wound Buttock Fungal Culture Pending Resulted Result Diagram: 02/18/17 0525 02/18/17 0525 Elijah Simpson MD Feb 18, 2017 11:16
--- NOTE | 2017-02-18 11:39 | HHI.NPPN ---
Subjective History of Present Illness 46 year old Black male with ESRD DM, HTN, CP Additional Remarks chest wound Review of Systems General Constitutional: Fatigue Musculoskeletal MS: Pain/Stiffness Objective Data Data 02/18/17 02/19/17 19:00 07:00 Intake Total 120 ml Balance 120 ml Intake Oral 120 ml Vital Signs Date Time Temp Pulse Resp B/P (MAP) Pulse Ox O2 Delivery O2 Flow Rate FiO2 02/18/17 08:00 97.8 81 17 104/57 (73) 95 02/18/17 04:00 98.0 83 16 113/56 (75) 100 02/18/17 00:59 98.3 88 16 100/51 94 02/18/17 00:00 98.4 83 16 88/49 (62) 98 02/17/17 20:52 98.3 82 14 92/57 99 02/17/17 20:00 97.2 87 13 96/46 (63) 98 02/17/17 18:18 99.0 86 16 96/59 96 02/17/17 16:00 99.2 88 18 93/51 (65) 91 02/17/17 14:15 99.0 88 16 90/54 98 02/17/17 13:58 99.5 85 17 87/48 02/17/17 13:36 99.5 85 17 87/48 (61) 98 02/17/17 13:08 96.8 88 20 97/55 (69) 96 02/17/17 12:00 100.3 87 19 96/54 (68) 93 -: 02/18/17 0525 02/18/17 0525 Physical Exam General Appearance: Well Developed Neck Neck Exam: Neck Supple Pulmonary Resp Exam: Clear Bilaterally, Breath Sounds Equal Cardiology CV Exam: Regular, Normal Sinus Rhythm Gastrointestinal/Abdomen GI Exam: Soft, Non-Tender, Bowel Sounds Present Integumentary Skin Exam: Lesion(s) Extremeties Extremities Exam: No Edema Assessment/Plan Problem List: (1) ESRD (end stage renal disease) on dialysis ICD Codes: N18.6 - End stage renal failure on dialysis; Z99.2 - Dependence on renal dialysis Status: Chronic Plan: He is on hemodialysis MWF Chest x-ray was clear VQ scan is low probability follows with Dr. Richardson Staying for chest wound s/p debridement with Plastic surgery K 5.8 yesterday UF 3 L on 1 K (2) Hypertension, accelerated ICD Codes: I10 - Hypertension, accelerated Status: Chronic Plan: Blood pressure is labile followed blood pressure after dialysis (3) Diabetes ICD Codes: E11.9 - Diabetes mellitus Status: Chronic Plan: Continue to monitor Problem Qualifiers (1) Diabetes: Andi Roth MD Feb 18, 2017 11:39
[2017-02-18] MEDS: diphenhydrAMINE HCL 25 MG CAP PO PRN (11:53)
[2017-02-18] MEDS: ACETAMINOPHEN/HYDROcodone 325 MG/5 MG TAB PO PRN (14:32)
--- NOTE | 2017-02-18 15:12 | HHI.PR ---
Subjective Remarks Patient seen this morning around 11 AM in dialysis. Patient reports that surgical site pain is controlled. Denies any nausea or vomiting. Objective Vital Signs Date Time Temp Pulse Resp B/P (MAP) Pulse Ox O2 Delivery O2 Flow Rate FiO2 02/18/17 13:41 96.9 93 19 128/60 (82) 95 02/18/17 08:00 97.8 81 17 104/57 (73) 95 02/18/17 04:00 98.0 83 16 113/56 (75) 100 02/18/17 00:59 98.3 88 16 100/51 94 02/18/17 00:00 98.4 83 16 88/49 (62) 98 02/17/17 20:52 98.3 82 14 92/57 99 02/17/17 20:00 97.2 87 13 96/46 (63) 98 02/17/17 18:18 99.0 86 16 96/59 96 02/17/17 16:00 99.2 88 18 93/51 (65) 91 I/O 02/17/17 02/17/17 02/17/17 02/18/17 02/18/17 02/18/17 07:00 15:00 23:00 07:00 15:00 23:00 Intake Total 180 ml 960 ml 400 ml 120 ml Output Total 0 ml 1300 ml Balance 180 ml 960 ml 400 ml -1180 ml Intake Oral 180 ml 960 ml 120 ml Packed Cells 400 ml Output Urine Total 0 ml Hemodialysis 1300 ml # Voids 0 0 # Bowel Movements 0 0 Result Diagram: 02/18/17 0525 02/18/17524 Objective Remarks GENERAL: patient awake, alert. Appears much more comfortable than yesterday. Appropriate conversation. SKIN: Warm and dry. HEAD: Normocephalic. EYES: No scleral icterus. No injection or drainage. NECK: Supple, trachea midline. No JVD. CARDIOVASCULAR: Regular rate and rhythm without murmurs, gallops, or rubs. RESPIRATORY: Breath sounds equal bilaterally. No accessory muscle use. GASTROINTESTINAL: Abdomen soft, non-tender, nondistended. MUSCULOSKELETAL: No cyanosis, or edema. patient with slow bleeding from left axillary surgical site. BACK: Nontender without obvious deformity. No CVA tenderness. A/P Assessment and Plan 46-year-old male with a PMH of HTN, Hyperlipidemia, DM, Hidradenitis Suppurativa , ESRD on HD M/W/F, Anxiety, Depression and Gastritis and presented with complaints of chest pain //Atypical Chest Pain and Dyspnea: Suspect secondary to infected chest wall wound as below. Rule out possible ACS, PE, dialysis catheter malfunction. Reviewed: Trop 0.09, 0.09, 0.06; previously 0.17 on 08/09/16; flat, nonischemic. EKG w/ no ischemic changes. VQ scan with low probability for PE. -Discussed with patient's application architect, Dr. Engel, doubt cardiac etiology, cleared from cardiology standpoint -Continue ASA, Statin, B-herman, NTG/Morphine prn. -O2 and nebs as needed -Incentive spirometry = Treatment for hidradenitis as below. //Chest Wall Infection, Failed Outpatient: secondary to Hidradenitis, on antibiotics x1 wk for chest wall infection. Reviewed: Afebrile with no leukocytosis. Chest CT showed induration in the upper abdominal wall on the right with nonspecific mediastinal and axillary adenopathy. -Wound culture collected, results pending -Continue oral clindamycin pending wound culture -Consulted plastic surgery, planning on chest and buttocks wound excision in OR = 02/17. Postop day 0 surgical excision. Discussed with nursing as above. Surgery notified about bleeding. Appreciate plastic surgery assistance. = 02/18. Postop day 1 surgical excision left axillary hidradenitis. Discussed with infectious disease. Continue antibiotics for several more days. If the affected area has been completely resected, can discontinue antibiotics. //Hypokalemia. Potassium 5.8. I'll says as per nephrology. //Acute blood loss anemia. -Hemoglobin 8.7 from 8.3 yesterday, status post 2 units of blood on 02/18 for operative blood loss. Continue to follow. //Leukocytosis. White blood cell count 13.7. Likely secondary to surgical stress. No signs of acute or worsening infection. Continue to monitor. //ESRD on HD: M/W/F. Last HD on Tuesday w/ no complications, -consulted Nephrology to resume HD. -Continue cinacalcet and sevelamer //Hypertension: BP is labile. Currently elevated, likely compounded by pain and due for dialysis. -Continue losartan, nifedipine, carvedilol, hydralazine, Imdur -Clonidine as needed DM: Sliding scale w/ Accu-Cheks. DVT Prophylaxis: Heparin sq Discharge Planning Postop hidradenitis excision. Pending surgical clearance. Will need to see if the affected area was completely excised, in which case patient will likely only need several more days of antibiotics. Jaden Bates MD Feb 18, 2017 15:12
--- NOTE | 2017-02-18 17:18 | PD.CARD.PN ---
Subjective Subjective Remarks No CP or SOB, c/o fatigue Objective Medications Administered Medications Medications (Trade) Dose Ordered Sig/Bulmaro Route PRN Reason Start Time Stop Time Status Last Admin Dose Admin Insulin Aspart (NovoLOG SUPPLEMENTAL SCALE) 1 ACHS SLIDING SCALE SQ 02/14/17 08:00 02/14/17 12:00 Sodium Chloride (NS Flush) 2 ml UNSCH PRN IV FLUSH FLUSH AFTER USING IV ACCESS 02/13/17 23:30 02/14/17 05:06 Sodium Chloride (NS Flush) 2 ml BID IV FLUSH 02/14/17 09:00 02/17/17 21:00 Ondansetron HCl (Zofran Inj) 4 mg Q6H PRN IVP NAUSEA OR VOMITING 02/13/17 23:30 02/15/17 22:31 Heparin Sodium (Porcine) (Heparin Inj) 5,000 units Q12H SQ 02/14/17 09:00 02/15/17 22:18 Acetaminophen/ Hydrocodone Bitart (Pomona 5-325 Mg) 1 tab Q4H PRN PO PAIN SCALE 3 TO 5 02/13/17 23:30 02/18/17 14:32 Morphine Sulfate (Morphine Inj) 2 mg Q3H PRN IV PUSH Pain 6-10 02/13/17 23:30 02/18/17 01:09 Senna/Docusate Sodium (Mena-Colace) 1 tab BID PO 02/14/17 09:00 02/17/17 09:14 Carvedilol (Coreg) 12.5 mg BID PO 02/14/17 09:00 02/16/17 21:56 Cinacalcet (Sensipar) 30 mg DAILY PO 02/14/17 09:00 02/17/17 09:00 Clindamycin HCl (Cleocin) 150 mg Q6H PO 02/13/17 23:30 02/18/17 05:37 Hydralazine HCl (Apresoline) 50 mg TID PO 02/14/17 09:00 02/16/17 17:13 Isosorbide Mononitrate (Ismo) 20 mg BID PO 02/14/17 09:00 02/16/17 21:56 Losartan Potassium (Cozaar) 100 mg HS PO 02/14/17 21:00 02/16/17 21:55 Mirtazapine (Remeron) 15 mg HS PO 02/14/17 21:00 02/16/17 21:55 Nifedipine (Procardia) 20 mg Q8HR PO 02/14/17 06:00 02/18/17 05:37 Sevelamer Carbonate (Renvela) 1,600 mg TIDAC PO 02/14/17 08:00 02/17/17 09:14 Pantoprazole Sodium (Protonix) 40 mg DAILY PO 02/14/17 09:00 02/17/17 09:11 Aspirin (Ecotrin Ec) 81 mg DAILY PO 02/14/17 09:00 02/15/17 11:21 Pravastatin Sodium (Pravachol) 40 mg DAILY PO 02/14/17 09:00 02/17/17 09:11 Albumin Human (Albumin 25% Inj) 25 gm UNSCH PRN IV WITH DIALYSIS 02/14/17 11:30 02/18/17 10:05 Ondansetron HCl (Zofran Inj) 4 mg UNSCH PRN IV PUSH WITH DIALYSIS 02/14/17 11:30 02/17/17 06:26 Diphenhydramine HCl (Benadryl) 25 mg UNSCH PRN PO for hives/itching/anaphylaxis 02/14/17 11:30 02/18/17 11:53 Epoetin Roverto (Epogen Inj) 13,000 units UNSCH PRN IV WITH DIALYSIS 02/14/17 11:30 02/18/17 10:06 Gelatin (Gelfoam 12 Mm/7 Mm Top) 1 foam UNSCH PRN TOP SEE LABEL COMMENTS 02/14/17 11:30 02/18/17 10:06 Doxepin HCl (SINEquan) 300 mg HS PO 02/14/17 21:00 02/16/17 21:55 Vital Signs / I&O Vital Signs Date Time Temp Pulse Resp B/P (MAP) Pulse Ox O2 Delivery O2 Flow Rate FiO2 02/18/17 13:41 96.9 93 19 128/60 (82) 95 02/18/17 08:00 97.8 81 17 104/57 (73) 95 02/18/17 04:00 98.0 83 16 113/56 (75) 100 02/18/17 00:59 98.3 88 16 100/51 94 02/18/17 00:00 98.4 83 16 88/49 (62) 98 02/17/17 20:52 98.3 82 14 92/57 99 02/17/17 20:00 97.2 87 13 96/46 (63) 98 02/17/17 18:18 99.0 86 16 96/59 96 I/O 02/17/17 02/17/17 02/17/17 02/18/17 02/18/17 02/18/17 07:00 15:00 23:00 07:00 15:00 23:00 Intake Total 180 ml 960 ml 400 ml 120 ml Output Total 0 ml 1300 ml Balance 180 ml 960 ml 400 ml -1180 ml Intake Oral 180 ml 960 ml 120 ml Packed Cells 400 ml Output Urine Total 0 ml Hemodialysis 1300 ml # Voids 0 0 # Bowel Movements 0 0 Physical Exam GENERAL: In NAD SKIN: Warm and dry. HEAD: Normocephalic. EYES: No scleral icterus. No injection or drainage. NECK: Supple, trachea midline. No JVD or lymphadenopathy. CARDIOVASCULAR: Regular rate and rhythm without murmurs, gallops, or rubs. RESPIRATORY: Breath sounds equal bilaterally. No accessory muscle use. Few rhonchi. GASTROINTESTINAL: Abdomen soft, non-tender, nondistended. MUSCULOSKELETAL: No cyanosis, trace edema. Laboratory Laboratory Tests Test 02/18/17 05:25 White Blood Count 13.7 TH/MM3 Red Blood Count 3.14 MIL/MM3 Hemoglobin 8.7 GM/DL Hematocrit 27.5 % Mean Corpuscular Volume 87.4 FL Mean Corpuscular Hemoglobin 27.7 PG Mean Corpuscular Hemoglobin Concent 31.7 % Red Cell Distribution Width 19.9 % Platelet Count 356 TH/MM3 Mean Platelet Volume 7.2 FL Neutrophils (%) (Auto) 77.9 % Lymphocytes (%) (Auto) 8.9 % Monocytes (%) (Auto) 10.7 % Eosinophils (%) (Auto) 2.2 % Basophils (%) (Auto) 0.3 % Neutrophils # (Auto) 10.7 TH/MM3 Lymphocytes # (Auto) 1.2 TH/MM3 Monocytes # (Auto) 1.5 TH/MM3 Eosinophils # (Auto) 0.3 TH/MM3 Basophils # (Auto) 0.0 TH/MM3 CBC Comment DIFF FINAL Differential Comment Blood Urea Nitrogen 53 MG/DL Creatinine 12.26 MG/DL Random Glucose 66 MG/DL Calcium Level 8.7 MG/DL Sodium Level 136 MEQ/L Potassium Level 5.8 MEQ/L Chloride Level 97 MEQ/L Carbon Dioxide Level 28.3 MEQ/L Anion Gap 11 MEQ/L Estimat Glomerular Filtration Rate 5 ML/MIN Assessment and Plan Problem List: (1) Atypical chest pain ICD Codes: R07.89 - Other chest pain (2) Hypertension ICD Codes: I10 - Hypertension Status: Chronic (3) DM (diabetes mellitus) ICD Codes: E11.9 - Type 2 diabetes mellitus without complications Status: Chronic (4) ESRD (end stage renal disease) on dialysis ICD Codes: N18.6 - End stage renal failure on dialysis; Z99.2 - Dependence on renal dialysis Status: Chronic (5) DEANNA (obstructive sleep apnea) ICD Codes: G47.33 - Obstructive sleep apnea (adult) (pediatric) Status: Acute Assessment and Plan No new cardiac issues. Atypical, noncardiac CP, likely of musculoskeletal origin , now improved. No evidence of ACS. Continue current program. Tolerating dialysis well. Remains stable. OK to discharge home from cardiac standpoint. Will schedule card f/u as outpt. James Engel MD Feb 18, 2017 17:18
[2017-02-18] MEDS: MIRTAZAPINE 15 MG TAB PO SCH (20:02)
[2017-02-18] MEDS: LOSARTAN 50 MG TAB PO SCH (20:02)
[2017-02-18] MEDS: DOXEPIN HCL 50 MG CAP PO SCH (20:04)
[2017-02-19] VITALS (9 sets, daily range): BP systolic 80–138; BP diastolic 36–65; PULSE 87–116; RESP 16–20; TEMP 96.2–97.6; O2SAT 92–100
[2017-02-19] MEDS: CLINDAMYCIN 150 MG CAP PO SCH ×5 (00:06→22:45)
[2017-02-19] MEDS: MORPHINE SULFATE 4 MG/ML INJ IV PUSH PRN ×2 (00:07→05:41)
[2017-02-19] MEDS: NIFEdipine 20 MG CAP PO SCH ×3 (05:35→19:35)
[2017-02-19 07:00] LABS: AUTOMATED NEUTROPHIL # 10.8 TH/MM3 (1.8-7.7); BASOPHIL # 0.1 TH/MM3 (0-0.2); BASOPHIL % 0.4 % (0.0-2.0); EOSINOPHIL # 0.3 TH/MM3 (0-0.4); EOSINOPHIL % 2.3 % (0.0-4.0); HEMATOCRIT 29.6 % (39.0-51.0); HEMO FLAGS DIFF FINAL; LYMPH % 7.6 % (9.0-44.0); MEAN CELL VOLUME 88.6 FL (80.0-100.0); MEAN CORPUSCULAR HGB CONC 31.6 % (32.0-36.0); MONO % 9.2 % (0.0-8.0); NEUT % 80.5 % (16.0-70.0); PLATELET COUNT 375 TH/MM3 (150-450); RED BLOOD COUNT 3.34 MIL/MM3 (4.50-5.90); RED CELL DISTRIBUTION WIDTH 19.9 % (11.6-17.2); WHITE BLOOD COUNT 13.4 TH/MM3 (4.0-11.0)
[2017-02-19 07:15] LABS: BICARBONATE 30.6 MEQ/L (21.0-32.0); MAGNESIUM 2.6 MG/DL (1.5-2.5); POTASSIUM 4.9 MEQ/L (3.5-5.1)
[2017-02-19] MEDS: INSULIN ASPART SUPPLEMENTAL SCALE SQ SCH ×4 (08:00→19:38)
[2017-02-19] MEDS: SODIUM CHLORIDE 0.9% FLUSH 10 ML FLUSH IV FLUSH SCH ×2 (09:00→19:36)
[2017-02-19] MEDS: DOCUSATE SODIUM 50 MG/SENNA 8.6 MG TAB PO SCH ×2 (09:00→19:36)
[2017-02-19] MEDS: hydrALAZINE HCL 100 MG TAB PO SCH ×3 (09:00→18:36)
[2017-02-19] MEDS: SEVELAMER CARBONATE 800 MG TAB PO SCH ×3 (09:48→18:36)
[2017-02-19] MEDS: CARVEDILOL 12.5 MG TAB PO SCH ×2 (09:49→19:34)
[2017-02-19] MEDS: PRAVASTATIN SOD 40 MG TAB PO SCH (09:50)
[2017-02-19] MEDS: ISOSORBIDE MONONITRATE 20 MG TAB PO SCH ×2 (09:50→19:35)
[2017-02-19] MEDS: ASPIRIN EC 81 MG TABEC PO SCH (09:50)
[2017-02-19] MEDS: CINACALCET HYDROCHLORIDE 30 MG TAB PO SCH (09:50)
[2017-02-19] MEDS: HEPARIN SODIUM - SQ 10,000 UNITS/ML VIAL SQ SCH ×2 (09:51→19:35)
--- NOTE | 2017-02-19 12:37 | HHI.NPPN ---
Subjective History of Present Illness 46-year-old male with history of end-stage renal disease on hemodialysis who was having chest pain. Last 2 days accompanied with increasing shortness of breath he came to the emergency room with these complaints and was admitted, he goes on dialysis on Tuesday, Tuesday and Tuesday and follows with Dr. Richardson. Additional Remarks Patient is alert, no SOB, feeling better. Review of Systems General Constitutional: Fatigue Musculoskeletal MS: Pain/Stiffness Objective Data Data Vital Signs Date Time Temp Pulse Resp B/P (MAP) Pulse Ox O2 Delivery O2 Flow Rate FiO2 02/19/17 12:00 97.6 87 18 125/60 (81) 96 02/19/17 08:10 98 Nasal Cannula 1.00 02/19/17 08:00 96.2 116 16 80/36 (51) 96 91/52 (65) 02/19/17 04:00 96.6 104 20 92/52 (65) 92 02/19/17 00:00 96.5 116 20 129/63 (85) 98 02/18/17 20:00 97.1 111 20 123/69 (87) 95 02/18/17 19:08 95 Nasal Cannula 2.00 02/18/17 18:50 107 02/18/17 13:41 96.9 93 19 128/60 (82) 95 -: 02/19/17 0458 02/19/17 0458 Physical Exam General Appearance: Well Developed, No Acute Distress, Comfortable Neck Neck Exam: Neck Supple Pulmonary Resp Exam: Clear Bilaterally, Breath Sounds Equal Cardiology CV Exam: Regular, Normal Sinus Rhythm Gastrointestinal/Abdomen GI Exam: Soft, Non-Tender, Bowel Sounds Present, Non-Distended Integumentary Skin Exam: Lesion(s) Extremeties Extremities Exam: Trace Edema Neurologic Neuro Exam: Alert, Awake, Oriented Psychiatric Psych Exam: Appropriate Responses Assessment/Plan Problem List: (1) ESRD (end stage renal disease) on dialysis ICD Codes: N18.6 - End stage renal failure on dialysis; Z99.2 - Dependence on renal dialysis Status: Chronic Plan: He is on hemodialysis MWF Chest x-ray was clear VQ scan is low probability follows with Dr. Richardson Staying for chest wound s/p debridement with Plastic surgery HD done yesterday. The BP has been low off and on, decrease Losartan to 50 mg daily. (2) Hypertension, accelerated ICD Codes: I10 - Hypertension, accelerated Status: Chronic Plan: Blood pressure is labile followed blood pressure after dialysis (3) Diabetes ICD Codes: E11.9 - Diabetes mellitus Status: Chronic Plan: Continue to monitor Problem Qualifiers (1) Diabetes: Teresita Carroll MD Feb 19, 2017 12:37
--- NOTE | 2017-02-19 13:31 | HHI.PR ---
Subjective Remarks Follow-up chest wall infection 02/19/17-patient seen and examined, denies any acute chest pain and currently afebrile Objective Vitals Vital Signs Date Time Temp Pulse Resp B/P (MAP) Pulse Ox O2 Delivery O2 Flow Rate FiO2 02/19/17 12:00 97.6 87 18 125/60 (81) 96 02/19/17 08:10 98 Nasal Cannula 1.00 02/19/17 08:00 96.2 116 16 80/36 (51) 96 91/52 (65) 02/19/17 04:00 96.6 104 20 92/52 (65) 92 02/19/17 00:00 96.5 116 20 129/63 (85) 98 02/18/17 20:00 97.1 111 20 123/69 (87) 95 02/18/17 19:08 95 Nasal Cannula 2.00 02/18/17 18:50 107 02/18/17 13:41 96.9 93 19 128/60 (82) 95 I/O 02/18/17 02/18/17 02/18/17 02/19/17 02/19/17 02/19/17 07:00 15:00 23:00 07:00 15:00 23:00 Intake Total 400 ml 120 ml 25 ml 240 ml Output Total 1300 ml Balance 400 ml -1180 ml 25 ml 240 ml Intake Oral 120 ml 25 ml 240 ml Packed Cells 400 ml Hemodialysis 1300 ml # Voids 0 0 Result Diagram: 02/19/17 0458 02/19/17 0458 Imaging Last Impressions Lung Scan-VQ Nuclear Medicine 02/14/17 0000 Signed Impressions: Service Date/Time: Tuesday, February 14, 2017 11:49 - CONCLUSION: Low probability scan for pulmonary embolus. Prieto Ramírez MD Chest CT 02/14/17 0000 Signed Impressions: Service Date/Time: Tuesday, February 14, 2017 10:17 - CONCLUSION: Minimal induration in the abdominal wall on the right without bony abnormality No suspicious lung lesions identified Nonspecific mediastinal and axillary adenopathy. Bill Gotti MD FACR Chest X-Ray 02/13/172102 Signed Impressions: Service Date/Time: Monday, February 13, 2017 21:08 - CONCLUSION: No evidence of acute cardiopulmonary disease. Casimiro Hair MD Objective Remarks GENERAL: NAD SKIN: Warm and dry. HEAD: Normocephalic. EYES: No scleral icterus. No injection or drainage. NECK: Supple, trachea midline. No JVD or lymphadenopathy. CARDIOVASCULAR: Regular rate and rhythm without murmurs, gallops, or rubs. RESPIRATORY: Breath sounds equal bilaterally. No accessory muscle use. Dressing over the area of incision GASTROINTESTINAL: Abdomen soft, non-tender, nondistended. MUSCULOSKELETAL: No cyanosis, or edema. BACK: Nontender without obvious deformity. No CVA tenderness. A/P Problem List: (1) Chest pain ICD Code: R07.9 - Chest pain Status: Resolved (2) Elevated troponin ICD Code: R79.89 - Other specified abnormal findings of blood chemistry Status: Chronic (3) ESRD (end stage renal disease) on dialysis ICD Code: N18.6 - End stage renal failure on dialysis; Z99.2 - Dependence on renal dialysis Status: Chronic (4) Skin infection, bacterial ICD Code: L08.9 - Local infection of the skin and subcutaneous tissue, unspecified; B96.89 - Other specified bacterial agents as the cause of diseases classified elsewhere Status: Acute (5) DM (diabetes mellitus) ICD Code: E11.9 - Type 2 diabetes mellitus without complications Status: Chronic Assessment and Plan 46-year-old man with Chest Wall Infection, Failed Outpatient: secondary to Hidradenitis Continue oral clindamycin pending wound culture. Appreciate input from ID Appreciate plastic surgery assistance. Atypical Chest Pain and Dyspnea-resolved cleared from cardiology standpoint Continue ASA, Statin, B-herman, NTG/Morphine prn. Acute blood loss anemia. status post 2 units of blood on 02/18 for operative blood loss. Continue to follow. Leukocytosis. White blood cell count 13.7. Likely secondary to surgical stress. No signs of acute or worsening infection. Continue to monitor. ESRD on HD: M/W/F. Appreciate input from nephrology Continue cinacalcet and sevelamer Hypertension Continue losartan, nifedipine, carvedilol, hydralazine, Imdur Clonidine as needed DM: Sliding scale w/ Accu-Cheks. DVT Prophylaxis: Heparin sq Aiden Chase MD Feb 19, 2017 13:31
[2017-02-19] MEDS: ACETAMINOPHEN/HYDROcodone 325 MG/5 MG TAB PO PRN (16:27)
[2017-02-19] MEDS: PANTOPRAZOLE SOD 40 MG DELAYED RELEASE TAB PO SCH (16:27)
[2017-02-19] MEDS: ONDANSETRON HCL 4 MG/2 ML VIAL IVP PRN (19:35)
[2017-02-19] MEDS: MIRTAZAPINE 15 MG TAB PO SCH (19:35)
[2017-02-19] MEDS: LOSARTAN 50 MG TAB PO SCH (19:35)
[2017-02-19] MEDS: DOXEPIN HCL 50 MG CAP PO SCH (22:45)
[2017-02-20] VITALS (8 sets, daily range): BP systolic 97–130; BP diastolic 51–69; PULSE 79–95; RESP 16–20; TEMP 96.3–97.7; O2SAT 79–100
[2017-02-20] MEDS: NIFEdipine 20 MG CAP PO SCH ×2 (06:04→15:23)
[2017-02-20] MEDS: CLINDAMYCIN 150 MG CAP PO SCH ×4 (06:04→22:07)
[2017-02-20] MEDS: MORPHINE SULFATE 4 MG/ML INJ IV PUSH PRN ×2 (06:07→22:07)
[2017-02-20] MEDS: ASPIRIN EC 81 MG TABEC PO SCH (08:17)
[2017-02-20] MEDS: SEVELAMER CARBONATE 800 MG TAB PO SCH ×3 (08:17→17:00)
[2017-02-20] MEDS: hydrALAZINE HCL 100 MG TAB PO SCH ×3 (08:18→17:00)
[2017-02-20] MEDS: CINACALCET HYDROCHLORIDE 30 MG TAB PO SCH (08:18)
[2017-02-20] MEDS: CARVEDILOL 12.5 MG TAB PO SCH ×2 (08:19→21:49)
[2017-02-20] MEDS: PANTOPRAZOLE SOD 40 MG DELAYED RELEASE TAB PO SCH (08:19)
[2017-02-20] MEDS: PRAVASTATIN SOD 40 MG TAB PO SCH (08:19)
[2017-02-20] MEDS: ISOSORBIDE MONONITRATE 20 MG TAB PO SCH ×2 (08:19→21:49)
[2017-02-20] MEDS: SODIUM CHLORIDE 0.9% FLUSH 10 ML FLUSH IV FLUSH SCH ×2 (08:20→21:50)
[2017-02-20] MEDS: DOCUSATE SODIUM 50 MG/SENNA 8.6 MG TAB PO SCH ×2 (08:20→21:00)
[2017-02-20] MEDS: HEPARIN SODIUM - SQ 10,000 UNITS/ML VIAL SQ SCH ×2 (08:20→21:50)
[2017-02-20] MEDS: INSULIN ASPART SUPPLEMENTAL SCALE SQ SCH ×4 (08:20→21:00)
--- NOTE | 2017-02-20 10:14 | HHI.PR ---
Subjective Remarks Follow-up chest wall infection 02/19/17-patient seen and examined, denies any acute chest pain and currently afebrile 02/20/17-patient seen and examined, still complains of left 5th finger swelling and painful, otherwise stable and no other complaints Objective Vitals Vital Signs Date Time Temp Pulse Resp B/P (MAP) Pulse Ox O2 Delivery O2 Flow Rate FiO2 02/20/17 08:00 97.0 84 16 127/59 (81) 97 02/20/17 04:00 96.3 79 20 121/60 (80) 95 02/20/17 00:00 97.1 95 20 97/51 (66) 79 02/19/17 20:24 87 02/19/17 20:00 96.7 87 20 138/65 (89) 100 02/19/17 19:28 107 02/19/17 17:27 20 02/19/17 16:00 97.4 94 18 110/64 (79) 96 02/19/17 12:00 97.6 87 18 125/60 (81) 96 I/O 02/19/17 02/19/17 02/19/17 02/20/17 02/20/17 02/20/17 07:00 15:00 23:00 07:00 15:00 23:00 Intake Total 240 ml 2100 ml 240 ml Output Total 0 ml Balance 240 ml 2100 ml 240 ml Intake Oral 240 ml 2100 ml 240 ml Output Urine Total 0 ml # Voids 0 0 # Bowel Movements 0 Result Diagram: 02/19/17 0458 02/19/17 0458 Imaging Last Impressions Lung Scan-VQ Nuclear Medicine 02/14/17 0000 Signed Impressions: Service Date/Time: Tuesday, February 14, 2017 11:49 - CONCLUSION: Low probability scan for pulmonary embolus. Prieto Ramírez MD Chest CT 02/14/17 0000 Signed Impressions: Service Date/Time: Tuesday, February 14, 2017 10:17 - CONCLUSION: Minimal induration in the abdominal wall on the right without bony abnormality No suspicious lung lesions identified Nonspecific mediastinal and axillary adenopathy. Bill Gotti MD FACR Chest X-Ray 02/13/172102 Signed Impressions: Service Date/Time: Monday, February 13, 2017 21:08 - CONCLUSION: No evidence of acute cardiopulmonary disease. Casimiro Hair MD Objective Remarks GENERAL: NAD SKIN: Warm and dry. HEAD: Normocephalic. EYES: No scleral icterus. No injection or drainage. NECK: Supple, trachea midline. No JVD or lymphadenopathy. CARDIOVASCULAR: Regular rate and rhythm without murmurs, gallops, or rubs. RESPIRATORY: Breath sounds equal bilaterally. No accessory muscle use. Dressing over the area of incision GASTROINTESTINAL: Abdomen soft, non-tender, nondistended. MUSCULOSKELETAL: No cyanosis, or edema. Swelling left fifth finger BACK: Nontender without obvious deformity. No CVA tenderness. A/P Problem List: (1) Chest pain ICD Code: R07.9 - Chest pain Status: Resolved (2) Elevated troponin ICD Code: R79.89 - Other specified abnormal findings of blood chemistry Status: Chronic (3) ESRD (end stage renal disease) on dialysis ICD Code: N18.6 - End stage renal failure on dialysis; Z99.2 - Dependence on renal dialysis Status: Chronic (4) Skin infection, bacterial ICD Code: L08.9 - Local infection of the skin and subcutaneous tissue, unspecified; B96.89 - Other specified bacterial agents as the cause of diseases classified elsewhere Status: Acute (5) DM (diabetes mellitus) ICD Code: E11.9 - Type 2 diabetes mellitus without complications Status: Chronic Assessment and Plan 46-year-old man with Chest Wall Infection, Failed Outpatient: secondary to Hidradenitis Continue oral clindamycin . Appreciate input from ID Appreciate plastic surgery assistance. Atypical Chest Pain and Dyspnea-resolved cleared from cardiology standpoint Continue ASA, Statin, B-herman, Morphine prn. Acute blood loss anemia. status post 2 units of blood on 02/18 for operative blood loss. Continue to follow. Leukocytosis. White blood cell count 13.7. Likely secondary to surgical stress. No signs of acute or worsening infection. Continue to monitor. ESRD on HD: M/W/F. Appreciate input from nephrology Continue cinacalcet and sevelamer Hypertension Continue losartan, nifedipine, carvedilol, hydralazine, Imdur Clonidine as needed DM: Sliding scale w/ Accu-Cheks. Gout rule out Check uric acid and treat accordingly DVT Prophylaxis: Heparin sq Aiden Chase MD Feb 20, 2017 10:14
--- NOTE | 2017-02-20 10:23 | HHI.NPPN ---
Subjective History of Present Illness 46-year-old male with history of end-stage renal disease on hemodialysis who was having chest pain. Last 2 days accompanied with increasing shortness of breath he came to the emergency room with these complaints and was admitted, he goes on dialysis on Tuesday, Tuesday and Tuesday and follows with Dr. Richardson. Additional Remarks Patient is alert, no SOB, with nasal cannula, no pain in the wounds. Review of Systems General Constitutional: Fatigue Musculoskeletal MS: Pain/Stiffness Objective Data Data Vital Signs Date Time Temp Pulse Resp B/P (MAP) Pulse Ox O2 Delivery O2 Flow Rate FiO2 02/20/17 08:00 97.0 84 16 127/59 (81) 97 02/20/17 04:00 96.3 79 20 121/60 (80) 95 02/20/17 00:00 97.1 95 20 97/51 (66) 79 02/19/17 20:24 87 02/19/17 20:00 96.7 87 20 138/65 (89) 100 02/19/17 19:28 107 02/19/17 17:27 20 02/19/17 16:00 97.4 94 18 110/64 (79) 96 02/19/17 12:00 97.6 87 18 125/60 (81) 96 -: 02/19/17 0458 02/19/17 0458 Physical Exam General Appearance: Well Developed, No Acute Distress, Comfortable Neck Neck Exam: Neck Supple Pulmonary Resp Exam: Clear Bilaterally, Breath Sounds Equal Cardiology CV Exam: Regular, Normal Sinus Rhythm Gastrointestinal/Abdomen GI Exam: Soft, Non-Tender, Bowel Sounds Present, Non-Distended Integumentary Skin Exam: Lesion(s) Extremeties Extremities Exam: Trace Edema Neurologic Neuro Exam: Alert, Awake, Oriented Psychiatric Psych Exam: Appropriate Responses Assessment/Plan Problem List: (1) ESRD (end stage renal disease) on dialysis ICD Codes: N18.6 - End stage renal failure on dialysis; Z99.2 - Dependence on renal dialysis Status: Chronic Plan: He is on hemodialysis MWF Chest x-ray was clear VQ scan is low probability follows with Dr. Richardson Staying for chest wound s/p debridement with Plastic surgery HD done on Tue. The BP is better today. Continue dressing change of the wounds. HD again in AM. (2) Hypertension, accelerated ICD Codes: I10 - Hypertension, accelerated Status: Chronic Plan: Blood pressure is labile followed blood pressure after dialysis (3) Diabetes ICD Codes: E11.9 - Diabetes mellitus Status: Chronic Plan: Continue to monitor Problem Qualifiers (1) Diabetes: Teresita Carroll MD Feb 20, 2017 10:23
[2017-02-20] MEDS: ACETAMINOPHEN/HYDROcodone 325 MG/5 MG TAB PO PRN (16:10)
[2017-02-20] MEDS: LOSARTAN 50 MG TAB PO SCH (21:48)
[2017-02-20] MEDS: MIRTAZAPINE 15 MG TAB PO SCH (21:48)
[2017-02-20] MEDS: DOXEPIN HCL 50 MG CAP PO SCH (21:49)
[2017-02-21] VITALS: BP 104/60; PULSE 81; RESP 17; TEMP 97; O2SAT 97
[2017-02-21] MEDS: NIFEdipine 20 MG CAP PO SCH ×2 (00:05→06:11)
[2017-02-21] MEDS: ACETAMINOPHEN/HYDROcodone 325 MG/5 MG TAB PO PRN (00:05)
[2017-02-21 04:00] VITALS: BP 103/54; PULSE 92; RESP 17; TEMP 97.7; O2SAT 96
[2017-02-21] MEDS: CLINDAMYCIN 150 MG CAP PO SCH ×2 (06:11→12:12)
[2017-02-21] MEDS: INSULIN ASPART SUPPLEMENTAL SCALE SQ SCH ×2 (06:17→12:00)
[2017-02-21 07:45] VITALS: O2SAT 96
[2017-02-21 08:00] VITALS: BP 128/60; PULSE 86; RESP 19; TEMP 98.1; O2SAT 95
[2017-02-21] MEDS: SEVELAMER CARBONATE 800 MG TAB PO SCH (08:00)
--- NOTE | 2017-02-21 08:42 | PD.CARD.PN ---
Subjective Subjective Remarks No CP or SOB, feels much better, wants to go home Objective Medications Administered Medications Medications (Trade) Dose Ordered Sig/Bulmaro Route PRN Reason Start Time Stop Time Status Last Admin Dose Admin Insulin Aspart (NovoLOG SUPPLEMENTAL SCALE) 1 ACHS SLIDING SCALE SQ 02/14/17 08:00 02/14/17 12:00 Sodium Chloride (NS Flush) 2 ml UNSCH PRN IV FLUSH FLUSH AFTER USING IV ACCESS 02/13/17 23:30 02/14/17 05:06 Sodium Chloride (NS Flush) 2 ml BID IV FLUSH 02/14/17 09:00 02/20/17 21:50 Ondansetron HCl (Zofran Inj) 4 mg Q6H PRN IVP NAUSEA OR VOMITING 02/13/17 23:30 02/19/17 19:35 Heparin Sodium (Porcine) (Heparin Inj) 5,000 units Q12H SQ 02/14/17 09:00 02/20/17 21:50 Acetaminophen/ Hydrocodone Bitart ([place] 5-325 Mg) 1 tab Q4H PRN PO PAIN SCALE 3 TO 5 02/13/17 23:30 02/21/17 00:05 Morphine Sulfate (Morphine Inj) 2 mg Q3H PRN IV PUSH Pain 6-10 02/13/17 23:30 02/20/17 22:07 Senna/Docusate Sodium (Mena-Colace) 1 tab BID PO 02/14/17 09:00 02/17/17 09:14 Carvedilol (Coreg) 12.5 mg BID PO 02/14/17 09:00 02/20/17 21:49 Cinacalcet (Sensipar) 30 mg DAILY PO 02/14/17 09:00 02/19/17 09:50 Clindamycin HCl (Cleocin) 150 mg Q6H PO 02/13/17 23:30 02/21/17 06:11 Hydralazine HCl (Apresoline) 50 mg TID PO 02/14/17 09:00 02/20/17 17:00 Isosorbide Mononitrate (Ismo) 20 mg BID PO 02/14/17 09:00 02/20/17 21:49 Mirtazapine (Remeron) 15 mg HS PO 02/14/17 21:00 02/20/17 21:48 Nifedipine (Procardia) 20 mg Q8HR PO 02/14/17 06:00 02/21/17 06:11 Sevelamer Carbonate (Renvela) 1,600 mg TIDAC PO 02/14/17 08:00 02/20/17 17:00 Pantoprazole Sodium (Protonix) 40 mg DAILY PO 02/14/17 09:00 02/20/17 08:19 Aspirin (Ecotrin Ec) 81 mg DAILY PO 02/14/17 09:00 02/20/17 08:17 Pravastatin Sodium (Pravachol) 40 mg DAILY PO 02/14/17 09:00 02/20/17 08:19 Albumin Human (Albumin 25% Inj) 25 gm UNSCH PRN IV WITH DIALYSIS 02/14/17 11:30 02/18/17 10:05 Ondansetron HCl (Zofran Inj) 4 mg UNSCH PRN IV PUSH WITH DIALYSIS 02/14/17 11:30 02/17/17 06:26 Diphenhydramine HCl (Benadryl) 25 mg UNSCH PRN PO for hives/itching/anaphylaxis 02/14/17 11:30 02/18/17 11:53 Epoetin Roverto (Epogen Inj) 13,000 units UNSCH PRN IV WITH DIALYSIS 02/14/17 11:30 02/18/17 10:06 Gelatin (Gelfoam 12 Mm/7 Mm Top) 1 foam UNSCH PRN TOP SEE LABEL COMMENTS 02/14/17 11:30 02/18/17 10:06 Doxepin HCl (SINEquan) 300 mg HS PO 02/14/17 21:00 02/20/17 21:49 Losartan Potassium (Cozaar) 50 mg HS PO 02/19/17 21:00 02/20/17 21:48 Vital Signs / I&O Vital Signs Date Time Temp Pulse Resp B/P (MAP) Pulse Ox O2 Delivery O2 Flow Rate FiO2 02/21/17 07:45 96 Nasal Cannula 1.00 02/21/17 04:00 97.7 92 17 103/54 (70) 96 02/21/17 00:00 97.0 81 17 104/60 (75) 97 02/20/17 22:19 95 Nasal Cannula 1.00 02/20/17 21:32 98 Nasal Cannula 2.00 02/20/17 20:00 96.9 85 17 109/56 (73) 98 02/20/17 19:02 90 02/20/17 16:00 97.7 84 20 130/58 (82) 97 02/20/17 12:00 97.1 79 18 125/59 (81) 97 I/O 02/20/17 02/20/17 02/20/17 02/21/17 02/21/17 02/21/17 07:00 15:00 23:00 07:00 15:00 23:00 Intake Total 240 ml 1200 ml 240 ml Output Total 325 ml 175 ml Balance 240 ml -325 ml 1025 ml 240 ml Intake Oral 240 ml 1200 ml 240 ml Output Urine Total 325 ml 175 ml # Voids 1 # Bowel Movements 0 Physical Exam GENERAL: In NAD SKIN: Warm and dry. HEAD: Normocephalic. EYES: No scleral icterus. No injection or drainage. NECK: Supple, trachea midline. No JVD or lymphadenopathy. CARDIOVASCULAR: Regular rate and rhythm without murmurs, gallops, or rubs. RESPIRATORY: Breath sounds equal bilaterally. No accessory muscle use. Few rhonchi. GASTROINTESTINAL: Abdomen soft, non-tender, nondistended. MUSCULOSKELETAL: No cyanosis, trace edema. Laboratory Laboratory Tests Test 02/21/17 05:58 Uric Acid 9.2 MG/DL Assessment and Plan Problem List: (1) Atypical chest pain ICD Codes: R07.89 - Other chest pain (2) Hypertension ICD Codes: I10 - Hypertension Status: Chronic (3) DM (diabetes mellitus) ICD Codes: E11.9 - Type 2 diabetes mellitus without complications Status: Chronic (4) ESRD (end stage renal disease) on dialysis ICD Codes: N18.6 - End stage renal failure on dialysis; Z99.2 - Dependence on renal dialysis Status: Chronic (5) DEANNA (obstructive sleep apnea) ICD Codes: G47.33 - Obstructive sleep apnea (adult) (pediatric) Status: Acute Assessment and Plan No new cardiac issues. Atypical, noncardiac CP, likely of musculoskeletal origin , now improved. No evidence of ACS. Continue current program. Tolerating dialysis well. Remains stable. OK to discharge home from cardiac standpoint, possibly today after dialysis. Will schedule cardiology f/u as outpatient. James Engel MD Feb 21, 2017 08:42
[2017-02-21] MEDS: ASPIRIN EC 81 MG TABEC PO SCH (08:43)
[2017-02-21] MEDS: PANTOPRAZOLE SOD 40 MG DELAYED RELEASE TAB PO SCH (08:43)
[2017-02-21] MEDS: ISOSORBIDE MONONITRATE 20 MG TAB PO SCH (08:44)
[2017-02-21] MEDS: CINACALCET HYDROCHLORIDE 30 MG TAB PO SCH (08:45)
[2017-02-21] MEDS: PRAVASTATIN SOD 40 MG TAB PO SCH (08:45)
[2017-02-21] MEDS: DOCUSATE SODIUM 50 MG/SENNA 8.6 MG TAB PO SCH (08:46)
[2017-02-21] MEDS: SODIUM CHLORIDE 0.9% FLUSH 10 ML FLUSH IV FLUSH SCH (08:46)
[2017-02-21] MEDS: HEPARIN SODIUM - SQ 10,000 UNITS/ML VIAL SQ SCH (08:47)
[2017-02-21] MEDS: CARVEDILOL 12.5 MG TAB PO SCH (09:00)
[2017-02-21] MEDS: hydrALAZINE HCL 100 MG TAB PO SCH (09:00)
--- NOTE | 2017-02-21 11:58 | HHI.PR ---
Subjective Remarks Follow-up chest wall infection 02/19/17-patient seen and examined, denies any acute chest pain and currently afebrile 02/20/17-patient seen and examined, still complains of left 5th finger swelling and painful, otherwise stable and no other complaints 02/21/17-patient seen and examined states he wants to be discharged and go home today after dialysis. Objective Vitals Vital Signs Date Time Temp Pulse Resp B/P (MAP) Pulse Ox O2 Delivery O2 Flow Rate FiO2 02/21/17 08:00 98.1 86 19 128/60 (82) 95 02/21/17 07:45 96 Nasal Cannula 1.00 02/21/17 04:00 97.7 92 17 103/54 (70) 96 02/21/17 00:00 97.0 81 17 104/60 (75) 97 02/20/17 22:19 95 Nasal Cannula 1.00 02/20/17 21:32 98 Nasal Cannula 2.00 02/20/17 20:00 96.9 85 17 109/56 (73) 98 02/20/17 19:02 90 02/20/17 16:00 97.7 84 20 130/58 (82) 97 02/20/17 12:00 97.1 79 18 125/59 (81) 97 I/O 02/20/17 02/20/17 02/20/17 02/21/17 02/21/17 02/21/17 07:00 15:00 23:00 07:00 15:00 23:00 Intake Total 240 ml 1200 ml 240 ml Output Total 325 ml 175 ml Balance 240 ml -325 ml 1025 ml 240 ml Intake Oral 240 ml 1200 ml 240 ml Output Urine Total 325 ml 175 ml # Voids 1 # Bowel Movements 0 Result Diagram: 02/19/17 0458 02/19/17 0458 Imaging Last Impressions Lung Scan-VQ Nuclear Medicine 02/14/17 0000 Signed Impressions: Service Date/Time: Tuesday, February 14, 2017 11:49 - CONCLUSION: Low probability scan for pulmonary embolus. Prieto Ramírez MD Chest CT 02/14/17 0000 Signed Impressions: Service Date/Time: Tuesday, February 14, 2017 10:17 - CONCLUSION: Minimal induration in the abdominal wall on the right without bony abnormality No suspicious lung lesions identified Nonspecific mediastinal and axillary adenopathy. Bill Gotti MD FACR Chest X-Ray 02/13/172102 Signed Impressions: Service Date/Time: Monday, February 13, 2017 21:08 - CONCLUSION: No evidence of acute cardiopulmonary disease. Casimiro Hair MD Objective Remarks GENERAL: NAD SKIN: Warm and dry. HEAD: Normocephalic. EYES: No scleral icterus. No injection or drainage. NECK: Supple, trachea midline. No JVD or lymphadenopathy. CARDIOVASCULAR: Regular rate and rhythm without murmurs, gallops, or rubs. RESPIRATORY: Breath sounds equal bilaterally. No accessory muscle use. Dressing over the area of incision GASTROINTESTINAL: Abdomen soft, non-tender, nondistended. MUSCULOSKELETAL: No cyanosis, or edema. Swelling left fifth finger BACK: Nontender without obvious deformity. No CVA tenderness. Procedures 02/16/17 1. Excision above areas right #1 four areas on the chest mainly on the right side. 2. One area on the left axilla anterior axillary fold 4 x 3 cm excision. 3. One area on the right buttock gluteal cleft in the upper part 8 x 4 cm excision. A/P Problem List: (1) Chest pain ICD Code: R07.9 - Chest pain Status: Resolved (2) Elevated troponin ICD Code: R79.89 - Other specified abnormal findings of blood chemistry Status: Chronic (3) ESRD (end stage renal disease) on dialysis ICD Code: N18.6 - End stage renal failure on dialysis; Z99.2 - Dependence on renal dialysis Status: Chronic (4) Skin infection, bacterial ICD Code: L08.9 - Local infection of the skin and subcutaneous tissue, unspecified; B96.89 - Other specified bacterial agents as the cause of diseases classified elsewhere Status: Acute (5) DM (diabetes mellitus) ICD Code: E11.9 - Type 2 diabetes mellitus without complications Status: Chronic Assessment and Plan 46-year-old man with Chest Wall Infection, Failed Outpatient: secondary to Hidradenitis Continue oral clindamycin . Appreciate input from ID Appreciate plastic surgery assistance. Atypical Chest Pain and Dyspnea-resolved cleared from cardiology standpoint Continue ASA, Statin, B-herman, Morphine prn. Acute blood loss anemia. status post 2 units of blood on 02/18 for operative blood loss. Continue to follow. Leukocytosis. White blood cell count 13.7. Likely secondary to surgical stress. No signs of acute or worsening infection. Continue to monitor. ESRD on HD: M/W/F. Appreciate input from nephrology Continue cinacalcet and sevelamer Hypertension Continue losartan, nifedipine, carvedilol, hydralazine, Imdur Clonidine as needed DM: Sliding scale w/ Accu-Cheks. Gout disease Uric acid elevated Start prednisone DVT Prophylaxis: Heparin sq Aiden Chase MD Feb 21, 2017 11:58
[2017-02-21 12:00] VITALS: BP 115/55; PULSE 82; RESP 16; TEMP 98.8; O2SAT 96
[2017-02-21] MEDS ORDERED: PRAV40TA PO (12:11)
[2017-02-21] MEDS ORDERED: COZA50TA PO (12:11)
[2017-02-21] MEDS ORDERED: predniSONE 20 MG TAB PO SCH (12:15)
--- NOTE | 2017-02-21 13:06 | HHI.NPPN ---
Subjective History of Present Illness 46-year-old male with history of end-stage renal disease on hemodialysis who was having chest pain. Last 2 days accompanied with increasing shortness of breath he came to the emergency room with these complaints and was admitted, he goes on dialysis on Tuesday, Tuesday and Tuesday and follows with Dr. Richardson. Additional Remarks Patient is alert, no SOB, with nasal cannula, no pain in the wounds. Review of Systems General Constitutional: Fatigue Musculoskeletal MS: Pain/Stiffness Objective Data Data Vital Signs Date Time Temp Pulse Resp B/P (MAP) Pulse Ox O2 Delivery O2 Flow Rate FiO2 02/21/17 08:00 98.1 86 19 128/60 (82) 95 02/21/17 07:45 96 Nasal Cannula 1.00 02/21/17 04:00 97.7 92 17 103/54 (70) 96 02/21/17 00:00 97.0 81 17 104/60 (75) 97 02/20/17 22:19 95 Nasal Cannula 1.00 02/20/17 21:32 98 Nasal Cannula 2.00 02/20/17 20:00 96.9 85 17 109/56 (73) 98 02/20/17 19:02 90 02/20/17 16:00 97.7 84 20 130/58 (82) 97 -: 02/19/17 0458 02/19/17 0458 Physical Exam General Appearance: Well Developed, No Acute Distress, Comfortable Neck Neck Exam: Neck Supple Pulmonary Resp Exam: Clear Bilaterally, Breath Sounds Equal Cardiology CV Exam: Regular, Normal Sinus Rhythm Gastrointestinal/Abdomen GI Exam: Soft, Non-Tender, Bowel Sounds Present, Non-Distended Integumentary Skin Exam: Lesion(s) Extremeties Extremities Exam: Trace Edema Neurologic Neuro Exam: Alert, Awake, Oriented Psychiatric Psych Exam: Appropriate Responses Assessment/Plan Problem List: (1) ESRD (end stage renal disease) on dialysis ICD Codes: N18.6 - End stage renal failure on dialysis; Z99.2 - Dependence on renal dialysis Status: Chronic Plan: He is on hemodialysis MWF Chest x-ray was clear VQ scan is low probability follows with Dr. Richardson Staying for chest wound s/p debridement with Plastic surgery HD TODAY DC from our point of view (2) Hypertension, accelerated ICD Codes: I10 - Hypertension, accelerated Status: Chronic Plan: Blood pressure is labile followed blood pressure after dialysis (3) Diabetes ICD Codes: E11.9 - Diabetes mellitus Status: Chronic Plan: Continue to monitor Problem Qualifiers (1) Diabetes: Andi Roth MD Feb 21, 2017 13:06
--- NOTE | 2017-02-21 13:29 | HHI.FF ---
Face to Face Verification Diagnosis: (1) Hydradenitis (2) Skin infection, bacterial Home Health Nursing Order: Signs/symptoms of disease process Wound care and dressing changes Instructions: Daily dressing change with BETADINE-SOAKED 4X4 ONCE A DAY I have seen patient Maurice Jimenez on 02/21/17. My clinical findings support the need for the requested home health care services because: Deconditioned w/ increased weakness I certify that my clinical findings support that this patient is homebound because: Poor cardiac reserve Aiden Chase MD Feb 21, 2017 13:29
--- NOTE | 2017-02-21 13:32 | HHI.DS ---
Discharge Summary Admission Date Feb 16, 2017 at 08:24 Discharge Date: Feb 21, 2017 Admitting Diagnosis cp r/o UT, skin infection (1) Chest pain ICD Code: R07.9 - Chest pain Status: Resolved (2) Elevated troponin ICD Code: R79.89 - Other specified abnormal findings of blood chemistry Status: Chronic (3) ESRD (end stage renal disease) on dialysis ICD Code: N18.6 - End stage renal failure on dialysis; Z99.2 - Dependence on renal dialysis Status: Chronic (4) Skin infection, bacterial ICD Code: L08.9 - Local infection of the skin and subcutaneous tissue, unspecified; B96.89 - Other specified bacterial agents as the cause of diseases classified elsewhere Status: Acute (5) DM (diabetes mellitus) ICD Code: E11.9 - Type 2 diabetes mellitus without complications Status: Chronic Procedures 02/16/17 1. Excision above areas right #1 four areas on the chest mainly on the right side. 2. One area on the left axilla anterior axillary fold 4 x 3 cm excision. 3. One area on the right buttock gluteal cleft in the upper part 8 x 4 cm excision. Brief History - From Admission This is a 46-year-old male with a PMH of HTN, Hyperlipidemia, DM, Hidradenitis Suppurativa, ESRD on HD M/W/F, Anxiety, Depression and Gastritis and presented to the ER with complaints of chest pain x2 days. States symptoms have been on and off, but worse today. Follows jeffrey Engel as outpatient, reports recent eval and prior Stress Test normal. States he's been on antibiotic for chest wall hidradenitis x1 wk but cannot recall name of antibiotic. On arrival, BP 170/79, HR 98, O2 sat 96% on RA, Afebrile. WBC normal. Chemistry essentially at baseline. Creatinine 12.0, previously 9.68 on 08/21/16. Lactic Acid normal. Troponin 0.09, EKG with no acute ischemia. INR 1.1. CXR with no acute findings. CBC/BMP: 02/19/17 0458 02/19/17 0458 Significant Findings Laboratory Tests Test 02/19/17 04:58 02/21/17 05:58 White Blood Count 13.4 TH/MM3 (4.0-11.0) Red Blood Count 3.34 MIL/MM3 (4.50-5.90) Hemoglobin 9.4 GM/DL (13.0-17.0) Hematocrit 29.6 % (39.0-51.0) Mean Corpuscular Hemoglobin Concent 31.6 % (32.0-36.0) Red Cell Distribution Width 19.9 % (11.6-17.2) Neutrophils (%) (Auto) 80.5 % (16.0-70.0) Lymphocytes (%) (Auto) 7.6 % (9.0-44.0) Monocytes (%) (Auto) 9.2 % (0.0-8.0) Neutrophils # (Auto) 10.8 TH/MM3 (1.8-7.7) Monocytes # (Auto) 1.2 TH/MM3 (0-0.9) Blood Urea Nitrogen 39 MG/DL (7-18) Creatinine 10.06 MG/DL (0.60-1.30) Albumin 3.2 GM/DL (3.4-5.0) Phosphorus Level 7.8 MG/DL (2.5-4.9) Magnesium Level 2.6 MG/DL (1.5-2.5) Sodium Level 135 MEQ/L (136-145) Chloride Level 95 MEQ/L (98-107) Estimat Glomerular Filtration Rate 7 ML/MIN (>89) Uric Acid 9.2 MG/DL (2.6-7.2) Imaging Last Impressions Lung Scan-VQ Nuclear Medicine 02/14/17 0000 Signed Impressions: Service Date/Time: Tuesday, February 14, 2017 11:49 - CONCLUSION: Low probability scan for pulmonary embolus. Prieto Ramírez MD Chest CT 02/14/17 0000 Signed Impressions: Service Date/Time: Tuesday, February 14, 2017 10:17 - CONCLUSION: Minimal induration in the abdominal wall on the right without bony abnormality No suspicious lung lesions identified Nonspecific mediastinal and axillary adenopathy. Bill Gotti MD FACR Chest X-Ray 02/13/17 2103 Signed Impressions: Service Date/Time: Monday, February 13, 2017 21:08 - CONCLUSION: No evidence of acute cardiopulmonary disease. Casimiro Hair MD PE at Discharge GENERAL: NAD SKIN: Warm and dry. HEAD: Normocephalic. EYES: No scleral icterus. No injection or drainage. NECK: Supple, trachea midline. No JVD or lymphadenopathy. CARDIOVASCULAR: Regular rate and rhythm without murmurs, gallops, or rubs. RESPIRATORY: Breath sounds equal bilaterally. No accessory muscle use. Dressing over the area of incision GASTROINTESTINAL: Abdomen soft, non-tender, nondistended. MUSCULOSKELETAL: No cyanosis, or edema. Swelling left fifth finger BACK: Nontender without obvious deformity. No CVA tenderness. Hospital Course Chest Wall Infection, Failed Outpatient: secondary to Hidradenitis He was treated with oral clindamycin for ID Appreciate plastic surgery assistance. Atypical Chest Pain and Dyspnea-resolved He was treated with ASA, Statin, B-herman, Morphine prn by cardiology was consulted. Acute blood loss anemia. status post 2 units of blood on 02/18 for operative blood loss. ESRD on HD: M/W/F. nephrology was consulted and patient received hemodialysis in-house Cinacalcet and sevelamer were resumed Hypertension He remained normotensive on losartan, nifedipine, carvedilol, hydralazine, Imdur Clonidine as needed DM: Sliding scale w/ Accu-Cheks. Gout disease He was started on prednisone DVT Prophylaxis: Heparin sq Pt Condition on Discharge: Stable Discharge Disposition: Disch w/ Home Health Serv Discharge Time: > 30 minutes Discharge Instructions DIET: Follow Instructions for: Diabetic Diet Activities you can perform: Regular-No Restrictions Follow up Referrals: Nephrology PCP Follow-up - 1 Week Plastic Surgery - 3-5 Days New Medications: Losartan (Cozaar) 50 Mg Tab 50 MG PO HS for Blood Pressure Management, #30 TAB 3 Refills Pravastatin (Pravachol) 40 Mg Tab 40 MG PO DAILY for Cholesterol Management, #30 TAB 3 Refills Continued Medications: Carvedilol (Carvedilol) 12.5 Mg Tab 12.5 MG PO BID, #60 TAB 0 Refills Cinacalcet (Sensipar) 30 Mg Tab 30 MG PO DAILY, #30 TAB 0 Refills Clindamycin (Clindamycin) 150 Mg Cap 150 MG PO Q6H for Infection, CAP 0 Refills Clonidine (Clonidine) 0.1 Mg Tab 0.1 MG PO Q6HR PRN for SYS BP GREATER THAN 160 MMHG, #60 TAB 0 Refills Doxepin (Doxepin) 150 Mg Cap 300 MG PO DAILY, #30 CAP 0 Refills Hydralazine (Hydralazine) 100 Mg Tab 50 MG PO TID for Blood Pressure Management, TAB 0 Refills Take with meals Insulin Glargine Inj (Lantus Inj) 1,000 Unit/10 Ml Vial 1 UNITS SQ PRN for Blood Sugar Management, VIAL 0 Refills Insulin Human Isophane-Regular 70-30 Inj (Novolin 70-30 Inj) 1,000 Unit/10 Ml Vial 1 UNITS SQ for Blood Sugar Management, ML 0 Refills Isosorbide Mononitrate (Isosorbide Mononitrate) 20 Mg Tab 20 MG PO BID for Prevent Chest Pain, #60 TAB 0 Refills Take 2 doses 7 hours apart. Mirtazapine (Mirtazapine) 15 Mg Tab 15 MG PO HS for sleep, #30 TAB Dysgbwpa-Rirmukvzpj-Iknrimhht Topical (Vnxcnijr-Rxdxepyrga-Xalkgiwuw Topical) 1 Application Oint 1 APPLIC TOPICAL Q4H for Infection, #1 TUBE 0 Refills Nifedipine (Nifedipine) 20 Mg Cap 20 MG PO Q8HR for Blood Pressure Management, #90 CAP Omeprazole (Omeprazole) 40 Mg Cap 40 MG PO DAILY, #30 CAP 0 Refills Prednisone (Prednisone) 20 Mg Tab 20 MG PO DAILY, TAB 0 Refills Sevelamer Carbonate (Renvela) 800 Mg Tab 1600 MG PO TIDAC for Electrolyte Replacement, #90 TAB Vitamin B Cmplx/Vit C/Folic AC (Nephro-Adan Rx) 1 Tab 1 TAB PO, TAB Discontinued Medications: Amoxicillin (Amoxicillin) 500 Mg Tab 500 MG PO BID for Infection, TAB 0 Refills Erythromycin Base (Erythromycin Base) 250 Mg Tab 250 MG PO TIDAC for Infection, #60 TAB 0 Refills Losartan (Losartan) 100 Mg Tab 100 MG PO HS for Blood Pressure Management, #30 TAB 0 Refills Rifampin (Rifampin) 300 Mg Cap 300 MG PO DAILY for Infection, CAP 0 Refills Additional Information Patient needs to follow-up with Dr. Ca, [place] for suture removal 02/25/17 Aiden Chase MD Feb 21, 2017 13:31
== END 2017-02-21 18:42 | disposition home health service (06) | DRG 570 ==
LOC: NEPE 20:08 → NEDA 23:30 → NEPGCP 02-14 01:55 → OBSVTOIN 02-16 08:24 → N07A 02-17 01:24
PROVIDERS: ADMIT Hospitalist; ATTEND Hospitalist
PROC: 0HB5XZZ Excision of Chest Skin, External Approach (ICD-10-PCS; 2017-02-16)
PROC: 0HB5XZZ Excision of Chest Skin, External Approach (ICD-10-PCS; 2017-02-16)
PROC: 0HB5XZZ Excision of Chest Skin, External Approach (ICD-10-PCS; 2017-02-16)
PROC: 0HBCXZZ Excision of Left Upper Arm Skin, External Approach (ICD-10-PCS; 2017-02-16)
PROC: 0HB8XZZ Excision of Buttock Skin, External Approach (ICD-10-PCS; 2017-02-16)
PROC: 0H95XZZ Drainage of Chest Skin, External Approach (ICD-10-PCS; 2017-02-16)
PROC: 0HB5XZZ Excision of Chest Skin, External Approach (ICD-10-PCS; principal; 2017-02-16 13:32)
DX: L73.2 Hidradenitis suppurativa (principal); N18.6 End stage renal disease; E11.22 Type 2 diabetes mellitus with diabetic chronic kidney disease; I12.0 Hypertensive chronic kidney disease with stage 5 chronic kidney disease or end stage renal disease; D62 Acute posthemorrhagic anemia; L76.32 Postprocedural hematoma of skin and subcutaneous tissue following other procedure; E11.43 Type 2 diabetes mellitus with diabetic autonomic (poly)neuropathy; K31.84 Gastroparesis; Y83.8 Other surgical procedures as the cause of abnormal reaction of the patient, or of later complication, without mention of misadventure at the time of the procedure; E78.5 Hyperlipidemia, unspecified; E87.6 Hypokalemia; G47.33 Obstructive sleep apnea (adult) (pediatric); Z99.2 Dependence on renal dialysis; K21.9 Gastro-esophageal reflux disease without esophagitis; M10.9 Gout, unspecified; L08.9 Local infection of the skin and subcutaneous tissue, unspecified
CPT/HCPCS: 36430; 71010; 71250; 78582; 80048; 80053; 80069; 82550; 82552; 82948; 83605; 83690; 83735; 83880; 84484; 84550; 85025; 85610; 85730; 86403; 86850; 86900; 86901; 86920; 87015; 87040; 87070; 87077; 87102; 87116; 87186; 87205; 87206; 90935; 93005; 94150; 94667; 94668; 96365; 96372; 96374; 96375; 96376; A9540; A9567; G0257; G0378; J0171; J0690; J0780; J1644; J1815; J2250; J2270; J2405; J2543; J2710; J3010; J3370; J7050; P9016; P9047; Q4081

== ENCOUNTER 2017-03-29 02:31 | Inpatient (IN) | payer MEDICARE, OTHER ==
[~2017-03-29] VITALS: Ht 175.3 cm; Wt 82.0 kg
[2017-03-29] VITALS (9 sets, daily range): BP systolic 114–195; BP diastolic 64–84; PULSE 90–107; RESP 16–20; TEMP 97.8–99.2; O2SAT 93–99
[~2017-03-29 02:31] MED LIST changes: +AMLO5TAB2 PO; +BACIOIN13 TOPICAL; -BUTATAB6 PO; +CINA30 PO; +CLIN1CAP5 PO; +COZA50TA PO; +DOXE150C7 PO; -ERYT250T13 PO; -FINA5TAB2 PO; +HYDR-3801 PO; -HYDR50TA15 PO; +ISOS20TA PO; +LANTUS2P SQ; -LOSA100T PO; -METR-1 PO; +OMEP40CA2 PO; +PRAV40TA PO; +PRED20 PO; -ZOFR4TAB3 SL
[2017-03-29] MEDS ORDERED: CIPROFLOXACIN 400 MG PREMIX 200 ML IV ONE (03:00)
[2017-03-29] MEDS ORDERED: cefTRIAXone INJ 2,000 MG in SODIUM CHLORIDE 0.9% INJ 100 ML IV ONE (03:00)
[2017-03-29] MEDS ORDERED: VANCOMYCIN INJ 1,500 MG in SODIUM CHLORID 0.9% 500 ML INJ 500 ML IV ONE (03:00)
--- NOTE | 2017-03-29 03:09 | PD ---
HPI Chief Complaint: Injury Time Seen by Provider: 02:44 Travel History International Travel<30 days: No Contact w/Intl Traveler<30days: No Traveled to known affect area: No History of Present Illness HPI 46 yo M c/o pain and swelling in the L pinky finger for approx 4 days. Pain constant. Pain is severe with movement. Onset gradual. Pt ESRD with AV fistula L arm. + Subjective fever. Pt denies recent injury involving LUE. Positive radiation to distal L forearm. PFSH Past Medical History Anemia: Yes Arthritis: No Autoimmune Disease: No Blood Disorders: No Anxiety: Yes Depression: Yes Heart Rhythm Problems: Yes (TACHYCARDIA) Cancer: No Cardiac Catheterization: No Cardiovascular Problems: Yes High Cholesterol: No Chemotherapy: No Chest Pain: Yes Congestive Heart Failure: No COPD: No Cerebrovascular Accident: No Diabetes: Yes Patient Takes Glucophage: No Dialysis: Yes () Diminished Hearing: No Endocrine: Yes Gastrointestinal Disorders: Yes (GASTROPARESIS) GERD: No Glaucoma: No Genitourinary: Yes Headaches: Yes Hepatitis: No Hiatal Hernia: No Hypertension: Yes Immune Disorder: No Implanted Vascular Access Dvce: Yes (PORT) Kidney Stones: No Medical other: Yes (ANEMIA gastro-paresis, SICKLE CELL TRAIT) Musculoskeletal: Yes Neurologic: Yes (NEUROPATHY IN LEGS) Psychiatric: Yes Reproductive: No Respiratory: No Immunizations Current: Yes Myocardial Infarction: No Radiation Therapy: No Renal Failure: Yes Seizures: Yes Sickle Cell Disease: Yes (PT STATES HE HAS THE "TRAIT") Sleep Apnea: No Thyroid Disease: No Ulcer: No Tetanus Vaccination: < 5 Years Influenza Vaccination: No PNEUMOCCOCAL Vaccine (Year): 1 Past Surgical History Abdominal Surgery: Yes (multiple surgeries due to poor sweat glands) AICD: No Arteriovenous Shunt: Yes (LEFT UPPER ARM FISTULA) Body Medical Devices: left arm fistula; right chest port TENCHKOFF Cardiac Surgery: No Coronary Artery Bypass Graft: No Ear Surgery: No Endocrine Surgery: No Eye Surgery: No Genitourinary Surgery: Yes (TENKCHOFF TUBE FOR PD ) Gynecologic Surgery: No Insulin Pump: No Joint Replacement: No Oral Surgery: No Pacemaker: No Thoracic Surgery: No Other Surgery: Yes (FISTULA UPPER LEFT ARM, ABSCESSES REMOVAL) Social History Alcohol Use: No Tobacco Use: No Substance Use: No Allergies-Medications (Allergen,Severity, Reaction): Coded Allergies: Fish Containing Products (Verified Allergy, Severe, SWELLING-CANT BREATH- HIVES, 03/29/17) diatrizoate meglumine (Verified Allergy, Severe, nausea/vomiting, 03/29/17 ) causes n/v HAD TEST TODAY 11/15/11 TOOK BENADRYL AND DID OK. gadobenic acid (Verified Allergy, Severe, nausea/vomiting, 03/29/17) causes n/v HAD TEST TODAY 11/15/11 TOOK BENADRYL AND DID OK. gadodiamide (Verified Allergy, Severe, nausea/vomiting, 03/29/17) causes n/v HAD TEST TODAY 11/15/11 TOOK BENADRYL AND DID OK. gadoteridol (Verified Allergy, Severe, nausea/vomiting, 03/29/17) causes n/v HAD TEST TODAY 11/15/11 TOOK BENADRYL AND DID OK. iodixanol (Verified Allergy, Severe, nausea/vomiting, 03/29/17) causes n/v HAD TEST TODAY 11/15/11 TOOK BENADRYL AND DID OK. iohexol (Verified Allergy, Severe, nausea/vomiting, 03/29/17) causes n/v HAD TEST TODAY 11/15/11 TOOK BENADRYL AND DID OK. metoclopramide (Verified Allergy, Severe, ANXIETY, 03/29/17) sumatriptan (Verified Allergy, Severe, AGITATION/CAUSED BREAK OUT, ) Reported Meds & Prescriptions Reported Meds & Active Scripts Active Cozaar (Losartan Potassium) 50 Mg Tab 50 Mg PO HS Pravachol (Pravastatin) 40 Mg Tab 40 Mg PO DAILY Mirtazapine 15 Mg Tab 15 Mg PO HS Renvela (Sevelamer Carbonate) 800 Mg Tab 1,600 Mg PO TIDAC Clonidine (Clonidine HCl) 0.1 Mg Tab 0.1 Mg PO Q6HR PRN Nifedipine 20 Mg Cap 20 Mg PO Q8HR Oxygen tank (Oxygen) 1 Ea Tank 2 Liter MICHAEL.CANULA CONTINUOUS Oxygen Concentrator Portable Gaseous 2 L/min via Nasal Cannula Continuous For 99 months Reported Sensipar (Cinacalcet) 30 Mg Tab 30 Mg PO DAILY Fuvebgyp-Dsuzcgsdoq-Crhcolygg Topical 1 Application Oint 1 Applic TOPICAL Q4H Clindamycin (Clindamycin HCl) 150 Mg Cap 150 Mg PO Q6H Amlodipine (Amlodipine Besylate) 5 Mg Tab 5 Mg PO DAILY Prednisone 20 Mg Tab 20 Mg PO DAILY Omeprazole 40 Mg Cap 40 Mg PO DAILY Isosorbide Mononitrate 20 Mg Tab 20 Mg PO BID Take 2 doses 7 hours apart. Lantus Inj (Insulin Glargine) 1,000 Unit/10 Ml Vial 1 Units SQ PRN Doxepin (Doxepin HCl) 150 Mg Cap 300 Mg PO DAILY Hydralazine (Hydralazine HCl) 100 Mg Tab 50 Mg PO TID Take with meals Nephro-Adan Rx (Vitamin B Cmplx/Vit C/Folic AC) 1 Tab 1 Tab PO Novolin 70-30 Inj (Insulin Human Isoph/Insulin Regular) 1,000 Unit/10 Ml Vial 1 Units SQ Carvedilol 12.5 Mg Tab 12.5 Mg PO BID Calcium Acetate (Calcium Acetate (Phosphate Bin) 667 Mg Cap Review of Systems Except as stated in HPI: all other systems reviewed are Neg General / Constitutional: No: Fever, Chills Physical Exam Narrative GENERAL: 46 yo M, WNWD, NAD SKIN: Warm and dry. HEAD: Atraumatic. Normocephalic. EYES: Pupils equal and round. No scleral icterus. No injection or drainage. ENT: No nasal bleeding or discharge. Mucous membranes pink and moist. NECK: Trachea midline. No JVD. CARDIOVASCULAR: Regular rate and rhythm. RESPIRATORY: No accessory muscle use. Clear to auscultation. Breath sounds equal bilaterally. GASTROINTESTINAL: Abdomen soft, non-tender, nondistended. Hepatic and splenic margins not palpable. MUSCULOSKELETAL:Symmetric swelling L 5th digit, passive flexion, severe pain with passive ROM at DIP, severe pain with active ROM in any direction, no skin injury/opening NEUROLOGICAL: Awake and alert. No obvious cranial nerve deficits. Motor grossly within normal limits. Five out of 5 muscle strength in the arms and legs. Normal speech. PSYCHIATRIC: Appropriate mood and affect; insight and judgment normal. Data Data Last Documented VS Vital Signs Date Time Temp Pulse Resp B/P (MAP) Pulse Ox O2 Delivery O2 Flow Rate FiO2 03/29/17 03:41 18 98 Room Air 03/29/17 02:33 99.2 107 VS reivewed Orders Orders Complete Blood Count With Diff (03/29/17 02:57) Comprehensive Metabolic Panel (03/29/17 02:57) Lactic Acid Sepsis Protocol (03/29/17 02:57) Blood Culture (03/29/17 02:57) Ecg Monitoring (03/29/17 02:57) Iv Access Insert/Monitor (03/29/17 02:57) Oximetry (03/29/17 02:57) Vancomycin Inj (Vancomycin Inj) (03/29/17 03:00) Ciprofloxacin 400 Mg Premix (Cipro 400 M (03/29/17 03:00) Ceftriaxone Inj (Rocephin Inj) (03/29/17 03:00) Hand, Complete (Qvg1tkp) (03/29/17 ) Morphine Inj (Morphine Inj) (03/29/17 03:45) Ondansetron Inj (Zofran Inj) (03/29/17 03:45) Admit Order (Ed Use Only) (03/29/17 ) Vital Signs (Adult) Q4H (03/29/17 04:24) Diet Npo (03/29/17 Breakfast) Activity Oob With Assistance (03/29/17 04:24) Vancomycin Consult Pharmacy (Vancomycin (03/29/17 04:30) Piperacil-Tazo 3.375 Gm Premix (Zosyn 3. (03/29/17 06:00) Consult Nephrology (03/29/17 ) Insulin Aspart Supplemtl Scale (Novolog (03/29/17 08:00) Labs Laboratory Tests Test 03/29/17 03:27 White Blood Count 11.0 TH/MM3 Red Blood Count 3.50 MIL/MM3 Hemoglobin 9.9 GM/DL Hematocrit 30.7 % Mean Corpuscular Volume 87.6 FL Mean Corpuscular Hemoglobin 28.4 PG Mean Corpuscular Hemoglobin Concent 32.4 % Red Cell Distribution Width 21.0 % Platelet Count 416 TH/MM3 Mean Platelet Volume 7.0 FL Neutrophils (%) (Auto) 78.1 % Lymphocytes (%) (Auto) 9.9 % Monocytes (%) (Auto) 8.6 % Eosinophils (%) (Auto) 2.9 % Basophils (%) (Auto) 0.5 % Neutrophils # (Auto) 8.6 TH/MM3 Lymphocytes # (Auto) 1.1 TH/MM3 Monocytes # (Auto) 0.9 TH/MM3 Eosinophils # (Auto) 0.3 TH/MM3 Basophils # (Auto) 0.1 TH/MM3 CBC Comment DIFF FINAL Differential Comment Blood Urea Nitrogen 43 MG/DL Creatinine 7.29 MG/DL Random Glucose 181 MG/DL Total Protein 8.8 GM/DL Albumin 3.1 GM/DL Calcium Level 9.4 MG/DL Alkaline Phosphatase 127 U/L Aspartate Amino Transf (AST/SGOT) 11 U/L Alanine Aminotransferase (ALT/SGPT) 15 U/L Total Bilirubin 0.3 MG/DL Sodium Level 136 MEQ/L Potassium Level 4.9 MEQ/L Chloride Level 96 MEQ/L Carbon Dioxide Level 27.1 MEQ/L Anion Gap 13 MEQ/L Estimat Glomerular Filtration Rate 10 ML/MIN Lactic Acid Level 1.5 mmol/L MDM Medical Decision Making Medical Screen Exam Complete: Yes Emergency Medical Condition: Yes Medical Record Reviewed: Yes Differential Diagnosis infectious tenosynovitis, abscess, cellulitis Narrative Course CBC & BMP Diagram 03/29/17 03:27 Total Protein 8.8 H, Albumin 3.1 L, Calcium Level 9.4, Alkaline Phosphatase 127 H, Aspartate Amino Transf (AST/SGOT) 11 L, Alanine Aminotransferase (ALT/SGPT) 15, Total Bilirubin 0.3 Last 24 hours Impressions Hand X-Ray 03/29/17 0000 Signed Impressions: Service Date/Time: Wednesday, March 29, 2017 03:10 - CONCLUSION: Appearance is worrisome for osteomyelitis involving the distal aspect of the fifth finger proximal phalanx Casimiro Velasquez MD Vancomycin, Rocephin, Cipro started shortly following arrival d/w Dr Ramirez for hand surgery d/w Dr Bates for [facility] pain controlled with 6 mg morphine pt undergoes HD via LUE AV fistula raising concern as the source of infection at hand Diagnosis Primary Impression: Other infective (teno)synovitis, left hand Admitting Information Admitting Physician Requests: Admit Kashmir Bruner MD Mar 29, 2017 03:09
[2017-03-29 03:39] LABS: AUTOMATED NEUTROPHIL # 8.6 TH/MM3 (1.8-7.7); BASOPHIL # 0.1 TH/MM3 (0-0.2); BASOPHIL % 0.5 % (0.0-2.0); EOSINOPHIL # 0.3 TH/MM3 (0-0.4); EOSINOPHIL % 2.9 % (0.0-4.0); HEMATOCRIT 30.7 % (39.0-51.0); HEMOGLOBIN 9.9 GM/DL (13.0-17.0); LYMPH % 9.9 % (9.0-44.0); LYMPHOCYTE # 1.1 TH/MM3 (1.0-4.8); MEAN CELL VOLUME 87.6 FL (80.0-100.0); MEAN CORPUSCULAR HEMOGLOBIN 28.4 PG (27.0-34.0); MEAN CORPUSCULAR HGB CONC 32.4 % (32.0-36.0); MONO % 8.6 % (0.0-8.0); MONOCYTE # 0.9 TH/MM3 (0-0.9); NEUT % 78.1 % (16.0-70.0); PLATELET COUNT 416 TH/MM3 (150-450)
[2017-03-29] MEDS ORDERED: MORPHINE SULFATE 8 MG/ML INJ IV PUSH ONE ×2 (03:45→04:45)
[2017-03-29] MEDS ORDERED: ONDANSETRON HCL 4 MG/2 ML VIAL IV PUSH ONE (03:45)
--- NOTE | 2017-03-29 03:56 | RADRPT ---
EXAM DATE/TIME: 03/29/2017 03:10 [place] COMPARISON: No previous studies available for comparison. INDICATIONS : Hand swelling, 5th digit increased swelling. MEDICAL HISTORY : None. SURGICAL HISTORY : None. ENCOUNTER: Initial ACUITY: 1 day PAIN SCORE: 0/10 LOCATION: Left hand FINDINGS: There is cortical indistinctness and periosteal reaction adjacent to the ulnar aspect of the fifth fi nger proximal phalanx at the level of the distal metaphysis. There is prominent diffuse soft tissue s welling involving the fifth finger. The articulations appear grossly intact. There is no evidence of fracture. CONCLUSION: Appearance is worrisome for osteomyelitis involving the distal aspect of the fifth finger proximal ph alanx Casimiro Velasquez MD on March 29, 2017 at 3:52 Board Certified Radiologist. This report was verified electronically.
[2017-03-29 04:11] LABS: ALBUMIN 3.1 GM/DL (3.4-5.0); ALT (GPT) 15 U/L (12-78); AST (GOT) 11 U/L (15-37); BICARBONATE 27.1 MEQ/L (21.0-32.0); BLOOD UREA NITROGEN 43 MG/DL (7-18); CALCIUM 9.4 MG/DL (8.5-10.1); CHLORIDE 96 MEQ/L (98-107); CREATININE 7.29 MG/DL (0.60-1.30); GLOMERULAR FILTRATION RATE 10 ML/MIN (>89); GLUCOSE,RANDOM 181 MG/DL (74-106); SODIUM (NA) 136 MEQ/L (136-145)
[2017-03-29 04:13] LABS: ALKALINE PHOSPHATASE 127 U/L (45-117); TOTAL BILIRUBIN ADULT 0.3 MG/DL (0.2-1.0); TOTAL PROTEIN 8.8 GM/DL (6.4-8.2)
[2017-03-29] MEDS ORDERED: SENNOSIDES 8.6 MG TAB PO PRN (04:30)
[2017-03-29] MEDS ORDERED: BISACODYL 10 MG SUPP RECTAL PRN (04:30)
[2017-03-29] MEDS ORDERED: SODIUM CHLORIDE 0.9% FLUSH 10 ML FLUSH IV FLUSH PRN ×2 (04:30→07:30)
[2017-03-29] MEDS ORDERED: LACTULOSE SYRUP 20 GM/30 ML CUP PO PRN (04:30)
[2017-03-29] MEDS ORDERED: MAGNESIUM HYDROXIDE SUSP 30 ML CUP PO PRN (04:30)
[2017-03-29] MEDS ORDERED: Vancomycin Consult Pharmacy 1 EA OTHER SCH (04:30)
[2017-03-29] MEDS ORDERED: NALOXONE HCL 0.4 MG/ML AMP IV PUSH PRN (04:30)
--- NOTE | 2017-03-29 04:39 | HHI.HP ---
[facility] Service [place] [facility] Primary Care Physician Non-Staff Admission Diagnosis Infectious Tenosynovitis Diagnoses: Chief Complaint: left pinky pain and swelling Travel History International Travel<30 Days: No Contact w/Intl Traveler <30 Da: No Traveled to Known Affected Are: No History of Present Illness Written by BRENT Jenkins acting as scribe for Dr. De Souza] on 03/29/17 at 04:33. 46 y/o male with a history of HTN, Hyperlipidemia, DM, Hidradenitis Suppurativa , ESRD on HD //, Anxiety, Depression and Gastritis presented to the ED with complaints of pain in his left pinky finger. He states on Tuesday his pinky began to have pain and by Tuesday it was swollen. He states the pain is sharp, intermittent in left pinky finger with radiation to wrist with associated fever , chills, loose stools, nausea and vomiting. He states on Tuesday fever was 101 at home, Tuesday 99 when checked by home health. Denies any chest pain, or sob. Past Family Social History Past Medical History HTN Hyperlipidemia DM Hidradenitis Suppurativa ESRD on HD // Anxiety Depression Gastritis Past Surgical History LUE AV Fistula Reported Medications Reported Meds & Active Scripts Active Cozaar (Losartan Potassium) 50 Mg Tab 50 Mg PO HS Pravachol (Pravastatin) 40 Mg Tab 40 Mg PO DAILY Mirtazapine 15 Mg Tab 15 Mg PO HS Renvela (Sevelamer Carbonate) 800 Mg Tab 1,600 Mg PO TIDAC Clonidine (Clonidine HCl) 0.1 Mg Tab 0.1 Mg PO Q6HR PRN Nifedipine 20 Mg Cap 20 Mg PO Q8HR Oxygen tank (Oxygen) 1 Ea Tank 2 Liter MICHAEL.CANULA CONTINUOUS Oxygen Concentrator Portable Gaseous 2 L/min via Nasal Cannula Continuous For 99 months Reported Sensipar (Cinacalcet) 30 Mg Tab 30 Mg PO DAILY Miqtzgkj-Sbhdhhghah-Xgycrcnaq Topical 1 Application Oint 1 Applic TOPICAL Q4H Clindamycin (Clindamycin HCl) 150 Mg Cap 150 Mg PO Q6H Amlodipine (Amlodipine Besylate) 5 Mg Tab 5 Mg PO DAILY Prednisone 20 Mg Tab 20 Mg PO DAILY Omeprazole 40 Mg Cap 40 Mg PO DAILY Isosorbide Mononitrate 20 Mg Tab 20 Mg PO BID Take 2 doses 7 hours apart. Lantus Inj (Insulin Glargine) 1,000 Unit/10 Ml Vial 1 Units SQ PRN Doxepin (Doxepin HCl) 150 Mg Cap 300 Mg PO DAILY Hydralazine (Hydralazine HCl) 100 Mg Tab 50 Mg PO TID Take with meals Nephro-Adan Rx (Vitamin B Cmplx/Vit C/Folic AC) 1 Tab 1 Tab PO Novolin 70-30 Inj (Insulin Human Isoph/Insulin Regular) 1,000 Unit/10 Ml Vial 1 Units SQ Carvedilol 12.5 Mg Tab 12.5 Mg PO BID Calcium Acetate (Calcium Acetate (Phosphate Bin) 667 Mg Cap Allergies: Coded Allergies: Fish Containing Products (Verified Allergy, Severe, SWELLING-CANT BREATH- HIVES, 03/29/17) diatrizoate meglumine (Verified Allergy, Severe, nausea/vomiting, 03/29/17 ) causes n/v HAD TEST TODAY 11/15/11 TOOK BENADRYL AND DID OK. gadobenic acid (Verified Allergy, Severe, nausea/vomiting, 03/29/17) causes n/v HAD TEST TODAY 11/15/11 TOOK BENADRYL AND DID OK. gadodiamide (Verified Allergy, Severe, nausea/vomiting, 03/29/17) causes n/v HAD TEST TODAY 11/15/11 TOOK BENADRYL AND DID OK. gadoteridol (Verified Allergy, Severe, nausea/vomiting, 03/29/17) causes n/v HAD TEST TODAY 11/15/11 TOOK BENADRYL AND DID OK. iodixanol (Verified Allergy, Severe, nausea/vomiting, 03/29/17) causes n/v HAD TEST TODAY 11/15/11 TOOK BENADRYL AND DID OK. iohexol (Verified Allergy, Severe, nausea/vomiting, 03/29/17) causes n/v HAD TEST TODAY 11/15/11 TOOK BENADRYL AND DID OK. metoclopramide (Verified Allergy, Severe, ANXIETY, 03/29/17) sumatriptan (Verified Allergy, Severe, AGITATION/CAUSED BREAK OUT, ) Active Ordered Medications Current Medications Medications (Trade) Dose Ordered Sig/Bulmaro Route Start Time Stop Time Status Last Admin Vancomycin HCl 1500 mg/Sodium Chloride 515 ml @ 257.5 mls/ hr ONCE ONCE IV 03/29/17 03:00 03/29/17 04:59 Pharmacy Profile Note 0 ml @ 0 mls/hr UNSCH OTHER 03/29/17 04:30 Piperacillin Sod/ Tazobactam Sod 50 ml @ 100 mls/hr Q6H IV 03/29/17 06:00 (NovoLOG SUPPLEMENTAL SCALE) 1 ACHS SLIDING SCALE SQ 03/29/17 08:00 (NS Flush) 2 ml UNSCH PRN IV FLUSH 03/29/17 04:30 (NS Flush) 2 ml BID IV FLUSH 03/29/17 09:00 (Zofran Inj) 4 mg Q6H PRN IVP 03/29/17 04:30 (Narcan Inj) 0.4 mg UNSCH PRN IV PUSH 03/29/17 04:30 (Milk Of Magnesia Liq) 30 ml Q12H PRN PO 03/29/17 04:30 (Senokot) 17.2 mg Q12H PRN PO 03/29/17 04:30 (Dulcolax Supp) 10 mg DAILY PRN RECTAL 03/29/17 04:30 (Lactulose Liq) 30 ml DAILY PRN PO 03/29/17 04:30 Family History Patient denies any family history, no heart disease or cancer. Social History Patient denies any tobacco, alcohol or illicit drug use. Physical Exam Vital Signs Vital Signs Date Time Temp Pulse Resp B/P (MAP) Pulse Ox O2 Delivery O2 Flow Rate FiO2 03/29/17 03:41 18 98 Room Air 03/29/17 02:33 99.2 107 16 136/80 (98) 98 Room Air Physical Exam GENERAL: This is a well-nourished, well-developed patient, in no apparent distress. SKIN: Left pinky with edema, Hidradenitis to mid upper abdomen and right lower back, healing HEAD: Atraumatic. Normocephalic. EYES: Pupils equal round and reactive. Extraocular motions intact. No scleral icterus. No injection or drainage. ENT: Nose without bleeding, purulent drainage or septal hematoma. Airway patent. NECK: Trachea midline. No JVD or lymphadenopathy. Supple, nontender, no meningeal signs. CARDIOVASCULAR: Regular rate and rhythm without murmurs, gallops, or rubs. RESPIRATORY: Clear to auscultation. Breath sounds equal bilaterally. No wheezes , rales, or rhonchi. GASTROINTESTINAL: Abdomen soft, non-tender, nondistended. No hepato-splenomegaly , or palpable masses. No guarding. MUSCULOSKELETAL: Extremities without clubbing, cyanosis, or edema. No joint tenderness, effusion, or edema noted. No calf tenderness. NEUROLOGICAL: Awake and alert. Motor and sensory grossly within normal limits. Normal speech. Laboratory Laboratory Tests Test 03/29/17 03:27 White Blood Count 11.0 Red Blood Count 3.50 Hemoglobin 9.9 Hematocrit 30.7 Mean Corpuscular Volume 87.6 Mean Corpuscular Hemoglobin 28.4 Mean Corpuscular Hemoglobin Concent 32.4 Red Cell Distribution Width 21.0 Platelet Count 416 Mean Platelet Volume 7.0 Neutrophils (%) (Auto) 78.1 Lymphocytes (%) (Auto) 9.9 Monocytes (%) (Auto) 8.6 Eosinophils (%) (Auto) 2.9 Basophils (%) (Auto) 0.5 Neutrophils # (Auto) 8.6 Lymphocytes # (Auto) 1.1 Monocytes # (Auto) 0.9 Eosinophils # (Auto) 0.3 Basophils # (Auto) 0.1 CBC Comment DIFF FINAL Differential Comment Blood Urea Nitrogen 43 Creatinine 7.29 Random Glucose 181 Total Protein 8.8 Albumin 3.1 Calcium Level 9.4 Alkaline Phosphatase 127 Aspartate Amino Transf (AST/SGOT) 11 Alanine Aminotransferase (ALT/SGPT) 15 Total Bilirubin 0.3 Sodium Level 136 Potassium Level 4.9 Chloride Level 96 Carbon Dioxide Level 27.1 Anion Gap 13 Estimat Glomerular Filtration Rate 10 Lactic Acid Level 1.5 Date/Time Source Procedure Growth Status 03/29/17 03:30 Blood Peripheral Aerobic Blood Culture Pending Received 03/29/17 03:30 Blood Peripheral Anaerobic Blood Culture Pending Received Result Diagram: 03/29/17 0327 03/29/17 0327 Imaging Last Impressions Hand X-Ray 03/29/17 0000 Signed Impressions: Service Date/Time: Wednesday, March 29, 2017 03:10 - CONCLUSION: Appearance is worrisome for osteomyelitis involving the distal aspect of the fifth finger proximal phalanx MD Bárbara Funez VTE Risk Assessment Caprini VTE Risk Assessment: Mod/High Risk (score >= 2) Caprini Risk Assessment Model Point Value = 1 Point Value = 2 Point Value = 3 Point Value = 5 Age 41-60 Minor surgery BMI > 25 kg/m2 Swollen legs Varicose veins or History of unexplained or recurrent spontaneous Oral contraceptives or hormone replacement Sepsis (< 1 month) Serious lung disease, including pneumonia (< 1 month) Abnormal pulmonary function Acute myocardial infarction Congestive heart failure (< 1 month) History of inflammatory bowel disease Medical patient at bed rest Age 61-74 Arthroscopic surgery Major open surgery (> 45 min) Laparoscopic surgery (> 45 min) Malignancy Confined to bed (> 72 hours) Immobilizing plaster cast Central venous access Age >= 75 History of VTE Family history of VTE Factor V Leiden Prothrombin [id number] Lupus anticoagulant Anticardiolipin antibodies Elevated serum homocysteine Heparin-induced thrombocytopenia Other congenital or acquired thrombophilia Stroke (< 1 month) Elective arthroplasty Hip, pelvis, or leg fracture Acute spinal cord injury (< 1 month) Prophylaxis Regimen Total Risk Factor Score Risk Level Prophylaxis Regimen 0-1 Low Early ambulation 2 Moderate Order ONE of the following: *Sequential Compression Device (SCD) *Heparin 5000 units SQ BID 3-4 Higher Order ONE of the following medications: *Heparin 5000 units SQ TID *Enoxaparin/Lovenox 40 mg SQ daily (WT < 150 kg, CrCl > 30 mL/min) *Enoxaparin/Lovenox 30 mg SQ daily (WT < 150 kg, CrCl > 10-29 mL/min) *Enoxaparin/Lovenox 30 mg SQ BID (WT < 150 kg, CrCl > 30 mL/min) AND/OR *Sequential Compression Device (SCD) 5 or more Highest Order ONE of the following medications: *Heparin 5000 units SQ TID (Preferred with Epidurals) *Enoxaparin/Lovenox 40 mg SQ daily (WT < 150 kg, CrCl > 30 mL/min) *Enoxaparin/Lovenox 30 mg SQ daily (WT < 150 kg, CrCl > 10-29 mL/min) *Enoxaparin/Lovenox 30 mg SQ BID (WT < 150 kg, CrCl > 30 mL/min) AND *Sequential Compression Device (SCD) Assessment and Plan Problem List: (1) Osteomyelitis ICD Code: M86.9 - Osteomyelitis, unspecified Status: Acute (2) DM (diabetes mellitus) ICD Code: E11.9 - Type 2 diabetes mellitus without complications Status: Chronic (3) ESRD (end stage renal disease) on dialysis ICD Code: N18.6 - End stage renal failure on dialysis; Z99.2 - Dependence on renal dialysis Status: Chronic Assessment and Plan 46 y/o male with a history of HTN, Hyperlipidemia, DM, Hidradenitis Suppurativa , ESRD on HD M/W/F, Anxiety, Depression and Gastritis presented to the ED with complaints of pain in his left pinky finger. Osteomyelitis, left 5th digit Hand x ray reviewed and shows worrisome for osteomyelitis of the fifth finger. -Consult hand surgery -Morphine IV for pain management -IV antibiotics Vanco and Zosyn -NPO ESRD on HD M/W/F , chronic, creatine 7.2 -Consult nephrology DM, chronic -ACCU Checks -Resume home medications when patient is not NPO DVT prophylaxis: SCDs Discussed Condition With Patient and ED physician Physician Certification 2 Midnight Certification Type: Admission for Inpatient Services Order for Inpatient Services The services are ordered in accordance with Medicare regulations or non- Medicare payer requirements, as applicable. In the case of services not specified as inpatient-only, they are appropriately provided as inpatient services in accordance with the 2-midnight benchmark. Estimated LOS (days): 3 days is the estimated time the patient will need to remain in the hospital, assuming treatment plan goals are met and no additional complications. Post-Hospital Plan: Home Notes: This note was transcribed by BRENT Singh. I, Dr. Jaden Bates personally performed the history, physical exam, and medical decision making; and confirmed the accuracy of the information in the transcribed note. Authenticated by Dr. Jaden Bates on 03/29/17 at 06:22. Problem Qualifiers (1) Osteomyelitis: Dorcas Odell Mar 29, 2017 04:39 Jaden Bates MD Mar 29, 2017 06:23
[2017-03-29] MEDS ORDERED: GLUCAGON 1 MG/ML VIAL OTHER PRN (05:00)
[2017-03-29] MEDS ORDERED: DEXTROSE 50% IN WATER 50 ML VIAL(D50) IV PUSH PRN (05:00)
[2017-03-29] MEDS: PIPERACIL-TAZO 3.375 GM PREMIX 50 ML IV SCH ×2 (06:29→11:01)
[2017-03-29] MEDS: MORPHINE SULFATE 4 MG/ML INJ IV PUSH PRN ×5 (06:29→19:58)
[2017-03-29] MEDS ORDERED: SODIUM CHLOR 0.9% 1000 ML INJ 1,000 ML OTHER PRN ×2 (07:16)
[2017-03-29] MEDS ORDERED: SODIUM CHLOR 0.9% 1000 ML INJ 1,000 ML IV PRN (07:16)
[2017-03-29] MEDS ORDERED: ALBUMIN 25% INJ 100 ML IV PRN (07:30)
[2017-03-29] MEDS ORDERED: MANNITOL 12.5 GM/50 ML VIAL IV PRN (07:30)
[2017-03-29] MEDS ORDERED: GENTAMICIN SULFATE (DIALYSIS USE ONLY) 20 MG/2 ML VIAL OTHER PRN (07:30)
[2017-03-29] MEDS ORDERED: diphenhydrAMINE HCL 25 MG CAP PO PRN (07:30)
[2017-03-29] MEDS ORDERED: HEPARIN SODIUM - IV 10,000 UNITS/10 ML VIAL PRN (07:30)
[2017-03-29] MEDS ORDERED: cloNIDine HCL 0.1 MG TAB PO PRN (07:30)
[2017-03-29] MEDS ORDERED: NITROGLYCERIN 0.4 MG SL 25 TABS/BTL SL PRN (07:30)
[2017-03-29] MEDS ORDERED: ACETAMINOPHEN 325 MG TAB PO PRN (07:30)
[2017-03-29] MEDS ORDERED: HEPARIN SODIUM - IV 10,000 UNITS/10 ML VIAL IV FLUSH PRN (07:30)
[2017-03-29] MEDS ORDERED: GELATIN 12 MM/7 MM FOAM TOP PRN (07:30)
[2017-03-29] MEDS: INSULIN ASPART SUPPLEMENTAL SCALE SQ SCH ×4 (08:00→19:59)
[2017-03-29] MEDS: SODIUM CHLORIDE 0.9% FLUSH 10 ML FLUSH IV FLUSH SCH ×2 (09:00→19:59)
--- NOTE | 2017-03-29 13:00 | PD.CONS ---
HPI Service Nephrology Consult Requested By Dr. Bates Reason for Consult End-stage renal disease Primary Care Physician Non-Staff History of Present Illness Patient is a 46-year-old the male with history of end-stage renal disease, diabetes and hypertension on hemodialysis 3 times a week on Tuesday, day Tuesday he developed pain in the left little finger and this got progressively got worse and was pink and red and he came to emergency he has his dialysis yesterday he follows with Dr. Richardson. Review of Systems Constitutional: COMPLAINS OF: Fatigue Musculoskeletal: COMPLAINS OF: Joint pain, Muscle aches Past Family Social History Allergies: Coded Allergies: Fish Containing Products (Verified Allergy, Severe, SWELLING-CANT BREATH- HIVES, 03/29/17) diatrizoate meglumine (Verified Allergy, Severe, nausea/vomiting, 03/29/17 ) causes n/v HAD TEST TODAY 11/15/11 TOOK BENADRYL AND DID OK. gadobenic acid (Verified Allergy, Severe, nausea/vomiting, 03/29/17) causes n/v HAD TEST TODAY 11/15/11 TOOK BENADRYL AND DID OK. gadodiamide (Verified Allergy, Severe, nausea/vomiting, 03/29/17) causes n/v HAD TEST TODAY 11/15/11 TOOK BENADRYL AND DID OK. gadoteridol (Verified Allergy, Severe, nausea/vomiting, 03/29/17) causes n/v HAD TEST TODAY 11/15/11 TOOK BENADRYL AND DID OK. iodixanol (Verified Allergy, Severe, nausea/vomiting, 03/29/17) causes n/v HAD TEST TODAY 11/15/11 TOOK BENADRYL AND DID OK. iohexol (Verified Allergy, Severe, nausea/vomiting, 03/29/17) causes n/v HAD TEST TODAY 11/15/11 TOOK BENADRYL AND DID OK. metoclopramide (Verified Allergy, Severe, ANXIETY, 03/29/17) sumatriptan (Verified Allergy, Severe, AGITATION/CAUSED BREAK OUT, ) Past Medical History End-stage renal disease Hypertension Hemodialysis History of chest pain Osteoarthritis Anemia Hypoparathyroidism Diabetes. Past Surgical History AV fistula placed Reported Medications Reported Meds & Active Scripts Active Cozaar (Losartan Potassium) 50 Mg Tab 50 Mg PO HS Pravachol (Pravastatin) 40 Mg Tab 40 Mg PO DAILY Mirtazapine 15 Mg Tab 15 Mg PO HS Renvela (Sevelamer Carbonate) 800 Mg Tab 1,600 Mg PO TIDAC Clonidine (Clonidine HCl) 0.1 Mg Tab 0.1 Mg PO Q6HR PRN Nifedipine 20 Mg Cap 20 Mg PO Q8HR Oxygen tank (Oxygen) 1 Ea Tank 2 Liter MICHAEL.CANULA CONTINUOUS Oxygen Concentrator Portable Gaseous 2 L/min via Nasal Cannula Continuous For 99 months Reported Sensipar (Cinacalcet) 30 Mg Tab 30 Mg PO DAILY Ouxyskyk-Mhkuiseudk-Durnpvspe Topical 1 Application Oint 1 Applic TOPICAL Q4H Clindamycin (Clindamycin HCl) 150 Mg Cap 150 Mg PO Q6H Amlodipine (Amlodipine Besylate) 5 Mg Tab 5 Mg PO DAILY Prednisone 20 Mg Tab 20 Mg PO DAILY Omeprazole 40 Mg Cap 40 Mg PO DAILY Isosorbide Mononitrate 20 Mg Tab 20 Mg PO BID Take 2 doses 7 hours apart. Lantus Inj (Insulin Glargine) 1,000 Unit/10 Ml Vial 1 Units SQ PRN Doxepin (Doxepin HCl) 150 Mg Cap 300 Mg PO DAILY Hydralazine (Hydralazine HCl) 100 Mg Tab 50 Mg PO TID Take with meals Nephro-Adan Rx (Vitamin B Cmplx/Vit C/Folic AC) 1 Tab 1 Tab PO Novolin 70-30 Inj (Insulin Human Isoph/Insulin Regular) 1,000 Unit/10 Ml Vial 1 Units SQ Carvedilol 12.5 Mg Tab 12.5 Mg PO BID Calcium Acetate (Calcium Acetate (Phosphate Bin) 667 Mg Cap Active Ordered Medications Current Medications Medications (Trade) Dose Ordered Sig/Bulmaro Route Start Time Stop Time Status Last Admin Pharmacy Profile Note 0 ml @ 0 mls/hr UNSCH OTHER 03/29/17 04:30 Piperacillin Sod/ Tazobactam Sod 50 ml @ 100 mls/hr Q6H IV 03/29/17 06:00 03/29/17 11:01 (NovoLOG SUPPLEMENTAL SCALE) 1 ACHS SLIDING SCALE SQ 03/29/17 08:00 (NS Flush) 2 ml UNSCH PRN IV FLUSH 03/29/17 04:30 (NS Flush) 2 ml BID IV FLUSH 03/29/17 09:00 03/29/17 09:00 (Zofran Inj) 4 mg Q6H PRN IVP 03/29/17 04:30 (Narcan Inj) 0.4 mg UNSCH PRN IV PUSH 03/29/17 04:30 (Milk Of Magnesia Liq) 30 ml Q12H PRN PO 03/29/17 04:30 (Senokot) 17.2 mg Q12H PRN PO 03/29/17 04:30 (Dulcolax Supp) 10 mg DAILY PRN RECTAL 03/29/17 04:30 (Lactulose Liq) 30 ml DAILY PRN PO 03/29/17 04:30 (Morphine Inj) 2 mg Q3H PRN IV PUSH 03/29/17 05:00 (Morphine Inj) 4 mg Q3H PRN IV PUSH 03/29/17 05:00 03/29/17 11:01 (D50w (Vial) Inj) 50 ml UNSCH PRN IV PUSH 03/29/17 05:00 (Glucagon Inj) 1 mg UNSCH PRN OTHER 03/29/17 05:00 Sodium Chloride 1,000 ml @ 0 mls/hr Q0M PRN OTHER 03/29/17 07:16 (Heparin Inj) 8,000 units UNSCH PRN IV FLUSH 03/29/17 07:30 Sodium Chloride 1,000 ml @ 200 mls/hr Q5H PRN IV 03/29/17 07:16 Sodium Chloride 1,000 ml @ 0 mls/hr Q0M PRN OTHER 03/29/17 07:16 (Mannitol Inj) 12.5 gm UNSCH PRN IV 03/29/17 07:30 Albumin Human 100 ml @ 60 mls/hr UNSCH PRN IV 03/29/17 07:30 (NS Flush) 5 ml UNSCH PRN IV FLUSH 03/29/17 07:30 (Heparin Inj) UNSCH PRN .XX 03/29/17 07:30 (Gentamicin (Dialysis) Inj) 20 mg UNSCH PRN OTHER 03/29/17 07:30 (Zofran Inj) 4 mg UNSCH PRN IV PUSH 03/29/17 07:30 (Tylenol) 650 mg UNSCH PRN PO 03/29/17 07:30 (Benadryl) 25 mg UNSCH PRN PO 03/29/17 07:30 (Nitrostat Sl) 0.4 mg UNSCH PRN SL 03/29/17 07:30 (Catapres) 0.1 mg UNSCH PRN PO 03/29/17 07:30 (Epogen Inj) 4,000 units UNSCH PRN IV PUSH 03/29/17 07:30 (Gelfoam 12 Mm/7 Mm Top) 1 foam UNSCH PRN TOP 03/29/17 07:30 Family History Noncontributory Social History Denies chest pain or shortness of breath Physical Exam Vital Signs Vital Signs Date Time Temp Pulse Resp B/P (MAP) Pulse Ox O2 Delivery O2 Flow Rate FiO2 03/29/17 11:41 98.6 90 18 145/67 (93) 96 03/29/17 08:00 98.6 92 18 148/74 (98) 97 03/29/17 05:29 99.0 97 20 138/64 (88) 96 03/29/17 05:05 03/29/17 05:00 103 18 114/64 (81) 98 Room Air 03/29/17 03:41 18 98 Room Air 03/29/17 02:33 99.2 107 16 136/80 (98) 98 Room Air Physical Exam GENERAL: Well-nourished, well-developed patient. SKIN: Warm and dry. HEAD: Normocephalic. EYES: No scleral icterus. No injection or drainage. NECK: Supple, trachea midline. No JVD or lymphadenopathy. CARDIOVASCULAR: Regular rate and rhythm without murmurs, gallops, or rubs. RESPIRATORY: Breath sounds equal bilaterally. No accessory muscle use. GASTROINTESTINAL: Abdomen soft, non-tender, nondistended. EXTREMITIES: No cyanosis, left little finger edema. NEUROLOGICAL: Awake, alert, and oriented x 3. Non-focal. Laboratory Laboratory Tests Test 03/29/17 03:27 White Blood Count 11.0 Red Blood Count 3.50 Hemoglobin 9.9 Hematocrit 30.7 Mean Corpuscular Volume 87.6 Mean Corpuscular Hemoglobin 28.4 Mean Corpuscular Hemoglobin Concent 32.4 Red Cell Distribution Width 21.0 Platelet Count 416 Mean Platelet Volume 7.0 Neutrophils (%) (Auto) 78.1 Lymphocytes (%) (Auto) 9.9 Monocytes (%) (Auto) 8.6 Eosinophils (%) (Auto) 2.9 Basophils (%) (Auto) 0.5 Neutrophils # (Auto) 8.6 Lymphocytes # (Auto) 1.1 Monocytes # (Auto) 0.9 Eosinophils # (Auto) 0.3 Basophils # (Auto) 0.1 CBC Comment DIFF FINAL Differential Comment Blood Urea Nitrogen 43 Creatinine 7.29 Random Glucose 181 Total Protein 8.8 Albumin 3.1 Calcium Level 9.4 Alkaline Phosphatase 127 Aspartate Amino Transf (AST/SGOT) 11 Alanine Aminotransferase (ALT/SGPT) 15 Total Bilirubin 0.3 Sodium Level 136 Potassium Level 4.9 Chloride Level 96 Carbon Dioxide Level 27.1 Anion Gap 13 Estimat Glomerular Filtration Rate 10 Lactic Acid Level 1.5 Date/Time Source Procedure Growth Status 03/29/17 03:30 Blood Peripheral Aerobic Blood Culture Pending Received 03/29/17 03:30 Blood Peripheral Anaerobic Blood Culture Pending Received Result Diagram: 03/29/17 0327 03/29/17 0327 Imaging Last Impressions Hand X-Ray 03/29/17 0000 Signed Impressions: Service Date/Time: Wednesday, March 29, 2017 03:10 - CONCLUSION: Appearance is worrisome for osteomyelitis involving the distal aspect of the fifth finger proximal phalanx Casimiro Velasquez MD Assessment and Plan Problem List: (1) ESRD (end stage renal disease) on dialysis ICD Codes: N18.6 - End stage renal failure on dialysis; Z99.2 - Dependence on renal dialysis Status: Chronic Plan: Hemodialysis will be arranged on Tuesday, Tuesday and Tuesday continue supportive care Had vancomycin load with the 1250 mg And then 1 g with each dialysis Follow cultures (2) Diabetes ICD Codes: E11.9 - Diabetes mellitus Status: Chronic Plan: Continue to monitor (3) Hypertension ICD Codes: I10 - Hypertension Status: Chronic Plan: Blood pressures checks while in the hospital (4) Osteomyelitis ICD Codes: M86.9 - Osteomyelitis, unspecified Status: Acute Plan: Hand surgery consulted on antibiotic Problem Qualifiers (1) Diabetes: (2) Osteomyelitis: Andi Roth MD Mar 29, 2017 13:00
--- NOTE | 2017-03-29 13:32 | MB ---
cc: NATE VALDEZ III, M.D. DATE OF CONSULTATION 03/29/2017 REASON FOR CONSULTATION The patient was awakened twice in the middle of night and for this consult. He is a very friendly 46-year-old gentleman with a four-day history of left fifth finger pain. He does not recall any history of injury to it, it just started swelling and became painful. He came to the emergency room at 2:30 in the morning, was evaluated and admitted. PAST MEDICAL HISTORY 1. He has end stage renal disease with on hemodialysis through a left upper extremity AV fistula. 2. Anemia 3. Anxiety/depression 4. Tachycardia 5. Gastroparesis 6. Sickle cell trait 7. Lower extremity neuropathy 8. Diabetes mellitus 9. Hidradenitis ACTIVE MEDICATIONS 1. Cozaar 2. Pravachol 3. Mirtazapine 4. Renvela 5. Clonidine 6. Nifedipine 7. Oxygen per nasal cannula 8. Sensipar 9. Topical gentamicin, clindamycin 10. Amlodipine 11. Prednisone 20 mg a day 12. Omeprazole 40 mg a day 13. Isosorbide dinitrate 14. Lantus insulin injection 15. Doxepin 16. Hydralazine 17. Nephrovite RX 18. Novolin insulin 19. Carvedilol 20. Calcium acetate ALLERGIES FISH, DIATRIZOATE, MEGLUMINE, GADOBENIC ACID, GADODIAMIDE, GADOTERIDOL, IODIXANOL, IOHEXOL, IV CONTRAST, REGLAN, SUMATRIPTAN AND IMITREX. LABORATORY DATA Reveal a white blood cell count 11,000, hemoglobin 9.9 gm/dl platelet count 416,000. BUN and creatinine 43 and 7.29. X-rays of his left hand performed reveal the appearance for osteomyelitis involving the distal aspect of the fifth finger and the proximal phalanx, but no evidence of any fractures, foreign body or dislocations. PHYSICAL EXAMINATION This is a well-developed, well-nourished male in no apparent distress very pleasant, lying in his bed in his hospital room. He is awake, alert and appropriate x3. VITAL SIGNS: Temperature is 98.6, blood pressure 145/67, heart rate 90, respiratory rate 18, pulse ox 96% on room air. EXTREMITIES: Examination of the left hand reveals a very mildly edematous left fifth finger. There is no fluctuant area anywhere. There is no abscess formation anywhere. There is no concern for septic joint anywhere. All musculotendinous units are intact. There is no induration. There is no evidence of any erythema that I can detect. He does have a bandage on his left upper extremity AV fistula. Range of motion appears to be full and normal in his left upper extremity. IMPRESSION Left fifth finger infection. RECOMMENDATIONS No surgical intervention at this time. I recommend strict elevation so I have ordered the IV pole elevation system from the semiconductor development technician. I also recommend antibiotics and this should hopefully help. He has gentamicin and Zosyn ordered, that actually would be vancomycin. I discussed this with the patient. He is all in favor. MD ETIENNE Gil III/ALIZA /1:06 PM /1:15 PM
[2017-03-29] MEDS: ONDANSETRON HCL 4 MG/2 ML VIAL IVP PRN (14:22)
--- NOTE | 2017-03-29 14:24 | HHI.PR ---
Subjective Remarks Follow up osteomyelitis. Patient is actively vomiting upon my arrival to the room. Reports nausea off and on for the last week. Objective Vitals Vital Signs Date Time Temp Pulse Resp B/P (MAP) Pulse Ox O2 Delivery O2 Flow Rate FiO2 03/29/17 14:02 97 21 03/29/17 11:41 98.6 90 18 145/67 (93) 96 03/29/17 08:00 98.6 92 18 148/74 (98) 97 03/29/17 05:29 99.0 97 20 138/64 (88) 96 03/29/17 05:05 03/29/17 05:00 103 18 114/64 (81) 98 Room Air 03/29/17 03:41 18 98 Room Air 03/29/17 02:33 99.2 107 16 136/80 (98) 98 Room Air I/O 03/28/17 03/28/17 03/28/17 03/29/17 03/29/17 03/29/17 07:00 15:00 23:00 07:00 15:00 23:00 Intake Total 100 ml 500 ml Balance 100 ml 500 ml Intake IV Total 100 ml 500 ml # Voids 0 Result Diagram: 03/29/17 0327 03/29/17 0327 Imaging Last Impressions Hand X-Ray 03/29/17 0000 Signed Impressions: Service Date/Time: Wednesday, March 29, 2017 03:10 - CONCLUSION: Appearance is worrisome for osteomyelitis involving the distal aspect of the fifth finger proximal phalanx Casimiro Velasquez MD Objective Remarks General: No acute distress. Vomiting. Appears uncomfortable. Heart: Regular rate and rhythm. No murmur. Lungs: Clear to auscultation bilaterally. No wheezes, rales, or rhonchi. Breathing is nonlabored. Abdomen: Deferred. Psych: Alert and oriented. Procedures None Urinary Catheter: No Vascular Central Line Catheter: No A/P Problem List: (1) Osteomyelitis ICD Code: M86.9 - Osteomyelitis, unspecified Status: Acute (2) DM (diabetes mellitus) ICD Code: E11.9 - Type 2 diabetes mellitus without complications Status: Chronic (3) ESRD (end stage renal disease) on dialysis ICD Code: N18.6 - End stage renal failure on dialysis; Z99.2 - Dependence on renal dialysis Status: Chronic Assessment and Plan 1. Osteomyelitis, left fifth finger: Appreciate hand surgery recommendations. Continue IV antibiotics. No surgical intervention planned at this time. Continue pain control. 2. End-stage renal disease on hemodialysis Tuesday/Tuesday/Tuesday: Dialysis per nephrology. Renal diet. 3. Diabetes mellitus: Monitor Accu-Cheks and cover with sliding scale insulin. 4. DVT prophylaxis: SCDs. Problem Qualifiers (1) Osteomyelitis: Bernabe Bernal MD Mar 29, 2017 14:24
[2017-03-29] MEDS ORDERED: VANCOMYCIN INJ 1,250 MG in SODIUM CHLOR 0.9% 250 ML INJ 250 ML IV ONE (16:00)
[2017-03-29] MEDS: ONDANSETRON HCL 4 MG/2 ML VIAL IV PUSH PRN (20:06)
[2017-03-29] MEDS: PIPERACIL-TAZO 2.25 GM PREMIX 50 ML IV SCH (23:20)
[2017-03-30] VITALS (9 sets, daily range): BP systolic 124–154; BP diastolic 65–77; PULSE 97–103; RESP 16–20; TEMP 98.2–99.6; O2SAT 90–100
[2017-03-30] MEDS: MORPHINE SULFATE 4 MG/ML INJ IV PUSH PRN ×3 (02:31→23:46)
[2017-03-30] MEDS: ONDANSETRON HCL 4 MG/2 ML VIAL IVP PRN ×4 (02:38→23:33)
[2017-03-30 06:34] LABS: AUTOMATED NEUTROPHIL # 7.4 TH/MM3 (1.8-7.7); BASOPHIL # 0.1 TH/MM3 (0-0.2); BASOPHIL % 0.7 % (0.0-2.0); EOSINOPHIL # 0.5 TH/MM3 (0-0.4); EOSINOPHIL % 4.7 % (0.0-4.0); HEMOGLOBIN 9.3 GM/DL (13.0-17.0); LYMPH % 8.3 % (9.0-44.0); LYMPHOCYTE # 0.8 TH/MM3 (1.0-4.8); MEAN CELL VOLUME 88.5 FL (80.0-100.0); MEAN CORPUSCULAR HEMOGLOBIN 28.4 PG (27.0-34.0); MEAN PLATELET VOLUME 6.9 FL (7.0-11.0); MONOCYTE # 1.2 TH/MM3 (0-0.9); NEUT % 74.3 % (16.0-70.0); PLATELET COUNT 374 TH/MM3 (150-450); RED BLOOD COUNT 3.28 MIL/MM3 (4.50-5.90); RED CELL DISTRIBUTION WIDTH 20.5 % (11.6-17.2)
[2017-03-30 07:02] LABS: ALBUMIN 2.8 GM/DL (3.4-5.0); AST (GOT) 11 U/L (15-37); BICARBONATE 25.4 MEQ/L (21.0-32.0); BLOOD UREA NITROGEN 50 MG/DL (7-18); CALCIUM 9.5 MG/DL (8.5-10.1); CHLORIDE 98 MEQ/L (98-107); CREATININE 9.33 MG/DL (0.60-1.30); GLOMERULAR FILTRATION RATE 7 ML/MIN (>89); GLUCOSE,RANDOM 87 MG/DL (74-106); SODIUM (NA) 135 MEQ/L (136-145)
[2017-03-30 07:09] LABS: ALKALINE PHOSPHATASE 100 U/L (45-117); ALT (GPT) 13 U/L (12-78); TOTAL BILIRUBIN ADULT 0.3 MG/DL (0.2-1.0)
[2017-03-30 08:00] LABS: PHOSPHORUS 8.7 MG/DL (2.5-4.9)
[2017-03-30] MEDS: INSULIN ASPART SUPPLEMENTAL SCALE SQ SCH ×4 (08:00→21:00)
[2017-03-30] MEDS ORDERED: RESP: ALBUTEROL 2.5 MG/IPRATROPIUM 0.5 MG NEB (PRN) NEB (09:00)
[2017-03-30] MEDS: SODIUM CHLORIDE 0.9% FLUSH 10 ML FLUSH IV FLUSH SCH ×2 (09:00→21:00)
[2017-03-30] MEDS: PIPERACIL-TAZO 2.25 GM PREMIX 50 ML IV SCH ×2 (11:00→23:00)
[2017-03-30] MEDS: VANCOMYCIN INJ 1,000 MG in SODIUM CHLOR 0.9% 250 ML INJ 250 ML IV SCH (11:12)
[2017-03-30] MEDS: EPOETIN ALFA 10,000 UNITS/ML VIAL IV PUSH PRN (11:13)
--- NOTE | 2017-03-30 12:53 | HHI.NPPN ---
Subjective History of Present Illness 46 year old with ESRD, DM, Left little finger infection Review of Systems Musculoskeletal MS: Pain/Stiffness Objective Data Data Vital Signs Date Time Temp Pulse Resp B/P (MAP) Pulse Ox O2 Delivery O2 Flow Rate FiO2 03/30/17 10:01 98.4 97 16 147/77 (100) 90 03/30/17 04:00 98.5 97 20 124/71 (88) 92 03/30/17 00:00 98.2 100 20 /72 100 03/30/17 00:00 98.2 100 20 154/72 (99) 91 03/29/17 20:00 97.8 104 20 195/84 (121) 99 03/29/17 15:45 98.1 95 18 162/77 (105) 93 03/29/17 14:02 97 21 -: 03/30/17 0610 03/30/17 0610 Physical Exam General Appearance: Well Developed, Well Nourished Neck Neck Exam: Neck Supple Pulmonary Resp Exam: Clear Bilaterally, Breath Sounds Equal Cardiology CV Exam: Regular, Normal Sinus Rhythm Gastrointestinal/Abdomen GI Exam: Soft, Non-Tender, Bowel Sounds Present Extremeties Extremities Exam: Moderate Edema (left finger) Assessment/Plan Problem List: (1) ESRD (end stage renal disease) on dialysis ICD Codes: N18.6 - End stage renal failure on dialysis; Z99.2 - Dependence on renal dialysis Status: Chronic Plan: Hemodialysis. On Tuesday, Tuesday and Tuesday continue supportive care vancomycin 1 g with each dialysis Follow cultures Proceeding on hemodialysis noted blood glucose was 67 was given juice and snack His asymptomatic denies any dizziness and confusion Does have twitches 3 L will be removed on 1K bath (2) Diabetes ICD Codes: E11.9 - Diabetes mellitus Status: Chronic Plan: Continue to monitor (3) Hypertension ICD Codes: I10 - Hypertension Status: Chronic Plan: Blood pressures checks while in the hospital (4) Osteomyelitis ICD Codes: M86.9 - Osteomyelitis, unspecified Status: Acute Plan: Hand surgery consulted on antibiotic Problem Qualifiers (1) Diabetes: (2) Osteomyelitis: Andi Roth MD Mar 30, 2017 12:53
[2017-03-30] MEDS: RESP: ALBUTEROL 2.5 MG/IPRATROPIUM 0.5 MG NEB (SCH) NEB ×3 (14:00→20:35)
--- NOTE | 2017-03-30 14:50 | HHI.PR ---
Subjective Remarks Follow up nausea/vomiting, finger infection. Patient still with nausea and vomiting today. Still having pain in the left fifth finger. States that he feels "about the same" today. Objective Vitals Vital Signs Date Time Temp Pulse Resp B/P (MAP) Pulse Ox O2 Delivery O2 Flow Rate FiO2 03/30/17 14:06 93 03/30/17 10:01 98.4 97 16 147/77 (100) 90 03/30/17 04:00 98.5 97 20 124/71 (88) 92 03/30/17 00:00 98.2 100 20 /72 100 03/30/17 00:00 98.2 100 20 154/72 (99) 91 03/29/17 20:00 97.8 104 20 195/84 (121) 99 03/29/17 15:45 98.1 95 18 162/77 (105) 93 I/O 03/29/17 03/29/17 03/29/17 03/30/17 03/30/17 03/30/17 07:00 15:00 23:00 07:00 15:00 23:00 Intake Total 100 ml 500 ml 250 ml Output Total 322 ml 3000 ml Balance 100 ml 500 ml -322 ml -2750 ml Intake IV Total 100 ml 500 ml 250 ml Output Urine Total 322 ml Hemodialysis 3000 ml # Voids 0 2 1 Result Diagram: 03/30/17 0610 03/30/17 0610 Imaging Last Impressions Hand X-Ray 03/29/17 0000 Signed Impressions: Service Date/Time: Wednesday, March 29, 2017 03:10 - CONCLUSION: Appearance is worrisome for osteomyelitis involving the distal aspect of the fifth finger proximal phalanx Casimiro Velasquez MD Objective Remarks General: No acute distress. Heart: Regular rate and rhythm. No murmur. Lungs: Clear to auscultation bilaterally. No wheezes, rales, or rhonchi. Breathing is nonlabored. Abdomen: Soft, mild diffuse tenderness to palpation, nondistended. Extremities: No lower extremity edema. Psych: Alert and oriented. Procedures None Urinary Catheter: No Vascular Central Line Catheter: No A/P Problem List: (1) Osteomyelitis ICD Code: M86.9 - Osteomyelitis, unspecified Status: Acute (2) DM (diabetes mellitus) ICD Code: E11.9 - Type 2 diabetes mellitus without complications Status: Chronic (3) ESRD (end stage renal disease) on dialysis ICD Code: N18.6 - End stage renal failure on dialysis; Z99.2 - Dependence on renal dialysis Status: Chronic Assessment and Plan 1. Osteomyelitis, left fifth finger: Appreciate hand surgery recommendations. Continue IV antibiotics. No surgical intervention planned at this time. Continue pain control. 2. End-stage renal disease on hemodialysis Tuesday/Tuesday/Tuesday: Dialysis per nephrology. Renal diet. 3. Diabetes mellitus: Monitor Accu-Cheks and cover with sliding scale insulin. 4. DVT prophylaxis: SCDs. 5. Nausea/vomiting: Antiemetics as needed. 6. Hyperkalemia: Had dialysis today. Appreciate nephrology recommendations. Problem Qualifiers (1) Osteomyelitis: Bernabe Bernal MD Mar 30, 2017 14:50
[2017-03-30] MEDS ORDERED: LORA-474 PO (15:09)
[2017-03-30] MEDS ORDERED: ASPI-110 PO (15:09)
[2017-03-30] MEDS ORDERED: RIFA300C2 PO (15:10)
[2017-03-30] MEDS: MORPHINE SULFATE 2 MG/ML INJ IV PUSH PRN (17:45)
--- NOTE | 2017-03-30 17:48 | HHI.PR ---
Subjective Remarks pt doesn't notice a whole lot of improvement in the left 5th finger since last evening Objective Vital Signs Date Time Temp Pulse Resp B/P (MAP) Pulse Ox O2 Delivery O2 Flow Rate FiO2 03/30/17 16:34 93 03/30/17 14:06 93 03/30/17 12:00 98.6 102 16 145/72 (96) 98 03/30/17 10:01 98.4 97 16 147/77 (100) 90 03/30/17 04:00 98.5 97 20 124/71 (88) 92 03/30/17 00:00 98.2 100 20 /72 100 03/30/17 00:00 98.2 100 20 154/72 (99) 91 03/29/17 20:00 97.8 104 20 195/84 (121) 99 I/O 03/29/17 03/29/17 03/29/17 03/30/17 03/30/17 03/30/17 07:00 15:00 23:00 07:00 15:00 23:00 Intake Total 100 ml 500 ml 250 ml Output Total 322 ml 3000 ml Balance 100 ml 500 ml -322 ml -2750 ml Intake IV Total 100 ml 500 ml 250 ml Output Urine Total 322 ml Hemodialysis 3000 ml # Voids 0 2 1 Result Diagram: 03/30/17 0610 03/30/17 0610 Objective Remarks Examination left hand and small finger reveals slightly improved edema in the left fifth finger is the skin wrinkles are coming back There is no fluid collection or abscess to drain anywhere Passive range of motion at the DIP, PIP, and MCP joints is nontender He is tender to palpation over the proximal and middle phalanges Capillary refills less than 2 seconds Neurovascularly intact throughout Is awake alert and oriented 3 Is very pleasant He is lying comfortably in his bed Assessment and Plan Problem List: (1) Pain in finger of left hand ICD Codes: M79.645 - Pain in left finger(s) Plan: There still nothing surgically treatable about the left hand and fifth finger. I've ordered another x-ray to see if there is any interval change in 48 hours. I've also ordered infectious disease consult to see if they think it is osteomyelitis and if so to prescribe the most appropriate treatment I'll continue to follow along, but no surgical intervention indicated at this time Saturnino Ramirez III, MD Mar 30, 2017 17:48
[2017-03-30] MEDS: ONDANSETRON HCL 4 MG/2 ML VIAL IV PUSH PRN (23:33)
[2017-03-31] VITALS (8 sets, daily range): BP systolic 124–179; BP diastolic 59–90; PULSE 82–106; RESP 18–20; TEMP 98.5–99.7; O2SAT 95–99
[2017-03-31] MEDS: MORPHINE SULFATE 4 MG/ML INJ IV PUSH PRN ×2 (04:18→21:11)
[2017-03-31] MEDS: INSULIN ASPART SUPPLEMENTAL SCALE SQ SCH ×4 (07:46→21:00)
[2017-03-31] MEDS: SODIUM CHLORIDE 0.9% FLUSH 10 ML FLUSH IV FLUSH SCH ×2 (07:47→20:59)
[2017-03-31] MEDS: ONDANSETRON HCL 4 MG/2 ML VIAL IV PUSH PRN ×2 (07:47→17:20)
--- NOTE | 2017-03-31 09:43 | HHI.PR ---
Subjective Remarks Follow-up visit ESRD on HD, DM2, Nausea, vomiting. Patient seen and examined today lying in bed. States that he continues to have nausea, vomiting. Feeling a lot better compared to where he was yesterday however abdominal pain still persists. Denies cramping. Denies diarrhea. States he had BM this am good amount. Objective Vitals Vital Signs Date Time Temp Pulse Resp B/P (MAP) Pulse Ox O2 Delivery O2 Flow Rate FiO2 03/31/17 08:00 98.7 106 18 179/90 (119) 97 03/31/17 04:58 99.4 99 20 136/65 (88) 96 03/31/17 00:36 99.7 99 20 172/76 (108) 99 03/30/17 21:17 99.6 103 20 142/65 (90) 91 03/30/17 20:38 95 03/30/17 17:57 14 03/30/17 16:34 93 03/30/17 16:00 99.0 99 16 145/75 (98) 95 03/30/17 14:06 93 03/30/17 12:00 98.6 102 16 145/72 (96) 98 03/30/17 10:01 98.4 97 16 147/77 (100) 90 I/O 03/30/17 03/30/17 03/30/17 03/31/17 03/31/17 03/31/17 07:00 15:00 23:00 07:00 15:00 23:00 Intake Total 250 ml 50 ml Output Total 3000 ml Balance -2750 ml 50 ml Intake IV Total 250 ml 50 ml Hemodialysis 3000 ml # Voids 1 Result Diagram: 03/30/17 0610 03/30/17 0610 Imaging Last Impressions Hand X-Ray 03/29/17 0000 Signed Impressions: Service Date/Time: Wednesday, March 29, 2017 03:10 - CONCLUSION: Appearance is worrisome for osteomyelitis involving the distal aspect of the fifth finger proximal phalanx Casimiro Velasquez MD Objective Remarks GENERAL: This is a well-nourished, well-developed patient, in no apparent distress. SKIN: Warm and dry. Buttock wound and chest wounds secondary to hydradenitis severity HEENT: Normocephalic. Pupils equal round and reactive. Nose without bleeding. Airway patent. NECK: Trachea midline. CARDIOVASCULAR: Regular rate and rhythm without murmurs, gallops, or rubs. RESPIRATORY: Clear to auscultation. Breath sounds equal bilaterally. No wheezes , rales, or rhonchi. GASTROINTESTINAL: Abdomen soft, nondistended. Bowel Sounds normoactive x4. Diffuse abdominal pain to palpation. Nausea. MUSCULOSKELETAL: Extremities without clubbing, cyanosis, or edema. NEUROLOGICAL: Awake and alert. Oriented to time, place, person. No focal neuro deficit. Moves all extremities. Normal speech. Procedures None A/P Problem List: (1) Osteomyelitis ICD Code: M86.9 - Osteomyelitis, unspecified Status: Acute (2) DM (diabetes mellitus) ICD Code: E11.9 - Type 2 diabetes mellitus without complications Status: Chronic (3) ESRD (end stage renal disease) on dialysis ICD Code: N18.6 - End stage renal failure on dialysis; Z99.2 - Dependence on renal dialysis Status: Chronic Assessment and Plan 46 y/o male with a history of HTN, Hyperlipidemia, DM, Hidradenitis Suppurativa , ESRD on HD M/W/F, Anxiety, Depression and Gastritis presented to the ED with complaints of pain in his left pinky finger. Osteomyelitis, left fifth finger: - Appreciate hand surgery recommendations. No surgical intervention planned at this time - Continue IV antibiotics. - Continue pain control, but decrease dose since patient mills n/v may contribute to gastroparesis End-stage renal disease on hemodialysis Tuesday/Tuesday/Tuesday: - Dialysis per nephrology. - Renal diet Diabetes mellitus: - Monitor Accu-Cheks and cover with sliding scale insulin. Nausea/vomiting: - Intractible. Dry heaving - Zofran will add reglan - Check labs including lipase, LFTs - CT abdomen/pelvis - Will consult GI if warranted based on CT scan and lab results, or if patient continues to have nausea vomiting DVT prophylaxis: SCDs. Discussed with patient, nursing, Dr. Gates Problem Qualifiers (1) Osteomyelitis: Leighton Gomez Mar 31, 2017 09:43
--- NOTE | 2017-03-31 10:02 | RADRPT ---
EXAM DATE/TIME: 03/31/2017 09:18 [facility] COMPARISON: No previous studies available for comparison. INDICATIONS : Pain, swelling, loss of movement. denies injury MEDICAL HISTORY : Renal failure, chronic. Hypertension. Diabetes mellitus type 2. SURGICAL HISTORY : LUE AV Fistula ENCOUNTER: Initial ACUITY: 1 week PAIN SCORE: 8/10 LOCATION: Left 5th finger FINDINGS: Examination of the fifth digit of the left hand demonstrates diffuse soft tissue swelling throughout the fifth finger. The bony structures are grossly intact. No joint dislocation. There is some faint c alcifications adjacent to the distal fifth proximal phalanx. This may be from an old injury. No defin ite radiopaque foreign bodies are demonstrated.. CONCLUSION: 1. Diffuse soft tissue swelling of the fifth finger. 2. No acute fracture or joint dislocation. Lawrence Medel MD on March 31, 2017 at 9:58 Board Certified Radiologist. This report was verified electronically.
[2017-03-31] MEDS: RESP: ALBUTEROL 2.5 MG/IPRATROPIUM 0.5 MG NEB (SCH) NEB ×3 (10:09→20:00)
[2017-03-31] MEDS: PIPERACIL-TAZO 2.25 GM PREMIX 50 ML IV SCH (10:26)
[2017-03-31] MEDS: METOCLOPRAMIDE HCL 10 MG/2 ML VIAL IV PUSH SCH ×2 (10:26→13:28)
[2017-03-31] MEDS: CARVEDILOL 12.5 MG TAB PO SCH ×2 (10:30→20:59)
[2017-03-31] MEDS ORDERED: DIATRIZOATE MEGLUM/DIATRIZOATE SOD 9 ML CUP PO ONE (10:30)
[2017-03-31] MEDS: PANTOPRAZOLE SOD 40 MG DELAYED RELEASE TAB PO SCH (10:34)
[2017-03-31] MEDS: MORPHINE SULFATE 2 MG/ML INJ IV PUSH PRN ×2 (10:35→17:22)
--- NOTE | 2017-03-31 11:37 | HHI.PR ---
Subjective Remarks pt doesn't notice a whole lot of improvement in the left 5th finger Objective Vital Signs Date Time Temp Pulse Resp B/P (MAP) Pulse Ox O2 Delivery O2 Flow Rate FiO2 03/31/17 10:11 99 21 03/31/17 08:00 98.7 106 18 179/90 (119) 97 03/31/17 04:58 99.4 99 20 136/65 (88) 96 03/31/17 00:36 99.7 99 20 172/76 (108) 99 03/30/17 21:17 99.6 103 20 142/65 (90) 91 03/30/17 20:38 95 03/30/17 17:57 14 03/30/17 16:34 93 03/30/17 16:00 99.0 99 16 145/75 (98) 95 03/30/17 14:06 93 03/30/17 12:00 98.6 102 16 145/72 (96) 98 I/O 03/30/17 03/30/17 03/30/17 03/31/17 03/31/17 03/31/17 07:00 15:00 23:00 07:00 15:00 23:00 Intake Total 250 ml 50 ml 50 ml Output Total 3000 ml Balance -2750 ml 50 ml 50 ml Intake IV Total 250 ml 50 ml 50 ml Hemodialysis 3000 ml # Voids 1 Result Diagram: 03/30/17 0610 03/30/17 0610 Other Results no real change on xray Objective Remarks Examination left hand and small finger reveals slightly improved edema in the left fifth finger There is no fluid collection or abscess to drain anywhere Passive range of motion at the DIP, PIP, and MCP joints is nontender He is tender to palpation over the proximal and middle phalanges has nearly full AROM but is uncomfortable doing it Capillary refills less than 2 seconds Neurovascularly intact throughout Is awake alert and oriented 3 Is very pleasant He is lying comfortably in his bed Assessment and Plan Problem List: (1) Pain in finger of left hand ICD Codes: M79.645 - Pain in left finger(s) Plan: There still nothing surgically treatable about the left hand and fifth finger. ID consult pending I'll continue to follow along, but no surgical intervention indicated at this time Continue elevation OT to help with ROM Saturnino Ramirez III, MD Mar 31, 2017 11:37
[2017-03-31] MEDS: hydrALAZINE HCL 100 MG TAB PO SCH ×2 (13:28→17:20)
[2017-03-31] MEDS: DICYCLOMINE HCL 20 MG TAB PO SCH ×3 (13:28→20:58)
--- NOTE | 2017-03-31 13:42 | MB ---
cc: ANNE PARISH MD DATE OF CONSULTATION: 03/31/[address] Ramirez. REASON FOR CONSULTATION Possible osteomyelitis of the left fifth finger. HISTORY OF PRESENT ILLNESS This is a 46-year-old black male who has history of end-stage renal disease and he undergoes hemodialysis. The patient was admitted to the hospital on 03/29 with pain and swelling of his left fifth finger. He states that this swelling began suddenly. He denies any trauma to the finger or any insect bites or any repetitive movements. He has AV fistula in the left upper extremity via which he gets hemodialysis three times a week. The patient reports that he had fever also before he came to the emergency department. He however, had mostly pain which prompted him to seek evaluation in the emergency department and subsequently he was admitted to the hospital for further treatment. He is currently on antibiotics intravenous. The patient has been afebrile. His T-max is 99.7. White blood cell count is normal. He had the plain x-ray of the left hand and it showed soft tissue swelling of the fifth finger. There is no acute fracture or joint dislocation and the bony structures appeared intact. Blood cultures have no growth in 2 days. PAST MEDICAL HISTORY 1. Diabetes mellitus. 2. Hypertension. 3. End-stage renal disease. 4. Osteoarthritis. 5. Anemia. 6. Hypoparathyroidism. 7. AV fistula. ALLERGIES METOCLOPRAMIDE, SUMATRIPTAN, CONTRAST AGENTS, FISH CONTAINED PRODUCTS. MEDICATIONS 1. Vancomycin. 2. Piperacillin / tazobactam. 3. Coreg. 4. Protonix. 5. Norvasc. 6. Bentyl. 7. Apresoline. SOCIAL HISTORY No tobacco, no alcohol. No illicit drugs. FAMILY HISTORY Noncontributory. REVIEW OF SYSTEMS Significant for pain in the left index finger. Otherwise negative on 10-point review. PHYSICAL EXAMINATION GENERAL: This is a well-developed male who is in no acute distress. He is awake and alert and oriented. VITAL SIGNS: Includes temperature of 98.7, BP 179/90, heart rate 108, respirations 18. HEENT: Head is atraumatic. Extraocular movements grossly intact, pupils reactive to light. No icterus. Oropharynx no visible lesions. NECK: Supple. No adenopathy. LUNGS: Clear to auscultation. HEART: Normal S1-S2. ABDOMEN: Bowel sounds present, soft, nontender. RECTAL: Not performed. EXTREMITIES: The left being index finger has a sausage type appearance with swelling and extreme tenderness on palpation and warmth. The remaining fingers on the left hand appears intact. There are no blisters visible. The remaining extremities have no clubbing, cyanosis or edema. SKIN: No diffuse rash. NEURO: Nonfocal. PSYCHIATRIC: The patient is calm and cooperative. LABORATORY DATA WBC 10.0, platelets 374, hemoglobin 9.3, 74% neutrophils, creatinine 9.33, sodium 135. IMAGING STUDIES X-ray of the hand reportedly is worrisome for osteomyelitis involving the distal aspect of the fifth finger proximal phalanx. IMPRESSION 1. Cellulitis of the left index finger. 2. Possible osteomyelitis. 3. End-stage renal disease. 4. Follow the blood cultures. Because the patient has a closed wound, it may be difficult to determine what organism could be causing the problem if he has osteomyelitis, since we would have to open up the finger to get a culture. At this point all we can do is use empiric antibiotic treatment and follow along to see if he responds. Because he has endstage renal disease the vancomycin can be given with dialysis and I recommend continuing the piperacillin / tazobactam for now. I also recommend getting uric acid level on this patient and also obtain sedimentation rate. Thank you for this consultation. I will follow the patient's progress with you and will make further recommendations upon followup if necessary or if the blood culture comes back positive. Anne Parish MD FD/MARINO /1:00 PM /1:22 PM
--- NOTE | 2017-03-31 14:09 | HHI.NPPN ---
Subjective History of Present Illness 46 year old with ESRD, DM, Left little finger infection Additional Remarks c/o nausea vomiting Review of Systems Musculoskeletal MS: Pain/Stiffness Objective Data Data 03/31/17 04/01/17 19:00 07:00 Intake Total 50 ml Balance 50 ml Intake IV Total 50 ml Vital Signs Date Time Temp Pulse Resp B/P (MAP) Pulse Ox O2 Delivery O2 Flow Rate FiO2 03/31/17 12:00 98.6 93 18 155/76 (102) 97 03/31/17 10:11 99 21 03/31/17 08:00 98.7 106 18 179/90 (119) 97 03/31/17 04:58 99.4 99 20 136/65 (88) 96 03/31/17 00:36 99.7 99 20 172/76 (108) 99 03/30/17 21:17 99.6 103 20 142/65 (90) 91 03/30/17 20:38 95 03/30/17 17:57 14 03/30/17 16:34 93 03/30/17 16:00 99.0 99 16 145/75 (98) 95 -: 03/30/17 0610 03/30/17 0610 Physical Exam General Appearance: Well Developed, Well Nourished Neck Neck Exam: Neck Supple Pulmonary Resp Exam: Clear Bilaterally, Breath Sounds Equal Cardiology CV Exam: Regular, Normal Sinus Rhythm Gastrointestinal/Abdomen GI Exam: Soft, Non-Tender, Bowel Sounds Present Extremeties Extremities Exam: Moderate Edema (left finger) Assessment/Plan Problem List: (1) ESRD (end stage renal disease) on dialysis ICD Codes: N18.6 - End stage renal failure on dialysis; Z99.2 - Dependence on renal dialysis Status: Chronic Plan: Hemodialysis. On Tuesday, Tuesday and Tuesday continue supportive care vancomycin 1 g with each dialysis Follow cultures HD MWF getting CT Abd (2) Diabetes ICD Codes: E11.9 - Diabetes mellitus Status: Chronic Plan: Continue to monitor (3) Hypertension ICD Codes: I10 - Hypertension Status: Chronic Plan: Blood pressures checks while in the hospital (4) Osteomyelitis ICD Codes: M86.9 - Osteomyelitis, unspecified Status: Acute Plan: Hand surgery consulted on antibiotic Problem Qualifiers (1) Diabetes: (2) Osteomyelitis: Andi Roth MD Mar 31, 2017 14:09
[2017-03-31 15:47] LABS: ALBUMIN 2.8 GM/DL (3.4-5.0); ALKALINE PHOSPHATASE 101 U/L (45-117); ALT (GPT) 13 U/L (12-78); AST (GOT) 15 U/L (15-37); BICARBONATE 30.7 MEQ/L (21.0-32.0); BLOOD UREA NITROGEN 40 MG/DL (7-18); CHLORIDE 93 MEQ/L (98-107); CREATININE 9.15 MG/DL (0.60-1.30); GLOMERULAR FILTRATION RATE 8 ML/MIN (>89); GLUCOSE,RANDOM 101 MG/DL (74-106); LIPASE 95 U/L (73-393); SODIUM (NA) 133 MEQ/L (136-145); TOTAL BILIRUBIN ADULT 0.3 MG/DL (0.2-1.0); TOTAL PROTEIN 8.2 GM/DL (6.4-8.2)
--- NOTE | 2017-03-31 16:31 | RADRPT ---
EXAM DATE/TIME: 03/31/2017 16:08 [facility] COMPARISON: CT ABDOMEN & PELVIS W/O CONTRAST, August 08, 2016, 19:58. INDICATIONS : Diffuse upper abdomen pain with vomiting. ORAL CONTRAST: Partial prescribed oral contrast ingested. RADIATION DOSE: 12.00 CTDIvol (mGy) MEDICAL HISTORY : Cardiovascular disease. Hypertension. Diabetes mellitus type 2.Sickle cell. SURGICAL HISTORY : None. ENCOUNTER: Initial ACUITY: 1 day PAIN SCALE: 8/10 LOCATION: Bilateral upper quadrant TECHNIQUE: Volumetric scanning of the abdomen and pelvis was performed. Using automated exposure control and ad justment of the mA and/or kV according to patient size, radiation dose was kept as low as reasonably achievable to obtain optimal diagnostic quality images. DICOM format image data is available electro nically for review and comparison. The lack of IV contrast limits the diagnosis for certain organ pa thology. FINDINGS: LOWER LUNGS: The visualized lower lungs are clear. Heart size is enlarged but stable. LIVER: Homogeneous density without lesion. There is no dilation of the biliary tree. There are some stable calcifications in the liver. No calcified gallstones. No significant changes compared to the prior st udy. SPLEEN: Normal size without lesion. PANCREAS: Within normal limits. KIDNEYS: Normal in size and shape. There is no mass, stone, or hydronephrosis. Stable complex parapelvic cyst of the right kidney measuring 5 cm x 3.3 cm. ADRENAL GLANDS: Within normal limits. VASCULAR: There is no aortic aneurysm. BOWEL/MESENTERY: The stomach, small bowel, and colon demonstrate no acute abnormality. There is no free intraperitone al air or fluid. No inflammatory changes are seen. There is stool throughout the colon. ABDOMINAL WALL: Within normal limits. RETROPERITONEUM: There is no lymphadenopathy. BLADDER: No wall thickening or mass. REPRODUCTIVE: Within normal limits. INGUINAL: A few stable nonspecific lymph nodes are seen in the inguinal areas bilaterally. No significant metz es compared to the prior study. MUSCULOSKELETAL: The bony structures are stable in appearance compared to prior exam with findings suggestive of chron ic renal disease. There is some primary degenerative changes as well.. Stable lytic lesion right gissell c wing. No significant changes compared to the prior study. CONCLUSION: 1. Stable complex right parapelvic cyst. 2. No significant changes compared to the prior examination 3. No acute pathology. Lawrence Medel MD on March 31, 2017 at 16:21 Board Certified Radiologist. This report was verified electronically.
--- NOTE | 2017-03-31 17:31 | PD.CONS ---
HPI History of Present Illness This is a 46 year old male with gastroparesis, DM, ESRD on HD who presented for left 5th finger swelling and pain, was found to have osteomyelitis. GI consulted for n/v, RUQ pain. He has been having these symptoms for 4 days. He has n/v every other day. He does not take anything for gastroparesis. He has had pos GES before. He had EGD at [facility] with Dr Farley 12/2016 that indicated gastroparesis, otherwise unremarkable. He was seen by us at [facility] 07/2016 for similar and had US that showed abnormal gallbladder and subsequently a normal HIDA scan. Denies blood in vomit, blood in stool, diarrhea, tarry stool. He is allergic to reglan. CT showed stool throughout colon. (Molly Lopez) PFSH Past Medical History HTN Hyperlipidemia DM Hidradenitis Suppurativa ESRD on HD M/W/F Anxiety Depression Gastritis Past Surgical History LUE AV Fistula (Molly Lopez) Coded Allergies: Fish Containing Products (Verified Allergy, Severe, SWELLING-CANT BREATH- HIVES, 03/29/17) diatrizoate meglumine (Verified Allergy, Severe, nausea/vomiting, 03/29/17 ) causes n/v HAD TEST TODAY 11/15/11 TOOK BENADRYL AND DID OK. gadobenic acid (Verified Allergy, Severe, nausea/vomiting, 03/29/17) causes n/v HAD TEST TODAY 11/15/11 TOOK BENADRYL AND DID OK. gadodiamide (Verified Allergy, Severe, nausea/vomiting, 03/29/17) causes n/v HAD TEST TODAY 11/15/11 TOOK BENADRYL AND DID OK. gadoteridol (Verified Allergy, Severe, nausea/vomiting, 03/29/17) causes n/v HAD TEST TODAY 11/15/11 TOOK BENADRYL AND DID OK. iodixanol (Verified Allergy, Severe, nausea/vomiting, 03/29/17) causes n/v HAD TEST TODAY 11/15/11 TOOK BENADRYL AND DID OK. iohexol (Verified Allergy, Severe, nausea/vomiting, 03/29/17) causes n/v HAD TEST TODAY 11/15/11 TOOK BENADRYL AND DID OK. metoclopramide (Verified Allergy, Severe, ANXIETY, 03/29/17) sumatriptan (Verified Allergy, Severe, AGITATION/CAUSED BREAK OUT, ) Family History Patient denies any family history, no heart disease or cancer. Social History Patient denies any tobacco, alcohol or illicit drug use. (Molly Lopez) Review of Systems Constitutional: DENIES: Fever Eyes: DENIES: Blurred vision Ears, nose, mouth, throat: DENIES: Hearing loss Respiratory: DENIES: Hemoptysis Cardiovascular: DENIES: Chest pain Gastrointestinal: COMPLAINS OF: Abdominal pain, Nausea, Vomiting, DENIES: Black stools, Bloody stools, Constipation, Diarrhea, Hematemesis Genitourinary: DENIES: Hematuria Musculoskeletal: COMPLAINS OF: Joint Swelling (left 5th finger), DENIES: Neck pain Integumentary: DENIES: Pruritus Hematologic/lymphatic: DENIES: Bruising Neurologic: DENIES: Abnormal gait Psychiatric: DENIES: Confusion (Molly Lopez) GI Exam Vitals I&O Vital Signs Date Time Temp Pulse Resp B/P (MAP) Pulse Ox O2 Delivery O2 Flow Rate FiO2 03/31/17 16:21 98.5 82 18 124/74 (91) 98 03/31/17 12:00 98.6 93 18 155/76 (102) 97 03/31/17 10:11 99 21 03/31/17 08:00 98.7 106 18 179/90 (119) 97 03/31/17 04:58 99.4 99 20 136/65 (88) 96 03/31/17 00:36 99.7 99 20 172/76 (108) 99 03/30/17 21:17 99.6 103 20 142/65 (90) 91 03/30/17 20:38 95 03/30/17 17:57 14 I/O 03/30/17 03/30/17 03/30/17 03/31/17 03/31/17 03/31/17 07:00 15:00 23:00 07:00 15:00 23:00 Intake Total 250 ml 50 ml 50 ml Output Total 3000 ml Balance -2750 ml 50 ml 50 ml Intake IV Total 250 ml 50 ml 50 ml Hemodialysis 3000 ml # Voids 1 Imaging Last Impressions Finger X-Ray 03/31/17 0000 Signed Impressions: Service Date/Time: March 09:18 - CONCLUSION: 1. Diffuse soft tissue swelling of the fifth finger. 2. No acute fracture or joint dislocation. Lawrence Medel MD Hand X-Ray 03/29/17 0000 Signed Impressions: Service Date/Time: Wednesday, March 29, 2017 03:10 - CONCLUSION: Appearance is worrisome for osteomyelitis involving the distal aspect of the fifth finger proximal phalanx Casimiro Velasquez MD Laboratory Test 03/31/17 04:20 03/31/17 14:30 Random Vancomycin Level 30.5 COMMENT Blood Urea Nitrogen 40 MG/DL Creatinine 9.15 MG/DL Random Glucose 101 MG/DL Total Protein 8.2 GM/DL Albumin 2.8 GM/DL Calcium Level 9.0 MG/DL Uric Acid 5.8 MG/DL Alkaline Phosphatase 101 U/L Aspartate Amino Transf (AST/SGOT) 15 U/L Alanine Aminotransferase (ALT/SGPT) 13 U/L Total Bilirubin 0.3 MG/DL Sodium Level 133 MEQ/L Potassium Level 5.0 MEQ/L Chloride Level 93 MEQ/L Carbon Dioxide Level 30.7 MEQ/L Anion Gap 9 MEQ/L Estimat Glomerular Filtration Rate 8 ML/MIN Lipase 95 U/L Date/Time Source Procedure Growth Status 03/29/17 03:30 Blood Peripheral Aerobic Blood Culture - Preliminary NO GROWTH IN 2 DAYS Resulted 03/29/17 03:30 Blood Peripheral Anaerobic Blood Culture - Preliminary NO GROWTH IN 2 DAYS Resulted Physical Examination HEENT: PERRL; normocephalic; atraumatic; no jaundice. CHEST: CTA CARDIAC: RRR ABDOMEN: Soft, nondistended, RUQ TTP; no hepatosplenomegaly; bowel sounds are present in all four quadrants. EXTREMITIES: No clubbing, cyanosis, or edema. Swelling left 5th finger SKIN: Normal; no rash; no jaundice. [employer] OPERATOR: No focal deficits; alert and oriented times three. (Molly Lopez) Assessment and Plan Plan ASSESSMENT - n/v, RUQ pain - suspect gastroparesis. pt has had pos GES, has not tried any meds for gastroparesis. Had EGD 12/2016 unremarkable other than some food residue indicating delayed gastric emptying. CT showed stool. had neg HIDA 07/2016. allergic to reglan bentyl started. - DM, oestomyelitis, ESRD on HD per primary PLAN - trial EES - continue bentyl - consider PRN phenergan - low residue diet - if no improvement could consider repeat EGD, HIDA - supportive care - further recs to follow This pt seen by myself and Dr Morgan and this note is written on his behalf (Molly Lopez) Physician Comments Seen and examined with Pratima. Will follow up with you. (Nicolas Morgan MD) Molly Lopez Mar 31, 2017 17:31 Nicolas Morgan MD Mar 31, 2017 21:37
[2017-03-31] MEDS ORDERED: ERYTHROMYCIN ETHYLSUCCINATE 200 MG/5 ML SUSP 100 ML BOTTLE PO SCH (22:00)
[2017-04-01] VITALS (7 sets, daily range): BP systolic 100–157; BP diastolic 54–81; PULSE 79–98; RESP 16–18; TEMP 97.8–99; O2SAT 16–99
[2017-04-01] MEDS: PIPERACIL-TAZO 2.25 GM PREMIX 50 ML IV SCH ×2 (00:46→10:21)
[2017-04-01] MEDS: MORPHINE SULFATE 2 MG/ML INJ IV PUSH PRN ×3 (00:50→17:12)
[2017-04-01] MEDS: ERYTHROMYCIN ETHYLSUCCINATE 400 MG/5 ML SUSP 100 ML BOTTLE PO SCH ×3 (05:41→22:14)
[2017-04-01] MEDS: MORPHINE SULFATE 4 MG/ML INJ IV PUSH PRN ×2 (05:42→22:15)
[2017-04-01] MEDS: INSULIN ASPART SUPPLEMENTAL SCALE SQ SCH ×4 (07:19→21:00)
[2017-04-01] MEDS: PANTOPRAZOLE SOD 40 MG DELAYED RELEASE TAB PO SCH (07:52)
[2017-04-01] MEDS: DICYCLOMINE HCL 20 MG TAB PO SCH ×4 (07:52→22:13)
[2017-04-01] MEDS: RESP: ALBUTEROL 2.5 MG/IPRATROPIUM 0.5 MG NEB (SCH) NEB ×3 (08:00→20:00)
[2017-04-01] MEDS: SODIUM CHLORIDE 0.9% FLUSH 10 ML FLUSH IV FLUSH SCH ×2 (08:09→22:13)
[2017-04-01] MEDS: CARVEDILOL 12.5 MG TAB PO SCH ×2 (08:09→22:13)
[2017-04-01] MEDS: hydrALAZINE HCL 100 MG TAB PO SCH ×3 (08:09→17:12)
--- NOTE | 2017-04-01 11:42 | HHI.NPPN ---
Subjective History of Present Illness 46 year old with ESRD, DM, Left little finger infection Additional Remarks c/o pain left finger Review of Systems Musculoskeletal MS: Pain/Stiffness Objective Data Data Vital Signs Date Time Temp Pulse Resp B/P (MAP) Pulse Ox O2 Delivery O2 Flow Rate FiO2 04/01/17 08:29 97.8 82 18 150/69 (96) 96 04/01/17 04:52 98.2 83 18 145/65 (91) 97 04/01/17 00:40 99.0 79 18 100/54 (69) 96 03/31/17 20:36 98 Nasal Cannula 2.00 03/31/17 20:10 98.7 87 18 126/59 (81) 95 03/31/17 16:21 98.5 82 18 124/74 (91) 98 03/31/17 12:00 98.6 93 18 155/76 (102) 97 -: 03/30/17 0610 04/01/17 0700 Physical Exam General Appearance: Well Developed, Well Nourished Neck Neck Exam: Neck Supple Pulmonary Resp Exam: Clear Bilaterally, Breath Sounds Equal Cardiology CV Exam: Regular, Normal Sinus Rhythm Gastrointestinal/Abdomen GI Exam: Soft, Non-Tender, Bowel Sounds Present Extremeties Extremities Exam: Moderate Edema (left finger) Assessment/Plan Problem List: (1) ESRD (end stage renal disease) on dialysis ICD Codes: N18.6 - End stage renal failure on dialysis; Z99.2 - Dependence on renal dialysis Status: Chronic Plan: Hemodialysis. On Tuesday, Tuesday and Tuesday continue supportive care vancomycin 1 g with each dialysis HD progress UF 2-3 l Today seen during treatment (2) Diabetes ICD Codes: E11.9 - Diabetes mellitus Status: Chronic Plan: Continue to monitor (3) Hypertension ICD Codes: I10 - Hypertension Status: Chronic Plan: Blood pressures checks while in the hospital (4) Osteomyelitis ICD Codes: M86.9 - Osteomyelitis, unspecified Status: Acute Plan: Hand surgery consulted on antibiotic Problem Qualifiers (1) Diabetes: (2) Osteomyelitis: Andi Roth MD Apr 01, 2017 11:42
[2017-04-01] MEDS: VANCOMYCIN INJ 1,000 MG in SODIUM CHLOR 0.9% 250 ML INJ 250 ML IV SCH (12:04)
[2017-04-01] MEDS: EPOETIN ALFA 10,000 UNITS/ML VIAL IV PUSH PRN (12:05)
--- NOTE | 2017-04-01 13:06 | HHI.PR ---
Subjective Remarks pt notices improvement in movement today Objective Vital Signs Date Time Temp Pulse Resp B/P (MAP) Pulse Ox O2 Delivery O2 Flow Rate FiO2 04/01/17 12:57 98.1 90 18 157/72 (100) 99 04/01/17 08:29 97.8 82 18 150/69 (96) 96 04/01/17 04:52 98.2 83 18 145/65 (91) 97 04/01/17 00:40 99.0 79 18 100/54 (69) 96 03/31/17 20:36 98 Nasal Cannula 2.00 03/31/17 20:10 98.7 87 18 126/59 (81) 95 03/31/17 16:21 98.5 82 18 124/74 (91) 98 I/O 03/31/17 03/31/17 03/31/17 04/01/17 04/01/17 04/01/17 07:00 15:00 23:00 07:00 15:00 23:00 Intake Total 50 ml 50 ml 1240 ml Output Total 2000 ml Balance 50 ml 50 ml 1240 ml -2000 ml Intake Oral 1240 ml IV Total 50 ml 50 ml Hemodialysis 2000 ml # Voids 4 2 Result Diagram: 03/30/17 0610 04/01/17 0700 Objective Remarks Examination left hand and small finger reveals improved edema in the left fifth finger There is no fluid collection or abscess to drain anywhere Passive range of motion at the DIP, PIP, and MCP joints is nontender the finger is soft everywhere has nearly full AROM but is uncomfortable doing it Capillary refills less than 2 seconds Neurovascularly intact throughout Is awake alert and oriented 3 Is very pleasant He is lying comfortably in his bed Assessment and Plan Problem List: (1) Pain in finger of left hand ICD Codes: M79.645 - Pain in left finger(s) Plan: There still nothing surgically treatable about the left hand and fifth finger. I'll continue to follow along, but no surgical intervention indicated at this time Continue elevation OT to help with Saturnino Roberts III, MD Apr 01, 2017 13:06
--- NOTE | 2017-04-01 15:12 | HHI.IDPN ---
Note Infectious Disease Note Patient states that he still has pain int the left 5th finger. Afebrile. Sed rate elevated. Swelling decreased slightly. Blood cultures have no growth in 2 days. PAST MEDICAL HISTORY 1. Diabetes mellitus. 2. Hypertension. 3. End-stage renal disease. 4. Osteoarthritis. 5. Anemia. 6. Hypoparathyroidism. 7. AV fistula. ALLERGIES METOCLOPRAMIDE, SUMATRIPTAN, CONTRAST AGENTS, FISH CONTAINED PRODUCTS. MEDICATIONS 1. Vancomycin. 2. Piperacillin / tazobactam. OBJECTIVE: Vital Signs Date Time Temp Pulse Resp B/P (MAP) Pulse Ox O2 Delivery O2 Flow Rate FiO2 04/01/17 12:57 98.1 90 18 157/72 (100) 99 04/01/17 08:29 97.8 82 18 150/69 (96) 96 04/01/17 04:52 98.2 83 18 145/65 (91) 97 04/01/17 00:40 99.0 79 18 100/54 (69) 96 03/31/17 20:36 98 Nasal Cannula 2.00 03/31/17 20:10 98.7 87 18 126/59 (81) 95 03/31/17 16:21 98.5 82 18 124/74 (91) 98 Laboratory Tests Test 03/31/17 19:45 Erythrocyte Sedimentation Rate 121 mm/hr Laboratory Tests Test 03/31/17 14:30 04/01/17 07:00 Blood Urea Nitrogen 40 MG/DL Creatinine 9.15 MG/DL Random Glucose 101 MG/DL 65 MG/DL Total Protein 8.2 GM/DL Albumin 2.8 GM/DL Calcium Level 9.0 MG/DL Uric Acid 5.8 MG/DL Alkaline Phosphatase 101 U/L Aspartate Amino Transf (AST/SGOT) 15 U/L Alanine Aminotransferase (ALT/SGPT) 13 U/L Total Bilirubin 0.3 MG/DL Sodium Level 133 MEQ/L Potassium Level 5.0 MEQ/L Chloride Level 93 MEQ/L Carbon Dioxide Level 30.7 MEQ/L Anion Gap 9 MEQ/L Estimat Glomerular Filtration Rate 8 ML/MIN Lipase 95 U/L IMAGING: Finger X-Ray 03/31/17 0000 Signed Impressions: Service Date/Time: March 09:18 - CONCLUSION: 1. Diffuse soft tissue swelling of the fifth finger. 2. No acute fracture or joint dislocation. Lawrence Medel MD Abdomen/Pelvis CT 03/31/17 0000 Signed Impressions: Service Date/Time: March 16:08 - CONCLUSION: 1. Stable complex right parapelvic cyst. 2. No significant changes compared to the prior examination 3. No acute pathology. Lawrence Medel MD Hand X-Ray 03/29/17 0000 Signed Impressions: Service Date/Time: Wednesday, March 29, 2017 03:10 - CONCLUSION: Appearance is worrisome for osteomyelitis involving the distal aspect of the fifth finger proximal phalanx Casimiro Velasquez MD PHYSICAL EXAMINATION GENERAL: No acute distress. HEENT: No icterus. Oropharynx no visible lesions. NECK: Supple. No adenopathy. LUNGS: Clear to auscultation. HEART: Normal S1-S2. ABDOMEN: Bowel sounds present, soft, nontender. EXTREMITIES: The left being index finger swelling is decreased. Visible wrinkling of the skin. Extreme tenderness on palpation and warmth. SKIN: No diffuse rash. NEURO: Nonfocal. PSYCHIATRIC: The patient is calm and cooperative. IMPRESSION 1. Cellulitis of the left index finger. 2. Possible osteomyelitis. Sed rate elevated. 3. End-stage renal disease. Stop Piperacillin/Tazobactam. Patient can receive Vancomycin with dialysis. I recommend 2 weeks and then reassess the finger. Luis M Alcala MD Apr 01, 2017 15:12
--- NOTE | 2017-04-01 16:30 | HHI.PR ---
Subjective Remarks Follow up on patient with a history of ESRD, HD, DM II, HTN, with left hand index finger pain and swelling possible osteomyelitis. Patient had reported increase in nausea and vomiting yesterday and was started on Bentyl, and pantoprazole, along with Zofran PRN for nausea. Patient also had CT scan done and GI was consulted for ongoing nausea and vomiting. Patient was seen today at 12:55 after returning from dialysis. Nurse reported that patient had some twitching and also reported to transporter that he was becoming forgetful. Patient is awake and alert with clear speech, oriented to self, place, and time. He denies any memory problems, states he was just playing around with the dialysis staff when he said that. 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 No weakness noted, moving all extremities spontaneously. He denies any nausea or vomiting and tells me that he has not vomited to day or had any nausea. Repots his abdomen is not painful, but sore from vomiting that he had yesterday. Eating and drinking no issues, no constipation or diarrhea. He denies any chest pain, SOB, dizziness, fever, or chills. Objective Vitals Vital Signs Date Time Temp Pulse Resp B/P (MAP) Pulse Ox O2 Delivery O2 Flow Rate FiO2 04/01/17 12:57 98.1 90 18 157/72 (100) 99 04/01/17 08:29 97.8 82 18 150/69 (96) 96 04/01/17 04:52 98.2 83 18 145/65 (91) 97 04/01/17 00:40 99.0 79 18 100/54 (69) 96 03/31/17 20:36 98 Nasal Cannula 2.00 03/31/17 20:10 98.7 87 18 126/59 (81) 95 03/31/17 16:21 98.5 82 18 124/74 (91) 98 I/O 03/31/17 03/31/17 03/31/17 04/01/17 04/01/17 04/01/17 07:00 15:00 23:00 07:00 15:00 23:00 Intake Total 50 ml 50 ml 1240 ml Output Total 2000 ml Balance 50 ml 50 ml 1240 ml -2000 ml Intake Oral 1240 ml IV Total 50 ml 50 ml Hemodialysis 2000 ml # Voids 4 2 Result Diagram: 03/30/17 0610 04/01/17 0700 Imaging Last Impressions Finger X-Ray 03/31/17 0000 Signed Impressions: Service Date/Time: March 09:18 - CONCLUSION: 1. Diffuse soft tissue swelling of the fifth finger. 2. No acute fracture or joint dislocation. Lawrence Medel MD Abdomen/Pelvis CT 03/31/17 0000 Signed Impressions: Service Date/Time: March 16:08 - CONCLUSION: 1. Stable complex right parapelvic cyst. 2. No significant changes compared to the prior examination 3. No acute pathology. Lawrence Medel MD Hand X-Ray 03/29/17 0000 Signed Impressions: Service Date/Time: Wednesday, March 29, 2017 03:10 - CONCLUSION: Appearance is worrisome for osteomyelitis involving the distal aspect of the fifth finger proximal phalanx Casimiro Velasquez MD Objective Remarks GENERAL: This is a well-nourished, well-developed patient, in no apparent distress. SKIN: Warm and dry. Buttock wound and chest wounds secondary to hydradenitis, left upper arm fistula with +bruit and thrill. Right upper chest subclavian port in place. HEENT: Normocephalic. PERRLA. Nose without bleeding. Airway patent. NECK: Trachea midline. CARDIOVASCULAR: Regular rate and rhythm without murmurs, gallops, or rubs. RESPIRATORY: Clear to auscultation. Breath sounds equal bilaterally. No wheezes , rales, or rhonchi. GASTROINTESTINAL: Abdomen soft, nondistended. Bowel Sounds normoactive x4. Mild diffuse abdominal tenderness to palpation. No nausea or vomiting. MUSCULOSKELETAL: Extremities without clubbing, cyanosis, or edema. Left hand fifth digit with limited ROM due to pain, trace swelling noted. NEUROLOGICAL: Awake and alert. Oriented to time, place, person. No focal neuro deficit. Moves all extremities, strength in all extremities +4, or facial droop , cranial nerves II-XII intact. Normal speech. Judgement normal and appropriate , long and short term memory intact. Procedures None A/P Problem List: (1) Osteomyelitis ICD Code: M86.9 - Osteomyelitis, unspecified Status: Acute (2) DM (diabetes mellitus) ICD Code: E11.9 - Type 2 diabetes mellitus without complications Status: Chronic (3) ESRD (end stage renal disease) on dialysis ICD Code: N18.6 - End stage renal failure on dialysis; Z99.2 - Dependence on renal dialysis Status: Chronic Assessment and Plan 46 y/o male with a history of HTN, Hyperlipidemia, DM, Hidradenitis Suppurativa , ESRD on HD M/W/F, Anxiety, Depression and Gastritis presented to the ED with complaints of pain in his left hand pinky finger. Osteomyelitis, left fifth finger: - Appreciate hand surgery recommendations. No surgical intervention planned at this time - Continue IV antibiotics, ID had discontinued Zosyn recommended two weeks of Vancomycin with Dialysis and reassess finger. - Continue pain control, but decrease dose since patient mills n/v may contribute to gastroparesis End-stage renal disease on hemodialysis Tuesday/Tuesday/Tuesday: - Dialysis per nephrology. - Renal diet Diabetes mellitus: - Monitor Accu-Cheks and cover with sliding scale insulin. Nausea/vomiting, acute: - Started on on Bentyl, and Pantoprazole yesterday. - Lipase and LFT's normal - CT abdomen/pelvis done 03/31 showed stable complex right parapelvic cyst, no significant changes compared to prior CT with no acute pathology. - GI following reviewed imaging, agreeable with Ralph with recommendations, low residual diet. - If nausea and vomiting not improved would consider repeat EGD or HIDA. - Today does not repot any nausea or vomiting, will continue to monitor. DVT prophylaxis: SCDs. Discharge Planning Today no reported nausea or vomiting. If no nausea or vomiting will consider discharge home with home health tomorrow or following day if cleared from GI standpoint, can follow up as out patient with GI for possible gastroparesis. Patient will complete IV antibiotics along with dialysis. Problem Qualifiers (1) Osteomyelitis: Jassi Pierce Apr 01, 2017 16:30
[2017-04-01] MEDS: ONDANSETRON HCL 4 MG/2 ML VIAL IV PUSH PRN (22:38)
[2017-04-02 00:15] VITALS: BP 150/65; PULSE 89; RESP 16; TEMP 98.3; O2SAT 95
[2017-04-02] MEDS: MORPHINE SULFATE 4 MG/ML INJ IV PUSH PRN ×3 (04:22→12:06)
[2017-04-02 05:21] VITALS: BP 128/79; PULSE 80; RESP 17; TEMP 98; O2SAT 96
[2017-04-02] MEDS: ERYTHROMYCIN ETHYLSUCCINATE 400 MG/5 ML SUSP 100 ML BOTTLE PO SCH ×2 (06:03→13:02)
[2017-04-02 08:00] VITALS: BP 137/63; PULSE 82; RESP 17; TEMP 98.3; O2SAT 94
[2017-04-02] MEDS: INSULIN ASPART SUPPLEMENTAL SCALE SQ SCH ×2 (08:00→11:31)
[2017-04-02] MEDS: RESP: ALBUTEROL 2.5 MG/IPRATROPIUM 0.5 MG NEB (SCH) NEB ×2 (08:51→13:19)
[2017-04-02 08:53] VITALS: O2SAT 93
[2017-04-02] MEDS: CARVEDILOL 12.5 MG TAB PO SCH (08:59)
[2017-04-02] MEDS: SODIUM CHLORIDE 0.9% FLUSH 10 ML FLUSH IV FLUSH SCH (08:59)
[2017-04-02] MEDS: PANTOPRAZOLE SOD 40 MG DELAYED RELEASE TAB PO SCH (08:59)
[2017-04-02] MEDS: hydrALAZINE HCL 100 MG TAB PO SCH ×2 (08:59→12:06)
[2017-04-02] MEDS: DICYCLOMINE HCL 20 MG TAB PO SCH ×2 (08:59→12:05)
[2017-04-02 12:00] VITALS: BP 99/51; PULSE 69; RESP 16; TEMP 98.2; O2SAT 92
--- NOTE | 2017-04-02 12:44 | HHI.DS ---
Discharge Summary Admission Date Mar 29, 2017 at 04:30 Discharge Date: Apr 02, 2017 Admitting Diagnosis Infectious Tenosynovitis (1) Osteomyelitis ICD Code: M86.9 - Osteomyelitis, unspecified Status: Acute (2) DM (diabetes mellitus) ICD Code: E11.9 - Type 2 diabetes mellitus without complications Status: Chronic (3) ESRD (end stage renal disease) on dialysis ICD Code: N18.6 - End stage renal failure on dialysis; Z99.2 - Dependence on renal dialysis Status: Chronic (4) Abdominal pain ICD Code: R10.9 - Unspecified abdominal pain Status: Resolved (5) Pain in finger of left hand ICD Code: M79.645 - Pain in left finger(s) Status: Acute Procedures None Brief History - From Admission 46 y/o male with a history of HTN, Hyperlipidemia, DM, Hidradenitis Suppurativa , ESRD on HD M/W/F, Anxiety, Depression and Gastritis presented to the ED with complaints of pain in his left pinky finger. He states on Tuesday his pinky began to have pain and by Tuesday it was swollen. He states the pain is sharp, intermittent in left pinky finger with radiation to wrist with associated fever , chills, loose stools, nausea and vomiting. He states on Tuesday fever was 101 at home, Tuesday 99 when checked by home health. Denies any chest pain, or sob. CBC/BMP: 03/30/17 0610 04/01/17 0700 Significant Findings Laboratory Tests Test 03/31/17 04:20 03/31/17 14:30 03/31/17 19:45 04/01/17 07:00 Blood Urea Nitrogen 40 MG/DL (7-18) Creatinine 9.15 MG/DL (0.60-1.30) Albumin 2.8 GM/DL (3.4-5.0) Sodium Level 133 MEQ/L (136-145) Chloride Level 93 MEQ/L (98-107) Estimat Glomerular Filtration Rate 8 ML/MIN (>89) Erythrocyte Sedimentation Rate 121 mm/hr (0-15) Random Glucose 65 MG/DL (74-106) Imaging Last Impressions Finger X-Ray 03/31/17 0000 Signed Impressions: Service Date/Time: March 09:18 - CONCLUSION: 1. Diffuse soft tissue swelling of the fifth finger. 2. No acute fracture or joint dislocation. Lawrence Medel MD Abdomen/Pelvis CT 03/31/17 0000 Signed Impressions: Service Date/Time: March 16:08 - CONCLUSION: 1. Stable complex right parapelvic cyst. 2. No significant changes compared to the prior examination 3. No acute pathology. Lawrence Medel MD Hand X-Ray 03/29/17 0000 Signed Impressions: Service Date/Time: Wednesday, March 29, 2017 03:10 - CONCLUSION: Appearance is worrisome for osteomyelitis involving the distal aspect of the fifth finger proximal phalanx Casimiro Velasquez MD PE at Discharge GENERAL: This is a well-nourished, well-developed patient, in no apparent distress. SKIN: Warm and dry. Buttock wound and chest wounds secondary to hydradenitis, left upper arm fistula with +bruit and thrill. Right upper chest subclavian port in place. HEENT: Normocephalic. PERRLA. Nose without bleeding. Airway patent. NECK: Trachea midline. CARDIOVASCULAR: Regular rate and rhythm without murmurs, gallops, or rubs. RESPIRATORY: Clear to auscultation. Breath sounds equal bilaterally. No wheezes , rales, or rhonchi. GASTROINTESTINAL: Abdomen soft, nondistended. Bowel Sounds normoactive x4. No abdominal tenderness to light palpation. No nausea or vomiting. MUSCULOSKELETAL: Extremities without clubbing, cyanosis, or edema. Left hand fifth digit with limited ROM due to pain, trace swelling noted. NEUROLOGICAL: Awake and alert. Oriented to time, place, person. No focal neuro deficit. Moves all extremities, strength in all extremities +4, or facial droop , cranial nerves II-XII intact. Normal speech. Judgement normal and appropriate , long and short term memory intact. Pt update on day of discharge Patient seen and examined in room, he is awake and alert ready to go home. He is no acute distress and appears comfortable. States he lives right down the road and does dialysis in [place], his next scheduled date for dialysis is Tuesday. He denies any chest pain, SOB, fever, chills, nausea, vomiting, abdominal pain, constipation or diarrhea. Hospital Course This is a 46 year old male with a PMH of HTN, Hyperlipidemia, DM, Hidradenitis Suppurativa, ESRD on HD M//, Anxiety, Depression and Gastritis presented to the ED with complaints of pain in his left pinky finger. He was admitted and worked up for cellulitis and possible osteomyelitis of digit. Hand surgery saw patient and determined he was not a surgical candidate, they recommended continued elevation, and OT. Patient was treated with broad spectrum antibiotics , Zosyn and Vancomycin. Swelling in finger improved with improvements in pain as well, no growth of Blood cultures, ID recommended discontinuing Zosyn and continuing Vancomycin with dialysis for 2 weeks and then reassess finger. Patient also had evaluation by GI due to nausea and vomiting, stated on pantoprazole and Bentyl with relief. CT done of abdomen/pelvis showing no acute pathology, nausea and vomiting resolved since yesterday. Renal has cleared patient for discharge, will complete IV antibiotics with dialysis treatment. States he is ready to go home. He denies any chest pain, SOB, fever, chills, nausea or vomiting. Pt Condition on Discharge: Fair Discharge Disposition: Discharge Home Discharge Time: <= 30 minutes Discharge Instructions DIET: Follow Instructions for: As Tolerated, No Restrictions, Diabetic Diet, Renal Failure Diet Speech Therapy-Diet Recommends: Regular Activities you can perform: Regular-No Restrictions Follow up Referrals: Hand Surgery - 2 Weeks with Saturnino Ramirez III, MD Nephrology - 2-3 Days with Blair Richardson MD PCP Follow-up - 1 Week New Medications: Dicyclomine (Dicyclomine) 20 Mg Tab 20 MG PO QID for stomach, #120 TAB Pantoprazole (Pantoprazole) 40 Mg Tab 40 MG PO DAILY for Dyspnea, #30 TAB Continued Medications: Amlodipine (Amlodipine) 5 Mg Tab 10 MG PO DAILY for Blood Pressure Management, #30 TAB [address] (Aspirin 81) 81 Mg Tabdr 81 MG PO DAILY, TAB 0 Refills Carvedilol (Carvedilol) 12.5 Mg Tab 25 MG PO BID, #60 TAB 0 Refills Cinacalcet (Sensipar) 30 Mg Tab 60 MG PO DAILY, #30 TAB 0 Refills Clonidine (Clonidine) 0.1 Mg Tab 0.1 MG PO Q6HR PRN for SYS BP GREATER THAN 160 MMHG, #60 TAB 0 Refills Doxepin (Doxepin) 150 Mg Cap 300 MG PO DAILY, #30 CAP 0 Refills Hydralazine (Hydralazine) 100 Mg Tab 100 MG PO TID for Blood Pressure Management, TAB 0 Refills Take with meals Insulin Human Isophane-Regular 70-30 Inj (Novolin 70-30 Inj) 1,000 Unit/10 Ml Vial 1 UNITS SQ for Blood Sugar Management, ML 0 Refills Lorazepam (Ativan) 1 Mg Tab 1 MG PO DAILY PRN for ANXIETY AND/OR AGITATION, TAB 0 Refills Losartan (Cozaar) 50 Mg Tab 50 MG PO HS for Blood Pressure Management, #30 TAB 3 Refills Mirtazapine (Mirtazapine) 15 Mg Tab 15 MG PO HS for sleep, #30 TAB Pravastatin (Pravachol) 40 Mg Tab 40 MG PO DAILY for Cholesterol Management, #30 TAB 0 Refills (This prescription has been renewed) Discontinued Medications: Omeprazole (Omeprazole) 40 Mg Cap 20 PO DAILY, #30 CAP 0 Refills Rifampin (Rifampin) 300 Mg Cap 300 MG PO DAILY for Infection, CAP 0 Refills Additional Information Infusion sheet for Vancomycin to be infused for two weeks with dialysis treatments completed per telephone instructions. The exam, history, and the medical decision-making described in the above note were completed with the assistance of the mid-level provider. I reviewed and agree with the findings presented. I attest that I had a [id number] encounter with the patient on the same day, and personally performed and documented my assessment and findings in the medical record. Patient has no complaints. He denies any pain. He stated that he is ready to go home. Patient remains afebrile. No events overnight. GENERAL: This is a well-nourished, well-developed patient, in no apparent distress. CV RRR. no r/m/g RESPIRATORY: Clear to auscultation. Breath sounds equal bilaterally. No wheezes , rales, or rhonchi. GASTROINTESTINAL: Abdomen soft, nondistended. Bowel Sounds normoactive x4. No abdominal tenderness to light palpation. No nausea or vomiting. MUSCULOSKELETAL: Left hand fifth digit with limited ROM due to pain, trace swelling noted. Patient was admitted due to possible infection of his left pinky finger. Hand surgeon was consulted and stated that patient not a surgical candidate and recommended IV antibiotics. Infectious disease consulted patient was treated empirically with Zosyn and vancomycin. Later Zosyn was discontinued and infectious disease recommended 2 weeks of vancomycin with dialysis. Patient did well during the hospital course with no other consultations. Jassi Pierce Apr 02, 2017 12:44 Janna Bassett MD Apr 02, 2017 15:45
--- NOTE | 2017-04-02 12:49 | HHI.NPPN ---
Subjective History of Present Illness 46 year old with ESRD, DM, Left little finger infection Additional Remarks Patient is alert, has still pain in left hand finger, no SOB. Review of Systems Musculoskeletal MS: Pain/Stiffness Objective Data Data Vital Signs Date Time Temp Pulse Resp B/P (MAP) Pulse Ox O2 Delivery O2 Flow Rate FiO2 04/02/17 12:00 98.2 69 16 99/51 (67) 92 04/02/17 08:53 93 21 04/02/17 08:00 98.3 82 17 137/63 (87) 94 04/02/17 05:21 98.0 80 17 128/79 (95) 96 04/02/17 00:15 98.3 89 16 150/65 (93) 95 04/01/17 22:28 93 Nasal Cannula 1.00 04/01/17 19:00 98.5 98 16 143/81 (101) 16 04/01/17 16:17 98.9 94 18 136/64 (88) 95 04/01/17 12:57 98.1 90 18 157/72 (100) 99 -: 03/30/17 0610 04/01/17 0700 Physical Exam General Appearance: Well Nourished, No Acute Distress, Comfortable Neck Neck Exam: Neck Supple Pulmonary Resp Exam: Clear Bilaterally, Breath Sounds Equal Cardiology CV Exam: Regular, Normal Sinus Rhythm Gastrointestinal/Abdomen GI Exam: Soft, Non-Tender, Bowel Sounds Present Extremeties Extremities Exam: Moderate Edema (left finger) Neurologic Neuro Exam: Alert, Awake, Oriented Psychiatric Psych Exam: Appropriate Responses Assessment/Plan Problem List: (1) ESRD (end stage renal disease) on dialysis ICD Codes: N18.6 - End stage renal failure on dialysis; Z99.2 - Dependence on renal dialysis Status: Chronic Plan: Hemodialysis. On Tuesday, Tuesday and Tuesday continue supportive care vancomycin 1 g with each dialysis HD done yesterday. Continue Vanco. with HD. (2) Diabetes ICD Codes: E11.9 - Diabetes mellitus Status: Chronic Plan: Continue to monitor (3) Hypertension ICD Codes: I10 - Hypertension Status: Chronic Plan: Blood pressures checks while in the hospital (4) Osteomyelitis ICD Codes: M86.9 - Osteomyelitis, unspecified Status: Acute Plan: Hand surgery consulted on antibiotic Problem Qualifiers (1) Diabetes: (2) Osteomyelitis: Teresita Carroll MD Apr 02, 2017 12:49
[2017-04-02] MEDS ORDERED: PRAV40TA PO (12:57)
[2017-04-02] MEDS ORDERED: PANT40TA3 PO (12:57)
[2017-04-02] MEDS ORDERED: DICY20TA10 PO (12:57)
--- NOTE | 2017-04-02 14:55 | HHI.DCPOC ---
Discharge Care Plan Diagnosis: (1) Nausea & vomiting (2) Osteomyelitis (3) Pain in finger of left hand (4) ESRD (end stage renal disease) on dialysis Your Health Problems Are: Inflammation Swelling Additional Problems Goals to Promote Your Health * To prevent worsening of your condition and complications * To maintain your health at the optimal level Directions to Meet Your Goals Take your medications as prescribed Follow your dietary instruction Follow activity as directed Keep your appointments as scheduled Take your immunizations and boosters as scheduled If your symptoms worsen call your PCP, if no PCP go to Urgent Care Center or Emergency Room Smoking is Dangerous to Your Health. Avoid second hand smoke Call the 24-hour hour crisis hotline for domestic abuse at Jassi PierceP Apr 02, 2017 14:55
--- NOTE | 2017-04-02 14:55 | HHI.DCPOC ---
Discharge Care Plan Diagnosis: (1) Nausea & vomiting (2) Osteomyelitis (3) Pain in finger of left hand (4) ESRD (end stage renal disease) on dialysis Your Health Problems Are: Inflammation Swelling Additional Problems Goals to Promote Your Health * To prevent worsening of your condition and complications * To maintain your health at the optimal level Directions to Meet Your Goals Take your medications as prescribed Follow your dietary instruction Follow activity as directed Keep your appointments as scheduled Take your immunizations and boosters as scheduled If your symptoms worsen call your PCP, if no PCP go to Urgent Care Center or Emergency Room Smoking is Dangerous to Your Health. Avoid second hand smoke Call the 24-hour hour crisis hotline for domestic abuse at Jassi PierceP Apr 02, 2017 14:55
--- NOTE | 2017-04-02 14:55 | HHI.DCPOC ---
Discharge Care Plan Diagnosis: (1) Nausea & vomiting (2) Osteomyelitis (3) Pain in finger of left hand (4) ESRD (end stage renal disease) on dialysis Your Health Problems Are: Inflammation Swelling Additional Problems Goals to Promote Your Health * To prevent worsening of your condition and complications * To maintain your health at the optimal level Directions to Meet Your Goals Take your medications as prescribed Follow your dietary instruction Follow activity as directed Keep your appointments as scheduled Take your immunizations and boosters as scheduled If your symptoms worsen call your PCP, if no PCP go to Urgent Care Center or Emergency Room Smoking is Dangerous to Your Health. Avoid second hand smoke Call the 24-hour hour crisis hotline for domestic abuse at Jassi PierceP Apr 02, 2017 14:55
--- NOTE | 2017-04-02 15:21 | HHI.FF ---
cc: Teresita Carroll MD; Blair Richardson MD Infusion Therapy Location of Infusion Therapy: Dialysis Center Patient Information Patient Weight 82 kg Diagnosis: (1) Cellulitis of finger of left hand Coded Allergies: Fish Containing Products (Verified Allergy, Severe, SWELLING-CANT BREATH- HIVES, 03/29/17) diatrizoate meglumine (Verified Allergy, Severe, nausea/vomiting, 03/29/17 ) causes n/v HAD TEST TODAY 11/15/11 TOOK BENADRYL AND DID OK. gadobenic acid (Verified Allergy, Severe, nausea/vomiting, 03/29/17) causes n/v HAD TEST TODAY 11/15/11 TOOK BENADRYL AND DID OK. gadodiamide (Verified Allergy, Severe, nausea/vomiting, 03/29/17) causes n/v HAD TEST TODAY 11/15/11 TOOK BENADRYL AND DID OK. gadoteridol (Verified Allergy, Severe, nausea/vomiting, 03/29/17) causes n/v HAD TEST TODAY 11/15/11 TOOK BENADRYL AND DID OK. iodixanol (Verified Allergy, Severe, nausea/vomiting, 03/29/17) causes n/v HAD TEST TODAY 11/15/11 TOOK BENADRYL AND DID OK. iohexol (Verified Allergy, Severe, nausea/vomiting, 03/29/17) causes n/v HAD TEST TODAY 11/15/11 TOOK BENADRYL AND DID OK. metoclopramide (Verified Allergy, Severe, ANXIETY, 03/29/17) sumatriptan (Verified Allergy, Severe, AGITATION/CAUSED BREAK OUT, ) Administer Medication Vancomycin 1 gram IV q 48 hours w/Hemodialysis M,W,F Start Treatment: Apr 04, 2017 Stop Treatment: Apr 18, 2017 Additional Information Venous access: Other Additional Instructions [x] Peripheral flush and dressing changes per protocol [x] Implanted port and central line tender flakeboard: * Implanted port: 10 ml Normal Saline followed by 5 ml Heparin 100 units/ml Heparin flush after each use and monthly to maintain. [] May leave port accessed during therapy. [] May leave peripheral site accessed for duration of therapy. [x] If patient has SOB or respiratory distress, check oxygen saturation. If less than 90% or clinical signs of respiratory distress, administer oxygen at 2 L/min. via nasal cannula and notify physician. [x] Anaphylaxis/Reaction orders: * Stop infusion. * Keep IV line open with saline flush. * Notify physician. * Monitor vital signs every 15 minutes until symptoms resolve. * Check Oxygen saturation; Oxygen at 2 L/min. via nasal cannula if less than 90% or clinical signs of respiratory distress. * Administer diphenhydramine (Benadryl) 25 mg IV STAT, (unless patient has received as pre-med). May repeat once, if necessary. * Solu-Cortef 250 mg IVP over 30-60 seconds, use 100 mg vials for each dissolution. * Epinephrine (1mg/1 ml) 0.3 mg subcutaneously or IVP now with any signs of respiratory distress. * Check with physician for new additional pre-med orders if patient is re- challenged or re-treated. [x] May remove PICC line when treatment complete, after confirming with Physician. [x] If the patient is admitted to the hospital, the ED, or transferred via [facility] , complete transfer form including medication reconciliation order sheet. Laboratory Tests Weekly Labs: CBC w/diff (Due every Mondays), Vancomycin Trough (Due every Mondays) Leighton Gomez Apr 02, 2017 15:21
[2017-04-02] MEDS ORDERED: NORC5TAB PO (15:34)
== END 2017-04-02 16:13 | disposition home or self-care (01) | DRG 638 ==
LOC: NEPE 02:31 → NEDA 04:29 → OBSVTOIN 04:30 → N05A 05:05
PROVIDERS: ADMIT Family Medicine; ATTEND Family Medicine
PROC: 5A1D70Z Performance of Urinary Filtration, Intermittent, Less than 6 Hours Per Day (ICD-10-PCS; principal; 2017-03-30)
DX: E11.69 Type 2 diabetes mellitus with other specified complication (principal); M86.8X4 Other osteomyelitis, hand; I12.0 Hypertensive chronic kidney disease with stage 5 chronic kidney disease or end stage renal disease; K31.84 Gastroparesis; N18.6 End stage renal disease; E11.22 Type 2 diabetes mellitus with diabetic chronic kidney disease; E11.43 Type 2 diabetes mellitus with diabetic autonomic (poly)neuropathy; E87.5 Hyperkalemia; L03.012 Cellulitis of left finger; D57.3 Sickle-cell trait; E20.9 Hypoparathyroidism, unspecified; E78.5 Hyperlipidemia, unspecified; L73.2 Hidradenitis suppurativa; M19.90 Unspecified osteoarthritis, unspecified site; F32.9 Major depressive disorder, single episode, unspecified; F41.9 Anxiety disorder, unspecified; Z79.4 Long term (current) use of insulin; Z91.041 Radiographic dye allergy status; Z91.013 Allergy to seafood; Z99.2 Dependence on renal dialysis
CPT/HCPCS: 73130; 73140; 74176; 80053; 80202; 82947; 82948; 83605; 83690; 84100; 84550; 85025; 85652; 87040; 90935; 94640; 94664; 96365; 96374; 96375; 96376; J0696; J0744; J1642; J2270; J2405; J2543; J2765; J3370; J7040; J7050; Q4081; Q9963